=== PATIENT | male | born 1950 | race Hispanic/Latino ===

== ENCOUNTER 2018-09-19 18:36 | Emergency (ER) | payer OTHER ==
[2018-09-19 19:28] LABS: Absolute Lymphocytes (CBC) 0.4 K/uL (0.7-4.9); Absolute Monocytes 0.6 K/uL (0.1-1.3); Absolute Neutrophil 11.4 K/uL (1.8-8.0); Eosinophils % 0.9 % (0-4.4); Hematocrit 44.3 % (39.6-49.0); Lymphocytes % 3.3 % (15.3-44.8); MPV 9.2 fL (7.6-11.3); Monocytes % 4.6 % (3.3-12.3); RBC Red Blood Cell Count 5.25 M/uL (4.33-5.43)
[2018-09-19 19:33] LABS: Protime INR 1.17
[2018-09-19] MEDS ORDERED: DEXAMETHASONE 10 MG/ML VIAL ONE ×2 (19:35→21:41)
[2018-09-19] MEDS ORDERED: HYDROCOD 2.5mg-ACETAMIN 108mg/5mL Soln ONE (19:36)
[2018-09-19] MEDS ORDERED: NA CHLORIDE 0.9% 1,000 ML ONE ×3 (19:36→22:33)
--- NOTE | 2018-09-19 19:47 | RAD REPORT ---
EXAM DESCRIPTION: RAD - Chest Single View - 09/19/2018 7:40 pm CLINICAL HISTORY: difficulty swallowing Chest pain. COMPARISON: CHEST SINGLE VIEW dated 06/11/2012 FINDINGS: Portable technique limits examination quality. The lungs are grossly clear. The heart is upper limit of normal in size. No displaced fractures. IMPRESSION: No acute intrathoracic process suspected.
[2018-09-19 19:57] LABS: Albumin 3.7 g/dL (3.4-5.0); Potassium 3.8 mmol/L (3.5-5.1); Protein, Total 8.3 g/dL (6.4-8.2)
[2018-09-19 19:58] LABS: Blood Morphology Comment NOT SEEN (NOT SEEN); Platelet Estimate ADEQ
[2018-09-19] MEDS ORDERED: MORPHINE 4 MG/ML SYR ONE (20:02)
--- NOTE | 2018-09-19 21:05 | RAD REPORT ---
EXAM DESCRIPTION: CT - Soft Tissue Neck W/Contr CLINICAL HISTORY: difficulty swallowing;Sore throat COMPARISON: No comparisons TECHNIQUE All CT scans are performed using dose optimization technique as appropriate and may includ e automated exposure control or mA/KV adjustment according to patient size. FINDINGS: There is a large amount of abnormal soft tissue noted in the pharynx, particularly along t he right tonsil and tongue base. The poorly defined soft tissue contains fluid and results right to l eft mass effect on the pharyngeal structures. Rim enhancing fluid collection to indicate abscess is n ot seen. The right submandibular gland appears prominent in size. Multiple enlarged lymph nodes are seen along the jugular chain bilaterally, but greater on the right. Mild degenerative changes present in the lower cervical spine. The thyroid gland is normal in appearance. The upper lung taylor are clear. IMPRESSION: A large amount of abnormal soft tissue and fluid is present in the pharynx along the rig ht in the region of the palatine tonsil and tongue base. There is moderate [id number] mass effect on the pharyngeal structures present. Moderate narrowing of the pharynx is seen. Both infectious/infl ammatory and neoplastic etiologies are possible and direct visualization is advised.
[2018-09-19] MEDS ORDERED: CEFTRIAXONE/SWI 1gm 1 GM/10 ML SYR ONE (21:28)
[2018-09-19] MEDS ORDERED: CLINDAMYCIN 900MG/D5W 900 MG/50 ML IVPB IV ONE (21:28)
[2018-09-19] MEDS ORDERED: NA CHLORIDE 0.9% 100 ML IV ONE (22:33)
[2018-09-19] MEDS ORDERED: AMPICILLIN/SULBACTAM 3GM/VIAL ONE (22:33)
--- NOTE | 2018-09-19 22:51 | EDPHYS ---
Physician Documentation [facility] Name: Sylvain Veronica Age: 68 yrs Sex: Male : 1950 Arrival Date: 09/19/2018 Time: 18:40 Bed 19 Private MD: ED Physician Leonel Almazan HPI: 09/19 19:00 This 68 yrs old Male presents to ER via Ambulatory with complaints of Flu cp Symptoms. 19:00 The patient presents with sore throat, dysphagia, of both solids and liquids. cp 19:00 The patient describes throat pain as constant. Onset: The symptoms/episode cp began/occurred 2 day(s) ago. 19:00 Associated signs and symptoms: Pertinent positives: fever, Pertinent negatives chest cp pain, cough, headache. Historical: - Allergies: 18:52 No Known Allergies; iw - Home Meds: 18:52 Metformin Oral [Active]; insulin [Active]; iw - PMHx: 18:52 Diabetes - IDDM; iw - PSHx: 18:52 None; iw - Immunization history:: Adult Immunizations not up to date. - Social history:: Smoking status: Patient/guardian denies using tobacco. - Ebola Screening: : Patient negative for fever greater than or equal to 101.5 degrees Fahrenheit, and additional compatible Ebola Virus Disease symptoms Patient denies exposure to infectious person Patient denies travel to an Ebola-affected area in the 21 days before illness onset No symptoms or risks identified at this time. ROS: 19:05 Constitutional: Positive for fever, poor PO intake, Negative for body aches, chills. cp 19:05 Eyes: Negative for injury, pain, redness, and discharge. cp 19:05 ENT: Positive for difficulty swallowing, hoarseness, sore throat, Negative for drainage from ear(s), ear pain, difficulty handling secretions. 19:05 Neck: Negative for pain with movement, pain at rest, stiffness. 19:05 Cardiovascular: Negative for chest pain, edema, palpitations. 19:05 Respiratory: Negative for cough, shortness of breath, wheezing. 19:05 Abdomen/GI: Negative for abdominal pain, nausea, vomiting, and diarrhea, black/tarry stool, rectal bleeding. 19:05 Back: Negative for pain at rest, pain with movement, radiated pain. 19:05 Skin: Negative for cellulitis, rash. 19:05 Neuro: Negative for altered mental status, headache, weakness. 19:05 All other systems are negative. Exam: 19:10 Constitutional: The patient appears in no acute distress, alert, awake, cp non-diaphoretic, well developed, well nourished, obviously ill, uncomfortable. 19:10 Head/Face: Normocephalic, atraumatic. cp 19:10 Eyes: Periorbital structures: appear normal, Pupils: equal, round, and reactive to light and accomodation, Extraocular movements: intact throughout, Conjunctiva: normal, no exudate, no injection, Sclera: no appreciated abnormality, Lids and lashes: appear normal, bilaterally. 19:10 ENT: External ear(s): are unremarkable, Ear canal(s): are normal, clear, TM's: bulging, is not appreciated, bilaterally, dullness, bilaterally, erythema, is not appreciated, bilaterally, Nose: is normal, Mouth: Lips: moist, Oral mucosa: moist, Tongue: is normal, Posterior pharynx: Airway: patent, Uvula: no erythema, shifted to left, swelling, that is moderate, erythema, that is moderate, Voice: is hoarse. 19:10 Neck: ROM/movement: is normal, is supple, no range of motions limitations, no meningismus, no nuchal rigidity. 19:10 Chest/axilla: Inspection: normal, Palpation: is normal, no crepitus, no tenderness. 19:10 Cardiovascular: Rate: tachycardic, Rhythm: regular. 19:10 Respiratory: the patient does not display signs of respiratory distress, Respirations: normal, no use of accessory muscles, no retractions, no splinting, no tachypnea, labored breathing, is not present, Breath sounds: are clear throughout, no decreased breath sounds, no stridor, no wheezing. 19:10 Abdomen/GI: Inspection: abdomen appears normal, Bowel sounds: active, all quadrants, Palpation: abdomen is soft and non-tender, in all quadrants. 19:10 Neuro: Orientation: to person, place \T\ time. Mentation: is normal, Cerebellar function: is grossly normal, Motor: moves all fours, strength is normal, Sensation: is normal, Gait: is steady. 19:33 ECG was reviewed by the Attending Physician. cp Vital Signs: 18:52 BP 161 / 90; Pulse 125; Resp 18 S; Temp 100.3(O); Pulse Ox 95% on R/A; Weight 92.99 kg; iw Height 5 ft. 10 in. (177.80 cm); Pain 9/10; 19:55 BP 156 / 81; Pulse 119; Resp 20; Pulse Ox 97% ; ao 20:57 BP 144 / 77; Pulse 116; Resp 22; Pulse Ox 98% on R/A; ao 21:35 BP 152 / 83; Pulse 114; Resp 16; Temp 98.9(O); Pulse Ox 97% on R/A; Pain 0/10; ao 23:25 BP 157 / 80; Pulse 112; Resp 20; Pulse Ox 99% on R/A; ao 18:52 Body Mass Index 29.41 (92.99 kg, 177.80 cm) iw MDM: 18:54 Patient medically screened. cp 22:00 Data reviewed: vital signs, nurses notes, lab test result(s), EKG, radiologic studies, cp CT scan, plain films. 22:00 Test interpretation: by ED physician or midlevel provider: ECG, plain radiologic cp studies. Counseling: I had a detailed discussion with the patient and/or guardian regarding: the historical points, exam findings, and any diagnostic results supporting the discharge/admit diagnosis, lab results, radiology results, the need to transfer to another facility. 22:10 Physician consultation: DR Wilkins, ENT physician \T\[facility], will cp consult and requests patient be transferred to services of hospitalist. 09/19 19:06 Order name: CBC with Diff; Complete Time: 20:10 cp 09/19 19:51 Interpretation: Normal except: WBC 12.8; NGHIA% 89.2; LYM% 3.3; BASO% 2.0; NEUT A 11.4; cp LYMA 0.4. 09/19 19:06 Order name: CMP; Complete Time: 20:10 cp 09/19 20:10 Interpretation: Normal except: GLUC 268; BUN 28; GFR 73; AST 11; ALK 149; TP 8.3; A/G cp 0.8; GLOB 4.6. 09/19 19:06 Order name: PT-INR; Complete Time: 19:51 cp 09/19 19:06 Order name: Ptt, Activated; Complete Time: 19:51 cp 09/19 19:06 Order name: XRAY Chest (1 view) cp 09/19 19:06 Order name: CT Soft Tissue Neck W/contr; Complete Time: 21:08 cp 09/19 19:33 Order name: Manual Differential; Complete Time: 20:10 EDMS 09/19 19:51 Order name: RAD; Complete Time: 19:52 EDMS 09/19 19:52 Interpretation: Report reviewed. 09/19 19:06 Order name: EKG; Complete Time: 19:07 cp 09/19 19:06 Order name: EKG - Nurse/Tech; Complete Time: 19:38 cp 09/19 22:25 Order name: Accucheck Blood Glucose; Complete Time: 22:39 cp EC:33 Rate is 121 beats/min. Rhythm is regular. WA interval is normal. QRS interval is cp normal. QT interval is normal. Interpreted by me. Reviewed by me. Administered Medications: 19:33 Drug: Decadron - Dexamethasone 10 mg Route: IVP; Site: left forearm; ao 20:56 Follow up: Response: No adverse reaction ao 19:34 Drug: NS 0.9% 500 ml Route: IV; Rate: bolus; Site: right forearm; ao 20:56 Follow up: IV Status: Completed infusion; IV Intake: 500ml ao 19:34 Not Given (Pt unable to swalow): Lortab Liquid 15 ml PO once ao 19:54 Drug: morphine 4 mg Route: IVP; Site: right forearm; ao 20:56 Follow up: Response: No adverse reaction; Pain is decreased ao 19:55 Drug: NS 0.9% 500 ml Route: IV; Rate: bolus; Site: right forearm; ao 20:56 Follow up: IV Status: Completed infusion; IV Intake: 500ml ao 20:45 Drug: NS 0.9% 1000 ml Route: IV; Rate: 125 ml/hr; Site: left antecubital; ao 21:24 Drug: Clindamycin 900 mg Route: IVPB; Infused Over: 30 mins; Site: right forearm; ao 23:00 Follow up: Response: No adverse reaction; IV Status: Completed infusion; IV Intake: ao 100ml 21:24 Drug: Rocephin - (cefTRIAXone) 1 grams Route: IVPB; Infused Over: 30 mins; Site: left ao antecubital; 22:30 Follow up: Response: No adverse reaction; IV Status: Completed infusion; IV Intake: 10mlao 21:33 Drug: Decadron - Dexamethasone 10 mg Route: IVP; Site: left antecubital; ao 23:00 Follow up: Response: No adverse reaction ao 22:20 Drug: NS 0.9% 1000 ml Route: IV; Rate: 1 bolus; Site: right forearm; ao 23:40 Follow up: IV Status: Completed infusion; IV Intake: 1000ml ao 22:30 Drug: Unasyn 3 grams Route: IVPB; Infused Over: 30 mins; Site: left antecubital; ao 23:20 Follow up: IV Status: Completed infusion; IV Intake: 100ml ao Point of Care Testing: Blood Glucose: 22:37 Blood Glucose: 246 mg/dL; gm Ranges: Critical Glucose Levels:Adult <50 mg/dl or >400 mg/dl <40 mg/dl or >180 mg/dl Disposition: 09/19/18 22:50 Transfer ordered to [facility]. Diagnosis is Right Peritonsillitis. - Reason for transfer: Higher level of care. - Accepting physician is DR Juarez. - Condition is Stable. - Problem is new. - Symptoms have improved. Addendum: 09/23/2018 07:05 Co-signature as Attending Physician, Leonel Almazan MD I agree with the assessment and c veliz plan of care. Signatures: Dispatcher [employer] Leonel Ford MD MD cha Williams, Irene, RN Leonel New PA PA cp Ortiz, Alex, RN RN ao Corrections: (The following items were deleted from the chart) 09/19 19:51 19:51 Normal except: WBC 12.8; NGHIA% 89.2; LYM% 3.3; BASO% 2.0; NEUT A 11.4. cp cp 20:10 20:10 Normal except: GLUC 268; BUN 28; GFR 73; AST 11; ALK 149; TP 8.3. cp cp 20:10 20:10 Normal except: GLUC 268; BUN 28; GFR 73; AST 11; ALK 149; TP 8.3; A/G 0.8. cp cp 20:38 18:55 Influenza Screen (A \T\ B)+BA.LAB.BRZ ordered. EDWA EDMS 20:38 18:55 Group A Streptococcus Rapid Sc+BA.LAB.BRZ ordered. EDMS EDMS 21:24 The patient presents with sore throat, dysphagia, of both solids and liquids, cp cp : 21:24 The patient describes throat pain as constant, cp cp : 21:24 Onset: The symptoms/episode began/occurred 2 day(s) ago, cp cp : 21:24 Severity of symptoms: in the emergency department the symptoms are unchanged, cp despite home interventions, cp : 21:24 Associated signs and symptoms: Pertinent positives: fever, Pertinent negatives cp cough, cp 09/20 00:04 09/19 22:50 09/19/2018 22:50 Transfer ordered to [facility]. ao Diagnosis is Right Peritonsillitis. Reason for transfer: Higher level of care. Accepting physician is DR Juarez. Condition is Stable. Problem is new. Symptoms have improved. cp
--- NOTE | 2018-09-19 22:51 | ER ---
Nurse's Notes [facility] Name: Sylvain Veronica Age: 68 yrs Sex: Male : 1950 Arrival Date: 09/19/2018 Time: 18:40 Bed 19 Private MD: Diagnosis: Right Peritonsillitis Presentation: 09/19 18:49 Presenting complaint: Patient states: sore throat, can't swallow X 2 days, denies iw fever. Transition of care: patient was not received from another setting of care. Onset of symptoms was September 17, 2018. Risk Assessment: Do you want to hurt yourself or someone else? Patient reports no desire to harm self or others. Initial Sepsis Screen: Does the patient meet any 2 criteria? HR > 90 bpm. Does the patient have a suspected source of infection?. Care prior to arrival: None. 18:49 Method Of Arrival: Ambulatory iw 18:49 Acuity: JACKIE 3 iw Historical: - Allergies: 18:52 No Known Allergies; iw - Home Meds: 18:52 Metformin Oral [Active]; insulin [Active]; iw - PMHx: 18:52 Diabetes - IDDM; iw - PSHx: 18:52 None; iw - Immunization history:: Adult Immunizations not up to date. - Social history:: Smoking status: Patient/guardian denies using tobacco. - Ebola Screening: : Patient negative for fever greater than or equal to 101.5 degrees Fahrenheit, and additional compatible Ebola Virus Disease symptoms Patient denies exposure to infectious person Patient denies travel to an Ebola-affected area in the 21 days before illness onset No symptoms or risks identified at this time. Screenin:56 Abuse screen: Denies threats or abuse. Denies injuries from another. Nutritional aj screening: No deficits noted. Tuberculosis screening: No symptoms or risk factors identified. Fall Risk None identified. Assessment: 18:56 General: Appears in no apparent distress. uncomfortable, Behavior is calm, cooperative. aj Pain: Complains of pain in right aspect of posterior pharynx. Neuro: Level of Consciousness is awake, alert, obeys commands, Oriented to person, place, time, situation, Appropriate for age. Respiratory: Airway is patent Respiratory effort is even, unlabored, Respiratory pattern is regular, symmetrical. EENT: Throat is reddened has enlarged tonsils on right with gag reflex present, Reports difficulty swallowing pain in right aspect of posterior pharynx when swallowing. Derm: Skin is intact, is healthy with good turgor, Skin is pink, warm \T\ dry. normal. 19:11 General: Appears in no apparent distress. uncomfortable, Behavior is calm, cooperative. ao Pain: Complains of pain in right aspect of posterior pharynx. Neuro: Level of Consciousness is awake, alert, obeys commands, Oriented to person, place, time, situation, Appropriate for age Moves all extremities. Full function Speech is normal. Cardiovascular: Capillary refill < 3 seconds Patient's skin is warm and dry. Respiratory: Airway is patent Respiratory effort is even, unlabored, Respiratory pattern is regular, symmetrical. GI: No signs and/or symptoms were reported involving the gastrointestinal system. : No signs and/or symptoms were reported regarding the genitourinary system. EENT: Throat is reddened has enlarged tonsils on right with gag reflex present. Derm: Skin is intact, is healthy with good turgor, Skin is pink, warm \T\ dry. normal, Skin temperature is warm. Musculoskeletal: Circulation, motion, and sensation intact. Range of motion:. 19:34 Reassessment: Pt unable to swallow Lortab liquid form. Nichopankaj Craig was notified. ao 20:20 Reassessment: Patient appears in no apparent distress at this time. Patient and/or ao family updated on plan of care and expected duration. Pain level reassessed. 21:30 Reassessment: Patient appears in no apparent distress at this time. Patient and/or ao family updated on plan of care and expected duration. Pain level reassessed. Patient is alert, oriented x 3, equal unlabored respirations, skin warm/dry/pink. 22:45 Reassessment: Called report an was told to call back in 10 min. ao 23:25 Reassessment: Patient appears in no apparent distress at this time. Patient and/or ao family updated on plan of care and expected duration. Pain level reassessed. Patient is alert, oriented x 3, equal unlabored respirations, skin warm/dry/pink. Report called to CHUCK Allred. Patient waiting on EMS transportation. 09/20 00:04 Reassessment: Hand off care to [facility]. Patient VS statable. ao Vital Signs: 09/19 18:52 BP 161 / 90; Pulse 125; Resp 18 S; Temp 100.3(O); Pulse Ox 95% on R/A; Weight 92.99 kg; iw Height 5 ft. 10 in. (177.80 cm); Pain 9/10; 19:55 BP 156 / 81; Pulse 119; Resp 20; Pulse Ox 97% ; ao 20:57 BP 144 / 77; Pulse 116; Resp 22; Pulse Ox 98% on R/A; ao 21:35 BP 152 / 83; Pulse 114; Resp 16; Temp 98.9(O); Pulse Ox 97% on R/A; Pain 0/10; ao 23:25 BP 157 / 80; Pulse 112; Resp 20; Pulse Ox 99% on R/A; ao 18:52 Body Mass Index 29.41 (92.99 kg, 177.80 cm) iw ED Course: 18:40 Patient arrived in ED. mr 18:51 Triage completed. iw 18:52 Arm band placed on. iw 18:54 Leonel Cragi PA is PHCP. cp 18:54 Chu Quiñonez MD is Attending Physician. cp 18:56 Bed in low position. Call light in reach. aj 19:08 Faisal Pedro, RN is Primary Nurse. ao 19:08 Radiology exam delayed due to lab results not completed at this time. (BUN/Creatinine). vm2 19:41 Radiology exam delayed due to lab results not completed at this time. (BUN/Creatinine). vm2 19:45 Inserted saline lock: 22 gauge in right forearm, using aseptic technique. Blood ao collected. 19:53 Leonel Almazan MD is Attending Physician. cp 20:19 Pulse ox on. NIBP on. ao 20:19 Inserted saline lock: 20 gauge in left antecubital area, using aseptic technique. ao 20:[address] vm2 20:50 CT completed. Patient tolerated procedure well. Patient moved back from CT. vm2 21:01 CT Soft Tissue Neck W/contr In Process Unspecified. EDMS 23:48 No provider procedures requiring assistance completed. Patient transferred, IV remains ao in place. Administered Medications: 19:33 Drug: Decadron - Dexamethasone 10 mg Route: IVP; Site: left forearm; ao 20:56 Follow up: Response: No adverse reaction ao 19:34 Drug: NS 0.9% 500 ml Route: IV; Rate: bolus; Site: right forearm; ao 20:56 Follow up: IV Status: Completed infusion; IV Intake: 500ml ao 19:34 Not Given (Pt unable to swalow): Lortab Liquid 15 ml PO once ao 19:54 Drug: morphine 4 mg Route: IVP; Site: right forearm; ao 20:56 Follow up: Response: No adverse reaction; Pain is decreased ao 19:55 Drug: NS 0.9% 500 ml Route: IV; Rate: bolus; Site: right forearm; ao 20:56 Follow up: IV Status: Completed infusion; IV Intake: 500ml ao 20:45 Drug: NS 0.9% 1000 ml Route: IV; Rate: 125 ml/hr; Site: left antecubital; ao 21:24 Drug: Clindamycin 900 mg Route: IVPB; Infused Over: 30 mins; Site: right forearm; ao 23:00 Follow up: Response: No adverse reaction; IV Status: Completed infusion; IV Intake: ao 100ml 21:24 Drug: Rocephin - (cefTRIAXone) 1 grams Route: IVPB; Infused Over: 30 mins; Site: left ao antecubital; 22:30 Follow up: Response: No adverse reaction; IV Status: Completed infusion; IV Intake: 10mlao 21:33 Drug: Decadron - Dexamethasone 10 mg Route: IVP; Site: left antecubital; ao 23:00 Follow up: Response: No adverse reaction ao 22:20 Drug: NS 0.9% 1000 ml Route: IV; Rate: 1 bolus; Site: right forearm; ao 23:40 Follow up: IV Status: Completed infusion; IV Intake: 1000ml ao 22:30 Drug: Unasyn 3 grams Route: IVPB; Infused Over: 30 mins; Site: left antecubital; ao 23:20 Follow up: IV Status: Completed infusion; IV Intake: 100ml ao Point of Care Testing: Blood Glucose: 22:37 Blood Glucose: 246 mg/dL; gm Ranges: Intake: 20:56 IV: 500ml; Total: 500ml. ao 20:56 IV: 500ml; Total: 1000ml. ao 22:30 IV: 10ml; Total: 1010ml. ao 23:00 IV: 100ml; Total: 1110ml. ao 23:20 IV: 100ml; Total: 1210ml. ao 23:40 IV: 1000ml; Total: 2210ml. ao Outcome: 22:50 ER care complete, transfer ordered by MD. cp 23:48 Transferred by ground EMS to [facility], [facility] [place], Transfer form completed. ao X-rays sent w/ patient. 23:48 Condition: stable 23:48 Instructed on the need for transfer. 09/20 00:04 Patient left the ED. ao Signatures: Dispatcher [employer] EDVioletta Redman, RN Verna Huerta Irene, RN Leonel New, YASMINE PA Faisal Akbar RN RN ao McGuire, [facility] Jacquie Simon gm
[2018-09-20 01:11] VITALS: TEMP 98.9
[2018-09-20 01:12] VITALS: BP 157/80; O2SAT 99
--- NOTE | 2018-09-20 11:53 | EKG ---
Test Date: 2018-09-19 Test Time: 19:23:14 Food Consultant: MARILU MEASUREMENT RESULTS: Intervals: Rate: 121 [place]: 154 QRSD: 92 QT: 322 QTc: 457 Dickey: P: 29 AZ: 154 QRS: 44 T: 21 INTERPRETIVE STATEMENTS: Sinus tachycardia Otherwise normal ECG Compared to ECG 06/11/2012 10:52:43 Sinus rhythm no longer present Electronically Signed On 09-20-18 11:51:56 ELECTRICAL TECH/PROJECT MANAGER by Rob Mendoza
== END 2018-09-20 00:04 | disposition short-term general hospital (02) ==
LOC: ER 18:36
DX: J36 Peritonsillar abscess (principal); E11.9 Type 2 diabetes mellitus without complications; Z79.4 Long term (current) use of insulin
CPT/HCPCS: 36415; 70491; 71045; 80053; 82962; 85025; 85610; 85730; 93005; 99285; J0295; J0696; J1100 ×2; J7030 ×3; Q9967

== ENCOUNTER 2020-03-27 20:31 | Inpatient (IN) | payer OTHER ==
--- OUTSIDE RECORDS SUMMARY | 2020-03-27 20:33 | XMS REPORT | Continuity of Care Document ---
:1950 Author Organization [facility] t Address [address] [place] [address] Care Team Providers Name Role Phone Shyam Hernandez Primary Care Physician TENZIN CHAPARRO Attending Clinician Unavailable TENZIN CHAPARRO Admitting Clinician Unavailable Problems Condition Condition Condition Status Onset Resolution Last Treating Co mments Source Name Details Category Date Date Treatment Clinician Date Phlegmon Phlegmon Disease [facility] Allergies, Adverse Reactions, Alerts This patient has no known allergies or adverse reactions. Social History Social Habit Start Date Stop Date Quantity Comments Source Sex Assigned At [facility] Medications Ordered Filled Start Stop Current Ordering Indication Dosage Frequency Signature Comments Components Source Medication Medication Date Date Medication? Clinician (SIG) Name Name Magic Yes 5mL Take [address] [facility] Mouthwash 1-28 by mouth [facility] - WITH 00:00: every 6 Medical steroid 00 (six) Center oral hours. suspension metFORMIN Yes 1000mg Take 1,[address] [facility] (GLUCOPHAGE 1-25 mg by [facility] - ) 1000 MG 01:37: mouth 2 Medic al tablet 48 (two) Center times daily with breakfast and lunch. HUMULIN 2017-08 Yes 30U Inject [facility] 70/30 U-100 2-18 30-60 [facility] - INSULIN 100 00:00: Units Medic al unit/mL 00 subcutaneo Center (70-30) usly 2 injection (two) times daily with breakfast and dinner Inject 60 units after breakfast Inject 30 units after dinner. Procedures This patient has no known procedures. Results Test Description Test Time Test Comments Results Result Comments Source POCT-GLUCOSE METER 2018-09-23 14:00:00 Test Item Value Reference Range Interpretation Comme nts POC-GLUCOSE METER (BEAKER) (test 172 mg/dL 70-110 [address]) [facility] 7[address] 0 POCT-GLUCOSE [id number] 08:19:00 Test Item Value Reference Range Interpretation Comments POC-GLUCOSE METER 145 mg/dL 70-110 H TESTED AT [place] [address] [facility] (test code = JUANITASURESH Thorne [facility] 1538) [id number] POCT-GLUCOSE [id number] 21:45:00 Test Item Value Reference Range Interpretation Comments POC-GLUCOSE METER 260 mg/dL 70-110 H TESTED AT [place] [address] ([facility]) (test code = JUANITASURESH Mati [facility] 1538) [id number] POCT-GLUCOSE [id number] 16:53:00 Test Item Value Reference Range Interpretation Comments POC-GLUCOSE METER 149 mg/dL 70-110 H TESTED AT [place] [address] ([facility]) (test code = ONIEL Thorne [facility] 1538) [id number] POCT-GLUCOSE [id number] 12:19:00 Test Item Value Reference Range Interpretation Comments POC-GLUCOSE METER 141 mg/dL 70-110 H TESTED AT [place] [address] ([facility] (test code = JUANITASURESH Mati [facility] 1538) [id number] POCT-GLUCOSE [id number] 07:38:00 Test Item Value Reference Range Interpretation Comments POC-GLUCOSE METER 127 mg/dL 70-110 H TESTED AT [place] [address] ([facility]) (test code = JUANITASURESH Thorne [facility] 1538) [id number] BASIC METABOLIC [id number] 04:59:00 Test Item Value Reference Range Interpretation Comments SODIUM (BEAKER) 138 meq/L 136-145 (test code = 381) POTASSIUM (BEAKER) 3.3 meq/L 3.5-5.1 L (test code = 379) CHLORIDE (BEAKER) 106 meq/L 98-107 (test code = 382) CO2 (BEAKER) (test 22 meq/L 22-29 code = 355) BLOOD UREA NITROGEN 12 mg/dL 7-21 (BEAKER) (test code = 354) CREATININE (BEAKER) 0.74 mg/dL 0.57-1.25 (test code = 358) GLUCOSE RANDOM 112 mg/dL 70-105 H (BEAKER) (test code = 652) CALCIUM (BEAKER) 8.1 mg/dL 8.4-10.2 L (test code = 697) EGFR (BEAKER) (test 106 mL/min/1.73 ESTIM ATED GFR IS code = 1092) sq m NOT ACCURATE CREATININE CLEARANCE IN PREDICTING GLOMERULAR FILTRATION RATE . ESTIMATED GFR I S NOT APPLICABLE FOR DIALYSIS PATIEN TS. CBC W/PLT COUNT & AUTO [id number] 04:28:00 Test Item Value Reference Range Interpretation Comments WHITE BLOOD CELL COUNT (BEAKER) 7.9 K/ L 3.5-10.5 (test code = 775) RED BLOOD CELL COUNT (BEAKER) 4.24 M/ L 4.63-6.08 L (test code = 761) HEMOGLOBIN (BEAKER) (test code = 12.2 GM/DL 13.7-17.5 L 410) HEMATOCRIT (BEAKER) (test code = 36.5 % 40.1-51.0 L 411) MEAN CORPUSCULAR VOLUME (BEAKER) 86.1 fL 79.0-92.2 (test code = 753) MEAN CORPUSCULAR HEMOGLOBIN 28.8 pg 25.7-32.2 (BEAKER) (test code = 751) MEAN CORPUSCULAR HEMOGLOBIN CONC 33.4 GM/DL 32.3-36.5 (BEAKER) (test code = 752) RED CELL DISTRIBUTION WIDTH 12.4 % 11.6-14.4 (BEAKER) (test code = 412) PLATELET COUNT (BEAKER) (test 179 K/CU MM 150-450 code = 756) MEAN PLATELET VOLUME (BEAKER) 11.2 fL 9.4-12.4 (test code = 754) NUCLEATED RED BLOOD CELLS 0 /100 WBC 0-0 (BEAKER) (test code = 413) NEUTROPHILS RELATIVE PERCENT 64 % (BEAKER) (test code = 429) LYMPHOCYTES RELATIVE PERCENT 25 % (BEAKER) (test code = 430) MONOCYTES RELATIVE PERCENT 9 % (BEAKER) (test code = 431) EOSINOPHILS RELATIVE PERCENT 1 % (BEAKER) (test code = 432) BASOPHILS RELATIVE PERCENT 0 % (BEAKER) (test code = 437) NEUTROPHILS ABSOLUTE COUNT 5.06 K/ L 1.78-5.38 (BEAKER) (test code = 670) LYMPHOCYTES ABSOLUTE COUNT 2.00 K/ L 1.32-3.57 (BEAKER) (test code = 414) MONOCYTES ABSOLUTE COUNT (BEAKER) 0.67 K/ L 0.30-0.82 (test code = 415) EOSINOPHILS ABSOLUTE COUNT 0.10 K/ L 0.04-0.54 (BEAKER) (test code = 416) BASOPHILS ABSOLUTE COUNT (BEAKER) 0.03 K/ L 0.01-0.08 (test code = 417) IMMATURE GRANULOCYTES-RELATIVE 1 % 0-1 PERCENT (BEAKER) (test code = 2801) POCT-GLUCOSE [id number] 22:48:00 Test Item Value Reference Range Interpretation Comments POC-GLUCOSE METER 133 mg/dL 70-110 H TESTED AT [place] [address] ([facility]) (test code = [facility] 1538) [id number] POCT-GLUCOSE [id number] 18:05:00 Test Item Value Reference Range Interpretation Comments POC-GLUCOSE METER 167 mg/dL 70-110 H TESTED AT [place] [address] ([facility]) (test code = [facility] 1538) [id number] POCT-GLUCOSE [id number] 11:51:00 Test Item Value Reference Range Interpretation Comments POC-GLUCOSE METER 142 mg/dL 70-110 H TESTED AT [place] [address] ([facility]) (test code = [facility] 1538) [id number] POCT-GLUCOSE [id number] 07:48:00 Test Item Value Reference Range Interpretation Comments POC-GLUCOSE METER 138 mg/dL 70-110 H TESTED AT [place] [address] ([facility]) (test code = [facility] 1538) [id number] BASIC METABOLIC [id number] 06:56:00 Test Item Value Reference Range Interpretation Comments SODIUM (BEAKER) 140 meq/L 136-145 (test code = 381) POTASSIUM (BEAKER) 3.5 meq/L 3.5-5.1 (test code = 379) CHLORIDE (BEAKER) 109 meq/L 98-107 H (test code = 382) CO2 (BEAKER) (test 21 meq/L 22-29 L code = 355) BLOOD UREA NITROGEN 25 mg/dL 7-21 H (BEAKER) (test code = 354) CREATININE (BEAKER) 0.81 mg/dL 0.57-1.25 (test code = 358) GLUCOSE RANDOM 145 mg/dL 70-105 H (BEAKER) (test code = 652) CALCIUM (BEAKER) 8.3 mg/dL 8.4-10.2 L (test code = 697) EGFR (BEAKER) (test 95 mL/min/1.73 ESTIMA JESSICA GFR IS code = 1092) sq m NOT ACCURATE CREATININE CLEARANCE IN PREDICTING GLOMERULAR FILTRATION RATE . ESTIMATED GFR I S NOT APPLICABLE FOR DIALYSIS PATIEN TS. BASIC METABOLIC [id number] 06:50:00 Test Item Value Reference Range Interpretation Comments SODIUM (BEAKER) 139 meq/L 136-145 (test code = 381) POTASSIUM (BEAKER) 3.5 meq/L 3.5-5.1 (test code = 379) CHLORIDE (BEAKER) 109 meq/L 98-107 H (test code = 382) CO2 (BEAKER) (test 21 meq/L 22-29 L code = 355) BLOOD UREA NITROGEN 26 mg/dL 7-21 H (BEAKER) (test code = 354) CREATININE (BEAKER) 0.80 mg/dL 0.57-1.25 (test code = 358) GLUCOSE RANDOM 145 mg/dL 70-105 H (BEAKER) (test code = 652) CALCIUM (BEAKER) 8.3 mg/dL 8.4-10.2 L (test code = 697) EGFR (BEAKER) (test 97 mL/min/1.73 ESTIMA JESSICA GFR IS code = 1092) sq m NOT ACCURATE CREATININE CLEARANCE IN PREDICTING GLOMERULAR FILTRATION RATE . ESTIMATED GFR I S NOT APPLICABLE FOR DIALYSIS PATIEN TS. CBC W/PLT COUNT & AUTO [id number] 06:34:00 Test Item Value Reference Range Interpretation Comments WHITE BLOOD CELL COUNT (BEAKER) 11.5 K/ L 3.5-10.5 H (test code = 775) RED BLOOD CELL COUNT (BEAKER) 4.32 M/ L 4.63-6.08 L (test code = 761) HEMOGLOBIN (BEAKER) (test code = 12.3 GM/DL 13.7-17.5 L 410) HEMATOCRIT (BEAKER) (test code = 37.3 % 40.1-51.0 L 411) MEAN CORPUSCULAR VOLUME (BEAKER) 86.3 fL 79.0-92.2 (test code = 753) MEAN CORPUSCULAR HEMOGLOBIN 28.5 pg 25.7-32.2 (BEAKER) (test code = 751) MEAN CORPUSCULAR HEMOGLOBIN CONC 33.0 GM/DL 32.3-36.5 (BEAKER) (test code = 752) RED CELL DISTRIBUTION WIDTH 12.5 % 11.6-14.4 (BEAKER) (test code = 412) PLATELET COUNT (BEAKER) (test 194 K/CU MM 150-450 code = 756) MEAN PLATELET VOLUME (BEAKER) 10.8 fL 9.4-12.4 (test code = 754) NUCLEATED RED BLOOD CELLS 0 /100 WBC 0-0 (BEAKER) (test code = 413) NEUTROPHILS RELATIVE PERCENT 72 % (BEAKER) (test code = 429) LYMPHOCYTES RELATIVE PERCENT 19 % (BEAKER) (test code = 430) MONOCYTES RELATIVE PERCENT 8 % (BEAKER) (test code = 431) EOSINOPHILS RELATIVE PERCENT 0 % (BEAKER) (test code = 432) BASOPHILS RELATIVE PERCENT 0 % (BEAKER) (test code = 437) NEUTROPHILS ABSOLUTE COUNT 8.32 K/ L 1.78-5.38 H (BEAKER) (test code = 670) LYMPHOCYTES ABSOLUTE COUNT 2.17 K/ L 1.32-3.57 (BEAKER) (test code = 414) MONOCYTES ABSOLUTE COUNT (BEAKER) 0.93 K/ L 0.30-0.82 H (test code = 415) EOSINOPHILS ABSOLUTE COUNT 0.01 K/ L 0.04-0.54 L (BEAKER) (test code = 416) BASOPHILS ABSOLUTE COUNT (BEAKER) 0.03 K/ L 0.01-0.08 (test code = 417) IMMATURE GRANULOCYTES-RELATIVE 0 % 0-1 PERCENT (BEAKER) (test code = 2801) CBC W/PLT COUNT & AUTO [id number] 06:33:00 Test Item Value Reference Range Interpretation Comments WHITE BLOOD CELL COUNT (BEAKER) 11.4 K/ L 3.5-10.5 H (test code = 775) RED BLOOD CELL COUNT (BEAKER) 4.37 M/ L 4.63-6.08 L (test code = 761) HEMOGLOBIN (BEAKER) (test code = 12.3 GM/DL 13.7-17.5 L 410) HEMATOCRIT (BEAKER) (test code = 37.6 % 40.1-51.0 L 411) MEAN CORPUSCULAR VOLUME (BEAKER) 86.0 fL 79.0-92.2 (test code = 753) MEAN CORPUSCULAR HEMOGLOBIN 28.1 pg 25.7-32.2 (BEAKER) (test code = 751) MEAN CORPUSCULAR HEMOGLOBIN CONC 32.7 GM/DL 32.3-36.5 (BEAKER) (test code = 752) RED CELL DISTRIBUTION WIDTH 12.6 % 11.6-14.4 (BEAKER) (test code = 412) PLATELET COUNT (BEAKER) (test 183 K/CU MM 150-450 code = 756) MEAN PLATELET VOLUME (BEAKER) 10.8 fL 9.4-12.4 (test code = 754) NUCLEATED RED BLOOD CELLS 0 /100 WBC 0-0 (BEAKER) (test code = 413) NEUTROPHILS RELATIVE PERCENT 72 % (BEAKER) (test code = 429) LYMPHOCYTES RELATIVE PERCENT 19 % (BEAKER) (test code = 430) MONOCYTES RELATIVE PERCENT 8 % (BEAKER) (test code = 431) EOSINOPHILS RELATIVE PERCENT 0 % (BEAKER) (test code = 432) BASOPHILS RELATIVE PERCENT 0 % (BEAKER) (test code = 437) NEUTROPHILS ABSOLUTE COUNT 8.24 K/ L 1.78-5.38 H (BEAKER) (test code = 670) LYMPHOCYTES ABSOLUTE COUNT 2.20 K/ L 1.32-3.57 (BEAKER) (test code = 414) MONOCYTES ABSOLUTE COUNT (BEAKER) 0.86 K/ L 0.30-0.82 H (test code = 415) EOSINOPHILS ABSOLUTE COUNT 0.02 K/ L 0.04-0.54 L (BEAKER) (test code = 416) BASOPHILS ABSOLUTE COUNT (BEAKER) 0.02 K/ L 0.01-0.08 (test code = 417) IMMATURE GRANULOCYTES-RELATIVE 0 % 0-1 PERCENT (BEAKER) (test code = 2801) POCT-GLUCOSE [id number] 21:02:00 Test Item Value Reference Range Interpretation Comments POC-GLUCOSE METER 232 mg/dL 70-110 H TESTED AT [facility] 6720 (BEAKER) (test code = [facility] 1538) [id number] POCT-GLUCOSE [id number] 17:47:00 Test Item Value Reference Range Interpretation Comments POC-GLUCOSE METER 278 mg/dL 70-110 H TESTED AT [place] [address] ([facility]) (test code = [facility] 1538) [id number] POCT-GLUCOSE [id number] 13:08:00 Test Item Value Reference Range Interpretation Comments POC-GLUCOSE METER 307 mg/dL 70-110 H TESTED AT [place] [address] ([facility]) (test code = [facility] 1538) [id number] POCT-GLUCOSE [id number] 09:05:00 Test Item Value Reference Range Interpretation Comments POC-GLUCOSE METER 274 mg/dL 70-110 H TESTED AT [place] [address] ([facility]) (test code = [facility] 1538) [id number]
--- OUTSIDE RECORDS SUMMARY | 2020-03-27 20:33 | XMS REPORT | Clinical Summary ---
:1950 Author Organization [facility] [employer] [facility] Address [address] [place] [address] Care Team Providers Name Role Phone Shyam Hernandez Primary Care Provider Allergies No Known Allergies Medications Medication Sig Dispensed Refills Start Date End Date Status HUMULIN 70/30 Inject 30-60 Units 0 08/13/2018 Active U-100 INSULIN 100 subcutaneously 2 (two) unit/mL (70-30) times daily with injection breakfast and dinner Inject 60 units after breakfast Inject 30 units after dinner. metFORMIN Take 1,000 mg by mouth 0 Active (GLUCOPHAGE) 1000 2 (two) times daily MG tablet with breakfast and lunch. Magic Mouthwash Take 5 mLs by mouth 50 mL 0 09/23/2018 Active WITH steroid oral every 6 (six) hours. suspension Active Problems Problem Noted Date Phlegmon 09/20/2018 Social History Tobacco Use Types Packs/Day Years Used Date Never Assessed Sex Assigned at Date Recorded Not on file Job Start Date Occupation Industry Not on file Not on file Not on file Travel History Travel Start Travel End No recent travel history available. Last Filed Vital Signs Not on file Plan of Treatment Not on file Results Not on fileafter 03/27/2019 Insurance Payer Benefit Plan / Group Subscriber ID Type Phone A ddress MEDICARE MEDICARE PART A xxxxxxxxxxx Medicare Advance Directives For more information, please contact:[facility] [id number] [place], [place] [phone] Code Status Date Activated Date Inactivated Comments Full Code 09/20/2018 2:46 AM This code status was determined by: Patient
[2020-03-27] MEDS ORDERED: NA CHLORIDE 0.9% 1,000 ML ONE (21:47)
[2020-03-27 22:09] LABS: Absolute Lymphocytes (CBC) 0.7 K/uL (0.7-4.9); Basophils % 0.1 % (0-1.3); Hematocrit 38.4 % (39.6-49.0); MPV 9.1 fL (7.6-11.3); RBC Red Blood Cell Count 4.73 M/uL (4.33-5.43)
[2020-03-27 22:25] LABS: Protime INR 1.16
[2020-03-27 22:38] LABS: Albumin 3.5 g/dL (3.4-5.0); Bilirubin Direct 0.2 mg/dL (0-0.2); Bilirubin Total 0.7 mg/dL (0.2-1.0); Potassium 3.2 mmol/L (3.5-5.1); Protein, Total 7.8 g/dL (6.4-8.2); Troponin (Emerg Dept Use Only) 0.07 ng/mL (0.0-0.045)
[2020-03-27] MEDS ORDERED: METHYLPREDNISOLONE 125 MG INJ ONE (22:51)
[2020-03-27] MEDS ORDERED: AZITHROMYCIN 500 MG INJ IVPB ONE (22:52)
[2020-03-27] MEDS ORDERED: CEFTRIAXONE/SWI 1gm 1 GM/10 ML SYR ONE (22:52)
[2020-03-27] MEDS ORDERED: NA CHLORIDE 0.9% 250 ML ONE (22:52)
--- NOTE | 2020-03-27 23:02 | ER ---
Nurse's Notes [facility] Name: Sylvain Veronica Age: 69 yrs Sex: Male : 1950 Arrival Date: 03/27/2020 Time: 20:35 Bed 8 Private MD: Diagnosis: Pneumonia due to other specified infectious organisms Presentation: 03/27 20:50 Chief complaint: Patient states: Cough and SOB for 2 days. SOB worse with laying down. ll1 + nausea, + body aches. Coronavirus screen: Client denies travel out of the [place] in the last 14 days. cough unrelated to allergies, difficulty breathing, fatigue, fever, muscle pain, shortness of breath, Client presents with at least one sign or symptom that may indicate coronavirus-19. Standard/surgical mask placed on the client. Ebola Screen: Patient denies travel to an Ebola-affected area in the 21 days before illness onset. Initial Sepsis Screen: Does the patient meet any 2 criteria? HR > 90 bpm. Does the patient have a suspected source of infection? Yes: Productive cough/pneumonia. Risk Assessment: Do you want to hurt yourself or someone else? Patient reports no desire to harm self or others. Onset of symptoms was March 25, 2020. 20:50 Method Of Arrival: Ambulatory ll1 20:50 Acuity: JACKIE 3 ll1 Triage Assessment: 22:36 GI: Reports nausea. ao Historical: - Allergies: 20:49 No Known Allergies; ll1 - PMHx: 20:49 Diabetes - IDDM; ll1 - PSHx: 20:49 Cholecystectomy; ll1 - Immunization history:: Flu vaccine is not up to date. - Social history:: Smoking status: Patient denies any tobacco usage or history of. Patient/guardian denies using alcohol, street drugs, tobacco products. Screenin:07 Abuse screen: Denies threats or abuse. Denies injuries from another. Nutritional ao screening: No deficits noted. Tuberculosis screening: Fall Risk None identified. Assessment: 21:45 General: Appears in no apparent distress. comfortable, Behavior is calm, cooperative, ao appropriate for age. Pain: Denies pain. Neuro: Level of Consciousness is awake, alert, obeys commands, Oriented to person, place, time, situation, Appropriate for age Moves all extremities. Full function Speech is normal. Cardiovascular: Heart tones S1 S2. Respiratory: Airway is patent Respiratory effort is even, unlabored, Respiratory pattern is regular, symmetrical. GI: Abdomen is. : No signs and/or symptoms were reported regarding the genitourinary system. EENT: No signs and/or symptoms were reported regarding the EENT system. Derm: Skin is intact, Skin is pink, warm \T\ dry. Skin temperature is hot. 22:36 Reassessment: Patient appears in no apparent distress at this time. Patient is alert, ao oriented x 3, equal unlabored respirations, skin warm/dry/pink. Waiting on lab work. 23:07 Reassessment: Nicho Page at bed side. Patient o be admitted as PUI and COVID. ao 23:30 Reassessment: awaiting for in patient orders. rr5 03/28 00:29 Reassessment: Pt admitted to the hospital. Report given to CHUCK Goodwin. ao Vital Signs: 03/27 20:50 BP 149 / 102; Pulse 125; Resp 18; Temp 99.3; Pulse Ox 98% ; Weight 92.99 kg; Height 5 ll1 ft. 10 in. (177.80 cm); Pain 2/10; 23:06 BP 133 / 87; Pulse 106; Resp 27; Temp 99.8; Pulse Ox 97% on R/A; ao 03/28 00:10 BP 139 / 96; Pulse 110; Resp 28; Pulse Ox 96% ; rr5 00:29 BP 139 / 96; Pulse 98; Resp 25; Pulse Ox 95% on R/A; ao 03/27 20:50 Body Mass Index 29.41 (92.99 kg, 177.80 cm) ll1 ED Course: 03/27 20:35 Patient arrived in ED. ag3 20:51 Triage completed. ll1 20:51 Arm band placed on Patient placed in an exam room, on a stretcher. ll1 20:52 Leonel Craig PA is PHCP. cp 20:52 Frank Flower MD is Attending Physician. cp 20:57 Faisal Pedro, CHUCK is Primary Nurse. ao 21:47 XRAY Chest (1 view) In Process Unspecified. EDMS 22:10 Inserted saline lock: 20 gauge in right forearm, using aseptic technique. Blood oe collected. 22:36 Patient has correct armband on for positive identification. Pulse ox on. NIBP on. ao 23:01 Karina Kemp MD is Hospitalizing Provider. cp 03/28 00:09 No provider procedures requiring assistance completed. Patient admitted, IV remains in rr5 place. intact, No redness/swelling at site. Administered Medications: 03/27 21:47 Drug: NS 0.9% 1000 ml Route: IV; Rate: 1 bolus; Site: right antecubital; ao 03/28 00:00 Follow up: IV Status: Completed infusion; IV Intake: 1500ml ao 03/27 22:45 Drug: Zithromax 500 mg Route: IVPB; Infused Over: 1 hrs; Site: right forearm; ao 03/28 00:28 Follow up: IV Status: Completed infusion ao 03/27 22:50 Drug: Rocephin 1 grams Route: IV; Rate: calculated rate; Site: right forearm; ao 23:00 Follow up: IV Status: Completed infusion; IV Intake: 10ml ao 23:09 Drug: SOLU-Medrol 80 mg Route: IVP; Site: right forearm; ao 03/28 00:27 Follow up: Response: No adverse reaction ao 03/27 23:36 Drug: Lovenox 1 mg/kg {Note: 92.9mg.} Route: Sub-Q; Site: left lower abdomen; ll1 08 00:27 Follow up: Response: No adverse reaction ao 03/27 23:37 Drug: Potassium Effervescent Tablet 50 mEq Route: PO; ll1 03/28 00:27 Follow up: Response: No adverse reaction ao 03/27 23:38 Drug: Aspirin Chewable Tablet 324 mg Route: PO; ll1 08 00:27 Follow up: Response: No adverse reaction ao 00:27 Follow up: Response: No adverse reaction ao Intake: 03/27 23:00 IV: 10ml; Total: 10ml. ao 03/28 00:00 IV: 1500ml; Total: 1510ml. ao Outcome: 03/27 23:02 Decision to Hospitalize by Provider. cp 23:30 Admitted to Tele accompanied by tech, via stretcher, room 431, with chart, Report rr5 called to robbin 23:30 Condition: stable rr5 23:30 Instructed on the need for admit. 03/28 00:54 Patient left the ED. ao Signatures: Dispatcher [employer] EDMS Leonel Craig PA PA cp Ortiz, Alex, RN RN ao Obed Wagoner Alice ag3 Gabriel Sherwood RN RN rr5 Janae Oakes RN RN ll1 Corrections: (The following items were deleted from the chart) 03/27 23:37 23:36 Lovenox 1 mg/kg Sub-Q in left lower abdomen ll1 ll1
--- NOTE | 2020-03-27 23:03 | EDPHYS ---
Physician Documentation [facility] Name: Sylvain Veronica Age: 69 yrs Sex: Male : 1950 Arrival Date: 03/27/2020 Time: 20:35 Bed 8 Private MD: ED Physician Frank Flower HPI: 03/27 21:15 This 69 yrs old Male presents to ER via Ambulatory with complaints of Nausea, cp Cough. 21:15 The patient presents to the emergency department with nausea, that is moderate. Onset: cp The symptoms/episode began/occurred 2 day(s) ago. Associated signs and symptoms: Pertinent positives: cough, shortness of breath, Pertinent negatives: abdominal pain, fever. Historical: - Allergies: 20:49 No Known Allergies; ll1 - PMHx: 20:49 Diabetes - IDDM; ll1 - PSHx: 20:49 Cholecystectomy; ll1 - Immunization history:: Flu vaccine is not up to date. - Social history:: Smoking status: Patient denies any tobacco usage or history of. Patient/guardian denies using alcohol, street drugs, tobacco products. ROS: 21:20 Constitutional: Positive for body aches, Negative for fever, poor PO intake. cp 21:20 Eyes: Negative for injury, pain, redness, and discharge. cp 21:20 ENT: Negative for ear pain, sore throat, difficulty swallowing, difficulty handling secretions. 21:20 Cardiovascular: Negative for chest pain. 21:20 Respiratory: Positive for cough, shortness of breath, Negative for wheezing. 21:20 Abdomen/GI: Positive for nausea, Negative for abdominal pain, vomiting, diarrhea, constipation. 21:20 Skin: Negative for rash. 21:20 Neuro: Negative for altered mental status, headache, weakness. 21:20 All other systems are negative. Exam: 21:30 Constitutional: The patient appears in no acute distress, alert, awake, cp non-diaphoretic, non-toxic, well developed, well nourished. 21:30 Head/Face: Normocephalic, atraumatic. cp 21:30 Eyes: Periorbital structures: appear normal, Conjunctiva: normal, no exudate, no injection, Sclera: no appreciated abnormality, Lids and lashes: appear normal, bilaterally. 21:30 ENT: External ear(s): are unremarkable, Nose: is normal, Mouth: Lips: moist, Oral mucosa: moist, Posterior pharynx: is normal, airway is patent, no erythema, no exudate. 21:30 Chest/axilla: Inspection: normal, Palpation: is normal, no crepitus, no tenderness. 21:30 Cardiovascular: Rate: tachycardic, Rhythm: regular, Edema: is not appreciated, JVD: is not appreciated. 21:30 Respiratory: the patient does not display signs of respiratory distress, Respirations: labored breathing, that is mild, Breath sounds: bronchial sounds, that are mild, are heard diffusely, wheezing: is not appreciated. 21:30 Abdomen/GI: Inspection: abdomen appears normal, Palpation: abdomen is soft and non-tender, in all quadrants. 21:30 Back: pain, is absent, ROM is normal. 21:30 Skin: no rash present. 21:30 Neuro: Orientation: to person, place \T\ time. Mentation: is normal, Motor: moves all fours, strength is normal. Vital Signs: 20:50 BP 149 / 102; Pulse 125; Resp 18; Temp 99.3; Pulse Ox 98% ; Weight 92.99 kg; Height 5 ll1 ft. 10 in. (177.80 cm); Pain 2/10; 23:06 BP 133 / 87; Pulse 106; Resp 27; Temp 99.8; Pulse Ox 97% on R/A; ao 03/28 00:10 BP 139 / 96; Pulse 110; Resp 28; Pulse Ox 96% ; rr5 00:29 BP 139 / 96; Pulse 98; Resp 25; Pulse Ox 95% on R/A; ao 03/27 20:50 Body Mass Index 29.41 (92.99 kg, 177.80 cm) ll1 MDM: 03/27 20:57 Patient medically screened. cp 22:00 Differential diagnosis: pneumonia, pulmonary edema, respiratory failure, sepsis. 23:00 Physician consultation: Karina Kemp MD was called at 23:01, was contacted at 23:01, regarding admission, to the telemetry unit. patient's condition. 23:00 Data reviewed: vital signs, nurses notes, lab test result(s), radiologic studies, plain cp films. 23:00 Counseling: I had a detailed discussion with the patient and/or guardian regarding: the cp historical points, exam findings, and any diagnostic results supporting the discharge/admit diagnosis, lab results, radiology results, the need for further work-up and treatment in the hospital. Response to treatment: the patient's symptoms have mildly improved after treatment. 03/27 21:12 Order name: Basic Metabolic Panel cp 03/27 21:12 Order name: CBC with Diff; Complete Time: 22:24 cp 03/27 22:55 Interpretation: Normal except: HGB 13.2; HCT 38.4; MCV 81.3; PLT 149; NGHIA% 78.1; LYM% cp 12.0. 03/27 21:12 Order name: LFT's; Complete Time: 22:54 cp 03/27 22:55 Interpretation: Normal except: ALK 120; GLOB 4.3; A/G 0.8. cp 03/27 21:12 Order name: Magnesium; Complete Time: 22:54 cp 03/27 21:12 Order name: NT PRO-BNP; Complete Time: 22:54 cp 03/27 22:54 Interpretation: NT PRO-BNP 4170; Reviewed. cp 03/27 21:12 Order name: PT-INR; Complete Time: 22:54 cp 03/27 23:00 Interpretation: Normal except: PT 13.7. cp 03/27 21:12 Order name: Troponin (emerg Dept Use Only); Complete Time: 22:54 cp 03/27 22:54 Interpretation: Abnormal: TROPED 0.07. cp 03/27 21:12 Order name: D-Dimer; Complete Time: 22:54 cp 03/27 21:12 Order name: CRP; Complete Time: 22:54 cp 03/27 22:55 Interpretation: Abnormal: C-REACTIVE PROT 100.00. cp 03/27 21:12 Order name: Procalcitonin cp 03/27 21:12 Order name: Lactate; Complete Time: 22:54 cp 03/27 21:12 Order name: Blood Culture Adult (2) cp 03/27 21:13 Order name: Basic Metabolic Panel; Complete Time: 22:54 EDMS 03/27 22:55 Interpretation: Normal except: K 3.2; GLUC 167; BUN 22; GFR 55; CA 8.1. cp 03/27 21:13 Order name: COVID-19 cp 03/27 21:13 Order name: Flu cp 03/27 21:13 Order name: Strep cp 03/27 23:52 Order name: CBC with Automated Diff EDMS 03/27 23:52 Order name: CBC with Automated Diff EDMS 03/27 23:52 Order name: Comprehensive Metabolic Panel EDMS 03/27 23:52 Order name: Comprehensive Metabolic Panel EDMS 03/27 23:52 Order name: Lactate EDMS 03/27 23:52 Order name: Lactate EDMS 03/27 23:52 Order name: Lipid Profile EDMS 03/27 23:52 Order name: Lipid Profile EDMS 03/27 23:52 Order name: Magnesium EDMS 03/27 23:52 Order name: Magnesium EDMS 03/27 23:52 Order name: NT PRO-BNP EDMS 03/27 23:52 Order name: NT PRO-BNP EDMS 03/27 23:52 Order name: Phosphorus EDMS 03/27 23:52 Order name: Phosphorus EDMS 03/27 21:12 Order name: XRAY Chest (1 view) cp 03/27 21:12 Order name: EKG; Complete Time: 21:14 cp 03/27 21:12 Order name: Cardiac monitoring; Complete Time: 22:23 cp 03/27 21:12 Order name: EKG - Nurse/Tech; Complete Time: 22:23 cp 03/27 21:12 Order name: IV Saline Lock; Complete Time: 22:23 cp 03/27 21:12 Order name: Labs collected and sent; Complete Time: 22:23 cp 03/27 21:12 Order name: O2 Per Protocol; Complete Time: 21:29 cp 03/27 21:12 Order name: O2 Sat Monitoring; Complete Time: 21:29 cp 03/27 21:13 Order name: Droplet/Contact Precautions; Complete Time: 22:23 cp 03/27 22:57 Order name: Vital Signs: please update to include temp; Complete Time: 23:06 cp 03/27 23:52 Order name: Heart Healthy EDMS 03/27 23:52 Order name: Protime (+INR) EDMS 03/27 23:52 Order name: Protime (+INR) EDMS 03/27 23:52 Order name: PTT, Activated Partial Thromb EDMS 03/27 23:52 Order name: PTT, Activated Partial Thromb EDMS Administered Medications: 21:47 Drug: NS 0.9% 1000 ml Route: IV; Rate: 1 bolus; Site: right antecubital; ao 03/28 00:00 Follow up: IV Status: Completed infusion; IV Intake: 1500ml ao 03/27 22:45 Drug: Zithromax 500 mg Route: IVPB; Infused Over: 1 hrs; Site: right forearm; ao 03/28 00:28 Follow up: IV Status: Completed infusion ao 03/27 22:50 Drug: Rocephin 1 grams Route: IV; Rate: calculated rate; Site: right forearm; ao 23:00 Follow up: IV Status: Completed infusion; IV Intake: 10ml ao 23:09 Drug: SOLU-Medrol 80 mg Route: IVP; Site: right forearm; ao 03/28 00:27 Follow up: Response: No adverse reaction ao 03/27 23:36 Drug: Lovenox 1 mg/kg {Note: 92.9mg.} Route: Sub-Q; Site: left lower abdomen; ll1 03/28 00:27 Follow up: Response: No adverse reaction ao 03/27 23:37 Drug: Potassium Effervescent Tablet 50 mEq Route: PO; ll1 03/28 00:27 Follow up: Response: No adverse reaction ao 03/27 23:38 Drug: Aspirin Chewable Tablet 324 mg Route: PO; ll1 03/28 00:27 Follow up: Response: No adverse reaction ao 00:27 Follow up: Response: No adverse reaction ao Disposition: 03/27/20 23:02 Hospitalization ordered by Karian Kemp for Inpatient Admission. Preliminary diagnosis is Pneumonia due to other specified infectious organisms. - Bed requested for Telemetry/MedSurg (Inpatient). - Status is Inpatient Admission. ao - Condition is Fair. - Problem is new. - Symptoms have worsened. Addendum: 03/29/2020 04:31 Co-signature as Attending Physician, Frank Flower MD I agree with the assessment and t w4 plan of care. Signatures: Dispatcher [employer] EDValerie Melvin RN RN Leonel Musa PA PA cp Ortiz, Alex, RN RN ao Wadley, Terrence, MD MD tw4 Janae Oakes RN RN ll1 Corrections: (The following items were deleted from the chart) 03/27 22:55 22:54 Normal except: K 3.2; GLUC 167; BUN 22; GFR 55. cp cp 23:27 23:02 Hospitalization Ordered by Karina Kemp MD for Inpatient Admission. Preliminary mw diagnosis is Pneumonia due to other specified infectious organisms. Bed requested for Telemetry/MedSurg (Inpatient). Status is Inpatient Admission. Condition is Fair. Problem is new. Symptoms have worsened. cp 03/28 00:54 08 23:27 03/27/2020 23:02 Hospitalization Ordered by Karina Kemp MD for Inpatient ao Admission. Preliminary diagnosis is Pneumonia due to other specified infectious organisms. Bed requested for Telemetry/MedSurg (Inpatient). Status is Inpatient Admission. Condition is Fair. Problem is new. Symptoms have worsened. mw
[2020-03-27] MEDS ORDERED: ASPIRIN 81 MG CHEWABLE TABLET ONE (23:33)
[2020-03-27] MEDS ORDERED: POTASSIUM 25 MEQ EFFERV TAB ONE (23:33)
[2020-03-27] MEDS ORDERED: ENOXAPARIN 100 MG/ML SYR SQ ONE (23:34)
[2020-03-27] MEDS ORDERED: ONDANSETRON 4 MG/2 ML VIAL IV PRN (23:49)
[2020-03-27] MEDS ORDERED: ACETAMINOPHEN 500 MG TAB PO PRN (23:49)
[2020-03-28] MEDS: NA CHLORIDE 0.9% 1,000 ML IV SCH ×3 (01:45→20:07)
[2020-03-28 02:33] VITALS: BMI 29.4
[2020-03-28 07:17] LABS: Albumin 2.9 g/dL (3.4-5.0); Bilirubin Total 0.5 mg/dL (0.2-1.0); Magnesium 2.1 mg/dL (1.8-2.4); Phosphorus 3.4 mg/dL (2.5-4.9); Potassium 3.8 mmol/L (3.5-5.1); Protein, Total 6.9 g/dL (6.4-8.2)
[2020-03-28 07:18] LABS: Protime INR 1.17
[2020-03-28 07:22] LABS: Absolute Lymphocytes (CBC) 0.5 K/uL (0.7-4.9); Basophils % 0.1 % (0-1.3); Hematocrit 36.2 % (39.6-49.0); Lymphocytes % 13.7 % (15.3-44.8); MPV 9.3 fL (7.6-11.3); RBC Red Blood Cell Count 4.42 M/uL (4.33-5.43)
[2020-03-28] MEDS ORDERED: POTASSIUM CL SA 10 MEQ TAB PO ONE (08:00)
[2020-03-28] MEDS ORDERED: D50W 25 GM/50 ML SYRINGE/VIAL IV PRN (08:02)
[2020-03-28] MEDS ORDERED: GLUCAGON 1 MG/VIAL IM PRN (08:02)
--- NOTE | 2020-03-28 08:12 | RAD REPORT ---
EXAM DESCRIPTION: Kell Single View03/27/2020 9:47 pm CLINICAL HISTORY: Chest pain COMPARISON: 2017 FINDINGS: Right upper lobe opacity. Remainder of the lungs appear clear of acute infiltrate The heart is borderline enlarged IMPRESSION: Right upper lobe opacity likely pneumonia
[2020-03-28] MEDS: CEFTRIAXONE/SWI 1gm 1 GM/10 ML SYR IVP SCH ×2 (08:39→20:08)
[2020-03-28] MEDS: INSULIN -REGULAR HUMAN 50 UNIT/0.5 ML ML SQ SCH ×4 (08:40→21:53)
[2020-03-28] MEDS ORDERED: dexAMETHasone 10 MG/ML VIAL IV SCH (09:00)
[2020-03-28] MEDS ORDERED: CEFTRIAXONE 1 GM/NS 50 ML 1 GM/50 ML BAG IV SCH (09:00)
[2020-03-28] MEDS: AZITHROMYCIN IV 500 MG in NA CHLORIDE 0.9% 250 ML IVPB SCH (09:56)
[2020-03-28] MEDS: ENOXAPARIN 40 MG/0.4 ML SQ SCH (17:02)
[2020-03-28] MEDS: dexAMETHasone 4 MG/ML VIAL IV SCH (17:02)
--- NOTE | 2020-03-28 18:20 | P.HP ---
Certification for Inpatient Patient admitted to: Inpatient With expected LOS: >2 Midnights Patient will require the following post-hospital care: None Practitioner: I am a practitioner with admitting privileges, knowledge of patient current condition, hospital course, and medical plan of care. Services: Services provided to patient in accordance with Admission requirements found in Title 42 Section 412.3 of the Code of Federal Regulations Patient History Date of Service: 03/28/20 Reason for admission: COVID-19 pneumonia History of Present Illness: Patient is a 69-year-old gentleman who came into the hospital with difficulty breathing. Patient was found have bilateral infiltrates. Patient has been short of breath with pleuritic chest pain, and patient has also been having some nausea along with vomiting. Patient has gradually got worse so patient came into the hospital for further evaluation. In the emergency room chest x-ray showed bilateral pneumonia. Patient be admitted for further evaluation. Patient was hypoxic requiring 6 L of oxygen. Monitor oxygenation very closely. Continue monitoring inflammatory markers as well. Patient will be admitted for further evaluation. Allergies No Known Allergies Allergy (Verified 06/12/12 05:49) Home Medications: Insulin 70/30 NPH/Reg Human [Novolin 70/30*] 40 unit SQ DAILY AT SUPPER 03/28/20 Insulin 70/30 NPH/Reg Human [Novolin 70/30*] 60 unit SQ DAILY WITH BREAKFAST 03/28/20 Metformin HCl [Glucophage] 500 mg PO DAILY 03/28/20 - Past Medical/Surgical History Has patient received pneumonia vaccine in the past: Yes Diabetic: Yes -: IDDM -: CHOLECYSTECTOMY - Family History Father Family History: Reviewed- Non-Contributory - Social History Smoking Status: Former smoker Alcohol use: Yes CD- Drugs: No Caffeine use: Yes Place of Residence: Home Review of Systems 10-point ROS is otherwise unremarkable Physical Examination - Vital Signs Temperature: 98.6 F Blood Pressure: 133/84 Pulse: 100 Respirations: 19 Pulse Ox (%): 96 - Physical Exam General: Alert, In no apparent distress, Oriented x3 HEENT: Atraumatic, PERRLA, Mucous membr. moist/pink, EOMI, Sclerae nonicteric Neck: Supple, 2+ carotid pulse no bruit, No LAD, Without JVD or thyroid abnormality Respiratory: Diminished, Crackles/rales, Expiratory wheezes Cardiovascular: Regular rate/rhythm, Normal S1 S2, No murmurs Gastrointestinal: Normal bowel sounds, Soft and benign, Non-distended, No tend erness Musculoskeletal: No clubbing, No swelling, No tenderness Integumentary: No rashes Neurological: Normal gait, Normal speech, Normal strength at 5/5 x4 extr, Normal tone, Sensation intact, Cranial nerves 3-12 intact, Normal affect Lymphatics: No axilla or inguinal lymphadenopathy - Studies Laboratory Data (last 24 hrs) 03/27/20 21:48: PT 13.7 H, INR 1.16 03/27/20 21:48: WBC 5.4, Hgb 13.2 L, Hct 38.4 L, Plt Count 149 L 03/27/20 21:48: Sodium 137, Potassium 3.2 L, BUN 22 H, Creatinine 1.30, Glucose 167 H, Magnesium 2.0, Total Bilirubin 0.7, AST 27, ALT 33, Alkaline Phosphatase 120 H Microbiology Data (last 24 hrs): 03/27/20 22:00 Nasopharnyx Influenza Type A Antigen Screen - Final 03/27/20 22:00 Nasopharnyx Influenza Type B Antigen Screen - Final 03/27/20 22:00 Throat Group A Streptococcus Rapid Screen - Final Assessment & Plan - Problems (Diagnosis) (1) Pneumonia due to COVID-19 virus Current Visit: Yes Status: Acute (2) Hypoxemia Current Visit: Yes Status: Acute (3) Morbid obesity Current Visit: Yes Status: Acute (4) Type 2 diabetes mellitus Current Visit: Yes Status: Acute - Plan 1. Continue with IV antibiotics 2. Antipyretics 3. Repeat chest x-ray if symptoms are progressively worsening 4. O2 per protocol 5. Pulmonary consultation if symptoms worsen 6. Continue with albuterol inhaler therapy; IV dexamethasone; zinc and vitamin-C 7. O2 per protocol 8. Monitor LFTs 9. Repeat labs including D-dimer, ferritin, and CRP and LFTs 10. GI and DVT prophylaxis Discharge Plan: Home Plan to discharge in: Greater than 2 days - Advance Directives Does patient have a Living Will: No Does patient have a Durable POA for Healthcare: No - Code Status/Comfort Care Code Status Assessed: Yes Code Status: Full Code Critical Care: No Time Spent Managing PTS Care (In Minutes): 44
[2020-03-29] MEDS: dexAMETHasone 4 MG/ML VIAL IV SCH ×3 (00:21→16:56)
[2020-03-29] MEDS ORDERED: FUROSEMIDE 40 MG/4 ML VIAL IV ONE (01:18)
[2020-03-29] MEDS ORDERED: METOPROLOL TARTRATE 5 MG/5 ML INJ IV STA (01:19)
[2020-03-29] MEDS ORDERED: ALBUTEROL INHALER 60 PUFF/8 GM IH PRN (01:19)
[2020-03-29] MEDS: BENZONATATE 100 MG CAP PO PRN ×3 (01:39→20:38)
[2020-03-29] MEDS: INSULIN -REGULAR HUMAN 50 UNIT/0.5 ML ML SQ SCH ×4 (08:05→20:38)
[2020-03-29] MEDS: CEFTRIAXONE/SWI 1gm 1 GM/10 ML SYR IVP SCH ×2 (08:05→20:38)
[2020-03-29] MEDS: GUAIFENESIN/CODEINE 5ML UCUP PO PRN ×2 (08:11→20:38)
[2020-03-29] MEDS ORDERED: METOPROLOL TAR 25 MG TAB PO ONE (09:40)
[2020-03-29] MEDS ORDERED: D50W 25 GM/50 ML SYRINGE/VIAL IV PRN (09:41)
[2020-03-29] MEDS ORDERED: GLUCAGON 1 MG/VIAL IM PRN (09:41)
[2020-03-29] MEDS: AZITHROMYCIN IV 500 MG in NA CHLORIDE 0.9% 250 ML IVPB SCH (09:44)
[2020-03-29] MEDS: FUROSEMIDE 20 MG/ 2ML VIAL IV SCH ×2 (12:23→16:57)
[2020-03-29] MEDS: ENOXAPARIN 40 MG/0.4 ML SQ SCH (16:56)
[2020-03-29] MEDS: INSULIN 70/30 100 UNITS/ML SQ SCH (16:56)
[2020-03-29] MEDS: METOPROLOL TAR 25 MG TAB PO SCH (16:59)
[2020-03-30] MEDS: dexAMETHasone 4 MG/ML VIAL IV SCH ×3 (00:04→16:24)
[2020-03-30] MEDS: FUROSEMIDE 20 MG/ 2ML VIAL IV SCH ×3 (00:04→16:24)
[2020-03-30 04:19] LABS: Potassium 3.3 mmol/L (3.5-5.1)
[2020-03-30] MEDS ORDERED: POTASSIUM 25 MEQ EFFERV TAB PO ONE (05:24)
[2020-03-30] MEDS ORDERED: POTASSIUM CL SA 10 MEQ TAB PO ONE ×2 (05:42→12:33)
[2020-03-30] MEDS: METOPROLOL TAR 25 MG TAB PO SCH ×2 (05:46→16:25)
--- NOTE | 2020-03-30 07:05 | P.PN ---
Subjective Date of Service: 03/29/20 patient had an episode of tachyarrhythmia last night. He became really short of breath and could not breathe. We gave him diuretics and we also gave him on a low dose of IV Lopressor. He went to restroom x 3, but unfortunately he did not urinate into a urinal. Unable to quantify. He does state he feels much better this morning. Continue with low-dose diuretics and IV Lopressor. C reactive protein was elevated on arrival and will continue to monitor gradually. He is not severely hypoxic but he does have episodes where he is unable to breathe. I believe sending him home at this time with just lead to readmission. He pretty much stays in bed and does very little exertion and remains short of breath at times. Going home and exerting himself especially with him being poorly conditioned at this time would probably lead to recurrent respiratory distress & recurrent hospitalization Review of Systems 10-point ROS is otherwise unremarkable Physical Examination - Vital Signs Temperature: 98.8 F Blood Pressure: 134/80 Pulse: 72 Respirations: 20 Pulse Ox (%): 96 - Physical Exam General: Alert, In no apparent distress, Oriented x3 Respiratory: Clear to auscultation bilaterally, Normal air movement Cardiovascular: Regular rate/rhythm, Normal S1 S2 Gastrointestinal: Normal bowel sounds, Soft and benign, Non-distended, No tenderness, No rebound, No guarding Musculoskeletal: No tenderness Integumentary: No rashes Neurological: Normal speech, Normal tone, Normal affect Lymphatics: No axilla or inguinal lymphadenopathy - Studies Medications List Reviewed: Yes Assessment & Plan - Problems (Diagnosis) (1) Pneumonia due to COVID-19 virus Current Visit: Yes Status: Acute (2) Hypoxemia Current Visit: Yes Status: Acute (3) Morbid obesity Current Visit: Yes Status: Acute (4) Type 2 diabetes mellitus Current Visit: Yes Status: Acute - Plan 1. Continue with IV antibiotics 2. Antipyretics ; these were scheduled and I will make him p.r.n. at this time 3. Repeat chest x-ray if symptoms are worsening 4. O2 per protocol; currently not using anything regularly unless these were very tachypneic. 5. Pulmonary consultation if symptoms worsen 6. Continue with albuterol inhaler therapy; IV dexamethasone; zinc and vitamin-C 7. O2 per protocol 8. START LOW-DOSE BETA-PHUONG FOR BLOOD PRESSURE CONTROL; MAY BENEFIT FROM ECHOCARDIOGRAM 9. Repeat labs including D-dimer, ferritin, and CRP and LDH 10. GI and DVT prophylaxis Discharge Plan: Home Plan to discharge in: 24 Hours - Advance Directives Does patient have a Living Will: No Does patient have a Durable POA for Healthcare: No - Code Status/Comfort Care Code Status: Full Code Critical Care: No Time Spent Managing PTS Care (In Minutes): 40
[2020-03-30] MEDS: INSULIN -REGULAR HUMAN 50 UNIT/0.5 ML ML SQ SCH ×3 (07:30→16:24)
[2020-03-30] MEDS ORDERED: INSULIN 70/30 100 UNITS/ML SQ SCH (08:00)
[2020-03-30] MEDS: GUAIFENESIN/CODEINE 5ML UCUP PO PRN (08:53)
[2020-03-30] MEDS: BENZONATATE 100 MG CAP PO PRN (08:54)
[2020-03-30] MEDS: CEFTRIAXONE/SWI 1gm 1 GM/10 ML SYR IVP SCH (08:56)
[2020-03-30] MEDS: AZITHROMYCIN IV 500 MG in NA CHLORIDE 0.9% 250 ML IVPB SCH (09:00)
--- NOTE | 2020-03-30 09:09 | P.DS ---
Admission Date: 03/28/20 Discharge Date: 03/30/20 Disposition: ROUTINE DISCHARGE Discharge Condition: GOOD Reason for Admission: COVID-19 pneumonia Hospital Course: Patient is a 69-year-old male with uncontrolled type 2 diabetes who presented to the hospital with acute hypoxemic respiratory failure secondary to cor bed pneumonia. Patient did well throughout this hospitalization except for persistent cough. He has been entirely weaned off oxygen. He will be discharged today. Vital Signs/Physical Exam: Temp Pulse Resp BP Pulse Ox 98.8 F 92 H 20 133/81 97 03/30/20 08:00 03/30/20 08:54 03/30/20 08:00 03/30/20 08:54 03/30/20 08:00 General: In no apparent distress, Cooperative HEENT: Atraumatic, Normocephalic, EOMI Respiratory: Clear to auscultation bilaterally, Normal air movement Cardiovascular: Normal pulses, Regular rate/rhythm, Normal S1 S2 Musculoskeletal: No clubbing, No swelling, No contractures, No erythema, No tenderness, No warmth Neurological: Normal speech, Sensation intact, Normal affect Laboratory Data at Discharge: WBC 3.8 K/uL (4.3-10.9) L D 03/28/20 06:45 Hgb 12.4 g/dL (13.6-17.9) L 03/28/20 06:45 Hct 36.2 % (39.6-49.0) L 03/28/20 06:45 Plt Count 147 K/uL (152-406) L 03/28/20 06:45 PT 13.8 SECONDS (9.5-12.5) H 03/28/20 06:45 INR 1.17 03/28/20 06:45 APTT 37.3 SECONDS (24.3-36.9) H 03/28/20 06:45 Sodium 140 mmol/L (136-145) 03/30/20 03:20 Potassium 3.3 mmol/L (3.5-5.1) L 03/30/20 03:20 BUN 30 mg/dL (7-18) H 03/30/20 03:20 Creatinine 1.29 mg/dL (0.55-1.3) 03/30/20 03:20 Glucose 122 mg/dL (74-106) H 03/30/20 03:20 Phosphorus 3.4 mg/dL (2.5-4.9) 03/28/20 06:45 Magnesium 2.1 mg/dL (1.8-2.4) 03/28/20 06:45 Total Bilirubin 0.5 mg/dL (0.2-1.0) 03/28/20 06:45 AST 26 U/L (15-37) 03/28/20 06:45 ALT 29 U/L (12-78) 03/28/20 06:45 Alkaline Phosphatase 105 U/L (45-117) 03/28/20 06:45 Triglycerides 77 mg/dL (<150) 03/28/20 06:45 Cholesterol 129 mg/dL (<200) 03/28/20 06:45 HDL Cholesterol 50 mg/dL (40-60) 03/28/20 06:45 Cholesterol/HDL Ratio 2.58 03/28/20 06:45 Home Medications: Insulin 70/30 NPH/Reg Human [Novolin 70/30*] 40 unit SQ DAILY AT SUPPER 03/28/20 Insulin 70/30 NPH/Reg Human [Novolin 70/30*] 60 unit SQ DAILY WITH BREAKFAST 03/28/20 Metformin HCl [Glucophage*] 500 mg PO DAILY 03/28/20 Ascorbic Acid 500 mg PO DAILY 7 Days #7 tablet 03/30/20 Benzonatate [Tessalon Perle*] 100 mg PO TID PRN #21 cap 03/30/20 Metoprolol Tartrate [Lopressor*] 25 mg PO BID 6AM 6PM #60 tab 03/30/20 Zinc Sulfate [Zinc Sulfate*] 220 mg PO BID #14 cap 03/30/20 predniSONE [Deltasone] 20 mg PO BID #14 tab 03/30/20 New Medications: Ascorbic Acid 500 mg PO DAILY 7 Days #7 tablet Metoprolol Tartrate [Lopressor*] 25 mg PO BID 6AM 6PM #60 tab predniSONE [Deltasone] 20 mg PO BID #14 tab Benzonatate [Tessalon Perle*] 100 mg PO TID PRN #21 cap PRN Reason: Cough Zinc Sulfate [Zinc Sulfate*] 220 mg PO BID #14 cap
[2020-03-30 15:28] VITALS: O2SAT 94
[2020-03-30] MEDS: INSULIN 70/30 100 UNITS/ML SQ SCH (16:25)
[2020-03-30] MEDS: ENOXAPARIN 40 MG/0.4 ML SQ SCH (16:25)
[2020-03-30 16:26] VITALS: BP 137/81
[2020-03-30 16:37] VITALS: TEMP 99
== END 2020-03-30 17:49 | disposition home or self-care (01) | DRG 177 ==
LOC: ER 20:31 → 4TH 03-28 00:18
PROVIDERS: ADMIT Hospitalist; ATTEND Internal Medicine
DX: U07.1 COVID-19 (principal); J12.89 Other viral pneumonia; J96.01 Acute respiratory failure with hypoxia; E11.9 Type 2 diabetes mellitus without complications; R00.0 Tachycardia, unspecified; E66.01 Morbid (severe) obesity due to excess calories; Z68.29 Body mass index [BMI] 29.0-29.9, adult; Z79.4 Long term (current) use of insulin; Z90.49 Acquired absence of other specified parts of digestive tract
CPT/HCPCS: 36415; 71045; 80048; 80053; 80061; 80076; 82947; 83605; 83735; 83880; 84100; 84132; 84145; 84484; 85025; 85379; 85610; 85730; 86140; 87040; 87081; 87804; 93005; 94760; 96361; 96365; 96366; 96372; 96375; 99285; J0456; J0696; J1100; J1650; J1815; J1940; J2930; J7030; J7050

== ENCOUNTER 2020-06-25 06:39 | Inpatient (IN) | payer OTHER ==
--- OUTSIDE RECORDS SUMMARY | 2020-06-25 06:41 | XMS REPORT | Clinical Summary ---
:1950 Author Organization [employer] Address [address] [place] [address] Care Team Providers Name Role Phone Shyam [...] Active Problems Problem Noted Date Phlegmon 09/20/2018 Encounters Date Type Specialty Care Team Description 03/28/2020 Lab Requisition Lab after 06/25/2019 Social History Tobacco Use Types Packs/Day Years Used Date Never Assessed Sex Assigned at Date Recorded Not on file Last Filed Vital Signs Not on file Plan of Treatment Not on file Procedures Procedure Name Priority Date/Time Associated Diagnosis Comme nts SARS-COV2/RT-PCR Routine 03/27/2020 10:00 PM Resu lts for this ([facility]) CDT procedure are in the results section. after 06/25/2019 Results SARS-CoV2/RT-PCR ([facility]) (03/27/2020 10:00 PM CDT) SARS-COV2/RT-PCR Positive ([facility]) Not Detected, Mostro Negative, See [facility] external report [facility] for linked test SARS-COV-2 [facility] [employer] PERFORMING LAB [facility] Specimen Other - Nasopharyngeal wall structure (b richrad structure) Narrative Performed At Results are for the detection of SARS-CoV-2 [facility] RNA. The SARS-CoV-2 RNA is generally detectable in nasopharyngeal swab specimens during the acute phase of infection. Positive results are indicative of active infection with SARS-CoV-2; clinical correlation with patient history and other diagnostic information is necessary to determine patient infection status. Positive results do not rule out bacterial infection or co-infection with other viruses. The agent detected may not be the definite cause of disease. The limit of detection for this assay is 250 copies/mL. This SARS CoV-2 test is a rapid, real-time RT-PCR test intended for the qualitative detection of nucleic acid from SARS-CoV-2 in a nasopharyngeal swab specimen collected from individuals suspected of COVID-19 by their healthcare provider. This test has not been Food and Drug Administration (FDA) cleared or approved and has been authorized by FDA under an Emergency Use Authorization (EUA). This EUA will be effective until the declaration that circumstances exist justifying the authorization of the emergency use of in vitro diagnostic tests for detection and/or diagnosis of COVID-19 is terminated under Section 564(b)(2) of the Act or the EUA is revoked under Section 564(g) of the Act. Fact Sheet for Healthcare Providers: https://www.[employer]/Documents/Xpert%20Xpr ess%20SARS%20CoV-2/Fact%20Sheets/3023802%20S ARS-COV-2%20HEALTHCARE%20PROVIDERS%20FACT%20S HEET.pdf Fact Sheet for Healthcare Patients: https://www.[employer]/Documents/Xpert%20Xpr ess%20SARS%20CoV-2/Fact%20Sheets/302-3801%20S ARS-COV-2%20PATIENT%20FACT%20SHEET.pdf Performing Laboratory: [address] [place] [address] Performing Organization Address City/State/Zipcode Phone Number [address] [address] CENTER after 06/25/2019 Advance Directives For more information, please contact: [phone] Code Status Date Activated Date Inactivated Comments Full Code 09/20/2018 2:46 AM This code status was determined by: Patient
--- OUTSIDE RECORDS SUMMARY | 2020-06-25 06:42 | XMS REPORT | Continuity of Care Document ---
:1950 Author Organization [facility] t Address [address] [place] [address] Care Team Providers Name Role Phone Shyam Hernandez Primary Care Physician TENZIN CHAPARRO Attending Clinician Unavailable TENZIN CHAPARRO Admitting Clinician Unavailable Payers Payer Name Policy Type Policy Effective Date Expiration Date Sour ce Number MEDICAREMEDICARE PART [id number] 2017 I [facility] [id number] 2017-P 00:00[facility] Problems Condition Condition Condition Status Onset Resolution Last Treating Co mments Source Name Details Category Date Date Treatment Clinician Date Phlegmon Phlegmon Disease [facility] Allergies, Adverse Reactions, Alerts This patient has no known allergies or adverse reactions. Social History Social Habit Start Date Stop Date Quantity Comments Source Sex Assigned At [facility] Medications Ordered Filled Start Stop Current Ordering Indication Dosage Frequency Signature Comments Components Source Medication Medication Date Date Medication? Clinician (SIG) Name Name metFORMIN 2018- Yes 1000mg Take 1,[address] [facility] (GLUCOPHAGE 1-28 mg by [facility] - ) 1000 MG 16:45: mouth 2 Medic al tablet 34 (two) Center times daily with breakfast and lunch. Magic Yes 5mL Take [address] [facility] Mouthwash 1-28 by mouth [facility] - WITH 00:00: every 6 Medical steroid 00 (six) Center oral hours. suspension HUMULIN 2017-08 Yes 30U Inject [facility] 70/30 U-100 2-18 30-60 [facility] - INSULIN 100 00:00: Units Medic al unit/mL 00 [facility] (70-30) usly 2 injection (two) times daily with breakfast and dinner Inject 60 units after breakfast Inject 30 units after dinner. Procedures Procedure Date / Time Performed Performing Clinician Sourc e SARS-COV2/RT-PCR ([facility] 2020-03-27 22:00:00 [facility] Results Test Description Test Time Test Comments Results Result Comments Source SARS-CoV2/RT-PCR ([facility] & Ref Labs) 2020-03-28 14:16:00 Test Item Value Reference Range Interpretation Comme nts SARS-COV2/RT-PCR (test code = [place] [address]-0) Negative, See external report for linked test SARS-COV-2 PERFORMING LAB [facility] (test code = 88884-2) [facility] (test code = MAXWELL) Results are for the detection of SARS-CoV-2 RNA. The SARS-CoV-2 RNA is generally detectable [...] of the Act. Fact Sheet for Healthcare Providers:https://www.Meetingsbooker.com/Documents/Xpert%20Xpre ss%20SARS%20CoV-2/Fact%20She ets/302-3802%61TOQU-VAI-8%20 HEALTHCARE%20PROVIDERS%20FAC T%20SHEET.pdf Fact Sheet for Healthcare Patients:https://www.Ac[employer]iv/Documents/Xpert%20Xpres s%20SARS%20CoV-2/Fact%20Shee ts/302-3801%52IHFH-TDD-7%20P ATIENT%20FACT%20SHEET.pdf Performing Laboratory:[facility] [place] [address] Lab Interpretation (test code Abnormal = 72395-9) [facility])2020-03-28 14:16:00 Test Item Value Reference Range Interpretation Comments SARS-COV2/RT-PCR (test code Positive Not Detected, Negative, AA = [id number]) See external report for linked test SARS-COV-2 PERFORMING LAB [facility] (test code = 0716056) Results are for the detection of SARS-CoV-2 RNA. The SARS-CoV-2 RNA is generally detectable [...] of detection for this assay is 250 copies/mL.This SARS CoV-2 test is a rapid, ubmb-uwtkZK-GQP test intended for the qualitative detection of nucleic acid from SARS-CoV-2 in a nasopharyngeal swab specimen collected from individuals suspected of COVID-19 by their healthcare provider.This test has not been Food and Drug Administration (FDA) cleared or approved and has been authorized by FDA under an Emergency Use Authorization (EUA). This EUA will be effective until the declaration that ci rcumstances exist justifying the authorization of the emergency use of in vitro diagnostic tests fordetection and/or diagnosis of COVID-19 is terminated under Section 564(b)(2) of the Act or the EUA is revoked under Section 564(g) of the Act.Fact Sheet for Healthcare Providers:https://www.[employer]/ Documents/Xpert%20Xpress%20SARS%20CoV-2/Fact%20Sheets/302-3802%05RAUZ-PVB-3%20HE ALTHCARE%20PROVIDERS%20FACT%20SHEET.pdfFact Sheet for Healthcare Patients:https://www.[employer]/Documents/Xpert%20Xpress %20SARS%20CoV-2/Fact%20Sheets/302-3801%62NMUD-OQY-7%20PATIENT%20FACT%20SHEET.pdf Performing Laboratory:[address] [address]HYZB-QCMFKLM [id number] 14:00:00 Test Item Value Reference Range Interpretation Comments POC-GLUCOSE METER 172 mg/dL 70-110 H TESTED AT [place] [address] ([facility]) (test code = [facility] Mati [facility] 1538) [id number] POCT-GLUCOSE [id number] 08:19:00 Test Item Value Reference Range Interpretation Comments POC-GLUCOSE METER 145 mg/dL 70-110 H TESTED AT [place] [address] ([facility]) (test code = [facility] 1538) [address] POCT-GLUCOSE [id number] 21:45:00 Test Item Value Reference Range Interpretation Comments POC-GLUCOSE METER 260 mg/dL 70-110 H TESTED AT [place] [address] ([facility]) (test code = [facility] 1538) [address] POCT-GLUCOSE [id number] 16:53:00 Test Item Value Reference Range Interpretation Comments POC-GLUCOSE METER 149 mg/dL 70-110 H TESTED AT [place] [address] ([facility]) (test code = [facility] 1538) [id number] POCT-GLUCOSE [id number] 12:19:00 Test Item Value Reference Range Interpretation Comments POC-GLUCOSE METER 141 mg/dL 70-110 H TESTED AT [place] [address] ([facility]) (test code = [facility] 1538) [address] POCT-GLUCOSE [id number] 07:38:00 Test Item Value Reference Range Interpretation Comments POC-GLUCOSE METER 127 mg/dL 70-110 H TESTED AT [place] [address] ([facility]) (test code = [facility] 7218) [address] BASIC METABOLIC [id number] 04:59:00 Test Item Value Reference Range Interpretation [...] PATIEN TS. CBC W/PLT COUNT & AUTO [id number] 04:28:00 Test Item Value Reference Range Interpretation [...] PERCENT (BEAKER) (test code = 2801) POCT-GLUCOSE [id number] 22:48:00 Test Item Value Reference Range Interpretation Comments POC-GLUCOSE METER 133 mg/dL 70-110 H [facility] [place] [address] [facility] (test code = ONIEL Thorne [facility] 1538) [id number] POCT-GLUCOSE [id number] 18:05:00 Test Item Value Reference Range Interpretation Comments POC-GLUCOSE METER 167 mg/dL 70-110 H TESTED AT [place] [address] [facility] (test code = ONIEL Th[place] [facility] 1538) [id number] POCT-GLUCOSE [id number] 11:51:00 Test Item Value Reference Range Interpretation Comments POC-GLUCOSE METER 142 mg/dL 70-110 H TESTED AT [place] [address] ([facility]) (test code = ONIEL Thorne [facility] 1538) [address]53 POCT-GLUCOSE [id number] 07:48:00 Test Item Value Reference Range Interpretation Comments POC-GLUCOSE METER 138 mg/dL 70-110 H TESTED AT [facility] 6720 (BEAKER) (test code = [place] 1538) [id number] BASIC METABOLIC [id number] 06:56:00 Test Item Value Reference Range Interpretation [...] APPLICABLE FOR DIALYSIS PATIEN TS. BASIC METABOLIC [id number] 06:50:00 Test Item Value Reference Range Interpretation [...] PATIEN TS. CBC W/PLT COUNT & AUTO [id number] 06:34:00 Test Item Value Reference Range Interpretation [...] = 2801) CBC W/PLT COUNT & AUTO [id number] 06:33:00 Test Item Value Reference Range Interpretation [...] ABSOLUTE COUNT 0.02 K/ L 0.04-0.54 L ([facility]) (test code = 416) BASOPHILS ABSOLUTE COUNT ([facility]) 0.02 K/ L 0.01-0.08 (test code = 417) IMMATURE GRANULOCYTES-RELATIVE 0 % 0-1 PERCENT ([facility]) (test code = 2801) POCT-GLUCOSE [id number] 21:02:00 Test Item Value Reference Range Interpretation Comments POC-GLUCOSE METER 232 mg/dL 70-110 H TESTED AT [place] [address] ([facility]) (test code = [facility] Mati [facility] 1538) [id number] POCT-GLUCOSE [id number] 17:47:00 Test Item Value Reference Range Interpretation Comments POC-GLUCOSE METER 278 mg/dL 70-110 H TESTED AT [place] [address] ([facility]) (test code = [facility] Mati [facility] 1538) [id number] POCT-GLUCOSE [id number] 13:08:00 Test Item Value Reference Range Interpretation Comments POC-GLUCOSE METER 307 mg/dL 70-110 H TESTED AT [place] [address] ([facility]) (test code = [facility] Mati [facility] 1538) [id number] POCT-GLUCOSE [id number] 09:05:00 Test Item Value Reference Range Interpretation Comments POC-GLUCOSE METER 274 mg/dL 70-110 H TESTED AT [place] [address] ([facility]) (test code = [facility] Mati [facility] 1538) [id number]
[2020-06-25] MEDS ORDERED: LEVALBUTEROL 1.25 MG/3 ML NEB ONE (07:07)
[2020-06-25 07:14] LABS: Absolute Lymphocytes (CBC) 2.8 K/uL (0.7-4.9); Basophils % 0.5 % (0-1.3); Hematocrit 45.2 % (39.6-49.0); Lymphocytes % 23.2 % (15.3-44.8); MPV 9.5 fL (7.6-11.3); RBC Red Blood Cell Count 5.35 M/uL (4.33-5.43)
[2020-06-25] MEDS ORDERED: FUROSEMIDE 40 MG/4 ML VIAL ONE (07:27)
[2020-06-25 07:31] LABS: Magnesium 2.2 mg/dL (1.8-2.4); Potassium 3.2 mmol/L (3.5-5.1); Troponin (Emerg Dept Use Only) 0.06 ng/mL (0.0-0.045)
--- NOTE | 2020-06-25 09:05 | RAD REPORT ---
EXAM DESCRIPTION: RAD - Chest Single View - 06/25/2020 7:51 am CLINICAL HISTORY: DYSPNEA COMPARISON: March 27, 2020 single-view chest TECHNIQUE: AP portable chest image was obtained 06/25/2020 7:51 am . FINDINGS: Lung volumes are slightly reduced. Alveolar opacification present in the mid and lower lef t lung field primarily in a peripheral distribution. Patchy airspace opacification and interstitial o pacification in the lower right lung field. Heart size is normal range. No acute vascular engorgement . No measurable pleural effusion and no pneumothorax. No acute bony abnormality seen. No acute aortic findings suspected. IMPRESSION: Bilateral interstitial and airspace opacification. Findings are primarily peripheral whi ch suggests infiltrate rather than failure or volume overload. Peripheral distribution raises possibility of COVID-19 pneumonia. This can be correlated with history and clinical presentation.
--- NOTE | 2020-06-25 09:07 | ER ---
Nurse's Notes [facility] Name: Sylvain Veronica Age: 69 yrs Sex: Male : 1950 Arrival Date: 06/25/2020 Time: 06:40 Bed 7 Private MD: Diagnosis: Non-ST elevation (NSTEMI) myocardial infarction;Acute pulmonary edema Presentation: 06/25 06:48 Chief complaint: Patient states: Pt reports phlegm and SOB that started about an hour ea ago. Coronavirus screen: shortness of breath, Client presents with at least one sign or symptom that may indicate coronavirus-19. Standard/surgical mask placed on the client. Provider contacted for isolation considerations. Ebola Screen: No symptoms or risks identified at this time. Initial Sepsis Screen: Does the patient meet any 2 criteria? RR > 20 per min. HR > 90 bpm. Does the patient have a suspected source of infection? Yes: Productive cough/pneumonia. Risk Assessment: Do you want to hurt yourself or someone else? Patient reports no desire to harm self or others. Onset of symptoms was June 25, 2020. 06:48 Method Of Arrival: Wheelchair ea 06:48 Acuity: JACKIE 1 bb Triage Assessment: 06:54 General: Appears uncomfortable, Behavior is restless. Pain: Denies pain. Neuro: Level ea of Consciousness is awake, alert, obeys commands, Oriented to person, place, time, situation. Respiratory: Reports shortness of breath cough that is labored breathing Airway is patent Respiratory effort is shallow, Respiratory pattern is tachypnea Onset: The symptoms/episode began/occurred this morning, the patient has moderate shortness of breath. Derm: Skin is clammy, Skin is pale, Skin temperature is cool. Historical: - Allergies: 06:53 No Known Allergies; ea - Home Meds: 06:53 insulin [Active]; ea - PMHx: 06:53 Diabetes - IDDM; ea - PSHx: 06:53 Cholecystectomy; ea - Immunization history:: Adult Immunizations up to date. - Social history:: Smoking status: Patient/guardian denies using tobacco, but has a distant history of tobacco abuse. Screenin:52 Abuse screen: Denies threats or abuse. Nutritional screening: No deficits noted. ea Tuberculosis screening: No symptoms or risk factors identified. Fall Risk None identified. Assessment: 06:53 Reassessment: RT at bedside placing pt on BiPAP. ea 07:10 Reassessment: Dr. Quiñonez at bedside. em 07:10 General: Appears in no apparent distress. comfortable, Behavior is calm, cooperative, em appropriate for age, Denies fever. Pain: Denies pain. Neuro: Level of Consciousness is awake, alert, obeys commands, Oriented to person, place, time, situation, Appropriate for age. Cardiovascular: Capillary refill < 3 seconds Patient's skin is warm and dry. Rhythm is sinus tachycardia. Respiratory: Airway is patent Respiratory effort is even, Respiratory pattern is tachypnea Sputum is blood streaked, Patient placed on BiPAP: Respiratory Rate: 23 Breath sounds with crackles bilaterally. Breath sounds are diminished bilaterally. GI: Abdomen is round non-distended, Abd is soft and non tender X 4 quads. Reports constipation, nausea. Derm: Skin is intact, is healthy with good turgor, Skin is pink, warm \T\ dry. Musculoskeletal: Capillary refill < 3 seconds, Range of motion: intact in all extremities. 07:40 Reassessment: covid and flu swab sent to lab. em 08:45 Reassessment: Patient appears in no apparent distress at this time. Patient is alert, em oriented x 3, equal unlabored respirations, skin warm/dry/pink. Patient states symptoms have improved. 09:28 Reassessment: Patient appears in no apparent distress at this time. Patient and/or em family updated on plan of care and expected duration. Pain level reassessed. Patient is alert, oriented x 3, equal unlabored respirations, skin warm/dry/pink. 10:30 Reassessment: Patient appears in no apparent distress at this time. Patient and/or em family updated on plan of care and expected duration. Pain level reassessed. Patient is alert, oriented x 3, equal unlabored respirations, skin warm/dry/pink. 11:30 Reassessment: Patient appears in no apparent distress at this time. Patient and/or em family updated on plan of care and expected duration. Pain level reassessed. Patient is alert, oriented x 3, equal unlabored respirations, skin warm/dry/pink. 11:53 Reassessment: Patient appears in no apparent distress at this time. RT at bedside. em Vital Signs: 06:48 BP 191 / 117; Pulse 140; Resp 28; Temp 96.7; Pulse Ox 84% on R/A; Weight 93.44 kg; ea Height 5 ft. 10 in. (177.80 cm); 07:14 BP 153 / 96; Pulse 127; Resp 27; Pulse Ox 97% on BiPAP; em 08:16 BP 130 / 82; Pulse 120; Resp 26; Pulse Ox 96% on BiPAP; em 09:28 BP 106 / 69; Pulse 106; Resp 24; Pulse Ox 97% on R/A; em 10:30 BP 142 / 85; Pulse 98; Resp 24; Pulse Ox 97% on BiPAP; em 11:43 BP 128 / 81; Pulse 95; Resp 22; Pulse Ox 96% on 35% BiPAP; em 06:48 Body Mass Index 29.56 (93.44 kg, 177.80 cm) ea ED Course: 06:40 Patient arrived in ED. bp1 06:52 Triage completed. ea 06:52 Wai Harper, RN is Primary Nurse. jb4 06:52 Patient has correct armband on for positive identification. Bed in low position. Call ea light in reach. Placed in gown. Side rails up X 1. library monitor on. Pulse ox on. NIBP on. 06:53 Arm band placed on right wrist. Patient placed in an exam room, on a stretcher, on ea oxygen, on potline monitor, on pulse oximetry. 07:04 Chu Quiñonez MD is Attending Physician. kdr 07:06 Inserted saline lock: 18 gauge in right wrist, using aseptic technique. Blood collected.ds4 07:43 XRAY Chest (1 view) In Process Unspecified. EDMS 09:06 Marco Antonio Lu DO is Hospitalizing Provider. kdr 11:51 No provider procedures requiring assistance completed. Patient admitted, IV remains in em place. Administered Medications: 06:57 Drug: Xopenex 1.25 mg Route: Inhalation; jb4 07:28 Follow up: Response: No adverse reaction; Marked relief of symptoms em 07:28 Drug: Lasix 40 mg Route: IVP; Site: right forearm; em 09:29 Follow up: Response: No adverse reaction; Marked relief of symptoms em Outcome: 09:07 Decision to Hospitalize by Provider. kdr 11:51 Admitted to ICU accompanied by tech, via stretcher, room ICU 2, with oxygen, with em chart, Report called to CHUCK Liang 11:51 Condition: improved 11:51 Instructed on the need for admit, Demonstrated understanding of instructions. 12:00 Patient left the ED. em Signatures: Dispatcher [employer] Chu Paul MD MD kdr Munoz, Edgar RN RN Jessica Arana RN RN Douglas Guzman 4 Wai Harper RN CHUCK jb4 Ivanna Vásquez RN RN Deb Soares [facility] Corrections: (The following items were deleted from the chart) 06:55 06:48 Acuity: JACKIE 2 zoran tukcer
--- NOTE | 2020-06-25 09:08 | EDPHYS ---
Physician Documentation [facility] Name: Sylvain Veronica Age: 69 yrs Sex: Male : 1950 Arrival Date: 06/25/2020 Time: 06:40 Bed 7 Private MD: ED Physician Chu Quiñonez HPI: 06/25 07:19 This 69 yrs old Male presents to ER via Wheelchair with complaints of kdr Shortness Of Breath. 07:19 The patient has shortness of breath at rest, with light activity. Onset: The kdr symptoms/episode began/occurred suddenly, just prior to arrival, 1.5 hour(s) ago. Duration: The symptoms are continuous, and are steadily getting worse. The patient's shortness of breath is aggravated by exertion, light activity, is alleviated by nothing. Associated signs and symptoms: Pertinent positives: productive cough. Severity of symptoms: At their worst the symptoms were moderate severe in the emergency department the symptoms are unchanged. The patient has not experienced similar symptoms in the past. The patient has not recently seen a physician. Historical: - Allergies: 06:53 No Known Allergies; ea - Home Meds: 06:53 insulin [Active]; ea - PMHx: 06:53 Diabetes - IDDM; ea - PSHx: 06:53 Cholecystectomy; ea - Immunization history:: Adult Immunizations up to date. - Social history:: Smoking status: Patient/guardian denies using tobacco, but has a distant history of tobacco abuse. ROS: 07:19 Constitutional: Negative for fever, chills, and weight loss, Eyes: Negative for injury, kdr pain, redness, and discharge, ENT: Negative for injury, pain, and discharge, Neck: Negative for injury, pain, and swelling, Abdomen/GI: Negative for abdominal pain, nausea, vomiting, diarrhea, and constipation, Back: Negative for injury and pain, : Negative for injury, bleeding, discharge, and swelling, MS/Extremity: Negative for injury and deformity, Skin: Negative for injury, rash, and discoloration, Neuro: Negative for headache, weakness, numbness, tingling, and seizure activity. Psych: Negative for depression, anxiety, suicide ideation, homicidal ideation, and hallucinations, Allergy/Immunology: Negative for hives, rash, and allergies, Endocrine: Negative for neck swelling, polydipsia, polyuria, polyphagia, and marked weight changes, Hematologic/Lymphatic: Negative for swollen nodes, abnormal bleeding, and unusual bruising. 07:19 Cardiovascular: Positive for edema, orthopnea, Negative for chest pain. 07:19 Respiratory: Positive for cough, with rust-colored sputum, dyspnea on exertion, shortness of breath, wheezing, Negative for hemoptysis, orthopnea, pleurisy. Exam: 07:19 Constitutional: This is a well developed, well nourished patient who is awake, alert, kdr and in no acute distress. Head/Face: Normocephalic, atraumatic. Eyes: Pupils equal round and reactive to light, extra-ocular motions intact. Lids and lashes normal. Conjunctiva and sclera are non-icteric and not injected. Cornea within normal limits. Periorbital areas with no swelling, redness, or edema. Neck: Trachea midline, no thyromegaly or masses palpated, and no cervical lymphadenopathy. Supple, full range of motion without nuchal rigidity, or vertebral point tenderness. No Meningismus. Chest/axilla: Normal chest wall appearance and motion. Nontender with no deformity. No lesions are appreciated. Abdomen/GI: Soft, non-tender, with normal bowel sounds. No distension or tympany. No guarding or rebound. No evidence of tenderness throughout. Back: No spinal tenderness. No costovertebral tenderness. Full range of motion. Skin: Warm, dry with normal turgor. Normal color with no rashes, no lesions, and no evidence of cellulitis. MS/ Extremity: Pulses equal, no cyanosis. Neurovascular intact. Full, normal range of motion. 1+ edema bilateral lower extremities Neuro: Awake and alert, GCS 15, oriented to person, place, time, and situation. Cranial nerves II-XII grossly intact. Motor strength 5/5 in all extremities. Sensory grossly intact. Cerebellar exam normal. Normal gait. Psych: Awake, alert, with orientation to person, place and time. Behavior, mood, and affect are within normal limits. 07:19 Cardiovascular: Rate: tachycardic, Rhythm: regular, Pulses: no pulse deficits are appreciated, Heart sounds: normal, Edema: 1+ edema to level of left midcalf, left ankle, left foot, right midcalf, right ankle and right foot. 07:19 ECG was reviewed by the Attending Physician. Vital Signs: 06:48 BP 191 / 117; Pulse 140; Resp 28; Temp 96.7; Pulse Ox 84% on R/A; Weight 93.44 kg; ea Height 5 ft. 10 in. (177.80 cm); 07:14 BP 153 / 96; Pulse 127; Resp 27; Pulse Ox 97% on BiPAP; em 08:16 BP 130 / 82; Pulse 120; Resp 26; Pulse Ox 96% on BiPAP; em 09:28 BP 106 / 69; Pulse 106; Resp 24; Pulse Ox 97% on R/A; em 10:30 BP 142 / 85; Pulse 98; Resp 24; Pulse Ox 97% on BiPAP; em 11:43 BP 128 / 81; Pulse 95; Resp 22; Pulse Ox 96% on 35% BiPAP; em 06:48 Body Mass Index 29.56 (93.44 kg, 177.80 cm) ea MDM: 09:07 Patient medically screened. kdr 09:07 Data reviewed: vital signs. kdr 06/25 06:55 Order name: Blood Culture Adult (2) rn 06/25 06:55 Order name: BMP; Complete Time: 07:42 rn 06/25 06:55 Order name: CBC with Diff; Complete Time: 07:42 rn 06/25 06:55 Order name: CPK; Complete Time: 07:42 rn 06/25 06:55 Order name: D-Dimer rn 06/25 06:55 Order name: Magnesium; Complete Time: 07:42 rn 06/25 06:55 Order name: NT PRO-BNP; Complete Time: 07:42 rn 06/25 06:55 Order name: PT-INR rn 06/25 06:55 Order name: Ptt, Activated rn 06/25 06:55 Order name: Troponin (emerg Dept Use Only); Complete Time: 07:42 rn 06/25 06:56 Order name: Flu; Complete Time: 09:03 rn 06/25 07:11 Order name: Glucose, Ancillary Testing EDMS 06/25 09:17 Order name: SARS-COV-2 RT PCR EDMS 06/25 06:44 Order name: XRAY Chest (1 view) rn 06/25 06:55 Order name: IV Start; Complete Time: 06:56 rn 06/25 06:55 Order name: BIPAP rn 06/25 06:55 Order name: EKG; Complete Time: 06:56 rn 06/25 06:55 Order name: Cardiac monitoring; Complete Time: 06:56 rn 06/25 06:55 Order name: EKG - Nurse/Tech; Complete Time: 06:56 rn 06/25 06:55 Order name: Labs collected and sent; Complete Time: 06:56 rn 06/25 06:55 Order name: O2 Per Protocol; Complete Time: 06:56 rn 06/25 06:55 Order name: O2 Sat Monitoring; Complete Time: 06:56 rn 06/25 11:14 Order name: Respiratory Therapy Consult EDMS 06/25 11:14 Order name: Echo with Doppler EDMS 06/25 11:14 Order name: C-Reactive Protein EDMS 06/25 11:14 Order name: Ferritin EDMS EC:19 Rate is 144 beats/min. Rhythm is regular, Sinus tachycardia with No ectopy. QRS [place] is kdr Normal. SC interval is normal. QRS interval is normal. QT interval is normal. Clinical impression: Sinus tachycardia. Administered Medications: 06:57 Drug: Xopenex 1.25 mg Route: Inhalation; jb4 07:28 Follow up: Response: No adverse reaction; Marked relief of symptoms em 07:28 Drug: Lasix 40 mg Route: IVP; Site: right forearm; em 09:29 Follow up: Response: No adverse reaction; Marked relief of symptoms em Disposition: 06/25/20 09:07 Hospitalization ordered by Marco Antonio Lu for Inpatient Admission. Preliminary diagnosis are Non-ST elevation (NSTEMI) myocardial infarction, Acute pulmonary edema. - Bed requested for Intensive Care Unit. - Status is Inpatient Admission. em - Condition is Fair. - Problem is new. - Symptoms have improved. Signatures: Dispatcher [employer] EDMT Chu Quiñonez MD MD kdr Munoz, Edgar RN RN em Endy Blake MD MD rn Martinez, Eric em1 Wai Harper RN RN jb4 Antunez, Elena, RN RN ea Corrections: (The following items were deleted from the chart) 08:01 06:57 CORONAVIRUS+MR.LAB.BRZ ordered. [facility] EDMT 11:13 09:07 Hospitalization Ordered by Marco Antonio Lu DO for Inpatient Admission. Preliminary em1 diagnosis is Non-ST elevation (NSTEMI) myocardial infarction; Acute pulmonary edema. Bed requested for Telemetry/MedSurg (Inpatient). Status is Inpatient Admission. Condition is Fair. Problem is new. Symptoms have improved. kdr 11:21 11:14 Blood Culture ordered. EDMS EDMS 12:00 11:13 06/25/2020 09:07 Hospitalization Ordered by Marco Antonio Lu DO for Inpatient em Admission. Preliminary diagnosis is Non-ST elevation (NSTEMI) myocardial infarction; Acute pulmonary edema. Bed requested for Intensive Care Unit. Status is Inpatient Admission. Condition is Fair. Problem is new. Symptoms have improved. em1
[2020-06-25 09:35] LABS: Protime INR 0.98
[2020-06-25 11:47] LABS: C-Reactive Protein 2.97 mg/L (<3.00); Ferritin 229.3 ng/mL (26-388)
--- NOTE | 2020-06-25 12:13 | P.HP ---
Certification for Inpatient Patient admitted to: Inpatient With expected LOS: >2 Midnights Patient will require the following post-hospital care: None Practitioner: I am a practitioner with admitting privileges, knowledge of patient current condition, hospital course, and medical plan of care. Services: Services provided to patient in accordance with Admission requirements found in Title 42 Section 412.3 of the Code of Federal Regulations Patient History Date of Service: 06/25/20 Primary Care Provider: Dr. Mott Reason for admission: Shortness of breath History of Present Illness: 69-year-old male with history of diabetes mellitus type 2 insulin- dependent and hypertension. Patient presented with shortness of breath. Shortness of breath came on suddenly. He reported shortness of breath last night. Some edema to the lower extremities were noted. EMS was called to evaluate patient. Patient came to the ER for further evaluation. In the ER patient was found to be short of breath. Patient required BiPAP. Patient appeared to be volume overloaded. Patient given IV Lasix. Blood pressures initially elevated. Heart rate in the 120 is respiratory to 26. Patient was hypoxic in the emergency room. White count 11.9, hemoglobin 14. Platelet count 214. Troponin 0.06. BNP greater than 1000. D-dimer 906. Patient had a positive COVID test. Patient admitted for further evaluation and treatment. Upon further evaluation. Patient reports that he was hospitalized at the end of February for COVID pneumonia. Patient was here for about 3 days. Patient reports that he recover from that event. He denied any recent fever, chills, or cough. Patient has reported some shortness of breath. Allergies No Known Allergies Allergy (Verified 06/12/12 05:49) Home medications list reviewed: Yes Home Medications: Insulin 70/30 NPH/Reg Human [Novolin 70/30*] 40 unit SQ DAILY AT SUPPER 03/28/20 Insulin 70/30 NPH/Reg Human [Novolin 70/30*] 60 unit SQ DAILY WITH BREAKFAST 03/28/20 Metformin HCl [Glucophage*] 500 mg PO DAILY 03/28/20 Ascorbic Acid 500 mg PO DAILY 7 Days #7 tablet 03/30/20 Benzonatate [Tessalon Perle*] 100 mg PO TID PRN #21 cap 03/30/20 Metoprolol Tartrate [Lopressor*] 25 mg PO BID 6AM 6PM #60 tab 03/30/20 Zinc Sulfate [Zinc Sulfate*] 220 mg PO BID #14 cap 03/30/20 predniSONE [Deltasone] 20 mg PO BID #14 tab 03/30/20 - Past Medical/Surgical History Diabetic: Yes -: Diabetes mellitus type 2 insulin-dependent -: Hypertension -: Cholecystectomy Psychosocial/ Personal History: Patient is . Lives at home. - Family History Family History: Reviewed- Non-Contributory - Social History Smoking Status: Never smoker Alcohol use: Yes CD- Drugs: No Caffeine use: Yes Place of Residence: Home Review of Systems General: Weakness, Malaise, As per HPI Eyes: Unremarkable ENT: Unremarkable Respiratory: Shortness of Breath, SOB with Excertion, As per HPI Cardiovascular: Edema, As per HPI Gastrointestinal: Unremarkable Genitourinary: Unremarkable Musculoskeletal: Pedal edema, As per HPI Integumentary: Unremarkable Lymphatics: Unremarkable Physical Examination - Physical Exam General: Alert, In no apparent distress, Oriented x3, Cooperative, Other (Patient on BiPAP.) HEENT: Atraumatic Neck: Supple Respiratory: Diminished (Diminished to the bases bilateral) Cardiovascular: Abnormal pulses (Mild tachycardia) Gastrointestinal: Normal bowel sounds, No tenderness, No masses, No rebound, No guarding Integumentary: No erythema, No warmth, No cyanosis, Tenderness/swelling (Some pitting edema to the lower extremities bilateral) Neurological: Normal speech, Normal strength at 5/5 x4 extr, Normal tone, Normal affect - Studies Laboratory Data (last 24 hrs) 06/25/20 09:14: PT 11.6, INR 0.98, APTT 28.4 06/25/20 07:06: WBC 11.9 H, Hgb 14.9, Hct 45.2, Plt Count 214 06/25/20 07:06: Sodium 140, Potassium 3.2 L, BUN 19 H, Creatinine 1.45 H, Glucose 326 H, Magnesium 2.2 Microbiology Data (last 24 hrs): 06/25/20 07:34 Nasopharnyx Influenza Type A Antigen Screen - Final 06/25/20 07:34 Nasopharnyx Influenza Type B Antigen Screen - Final Assessment and Plan - Plan Impression: Dyspnea secondary to acute on chronic respiratory failure likely related to acute on chronic diastolic CHF History of COVID Pneumonia in February, still with positive COVID Diabetes mellitus type 2 insulin-dependent with hyperglycemia Hypertension Acute on chronic renal failure stage 3 Plan: Dyspnea secondary to acute on chronic respiratory failure likely related to acute on chronic diastolic CHF: Patient admitted for further evaluation and treatment. Patient is positive for COVID. I do not suspect that the patient has COVID the pneumonia. This appears to be acute on chronic respiratory failure related to acute on chronic diastolic versus systolic CHF. Patient responding well to diuresis. Continue IV Lasix 40 mg 1 pill twice daily. Will check ferritin, CRP to further evaluate. D-dimer was elevated. Will provide DVT prophylaxis. Will also start medication for blood pressure. Will order echocardiogram to further evaluate. Case discussed with cardiology. Will consult pulmonology and Nephrology to further evaluate. Will discuss further with pulmonology about his positive COVID test. May not need IV steroid especially in light of his hyperglycemia. Anticipate improvement over the next 24-72 hr. History of COVID Pneumonia in February, still with positive COVID: Patient was treated in February. He reports that he recovered from that. No recent fever, chills, cough. This appears to be very acute likely more related to CHF then COVID. Will order CRP and ferritin level to further evaluate. Will also discuss with pulmonology for recommendation. Patient on DVT prophylaxis. Consider V/Q scan to further evaluate. Diabetes mellitus type 2 insulin-dependent with hyperglycemia: Will start aggressive sliding scale. Will also start basal insulin for better control. Will check A1c. Will adjust accordingly. Hypertension: Patient previously on medication. Patient reports he is not taking any blood pressure medication. Patient needs medication at this time. Will start metoprolol. Acute on chronic renal failure stage 3: Will obtain renal ultrasound. Nephrology consulted to further evaluate and assess. Discharge Plan: Home Plan to discharge in: 72 Hours - Advance Directives Does patient have a Living Will: No Does patient have a Durable POA for Healthcare: No - Code Status/Comfort Care Code Status Assessed: Yes (Patient is full code) Time Spent Managing Pts Care (In Minutes): 55
[2020-06-25] MEDS ORDERED: ACETAMINOPHEN 500 MG TAB PO PRN (13:05)
[2020-06-25] MEDS ORDERED: ONDANSETRON 4 MG/2 ML VIAL IV PRN (13:05)
[2020-06-25] MEDS ORDERED: D50W 25 GM/50 ML SYRINGE/VIAL IV PRN (13:05)
[2020-06-25] MEDS ORDERED: GLUCAGON 1 MG/VIAL IM PRN (13:05)
[2020-06-25] MEDS: INSULIN -REGULAR HUMAN 50 UNIT/0.5 ML ML SQ SCH ×3 (13:30→20:44)
[2020-06-25 15:22] LABS: CKMB Creatine Kinase MB 4.2 ng/mL (0.3-3.6)
[2020-06-25 15:26] LABS: Troponin I 0.85 ng/mL (0.0-0.045)
[2020-06-25] MEDS ORDERED: INFLUENZA VACCINE (for 3y+) 0.5 ML DOSE IMVAC ONE (16:00)
[2020-06-25] MEDS ORDERED: PNEUMOCOCCAL VACCINE 0.5 ML IMVAC ONE (16:00)
[2020-06-25] MEDS: METOPROLOL TAR 25 MG TAB PO SCH (17:04)
[2020-06-25] MEDS: FUROSEMIDE 40 MG/4 ML VIAL IV SCH (17:05)
[2020-06-25] MEDS: ENOXAPARIN 40 MG/0.4 ML SQ SCH (17:40)
--- NOTE | 2020-06-25 17:51 | EKG ---
Test Date: 2020-06-25 Test Time: 06:48:46 Slurry Mixer: JACKIE MEASUREMENT RESULTS: Intervals: Rate: 144 [place]: 130 QRSD: 90 QT: 282 QTc: 436 [place]: P: 23 [place]: 130 QRS: 57 T: 48 INTERPRETIVE STATEMENTS: Sinus tachycardia Possible Left atrial enlargement Borderline ECG Compared to ECG 03/27/2020 21:38:38 Ventricular premature complex(es) no longer present Myocardial infarct finding no longer present Electronically Signed On 06-25-20 17:50:00 CDT by Rob Mendoza
[2020-06-25 18:41] LABS: Potassium 3.2 mmol/L (3.5-5.1)
[2020-06-25] MEDS ORDERED: POTASSIUM CL SA 10 MEQ TAB PO ONE (19:00)
[2020-06-25] MEDS: INSULIN GLARGINE 100 UNITS/ML SQ SCH (21:34)
[2020-06-25 23:16] LABS: CKMB Creatine Kinase MB 3.2 ng/mL (0.3-3.6)
[2020-06-25 23:17] LABS: Troponin I 0.88 ng/mL (0.0-0.045)
[2020-06-26 05:15] LABS: Absolute Lymphocytes (CBC) 2.1 K/uL (0.7-4.9); Basophils % 0.5 % (0-1.3); Hematocrit 38.5 % (39.6-49.0); Lymphocytes % 29.9 % (15.3-44.8); MPV 9.7 fL (7.6-11.3); RBC Red Blood Cell Count 4.65 M/uL (4.33-5.43)
[2020-06-26 05:35] LABS: Magnesium 2.1 mg/dL (1.8-2.4); Thyroid Stimulating Hormone 0.759 uIU/mL (0.360-3.740)
[2020-06-26] MEDS: METOPROLOL TAR 25 MG TAB PO SCH (05:42)
[2020-06-26] MEDS: INSULIN -REGULAR HUMAN 50 UNIT/0.5 ML ML SQ SCH ×4 (07:30→21:00)
[2020-06-26] MEDS: ENOXAPARIN 40 MG/0.4 ML SQ SCH (07:39)
[2020-06-26] MEDS: FUROSEMIDE 40 MG/4 ML VIAL IV SCH (07:40)
[2020-06-26] MEDS: INSULIN GLARGINE 100 UNITS/ML SQ SCH ×2 (07:41→21:06)
[2020-06-26] MEDS ORDERED: ENOXAPARIN 40 MG/0.4 ML SQ SCH (09:00)
[2020-06-26] MEDS ORDERED: ASPIRIN 81 MG CHEWABLE TABLET PO SCH (09:00)
[2020-06-26] MEDS ORDERED: POTASSIUM 25 MEQ EFFERV TAB PO ONE (09:00)
--- NOTE | 2020-06-26 10:19 | P.CNS ---
Date of Consult: 06/26/20 Primary Care Provider: Dr. Mott Chief Complaint: Shortness of breath History of Present Illness: Patient is 69 years of age the history of arizmendi virus infection developed sudden onset of cough shortness of breath and was admitted from the emergency room he was in significant distress is not doing much better denies any fever chills or any abdominal complaints found to have bilateral interstitial changes negative CRP mildly elevated troponin renal insufficiency hypokalemia Allergies No Known Allergies Allergy (Verified 06/12/12 05:49) Home Medications: Ascorbic Acid 500 mg PO DAILY 7 Days #7 tablet 03/30/20 Benzonatate [Tessalon Perle*] 100 mg PO TID PRN #21 cap 03/30/20 Metoprolol Tartrate [Lopressor*] 25 mg PO BID 6AM 6PM #60 tab 03/30/20 - Past Medical/Surgical History Diabetic: Yes -: Diabetes mellitus type 2 insulin-dependent -: Hypertension -: COVID -: Cholecystectomy Psychosocial/ Personal History: Patient is . Lives at home. - Social History Smoking Status: Former smoker Alcohol use: No CD- Drugs: No Caffeine use: Yes Place of Residence: Home Review of Systems 10-point ROS is otherwise unremarkable General: Weakness Respiratory: Shortness of Breath Physical Examination Temp Pulse Resp BP Pulse Ox 97.7 F 102 H 17 130/83 95 06/26/20 07:00 06/26/20 10:00 06/26/20 10:00 06/26/20 10:00 06/26/20 10:00 General: Alert, Oriented x3 Neck: Supple Respiratory: Clear to auscultation bilaterally Cardiovascular: Normal S1 S2 Gastrointestinal: Normal bowel sounds, Soft and benign - Problems (1) Pneumonia due to COVID-19 virus Current Visit: No Status: Acute Plan: Patient is 69 years of age admitted with acute onset of shortness of breath and cough bilateral interstitial changes which is been worse compared to his previous x-ray patient was diagnosed with coronal virus infection in March any recovered very quickly CRP is negative inflammatory changes are more pronounced mildly elevated troponin oxygenation satisfactory may have recurrent inflammatory changes from arizmendi virus infection I recommend adding some prednisone 20 mg twice a day low-dose diuretic with spironolactone outpatient echocardiogram full anticoagulation for now recommend rule out pulmonary embolism is CT angiogram
[2020-06-26] MEDS: APIXABAN 5 MG TABLET PO SCH ×2 (10:37→21:05)
[2020-06-26] MEDS: SPIRONOLACTONE 25 MG TABLET PO SCH (10:37)
[2020-06-26] MEDS: predniSONE 20 MG TAB PO SCH ×2 (11:11→21:05)
[2020-06-26 12:28] LABS: Urine Appearance CLEAR; Urine Bilirubin NEGATIVE (NEG); Urine Blood NEGATIVE (NEG); Urine Color YELLOW; Urine Glucose NEGATIVE (NEG); Urine Protein TRACE (NEG); Urine Urobilinogen 0.2 mg/dL (0.2-1.0)
[2020-06-26 12:29] LABS: Urine Microscopic Reflex ORDER UMIC
--- NOTE | 2020-06-26 12:34 | P.PN ---
Subjective Date of Service: 06/26/20 Primary Care Provider: Dr. Mott Chief Complaint: Shortness of breath Subjective: Improving, Other (Patient feels better. Still on) Physical Examination - Vital Signs Temperature: 97.7 F Blood Pressure: 130/83 Pulse: 102 Respirations: 17 Pulse Ox (%): 95 - Studies Microbiology Data (last 24 hrs): 06/25/20 07:34 Nasopharnyx Influenza Type A Antigen Screen - Final 06/25/20 07:34 Nasopharnyx Influenza Type B Antigen Screen - Final Assessment & Plan Physician Review Additional Text: Impression: Dyspnea secondary to acute on chronic respiratory failure likely related to acute on chronic diastolic CHF complicated with possible reinfection of COVID History of COVID Pneumonia in February, still with positive COVID Diabetes mellitus type 2 insulin-dependent with hyperglycemia Hypertension Acute on chronic renal failure stage 3 Plan: Dyspnea secondary to acute on chronic respiratory failure likely related to acute on chronic diastolic CHF complicated with possible reinfection of COVID: Patient improved. Continue IV Lasix. Pulmonary added Aldactone. Continue fluid restriction. Case discussed with pulmonology. Pulmonology recommends to treat for possible reinfection of COVID even though CRP is within normal range. Will also place on Eliquis for DVT prophylaxis. Continue monitor closely. If significantly improved will consider discharge tomorrow with the possibility of cardiac evaluation as an outpatient including echocardiogram and cardiac stress test. Will order CT scan to rule out pulmonary embolism as recommended by pulmonology. Will discuss with nephrology as well. Will continue to reassess. Wean off oxygen. Patient may require oxygen at discharge. Anticipate improvement over the next 24 hr. History of COVID Pneumonia in February, still with positive COVID, possible reinfection: Patient was treated in February. He reports that he recovered from that. No recent fever, chills, cough. CRP and ferritin level unremarkable. Pulmonology recommends to initiate steroid treatment. Will order CT scan to rule out pulmonary embolism. Patient started on Eliquis. Diabetes mellitus type 2 insulin-dependent with hyperglycemia: Continue basal insulin. Will monitor closely. Accu-Cheks and sliding scale in place. Will adjust medication accordingly. Hypertension: Continue to adjust medication for better control. Acute on chronic renal failure stage 3: Renal function improved. Will obtain renal ultrasound. Nephrology consulted to further evaluate and assess. Time Spent Managing Pts Care (In Minutes): 55
[2020-06-26 12:36] LABS: Urine Bacteria <20 /HPF (NONE SEEN); Urine Culture Reflex Order REFLEXED; Urine RBC NONE SEEN /HPF (NONE SEEN); Urine Yeast PRESENT (NONE SEEN)
--- NOTE | 2020-06-26 13:58 | RAD REPORT ---
EXAM DESCRIPTION: CT - Chest Angio - 06/26/2020 1:38 pm CLINICAL HISTORY: Chest pain COMPARISON: June 25, 2020 chest x-ray TECHNIQUE: Dynamically enhanced axial 3 mm thick images of the chest were obtained during administra tion of <100> mL Isovue 370 IV contrast. Coronal and oblique reconstruction images were generated and reviewed. Exam utilizes a protocol for optimal evaluation of pulmonary arterial tree. Maximum intensity projections 3D imaging was utilized All CT scans are performed using dose optimization technique as appropriate and may include automated exposure control or mA/KV adjustment according to patient size. FINDINGS: A pulmonary embolus is not seen. A thoracic aortic aneurysm is not noted. Small bilateral pleural effusions. A pericardial effusion is not seen. Mild bilateral interstitial lung opacities likely mild interstitial pulmonary edema. IMPRESSION: Negative for a pulmonary embolism. Mild CHF
[2020-06-26] MEDS ORDERED: POTASSIUM CL SA 10 MEQ TAB PO ONE (14:52)
--- NOTE | 2020-06-26 15:22 | CON ---
Date of Consultation: 06/26/2020 Requesting Provider: Marco Antonio Lu DO Reason For Consultation: Renal insufficiency, electrolyte imbalance. History Of Present Illness: Mr. Veronica is a pleasant 69-year-old male with a history of hypertension and type 2 diabetes, who presented to the hospital after having acute shortness of breath at work. T he patient states that he was there at the job, felt some slight shortness of breath early in the day , which progressed. His grandson brought him here to the emergency room and our consultation was req uested now for renal insufficiency. The patient, so far, treatment has consisted of management of acute congestive heart failure. He lake s have a history of COVID-19 pneumonia in February. However, it appears that inflammatory markers are do wn and appears to be more of a cardiac event at this time. In terms of renal function, the patient did present with a creatinine of 1.45. Historically, the [facility] ient does not have any obvious renal insufficiency based on lab review. He also states that he does not take any recent NSAIDs. He did have some iodinated contrast administration today for a CTA as pa rt of a PE ruled out. He currently feels well. He is not requiring supplemental oxygen. His urine has been collected adeq uately and he has 1400 mL of urine output thus far. Past Medical History: As per HPI. Family History: Noncontributory. Physical Examination: Vital Signs: Blood pressure is now 106/69, heart rate is elevated at 106, and he has remained afebri le. General: No acute distress. Remainder of exam was deferred but report was taken from nursing with the patient has diminished slava th sounds, but no obvious rhonchi or wheezing. Abdomen: Soft. Extremities: With trace edema. Laboratory Data: Sodium 144, potassium 3, chloride 109, CO2 27, BUN 22, creatinine 1.15, glucose 133 , calcium 8.1. Potassium has remained low. Magnesium level has been normal. CBC reviewed stable. The patient's D-dimer is elevated. The patient's COVID PCR remains positive. UA had shown some yeas t today but overall bland. Medications: Current medications were reviewed. The patient is on Lasix 40 mg p.o. daily, also Eliq uis 10 mg p.o. b.i.d., receiving insulin. Continues on metoprolol as well as prednisone 20 b.i.d. H ingris has received 50 mEq potassium x1 today and is also on spironolactone 25 daily. Diagnostic Imaging: Showing small bilateral pleural effusions and also showing mild edema. There wa s no embolus noted. Impression: 1.Renal insufficiency, likely in the setting of cardiorenal syndrome. 2.Hypokalemia in the setting of active diuresis. 3.Acute respiratory failure, combination of acute congestive heart failure. Unclear if diastolic or systolic type. 4.Diabetes mellitus. 5.Hypertension. 6.Possible bpf-nc-gwypkni elevation myocardial infarction. Plan: Renal function is stable. He will have to be monitored closely as he has received iodinated c ontrast which having a background diabetes does put him at risk for contrast-induced nephropathy. We will avoid hypotension and if blood pressure does remain low, would recommend holding the patient's Lasix dose based on holding parameters. The patient should not have any NSAIDs and we should avoid further iodinated contrast if possible. Follow up echocardiogram. We will monitor daily labs. Thank you for the consultation. We will continue to follow. GARRICK Voice ID: [id number] Report ID: [id number]
[2020-06-26] MEDS: METOPROLOL TAR 50 MG TAB PO SCH (17:01)
[2020-06-26] MEDS ORDERED: METOPROLOL TAR 25 MG TAB PO SCH (18:00)
--- NOTE | 2020-06-26 19:31 | CON ---
Date of Consultation: 06/25/2020 Reason For Consultation: Elevated troponin. History Of Present Illness: Mr. Veronica is a 69-year-old Latin-Faroese male who is COVID positive, veliz s diabetes and hypertension, sees Dr. Mott. No previous cardiac history. Came in with shortness of breath, atypical chest pain, elevated troponin, feeling a whole lot better today after gentle diuresi s. He came in very hypertensive at 191/117, which has probably caused his elevated troponin. He den ied fever or chills or cough. Denied PND or orthopnea or pedal edema. He just had shortness of slava th. Past Medical History: As stated above. Allergies: NONE. Review of Systems: Negative. Social History: Negative. Family History: Negative. Medications: Include insulin, metformin, metoprolol, and prednisone. Physical Examination: Vital Signs: Initial pressure was 191/117, now is 154/99. HEENT: Negative. Neck: Supple with no bruit. Chest: Clear. Cardiac: Normal. Abdomen: Benign. Extremities: Revealed no clubbing, cyanosis, or edema. Diagnostic Data: Potassium was 3.2, glucose was 325. Troponin is 0.85. BNP was 1753. White count is 12,000. D-dimer was 906. Creatinine is 1.28. EKG now is normal, initially had sinus tachycardia . Impression And Plan: 1.Elevated troponin, I think secondary to hypertensive crisis. 2.Congestive heart failure, probably diastolic, most likely secondary to hypertension. 3.Diabetes. 4.Elevated D-dimer, creatinine, and BNP that are nonspecific and probably secondary to congestive he art failure. I think patient can certainly go home on his home medications plus low-dose Lasix. We may have to increase his metoprolol dose to get his blood pressure better, maybe add Norvasc if we veliz ve to. I think he needs to have an echocardiogram and a Lexiscan which should be done in the next mo nth or so after he becomes COVID negative after retesting. I will arrange for that as an outpatient in my office. The case was discussed with Dr. Lu. MOUSTAPHA/NEYDA Voice ID: [id number] Report ID: [id number]
[2020-06-26] MEDS ORDERED: predniSONE 20 MG TAB PO SCH (21:00)
[2020-06-27] MEDS: METOPROLOL TAR 50 MG TAB PO SCH (05:32)
[2020-06-27 05:46] LABS: Absolute Lymphocytes (CBC) 2.2 K/uL (0.7-4.9); Basophils % 0.3 % (0-1.3); Hematocrit 43.1 % (39.6-49.0); Lymphocytes % 21.1 % (15.3-44.8); MPV 9.4 fL (7.6-11.3)
[2020-06-27 06:06] LABS: C-Reactive Protein 4.81 mg/L (<3.00); Magnesium 2.2 mg/dL (1.8-2.4); Potassium 3.7 mmol/L (3.5-5.1)
[2020-06-27 07:05] VITALS: BMI 26.9
[2020-06-27] MEDS: INSULIN -REGULAR HUMAN 50 UNIT/0.5 ML ML SQ SCH (08:10)
[2020-06-27] MEDS: INSULIN GLARGINE 100 UNITS/ML SQ SCH (08:10)
[2020-06-27] MEDS: APIXABAN 5 MG TABLET PO SCH (08:11)
[2020-06-27] MEDS: SPIRONOLACTONE 25 MG TABLET PO SCH (08:12)
[2020-06-27] MEDS: predniSONE 20 MG TAB PO SCH (08:13)
[2020-06-27 08:14] VITALS: BP 120/65
[2020-06-27 08:19] VITALS: O2SAT 94
--- NOTE | 2020-06-27 08:19 | P.DS ---
Admission Date: 06/25/20 Discharge Date: 06/27/20 Primary Care Provider: Dr. Mott Disposition: ROUTINE DISCHARGE Discharge Condition: GOOD Reason for Admission: Shortness of breath Consultations: Pulmonary-Dr. Mirza Cardiology-Dr. Mendoza Procedures: COVID: Positive CT scan: FINDINGS: A pulmonary embolus is not seen. A thoracic aortic aneurysm is not noted. Small bilateral pleural effusions. A pericardial effusion is not seen. Mild bilateral interstitial lung opacities likely mild interstitial pulmonary edema. IMPRESSION: Negative for a pulmonary embolism. 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 Patient presented with shortness of breath. Shortness of breath came on suddenly. He reported shortness of breath last night. Some edema to the lower extremities were noted. EMS was called to evaluate patient. Patient came to the ER for further evaluation. In the ER patient was found to be short of breath. Patient required BiPAP. Patient appeared to be volume overloaded. Patient given IV Lasix. Blood pressures initially elevated. Heart rate in the 120 is respiratory to 26. Patient was hypoxic in the emergency room. White count 11.9, hemoglobin 14. Platelet count 214. Troponin 0.06. BNP greater than 1000. D-dimer 906. Patient had a positive COVID test. Patient admitted for further evaluation and treatment. Upon further evaluation. Patient reports that he was hospitalized at the end of February for COVID pneumonia. Patient was here for about 3 days. Patient reports that he recover from that event. He denied any recent fever, chills, or cough. Patient has reported some shortness of breath. Hospital Course: Patient presented with dyspnea secondary to acute on chronic respiratory failure with hypoxia likely related to acute on chronic diastolic CHF. Patient treated for COVID in February. Patient remains positive. His respiratory failure was also suspicious for reinfection of COVID as well. Pulmonology, cardiology, and nephrology were consulted. Patient received IV diuretic therapy with improvement. Patient currently on Lasix and Aldactone. Patient no longer requires oxygen. Fluid intake very well controlled. CT scan shows no pulmonary embolism. CHF identified. At discharge patient will continue with a 1500 cc per day fluid restriction and low-salt diet. Recommend to monitor his weight daily. If his weight increases by more than 5 lb he is to contact cardiology or is PCP for further recommendation. At discharge for his CHF, patient will continue with Lasix 40 mg daily and Aldactone 25 mg daily. Further adjustment in medication can be done by pulmonology or cardiology. Recommend follow up with cardiology within 1 week to follow up this hospitalization. Cardiology plans for echocardiogram and cardiac stress test in the near future. For his COVID, patient will continue with prednisone 20 mg 1 pill twice daily. Patient may she also continue with vitamin-C supplementation and aspirin 81 mg daily. Recommend follow up with pulmonology within 1 week to follow up this hospitalization. Patient will continue with CDC guidelines for COVID. Patient to remain isolated at home. Patient to continue with social distancing, hand washing and facemask use. Further instruction on isolation will be addressed by pulmonology at follow-up. Patient with diabetes mellitus type 2 insulin-dependent with hyperglycemia. This has remained stable. At discharge patient will continue with insulin 70/30 30 units subcu twice daily. Recommend to maintain blood sugar less than 140 fasting and less than 200 after meals. Patient will be on steroid treatment for COVID. Adjustment in his medication for better diabetic control during this time may be needed. This can be done with the help of his PCP. Patient with hypertension. Patient also with noted elevation in troponin. Cardiology felt this elevation was related to uncontrolled hypertension/hypertensive crisis. His medication was adjusted. At discharge blood pressure now better controlled. At discharge he will continue with metoprolol 50 mg 1 pill twice daily. Recommend to maintain blood pressure less 150/80. Further adjustment can be done by his PCP. Patient with acute on chronic renal disease stage III. This has remained stable. Nephrology was consulted. Cardiorenal component likely. Continue with above recommendation. Recommend no further use of nonsteroidal anti- inflammatories. Future medications may need to be renally dose. Recommend to recheck lab-BMP in 1-2 weeks to follow up his care. Recommend follow up with nephrology in 1-2 weeks to follow up this hospitalization. Vital Signs/Physical Exam: Temp Pulse Resp BP Pulse Ox 98.1 F 76 15 114/73 96 06/27/20 04:00 06/27/20 06:00 06/27/20 06:00 06/27/20 06:00 06/27/20 06:00 General: Alert, In no apparent distress, Oriented x3, Cooperative HEENT: Atraumatic Neck: Supple Respiratory: Clear to auscultation bilaterally, Normal air movement Cardiovascular: Normal pulses, Regular rate/rhythm Gastrointestinal: Normal bowel sounds, Soft and benign, Non-distended, No tende rness, No masses, No rebound, No guarding Musculoskeletal: No erythema, No tenderness, No warmth Integumentary: No tenderness/swelling, No erythema, No warmth, No cyanosis Neurological: Normal speech, Normal strength at 5/5 x4 extr, Normal tone, Normal affect Laboratory Data at Discharge: WBC 10.2 K/uL (4.3-10.9) D 06/27/20 05:20 Hgb 14.5 g/dL (13.6-17.9) 06/27/20 05:20 Hct 43.1 % (39.6-49.0) 06/27/20 05:20 Plt Count 223 K/uL (152-406) 06/27/20 05:20 PT 11.6 SECONDS (9.5-12.5) 06/25/20 09:14 INR 0.98 06/25/20 09:14 APTT 28.4 SECONDS (24.3-36.9) 06/25/20 09:14 Sodium 140 mmol/L (136-145) 06/27/20 05:20 Potassium 3.7 mmol/L (3.5-5.1) 06/27/20 05:20 BUN 22 mg/dL (7-18) H 06/27/20 05:20 Creatinine 1.17 mg/dL (0.55-1.3) 06/27/20 05:20 Glucose 166 mg/dL (74-106) H 06/27/20 05:20 Magnesium 2.2 mg/dL (1.8-2.4) 06/27/20 05:20 Troponin I 0.88 ng/mL (0.0-0.045) H* 06/25/20 22:20 Triglycerides 172 mg/dL (<150) H 06/26/20 04:36 Cholesterol 161 mg/dL (<200) 06/26/20 04:36 HDL Cholesterol 46 mg/dL (40-60) 06/26/20 04:36 Cholesterol/HDL Ratio 3.50 06/26/20 04:36 Home Medications: Benzonatate [Tessalon Perle*] 100 mg PO TID PRN #21 cap 03/30/20 Ascorbic Acid 500 mg PO DAILY #30 tablet 06/27/20 Aspirin [Aspirin EC 81 MG] 81 mg PO DAILY #90 tablet. 06/27/20 Furosemide [Lasix*] 40 mg PO DAILY #30 tab 06/27/20 Insulin 70/30 NPH/Reg Human [Novolin 70/30*] 30 units SQ BIDWM 06/27/20 Metoprolol Tartrate [Lopressor*] 50 mg PO BID 6AM 6PM #60 tab 06/27/20 Spironolactone [Aldactone*] 25 mg PO DAILY #30 tab 06/27/20 predniSONE [Prednisone*] 20 mg PO BID #28 tab 06/27/20 New Medications: Spironolactone [Aldactone*] 25 mg PO DAILY #30 tab Ascorbic Acid 500 mg PO DAILY #30 tablet Aspirin [Aspirin EC 81 MG] 81 mg PO DAILY #90 tablet. Furosemide [Lasix*] 40 mg PO DAILY #30 tab Metoprolol Tartrate [Lopressor*] 50 mg PO BID 6AM 6PM #60 tab predniSONE [Prednisone*] 20 mg PO BID #28 tab Patient Discharge Instructions: 1. Recommend follow up with PCP in 1 week to follow up this hospitalization. 2. Patient presented with dyspnea secondary to acute on chronic respiratory failure with hypoxia likely related to acute on chronic diastolic CHF. Patient treated for COVID in February. Patient remains positive. His respiratory failure was also suspicious for reinfection of COVID as well. Pulmonology, cardiology, and nephrology were consulted. Patient received IV diuretic therapy with improvement. Patient currently on Lasix and Aldactone. Patient no longer requires oxygen. Fluid intake very well controlled. CT scan shows no pulmonary embolism. CHF identified. At discharge patient will continue with a 1500 cc per day fluid restriction and low-salt diet. Recommend to monitor his weight daily. If his weight increases by more than 5 lb he is to contact cardiology or is PCP for further recommendation. At discharge for his CHF, patient will continue with Lasix 40 mg daily and Aldactone 25 mg daily. Further adjustment in medication can be done by pulmonology or cardiology. Recommend follow up with cardiology within 1 week to follow up this hospitalization. Cardiology plans for echocardiogram and cardiac stress test in the near future. For his COVID, patient will continue with prednisone 20 mg 1 pill twice daily. Patient may she also continue with vitamin-C supplementation and aspirin 81 mg daily. Recommend follow up with pulmonology within 1 week to follow up this hospitalization. Patient will con tinue with CDC guidelines for COVID. Patient to remain isolated at home. Patient to continue with social distancing, hand washing and facemask use. Further instruction on isolation will be addressed by pulmonology at follow-up. 3. Patient with diabetes mellitus type 2 insulin-dependent with hyperglycemia. This has remained stable. At discharge patient will continue with insulin 70/30 30 units subcu twice daily. Recommend to maintain blood sugar less than 140 fasting and less than 200 after meals. Patient will be on steroid treatment for COVID. Adjustment in his medication for better diabetic control during this time may be needed. This can be done with the help of his PCP. 4. Patient with hypertension. Patient also with noted elevation in troponin. Cardiology felt this elevation was related to uncontrolled hypertension/hypertensive crisis. His medication was adjusted. At discharge blood pressure now better controlled. At discharge he will continue with metoprolol 50 mg 1 pill twice daily. Recommend to maintain blood pressure less 150/80. Further adjustment can be done by his PCP. 5. Patient with acute on chronic renal disease stage III. This has remained stable. Nephrology was consulted. Cardiorenal component likely. Continue with above recommendation. Recommend no further use of nonsteroidal anti-inflammatories. Future medications may need to be renally dose. Recommend to recheck lab-BMP in 1-2 weeks to follow up his care. Recommend follow up with nephrology in 1-2 weeks to follow up this hospitalization. Diet: ADA Activity: Ad nikhil Followup: NONE,NONE [Primary Care Provider] - Time spent managing pt's care (in minutes): 55
[2020-06-27] MEDS ORDERED: FUROSEMIDE 40 MG/4 ML VIAL IV SCH (09:00)
[2020-06-27] MEDS ORDERED: POTASSIUM CL SA 10 MEQ TAB PO SCH (09:00)
[2020-06-27] MEDS ORDERED: FUROSEMIDE 40 MG TABLET PO SCH (09:00)
[2020-06-27 09:44] VITALS: TEMP 98.3
== END 2020-06-27 09:40 | disposition home or self-care (01) | DRG 177 ==
LOC: ER 06:39 → ERHOLD 10:56 → 3RD-ICU 11:46
PROVIDERS: ADMIT Family Medicine; ATTEND Family Medicine
PROC: 5A09357 Assistance with Respiratory Ventilation, Less than 24 Consecutive Hours, Continuous Positive Airway Pressure (ICD-10-PCS; principal; 2020-06-25)
DX: U07.1 COVID-19 (principal); J96.21 Acute and chronic respiratory failure with hypoxia; I50.33 Acute on chronic diastolic (congestive) heart failure; J12.89 Other viral pneumonia; I13.0 Hypertensive heart and chronic kidney disease with heart failure and stage 1 through stage 4 chronic kidney disease, or unspecified chronic kidney disease; N17.9 Acute kidney failure, unspecified; I16.9 Hypertensive crisis, unspecified; N18.30 Chronic kidney disease, stage 3 unspecified; E11.22 Type 2 diabetes mellitus with diabetic chronic kidney disease; E11.65 Type 2 diabetes mellitus with hyperglycemia; E87.6 Hypokalemia; R77.8 Other specified abnormalities of plasma proteins; Z79.4 Long term (current) use of insulin; Z90.49 Acquired absence of other specified parts of digestive tract; Z79.52 Long term (current) use of systemic steroids; Z79.899 Other long term (current) drug therapy; Z87.891 Personal history of nicotine dependence; Z79.82 Long term (current) use of aspirin
CPT/HCPCS: 36415; 71045; 71275; 80048; 80061; 81003; 81015; 82550; 82553; 82728; 82947; 83605; 83735; 83880; 84132; 84439; 84443; 84484; 85025; 85379; 85610; 85730; 86140; 87040; 87086; 87088; 87804; 93005; 94660; 94760; 96374; 99291; 99292; J1650; J1815; J1940; J7512; Q9967; U0003

== ENCOUNTER 2020-08-23 07:28 | Day surgery (SDC) | payer OTHER ==
[2020-08-18 12:38] LABS: Absolute Lymphocytes (CBC) 1.8 K/uL (0.7-4.9); Basophils % 0.6 % (0-1.3); Hematocrit 41.1 % (39.6-49.0); Lymphocytes % 24.1 % (15.3-44.8); MPV 9.4 fL (7.6-11.3); RBC Red Blood Cell Count 4.97 M/uL (4.33-5.43)
--- NOTE | 2020-08-18 12:45 | RAD REPORT ---
EXAM DESCRIPTION: Kell Buckner And Verenice (2 Views)08/18/2020 12:34 pm CLINICAL HISTORY: Preop for cardiac catheterization COMPARISON: May 2020 FINDINGS: The lungs appear clear of acute infiltrate. The heart is mildly to moderately enlarged. IMPRESSION: No acute abnormalities displayed
[2020-08-18 12:49] LABS: Protime INR 0.96
--- OUTSIDE RECORDS SUMMARY | 2020-08-23 07:30 | XMS REPORT | Clinical Summary ---
:1950 Author Organization [facility] Address [address] [place] [address] Care Team Providers Name Role Phone Shyam Hernandez Dalegena Primary Care Provider Allergies No Known Allergies [...] Team Description 03/28/2020 Lab Requisition Lab after 08/23/2019 Social History Tobacco Use Types Packs/Day Years Used Date Never Assessed Sex Assigned at Date Recorded Not on file Last Filed Vital Signs Not on file Plan of Treatment Health Maintenance Due Date Last Done Comments COLON CANCER SCREENING COLONOSCOPY 1950 DIABETIC EYE EXAM 1962 URINE MICROALBUMIN 1962 PNEUMOCOCCAL 65+ YRS (1 of 1 - [id number]) 2017 HEMOGLOBIN A1C 09/20/2018 INFLUENZA VACCINE (#1) 2020 Procedures Procedure Name Priority Date/Time Associated Diagnosis Comme nts SARS-COV2/RT-PCR Routine 03/27/2020 10:00 PM Resu lts for this ([facility]) CDT procedure are in the results section. after 08/23/2019 Results SARS-CoV2/RT-PCR ([facility]) (03/27/2020 10:00 PM CDT) SARS-COV2/RT-PCR Positive (AA) Not Detected, [facility] Negative, See [facility] external [facility] for linked test SARS-COV-2 [facility] PERFORMING LAB [facility] Specimen Other - Nasopharyngeal wall structure (b richard structure) Narrative Performed At Results are for the detection of SARS-CoV-2 [facility] RNA. The SARS-CoV-2 RNA is generally [...] the Act. Fact Sheet for Healthcare Providers: https://www.[employer]/Documents/Xpert%20Xpr ess%20SARS%20CoV-2/Fact%20Sheets/320-0872%20S ARS-COV-2%20HEALTHCARE%20PROVIDERS%20FACT%20S HEET.pdf Fact Sheet for Healthcare Patients: https://www.[employer]/Documents/Xpert%20Xpr ess%20SARS%20CoV-2/Fact%20Sheets/579-3801%20S ARS-COV-2%20PATIENT%20FACT%20SHEET.pdf Performing Laboratory: [facility] [address] [place] [address]. [place] [address] Performing Organization Address City/State/Zipcode Phone Number [facility] [address] [place] [address] CENTER after 08/23/2019 Advance Directives For more information, please contact: [phone] Code Status Date Activated Date Inactivated Comments Full Code 09/20/2018 2:46 AM This code status was determined by: Patient
--- OUTSIDE RECORDS SUMMARY | 2020-08-23 07:31 | XMS REPORT | Continuity of Care Document ---
:1950 Author Organization [facility] t Address [address] [place] [address] Care Team Providers Name Role Phone Shyam Hernandez Primary Care Physician TENZIN CHAPARRO Attending Clinician Unavailable TENZIN CHAPARRO Admitting Clinician Unavailable Payers Payer Name Policy Type Policy Effective Date Expiration Date Sour ce Number MEDICAREMEDICARE PART [id number] 2017 I [facility] [id number] 2017-P 00:00:00 - Medical inscription [facility] Problems Condition Condition Condition Status [...] Quantity Comments Source Sex Assigned At [facility] Medications Ordered Filled Start Stop [...] 100 00:00: Units Medic al unit/mL 00 [facility] (70-30) usly 2 injection (two) times daily with breakfast and dinner Inject 60 units after breakfast Inject 30 units after dinner. Procedures Procedure Date / Time Performed Performing Clinician Sourc e SARS-COV2/RT-PCR ([facility] 2020-03-27 22:00:00 [facility] Plan of Care Planned Activity Planned Date Details Comments Source Future Scheduled 2020-04-27 INFLUENZA VACCINE (#1) [facility] Test 00:00:00 [code = INFLUENZA Medical Ce nter VACCINE (#1)] Future Scheduled 2018-09-[address] [facility] 00:00:00 [facility] (procedure) [code = 95083326] Future Scheduled 2017 PNEUMOCOCCAL 65+ YRS [facility] - Test 00:00:00 (1 of 1 - Medical Center [id number] PCV13) [code = PNEUMOCOCCAL 65+ YRS (1 of 1 - [id number] PCV13)] Future Scheduled 1962 DIABETIC EYE EXAM [facility] - Test 00:00:00 [code = DIABETIC EYE Medical Center EXAM] Future Scheduled 1962 Urine screening for [facility] - Test 00:00:00 protein (procedure) [facility] [code = 138243381] Future Scheduled [address] [facility] Test 00:00:00 [facility] (procedure) [code = 874580099] Results Test Description Test Time Test Comments Results Result Comments Source SARS-CoV2/RT-PCR ([facility]) 2020-03-28 14:16:00 Test Item Value Reference Range Interpretation Comme nts SARS-COV2/RT-PCR (test code = [place] [address]-5) Negative, See external report for linked test SARS-COV-2 PERFORMING LAB [facility] (test code = 03674-9) MAXWELL (test code = MAXWELL) Results are [...] of the Act. Fact Sheet for Healthcare Providers:https://www.GeneExcel/Documents/Xpert%20Xpre ss%20SARS%20CoV-2/Fact%20She ets/302-1282%00ZOGS-ENO-7%20 HEALTHCARE%20PROVIDERS%20FAC T%20SHEET.pdf Fact Sheet for Healthcare Patients:https://www.Sociagram.com/Documents/Xpert%20Xpres s%20SARS%20CoV-2/Fact%20Shee ts/3023801%47OUXI-UJF-4%20P ATIENT%20FACT%20SHEET.pdf Performing Laboratory:[place] [address] [place] [address] Lab Interpretation (test code Abnormal = 47422-5) [facility])2020-03-28 14:16:00 Test Item Value Reference Range Interpretation Comments SARS-COV2/RT-PCR (test code Positive Not Detected, Negative, AA = [id number]) See external report for linked test SARS-COV-2 PERFORMING LAB [facility] (test code = 8961706) Results are for the detection of SARS-CoV-2 [...] copies/mL.This SARS CoV-2 test is a rapid, tcre-elyxEI-GFJ test intended for the qualitative detection of [...] 564(g) of the Act.Fact Sheet for Healthcare Providers:https://www.Vubiquity/ Documents/Xpert%20Xpress%20SARS%20CoV-2/Fact%20Sheets/302-3802%65ZSNV-NFV-8%20HE ALTHCARE%20PROVIDERS%20FACT%20SHEET.pdfFact Sheet for Healthcare Patients:https://www.Vubiquity/Documents/Xpert%20Xpress %20SARS%20CoV-2/Fact%20Sheets/302-3801%84UPGA-DUH-1%20PATIENT%20FACT%20SHEET.pdf Performing Laboratory:[facility], [place] [address]DCBZ-XINQISS [id number] 14:00:00 Test Item Value Reference Range Interpretation Comments POC-GLUCOSE METER 172 mg/dL 70-110 H TESTED AT [place] [address] ([facility]) (test code = JUANITASD Mati [facility] 1538) [address] POCT-GLUCOSE [id number] 08:19:00 Test Item Value Reference Range Interpretation Comments POC-GLUCOSE METER 145 mg/dL 70-110 H TESTED AT [place] [address] ([facility]) (test code = [facility] 1538) [address] POCT-GLUCOSE [id number] 21:45:00 Test Item Value Reference Range Interpretation Comments POC-GLUCOSE METER 260 mg/dL 70-110 H TESTED AT [place] [address] ([facility]) (test code = [facility] Mati [facility] 1538) [address] POCT-GLUCOSE [id number] 16:53:00 Test Item Value Reference Range Interpretation Comments POC-GLUCOSE METER 149 mg/dL 70-110 H TESTED AT [place] [address] ([facility]) (test code = [facility] Mati [facility] 1538) [address] POCT-GLUCOSE [id number] 12:19:00 Test Item Value Reference Range Interpretation Comments POC-GLUCOSE METER 141 mg/dL 70-110 H TESTED AT [place] [address] ([facility]) (test code = [facility] 1538) [address]69 POCT-GLUCOSE [id number] 07:38:00 Test Item Value Reference Range Interpretation Comments POC-GLUCOSE METER 127 mg/dL 70-110 H TESTED AT [place] [address] ([facility]) (test code = [facility] 1538) [address] BASIC METABOLIC [id number] 04:59:00 Test Item Value Reference Range Interpretation [...] PATIEN TS. CBC W/PLT COUNT & AUTO [id number] 04:28:00 Test Item Value Reference Range Interpretation [...] PERCENT (BEAKER) (test code = 2801) POCT-GLUCOSE [id number] 22:48:00 Test Item Value Reference Range Interpretation Comments POC-GLUCOSE METER 133 mg/dL 70-110 H TESTED AT [place] [address] ([facility]) (test code = ONIEL Thorne [facility] 1538) [address] POCT-GLUCOSE [id number] 18:05:00 Test Item Value Reference Range Interpretation Comments POC-GLUCOSE METER 167 mg/dL 70-110 H TESTED AT [place] [address] ([facility]) (test code = ONIEL Thorne [facility] 1538) [address] POCT-GLUCOSE [id number] 11:51:00 Test Item Value Reference Range Interpretation Comments POC-GLUCOSE METER 142 mg/dL 70-110 H TESTED AT [place] [address] ([facility]) (test code = ONIEL Thorne [facility] 1538) [address] POCT-GLUCOSE [id number] 07:48:00 Test Item Value Reference Range Interpretation Comments POC-GLUCOSE METER 138 mg/dL 70-110 H TESTED AT [place] [address] ([facility]) (test code = ONIEL Thorne [facility] 1538) [address] BASIC METABOLIC [id number] 06:56:00 Test Item Value Reference Range Interpretation [...] APPLICABLE FOR DIALYSIS PATIEN TS. BASIC METABOLIC [id number] 06:50:00 Test Item Value Reference Range Interpretation [...] PATIEN TS. CBC W/PLT COUNT & AUTO [id number] 06:34:00 Test Item Value Reference Range Interpretation [...] = 2801) CBC W/PLT COUNT & AUTO [id number] 06:33:00 Test Item Value Reference Range Interpretation [...] PERCENT (BEAKER) (test code = 2801) POCT-GLUCOSE [id number] 21:02:00 Test Item Value Reference Range Interpretation Comments POC-GLUCOSE METER 232 mg/dL 70-110 H TESTED AT [place] [address] ([facility]) (test code = ONIEL Thorne [facility] 1538) [address] POCT-GLUCOSE [id number] 17:47:00 Test Item Value Reference Range Interpretation Comments POC-GLUCOSE METER 278 mg/dL 70-110 H TESTED AT [place] [address] ([facility]) (test code = ONIEL Thorne [facility] 1538) [address] POCT-GLUCOSE [id number] 13:08:00 Test Item Value Reference Range Interpretation Comments POC-GLUCOSE METER 307 mg/dL 70-110 H TESTED AT [place] [address] ([facility]) (test code = ONIEL [place] 1538) [address] POCT-GLUCOSE [id number] 09:05:00 Test Item Value Reference Range Interpretation Comments POC-GLUCOSE METER 274 mg/dL 70-110 H TESTED AT [place] [address] ([facility]) (test code = ONIEL [place] 1538) [address]
[2020-08-23] MEDS ORDERED: NA CHLORIDE 0.9% 500 ML ONE (08:40)
[2020-08-23] MEDS ORDERED: HEPARIN 5000 UNIT/ML 1 ML VIAL ONE (14:07)
[2020-08-23] MEDS ORDERED: FENTANYL CITR 100 MCG/2 ML ONE (14:08)
[2020-08-23] MEDS ORDERED: MIDAZOLAM HCL 2 MG/2 ML INJ ONE (14:08)
[2020-08-23] MEDS ORDERED: VERAPAMIL HCL 10 MG/4 ML VIAL IV ONE (14:08)
[2020-08-23] MEDS ORDERED: HEPA 1000U/500MLS 2,000 UNIT/1,000 ML BAG IV ONE (14:09)
[2020-08-23] MEDS ORDERED: HEPARIN 10,000 UNIT/10 ML VIAL IV ONE (14:48)
[2020-08-23] MEDS ORDERED: CLOPIDOGREL 75 MG TABLET ONE ×2 (14:52→15:44)
[2020-08-23] MEDS ORDERED: HEPA 1000U/500MLS 1,000 UNIT/500 ML BAG IV ONE (15:10)
[2020-08-23] MEDS ORDERED: ASPIRIN 325 MG TAB ONE (15:49)
[2020-08-23] MEDS ORDERED: ACETAMINOPHEN 325 MG TABLET PO PRN (16:27)
[2020-08-23] MEDS ORDERED: NITROGLYCERIN 0.4 MG/TAB SL PRN (16:28)
[2020-08-23 19:50] VITALS: O2SAT 97
[2020-08-23 20:35] VITALS: BMI 28.5
[2020-08-23] MEDS: NA CHLORIDE 0.9% 1,000 ML IV SCH (23:08)
--- NOTE | 2020-08-23 23:48 | OP ---
Date of Procedure: 08/23/2020 Surgeon: ADITHYA BISHOP Procedure Performed: 1.Selective coronary angiogram. 2.Percutaneous coronary intervention of severe heavily calcified mid left anterior descending artery disease using a 3.0 x 28 mm Synergy drug-eluting stent, overlapped proximally using 3.5 x 16 mm Syne rgy drug-eluting stent. 3.Percutaneous coronary intervention of severe mid RCA stenosis using 3.0 x 16 mm Synergy drug-eluti ng stent. Indication: Unstable angina with abnormal stress test. Access: Right radial artery 6-Croatian closed with TR band. Complications: None. Anesthesia: Total sedation time was 65 minutes. Description Of Procedure: After risks, benefits, and alternatives were explained, the patient agreed to procedure and signed informed consent. The patient was brought into the cardiac catheterization laboratory, prepped and draped in usual sterile fashion and we accessed right radial artery using ped iatric micropuncture kit and placed a 6-Croatian slender sheath and then we took a 5-Croatian [place] os[address] in the aortic root, engaged left main and right coronary artery, took standard views. Intervention Details: The patient was given systemic heparin to assure ACT level above 250 throughou t the procedure, was loaded with 600 mg of Plavix and 325 mg of aspirin, took a 6-Croatian JR4 guide in to the aortic root, engaged right coronary artery and took short run-through wire across the stenosis . The lesion was pre-dilated using a 2.5 x 50 mm Compliant balloon to high pressure and then took a 3.0 x 16 mm Synergy drug-eluting stent that opposed very well with 0% residual stenosis and YANI-3 fl ow, and we took a 6-Croatian EBU 3.5 guide into the aortic root and engaged left coronary artery and to ok a short run-through wire across the mid LAD stenosis and we took initially a 3.0 x 12 mm Compliant balloon and then a 3.5 x 50 mm NC balloon, and the lesion was heavily calcified; however, high-press ure of the 3.5 balloon opened the lesion very well and left the focal dissection of the artery and we took a 3.5 x 16 mm Synergy drug-eluting stent across the stenosis, deployed successfully, and then t hat did not cover the whole dissected area. We took another 3.0 x 28 mm Synergy drug-eluting stent d istally to it, overlapped those 2 stents and sealed the dissection completely and had an excellent re sults at the end with 0% residual restenosis and YANI-3 flow. We took the wires and the catheter out , and then the sheath was removed and placed TR band with good hemostasis. Findings: 1.Left main is large, normal. 2.LAD has severe heavily calcified lesions in the midportion, status post successful PCI as above an d in the distal portion of the LAD, there is a diffuse disease that is about 60%. 3.Left circumflex, mild luminal irregularities. 4.RCA, severe mid RCA stenosis, status post successful PCI as above. Conclusion: Severe mid LAD and mid RCA stenosis, status post successful PCI to both vessels. Plan: 1.The patient was loaded with Plavix and aspirin. Continue aspirin, Plavix, and high-dose statin. 2.Admit overnight for hydration due to elevated creatinine and the contrast load of almost 100 cc. The patient can be discharged home tomorrow and follow up as outpatient within a month. SR/MODL Voice ID: [id number] Report ID: [id number]
[2020-08-24] MEDS: NA CHLORIDE 0.9% 1,000 ML IV SCH ×2 (03:00→08:55)
[2020-08-24 06:02] LABS: Absolute Lymphocytes (CBC) 1.1 K/uL (0.7-4.9); Basophils % 0.5 % (0-1.3); Lymphocytes % 12.9 % (15.3-44.8); MPV 9.4 fL (7.6-11.3); RBC Red Blood Cell Count 4.55 M/uL (4.33-5.43)
[2020-08-24 06:06] LABS: Magnesium 2.1 mg/dL (1.8-2.4); Potassium 3.8 mmol/L (3.5-5.1)
[2020-08-24] MEDS ORDERED: ASPIRIN 81 MG CHEWABLE TABLET PO SCH (09:00)
[2020-08-24] MEDS ORDERED: CLOPIDOGREL 75 MG TABLET PO SCH (09:00)
[2020-08-24 14:40] VITALS: BP 155/78; TEMP 98.3
--- NOTE | 2020-08-25 11:41 | DS ---
Date of Discharge: 08/24/2020 Admitting Diagnosis: Coronary artery disease. Discharge Diagnosis: Coronary artery disease status post stent to the LAD and RCA by Dr. Bragg. Hospital Course: Overnight, the patient did well, had no complications, has no symptoms. He is in n ormal sinus rhythm. He does not have any chest pain. Access site at the right radial artery basical ly was intact without any hematoma with good radial pulses. The patient will be going home today wit h a diagnosis of CAD status post LAD and RCA stent. He will be going home on aspirin, Plavix, statin , and a beta-dannielle and he will see Dr. Bragg in the next 2 weeks. MOUSTAPHA/NEYDA Voice ID: [id number] Report ID: [id number]
== END 2020-08-24 12:03 | disposition home or self-care (01) ==
LOC: CCL 07:28 → 2ND 15:30 → CCL 08-24 12:03
PROVIDERS: ATTEND Internal Medicine
DX: I25.110 Atherosclerotic heart disease of native coronary artery with unstable angina pectoris (principal); I11.0 Hypertensive heart disease with heart failure; I50.22 Chronic systolic (congestive) heart failure; I70.219 Atherosclerosis of native arteries of extremities with intermittent claudication, unspecified extremity; E11.9 Type 2 diabetes mellitus without complications; Z87.891 Personal history of nicotine dependence; Z20.828 Contact with and (suspected) exposure to other viral communicable diseases
CPT/HCPCS: 93005; 85025 ×2; 80048 ×2; 36415 ×2; 83735; 85610; 82947 ×5; 85347; 85730; 71046; 93454; U0002; C1893; C1725; C9601; C9600; J1644 ×3; J2250; J3010; J7040; J7030

== ENCOUNTER 2021-06-17 02:53 | Inpatient (IN) | payer OTHER ==
[2021-06-17 04:14] LABS: Protime INR 1.02
[2021-06-17 04:22] LABS: Absolute Lymphocytes (CBC) 0.9 K/uL (0.7-4.9); Basophils % 0.9 % (0-1.3); Hematocrit 36.2 % (39.6-49.0); Lymphocytes % 12.8 % (15.3-44.8); MPV 8.9 fL (7.6-11.3); RBC Red Blood Cell Count 4.33 M/uL (4.33-5.43)
[2021-06-17 04:32] LABS: Albumin 3.4 g/dL (3.4-5.0); Bilirubin Direct 0.1 mg/dL (0-0.2); Bilirubin Total 0.5 mg/dL (0.2-1.0); Potassium 3.5 mmol/L (3.5-5.1); Protein, Total 7.2 g/dL (6.4-8.2)
[2021-06-17 04:33] LABS: Troponin (Emerg Dept Use Only) 0.04 ng/mL (0.0-0.045)
--- NOTE | 2021-06-17 04:47 | ER ---
Nurse's Notes [facility] Name: Sylvain Veronica Age: 70 yrs Sex: Male : 1950 Arrival Date: 06/17/2021 Time: 02:58 Bed 16 Private MD: Diagnosis: Chest pain, unspecified;Unspecified combined systolic (congestive) and diastolic (congestive) heart failure;Acute pulmonary edema;Dyspnea, unspecified Presentation: 06/17 03:13 Chief complaint: Patient states: Multiple complaints - left hand numbness since 1500. sj1 SOB in supine position. Prod cough with white phlegm and congestion, chest tightness, generalized abd pain. Denies N/V/D. Covid vax x 2. Coronavirus screen: Vaccine status: Patient reports receiving the 2nd dose of the covid vaccine. Ebola Screen: No symptoms or risks identified at this time. Initial Sepsis Screen: Does the patient meet any 2 criteria? No. Patient's initial sepsis screen is negative. Does the patient have a suspected source of infection? No. Patient's initial sepsis screen is negative. Risk Assessment: Do you want to hurt yourself or someone else? Patient reports no desire to harm self or others. Onset of symptoms was June 16, 2021. 03:13 Method Of Arrival: Ambulatory sj1 03:13 Acuity: JACKIE 3 sj1 Triage Assessment: 03:15 General: Appears in no apparent distress. Behavior is calm, cooperative, appropriate sj1 for age. Pain: Complains of pain in chest and abdomen. Pain: Pain does not radiate. Pain currently is 6 out of 10 on a pain scale. at worst was 10 out of 10 on a pain scale. level that patient reports is acceptable is 0 out of 10 on a pain scale. Quality of pain is described as aching, Pain began 1 day ago. Is continuous, Also complains of shortness of breath. EENT: Reports "throat dryness". Neuro: Level of Consciousness is awake, alert, obeys commands, Oriented to person, place, time, situation. Cardiovascular: Reports shortness of breath, chest tightness. Respiratory: Reports cough that is productive. GI: Reports lower abdominal pain, upper abdominal pain. : No signs and/or symptoms were reported regarding the genitourinary system. Derm: No signs and/or symptoms reported regarding the dermatologic system. Musculoskeletal: No signs and/or symptoms reported regarding the musculoskeletal system. Historical: - Allergies: 03:15 No Known Allergies; sj1 - Home Meds: 03:15 insulin [Active]; Metformin Oral [Active]; sj1 - PMHx: 03:15 Diabetes - IDDM; Hypertensive disorder; sj1 - PSHx: 03:15 Cholecystectomy; sj1 - Immunization history:: Adult Immunizations up to date, Client reports receiving the 2nd dose of the Covid vaccine. - Social history:: Smoking status: Patient denies any tobacco usage or history of. Patient/guardian denies using alcohol, street drugs. - Family history:: not pertinent. - Hospitalizations: : No recent hospitalization is reported. Screenin:20 Abuse screen: Denies threats or abuse. Denies injuries from another. Nutritional sj1 screening: No deficits noted. Tuberculosis screening: No symptoms or risk factors identified. Fall Risk None identified. Assessment: 03:20 General: Appears uncomfortable, Behavior is calm, cooperative. Pain: Complains of pain cc4 in abdomen Pain does not radiate. Pain currently is 4 out of 10 on a pain scale. Quality of pain is described as crampy. Neuro: No deficits noted. Level of Consciousness is awake, alert, obeys commands, Oriented to person, place, time, situation, Director Utilization Management are equal bilaterally. Cardiovascular: Heart tones S1 S2 Capillary refill < 3 seconds Rhythm is sinus tachycardia. Respiratory: No deficits noted. Airway is patent Breath sounds are clear bilaterally. : No signs and/or symptoms were reported regarding the genitourinary system. EENT: Nares are clear c/o nasal congestion; no nasal discharge noted.. Derm: No deficits noted. Skin is intact. Musculoskeletal: No deficits noted. Range of motion: intact in all extremities. 03:20 GI: No deficits noted. Abdomen is non-distended, Bowel sounds present X 4 quads. cc4 03:20 GI: Abd is soft and non tender. cc4 03:25 Reassessment: EKG done; Dr. Blake in to see with orders recieved. cc4 03:45 Reassessment: Patient appears in no apparent distress at this time. # 20 g saline lock cc4 inserted left medial wrist x1 attempt with no difficulty; robyn well; blood drawn + blood cultures x 1 set left wrist \\T\\ sent to lab. 04:05 Reassessment: Patient appears in no apparent distress at this time. 2nd set of blood cc4 cultures drawn \\T\\ sent to lab. 05:10 Reassessment: Patient appears in no apparent distress at this time. Medicated as cc4 ordered; BP decreasing 150/100; voices no complaints; Silverio Fan NP in to see. Vital Signs: 03:03 BP 162 / 107; Pulse 120; Resp 20; Temp 97.9; Pulse Ox 96% on R/A; cc4 03:13 BP 162 / 107 RA Sitting (auto/reg); Pulse 119; Resp 18 S; Temp 97.9(O); Pulse Ox 96% on sj1 R/A; Weight 88.45 kg (R); Height 5 ft. 10 in. (177.80 cm); Pain 6/10; 03:39 BP 150 / 81; Pulse 102; Resp 20; Pulse Ox 96% on R/A; cc4 04:00 BP 143 / 82; Pulse 93; Resp 20; Pulse Ox 95% on R/A; cc4 04:30 BP 156 / 97; Pulse 103; Resp 24; Pulse Ox 97% on R/A; cc4 05:00 BP 150 / 100; Pulse 101; Resp 22; Pulse Ox 99% on R/A; cc4 05:30 BP 161 / 102; Pulse 98; Resp 20; Pulse Ox 99% on R/A; cc4 06:30 BP 164 / 94; Pulse 91; Resp 22; Temp 97.7(O); Pulse Ox 99% on R/A; cc4 07:15 BP 132 / 96; Pulse 81; Resp 20; Pulse Ox 95% ; cc4 03:13 Body Mass Index 27.98 (88.45 kg, 177.80 cm) [facility] ED Course: 02:58 Patient arrived in ED. bp1 03:15 Triage completed. sj1 03:15 Arm band placed on Patient placed in an exam room, on a stretcher. sj1 03:20 Patient has correct armband on for positive identification. Bed in low position. Call [facility] light in reach. Side rails up X 1. 03:27 Endy Blake MD is Attending Physician. rn 03:39 Char Wharton RN is Primary Nurse. cc4 03:40 XRAY Chest (1 view) Sent. cc4 03:46 EKG done, by ED staff. cs9 03:55 COVID swab sent to lab. cs9 03:55 Flu and/or RSV swab sent to lab. cs9 04:08 LFT's Sent. cc4 04:08 Magnesium Sent. cc4 04:08 NT PRO-BNP Sent. cc4 04:08 Troponin (emerg Dept Use Only) Sent. cc4 04:09 Basic Metabolic Panel Sent. cc4 04:09 CBC with Diff Sent. cc4 04:09 PT-INR Sent. cc4 04:09 Blood Culture Adult (2) Sent. cc4 04:09 Procalcitonin Sent. cc4 04:09 Basic Metabolic Panel Sent. cc4 04:09 Magnesium Sent. cc4 04:10 Liver (Hepatic) Function Sent. cc4 04:10 CBC with Automated Diff Sent. cc4 04:10 NT PRO-BNP Sent. cc4 04:10 Troponin (Emerg Dept Use Only) Sent. cc4 04:10 SARS-COV-2 RT PCR Sent. cc4 04:10 Flu Sent. cc4 04:23 XRAY Chest (1 view) In Process Unspecified. EDMS 04:46 Walter Pires is Hospitalizing Provider. rn 07:15 No provider procedures requiring assistance completed. cc4 Administered Medications: 05:10 Drug: Aspirin Chewable Tablet 324 mg Route: PO; cc4 06:30 Follow up: Response: No adverse reaction cc4 05:10 Drug: Lasix (furosemide) 40 mg Route: IVP; Site: left wrist; cc4 06:30 Follow up: Urine output 1500 ml; Response: No adverse reaction; Blood pressure is cc4 lowered Output: 06:30 Urine: 1500ml; Total: 1500ml. cc4 Outcome: 04:47 Decision to Hospitalize by Provider. rn 07:17 Admitted to Med/surg accompanied by tech, via wheelchair, room 216, Report called to blanka Marshall RN 07:17 Condition: improved 07:17 Instructed on the need for admit, Demonstrated understanding of instructions. 07:33 Patient left the ED. mh5 Signatures: Dispatcher [employer] EDMS Endy Blake MD MD rn Martinez, Maria 5 Deb Wolff Christie, RN RN cc4 Barbra Fan RN RN 1 Izzy Dhillon cs9 Corrections: (The following items were deleted from the chart) 05:06 03:20 GI: sj1 cc4 05:07 03:20 GI: Bowel sounds present X 4 quads. cc4 cc4
--- NOTE | 2021-06-17 04:47 | EDPHYS ---
Physician Documentation [facility] Name: Sylvain Veronica Age: 70 yrs Sex: Male : 1950 Arrival Date: 06/17/2021 Time: 02:58 Bed 16 Private MD: ED Physician Endy Blake HPI: 06/17 03:39 This 70 yrs old Male presents to ER via Ambulatory with complaints of Chest rn pain, cough. 03:40 The patient or guardian reports chest pain that is located primarily in the substernal rn area. Onset: last night. The pain does not radiate. Associated signs and symptoms: Pertinent positives: cough, shortness of breath, Pertinent negatives: abdominal pain, palpitations, syncope, vomiting. The chest pain is described as aching. Duration: The patient or guardian reports a single episode, that is still ongoing. Modifying factors: The symptoms are alleviated by nothing. the symptoms are aggravated by cough. Severity of pain: At its worst the pain was mild in the emergency department the pain is unchanged. The patient has not experienced similar symptoms in the past. The patient has not recently seen a physician. Patient reports onset of cough, chest pain, not feeling right since last night around 9:30 PM. Not able to fall asleep and discomfort has been constant. Reports nonproductive cough and mild shortness of breath. No diaphoresis or nausea/vomiting. Denies abdominal pain but reports that feels like is going to have an upset stomach. Denies any vomiting or diarrhea. Denies any trauma. Also complains of numbness to the left second digit but no weakness. States chronic numbness to bilateral feet. Patient is a diabetic. Covid vaccinated.. Historical: - Allergies: 03:15 No Known Allergies; sj1 - Home Meds: 03:15 insulin [Active]; Metformin Oral [Active]; sj1 - PMHx: 03:15 Diabetes - IDDM; Hypertensive disorder; sj1 - PSHx: 03:15 Cholecystectomy; sj1 - Immunization history:: Adult Immunizations up to date, Client reports receiving the 2nd dose of the Covid vaccine. - Social history:: Smoking status: Patient denies any tobacco usage or history of. Patient/guardian denies using alcohol, street drugs. - Family history:: not pertinent. - Hospitalizations: : No recent hospitalization is reported. ROS: 03:40 Constitutional: Negative for fever, chills, and weight loss, Eyes: Negative for injury, rn pain, redness, and discharge, ENT: Negative for injury, pain, and discharge, Neck: Negative for injury, pain, and swelling, Cardiovascular: Positive for chest pain Respiratory: Positive for cough and shortness of breath Abdomen/GI: Negative for abdominal pain, nausea, vomiting, diarrhea, and constipation, Back: Negative for injury and pain, : Negative for injury, bleeding, discharge, and swelling, MS/Extremity: Negative for injury and deformity, Skin: Negative for injury, rash, and discoloration, Neuro: Negative for headache, weakness, numbness, tingling, and seizure. Exam: 03:40 Constitutional: This is a well developed, well nourished patient who is awake, alert, rn and in no acute distress. Head/Face: Normocephalic, atraumatic. Eyes: Pupils equal round and reactive to light, extra-ocular motions intact. Lids and lashes normal. Conjunctiva and sclera are non-icteric and not injected. Cornea within normal limits. Periorbital areas with no swelling, redness, or edema. Cardiovascular: Tachycardic, regular. No pulse deficits Respiratory: Speaking full sentences, unlabored. No increased work of breathing, no retractions or nasal flaring. Abdomen/GI: Soft, nontender, no peritoneal signs, no guarding Skin: Warm, dry MS/ Extremity: Pulses equal, no cyanosis. Neurovascular intact. Full, normal range of motion. Equal circumference. Normal strength of bilateral extremities. Mild paresthesias left second digit with full range of motion and strength. Neuro: Awake and alert, GCS 15, oriented to person, place, time, and situation. Cranial nerves II-XII grossly intact. Motor strength 5/5 in all extremities. Sensory grossly intact. Cerebellar exam normal. 03:47 ECG was reviewed by the Attending Physician. rn Vital Signs: 03:03 BP 162 / 107; Pulse 120; Resp 20; Temp 97.9; Pulse Ox 96% on R/A; cc4 03:13 BP 162 / 107 RA Sitting (auto/reg); Pulse 119; Resp 18 S; Temp 97.9(O); Pulse Ox 96% on sj1 R/A; Weight 88.45 kg (R); Height 5 ft. 10 in. (177.80 cm); Pain 6/10; 03:39 BP 150 / 81; Pulse 102; Resp 20; Pulse Ox 96% on R/A; cc4 04:00 BP 143 / 82; Pulse 93; Resp 20; Pulse Ox 95% on R/A; cc4 04:30 BP 156 / 97; Pulse 103; Resp 24; Pulse Ox 97% on R/A; cc4 05:00 BP 150 / 100; Pulse 101; Resp 22; Pulse Ox 99% on R/A; cc4 05:30 BP 161 / 102; Pulse 98; Resp 20; Pulse Ox 99% on R/A; cc4 06:30 BP 164 / 94; Pulse 91; Resp 22; Temp 97.7(O); Pulse Ox 99% on R/A; cc4 07:15 BP 132 / 96; Pulse 81; Resp 20; Pulse Ox 95% ; cc4 03:13 Body Mass Index 27.98 (88.45 kg, 177.80 cm) sj1 MDM: 03:28 Patient medically screened. rn 04:43 Differential diagnosis: acute myocardial infarction, acute pericarditis, coronary rn artery disease congestive heart failure costochondritis, pericarditis, pneumonia, pneumothorax, stable angina. 04:43 HEART Score: History: Moderately Suspicious (1), ECG: Normal (0), Age: > or = 65 years rn (2), Risk Factors: 1 or 2 risk factors (1), Troponin: < or = 1 x Normal Limit (0), Total Score = 4. The patient was given aspirin in the Emergency Department. Data reviewed: vital signs, nurses notes, lab test result(s), EKG, radiologic studies, plain films, and as a result, I will admit patient. Data interpreted: air sampling and monitoring: rate is 93 beats/min, rhythm is normal sinus rhythm, regular, with no ectopy, Interpretation: normal rate, normal rhythm, Pulse oximetry: on room air is 95 %. Interpretation: acceptable. Test interpretation: by ED physician or midlevel provider: ECG, plain radiologic studies, X-ray with bilateral pleural effusions and pulmonary edema, negative for pneumothorax. Counseling: I had a detailed discussion with the patient and/or guardian regarding: the historical points, exam findings, and any diagnostic results supporting the discharge/admit diagnosis, lab results, radiology results, the need for further work-up and treatment in the hospital. Response to treatment: the patient's symptoms have mildly improved after treatment, and as a result, I will admit patient. Admission orders: after a detailed discussion of the patient's condition and case, the admit orders are written by me. ED course: Negative troponin, no ischemia on ECG. X-ray and BNP more consistent with CHF and pulmonary edema. Patient also reports shortness of breath while supine and white sputum. Patient afebrile. Covid vaccinated. Covid pending but admitting to hospitalist service for diuresis and further cardiac evaluation. 06/17 03:36 Order name: Basic Metabolic Panel 06/17 03:36 Order name: CBC with Diff 06/17 03:36 Order name: LFT's 06/17 03:36 Order name: Magnesium 06/17 03:36 Order name: NT PRO-BNP 06/17 03:36 Order name: PT-INR; Complete Time: 04:41 06/17 03:36 Order name: Troponin (emerg Dept Use Only) 06/17 03:36 Order name: Flu rn 06/17 03:36 Order name: Blood Culture Adult (2) 06/17 03:36 Order name: Procalcitonin 06/17 03:37 Order name: Basic Metabolic Panel; Complete Time: 04:41 EDMS 06/17 03:37 Order name: CBC with Automated Diff; Complete Time: 04:41 EDNY 06/17 03:37 Order name: Liver (Hepatic) Function; Complete Time: 04:41 EDNY 06/17 03:36 Order name: XRAY Chest (1 view) 06/17 03:36 Order name: EKG; Complete Time: 03:37 06/17 03:36 Order name: Cardiac monitoring; Complete Time: 03:40 06/17 03:36 Order name: EKG - Nurse/Tech; Complete Time: 03:40 06/17 03:36 Order name: IV Saline Lock; Complete Time: 04:09 06/17 03:36 Order name: Labs collected and sent; Complete Time: 04:09 06/17 03:36 Order name: O2 Per Protocol 06/17 03:36 Order name: O2 Sat Monitoring; Complete Time: 03:40 06/17 03:37 Order name: Magnesium; Complete Time: 04:41 EDMS 06/17 03:37 Order name: NT PRO-BNP; Complete Time: 04:41 EDMS 06/17 03:37 Order name: Troponin (Emerg Dept Use Only); Complete Time: 04:41 EDMS 06/17 04:08 Order name: SARS-COV-2 RT PCR EDMS EC:47 Rate is 103 beats/min. Rhythm is regular. QRS [place] is Normal. DC interval is normal. rn QRS interval is normal. QT interval is normal. No Q waves. T waves are Normal. No ST changes noted. Clinical impression: Sinus tachycardia. Interpreted by me. Reviewed by me. Administered Medications: 05:10 Drug: Aspirin Chewable Tablet 324 mg Route: PO; cc4 06:30 Follow up: Response: No adverse reaction cc4 05:10 Drug: Lasix (furosemide) 40 mg Route: IVP; Site: left wrist; cc4 06:30 Follow up: Urine output 1500 ml; Response: No adverse reaction; Blood pressure is cc4 lowered Disposition Summary: 06/17/21 04:47 Hospitalization Ordered Hospitalization Status: Inpatient Admission rn Provider: Walter Pires rn Location: Telemetry/MedSurg (Inpatient) rn Condition: Stable rn Problem: new rn Symptoms: have improved rn Bed/Room Type: Standard rn Room Assignment: 216(06/17/21 06:20) mw Diagnosis - Chest pain, unspecified rn - Unspecified combined systolic (congestive) and diastolic (congestive) heart failure rn - Acute pulmonary edema rn - Dyspnea, unspecified rn Forms: - Medication Reconciliation Form rn - SBAR form rn Signatures: Dispatcher [facility] EDNY Valerie Sanchez RN RN mw Nieto, Roman, MD MD rn Cooper, Christie, RN RN cc4 Barbra Fan RN RN sj1 Corrections: (The following items were deleted from the chart) 04:08 03:37 CORONAVIRUS+ ordered. EDNY EDMS 06:20 04:47 rn levi
[2021-06-17] MEDS ORDERED: ASPIRIN 81 MG CHEWABLE TABLET ONE (05:39)
[2021-06-17] MEDS ORDERED: FUROSEMIDE 40 MG/4 ML VIAL ONE (05:39)
--- NOTE | 2021-06-17 05:47 | P.HP ---
Certification for Inpatient Patient admitted to: Observation With expected LOS: <2 Midnights Patient will require the following post-hospital care: None Practitioner: I am a practitioner with admitting privileges, knowledge of patient current condition, hospital course, and medical plan of care. Services: Services provided to patient in accordance with Admission requirements found in Title 42 Section 412.3 of the Code of Federal Regulations <Silverio Fan - Last Filed: 06/17/21 05:41> Patient History Date of Service: 06/17/21 Reason for admission: CHF exacerbation History of Present Illness: Mr. Veronica is a 70 yo M with DM, HTN, CAD and CHF who presents with chest tightness and SOB beginning last night while he was sleeping. He also reports numbness in his left hand. The pain lasted for a few hours, and he describes it as very light. Reports orthopnea, PND, neuropathy, cough, diaphoresis. Denies edema, lightheadedness and dizziness. BUN 27 Cr 1.46 GFR 48 Glu 213 BNP 2647 procal 0.08. Trop negative. - Past Medical/Surgical History Diabetic: Yes -: Diabetes -: Htn -: CHF -: CAD -: Cholecystectomy -: 2 stents Psychosocial/ Personal History: Patient is . Lives at home. - Family History Father -: Diabetes Mother -: Diabetes - Social History Smoking Status: Never smoker Alcohol use: No CD- Drugs: No Caffeine use: Yes Place of Residence: Home <Silverio Fan - Last Filed: 06/17/21 05:41> Date of Service: 06/17/21 <Karina Kemp - Last Filed: 06/20/21 02:49> Allergies No Known Allergies Allergy (Verified 08/23/20 20:31) Home Medications: Clopidogrel Bisulfate [Plavix*] 75 mg PO DAILY #30 tablet 08/24/20 Simvastatin [Zocor] 40 mg PO DAILY #30 tablet 08/24/20 Metoprolol Tartrate [Lopressor*] 25 mg PO BID 06/17/21 Furosemide [Lasix] 40 mg PO DAILY #30 tab 06/18/21 Potassium Chloride [K-Dur] 10 meq PO DAILY #30 tab.er.prt 06/18/21 Valsartan [Diovan] 80 mg PO DAILY #30 tablet 06/18/21 Review of Systems 10-point ROS is otherwise unremarkable General: Sweats, As per HPI Eyes: Unremarkable ENT: Unremarkable Respiratory: Cough, Shortness of Breath, SOB with Excertion Cardiovascular: Chest Pain, Orthopnea, Paroxysmal Noc. Dyspnea Gastrointestinal: Unremarkable Genitourinary: Unremarkable Musculoskeletal: Unremarkable Integumentary: Unremarkable Neurological: Numbness, As per HPI Lymphatics: Unremarkable <Silverio Fan - Last Filed: 06/17/21 05:41> Physical Examination - Physical Exam General: Alert, In no apparent distress HEENT: Atraumatic, PERRLA, Mucous membr. moist/pink, EOMI, Sclerae nonicteric Neck: Supple, 2+ carotid pulse no bruit, No LAD, Without JVD or thyroid abnormality Respiratory: Normal air movement, Crackles/rales Cardiovascular: Regular rate/rhythm, Normal S1 S2 Gastrointestinal: Normal bowel sounds, No tenderness Musculoskeletal: No tenderness Integumentary: No rashes Neurological: Normal speech, Normal strength at 5/5 x4 extr, Normal tone, Normal affect Lymphatics: No axilla or inguinal lymphadenopathy - Studies Laboratory Data (last 24 hrs) 06/17/21 03:50: PT 11.7, INR 1.02 06/17/21 03:50: WBC 7.30, Hgb 12.2 L, Hct 36.2 L, Plt Count 185 06/17/21 03:50: Sodium 142, Potassium 3.5, BUN 27 H, Creatinine 1.46 H, Glucose 213 H, Magnesium 2.0, Total Bilirubin 0.5, AST 12 L, ALT 21, Alkaline Ph osphatase 116 Microbiology Data (last 24 hrs): 06/17/21 03:50 Nasopharnyx Influenza Type A Antigen Screen - Final 06/17/21 03:50 Nasopharnyx Influenza Type B Antigen Screen - Final <Silverio Fan - Last Filed: 06/17/21 05:41> Assessment and Plan - Problems (Diagnosis) (1) HTN (hypertension) Status: Chronic Qualifiers: Hypertension type: primary hypertension Qualified Code(s): I10 - Essential (primary) hypertension (2) CHF exacerbation Status: Acute Qualifiers: Heart failure type: unspecified Qualified Code(s): I50.9 - Heart failure, unspecified (3) SANTOS (acute kidney injury) Status: Acute (4) CAD (coronary artery disease) Status: Chronic Qualifiers: Coronary Disease-Associated Artery/Lesion type: pala artery [place] vs. 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 insulin use: with termite control service representative use Diabetes mellitus complication status: with kidney complications Diabetes mellitus complication detail: with chronic kidney disease Chronic kidney disease stage: stage 3 (moderate) Chronic kidney disease stage 3 subtype: stage 3a (GFR 45- 59) Qualified Code(s): E11.22 - Type 2 diabetes mellitus with diabetic chronic kidney disease; N18.31 - Chronic kidney disease, stage 3a; 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 - Plan on tele, ECHO pending trend troponins, repeat EKG daily weights, fluid restriction, IV lasix, daily ASA A1c pending, sliding scale insulin and accuchcecks reconcile and continue home medications hydralazine PRN for BP spikes DVT ppx Discharge Plan: Home Plan to discharge in: 24 Hours - Advance Directives Does patient have a Living Will: No Does patient have a Durable POA for Healthcare: No - Code Status/Comfort Care Code Status Assessed: Yes (full code ) Critical Care: No Time Spent Managing Pts Care (In Minutes): 70 <Silverio Fan - Last Filed: 06/17/21 05:41> Date of Service: 06/17/21 Subjective: Agree with HPI as mentioned above Physical Examination: Vitals: Afebrile vital signs are stable Physical exam: Cardiovascular: Within normal limits. Lungs: Within normal limits Abdomen: Within normal limits Neuro: Awake, alert, oriented to person place and time Assessment: 1. Acute CHF exacerbation, diastolic heart failure/heart failure with preserved ejection fraction Plan: 1. Echocardiogram as an outpatient 2. Continue Diovan 3. Continue low-dose beta-dannielle 4. Cardiology consultation 5. Aggressive diuresis 6. Strict I's and O's 7. Repeat CXR 8. Daily weights 9. Education regarding diet and treatment of congestive heart failure <Karina Kemp - Last Filed: 06/20/21 02:49>
[2021-06-17] MEDS ORDERED: ONDANSETRON 4 MG/2 ML VIAL IV PRN (07:51)
[2021-06-17] MEDS ORDERED: ACETAMINOPHEN 500 MG TAB PO PRN (07:51)
[2021-06-17] MEDS: ASPIRIN EC 81 MG TAB PO SCH (09:45)
[2021-06-17] MEDS: ENOXAPARIN 40 MG/0.4 ML SQ SCH (09:45)
[2021-06-17] MEDS: INSULIN -REGULAR HUMAN 50 UNIT/0.5 ML ML SQ SCH ×4 (09:45→20:21)
[2021-06-17 10:22] VITALS: BMI 27.1
--- NOTE | 2021-06-17 15:06 | RAD REPORT ---
EXAM DESCRIPTION: RAD - Chest Single View - 06/17/2021 4:23 am CLINICAL HISTORY: Chest pain;Cough COMPARISON: None. FINDINGS: Single frontal view of the chest. Tubes and lines: Leads overlie the chest. Cardiomediastinal silhouette: Cardiomegaly. Lungs: Pulmonary vascular congestion. Bilateral interstitial opacities. Possible small pleural effusi ons. No pneumothorax. Bones: Degenerative change of the spine and shoulders. Upper abdomen: No acute abnormality identified. IMPRESSION: 1. Cardiomegaly with pulmonary vascular congestion and possible interstitial edema. 2. Possible small pleural effusions. Electronically signed by: Cristian Tavares 06/17/2021 4:33 AM CDT Due to temporary technical issues with the PACS/Fluency reporting system, reports are being signed by the in house radiologists without review as a courtesy to insure prompt reporting. The interpreting radiologist is fully responsible for the content of the report.
[2021-06-17] MEDS: FUROSEMIDE 40 MG/4 ML VIAL IV SCH (16:04)
[2021-06-18 05:37] LABS: Absolute Lymphocytes (CBC) 2.2 K/uL (0.7-4.9); Basophils % 0.5 % (0-1.3); Hematocrit 37.5 % (39.6-49.0); Lymphocytes % 35.1 % (15.3-44.8); MPV 8.8 fL (7.6-11.3); RBC Red Blood Cell Count 4.51 M/uL (4.33-5.43)
[2021-06-18 06:14] LABS: Albumin 3.5 g/dL (3.4-5.0); Bilirubin Total 0.6 mg/dL (0.2-1.0); Magnesium 2.3 mg/dL (1.8-2.4); Phosphorus 3.8 mg/dL (2.5-4.9); Potassium 3.6 mmol/L (3.5-5.1); Protein, Total 7.4 g/dL (6.4-8.2); Thyroid Stimulating Hormone 0.657 uIU/mL (0.360-3.740)
[2021-06-18] MEDS: INSULIN -REGULAR HUMAN 50 UNIT/0.5 ML ML SQ SCH (07:30)
[2021-06-18 08:24] LABS: Urine Appearance CLEAR (Clear); Urine Bilirubin NEGATIVE (Negative); Urine Blood TRACE (Negative); Urine Color YELLOW (Yellow); Urine Glucose TRACE (Negative); Urine Protein 3+ (Negative); Urine Specific Gravity 1.025 (1.005-1.030); Urine pH 5.5 (5.0-7.0)
[2021-06-18] MEDS ORDERED: POTASSIUM CL SA 10 MEQ TAB PO ONE (09:00)
[2021-06-18] MEDS: ASPIRIN EC 81 MG TAB PO SCH (09:02)
[2021-06-18] MEDS: ENOXAPARIN 40 MG/0.4 ML SQ SCH (09:02)
[2021-06-18] MEDS: FUROSEMIDE 40 MG/4 ML VIAL IV SCH (09:03)
[2021-06-18 09:11] LABS: Urine Microscopic Reflex ORDER UMIC
[2021-06-18 09:14] LABS: Urine Bacteria <20 /HPF (NONE SEEN); Urine RBC <5 /HPF (NONE SEEN); Urine Urothelial Cells <5 /HPF (NONE SEEN)
--- NOTE | 2021-06-18 09:23 | RAD REPORT ---
EXAM DESCRIPTION: RAD - Chest Single View - 06/18/2021 9:11 am CLINICAL HISTORY: pneumonia COMPARISON: Chest Single View dated 06/17/2021; Chest Pa And Lat (2 Views) dated 08/18/2020; Chest S yolanda View dated 06/25/2020; Chest Single View dated 03/27/2020 FINDINGS: Lines: None. Lungs: No evidence of edema or pneumonia. Pleural: No significant pleural effusions or pneumothorax. Cardiac: The heart size is within normal limits. Bones: No acute fractures. Other: IMPRESSION: No acute cardiopulmonary disease.
[2021-06-18 09:27] VITALS: O2SAT 96
[2021-06-18 09:59] VITALS: BP 124/78; TEMP 99.4
--- NOTE | 2021-06-20 02:48 | P.DS ---
Discharge Date: 06/18/21 Disposition: ROUTINE DISCHARGE Discharge Condition: GOOD Reason for Admission: CHF exacerbation Brief History of Present Illness: Mr. Veronica is a 70 yo M with DM, HTN, CAD and CHF who presents with chest tightness and SOB beginning last night while he was sleeping. He also reports numbness in his left hand. The pain lasted for a few hours, and he describes it as very light. Reports orthopnea, PND, neuropathy, cough, diaphoresis. Denies edema, lightheadedness and dizziness. BUN 27 Cr 1.46 GFR 48 Glu 213 BNP 2647 procal 0.08. Trop negative. Hospital Course: Patient was diuresed and clinically is doing much better. Patient follow with Cardiology as an outpatient. Continue with outpatient Lasix. At this time, patient is stable for discharge. Vital Signs/Physical Exam: Temp Pulse Resp BP Pulse Ox 99.4 F 87 16 124/78 96 06/18/21 08:00 06/18/21 08:00 06/18/21 08:00 06/18/21 08:00 06/18/21 08:00 General: Alert, In no apparent distress, Oriented x3 Laboratory Data at Discharge: WBC 6.20 K/uL (4.3-10.9) D 06/18/21 04:51 Hgb 12.8 g/dL (13.6-17.9) L 06/18/21 04:51 Hct 37.5 % (39.6-49.0) L 06/18/21 04:51 Plt Count 204 K/uL (152-406) 06/18/21 04:51 PT 11.7 SECONDS (9.5-12.5) 06/17/21 03:50 INR 1.02 06/17/21 03:50 Sodium 143 mmol/L (136-145) 06/18/21 04:51 Potassium 3.6 mmol/L (3.5-5.1) 06/18/21 04:51 BUN 30 mg/dL (7-18) H 06/18/21 04:51 Creatinine 1.55 mg/dL (0.55-1.3) H 06/18/21 04:51 Glucose 133 mg/dL (74-106) H 06/18/21 04:51 Phosphorus 3.8 mg/dL (2.5-4.9) 06/18/21 04:51 Magnesium 2.3 mg/dL (1.8-2.4) 06/18/21 04:51 Total Bilirubin 0.6 mg/dL (0.2-1.0) 06/18/21 04:51 AST 18 U/L (15-37) 06/18/21 04:51 ALT 28 U/L (12-78) 06/18/21 04:51 Alkaline Phosphatase 107 U/L (45-117) 06/18/21 04:51 Troponin I 0.05 ng/mL (0.0-0.045) H 06/17/21 13:02 Triglycerides 216 mg/dL (<150) H 06/18/21 04:51 Cholesterol 170 mg/dL (<200) 06/18/21 04:51 HDL Cholesterol 44 mg/dL (40-60) 06/18/21 04:51 Cholesterol/HDL Ratio 3.86 06/18/21 04:51 Home Medications: Clopidogrel Bisulfate [Plavix*] 75 mg PO DAILY #30 tablet 08/24/20 Simvastatin [Zocor] 40 mg PO DAILY #30 tablet 08/24/20 Metoprolol Tartrate [Lopressor*] 25 mg PO BID 06/17/21 Furosemide [Lasix] 40 mg PO DAILY #30 tab 06/18/21 Potassium Chloride [K-Dur] 10 meq PO DAILY #30 tab.er.prt 06/18/21 Valsartan [Diovan] 80 mg PO DAILY #30 tablet 06/18/21 New Medications: Valsartan [Diovan] 80 mg PO DAILY #30 tablet Potassium Chloride [K-Dur] 10 meq PO DAILY #30 tab.er.prt Furosemide [Lasix] 40 mg PO DAILY #30 tab Physician Discharge Instructions: OK TO DC IV AND DC HOME FOLLOW-UP WITH PRIMARY CARE PROVIDER IN 1-2 WEEKS FOLLOW-UP WITH CARDIOLOGY IN 1-2 WEEKS RETURN TO THE ER IF symptoms worsen CALL or TEXT DR. AUGUSTIN AT [phone] IF ANY QUESTIONS REGARDING HOSPITAL STAY. PLEASE CALL THE FLOOR AT [phone] IF ANY MEDICATION OR NURSING QUESTIONS. Diet: AHA Activity: Fall precautions Followup: Rob Mendoza MD [ACTIVE - CAN ADMIT] - Austen Mott MD [Primary Care Provider] - Time spent managing pt's care (in minutes): 35
--- NOTE | 2021-06-20 07:51 | ECHO ---
HEIGHT: 5 ft 10 in WEIGHT: 189 lb 4 oz DATE OF STUDY: 06/17/[address]: Silverio Fan 2-DIMENSIONAL: YES M.MODE: YES DOPPLER: YES COLOR FLOW: YES TDS: NO PORTABLE: NO DEFINITY: NO BUBBLE STUDY: NO DIAGNOSIS: PULMONARY EDEMA CARDIAC HISTORY: CATHERIZATION: YES SURGERY: NO PROSTHETIC VALVE: NO PACEMAKER: NO MEASUREMENTS (cm) DIASTOLIC (NORMALS) SYSTOLIC (NORMALS) IVSd 1.2 (0.6-1.2) LA Diam 2.7 (1.9-4.0) LVEF 40-45% LVIDd 6.3 (3.5-5.7) LVIDs 5.2 (2.0-3.5) %FS 18% LVPWd 1.3 (0.6-1.2) Ao Diam 3.2 (2.0-3.7) 2 DIMENSIONAL ASSESSMENT: RIGHT ATRIUM: NORMAL LEFT ATRIUM: NORMAL RIGHT VENTRICLE: NORMAL LEFT VENTRICLE: DEPRESSED TRICUSPID VALVE: NORMAL MITRAL VALVE: PULMONIC VALVE: NORMAL AORTIC VALVE: PERICARDIAL EFFUSION: NONE AORTIC ROOT: NORMAL LEFT VENTRICULAR WALL MOTION: ANTEROSEPTAL HYPOKINESIS. DOPPLER/COLOR FLOW: SEE BELOW. COMMENTS: MILDLY DEPRESSED LEFT VENTRICULAR EJECTION FRACTION 40-45%. ANTEROSEPTAL HYPOKINESIS. MILD MITRAL AND AORTIC REGURGITATION. TECHNOLOGIST: Patricia HERNANDEZ
== END 2021-06-18 13:31 | disposition home or self-care (01) | DRG 291 ==
LOC: ER 02:53 → ERHOLD 04:58 → 2ND 06:37
PROVIDERS: ADMIT Hospitalist; ATTEND Hospitalist
DX: I11.0 Hypertensive heart disease with heart failure (principal); I50.33 Acute on chronic diastolic (congestive) heart failure; N17.9 Acute kidney failure, unspecified; I25.10 Atherosclerotic heart disease of native coronary artery without angina pectoris; E11.9 Type 2 diabetes mellitus without complications; Z95.5 Presence of coronary angioplasty implant and graft; Z20.822 Contact with and (suspected) exposure to COVID-19
CPT/HCPCS: 36415; 71045; 80048; 80053; 80061; 80076; 81003; 81015; 82947; 83036; 83735; 83880; 84100; 84145; 84439; 84443; 84484; 85025; 85610; 87040; 87804; 93005; 93306; 94760; 96374; 99285; J1650; J1940; U0003

== ENCOUNTER 2022-05-20 03:41 | Inpatient (IN) | payer OTHER ==
--- OUTSIDE RECORDS SUMMARY | 2022-05-20 03:46 | XMS REPORT | Continuity of Care Document ---
:1950 Author Organization [facility] t Address [address] [place] [address] Care Team Providers Name Role Phone Shyam Hernandez Primary Care Physician Luba Donovan DO Attending Clinician LYSSA CHAPARRO Attending Clinician Unavailable LYSSA CHAPARRO Admitting Clinician Unavailable Payers Payer Name Policy Type Policy Number Effective Date Expiration Date S ource Problems Condition Condition Condition Status Onset Resolution Last Treating Co mments Source Name Details Category Date Date Treatment Clinician Date Phlegmon Phlegmon Disease [facility] No known No known Disease Unive rs active active ity of problems problems [facility] Allergies, Adverse Reactions, Alerts Allergy Allergy Status Severity Reaction(s) Onset Inactive Treating Comm ents Source Name Type Date Date Clinician NO KNOWN Drug Active Univers ALLERGIE Class ity of S [facility] Social History Social Habit Start Date Stop Date Quantity Comments Source Exposure to Not sure [facility] SARS-CoV-2 (event) Medica l Branch Sex Assigned At [birth year] [facility] 00:00:00 00:00:00 Center Smoking Status Start Date Stop Date Source Unknown if ever smoked [facility] Medications Ordered Filled Start Stop Current Ordering Indication Dosage Frequency Signature Comments Components Source Medication Medication Date Date Medication? Clinician (SIG) Name Name iohexol 2020- No [id number] 120mL 120 mL, U nivers (OMNIPAQUE 5-01 05-01 Intravenou it y of 350 15:30: 15:13 s, ONCE, 1 [place] BULK-100 00 :00 dose, Sat Medica l mL) 12/25/20 at [place] injection 1030, 120 mL Routine famotidine 2020- No 20mg 20 mg, Univ ers (PEPCID 12-25 Slow IV ity of (PF)) 14:30: 13:35 [place], [place] injection 00 :00 ONCE, 1 Medical 20 mg dose, Sat Branch 12/25/20 at 0930, Routine aspirin 2020- No 324mg 324 mg, Unive rs chewable 12-25 Oral, ity of tablet 324 14:30: 13:36 ONCE, 1 [place] as mg 00 :00 dose, Sat Medical 12/25/20 at Branch 0930, Routine metFORMIN Yes 1000mg Take 1,[address] [facility] [address] (GLUCOPHAGE 1-28 mg by [facility] ) 1000 MG 16:45: mouth 2 Medic al tablet 34 (two) Center times daily with breakfast and lunch. metFORMIN Yes 1000mg Take 1,[address] (GLUCOPHAGE 1-28 mg by [facility] ) 1000 MG 16:45: mouth 2 Medic al tablet 34 (two) Center times daily with breakfast and lunch. Magic 2019-0 Yes 5mL Take [address] [address] Mouthwash 1-28 by mouth [facility] WITH 00:00: every 6 Medical steroid 00 (six) Center oral hours. suspension Magic 2019-0 Yes 5mL Take [address] Mouthwash 1-28 by mouth [facility] WITH 00:00: every 6 Medical steroid 00 (six) Center oral hours. suspension HUMULIN 2017-08 Yes 30U Inject [facility] 70/30 U-100 2-18 30-60 [facility] INSULIN 100 00:00: Units Medic al unit/mL 00 [facility] Center (70-30) usly 2 injection (two) times daily with breakfast and dinner Inject 60 units after breakfast Inject 30 units after dinner. HUMULIN 2017-08 Yes 30U Inject [facility] 70/30 U-100 2-18 30-60 [facility] INSULIN 100 00:00: Units Medic al unit/mL 00 [facility] (70-30) usly 2 injection (two) times daily with breakfast and dinner Inject 60 units after breakfast Inject 30 units after dinner. No known No Univers medications [facility] Vital Signs Vital Name Observation Time Observation Value Comments Source Systolic blood 2020-12-25 19:00:00 140 mm[Hg] Univer sity of pressure [facility] Diastolic blood 2020-12-25 19:00:00 80 mm[Hg] [facility] Heart rate 2020-12-25 19:00:00 86 /min [facility] Respiratory rate 2020-12-25 19:00:00 19 /min [facility] Oxygen saturation in 2020-12-25 19:00:00 97 /min [facility] Arterial blood by [facility] Pulse oximetry Branch Body temperature 2020-12-25 13:14:00 37.06 Riana [facility] Body height 2020-12-25 13:14:00 177.8 cm [facility] Body weight 2020-12-25 13:14:00 86.183 kg [facility] BMI 2020-12-25 13:14:00 27.26 kg/m2 [facility] Procedures Procedure Date / Time Performed Performing Clinician [facility] TROPONIN I 2020-12-25 17:43:00 Luba Donovan [facility] CT ABDOMEN PELVIS W 2020-12-25 15:16:27 Luba Donovan [facility] CONTRAST [facility] XR CHEST 1 VW 2020-12-25 13:41:53 Luba Dnoovan [facility] LIPASE 2020-12-25 13:29:00 Luba Donovan [facility] TROPONIN I 2020-12-25 13:29:00 Luba Donovan [facility] HEPATIC FUNCTION 2020-12-25 13:29:00 Luba Donovan [facility] PANEL (83303) [facility] (ALB,T.PRO,BILI T,BU/BC,ALT,AST,ALK PHOS) BASIC METABOLIC PANEL 2020-12-25 13:29:00 Luba Donovan [facility] (NA, K, CL, CO2, Medical Branch GLUCOSE, BUN, CREATININE, CA) CBC WITH DIFF 2020-12-25 13:29:00 Luba Donovan [facility] Medical Branch COVID-19 (ID NOW 2020-12-25 13:29:00 Luba Donovan [facility] RAPID TESTING) Medical Branch HB ECG ROUTINE & 2020-12-25 13:27:27 Luba Donovan [facility] RHYTHM STRIP Medical Branch NOTICE OF PRIVACY 2020-12-25 13:07:34 Doctor Unassigned, No Univ [facility] PRACTICES Name Medical Branch CONSENT/REFUSAL FOR 2020-12-25 13:07:20 Doctor Unassigned, No Un [facility] DIAGNOSIS AND Name Medical Branch TREATMENT Plan of Care Planned Activity Planned Date Details Comments Source Future Scheduled 2021-04-27 INFLUENZA VACCINE (#1) [facility] 00:00:00 [code = INFLUENZA Medical Ce nter VACCINE (#1)] Future Scheduled 2020-08-[address] [facility] Test 00:00:00 (12+) [code = Medical Center DEPRESSION SCREENING (12+)] Future Scheduled 2020-08-27 FALLS RISK SCREENING [facility] Test 00:00:00 [code = FALLS RISK Medical C enter SCREENING] Future Scheduled 2018-09-[address] [facility] Test 00:00:[address] [facility] (procedure) [code = 24325109] Future Scheduled 2017 PNEUMOCOCCAL 65+ YRS [facility] Test 00:00:00 (1 of 1 - Medical Center [id number] PCV13) [code = PNEUMOCOCCAL 65+ YRS (1 of 1 - [id number] PCV13)] Future Scheduled 2002 SHINGLES VACCINES ([address] [facility] Test 00:00:00 of 2) [code = SHINGLES Medic al Center VACCINES (1 of 2)] Future Scheduled 1971 DTAP/TDAP/TD VACCINES [facility] Test 00:00:00 (1 - Tdap) [code = Medical C enter DTAP/TDAP/TD VACCINES (1 - Tdap)] Future Scheduled 1970 HEPATITIS C SCREENING [facility] Test 00:00:00 [code = HEPATITIS C Medical Center SCREENING] Future Scheduled 1964 COVID-19 VACCINE (1) [facility] Test 00:00:00 [code = COVID-[address] VACCINE (1)] Future Scheduled 1962 DIABETIC EYE EXAM [facility] Test 00:00:00 [code = DIABETIC EYE Medical Center EXAM] Future Scheduled 1962 Urine screening for [facility] Test 00:00:00 protein (procedure) [facility] [code = 583395793] Future Scheduled [address] [facility] Test 00:00:00 malignant neoplasm of [facility] colon (procedure) [code = 711005800] Encounters Start End Encounter Admission Attending Care Care Encounter Source Date/Time Date/Time Type Type Clinicians Facility Department ID 2020-12-25 2020-12-25 Emergency Trae, [facility] [id number] Univers 08:15:00 14:29:00 Luba Patel [id number] [facility] [id number] [facility] [id number] [place] [id number] Branch 2020-12-25 2020-12-25 Emergency X [facility] ERT [id number] Univers 08:15:00 08:15:00 [facility] Results Test Description Test Time Test Comments Results Result Comments Source Troponin I 2020-12-25 19:09:05 Test Item Value Reference Range Interpretation Comme nts TROPONIN I (test code = 0.030 ng/mL See_Comment [Au tomated message] The [id number]) system which ge nerated this result tra nsmitted reference range : <=0.034. The reference r marissa was not used to int erpret this result as normal/abnormal . MAXWELL (test code = MAXWELL) Equal or Less than 0.034 ng/ml---Normal ?Note: Cardiac troponin begins to rise 3-4 hours after the onset of ischemia. Repeat in 4-6 hours if the sample was drawn within 3-4 hours of the onset of the symptom and found normal. Between 0.035 and 0.120 ng/mL--- Borderline. Questionable myocardial injury or necrosis ? ?Note: Serial measurement may be necessary to confirm or exclude the diagnosis of myocardial injury or necrosis; Clinical correlation (symptoms, EKGs, imaging studies, and others) required; Repeat in 4-6 hours if clinically indicated. ? Equal or Higher than 0.121 ng/mL---Abnormal. Myocardial Injury or Necrosis Likely ? Biotin has been reported to cause a negative bias, interpret results relative to patient's use of biotin. ? Lab Interpretation (test Normal code = 08915-7) [facility] [id number] 17:09:211. ?No acute intraabdominal pathology. 2. Minimal haziness of the upper abdominal mesenteric fat is nonspecific,but may be related to mild mesenteric panniculitis. 3. Hepatomegaly. There is a subcentimeter enhancing focus at the dome ofthe liver, possibly a flash filling hemangioma. This is incompletel ycharacterized on this examination. RL: 6214AFC: [id number] End of Report EXAM: CT ABDOMEN PELVIS W CONTRAST Ordering Physician: ? ?TERELL HISTORY: Abdominal Pain. COMPARISON: none TECHNIQUE: CT of the abdomen and pelvis with IV contrast. Coronal andsagittal reformatted images were obtained. CT performed according to ALAprinciples. TECHNICAL QUALITY: Adequate CT OF THE ABDOMEN WITH IV CONTRAST:There is minimal atelectasis at the lung bases. The heart appears enlarged. The liver measures 22 cm in AP length and 19.5 cm in cranial caudallength. There is a hyperenhancing 7 mm focus in the posterior hepatic dome,incompletely characterized on this examination. ?The patient ispostcholecystectomy. The spleen is normal. The pancreas is normal. Theadrenals are normal. ?The kidneys are normal. There are a few fluid-filled nondilated loops of small bowel. Nosignificant wall thickening or surrounding inflammatory changes present.There is moderate stool in the colon. The appendix is seen in the rightlower quadrant and is normal. The intra-abdominal vasculature is normal.There is no free fluid. ?There is no free air or pathologiclymph adenopathy. There is minimal haziness of the upper abdominalmesenteric fat. CT OF THE PELVIS WITH IVCONTRAST:The rectum and sigmoid are normal. The distal ureters and bladder arenormal. ?There is no free fluid or pathologic lymphadenopathy in thepelvis. Prostate is normal in size. Small bilateral fat- containing inguinal hernias are present. There are milddegenerative changes in the lower thoracic and lumbar spine. [facility], Radiant Results Inft User - 12/25/2020 12:10 PM CDTEXAM: CT ABDOMEN PELVIS W CONTRASTOrdering Physician: LUBA DONOVAN HISTORY: Abdominal Pain.COMPARISON: noneTECHNIQUE: CT of the abdomen and pelvis with IV contrast. Coronal andsagittal reformatted images were obtained. CT performed according to ALARAprinciples.TECHNICAL QUALITY: AdequateCT OF THE ABDOMEN WITH IV CONTRAST:Thereis minimal atelectasis at the lung bases. The heart appears enlarged. The liver measures 22 cm in APlength and 19.5 cm in cranial caudallength. There is a hyperenhancing 7 mm focus in the posterior hepatic dome,incompletely characterized on this examination. The patient ispostcholecystectomy. The spleen is normal. The pancreas is normal. Theadrenals are normal. The kidneys are normal. There are a few fluid-filled nondilated loops of small bowel. Nosignificant wall thickening or surrounding inflammatory changes present.There is moderate stool in the colon. The appendix is seen in the rightlower quadrant and is normal. The intra-abdominal vasculature is normal.There is no free fluid. There is no free air or pathologiclymphadenopathy. There is minimal haziness of the upper abdominalmesenteric fat.CT OF THE PELVIS WITH IV CONTRAST:The rectum and sigmoid are normal. The distal ureters and bladder arenormal. There is no free fluid or pathologic lymphadenopathy in thepelvis. Prostate is normal in size.Small bilateral fat-containing inguinal hernias are present. There are milddegenerative changes in the lower thoracic and lumbar spine. IMPRESSION1. No acute intraabdominal pathology. 2. Minimal haziness of the upper abdominal mesenteric fat is nonspecific,but may be related to mild mesenteric pannicu litis.3. Hepatomegaly. There is a subcentimeter enhancing focus at the dome ofthe liver, possibly a flash filling hemangioma. This is incompletelycharacterized on this examination.RL: 6214AFC: [id number] Report [facility] 1 [id number] 14:50:12 No radiographic evidence of acute cardiopulmonary process. Preliminary Report Dictated by Resident:Shefali Anderson MD., have reviewed this study and agree with theabove report.EXAM: XR CHEST 1 VW COMPARISON: None HISTORY: chest pain ?started last week. It started here (RUQ), itwasburning. Then last night it started in the middle (epigastric). FINDINGS: Lungs: The lungs are clear. and well-expanded No pleural effusion orpneumothorax is identified. abnormality. Heart/Mediastinum: The cardiomediastinal silhouette is atrophy upper limitof normal in size accounting for technique. Bones: No osseous lesions are detected. The soft tissues appear normal [facility], Radiant Results Inft User - 12/25/2020 9:51 AM CDTEXAM: XR CHEST 1 VWCOMPARISON: NoneHISTORY: chest pain started last week.It started here (RUQ), it wasburning. Then last night it started in the middle (epigastric).FINDINGS:Lungs: The lungs are clear. and well-expanded No pleural effusion orpneumothorax is identified. abnor mality.Heart/Mediastinum: The cardiomediastinal silhouette is atrophy upper limitof normal in size accounting for technique.Bones: No osseous lesions are detected. The soft tissues appear normalIMPRESSIONNo radiographic evidence of acute cardiopulmonary process.Preliminary Report Dictated by Resident:Shefali Price MD., have reviewed this study and agree with theabove report.[facility]ennialTropomadalynn [id number] 14:05:24 Test Item Value Reference Range Interpretation Comments TROPONIN I (test 0.033 ng/mL See_Comment [Automated code = 8310104376) message] The system which generated this result transmitted reference range : <=0.034. The reference range was not used to interpret this result as normal/abnormal . MAXWELL (test code = Equal or Less than MAXWELL) 0.034 ng/ml---Normal ?Note: Cardiac troponin begins to rise 3-4 hours after the onset of ischemia. Repeat in 4-6 hours if the sample was drawn within 3-4 hours of the onset of the symptom and found normal. Between 0.035 and 0.120 ng/mL--- Borderline. Questionable myocardial injury or necrosis ? ?Note: Serial measurement may be necessary to confirm or exclude the diagnosis of myocardial injury or necrosis; Clinical correlation (symptoms, EKGs, imaging studies, and others) required; Repeat in 4-6 hours if clinically indicated. ? Equal or Higher than 0.121 ng/mL---Abnormal. Myocardial Injury or Necrosis Likely ? Biotin has been reported to cause a negative bias, interpret results relative to patient's use of biotin. ? Lab Interpretation Normal (test code = 58259-6) [facility] [place] Met[facility] (NA, K, CL, CO2, GLUCOSE, BUN, CREATININE, CA)2020-12-25 13:54:05 Test Item Value Reference Range Interpretation Comments NA (test code = 136 mmol/L 135-145 0275777459) K (test code = 3.8 mmol/L 3.5-5.0 7178612676) CL (test code = 104 mmol/L 98-108 2529460942) CO2 TOTAL (test code = 20 mmol/L 23-31 L 5576980965) AGAP (test code = 2-16 3791687263) BUN (test code = 28 mg/dL 7-23 H 1787553505) GLUCOSE (test code = 371 mg/dL 70-110 H 8212787662) CREATININE (test code = 1.21 mg/dL 0.60-1.25 5713210661) CALCIUM (test code = 8.5 mg/dL 8.6-10.6 L 9036290846) eGFR (test code = mL/min/1.73m2 6239481382) MAXWELL (test code = MAXWELL) Association of Glomerular Filtration Rate (GFR) and Staging of Kidney Disease* + --+ --+ ------+| GFR (mL/min/1.73 m2) ?| With Kidney Damage ?| ?Without Kidney Damage+ --------+ --------+ +| ?>90 ?| ?Stage one ?| ? Normal ?+ ---+ ---+ -------+| ?60-89 ?| ?Stage two ?| ? Decreased GFR ? + --+ --+ ------+| ?30-59 ?| ?Stage three ?| ? Stage three ? + --+ --+ ------+| ?15-29 ?| ?Stage four ? | ? Stage four ?+ ---+ ---+ -------+| ?<15 (or dialysis) ? ?| ?Stage five ? | ? Stage five ?+ ---+ ---+ -------+ *Each stage assumes the associated GFR level has been in effect for at least three months. ?Stages 1 to 5, with or without kidney disease, indicate chronic kidney disease. Notes: Determination of stages one and two (with eGFR >59mL/min/1.73 m2) requires estimation of kidney damage for at least three months as defined by structural or functional abnormalities of the kidney, manifested by either:Pathological abnormalities or Markers of kidney damage (including abnormalities in the composition of the blood or urine or abnormalities in imaging tests). Lab Interpretation Abnormal (test code = 82035-5) [facility] (ALB, T.PRO, BILI T, BU/BC, ALT, AST, ALK PHOS)2020-12-25 13:54:05 Test Item Value Reference Range Interpretation Comments TOTAL BILI (test code = 4401418548) 0.5 mg/dL 0.1-1.1 BILI UNCON (test code = 1616166857) 0.4 mg/dL 0.1-1.1 BILI CONJ (test code = 7614363274) 0.0 mg/dL 0.0-0.3 T PROTEIN (test code = 0213573058) 6.9 g/dL 6.3-8.2 ALBUMIN (test code = 8893544644) 4.2 g/dL 3.5-5.0 ALK PHOS (test code = 0163446394) 153 U/L 34-122 H ALTv (test code = 1742-6) 15 U/L 5-50 AST(SGOT) (test code = 4806282499) 19 U/L 13-40 Lab Interpretation (test code = Abnormal 98309-9) [facility] CentennialLipase [id number] 13:54:05 Test Item Value Reference Range Interpretation Comments LIPASE (test code = 5645745118) 100 U/L 0-220 Lab Interpretation (test code = Normal 70237-6) [facility]OVID-[facility] (ID NOW RAPID TESTING)2020-12-25 13:52:05 Test Item Value Reference Range Interpretation Comments SARS-CoV-2 Rapid ID NOW Not Detected Not Detected (test code = 15074-3) MAXWELL (test code = MAXWELL) ID NOW COVID-19 Assay is an isothermal nucleic acid amplification test intended for the qualitative detection of nucleic acid from SARS-CoV-2 viral RNA in nasopharyngeal (PREFINISH OPERATOR) specimens. It is used under Emergency Use Authorization (EUA) by FDA. The limit of detection (LOD) of the assay is 125 Genome Equivalents/mL. A positive result is indicative of the presence of SARS-CoV-2 RNA. ?Clinical correlation with patient history and other diagnostic information is necessary to determine patient infection status. A negative (Not Detected) result does not preclude SARS-CoV-2 infection. In patients with clinical symptoms and other tests that are consistent with SARS-CoV-2 infection, negative results should be treated as presumptive negative and a new specimen should be tested with alternative PCR molecular test. Invalid: Please collect a new specimen for repeat patient testing if clinically indicated. Lab Interpretation Normal (test code = 56113-3) [facility]CBC with [id number] 13:36:42 Test Item Value Reference Range Interpretation Comments WBC (test code = See_Comment [Automated 4291-2) message] The sy stem which generated this result transmitted reference range : 4.20 - 10.70 10*3/?L. The reference range was not used to interpret this result as normal/abnormal . RBC (test code = See_Comment [Automated 429-8) message] The sy stem which generated this result transmitted reference range : 4.26 - 5.52 10*6/?L. The reference range was not used to interpret this result as normal/abnormal . HGB (test code = 12.6 g/dL 12.2-16.4 718-7) HCT (test code = 36.7 % 38.4-49.3 L 4544-3) MCV (test code = 82.3 fL 81.7-95.6 787-2) MCH (test code = 28.3 pg 26.1-32.7 785-6) MCHC (test code = 34.3 g/dL 31.2-35.0 786-4) RDW-SD (test code = 37.2 fL 38.5-51.6 L 73471-9) RDW-CV (test code = 12.3 % 12.1-15.4 788-0) PLT (test code = See_Comment [Automated 777-3) message] The sy stem which generated this result transmitted reference range : 150 - 328 10*3/ ?L. The reference r marissa was not used to interpret this result as normal/abnormal . MPV (test code = 11.0 fL 9.8-13.0 07013-1) NRBC/100 WBC (test See_Comment [Automat ed code = 9303749806) message] The system which generated this result transmitted reference range : 0.0 - 10.0 /100 WBCs. The refer ence range was not u sed to interpret th is result as normal/abnormal . NRBC x10^3 (test code <0.01 See_Comment [Auto mated = 0006532395) message] The s ystem which generated this result transmitted reference range : 10*3/?L. The reference range was not used to interpret this result as normal/abnormal . GRAN MAT (NEUT) % 66.6 % (test code = 770-8) IMM GRAN % (test code 0.40 % = 1255124348) LYMPH % (test code = 24.9 % 736-9) MONO % (test code = 6.9 % 5905-5) EOS % (test code = 0.9 % 713-8) BASO % (test code = 0.3 % 706-2) GRAN MAT x10^3(ANC) 4.55 10*3/uL 1.99-6.95 (test code = 7217605158) IMM GRAN x10^3 (test 0.03 10*3/uL 0.00-0.06 code = 8635759028) LYMPH x10^3 (test code 1.70 10*3/uL 1.09-3.23 = 731-0) MONO x10^3 (test code 0.47 10*3/uL 0.36-1.02 = 742-7) EOS x10^3 (test code = 0.06 10*3/uL 0.06-0.53 711-2) BASO x10^3 (test code <0.03 0.01-0.09 = 704-7) Lab Interpretation Abnormal (test code = 65827-3) [facility]OV2[facility]) 2020-03-28 14:16:00 Test Item Value Reference Range Interpretation Comments SARS-COV2/RT-PCR (test code Positive Not Detected, Negative, AA = [id number]) See external report for linked test SARS-COV-[address] [facility] (test code = 4094253) Results are for the detection of SARS-CoV-2 [...] copies/mL.This SARS CoV-2 test is a rapid, hnla-amznAA-SVW test intended for the qualitative detection of [...] 564(g) of the Act.Fact Sheet for Healthcare Providers:https://www.[employer].Offermobi/ Documents/Xpert%20Xpress%20SARS%20CoV-2/Fact%20Sheets/302-3802%61MUAI-VBU-3%20HE ALTHCARE%20PROVIDERS%20FACT%20SHEET.pdfFact Sheet for Healthcare Patients:https://www.[employer]Documents/Xpert%20Xpress %20SARS%20CoV-2/Fact%20Sheets/302-3801%96AXIV-WMU-1%20PATIENT%20FACT%20SHEET.pdf Performing Laboratory:[place] [address] [address] [place], [place] [address]KHOQ-XHSSNAM [id number] 14:00:00 Test Item Value Reference Range Interpretation Comments POC-GLUCOSE METER 172 mg/dL 70-110 H TESTED AT [place] [address] ([facility]) (test code = ONIEL Thorne [facility] 1538) [address] POCT-GLUCOSE [id number] 08:19:00 Test Item Value Reference Range Interpretation Comments POC-GLUCOSE METER 145 mg/dL 70-110 H TESTED AT [place] [address] ([facility]) (test code = ONIEL Thorne [facility] 1538) [address] POCT-GLUCOSE [id number] 21:45:00 Test Item Value Reference Range Interpretation Comments POC-GLUCOSE METER 260 mg/dL 70-110 H TESTED AT [place] [address] ([facility]) (test code = ONIEL Thorne [facility] 1538) [address] POCT-GLUCOSE [id number] 16:53:00 Test Item Value Reference Range Interpretation Comments POC-GLUCOSE METER 149 mg/dL 70-110 H TESTED AT [place] [address] ([facility]) (test code = ONIEL Thorne [facility] 1538) [address] POCT-GLUCOSE [id number] 12:19:00 Test Item Value Reference Range Interpretation Comments POC-GLUCOSE METER 141 mg/dL 70-110 H TESTED AT [place] [place] [address] ([facility]) (test code = ONIEL Thorne [facility] 1538) [id number] POCT-GLUCOSE [id number] 07:38:00 Test Item Value Reference Range Interpretation Comments POC-GLUCOSE METER 127 mg/dL 70-110 H TESTED AT [place] [address] ([facility]) (test code = ONIEL Thorne [facility] 1538) [id number] BASIC METABOLIC [id number] 04:59:00 Test Item Value Reference Range Interpretation Comments SODIUM ([facility]) 138 meq/L 136-145 (test code = 381) [...] PATIEN TS. CBC W/PLT COUNT & AUTO [id number] 04:28:00 Test Item Value Reference Range Interpretation [...] PERCENT (BEAKER) (test code = 2801) POCT-GLUCOSE [id number] 22:48:00 Test Item Value Reference Range Interpretation Comments POC-GLUCOSE METER 133 mg/dL 70-110 H TESTED AT [place] [address] ([facility]) (test code = ONIEL Thorne [facility] 1538) [id number] POCT-GLUCOSE [id number] 18:05:00 Test Item Value Reference Range Interpretation Comments POC-GLUCOSE METER 167 mg/dL 70-110 H TESTED AT [place] [address] ([facility]) (test code = ONIEL Thorne [facility] 1538) [id number] POCT-GLUCOSE [id number] 11:51:00 Test Item Value Reference Range Interpretation Comments POC-GLUCOSE METER 142 mg/dL 70-110 H TESTED AT [place] [address] ([facility]) ([facility] 1538) [id number] POCT-GLUCOSE [id number] 07:48:00 Test Item Value Reference Range Interpretation Comments POC-GLUCOSE METER 138 mg/dL 70-110 H TESTED AT [place] [address] ([facility]) (test code = ONIEL Thorne [facility] 1538) [id number] BASIC METABOLIC [id number] 06:56:00 Test Item Value Reference Range Interpretation [...] APPLICABLE FOR DIALYSIS PATIEN TS. BASIC METABOLIC [id number] 06:50:00 Test Item Value Reference Range Interpretation [...] PATIEN TS. CBC W/PLT COUNT & AUTO [id number] 06:34:00 Test Item Value Reference Range Interpretation [...] = 2801) CBC W/PLT COUNT & AUTO [id number] 06:33:00 Test Item Value Reference Range Interpretation [...] ABSOLUTE COUNT 0.02 K/ L 0.04-0.54 L ([facility]) (test code = 416) BASOPHILS ABSOLUTE COUNT ([facility]) 0.02 K/ L 0.01-0.08 (test code = 417) IMMATURE GRANULOCYTES-RELATIVE 0 % 0-1 PERCENT ([facility]) (test code = 2801) POCT-GLUCOSE [id number] 21:02:00 Test Item Value Reference Range Interpretation Comments POC-GLUCOSE METER 232 mg/dL 70-110 H TESTED AT [place] [address] ([facility]) (test code = ONIEL [place] 1538) [id number] POCT-GLUCOSE [id number] 17:47:00 Test Item Value Reference Range Interpretation Comments POC-GLUCOSE METER 278 mg/dL 70-110 H TESTED AT [place] [address] ([facility]) (test code = ONIEL [place] 1538) [id number] POCT-GLUCOSE [id number] 13:08:00 Test Item Value Reference Range Interpretation Comments POC-GLUCOSE METER 307 mg/dL 70-110 H TESTED AT [place] [address] ([facility]) (test code = ONIEL Thorne [facility] 1538) [id number] POCT-GLUCOSE [id number] 09:05:00 Test Item Value Reference Range Interpretation Comments POC-GLUCOSE METER 274 mg/dL 70-110 H TESTED AT [place] [address] ([facility]) (test code = ONIEL Thorne [facility] 1538) [id number]"
[2022-05-20 04:46] LABS: Absolute Lymphocytes (CBC) 0.8 K/uL (0.7-4.9); Hematocrit 31.9 % (39.6-49.0); MCV 82.7 fL (80-100); MPV 8.3 fL (7.6-11.3); RBC Red Blood Cell Count 3.86 M/uL (4.33-5.43)
[2022-05-20 05:03] LABS: Magnesium 2.1 mg/dL (1.8-2.4); Potassium 3.7 mmol/L (3.5-5.1); Troponin High Sensitivity 54.4 pg/mL (<58.9)
--- NOTE | 2022-05-20 05:10 | ER ---
Nurse's Notes [facility] Name: Sylvain Veronica Age: 71 yrs Sex: Male : 1950 Arrival Date: 05/20/2022 Time: 03:47 Bed 18 Private MD: Diagnosis: Heart failure;Dyspnea, unspecified;Abdominal pain, unspecified;Hypertensive urgency Presentation: 05/20 04:03 Chief complaint: Patient states: SOB, cough and abdominal pain starting around 0300. lg3 Coronavirus screen: Client denies travel out of the [place] in the last 14 days. Client presents with at least one sign or symptom that may indicate coronavirus-19. Standard/surgical mask placed on the client. Ebola Screen: No symptoms or risks identified at this time. Initial Sepsis Screen: Does the patient meet any 2 criteria? RR > 20 per min. Systolic BP < 90 mmHg. Yes Does the patient have a suspected source of infection? No. Patient's initial sepsis screen is negative. Risk Assessment: Do you want to hurt yourself or someone else? Patient reports no desire to harm self or others. Onset of symptoms was May 20, 2022. 04:03 Method Of Arrival: Ambulatory lg3 04:03 Acuity: JACKIE 3 lg3 Triage Assessment: 04:04 General: Appears in no apparent distress. uncomfortable, Behavior is calm, cooperative. lg3 Pain: Complains of pain in abdomen. EENT: No deficits noted. No signs and/or symptoms were reported regarding the EENT system. Neuro: No deficits noted. Level of Consciousness is awake, alert, obeys commands, Oriented to person, place, time, situation. Cardiovascular: No deficits noted. Capillary refill < 3 seconds Clubbing of nail beds is absent JVD is absent Patient's skin is warm and dry. Rhythm is sinus tachycardia. Respiratory: Reports shortness of breath at rest cough that is hacking, persistent Airway is patent Trachea midline Respiratory effort is even, shallow, Respiratory pattern is tachypnea. GI: Abdomen is round non-distended, obese, Bowel sounds present X 4 quads. Abd is soft and non tender X 4 quads. Reports upper abdominal pain. : No deficits noted. No signs and/or symptoms were reported regarding the genitourinary system. Derm: No deficits noted. No signs and/or symptoms reported regarding the dermatologic system. Skin is intact, is healthy with good turgor, Skin is dry, Skin is normal, Skin temperature is warm. Musculoskeletal: No deficits noted. No signs and/or symptoms reported regarding the musculoskeletal system. Circulation, motion, and sensation intact. Range of motion: intact in all extremities. Historical: - Allergies: 04:04 No Known Allergies; lg3 - PMHx: 04:04 Congestive heart failure; Systolic; Diabetes - IDDM; Hypertensive disorder; kidney lg3 disease; CKD 3; - PSHx: 04:04 Cholecystectomy; lg3 - Immunization history:: Client reports receiving the 2nd dose of the Covid vaccine. - Social history:: Smoking status: Patient denies any tobacco usage or history of. Patient uses alcohol, occasionally. Screenin:09 Abuse screen: Denies threats or abuse. Denies injuries from another. Nutritional lg3 screening: No deficits noted. Tuberculosis screening: No symptoms or risk factors identified. Fall Risk None identified. Assessment: 04:09 General: see triage assessment . lg3 04:09 Respiratory: Breath sounds are coarse Breath sounds with rhonchi bilaterally. lg3 04:09 Respiratory: Airway is patent Respiratory effort is even, shallow, Respiratory pattern lg3 is symmetrical, tachypnea. 05:10 Reassessment: Patient appears in no apparent distress at this time. No changes from lg3 previously documented assessment. Patient and/or family updated on plan of care and expected duration. Pain level reassessed. Patient is alert, oriented x 3, equal unlabored respirations, skin warm/dry/pink. Vital Signs: 04:03 BP 197 / 96; Pulse 109; Resp 24 S; Temp 98.3(O); Pulse Ox 98% on R/A; Weight 108.86 kg lg3 (R); Height 5 ft. 10 in. (177.80 cm) (R); 05:07 BP 131 / 77; Pulse 84; Resp 24; Pulse Ox 97% on R/A; lg3 04:03 Body Mass Index 34.44 (108.86 kg, 177.80 cm) lg3 ED Course: 03:47 Patient arrived in ED. ja2 03:47 Tristin Ricks DO is Attending Physician. ms3 04:04 Triage completed. lg3 04:04 Arm band placed on right wrist. lg3 04:09 Patient has correct armband on for positive identification. Placed in gown. Bed in low lg3 position. Call light in reach. Side rails up X 1. Client placed on continuous cardiac and pulse oximetry monitoring. NIBP monitoring applied. teletypesetter monitor on. Door closed. Noise minimized. Warm blanket given. 04:10 Kathy Billy, CHUCK is Primary Nurse. lg3 04:33 XRAY Chest (1 view) In Process Unspecified. EDMS 04:40 COVID-19 SARS RT PCR (Document "Date of Onset" if Symptomatic) Sent. lg3 04:40 Flu Sent. lg3 04:41 Lipase Sent. lg3 04:41 Basic Metabolic Panel Sent. lg3 04:41 CBC with Diff Sent. lg3 04:41 Magnesium Sent. lg3 04:41 NT PRO-BNP Sent. lg3 04:41 Troponin HS Sent. lg3 04:41 Inserted saline lock: 20 gauge in right hand, using aseptic technique. Blood collected. lg3 05:08 Karina Kemp MD is Hospitalizing Provider. ms3 05:08 Walter Pires is Hospitalizing Provider. ms3 08:19 Primary Nurse role handed off by Kathy Billy RN eb Administered Medications: 05:37 Drug: Lasix (furosemide) 40 mg Route: IVP; Site: right hand; lg3 10:33 Follow up: Response: No adverse reaction mb8 Outcome: 05:09 Decision to Hospitalize by Provider. ms3 12:35 Patient left the ED. mb8 Signatures: Dispatcher [employer] EDAK Nona Long Lacie, RN CHUCK lg3 Trsitin Ricks DO DO ms3 Kendra Hastings Michael, RN RN mb8 Corrections: (The following items were deleted from the chart) 05:09 04:09 Respiratory: Airway is patent Trachea midline Respiratory effort is even, lg3 unlabored, Respiratory pattern is symmetrical, tachypnea lg3 05:10 04:04 Respiratory: Reports shortness of breath at rest cough that is hacking, lg3 persistent Airway is patent Trachea midline Respiratory effort is even, unlabored, Respiratory pattern is regular, tachypnea lg3
--- NOTE | 2022-05-20 05:10 | EDPHYS ---
Physician Documentation [facility] Name: Sylvain Veronica Age: 71 yrs Sex: Male : 1950 Arrival Date: 05/20/2022 Time: 03:47 Bed 18 Private MD: ED Physician Tristin Ricks HPI: 05/20 03:56 This 71 yrs old Male presents to ER via Unassigned with complaints of Cough, ms3 Sore Throat, Abdominal Pain. 03:56 71-year-old male with past medical history of diabetes presents for epigastric ms3 abdominal pain, cough and shortness of breath that began 1 and half hours prior to arrival. Patient states his pain is currently a 9/10 and described as pressure. Patient denies alleviating or inciting factors. Patient endorses chills and cough. Patient denies nausea, vomiting, fevers.. Historical: - Allergies: 04:04 No Known Allergies; lg3 - PMHx: 04:04 Congestive heart failure; Systolic; Diabetes - IDDM; Hypertensive disorder; kidney lg3 disease; CKD 3; - PSHx: 04:04 Cholecystectomy; lg3 - Immunization history:: Client reports receiving the 2nd dose of the Covid vaccine. - Social history:: Smoking status: Patient denies any tobacco usage or history of. Patient uses alcohol, occasionally. ROS: 03:56 Constitutional: Negative for fever, and chills. Neck: Negative for injury, pain, and ms3 swelling, Cardiovascular: Negative for chest pain, and palpitations. 03:56 Respiratory: Positive for cough, shortness of breath. 03:56 All other systems are negative. Exam: 03:56 Constitutional: This is a well developed, well nourished patient who is awake, alert, ms3 and in no acute distress. Head/Face: Normocephalic, atraumatic. Neck: Trachea midline, no cervical lymphadenopathy. Supple, full range of motion without nuchal rigidity, or vertebral point tenderness. No Meningismus. Chest/axilla: Normal chest wall appearance and motion. Nontender with no deformity. 03:56 Cardiovascular: Rate: tachycardic, Rhythm: regular, Pulses: no pulse deficits are appreciated, Heart sounds: normal. 05:33 ECG was reviewed by the Attending Physician. ms3 Vital Signs: 04:03 BP 197 / 96; Pulse 109; Resp 24 S; Temp 98.3(O); Pulse Ox 98% on R/A; Weight 108.86 kg lg3 (R); Height 5 ft. 10 in. (177.80 cm) (R); 05:07 BP 131 / 77; Pulse 84; Resp 24; Pulse Ox 97% on R/A; lg3 04:03 Body Mass Index 34.44 (108.86 kg, 177.80 cm) lg3 MDM: 03:55 Patient medically screened. ms3 03:56 Differential Diagnosis: Bronchitis Upper Respiratory Infection Other Congestive heart ms3 failure. 05:33 Data reviewed: vital signs, nurses notes, lab test result(s), EKG, radiologic studies, ms3 and as a result, I will admit patient. Data interpreted: computer processing scheduler: rate is 84 beats/min, rhythm is normal sinus rhythm, regular, with no ectopy, Interpretation: normal rate, normal rhythm. Counseling: I had a detailed discussion with the patient and/or guardian regarding: the historical points, exam findings, and any diagnostic results supporting the discharge/admit diagnosis, lab results, radiology results, the need for further work-up and treatment in the hospital. ED course: Discussed case with YASMINE Stockton, and she accepts patient on behalf of Dr Pires. All questions answered. Patient remains in stable condition at this time.. 05/20 03:55 Order name: Basic Metabolic Panel; Complete Time: 05:07 3 05/20 03:55 Order name: CBC with Diff; Complete Time: 05:07 3 05/20 03:55 Order name: Magnesium; Complete Time: 05:07 ms3 05/20 03:55 Order name: NT PRO-BNP; Complete Time: 05:07 ms3 05/20 03:55 Order name: Troponin HS; Complete Time: 05:07 ms3 05/20 03:55 Order name: Lipase; Complete Time: 05:07 ms3 05/20 03:55 Order name: XRAY Chest (1 view) ms3 05/20 03:55 Order name: EKG; Complete Time: 03:56 ms3 05/20 03:59 Order name: Flu; Complete Time: 05:09 ms3 05/20 04:00 Order name: COVID-19 SARS RT PCR (Document "Date of Onset" if Symptomatic); Complete mw2 Time: 05:05/20 08:46 Order name: Glucose, Ancillary Testing EDMO 05/20 10:11 Order name: Urinalysis EDMO 05/20 03:55 Order name: Cardiac monitoring; Complete Time: 04:10 ms3 05/20 03:55 Order name: EKG - Nurse/Tech; Complete Time: 04:10 ms3 05/20 03:55 Order name: IV Saline Lock; Complete Time: 04:41 ms3 05/20 03:55 Order name: Labs collected and sent; Complete Time: 04:41 ms3 05/20 03:55 Order name: O2 Per Protocol; Complete Time: 04:10 ms3 05/20 03:55 Order name: O2 Sat Monitoring; Complete Time: 04:10 ms3 EC:33 Rate is 112 beats/min. Rhythm is regular. QRS [place] is Normal. [place] interval is normal. ms3 QRS interval is normal. QT interval is normal. Clinical impression: Sinus tachycardia. Interpreted by me. Reviewed by me. Administered Medications: 05:37 Drug: Lasix (furosemide) 40 mg Route: IVP; Site: right hand; [facility] 10:33 Follow up: Response: No adverse reaction mb8 Disposition Summary: 05/20/22 05:09 Hospitalization Ordered Hospitalization Status: Inpatient Admission ms3 Provider: Walter Pires ms3 Condition: Stable ms3 Problem: new ms3 Symptoms: are unchanged ms3 Bed/Room Type: Standard ms3 Location: [facility] ER HOLD(05/20/22 05:22) mw Room Assignment: ERHOLD-(05/20/22 05:22) Diagnosis - Heart failure ms3 - Dyspnea, unspecified ms3 - Abdominal pain, unspecified ms3 - Hypertensive urgency ms3 Forms: - Medication Reconciliation Form ms3 - SBAR form ms3 Signatures: Dispatcher [employer] EDMO Valerie Sanchez RN RN Kathy Billy RN RN [facility] Tristin Ricks DO DO ms3 Fernando Zepeda RN mb8 Corrections: (The following items were deleted from the chart) 05:22 05:09 Telemetry/MedSurg (Inpatient) ms3 05:22 05:09 ms3
--- NOTE | 2022-05-20 05:19 | P.HP ---
Certification for Inpatient Patient admitted to: Inpatient With expected LOS: >2 Midnights Patient will require the following post-hospital care: None Practitioner: I am a practitioner with admitting privileges, knowledge of patient current condition, hospital course, and medical plan of care. Services: Services provided to patient in accordance with Admission requirements found in Title 42 Section 412.3 of the Code of Federal Regulations Patient History Date of Service: 05/20/22 Reason for admission: CHF Exacerbation History of Present Illness: Patient is a 71-year-old male with history of chronic systolic congestive heart failure, diabetes type IIinsulin-dependent, hypertension, CKD 3 who presented to the emergency department in with complaints of abdominal pain, cough, and sore throat that began 1.5 hours [employer]. He also reports some chest pressure and body aches. Vitals significant for BP 197/96, pulse 109, RR 24, saturating 98% on RA upon arrival to ED. Chest xray showed "Prominent interstitial markings suggestive of interstitial edema. No consolidation." Labs significant for creatinine 2.08, BUN 40, BNP 4500. COVID, flu, troponin negative. He was admitted 7 months ago for CHF exacerbation and had echo which showed "several global hypokinesis. trace mitral and tricuspid regurgitation. left ventricular EF 32%" He was given 40 mg IV lasix in ED today. Patient is admitted for further management. Allergies No Known Allergies Allergy (Verified 08/23/20 20:31) Home medications list reviewed: Yes Home Medications: Clopidogrel Bisulfate [Plavix*] 75 mg PO DAILY #30 tablet 08/24/20 Simvastatin [Zocor] 40 mg PO DAILY #30 tablet 08/24/20 Metoprolol Tartrate [Lopressor*] 25 mg PO BID 06/17/21 Valsartan [Diovan] 80 mg PO DAILY #30 tablet 06/18/21 Atorvastatin Calcium [Lipitor] 40 mg PO BEDTIME #30 tab 10/02/21 Furosemide 20 mg PO DAILY #30 tablet 10/02/21 - Past Medical/Surgical History Diabetic: Yes -: Diabetes mellitus type 2insulin-dependent -: Hypertension -: Chronic systolic CHF -: CAD -: CKD 3 -: Cholecystectomy -: 2 stents Psychosocial/ Personal History: Patient is . Lives at home. - Family History Father -: Diabetes Mother -: Diabetes - Social History Smoking Status: Never smoker Alcohol use: Yes CD- Drugs: No Caffeine use: Yes Place of Residence: Home Review of Systems ENT: Throat Pain Respiratory: Cough Cardiovascular: Chest Pain Gastrointestinal: Abdominal Pain Physical Examination - Physical Exam General: Alert, In no apparent distress HEENT: Atraumatic, PERRLA, EOMI, Sclerae nonicteric Neck: Supple, 2+ carotid pulse no bruit, No LAD, Without JVD or thyroid abnormality Respiratory: Clear to auscultation bilaterally, Normal air movement Cardiovascular: Regular rate/rhythm, Normal S1 S2 Gastrointestinal: Normal bowel sounds, No tenderness Musculoskeletal: No tenderness Integumentary: No rashes Neurological: Normal gait, Normal speech, Normal strength at 5/5 x4 extr, Normal tone, Normal affect - Studies Laboratory Data (last 24 hrs) 05/20/22 04:34: WBC 7.60, Hgb 11.2 L, Hct 31.9 L, Plt Count 184 05/20/22 04:34: Sodium 140, Potassium 3.7, BUN 40 H, Creatinine 2.08 H, Glucose 155 H, Magnesium 2.1, Lipase 132 Microbiology Data (last 24 hrs): 05/20/22 04:28 Nasopharnyx Influenza Type A Antigen Screen - Final 05/20/22 04:28 Nasopharnyx Influenza Type B Antigen Screen - Final Assessment and Plan - Problems (Diagnosis) (1) CHF exacerbation Current Visit: Yes Status: Acute Qualifiers: Heart failure type: systolic Qualified Code(s): I50.23 - Acute on chronic systolic (congestive) heart failure (2) SANTOS (acute kidney injury) Current Visit: Yes Status: Acute (3) CAD (coronary artery disease) Current Visit: Yes Status: Chronic Qualifiers: Coronary Disease-Associated Artery/Lesion type: [place] artery [place] vs. transplanted heart: [place] heart Associated angina: without angina Qualified Code(s): I25.10 - Atherosclerotic heart disease of [place] coronary artery without angina pectoris (4) HTN (hypertension) Current Visit: Yes Status: Chronic Qualifiers: Hypertension type: primary hypertension Qualified Code(s): I10 - Essential (primary) hypertension (5) Type 2 diabetes mellitus Current Visit: Yes Status: Chronic Qualifiers: Diabetes mellitus long chain quiller tender insulin use: without mcfp use Diabetes mellitus complication status: with kidney complications Diabetes mellitus complication detail: with chronic kidney disease Chronic kidney disease stage: stage 4 (severe) Qualified Code(s): E11.22 - Type 2 diabetes mellitus with diabetic chronic kidney disease; N18.4 - Chronic kidney disease, stage 4 (severe) - Plan -Continue IV Lasix BID. Received 40 mg in ED. Will see how she responds -1500 cc/day fluid restriction. Daily weight. Monitor intake and output -Cardiology consulted -Repeat echo. Last done in September 2021 with EF 32% -ACHS Accu-Chek, mild sliding scale insulin. Diabetic diet -SANTOS with slightly bumped creatinine. Continue to monitor. Renally dose medications and hold nephrotoxic drugs -Monitor and replete electrolytes per protocol -Reconcile and continue home medications -Lovenox for VTE ppx -Full code Discharge Plan: Home Plan to discharge in: Greater than 2 days - Advance Directives Does patient have a Living Will: No Does patient have a Durable POA for Healthcare: No - Code Status/Comfort Care Code Status Assessed: Yes (Full) Critical Care: No Time Spent Managing Pts Care (In Minutes): 50
[2022-05-20] MEDS ORDERED: FUROSEMIDE 40 MG/4 ML VIAL ONE (05:31)
[2022-05-20] MEDS ORDERED: INSULIN -REGULAR HUMAN 50 UNIT/0.5 ML ML SQ SCH (07:41)
[2022-05-20] MEDS ORDERED: ONDANSETRON 4 MG/2 ML VIAL IV PRN (07:41)
[2022-05-20] MEDS ORDERED: ACETAMINOPHEN 500 MG TAB PO PRN (07:41)
[2022-05-20] MEDS ORDERED: ALBUTEROL 2.5 MG/3 ML NEB SOL NEB PRN (07:41)
[2022-05-20 08:18] VITALS: BMI 34.4
[2022-05-20] MEDS ORDERED: ASPIRIN EC 81 MG TAB PO ONE (08:52)
[2022-05-20] MEDS ORDERED: ENOXAPARIN 40 MG/0.4 ML SQ ONE (08:52)
[2022-05-20] MEDS ORDERED: ENOXAPARIN 40 MG/0.4 ML SQ SCH (09:00)
[2022-05-20] MEDS ORDERED: ASPIRIN EC 81 MG TAB PO SCH (09:00)
[2022-05-20 10:11] LABS: Specific Gravity 1.006 (1.005-1.030); Urine Bilirubin NEGATIVE (Negative); Urine Blood Trace (Negative); Urine Clarity Clear (Clear); Urine Color Colorless (Yellow); Urine Glucose NEGATIVE (Negative); Urine Protein NEGATIVE (Negative); Urine RBC <5 /HPF (None Seen); Urine Urobilinogen Normal (Normal)
--- NOTE | 2022-05-20 11:44 | P.DS ---
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 He also reported some chest pressure and body aches. Vitals significant for BP 197/96, pulse 109, RR 24, saturating 98% on RA upon arrival to ED. Chest xray showed "Prominent interstitial markings suggestive of interstitial edema. No consolidation." Labs significant for creatinine 2.08, BUN 40, BNP 4500. COVID, flu, troponin negative. He was admitted 7 months ago for CHF exacerbation and had echo which showed "several global hypokinesis. trace mitral and tricuspid regurgitation. left ventricular EF 32%" He was given 40 mg IV lasix in ED today. Patient was hospitalized for further management. Hospital Course: Patient placed under observation on the medical floor and treated with IV Lasix. His shortness of breath resolved. Patient was ambulatory. He did not require oxygen. He was complaining of dry throat on presentation which patient has resolved. He is currently asymptomatic and deemed stable for discharge. Patient is discharged with oral Lasix maintenance therapy. Also prescribed low- dose Coreg for CHF. Vital Signs/Physical Exam: Temp Pulse Resp BP Pulse Ox 97.8 F 80 16 135/98 H 99 05/20/22 11:00 05/20/22 11:00 05/20/22 11:00 05/20/22 11:00 05/20/22 11:00 General: Alert, In no apparent distress, Oriented x3 Neck: Supple, JVD not distended Respiratory: Clear to auscultation bilaterally, Normal air movement Cardiovascular: No edema, Regular rate/rhythm, Normal S1 S2 Gastrointestinal: Soft and benign, Non-distended Musculoskeletal: No swelling Integumentary: No rashes Neurological: Normal strength at 5/5 x4 extr Laboratory Data at Discharge: WBC 7.60 K/uL (4.3-10.9) 05/20/22 04:34 Hgb 11.2 g/dL (13.6-17.9) L 05/20/22 04:34 Hct 31.9 % (39.6-49.0) L 05/20/22 04:34 Plt Count 184 K/uL (152-406) 05/20/22 04:34 Sodium 140 mmol/L (136-145) 05/20/22 04:34 Potassium 3.7 mmol/L (3.5-5.1) 05/20/22 04:34 BUN 40 mg/dL (7-18) H 05/20/22 04:34 Creatinine 2.08 mg/dL (0.55-1.3) H 05/20/22 04:34 Glucose 155 mg/dL (74-106) H 05/20/22 04:34 Magnesium 2.1 mg/dL (1.8-2.4) 05/20/22 04:34 Lipase 132 U/L (73-393) 05/20/22 04:34 Home Medications: Valsartan [Diovan] 80 mg PO DAILY #30 tablet 06/18/21 ARIPiprazole [Aripiprazole] 10 mg PO BEDTIME 05/20/22 Furosemide [Lasix] 40 mg PO DAILY #30 tab 05/20/22 carvediloL [Coreg] 3.125 mg PO BID #60 tab 05/20/22 New Medications: carvediloL [Coreg] 3.125 mg PO BID #60 tab Furosemide [Lasix] 40 mg PO DAILY #30 tab Diet: AHA Activity: Ad nikhil Followup: Austen Mott MD [Primary Care Provider] - 1 Week
[2022-05-20] MEDS ORDERED: FUROSEMIDE 40 MG/4 ML VIAL IV SCH (18:00)
[2022-05-21 20:47] VITALS: TEMP 98.3
[2022-05-21 20:52] VITALS: BP 131/77; O2SAT 97
--- NOTE | 2022-05-22 13:47 | RAD REPORT ---
EXAM DESCRIPTION: XR Chest, 1 View CLINICAL HISTORY: The patient is 71 years old and is Male; shortness of breath TECHNIQUE: Frontal view of the chest. COMPARISON: No relevant prior studies available. FINDINGS: Lungs: Prominent interstitial markings suggestive of interstitial edema. No consolidatio n. Pleural space: Unremarkable. No pneumothorax. Heart: Unremarkable. Mediastinum: Unremarkable. Bones/joints: Unremarkable. IMPRESSION: Prominent interstitial markings suggestive of interstitial edema. No consolidation. Electronically signed by: Fernando Pena MD 05/20/2022 4:50 AM CDT Due to temporary technical issues with the PACS/Fluency reporting system, reports are being signed by the in house radiologists without review as a courtesy to insure prompt reporting. The interpreting radiologist is fully responsible for the content of the report.
--- NOTE | 2022-05-22 14:12 | EKG ---
Test Date: 2022-05-20 Test Time: 03:55:36 Quality Review Specialist: MEASUREMENT RESULTS: Intervals: Rate: 114 SC: 162 QRSD: 90 QT: 332 QTc: 457 Gray: P: 48 SC: 162 QRS: 47 T: 66 INTERPRETIVE STATEMENTS: Sinus tachycardia with occasional premature ventricular complexes Otherwise normal ECG Compared to ECG 09/30/2021 03:45:16 Ventricular premature complex(es) now present T-wave abnormality no longer present Electronically Signed On 05-22-22 14:09:35 CDT by Arie Bragg
--- NOTE | 2022-05-23 17:31 | EKG ---
Test Date: 2022-05-20 Test Time: 03:56:09 Professor Of Communication: MEASUREMENT RESULTS: Intervals: Rate: 112 SC: 170 QRSD: 86 QT: 334 QTc: 455 [place]: P: 43 SC: 170 QRS: 48 T: 61 INTERPRETIVE STATEMENTS: Sinus tachycardia Nonspecific ST and T wave abnormality Abnormal ECG Compared to ECG 05/20/2022 03:55:36 ST (T wave) deviation now present Ventricular premature complex(es) no longer present Electronically Signed On 05-23-22 17:28:32 CDT by Arie Bragg
== END 2022-05-20 12:33 | disposition home or self-care (01) | DRG 291 ==
LOC: ER 03:41 → ERHOLD 05:13
PROVIDERS: ADMIT Internal Medicine; ATTEND Internal Medicine
DX: I13.0 Hypertensive heart and chronic kidney disease with heart failure and stage 1 through stage 4 chronic kidney disease, or unspecified chronic kidney disease (principal); I50.23 Acute on chronic systolic (congestive) heart failure; N17.9 Acute kidney failure, unspecified; E11.22 Type 2 diabetes mellitus with diabetic chronic kidney disease; N18.30 Chronic kidney disease, stage 3 unspecified; I16.0 Hypertensive urgency; I25.10 Atherosclerotic heart disease of native coronary artery without angina pectoris; J39.2 Other diseases of pharynx; R10.9 Unspecified abdominal pain; R52 Pain, unspecified; Z20.822 Contact with and (suspected) exposure to COVID-19; Z79.02 Long term (current) use of antithrombotics/antiplatelets; Z79.899 Other long term (current) drug therapy; Z90.49 Acquired absence of other specified parts of digestive tract; Z83.3 Family history of diabetes mellitus
CPT/HCPCS: 36415; 71045; 80048; 81001; 82947; 83690; 83735; 83880; 84484; 85025; 87804; 93005; 96374; 99284; J1650; J1940; U0003

== ENCOUNTER 2022-07-17 21:33 | Inpatient (IN) | payer OTHER ==
--- OUTSIDE RECORDS SUMMARY | 2022-07-17 21:37 | XMS REPORT | Continuity of Care Document ---
:1950 Author Organization [facility] t Address [address] [place] [address] Care Team Providers Name Role Phone TANESHA PEREZ Primary Care Physician Unavailable uLba Donovan DO Attending Clinician LUBA DONOVAN Attending Clinician Unavailable LYSSA CHAPARRO Attending Clinician Unavailable LUBA DONOVAN Admitting Clinician Unavailable LYSSA CHAPARRO Admitting Clinician Unavailable Payers Payer Name Policy Type Policy Number Effective Date Expiration Date S ource Problems Condition Condition Condition Status Onset Resolution Last Treating Co mments Source Name Details Category Date Date Treatment Clinician Date Phlegmon Phlegmon Disease [facility] No known No known Disease Unive rs active active ity of problems problems [facility] Allergies, Adverse Reactions, Alerts Allergy Allergy Status Severity Reaction(s) Onset Inactive Treating Comm ents Source Name Type Date Date Clinician NO KNOWN Drug Active Univers ALLERGIE Class ity of S [facility] Social History Social Habit Start Date Stop Date Quantity Comments Source Exposure to Not sure [facility] SARS-CoV-2 (event) Medica l Branch Sex Assigned At [birth year] [facility] Medical 00:00:00 00:00:00 Center Smoking Status Start Date Stop Date Source Unknown if ever smoked Universit y [facility] Medications Ordered Filled Start Stop Current Ordering Indication Dosage Frequency Signature Comments Components Source Medication Medication Date Date Medication? Clinician (SIG) Name Name iohexol 2020- No [id number] 120mL 120 mL, U nivers (OMNIPAQUE 12-25 Intravenou it y of 350 15:30: 15:13 s, ONCE, 1 [place] BULK-100 00 :00 dose, Sat Medica l mL) 12/25/20 at Branch injection 1030, 120 mL Routine famotidine No 20mg 20 mg, Univ ers (PEPCID 12-25 Slow IV ity of (PF)) 14:30: 13:35 Push, [place] injection 00 :00 ONCE, 1 Medical 20 mg dose, Sat Branch 12/25/20 at 0930, Routine aspirin No 324mg 324 mg, Unive rs chewable 12-25 Oral, ity of tablet 324 14:30: 13:36 ONCE, 1 [place] as mg 00 :00 dose, Sat Medical 12/25/20 at Branch 0930, Routine metFORMIN 2018-0 Yes 1000mg Take 1,[address] [facility] [address] (GLUCOPHAGE 1-28 mg [facility] ) 1000 MG 16:45: mouth 2 Medic al tablet 34 (two) Center times daily with breakfast and lunch. metFORMIN 2019-0 Yes 1000mg Take 1,[address] (GLUCOPHAGE 1-28 [facility] ) 1000 MG 16:45: mouth 2 Medic al tablet 34 (two) Center times daily with breakfast and lunch. metFORMIN 2019-0 Yes 1000mg Take 1,[address] (GLUCOPHAGE [...] 100 00:00: Units [facility] ([facility] usly 2 injection (two) times daily with breakfast and dinner Inject 60 units after breakfast Inject 30 units after dinner. HUMULIN 2017-08 Yes 30U Inject [facility] 70/30 U-100 2-18 30-60 [facility] INSULIN 100 00:00: Units Medic al unit/[facility] (70-30) usly 2 injection (two) times daily with breakfast and dinner Inject 60 units after breakfast Inject 30 units after dinner. HUMULIN 2017-08 Yes 30U Inject [facility] 70/30 U-100 2-18 30-60 [facility] INSULIN 100 00:00: Units Medic al unit/mL [facility] (70-30) usly 2 injection (two) times daily with breakfast and dinner Inject 60 units after breakfast Inject 30 units after dinner. No known No [facility] medications [facility] Vital Signs Vital Name Observation Time Observation Value Comments Source Systolic blood 2020-12-25 19:00:00 140 mm[Hg[facility] Diastolic blood 2020-12-25 19:00:00 80 mm[Hg] [facility] Heart rate 2020-12-25 19:00:00 86 /min [facility] Respiratory rate 2020-12-25 19:00:00 19 /min [facility] Oxygen saturation in 2020-12-25 19:00:00 97 /min [facility] Arterial blood by [facility] Pulse oximetry Branch Body temperature 2020-12-25 13:14:00 37.06 Riana [facility] Body height 2020-12-25 13:14:00 177.8 cm [facility] Body weight 2020-12-25 13:14:00 86.183 kg [facility] BMI 2020-12-25 13:14:00 27.26 kg/m2 [facility] Procedures Procedure Date / Time Performed Performing Clinician Sourc e TROPONIN I 2020-12-25 17:43:00 Luba Donovan [facility] CT ABDOMEN PELVIS W 2020-12-25 15:16:27 [facility] Branch XR CHEST 1 VW 2020-12-25 13:41:53 Luba Donovan [facility] LIPASE 2020-12-25 13:29:00 Luba Donovan [facility] TROPONIN I 2020-12-25 13:29:00 Luba Donovan [facility] HEPATIC FUNCTION 2020-12-25 13:29:00 Luba Donovan [facility] PANEL ([id number]) Medical Branch (ALB,T.PRO,BILI T,BU/BC,ALT,AST,ALK PHOS) BASIC METABOLIC PANEL 2020-12-25 13:29:00 Luba Donovan [facility] (NA, K, CL, CO2, Medical Branch GLUCOSE, BUN, CREATININE, CA) CBC WITH DIFF 2020-12-25 13:29:00 Luba Donovan [facility] COVID-19 (ID NOW 2020-12-25 13:29:00 Luba Donovan [facility] RAPID TESTING) Medical Branch HB ECG ROUTINE & 2020-12-25 13:27:27 Luba Donovan [facility] RHYTHM STRIP Medical Branch NOTICE OF PRIVACY 2020-12-25 13:07:34 Doctor Unassigned, No [facility] PRACTICES Name Medical [place] CONSENT/REFUSAL FOR 2020-12-25 13:07:20 Doctor Unassigned, No [facility] DIAGNOSIS AND Name Medical Branch TREATMENT [...] A1c [facility] Test 00:00:00 [facility] (procedure) [code = 13218665] Future Scheduled 2017 PNEUMOCOCCAL 65+ YRS [facility] Test 00:00:00 (1 of 1 - Medical Center [id number] PCV13) [code = PNEUMOCOCCAL 65+ YRS (1 of 1 - [id number] PCV13)] Future Scheduled 2002 SHINGLES VACCINES (1 [...] [facility] Test 00:00:00 protein (procedure) [facility] Center [code = 866835636] Future Scheduled [address] Test 00:00:00 malignant neoplasm of [facility] colon (procedure) [code = 180470602] Encounters Start End Encounter Admission Attending Care Care Encounter Source Date/Time Date/Time Type Type Clinicians Facility Department ID 2020-12-25 2020-12-25 Emergency [place] VTHAYDER [id number] [facility] 08:15:00 14:29:00 Luba Patel [id number] starr [facility] [id number] [facility] [id number] [place] [id number] Branch 2020-12-25 2020-12-25 [facility] [id number] Univers 08:15:00 14:29:00 LUBA clements [facility] Results Test Description Test Time Test Comments Results Result Comments Source Troponin I 2020-12-25 19:09:05 Test Item Value Reference Range Interpretation Comme nts TROPONIN I (test code = 0.030 ng/mL See_Comment [Au tomated message] The 6965026523) system which [employer] nerated this result tra nsmitted reference range [...] ? Lab Interpretation (test Normal code = 87613-3) [facility] [id number] 17:09:211. ?No acute intraabdominal pathology. 2. Minimal haziness of the upper abdominal mesenteric fat is nonspecific,but may be related to mild mesenteric panniculitis. 3. Hepatomegaly. There is a subcentimeter enhancing focus at the dome ofthe liver, possibly a flash filling hemangioma. This is incompletel ycharacterized on this examination. RL: 6214AFC: [id number] End of Report EXAM: CT ABDOMEN PELVIS W CONTRAST Ordering Physician: ? ?TERELL HISTORY: Abdominal Pain. COMPARISON: none TECHNIQUE: CT of the abdomen and pelvis with IV contrast. Coronal andsagittal reformatted images were obtained. CT performed according to ALARAprinciples. TECHNICAL QUALITY: Adequate CT OF THE ABDOMEN [...] in the lower thoracic and lumbar spine. [facility], Radiant Results Inft User - 12/25/2020 12:10 [...] hernias are present. There are milddegenerative changes inthe lower thoracic and lumbar spine. IMPRESSION1. No acute intraabdominal pathology. 2. Minimal haziness of the upper abdominal mesenteric fat is nonspecific,but may be related to mild mesenteric pannic ulitis.3. Hepatomegaly. There is a subcentimeter enhancing focus at the dome ofthe liver, possibly aflash filling hemangioma. This is incompletelycharacterized on this examination.RL: 6214AFC: 54165Trn of Report [facility] 1 [id number] 14:50:12 No radiographic evidence of acute cardiopulmonary [...] reviewed this study and agree with theabove report.[facility] Center[facility] [id number] 14:05:24 Test Item Value Reference Range Interpretation Comments TROPONIN I (test 0.033 ng/mL See_Comment [Automated code = 6850528315) message] The system which generated this result [...] ? Lab Interpretation Normal (test code = 11400-1) [facility] (NA, K, CL, CO2, GLUCOSE, BUN, CREATININE, CA)2020-12-25 13:54:05 Test Item Value Reference Range Interpretation Comments NA (test code = 136 mmol/L 135-145 5738752928) K (test code = 3.8 mmol/L 3.5-5.0 8769071855) CL (test code = 104 mmol/L 98-108 9282477798) CO2 TOTAL (test code = 20 mmol/L 23-31 L 6802862061) AGAP (test code = 2-16 5368290385) BUN (test code = 28 mg/dL 7-23 H 1528158936) GLUCOSE (test code = 371 mg/dL 70-110 H 2834948970) CREATININE (test code = 1.21 mg/dL 0.60-1.25 2956253159) CALCIUM (test code = 8.5 mg/dL 8.6-10.6 L 2042671459) eGFR (test code = mL/min/1.73m2 7636539634) MAXWELL (test code = MAXWELL) Association of [...] tests). Lab Interpretation Abnormal (test code = 67497-1) [facility] (ALB, T.PRO, BILI T, BU/BC, ALT, AST, ALK PHOS)2020-12-25 13:54:05 Test Item Value Reference Range Interpretation Comments TOTAL BILI (test code = 8950460446) 0.5 mg/dL 0.1-1.1 BILI UNCON (test code = 4065454080) 0.4 mg/dL 0.1-1.1 BILI CONJ (test code = 4752795981) 0.0 mg/dL 0.0-0.3 T PROTEIN (test code = 1966148812) 6.9 g/dL 6.3-8.2 ALBUMIN (test code = 5118390496) 4.2 g/dL 3.5-5.0 ALK PHOS (test code = 0957194637) 153 U/L 34-122 H ALTv (test code = 1742-6) 15 U/L 5-50 AST(SGOT) (test code = 2589436199) 19 U/L 13-40 Lab Interpretation (test code = Abnormal 78206-6) [facility] CenterLipase [id number] 13:54:05 Test Item Value Reference Range Interpretation Comments LIPASE (test code = 6968849450) 100 U/L 0-220 Lab Interpretation (test code = Normal 56276-6) [facility] (ID NOW RAPID TESTING)2020-12-25 13:52:05 Test Item Value Reference Range Interpretation Comments SARS-CoV-2 Rapid ID NOW Not Detected Not Detected (test code = 30132-0) MAXWELL (test code = MAXWELL) ID NOW COVID-19 Assay is an isothermal nucleic acid amplification test intended for the qualitative detection of nucleic acid from SARS-CoV-2 viral RNA in nasopharyngeal (KITCHEN CLERK) specimens. It is used under Emergency Use [...] indicated. Lab Interpretation Normal (test code = 93126-4) [facility] with [id number] 13:36:42 Test Item Value Reference Range Interpretation Comments WBC (test code = See_Comment [Automated 6690-2) message] The sy stem which generated this result transmitted reference range : 4.20 - 10.70 10*3/?L. The reference range was not used to interpret this result as normal/abnormal . RBC (test code = See_Comment [Automated 789-8) message] The sy stem which generated this [...] (test code = 37.2 fL 38.5-51.6 L 74671-1) RDW-CV (test code = 12.3 % 12.1-15.4 788-0) PLT (test code = See_Comment [Automated 777-3) message] The sy stem which generated this result transmitted reference range : 150 - 328 10*3/ ?L. The reference r marissa was not used to interpret this result as normal/abnormal . MPV (test code = 11.0 fL 9.8-13.0 74047-9) NRBC/100 WBC (test See_Comment [Automat ed code = 8693543990) message] The system which generated this result transmitted reference range : 0.0 - 10.0 /100 WBCs. The refer ence range was not u sed to interpret th is result as normal/abnormal . NRBC x10^3 (test code <0.01 See_Comment [Auto mated = 3864271261) message] The s ystem which generated this result transmitted reference range : 10*3/?L. The reference range was not used to interpret this result as normal/abnormal . GRAN MAT (NEUT) % 66.6 % (test code = 770-8) IMM GRAN % (test code 0.40 % = 0050429743) LYMPH % (test code = 24.9 % 736-9) MONO % (test code = 6.9 % 5905-5) EOS % (test code = 0.9 % 713-8) BASO % (test code = 0.3 % 706-2) GRAN MAT x10^3(ANC) 4.55 10*3/uL 1.99-6.95 (test code = 5901185495) IMM GRAN x10^3 (test 0.03 10*3/uL 0.00-0.06 code = 3738418322) LYMPH x10^3 (test code 1.70 10*3/uL 1.09-3.23 = 731-0) MONO x10^3 (test code 0.47 10*3/uL 0.36-1.02 = 742-7) EOS x10^3 (test code = 0.06 10*3/uL 0.06-0.53 711-2) BASO x10^3 (test code <0.03 0.01-0.09 = 704-7) Lab Interpretation Abnormal (test code = 23595-9) [facility]OV2/[facility]-PCR ([facility]) 2020-03-28 14:16:00 Test Item Value Reference Range Interpretation Comments SARS-COV2/RT-PCR (test code Positive Not Detected, Negative, AA = 5686046) See external report for linked test SARS-COV-2 PERFORMING LAB [facility] (test code = 5587862) Results are for the detection of SARS-CoV-2 [...] copies/mL.This SARS CoV-2 test is a rapid, mwuf-ilqhOQ-YCD test intended for the qualitative detection of [...] 564(g) of the Act.Fact Sheet for Healthcare Providers:https://www.[employer]/ Documents/Xpert%20Xpress%20SARS%20CoV-2/Fact%20Sheets/302-3802%59XRMQ-JRB-1%20HE ALTHCARE%20PROVIDERS%20FACT%20SHEET.pdfFact Sheet for Healthcare Patients:https://www.[employer]/Documents/Xpert%20Xpress %20SARS%20CoV-2/Fact%20Sheets/302-3801%48SZXM-DLL-2%20PATIENT%20FACT%20SHEET.pdf Performing Laboratory:[place] [address] [address], [place] [address]CLIH-YTEYSUR [id number] 14:00:00 Test Item Value Reference Range Interpretation Comments POC-GLUCOSE METER 172 mg/dL 70-110 H TESTED AT [place] [address] ([facility]) (test code = ONIEL Thorne [facility] 1538) [address] POCT-GLUCOSE [id number] 08:19:00 Test Item Value Reference Range Interpretation Comments POC-GLUCOSE METER 145 mg/dL 70-110 H TESTED AT [place] [address] ([facility]) (test code = ONIEL Thorne [facility] 1538) [address] POCT-GLUCOSE [id number] 21:45:00 Test Item Value Reference Range Interpretation Comments POC-GLUCOSE METER 260 mg/dL 70-110 H TESTED AT [place] [address] ([facility]) (test code = ONIEL Throne [facility] 1538) [address] POCT-GLUCOSE [id number] 16:53:00 Test Item Value Reference Range Interpretation Comments POC-GLUCOSE METER 149 mg/dL 70-110 H TESTED AT [facility] 6720 (BEAKER) (test code = ONIEL Thorne [facility] 1538) [address] POCT-GLUCOSE [id number] 12:19:00 Test Item Value Reference Range Interpretation Comments POC-GLUCOSE METER 141 mg/dL 70-110 H TESTED AT [facility] 6720 (BEAKER) (test code = ONIEL Thorne [place] 1538) [address] POCT-GLUCOSE [id number] 07:38:00 Test Item Value Reference Range Interpretation Comments POC-GLUCOSE METER 127 mg/dL 70-110 H TESTED AT [facility] 67 (BEAKER) (test code = ONIEL Thorne [facility] 1538) [address] BASIC METABOLIC [id number] 04:59:00 Test Item Value Reference Range Interpretation [...] PATIEN TS. CBC W/PLT COUNT & AUTO [id number] 04:28:00 Test Item Value Reference Range Interpretation [...] PERCENT (BEAKER) (test code = 2801) POCT-GLUCOSE [id number] 22:48:00 Test Item Value Reference Range Interpretation Comments POC-GLUCOSE METER 133 mg/dL 70-110 H TESTED AT [facility] 6720 (BEAKER) (test code = ONIEL MCC[place] 1538) [address] POCT-GLUCOSE [id number] 18:05:00 Test Item Value Reference Range Interpretation Comments POC-GLUCOSE METER 167 mg/dL 70-110 H TESTED AT [facility] 67 (BEAKER) (test code = ONIEL Thorne [facility] 1538) [address] POCT-GLUCOSE [id number] 11:51:00 Test Item Value Reference Range Interpretation Comments POC-GLUCOSE METER 142 mg/dL 70-110 H TESTED AT [place] [address] (BEAKER) (test code = [facility] Mati [facility] 1538) [address] POCT-GLUCOSE [id number] 07:48:00 Test Item Value Reference Range Interpretation Comments POC-GLUCOSE METER 138 mg/dL 70-110 H TESTED AT [place] [address] (BEAKER) (test code = [facility] Mati [facility] 1538) [address] BASIC METABOLIC [id number] 06:56:00 Test Item Value Reference Range Interpretation [...] APPLICABLE FOR DIALYSIS PATIEN TS. BASIC METABOLIC [id number] 06:50:00 Test Item Value Reference Range Interpretation [...] PATIEN TS. CBC W/PLT COUNT & AUTO [id number] 06:34:00 Test Item Value Reference Range Interpretation [...] = 2801) CBC W/PLT COUNT & AUTO [id number] 06:33:00 Test Item Value Reference Range Interpretation [...] PERCENT (BEAKER) (test code = 2801) POCT-GLUCOSE [id number] 21:02:00 Test Item Value Reference Range Interpretation Comments POC-GLUCOSE METER 232 mg/dL 70-110 H [facility] AT [place] [address] [facility] (test code = [facility] 1538) [address] POCT-GLUCOSE [id number] 17:47:00 Test Item Value Reference Range Interpretation Comments POC-GLUCOSE METER 278 mg/dL 70-110 H TESTED AT [place] [address] [facility] (test code = [facility] 1538) [address] POCT-GLUCOSE [id number] 13:08:00 Test Item Value Reference Range Interpretation Comments POC-GLUCOSE METER 307 mg/dL 70-110 H TESTED AT [place] [address] [facility] (test code = [facility] 1538) [address] POCT-GLUCOSE [id number] 09:05:00 Test Item Value Reference Range Interpretation Comments POC-GLUCOSE METER 274 mg/dL 70-110 H TESTED AT [place] [address] ([facility]) (test code = [facility] 1538) [address]"
[2022-07-17] MEDS ORDERED: ACETAMINOPHEN 500 MG TAB ONE (22:25)
[2022-07-17] MEDS ORDERED: NITROGLYCERIN 1 GM PKT TD ONE (22:25)
[2022-07-17] MEDS ORDERED: FUROSEMIDE 100 MG/10 ML VIAL IV ONE (22:25)
[2022-07-17] MEDS ORDERED: ONDANSETRON 4 MG/2 ML VIAL ONE (22:26)
[2022-07-17] MEDS ORDERED: AZITHROMYCIN 500 MG INJ IVPB ONE (22:26)
[2022-07-17] MEDS ORDERED: MORPHINE 2 MG/ML SYR ONE (22:26)
[2022-07-17] MEDS ORDERED: NA CHLORIDE 0.9% 250 ML ONE (22:26)
[2022-07-17] MEDS ORDERED: CEFTRIAXONE 2000 MG/VIAL ONE (22:26)
[2022-07-17 22:28] LABS: Absolute Lymphocytes (CBC) 1.6 K/uL (0.7-4.9); Hematocrit 33.6 % (39.6-49.0); MCV 85.2 fL (80-100); MPV 8.9 fL (7.6-11.3); RBC Red Blood Cell Count 3.95 M/uL (4.33-5.43)
[2022-07-17 22:40] LABS: Protime INR 1.16
[2022-07-17 22:43] LABS: Albumin 3.9 g/dL (3.4-5.0); Bilirubin Direct 0.2 mg/dL (0-0.2); Bilirubin Total 0.6 mg/dL (0.2-1.0); Potassium 3.7 mmol/L (3.5-5.1)
[2022-07-17 22:45] LABS: Troponin High Sensitivity 81.8 pg/mL (<58.9)
--- NOTE | 2022-07-17 22:57 | EDPHYS ---
Physician Documentation [facility] Name: Sylvain Veronica Age: 71 yrs Sex: Male : 1950 Arrival Date: 07/17/2022 Time: 21:35 Bed 15 Private MD: ED Physician Leonel Almazan HPI: 07/17 22:00 This 71 yrs old Male presents to ER via Ambulatory with complaints of Cough, felix Chest Congestion, Breathing Difficulty. 22:00 The patient or guardian reports airway noise, cough, difficulty breathing. eflix Historical: - Allergies: 21:49 No Known Allergies; vc1 - Home Meds: 21:49 insulin [Active]; Lasix Oral [Active]; vc1 - PMHx: 21:49 Congestive heart failure; Systolic; Diabetes - IDDM; Hypertensive disorder; kidney vc1 disease; CKD 3; - PSHx: 21:49 Cholecystectomy; vc1 - Immunization history:: Adult Immunizations up to date, Client reports having NOT received the Covid vaccine. - Social history:: Smoking status: Patient denies any tobacco usage or history of. ROS: 22:01 Eyes: Negative for injury, pain, redness, and discharge, ENT: Negative for injury, felix pain, and discharge, Neck: Negative for injury, pain, and swelling, Abdomen/GI: Negative for abdominal pain, nausea, vomiting, diarrhea, and constipation, Back: Negative for injury and pain, : Negative for injury, bleeding, discharge, and swelling, MS/Extremity: Negative for injury and deformity, Neuro: Negative for headache, weakness, numbness, tingling, and seizure, Psych: Negative for depression, anxiety, suicide ideation, homicidal ideation, and hallucinations, Allergy/Immunology: Negative for hives, rash, and allergies, Endocrine: Negative for neck swelling, polydipsia, polyuria, polyphagia, and marked weight changes, Hematologic/Lymphatic: Negative for swollen nodes, abnormal bleeding, and unusual bruising. 22:01 Constitutional: Positive for body aches, chills, fatigue, fever, malaise. 22:01 Cardiovascular: Positive for palpitations. 22:01 Respiratory: Positive for cough, shortness of breath, wheezing, expiratory. 22:01 MS/extremity: Positive for swelling, of the right leg and left leg. 22:01 Skin: Positive for diaphoresis, swelling, of the right leg and left leg. Exam: 22:01 Eyes: Pupils equal round and reactive to light, extra-ocular motions intact. Lids and felix lashes normal. Conjunctiva and sclera are non-icteric and not injected. Cornea within normal limits. Periorbital areas with no swelling, redness, or edema. 22:01 Cardiovascular: Rate: tachycardic, actual rate is 143 bpm, Rhythm: regular, Pulses: Pulses are 4+ in left popliteal artery, bilateral radial, brachial, femoral, popliteal, posterior tibial and and dorsalis pedis arteries.. Heart sounds: normal, Edema: 1+ edema to level of left midcalf and right midcalf, JVD: is noted bilaterally, to 1 cm. 22:57 ECG was reviewed by the Attending Physician. [facility] Vital Signs: 21:46 Weight 86.18 kg; Height 5 ft. 10 in. (177.80 cm); Pain 8/10; vc1 21:48 Pulse 143 MON; Resp 26 S; Temp 100.1(O); Pulse Ox 94% on R/A; mb4 22:10 BP 193 / 161 LA Sitting (auto/reg); Pulse 138 MON; Resp 26 S; Pulse Ox 100% on BiPAP; mb4 22:30 BP 166 / 81; Pulse 115; Resp 18 A; Pulse Ox 100% on BiPAP; aa9 23:15 BP 117 / 78; Pulse 117; Resp 18 A; Pulse Ox 100% on BiPAP; aa9 23:51 Temp 98.8(O); aa9 23:52 Temp 98.8(O); aa9 07/18 05:02 BP 111 / 55; Pulse 81; Resp 18; Temp 97.8(O); Pulse Ox 100% on BiPAP; aa9 07/17 21:46 Body Mass Index 27.26 (86.18 kg, 177.80 cm) vc1 MDM: 07/17 21:45 Patient medically screened. felix 22:04 Differential Diagnosis: Obstructed Airway Bronchitis Influenza Upper Respiratory felix Infection Sinusitis Pharyngitis Viral Syndrome Pneumonia. Data reviewed: vital signs, nurses notes, lab test result(s), EKG, radiologic studies, plain films. 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 Test interpretation: by ED physician or midlevel provider: ECG, plain radiologic studies. Counseling: I had a detailed discussion with the patient and/or guardian regarding: the historical points, exam findings, and any diagnostic results supporting the discharge/admit diagnosis, lab results, radiology results. 07/17 22:00 Order name: Basic Metabolic Panel; Complete Time: 22:54 [facility] 07/17 22:00 Order name: CBC with Diff; Complete Time: 22:42 [facility] 07/17 22:00 Order name: LFT's; Complete Time: 22:54 [facility] 07/17 22:00 Order name: Magnesium; Complete Time: 22:54 [facility] 07/17 22:00 Order name: NT PRO-BNP; Complete Time: 22:54 [facility] 07/17 22:00 Order name: PT-INR; Complete Time: 22:42 [facility] 07/17 22:00 Order name: Troponin HS; Complete Time: 22:54 [facility] 07/17 22:00 Order name: Lipase; Complete Time: 22:54 [facility] 07/17 22:00 Order name: Blood Culture Adult (2) [facility] 07/17 22:00 Order name: Lactate w/ 2H reflex if indic.; Complete Time: 22:42 [facility] 07/17 22:00 Order name: COVID-19/FLU A+B; Complete Time: 23:58 [facility] 07/18 07:29 Order name: Hemoglobin A1c [facility] 07/18 07:37 Order name: CBC with Automated Diff [facility] 07/18 07:38 Order name: Comprehensive Metabolic Panel [facility] 07/17 22:00 Order name: XRAY Chest (1 view) [facility] 07/17 22:01 Order name: BIPAP [facility] 07/18 07:38 Order name: Troponin High Sensitivity [facility] 07/18 07:38 Order name: Lipid Profile [facility] 07/18 07:49 Order name: US [facility] 07/17 22:00 Order name: EKG; Complete Time: 22:00 [facility] 07/17 22:00 Order name: Cardiac monitoring; Complete Time: 22:45 [facility] 07/17 22:00 Order name: EKG - Nurse/Tech; Complete Time: 22:45 [facility] 07/17 22:00 Order name: IV Saline Lock; Complete Time: 22:45 [facility] 07/17 22:00 Order name: Labs collected and sent; Complete Time: 23:26 [facility] 07/17 22:00 Order name: O2 Per Protocol; Complete Time: 22:45 [facility] 07/17 22:00 Order name: O2 Sat Monitoring; Complete Time: 22:46 [facility] 07/17 22:01 Order name: Ventura; Complete Time: 23:48 [facility] 07/17 22:36 Order name: Vital Signs; Complete Time: 23:33 [facility] EC:57 Rate is 119 beats/min. Rhythm is regular. QRS [place] is Normal. NV interval is normal. felix QRS interval is normal. QT interval is normal. No Q waves. T waves are Normal. ST Segment is depressed in leads II, III, aVF, V5, V6. Clinical impression: Abnormal EKG without significant change and Sinus tachycardia. Interpreted by me. Reviewed by me. Administered Medications: 22:00 CANCELLED (Duplicate Order): NS 0.9% 1000 ml IV at 125 ml/hr continuous felix 22:01 CANCELLED (Duplicate Order): NS 0.9% 1000 ml IV at 1 bolus Per protocol; 1000 mL bolus [facility] 22:45 Drug: Rocephin (cefTRIAXone) 2 grams Route: IV; Rate: per protocol; Site: left forearm; aa9 23:52 Follow up: Response: No adverse reaction; IV Status: Completed infusion; IV Intake: [id number] 22:45 Drug: Zithromax (azithromycin) 500 mg Route: IVPB; Infused Over: 1 hrs; Site: left aa9 forearm; 23:52 Follow up: Response: No adverse reaction; IV Status: Completed infusion; IV Intake: aa9 250ml 22:45 Drug: Lasix (furosemide) 60 mg Route: IVP; Site: left forearm; aa9 23:52 Follow up: Response: No adverse reaction 22:45 Drug: Nitro-Bid (nitroglycerin) Ointment 2 % 1 inches Route: Transdermal; Site: aa9 anterior chest wall; 22:45 Drug: morphine 2 mg Route: IVP; Infused Over: 4 mins; Site: left forearm; aa9 23:52 Follow up: Response: No adverse reaction 9 22:45 Drug: Zofran (Ondansetron) 4 mg Route: IVP; Site: left forearm; aa9 23:51 Follow up: Response: No adverse reaction aa9 22:59 Drug: Tylenol 1000 mg Route: PO; aa9 23:52 Follow up: Temp 98.8 Oral; Response: No adverse reaction 9 07/18 00:39 Drug: Tamiflu (oseltamivir) 75 mg Route: PO; aa9 02:43 Follow up: Response: No adverse reaction aa9 01:05 Drug: Aspirin Chewable Tablet 324 mg Route: PO; aa9 02:43 Follow up: Response: No adverse reaction aa9 Disposition Summary: 07/17/22 22:57 Hospitalization Ordered Hospitalization Status: Inpatient Admission felix Provider: Segundo Shultz cha Condition: Fair felix Problem: new felix Symptoms: have improved felix Bed/Room Type: Standard felix Location: Telemetry/MedSurg (Inpatient)(07/18/22 07:52) bd Room Assignment: 406(07/18/22 07:52) bd Diagnosis - Unspecified combined systolic (congestive) and diastolic (congestive) heart failure felix - Essential (primary) hypertension felix - Unspecified kidney failure - chronic felix - Non ST elevation [place] felix - Fever, unspecified felix - Type 2 diabetes mellitus with hyperglycemia felix - Influenza due to identified novel influenza A virus felix Forms: - Medication Reconciliation Form felix - SBAR form felix Signatures: Dispatcher [employer] EDLa Jama Corey, MD MD cha Attema, Lee, CELL TESTER-C CELL TESTER-Cla1 Ameean Rodriguez RN RN cg Michelle Desai RN RN vc1 Sirisha Viveros RN RN aa9 Corrections: (The following items were deleted from the chart) 07/17 22:00 22:00 NS 0.9% 1000 ml IV at 125 ml/hr continuous ordered. felix felix 22: 22:00 NS 0.9% 1000 ml IV at 1 bolus Per protocol; 1000 mL bolus ordered. felix felix 07/18 00:25 07/17 22:57 Telemetry/MedSurg (Inpatient) felix cg 07/18 00:25 07/17 22:57 felix cg 07/18 07:52 00:25 [facility] ER HOLD cg bd 00:25 ERHOLD- cg bd
--- NOTE | 2022-07-17 22:57 | ER ---
Nurse's Notes [facility] Name: Sylvain Veronica Age: 71 yrs Sex: Male : 1950 Arrival Date: 07/17/2022 Time: 21:35 Bed 15 Private MD: Diagnosis: Unspecified combined systolic (congestive) and diastolic (congestive) heart failure;Essential (primary) hypertension;Unspecified kidney failure-chronic;Non ST elevation [place];Fever, unspecified;Type 2 diabetes mellitus with hyperglycemia;Influenza due to identified novel influenza A virus Presentation: 07/17 21:46 Chief complaint: Patient states: "I started with a small cough the day before yesterday vc1 now tonight it my cough is really bad and every time I cough I poop myself.". Coronavirus screen: Vaccine status: Patient reports receiving the 2nd dose of the covid vaccine. Moderna Client denies travel out of the [place] in the last 14 days. cough unrelated to allergies, diarrhea, Client presents with at least one sign or symptom that may indicate coronavirus-19. Standard/surgical mask placed on the client. Provider contacted for isolation considerations. Ebola Screen: No symptoms or risks identified at this time. Risk Assessment: Do you want to hurt yourself or someone else? Patient reports no desire to harm self or others. Onset of symptoms was July 17, 2022. 21:46 Method Of Arrival: Ambulatory vc1 21:46 Acuity: JACKIE 3 vc1 21:51 Initial Sepsis Screen: Does the patient meet any 2 criteria? RR > 20 per min. HR > 90 vc1 bpm. Yes Does the patient have a suspected source of infection? Yes: Productive cough/pneumonia Acute abdominal pain. Triage Assessment: 21:55 General: Appears in no apparent distress. uncomfortable, Behavior is calm, cooperative. vc1 Respiratory: Onset: The symptoms/episode began/occurred gradually, the patient has moderate shortness of breath. Respiratory: Airway is patent Respiratory effort is even, unlabored, Respiratory pattern is regular, symmetrical, tachypnea. Historical: - Allergies: 21:49 No Known Allergies; vc1 - Home Meds: 21:49 insulin [Active]; Lasix Oral [Active]; vc1 - PMHx: 21:49 Congestive heart failure; Systolic; Diabetes - IDDM; Hypertensive disorder; kidney vc1 disease; CKD 3; - PSHx: 21:49 Cholecystectomy; vc1 - Immunization history:: Adult Immunizations up to date, Client reports having NOT received the Covid vaccine. - Social history:: Smoking status: Patient denies any tobacco usage or history of. Screenin:51 Abuse screen: Denies threats or abuse. Nutritional screening: No deficits noted. vc1 Tuberculosis screening: No symptoms or risk factors identified. Fall Risk None identified. Assessment: 21:52 General: Appears in no apparent distress. uncomfortable, ill, Behavior is calm, vc1 cooperative, appropriate for age. Pain: Complains of pain in chest and abdomen. Cardiovascular:. Respiratory: Airway is patent Respiratory effort is even, unlabored, Respiratory pattern is tachypnea Breath sounds are clear. GI: Reports lower abdominal pain, upper abdominal pain, diarrhea. : No deficits noted. EENT: No deficits noted. Derm: No deficits noted. 23:53 Reassessment: Patient appears in no apparent distress at this time. General: Appears aa9 uncomfortable, Behavior is calm, cooperative, appropriate for age. Neuro: Level of Consciousness is awake, alert, obeys commands, Oriented to person, place, time, situation. Cardiovascular: Rhythm is sinus tachycardia. Respiratory: Patient placed on BiPAP:. Derm: Skin is intact, with poor turgor. Vital Signs: 21:46 Weight 86.18 kg; Height 5 ft. 10 in. (177.80 cm); Pain 8/10; vc1 21:48 Pulse 143 MON; Resp 26 S; Temp 100.1(O); Pulse Ox 94% on R/A; mb4 22:10 BP 193 / 161 LA Sitting (auto/reg); Pulse 138 MON; Resp 26 S; Pulse Ox 100% on BiPAP; mb4 22:30 BP 166 / 81; Pulse 115; Resp 18 A; Pulse Ox 100% on BiPAP; aa9 23:15 BP 117 / 78; Pulse 117; Resp 18 A; Pulse Ox 100% on BiPAP; aa9 23:51 Temp 98.8(O); aa9 23:52 Temp 98.8(O); aa9 07/18 05:02 BP 111 / 55; Pulse 81; Resp 18; Temp 97.8(O); Pulse Ox 100% on BiPAP; aa9 07/17 21:46 Body Mass Index 27.26 (86.18 kg, 177.80 cm) vc1 ED Course: 07/17 21:35 Patient arrived in ED. [id number] 21:45 Leonel Almazan MD is Attending Physician. felix 21:49 Triage completed. vc1 21:54 Arm band placed on right wrist. vc1 21:55 Patient has correct armband on for positive identification. Bed in low position. Client vc1 placed on continuous cardiac and pulse oximetry monitoring. NIBP monitoring applied. 21:56 Missed attempt(s): 20 gauge in left forearm. Bleeding controlled, band aid applied, mb4 catheter tip intact. 22:02 Initial lab(s) drawn, by me, sent to lab. mb4 22:03 paged RT for BIPAP. mw2 22:06 Oxygen administration via non-rebreather mask 12L/min. mb4 22:11 Inserted saline lock: 22 gauge in left antecubital area, using aseptic technique. Blood mb4 collected. 22:12 Safety checks: Family/friend present: yes. Family/friends encouraged to stay with mb4 patient. Head of bed elevated. 22:19 Sirisha Viveros, RN is Primary Nurse. aa9 22:54 XRAY Chest (1 view) In Process Unspecified. EDMS 22:55 Segundo Shultz MD is Hospitalizing Provider. felix 23:00 COVID-19/FLU A+B Sent. aa9 23:33 COVID-19/FLU A+B Sent. aa9 23:50 Ventura cath inserted, using sterile technique, 16 Fr., by ma, balloon inflated, to aa9 gravity drainage, returned clear yellow urine. Patient tolerated well. 07/18 00:16 Door closed. Noise minimized. Lights dimmed. Pillow given. PO fluids given. aa9 05:52 No provider procedures requiring assistance completed. aa9 05:53 Patient admitted, IV remains in place. aa9 10:07 Report given to CHUCK Kat on 4th floor. ko1 Administered Medications: 07/17 22:00 CANCELLED (Duplicate Order): NS 0.9% 1000 ml IV at 125 ml/hr continuous felix 22:01 CANCELLED (Duplicate Order): NS 0.9% 1000 ml IV at 1 bolus Per protocol; 1000 mL bolus felix 22:45 Drug: Rocephin (cefTRIAXone) 2 grams Route: IV; Rate: per protocol; Site: left forearm; aa9 23:52 Follow up: Response: No adverse reaction; IV Status: Completed infusion; IV Intake: [id number] 22:45 Drug: Zithromax (azithromycin) 500 mg Route: IVPB; Infused Over: 1 hrs; Site: left aa9 forearm; 23:52 Follow up: Response: No adverse reaction; IV Status: Completed infusion; IV Intake: aa9 250ml 22:45 Drug: Lasix (furosemide) 60 mg Route: IVP; Site: left forearm; aa9 23:52 Follow up: Response: No adverse reaction aa9 22:45 Drug: Nitro-Bid (nitroglycerin) Ointment 2 % 1 inches Route: Transdermal; Site: aa9 anterior chest wall; 22:45 Drug: morphine 2 mg Route: IVP; Infused Over: 4 mins; Site: left forearm; aa9 23:52 Follow up: Response: No adverse reaction aa9 22:45 Drug: Zofran (Ondansetron) 4 mg Route: IVP; Site: left forearm; aa9 23:51 Follow up: Response: No adverse reaction aa9 22:59 Drug: Tylenol 1000 mg Route: PO; aa9 23:52 Follow up: Temp 98.8 Oral; Response: No adverse reaction aa9 07/18 00:39 Drug: Tamiflu (oseltamivir) 75 mg Route: PO; aa9 02:43 Follow up: Response: No adverse reaction aa9 01:05 Drug: Aspirin Chewable Tablet 324 mg Route: PO; aa9 02:43 Follow up: Response: No adverse reaction aa9 Medication: 07/17 21:53 VIS not applicable for this client. vc1 Intake: 23:52 IV: 250ml; Total: 250ml. aa9 23:52 IV: 10ml; Total: 260ml. aa9 Outcome: 22:57 Decision to Hospitalize by Provider. [facility] 07/18 05:51 Admitted to ER Hold. Please see [facility] for further documentation. aa9 Condition: stable Instructed on the need for admit. 10:57 Patient left the ED. iw Signatures: Dispatcher [employer] Leonel Ford MD MD cha Williams, Irene, RN RN iw [place], MyKena 2 Maddison Mcdowell4 Jeanne Restrepo Michelle, RN RN vc1 Sirisha Viveros, RN RN aa9 Anat Hebert, RN RN ko1
[2022-07-17 23:43] LABS: SARS-COV-2 RT PCR NEGATIVE (NEGATIVE)
[2022-07-18] MEDS ORDERED: OSELTAMIVIR 75 MG CAP ONE (00:19)
[2022-07-18] MEDS ORDERED: ASPIRIN 81 MG CHEWABLE TABLET ONE (00:40)
--- NOTE | 2022-07-18 00:49 | P.HP ---
Certification for Inpatient Patient admitted to: Inpatient With expected LOS: >2 Midnights Patient will require the following post-hospital care: None Practitioner: I am a practitioner with admitting privileges, knowledge of patient current condition, hospital course, and medical plan of care. Services: Services provided to patient in accordance with Admission requirements found in Title 42 Section 412.3 of the Code of Federal Regulations <JuanaJesus Mckeon - Last Filed: 07/18/22 00:42> Patient History Date of Service: 07/18/22 Reason for admission: CHF exacerbation, influenza History of Present Illness: 71-year-old male with history of chronic systolic congestive heart failure, diabetes mellitus type 2insulin-dependent, hypertension, CKD presents to the emergency department in respiratory distress. He reports feeling unwell the last couple days with cough, malaise. Upon arrival to the emergency department patient was hypertensive, tachycardic, tachypneic with low-grade fever. Patient was immediately placed on BiPAP given Nitropaste, Lasix. He improved rapidly during his stay in the emergency department he is feeling much better his labs were significant for white blood cell count 12.2 hemoglobin 11.1 hematocrit 33. 6 creatinine 2.47 GFR 28 BUN 43 patient's creatinine has been trending up relatively steadily from June 2021 until now, he denies being seen by nephrology previously on an outpatient basis. His high-sensitivity troponin was 81.8, BNP 6133 he tested positive for influenza A. In the emergency department he was also given Rocephin, Zithromax, Tamiflu. Chest x-ray showed bilateral pulmonary edema. ED progress is to admit for viral sepsis, CHF exacerbation, NSTEMI. - Past Medical/Surgical History Diabetic: Yes -: Diabetes mellitus type 2insulin-dependent -: Hypertension -: Chronic systolic CHF -: CAD -: CKD 3 -: Cholecystectomy -: 2 stents Psychosocial/ Personal History: Patient is . Lives at home. - Family History Father -: Diabetes Mother -: Diabetes - Social History Alcohol use: Yes CD- Drugs: No Caffeine use: Yes Place of Residence: Home <Jesus Arias - Last Filed: 07/18/22 00:42> Date of Service: 07/18/22 <Segundo Shultz - Last Filed: 07/18/22 09:54> Allergies No Known Allergies Allergy (Verified 12/28/20 20:31) Home Medications: RX: Valsartan [Diovan] 80 mg PO DAILY #30 tablet 06/18/21 Furosemide [Lasix] 40 mg PO DAILY #30 tab 05/20/22 RX: ARIPiprazole [Aripiprazole] 10 mg PO BEDTIME 05/20/22 carvediloL [Coreg] 3.125 mg PO BID #60 tab 05/20/22 Review of Systems 10-point ROS is otherwise unremarkable General: Fever, Chills, Weakness, Malaise Respiratory: Cough, Shortness of Breath, SOB with Excertion Cardiovascular: Orthopnea <Jesus Arias - Last Filed: 07/18/22 00:42> Physical Examination - Physical Exam General: Alert, In no apparent distress, Oriented x3 HEENT: Atraumatic, PERRLA, Mucous membr. moist/pink, EOMI, Sclerae nonicteric Neck: Supple, 2+ carotid pulse no bruit, No LAD, Without JVD or thyroid abnormality Respiratory: Diminished, Crackles/rales Cardiovascular: No edema, Regular rate/rhythm, Normal S1 S2 Capillary refill: <2 Seconds Gastrointestinal: Normal bowel sounds, No tenderness Musculoskeletal: No tenderness Integumentary: No rashes Neurological: Normal speech, Normal strength at 5/5 x4 extr, Normal tone, Normal affect - Studies Laboratory Data (last 24 hrs) 07/17/22 22:03: PT 12.8 H, INR 1.16 07/17/22 22:03: WBC 12.20 H, Hgb 11.1 L, Hct 33.6 L, Plt Count 217 07/17/22 22:03: Sodium 141, Potassium 3.7, BUN 43 H, Creatinine 2.47 H, Glucose 202 H, Magnesium 2.0, Total Bilirubin 0.6, AST 17, ALT 28, Alkaline Phosphatase 113, Lipase 180 <Jesus Arias - Last Filed: 07/18/22 00:42> - Studies Laboratory Data (last 24 hrs) 07/17/22 22:03: PT 12.8 H, INR 1.16 07/17/22 22:03: WBC 12.20 H, Hgb 11.1 L, Hct 33.6 L, Plt Count 217 07/17/22 22:03: Sodium 141, Potassium 3.7, BUN 43 H, Creatinine 2.47 H, Glucose 202 H, Magnesium 2.0, Total Bilirubin 0.6, AST 17, ALT 28, Alkaline Phosphatase 113, Lipase 180 <Segundo Shultz - Last Filed: 07/18/22 09:54> Assessment and Plan - Plan Assessment: Acute on chronic decompensated systolic congestive heart failure NSTEMI Severe sepsis-viral secondary to influenza A DM mellitus type II-insulin dependent with hyperglycemia and non-compliance SANTOS on CKD III Plan: Acute on chronic decompensated systolic congestive heart failure: Continue IV lasix, echo ordered, cardiology consult, much improved vitals and respiratory status. Hold valsartan given SANTOS, will restart coreg. NSTEMI: Continue as above, suspect demand ischemia, trend trops, given ASA in ED. Cardiology consult. Severe sepsis-viral secondary to influenza A: Tamiflu ordered. No hypotension or lactic acidosis. DM mellitus type II-insulin dependent with hyperglycemia and non-compliance: A1c in AM, pt without insulin the last month. SSI. SANTOS on CKD III: Suspect CRS/CKD, continue with diuresis, nephrology consulted. DVT PPX: Heparin Code status: Full Discharge Plan: Home Plan to discharge in: 72 Hours - Advance Directives Does patient have a Living Will: No Does patient have a Durable POA for Healthcare: No - Code Status/Comfort Care Code Status Assessed: Yes (Full code) Critical Care: No Time Spent Managing Pts Care (In Minutes): 70 <Jesus Arias - Last Filed: 07/18/22 00:42> Physician Review: Patient Assessed, Agree with Above Assessment and Plan <Segundo Shultz - Last Filed: 07/18/22 09:54>
[2022-07-18] MEDS ORDERED: ONDANSETRON 4 MG/2 ML VIAL IV PRN (05:09)
[2022-07-18] MEDS: carvediloL 3.125 MG TAB PO SCH ×2 (06:00→16:42)
[2022-07-18] MEDS: ACETAMINOPHEN 325 MG TABLET PO PRN ×2 (06:25→16:40)
[2022-07-18] MEDS: BENZONATATE 100 MG CAP PO PRN ×2 (06:25→23:15)
[2022-07-18] MEDS ORDERED: carvediloL 6.25 MG TAB ONE (06:28)
--- NOTE | 2022-07-18 06:37 | P.CNS ---
Date of Consult: 07/18/22 Reason for Consult: Abnormal renal function Chief Complaint: CHF exacerbation, influenza History of Present Illness: 71-year-old male with history of progressive CKD III , Cr 1.0 in 2019, 1.8 in 09/2021 and 2.0 in last April, chronic systolic congestive heart failure on laisx , diabetes mellitus type 2insulin-dependent, and hypertension on Valsartan Who presented to the emergency department in respiratory distress. pt was had flu like symptoms for the last few days, in ER was tachycardic, tachypneic with low-grade fever. Patient was immediately placed on BiPAP and received lasix, pt starts feeling better after the treatment, in ER . white blood cell count 12.2 hemoglobin 11.1 hematocrit 33. 6 creatinine 2.47 GFR 28 BUN 43 , pt tested posityive for influenza A, CXR showed Pulmoinary edema, pt denied any recent travel or sick contact, NSAID intake or recent contrast exposure ROS General : fever, HEENT: Denies dry, vision changes and headache Resp: SOB, cough Cardiovascular: : denies chest pain, palpitation GI: denies abdominal pain, diarrhea or constipation : denies dysuria, urgency, foamy urine or blood tinged urine Muscloskeltal: denies muscle aches, joint pain Endo: denies polyuria and and polydipsia Extre: denies pain numbness and swelling Physical exam General: AAOx3, HEET: no changes in vision, moist mucous membrane neck supple, no elevated JVD CHEST; basal rales HEART : RRR. Normal S1,2 no murmur or rub Abd: soft, Nt Ext: no edema Skin : No rash A/p #SANTOS on CKD III vs progressive CKD III Cr 1.0 in 2019, 1.8 in 09/2021 and 2.0 in last April pt likely have progressive CKD cont to hold Valsartan renal diet renal dose medication F/U US report will order UA , and urine lytes avoid NSAID and contrast #Influenza Cont Tamiflu and supportive care #CHF rals likely from , pneumonia will reduce lasix low salt diet id Cr cont to be stable , then consider to start on Entresto #DM SSI #HTN COnt current medications avoid GRACE and ARBS at this time #elevated troponin possibly due to CKD Full Note to follow total time spent 65 minutes ,including documentation, reviewing labs and placing orders Allergies No Known Allergies Allergy (Verified 08/23/20 20:31) Home Medications: Valsartan [Diovan] 80 mg PO DAILY #30 tablet 06/18/21 ARIPiprazole [Aripiprazole] 10 mg PO BEDTIME 05/20/22 Furosemide [Lasix] 40 mg PO DAILY #30 tab 05/20/22 carvediloL [Coreg] 3.125 mg PO BID #60 tab 05/20/22 - Past Medical/Surgical History Diabetic: Yes -: Diabetes mellitus type 2insulin-dependent -: Hypertension -: Chronic systolic CHF -: CAD -: CKD 3 -: Cholecystectomy -: 2 stents Psychosocial/ Personal History: Patient is . Lives at home. - Family History Father Medical History: Diabetes Mother Medical History: Diabetes - Social History Smoking Status: Former smoker Alcohol use: Yes CD- Drugs: No Caffeine use: Yes Place of Residence: Home Physical Examination Temp Pulse Resp BP Pulse Ox 99.9 F 106 H 140/78 07/18/22 06:25 07/18/22 06:00 07/18/22 06:00 Laboratory Data (last 24 hrs) 07/17/22 22:03: PT 12.8 H, INR 1.16 07/17/22 22:03: WBC 12.20 H, Hgb 11.1 L, Hct 33.6 L, Plt Count 217 07/17/22 22:03: Sodium 141, Potassium 3.7, BUN 43 H, Creatinine 2.47 H, Glucose 202 H, Magnesium 2.0, Total Bilirubin 0.6, AST 17, ALT 28, Alkaline Phosphatase 113, Lipase 180
[2022-07-18 07:15] LABS: Absolute Lymphocytes (CBC) 0.4 K/uL (0.7-4.9); Hematocrit 28.9 % (39.6-49.0); Lymphocytes % 5.1 % (15.3-44.8); MCV 84.4 fL (80-100); MPV 8.3 fL (7.6-11.3); RBC Red Blood Cell Count 3.42 M/uL (4.33-5.43)
[2022-07-18 07:27] LABS: Albumin 3.3 g/dL (3.4-5.0); Bilirubin Total 0.5 mg/dL (0.2-1.0); Potassium 3.7 mmol/L (3.5-5.1); Protein, Total 6.8 g/dL (6.4-8.2)
[2022-07-18] MEDS: INSULIN -REGULAR HUMAN 50 UNIT/0.5 ML ML SQ SCH ×4 (07:30→20:59)
[2022-07-18 07:38] LABS: Troponin High Sensitivity 1411.2 pg/mL (<58.9)
--- NOTE | 2022-07-18 07:49 | RAD REPORT ---
EXAM DESCRIPTION: US - Renal Ultrasound-Complete - 07/18/2022 5:59 am CLINICAL HISTORY: Acute renal insufficiency COMPARISON: September 2021 FINDINGS: The right kidney measures 10 cm with a normal echotexture. The left kidney measures 11 cm with a normal echotexture. Hydronephrosis is not seen. The bladder is decompressed and not well visualized IMPRESSION: Unremarkable renal ultrasound.
[2022-07-18] MEDS ORDERED: PNEUMOCOCCAL VACCINE 0.5 ML IMVAC ONE ×2 (08:00→18:30)
[2022-07-18] MEDS ORDERED: INFLUENZA VACCINE (for 6+ mo) 0.5 ML DOSE IMVAC ONE ×2 (08:00→18:30)
[2022-07-18] MEDS: ASPIRIN EC 81 MG TAB PO SCH (09:00)
[2022-07-18] MEDS ORDERED: HEPARIN 5000 UNIT/ML 1 ML VIAL SQ SCH (09:00)
[2022-07-18] MEDS: FUROSEMIDE 40 MG/4 ML VIAL IV SCH ×2 (09:00→18:00)
[2022-07-18] MEDS: ENOXAPARIN 80 MG/0.8 ML SQ SCH ×2 (09:00→20:58)
[2022-07-18] MEDS ORDERED: FUROSEMIDE 40 MG/4 ML VIAL ONE (09:52)
[2022-07-18] MEDS ORDERED: ASPIRIN EC 81 MG TAB PO ONE (09:52)
[2022-07-18] MEDS ORDERED: ENOXAPARIN 80 MG/0.8 ML SQ ONE (09:53)
--- NOTE | 2022-07-18 13:47 | EKG ---
Test Date: 2022-07-17 Test Time: 22:33:02 Director Of Contracts: JOCE MEASUREMENT RESULTS: Intervals: Rate: 119 WA: 162 QRSD: 86 QT: 336 QTc: 472 [place]: P: 43 WA: 162 QRS: 56 T: 60 INTERPRETIVE STATEMENTS: Sinus tachycardia Nonspecific ST abnormality Abnormal ECG Compared to ECG 05/20/2022 03:56:09 No significant changes Electronically Signed On 07-18-22 13:46:42 GUITAR MAKER HAND by Arie Bragg
--- NOTE | 2022-07-18 15:02 | CON ---
Date of Consultation: 07/18/[address] Shultz on 07/18/2022. I saw the patient on 07/18/2022. Reason For Consultation: Congestive heart failure, acute kidney injury and flu. History Of Present Illness: Mr. Veronica came in with shortness of breath. No chest pain. Denies naus ea, vomiting. Has diaphoresis. Denied any diarrhea. Denied any PND or orthopnea, but has had pedal edema. He is feeling better after diuresis. He is known to have chronic systolic congestive heart failure with an ejection fraction of 32% recently. In 2019, underwent a stent of his RCA and LAD by Dr. Bragg. He denied any chest pain. His troponin was mildly elevated, probably secondary to renal failure. BNP was 6133. He tested positive for flu A. On 100% CPAP BiPAP, he was asymptomatic with adequate O2 saturation. Creatinine is 2.47. Past Medical History: Includes CHF, diabetes, hypertension, chronic kidney disease, CAD, status post stents. Allergies: NONE. Review of Systems: Negative. Social History: Negative. Family History: Negative. Medications: Include Lasix, Diovan, Coreg. Physical Examination: Vital Signs: Stable. Afebrile. HEENT: Negative. Neck: Supple with no bruit. Chest: Clear. Cardiac: Revealed regular rhythm and rate with an S3 gallops. No murmurs or rubs. Abdomen: Benign. Extremities: Revealed no clubbing, cyanosis, or edema. Diagnostic Data: As stated earlier EKG is nonspecific. Impression And Plan: 1.Acute on chronic systolic congestive heart failure. 2.Acute on chronic kidney injury. 3.Flu A. 4.Coronary artery disease, status post stents in the RCA and LAD. 5.Diabetes. 6.Hypertension. I will continue his Lasix, Diovan and Coreg. Another echocardiogram is pending. Nephrology consulta tion is pending. I think it would be reasonable for Mr. Veronica to have a Lexiscan as an outpatient. I will make arrangements for that. No need to do a heart catheterization at this point. MOUSTAPHA/NEYDA Voice ID: [id number] Report ID: [id number]
--- NOTE | 2022-07-18 15:25 | RAD REPORT ---
EXAM DESCRIPTION: RAD - Chest Single View - 07/17/2022 10:52 pm CLINICAL HISTORY: The patient is 71 years old and is Male; Cough TECHNIQUE: Frontal view of the chest. COMPARISON: 05/20/2022 chest radiograph FINDINGS: LUNGS: Diffuse bilateral perihilar and interstitial hazy opacities, not significantly ch anged compared to prior exam, favoring pulmonary edema, though an infectious process could have a sim ilar appearance. PLEURAL SPACE: No definite pleural effusion. No pneumothorax or pneumomediastinum. HEART: Stable. MEDIASTINUM: See above. BONES/JOINTS: Unremarkable. IMPRESSION: Diffuse bilateral perihilar and interstitial hazy opacities, not significantly changed c ompared to prior exam, favoring pulmonary edema, though an infectious process could have a similar ap pearance. Electronically signed by: Cristiano Millan MD 07/17/2022 11:45 PM USPS LETTER CARRIER Due to temporary technical issues with the PACS/Fluency reporting system, reports are being signed by the in house radiologists without review as a courtesy to insure prompt reporting. The interpreting radiologist is fully responsible for the content of the report.
[2022-07-18] MEDS: OSELTAMIVIR 30 MG CAP PO SCH (20:59)
[2022-07-18] MEDS: ATORVASTATIN 40 MG TAB PO SCH (20:59)
[2022-07-19 02:58] LABS: UR PROTEIN 124.4 mg/dL (<11.9); Urine Protein/Creatinine Ratio 1.37 ratio (<0.15)
[2022-07-19 03:58] LABS: Specific Gravity 1.013 (1.005-1.030); Urine Bilirubin NEGATIVE (Negative); Urine Blood 3+ (Negative); Urine Clarity Turbid (Clear); Urine Color Light-Yellow (Yellow); Urine Glucose NEGATIVE (Negative); Urine Mucus Slight /HPF (None Seen); Urine Protein 1+ (Negative); Urine RBC 21-50 /HPF (None Seen); Urine Urobilinogen Normal (Normal)
[2022-07-19 04:32] LABS: Absolute Lymphocytes (CBC) 0.5 K/uL (0.7-4.9); Hematocrit 28.2 % (39.6-49.0); Lymphocytes % 7.3 % (15.3-44.8); MCV 84.5 fL (80-100); RBC Red Blood Cell Count 3.34 M/uL (4.33-5.43)
[2022-07-19 04:58] VITALS: BMI 27.1
[2022-07-19 05:42] LABS: Albumin 3.2 g/dL (3.4-5.0); Bilirubin Total 0.8 mg/dL (0.2-1.0); Potassium 3.2 mmol/L (3.5-5.1)
[2022-07-19] MEDS: carvediloL 3.125 MG TAB PO SCH ×2 (06:00→17:31)
[2022-07-19] MEDS: INSULIN -REGULAR HUMAN 50 UNIT/0.5 ML ML SQ SCH ×4 (07:30→21:00)
[2022-07-19] MEDS: FUROSEMIDE 40 MG/4 ML VIAL IV SCH ×2 (09:12→17:31)
[2022-07-19] MEDS: ASPIRIN EC 81 MG TAB PO SCH (09:13)
[2022-07-19] MEDS: ENOXAPARIN 80 MG/0.8 ML SQ SCH (09:13)
--- NOTE | 2022-07-19 11:39 | ECHO ---
HEIGHT: 5 ft 10 in WEIGHT: 189 lb 0 oz DATE OF STUDY: 07/19/[address]: Jesus Arias NP 2-DIMENSIONAL: YES M.MODE: YES DOPPLER: YES COLOR FLOW: YES TDS: PORTABLE: YES DEFINITY: BUBBLE STUDY: DIAGNOSIS: CONGESTIVE HEART FAILURE/ NON ST ELEVATION MYOCARDIAL INFARCTION CARDIAC HISTORY: CATHERIZATION: YES SURGERY: PROSTHETIC VALVE: PACEMAKER: MEASUREMENTS (cm) DIASTOLIC (NORMALS) SYSTOLIC (NORMALS) IVSd 1.1 (0.6-1.2) LA Diam 3.6 (1.9-4.0) LVEF 31% LVIDd 4.9 (3.5-5.7) LVIDs 4.2 (2.0-3.5) %FS 14% LVPWd 1.3 (0.6-1.2) Ao Diam 3.3 (2.0-3.7) 2 DIMENSIONAL ASSESSMENT: RIGHT ATRIUM: NORMAL LEFT ATRIUM: NORMAL RIGHT VENTRICLE: NORMAL LEFT VENTRICLE: NORMAL SIZE TRICUSPID VALVE: NORMAL MITRAL VALVE: NORMAL PULMONIC VALVE: NORMAL AORTIC VALVE: NORMAL PERICARDIAL EFFUSION: NONE AORTIC ROOT: NORMAL LEFT VENTRICULAR WALL MOTION: SEVERE GLOBAL HYPOKINESIS DOPPLER/COLOR FLOW: MILD MITRAL REGURGITATION COMMENTS: 1. SEVERE GLOBAL HYPOKINESIS 2. MILD TRICUSPID REGURGITATION 3. NO THROMBUS 4. EJECTION FRACTION 31% TECHNOLOGIST: TOM BENTON
--- NOTE | 2022-07-19 14:48 | P.PN ---
Subjective Date of Service: 07/19/22 Chief Complaint: CHF exacerbation, influenza Subjective: No new changes Physical Examination - Vital Signs Temperature: 98.2 F Blood Pressure: 124/75 Pulse: 86 Respirations: 18 Pulse Ox (%): 99 - Physical Exam General: Other (Appears as his stated age) HEENT: Atraumatic, Normocephalic Neck: Supple Respiratory: Other (Symmetric chest expansion) Cardiovascular: No rubs, No murmurs Gastrointestinal: Soft and benign, No guarding Musculoskeletal: No clubbing Integumentary: No warmth Neurological: Normal tone Urinary: Other (No bladder distention) External genitalia: Deferred Rectal: Deferred Assessment And Plan - Plan # SANTOS 2/2 prerenal state/ATN on CKD III vs progressive CKD III Cr 1.0 in 2019, 1.8 in 09/2021 and 2.0 in last April SCr 2.5 on adm, at 2.6 today pt likely have progressive CKD. F/u serum iPTH. Renal US unremarkable CPK not sig elevated, no rhabdo Urinalysis +proteinuria +hematuria no pyuria Urine chem non prerenal, +Mild proteinuria 1.4g on random UPCR F/u serum iPTH to help assess kidney dse chronicity cont to hold Valsartan Renal diet renal dose medication avoid NSAID and contrast # Influenza Cont Tamiflu and supportive care # CHF rals likely from , pneumonia BNP sig elevated Lasix, low salt diet # DM SSI # HTN Cont current medications avoid GRACE and ARBS at this time Physician Review: Patient Assessed, Agree with Above Assessment and Plan
--- NOTE | 2022-07-19 18:18 | P.PN ---
Subjective Date of Service: 07/19/22 Chief Complaint: CHF exacerbation, influenza No acute events overnight. He reports persistent shortness of breath; although, it is gradually improving. He reports orthopnea and cough. He denies chest pain or palpitations. Review of Systems 10-point ROS is otherwise unremarkable Respiratory: Cough, Dry, Shortness of Breath Cardiovascular: Orthopnea Physical Examination - Vital Signs Temperature: 98.7 F Blood Pressure: 116/57 Pulse: 79 Respirations: 18 Pulse Ox (%): 98 - Physical Exam General: Alert, In no apparent distress, Oriented x3 HEENT: Atraumatic, PERRLA, Mucous membr. moist/pink, EOMI, Sclerae nonicteric Neck: Supple, JVD distended Respiratory: Diminished, Crackles/rales (bibasilar) Cardiovascular: Regular rate/rhythm, Normal S1 S2, No gallops, No rubs, No murmurs, Edema (1-2+ BLE) Gastrointestinal: Normal bowel sounds, Soft and benign, Non-distended, No tend erness, No rebound, No guarding Musculoskeletal: No clubbing Integumentary: No rashes Neurological: Normal speech, Cranial nerves 3-12 intact, Normal affect Assessment And Plan - Plan # Acute on Chronic Decompensated Systolic Congestive Heart Failure with Reduced Ejection Fraction (LVEF 31 %) - Consult Cardiology and spoke with Dr. Mendoza - recommendations appreciated - Transthoracic echocardiogram = "1. severe global hypokinesis 2. mild tricuspid regurgitation 3. no thrombus 4. ejection fraction 31%." - Diuresis with IV furosemide - Continue home carvedilol - Consider sacubutril-valsartan once creatinine stabilized - Daily weights - Strict I/O - Cardiac diet, 2 L fluid restriction, 2 g Na restriction # Non-ST Segment Elevation Myocardial Infarction - Evaluation thus far: - EKG: without STEMI criteria, trend - Serial troponin: 81.8 -> 1411.2 -> 1643.2 -> 1494.9 -> 1656.0 -> 1517.4 - Transthoracic echocardiogram = "1. severe global hypokinesis 2. mild tricuspid regurgitation 3. no thrombus 4. ejection fraction 31%." - Chest x-ray = "diffuse bilateral perihilar and interstitial hazy opacities, not significantly changed compared to prior exam, favoring pulmonary edema, though an infectious process could have a similar appearance." - Management plan: - Consult Cardiology and spoke with Dr. Mendoza - recommendations appreciated - S/P aspirin 324 mg PO x 1 in ED - Continue aspirin, atorvastatin, carvedilol, enoxaparin - Hold GRACE-inhibitor/ARB due to elevated creatinine # Possible Acute Kidney Injury on Chronic Kidney Disease Stage III - Nephrology consulted - recommendations appreciated - Creatinine = 2.47 -> 2.43 -> 2.61 - Urinalysis = 3+ blood, 21-50 RBCs, 1+ protein - Renal ultrasound = "unremarkable renal ultrasound." - IV diuretics as mentioned above - Monitor creatinine and urine output - Renally dose medications # Viral Sepsis secondary to Influenza A Infection - Initial Lactate was 2.0 - Blood cultures drawn - Broad spectrum antibiotics not started due to viral infection - Started oseltamivir - In regards to fluids: - 30 mL/kg of IV fluids was not administered given SBP > 90, MAP > 65, lactic acid < 4 # Hyperglycemia in Type II Diabetes Mellitus - Hemoglobin A1c = 6.4 % - Correction scale insulin Segundo Shultz M.D.
[2022-07-19] MEDS: ATORVASTATIN 40 MG TAB PO SCH (21:50)
[2022-07-19] MEDS: OSELTAMIVIR 30 MG CAP PO SCH (21:51)
[2022-07-20] MEDS: carvediloL 3.125 MG TAB PO SCH ×2 (05:50→17:07)
[2022-07-20 05:56] LABS: Absolute Lymphocytes (CBC) 0.8 K/uL (0.7-4.9); Hematocrit 31.7 % (39.6-49.0); Lymphocytes % 22.9 % (15.3-44.8); MCV 83.2 fL (80-100); MPV 8.4 fL (7.6-11.3); RBC Red Blood Cell Count 3.81 M/uL (4.33-5.43)
[2022-07-20 06:13] LABS: Potassium 3.2 mmol/L (3.5-5.1)
[2022-07-20] MEDS: INSULIN -REGULAR HUMAN 50 UNIT/0.5 ML ML SQ SCH ×4 (07:30→21:31)
[2022-07-20] MEDS: FUROSEMIDE 40 MG/4 ML VIAL IV SCH (09:34)
[2022-07-20] MEDS: ENOXAPARIN 80 MG/0.8 ML SQ SCH (09:34)
[2022-07-20] MEDS: ASPIRIN EC 81 MG TAB PO SCH (09:34)
--- NOTE | 2022-07-20 11:22 | P.PN ---
Subjective Date of Service: 07/20/22 Chief Complaint: CHF exacerbation, influenza No acute events overnight. He reports that his shortness of breath and cough are gradually improving. He reports mild orthopnea. He denies chest pain or palpitations. Review of Systems 10-point ROS is otherwise unremarkable Respiratory: Cough, Shortness of Breath Cardiovascular: Orthopnea Physical Examination - Vital Signs Temperature: 98.8 F Blood Pressure: 111/67 Pulse: 83 Respirations: 16 Pulse Ox (%): 95 Assessment And Plan - Plan - Physical Exam General: Alert, In no apparent distress, Oriented x3 HEENT: Atraumatic, PERRLA, Mucous membr. moist/pink, EOMI, Sclerae nonicteric Neck: Supple, JVD distended Respiratory: Diminished, Crackles/rales (faint bibasilar) Cardiovascular: Regular rate/rhythm, Normal S1 S2, No gallops, No rubs, No murmurs, Edema (1-2+ BLE) Gastrointestinal: Normal bowel sounds, Soft and benign, Non-distended, No tenderness, No rebound, No guarding Musculoskeletal: No clubbing Integumentary: No rashes Neurological: Normal speech, Cranial nerves 3-12 intact, Normal affect # Acute on Chronic Decompensated Systolic Congestive Heart Failure with Reduced Ejection Fraction (LVEF 31 %) - Consult Cardiology - recommendations appreciated - Transthoracic echocardiogram = "1. severe global hypokinesis 2. mild tricuspid regurgitation 3. no thrombus 4. ejection fraction 31%." - Diuresis with IV furosemide - If he continues to diurese well, possible discharge tomorrow - Continue home carvedilol - Consider sacubutril-valsartan once creatinine stabilized - Daily weights - Strict I/O - Cardiac diet, 2 L fluid restriction, 2 g Na restriction # Non-ST Segment Elevation Myocardial Infarction - Evaluation thus far: - EKG: without STEMI criteria, trend - Serial troponin: 81.8 -> 1411.2 -> 1643.2 -> 1494.9 -> 1656.0 -> 1517.4 - Transthoracic echocardiogram = "1. severe global hypokinesis 2. mild tricuspid regurgitation 3. no thrombus 4. ejection fraction 31%." - Chest x-ray = "diffuse bilateral perihilar and interstitial hazy opacities, not significantly changed compared to prior exam, favoring pulmonary edema, though an infectious process could have a similar appearance." - Management plan: - Consult Cardiology - recommendations appreciated - S/P aspirin 324 mg PO x 1 in ED - Continue aspirin, atorvastatin, carvedilol, enoxaparin - Hold GRACE-inhibitor/ARB due to elevated creatinine # Possible Acute Kidney Injury on Chronic Kidney Disease Stage III - Nephrology consulted and sopke with Dr. Beatty - recommendations appreciated - Creatinine = 2.47 -> 2.43 -> 2.61 -> 2.84 - Urinalysis = 3+ blood, 21-50 RBCs, 1+ protein - Renal ultrasound = "unremarkable renal ultrasound." - IV diuretics as mentioned above - Monitor creatinine and urine output - Renally dose medications # Viral Sepsis secondary to Influenza A Infection - Initial Lactate was 2.0 - Blood cultures drawn - Broad spectrum antibiotics not started due to viral infection - Started oseltamivir - In regards to fluids: - 30 mL/kg of IV fluids was not administered given SBP > 90, MAP > 65, lactic acid < 4 # Hyperglycemia in Type II Diabetes Mellitus - Hemoglobin A1c = 6.4 % - Correction scale insulin Segundo Shultz M.D.
--- NOTE | 2022-07-20 13:14 | P.PN ---
Subjective Date of Service: 07/20/22 Chief Complaint: CHF exacerbation, influenza Subjective: No new changes Physical Examination - Vital Signs Temperature: 98.5 F Blood Pressure: 110/65 Pulse: 75 Respirations: 16 Pulse Ox (%): 99 - Physical Exam General: In no apparent distress HEENT: Atraumatic, Normocephalic Neck: Supple Respiratory: Clear to auscultation bilaterally Cardiovascular: No rubs, No murmurs Gastrointestinal: Soft and benign Musculoskeletal: No clubbing Integumentary: No warmth Neurological: Normal tone Urinary: Other (No bladder distention) External genitalia: Deferred Rectal: Deferred Assessment And Plan - Plan # SANTOS 2/2 prerenal state/ATN on CKD III vs progressive CKD III Cr 1.0 in 2019, 1.8 in 09/2021 and 2.0 in last April SCr 2.5 on adm, at 2.8 today Pt likely have progressive CKD. F/u serum iPTH. Renal US unremarkable CPK not sig elevated, no rhabdo Urinalysis +proteinuria +hematuria no pyuria Urine chem non prerenal, +Mild proteinuria 1.4g on random UPCR Serum iPTH sig elevated, indicative of progressive CKD vs subacute SANTOS cont to hold Valsartan Renal diet renal dose medication avoid NSAID and contrast # Influenza Received Tamiflu # HypoK Monitor # Secondary hyperPTH F/u 25OHD # CHF rals likely from , pneumonia BNP sig elevated Lasix, low salt diet # DM SSI # HTN Cont current medications avoid GRACE and ARBS at this time Physician Review: Patient Assessed, Agree with Above Assessment and Plan
[2022-07-20] MEDS: OSELTAMIVIR 30 MG CAP PO SCH (21:31)
[2022-07-20] MEDS: BENZONATATE 100 MG CAP PO PRN (21:31)
[2022-07-20] MEDS: ATORVASTATIN 40 MG TAB PO SCH (21:31)
[2022-07-21] MEDS: carvediloL 3.125 MG TAB PO SCH ×2 (06:21→17:44)
[2022-07-21 06:40] LABS: Magnesium 2.5 mg/dL (1.8-2.4); Troponin High Sensitivity 912.2 pg/mL (<58.9)
[2022-07-21] MEDS: INSULIN -REGULAR HUMAN 50 UNIT/0.5 ML ML SQ SCH ×4 (07:30→21:00)
[2022-07-21] MEDS ORDERED: POTASSIUM CL SA 10 MEQ TAB PO ONE (08:00)
[2022-07-21 08:56] LABS: Rheumatoid Factor POS (NEG)
[2022-07-21] MEDS: FUROSEMIDE 40 MG TABLET PO SCH (09:00)
[2022-07-21] MEDS: ENOXAPARIN 80 MG/0.8 ML SQ SCH (09:00)
[2022-07-21] MEDS: ASPIRIN EC 81 MG TAB PO SCH (09:08)
--- NOTE | 2022-07-21 14:43 | P.PN ---
Subjective Date of Service: 07/21/22 Chief Complaint: CHF exacerbation, influenza Subjective: No new changes Physical Examination - Vital Signs Temperature: 98 F Blood Pressure: 133/72 Pulse: 85 Respirations: 19 Pulse Ox (%): 99 - Physical Exam General: In no apparent distress HEENT: Atraumatic, Normocephalic Neck: Supple Respiratory: Clear to auscultation bilaterally Cardiovascular: No rubs, No murmurs Gastrointestinal: Soft and benign, No guarding Musculoskeletal: No clubbing Integumentary: No warmth Neurological: Normal speech, Normal tone Lymphatics: No axilla or inguinal lymphadenopathy Urinary: Other (No bladder distention) External genitalia: Deferred Rectal: Deferred Assessment And Plan - Plan # SANTOS 2/2 prerenal state/ATN on CKD III vs progressive CKD III Cr 1.0 in 2019, 1.8 in 09/2021 and 2.0 in last April SCr 2.5 on adm, still increasing, at 2.9 today Renal US unremarkable CPK not sig elevated, no rhabdo Urinalysis same findings of +proteinuria +hematuria no pyuria on repeat on 07/21 Urine chem non prerenal, +Mild proteinuria 1g on random UPCR Serum iPTH sig elevated, indicative of progressive CKD vs subacute SANTOS Has proteinuria & microhematuria of unclear etiology. Possible acute GN from influenza. GN workup sent. RF positive. If renal fxn continues to worsen, check cryoglobulins for possible cryoglobulinemia. Infxs/hepatitis panel pending. Hold Valsartan Renal diet # Influenza Received Tamiflu # HypoK Monitor # Secondary hyperPTH Monitor # Vit D deficiency Start D3 high dose repletion # CHF rals likely from , pneumonia BNP sig elevated Lasix, low salt diet # DM SSI # HTN Cont current medications avoid GRACE and ARBS at this time Physician Review: Patient Assessed, Agree with Above Assessment and Plan
[2022-07-21 16:02] LABS: UR PROTEIN 134.9 mg/dL (<11.9); Urine Protein/Creatinine Ratio 0.99 ratio (<0.15)
[2022-07-21 16:29] LABS: Specific Gravity 1.017 (1.005-1.030); Urine Bacteria <20 /HPF (<20); Urine Bilirubin NEGATIVE (Negative); Urine Blood 2+ (Negative); Urine Clarity Turbid (Clear); Urine Color Yellow (Yellow); Urine Glucose NEGATIVE (Negative); Urine Mucus Slight /HPF (None Seen); Urine Protein 2+ (Negative); Urine Urobilinogen Normal (Normal); Urine pH 5.5 (5.0-7.0)
--- NOTE | 2022-07-21 18:06 | P.PN ---
Subjective Date of Service: 07/21/22 Chief Complaint: CHF exacerbation, influenza No acute events overnight. He reports that his shortness of breath and cough continue to improve. However, his renal function continues to gradually worsen. He denies chest pain or palpitations. Review of Systems 10-point ROS is otherwise unremarkable Respiratory: Shortness of Breath (mild) Cardiovascular: Orthopnea (mild) Physical Examination - Vital Signs Temperature: 98.0 F Blood Pressure: 129/73 Pulse: 75 Respirations: 18 Pulse Ox (%): 100 Assessment And Plan - Plan - Physical Exam General: Alert, In no apparent distress, Oriented x3 HEENT: Atraumatic, PERRLA, Mucous membr. moist/pink, EOMI, Sclerae nonicteric Neck: Supple, JVD not distended Respiratory: Diminished, Clear to auscultation bilaterally Cardiovascular: Regular rate/rhythm, Normal S1 S2, No gallops, No rubs, No murmurs, Edema (1+ BLE) Gastrointestinal: Normal bowel sounds, Soft and benign, Non-distended, No tenderness, No rebound, No guarding Musculoskeletal: No clubbing Integumentary: No rashes Neurological: Normal speech, Cranial nerves 3-12 intact, Normal affect # Acute on Chronic Decompensated Systolic Congestive Heart Failure with Reduced Ejection Fraction (LVEF 31 %) - Consult Cardiology - recommendations appreciated - Transthoracic echocardiogram = "1. severe global hypokinesis 2. mild tricuspid regurgitation 3. no thrombus 4. ejection fraction 31%." - Transitioned from IV to PO furosemide - Continue home carvedilol - Consider sacubutril-valsartan once creatinine stabilized - Daily weights - Strict I/O - Cardiac diet, 2 L fluid restriction, 2 g Na restriction # Non-ST Segment Elevation Myocardial Infarction - Evaluation thus far: - EKG: without STEMI criteria, trend - Serial troponin: 81.8 -> 1411.2 -> 1643.2 -> 1494.9 -> 1656.0 -> 1517.4 -> 912.2 - Transthoracic echocardiogram = "1. severe global hypokinesis 2. mild tricuspid regurgitation 3. no thrombus 4. ejection fraction 31%." - Chest x-ray = "diffuse bilateral perihilar and interstitial hazy opacities, not significantly changed compared to prior exam, favoring pulmonary edema, though an infectious process could have a similar appearance." - Management plan: - Consult Cardiology - recommendations appreciated - S/P aspirin 324 mg PO x 1 in ED - Continue aspirin, atorvastatin, carvedilol, enoxaparin - Hold GRACE-inhibitor/ARB due to elevated creatinine # Possible Acute Kidney Injury on Chronic Kidney Disease Stage III - Nephrology consulted and spoke with Dr. Beatty - recommendations appreciated - He would like to see improvement in renal function prior to discharge - Creatinine = 2.47 -> 2.43 -> 2.61 -> 2.84 -> 2.92 - Urinalysis = 3+ blood, 21-50 RBCs, 1+ protein - Renal ultrasound = "unremarkable renal ultrasound." - IV diuretics as mentioned above - Monitor creatinine and urine output - Renally dose medications # Viral Sepsis secondary to Influenza A Infection - Initial Lactate was 2.0 - Blood cultures drawn - Broad spectrum antibiotics not started due to viral infection - Started oseltamivir - In regards to fluids: - 30 mL/kg of IV fluids was not administered given SBP > 90, MAP > 65, lactic acid < 4 # Hyperglycemia in Type II Diabetes Mellitus - Hemoglobin A1c = 6.4 % - Correction scale insulin Segundo Shultz M.D.
--- NOTE | 2022-07-21 19:41 | PN ---
Date of Progress Note: 07/20/2022 Subjective: Seen at bedside. Clinically doing well. No chest pain. Review of Systems: No chest pain, shortness of breath, orthopnea, or cough. No nausea, vomiting, or diarrhea. No abdom inal pain. No dysuria, polyuria, or urinary urgency. No skin rash or headache. All other systems r eviewed and they are negative. Physical Examination: Vital Signs: Reviewed. Head And Neck: Pupils are equal and reactive to light. Intact eye movements. No JVD. No cervical lymphadenopathy. Neck is supple. Thyroid is not enlarged. Lungs: Clear to auscultation bilaterally. No rhonchi, wheezing, or crackles. No accessory muscle u se. Heart: Regular rate and rhythm. No extra sounds. Abdomen: Soft, nontender. Bowel sounds positive. No organomegaly. No masses or hernia. No rigidi ty or rebound. Extremities: No edema, clubbing, or cyanosis. Intact pulses. Skin: No rashes. Neurologic: Alert, awake, and oriented x3. No acute focal deficits appreciated. Lymph Nodes: No cervical or axillary lymphadenopathy. Investigations: Troponin trended down. His troponin was coming down. The patient has no chest pain . Assessment And Recommendation: 1.Elevated troponin, likely due to demand ischemia, but patient is known to have coronary artery dis ease. He does not have any chest pain and his heart function on echo is low. The patient will need further ischemic evaluation with a stress test. He apparently is known to have low ejection fraction . 2.Pneumonia and influenza A, under control. 3.Advanced kidney failure. From Cardiology standpoint, I recommend a stress test and to do a coronary angiogram, only if stress test is abnormal. SR/MODL Voice ID: [id number] Report ID: [id number]
--- NOTE | 2022-07-21 19:53 | PN ---
Date of Progress Note: 07/21/2022 Subjective: Seen at bedside, doing well. No chest pain. Review of Systems: No chest pain. No shortness of breath, orthopnea, or cough. No nausea, vomiting, or diarrhea. No a bdominal pain. No dysuria, polyuria, or urinary urgency. All other systems reviewed and they are ne gative. Physical Examination: Vital Signs: Reviewed. Head And Neck: Pupils are equal and reactive to light. Intact eye movements. No JVD. No cervical lymphadenopathy. Neck is supple. Thyroid is not enlarged. Lungs: Clear to auscultation bilaterally. No rhonchi, wheezing, or crackles. No accessory muscle u se. Heart: Regular rate and rhythm. No extra sounds. Abdomen: Soft, nontender. Bowel sounds positive. No organomegaly. No masses or hernia. No rigidi ty or rebound. Extremities: No edema, clubbing, or cyanosis. Intact pulses. Skin: No rash. No nodules. Neuro: Alert, awake, and oriented x3. No acute focal deficits appreciated. Investigations: Labs reviewed. Assessment And Recommendations: 1.Elevated troponin. His troponin today is down to 912, suggestive of old demand ischemia and the p atient is asymptomatic. Recommendation will be a stress test and plan for further workup according t o the results. Avoid coronary angiogram due to the advanced kidney disease unless the stress test is grossly abnormal. In the interim, baby aspirin is recommended and also guideline directed medical t herapy for heart failure. See below. 2.Systolic heart failure. Ejection fraction is low. Recommend to try to titrate Coreg as we will n ot be able to use GRACE inhibitor due to advanced kidney failure. 3.Advanced kidney failure, being monitored by Nephrology. SR/MODL Voice ID: [id number] Report ID: [id number]
[2022-07-21] MEDS: BENZONATATE 100 MG CAP PO PRN (21:28)
[2022-07-21] MEDS: OSELTAMIVIR 30 MG CAP PO SCH (21:28)
[2022-07-21] MEDS: ATORVASTATIN 40 MG TAB PO SCH (21:28)
[2022-07-22] MEDS: carvediloL 3.125 MG TAB PO SCH (05:43)
[2022-07-22 06:47] LABS: Potassium 3.7 mmol/L (3.5-5.1)
[2022-07-22] MEDS: INSULIN -REGULAR HUMAN 50 UNIT/0.5 ML ML SQ SCH (07:30)
[2022-07-22 08:08] VITALS: BP 106/56; TEMP 97.9
--- NOTE | 2022-07-22 08:49 | P.DS ---
Admission Date: 07/18/22 Discharge Date: 07/22/22 Disposition: ROUTINE DISCHARGE Discharge Condition: GOOD Reason for Admission: CHF exacerbation, influenza Consultations: 1. Cardiology 2. Nephrology Hospital Course: DIAGNOSES: # Acute on Chronic Decompensated Systolic Congestive Heart Failure with Reduced Ejection Fraction (LVEF 31 %) # Non-ST Segment Elevation Myocardial Infarction # Possible Acute Kidney Injury on Chronic Kidney Disease Stage III # Viral Sepsis secondary to Influenza A Infection # Hyperglycemia in Type II Diabetes Mellitus HOSPITAL COURSE: Mr. Sylvain Veronica is a pleasant 71 year old male with a past medical history significant for chronic systolic congestive heart failure, chronic kidney disease stage III, and type 2 diabetes mellitus who was admitted to the [facility] on 07/18/2022 for shortness of breath. He was admitted to the Medicine service. Upon further evaluation, he was found to have an acute on chronic decompensated systolic congestive heart failure exacerbation and viral sepsis secondary to influenza A infection. His chest x- ray revealed, "diffuse bilateral perihilar and interstitial hazy opacities, not significantly changed compared to prior exam, favoring pulmonary edema, though an infectious process could have a similar appearance." His transthoracic echocardiogram revealed, "1. severe global hypokinesis 2. mild tricuspid regurgitation 3. no thrombus 4. ejection fraction 31%." Cardiology was consulted and he was evaluated by Drs. Mendoza and Mahsa. He was treated with IV fur osemide with significant improvement of his symptoms. He was also noted to have an NSTEMI, thought to be type II (demand ischemia) secondary to his infection and decompensated heart failure. Given that he is currently chest pain free, Dr. Bragg has cleared him for discharge with an outpatient cardiac stress test. In addition to his cardiac issues, his hospital course was complicated by an acute kidney injury. Nephrology and consulted and he was evaluated by Dr. Beatty. The exact etiology of his renal dysfunction is unclear, but per Dr. Beatty, he is comfortable with this being evaluated as an outpatient. Dr. Beatty has cleared him for discharge from a Nephrology standpoint with a close outpatient follow- up. With respect to his influenza A infection, he completed a course of oselamivir, with significant improvement in his symptoms. On 07/22/2022, he was seen on morning rounds and deemed medically stable for discharge. He was discharged with instructions to schedule follow-up appointme nts with his PCP, with Nephrology (Dr. Beatty), and with Cardiology (Dr. Bragg). He was provided a prescription for atorvastatin. He was given the opportunity to ask questions and reported no further questions. Furthermore, all questions were answered to the best of my ability. A copy of this discharge summary will be sent to the above providers to facilitate continuity of care. Today, I personally spent 35 minutes on his case, of which greater than 50% of the time was spent in patient education, counseling, and coordination of care as described above. - Physical Exam General: Alert, In no apparent distress, Oriented x3 HEENT: Atraumatic, EOMI, Sclerae nonicteric Neck: JVD not distended Respiratory: Clear to auscultation bilaterally Cardiovascular: Regular rate/rhythm, Normal S1 S2, No gallops, No rubs, No murmurs, Edema (trace-1+ BLE) Gastrointestinal: Normal bowel sounds, Soft and benign, Non-distended, No tenderness, No rebound, No guarding Musculoskeletal: No clubbing Integumentary: No rashes Neurological: Normal speech, Cranial nerves 3-12 intact, Normal affect Vital Signs/Physical Exam: Temp Pulse Resp BP Pulse Ox 97.9 F 71 19 106/56 L 99 07/22/22 08:00 07/22/22 08:00 07/22/22 08:00 07/22/22 08:00 07/22/22 08:00 Laboratory Data at Discharge: WBC 3.60 K/uL (4.3-10.9) L 07/20/22 05:39 Hgb 10.8 g/dL (13.6-17.9) L D 07/20/22 05:39 Hct 31.7 % (39.6-49.0) L 07/20/22 05:39 Plt Count 184 K/uL (152-406) 07/20/22 05:39 PT 12.8 SECONDS (9.5-12.5) H 07/17/22 22:03 INR 1.16 07/17/22 22:03 Sodium 136 mmol/L (136-145) 07/22/22 06:19 Potassium 3.7 mmol/L (3.5-5.1) D 07/22/22 06:19 BUN 60 mg/dL (7-18) H 07/22/22 06:19 Creatinine 2.71 mg/dL (0.55-1.3) H 07/22/22 06:19 Glucose 102 mg/dL (74-106) 07/22/22 06:19 Magnesium 2.5 mg/dL (1.8-2.4) H 07/21/22 05:19 Total Bilirubin 0.8 mg/dL (0.2-1.0) 07/19/22 03:37 AST 29 U/L (15-37) 07/19/22 03:37 ALT 32 U/L (12-78) 07/19/22 03:37 Alkaline Phosphatase 76 U/L (45-117) 07/19/22 03:37 Triglycerides 82 mg/dL (<150) 07/18/22 06:51 Cholesterol 142 mg/dL (<200) 07/18/22 06:51 HDL Cholesterol 50 mg/dL (40-60) 07/18/22 06:51 Cholesterol/HDL Ratio 2.84 07/18/22 06:51 Lipase 180 U/L (73-393) 07/17/22 22:03 Home Medications: ARIPiprazole [Aripiprazole] 10 mg PO BEDTIME 05/20/22 Furosemide [Lasix*] 40 mg PO DAILY #30 tab 05/20/22 carvediloL [Coreg*] 3.125 mg PO BID #60 tab 05/20/22 Atorvastatin Calcium [Lipitor] 40 mg PO BEDTIME #30 tab 07/22/22 New Medications: Atorvastatin Calcium [Lipitor] 40 mg PO BEDTIME #30 tab Physician Discharge Instructions: 1. Please call and schedule a follow-up appointment with your PCP in 3-5 days 2. Please call and schedule a follow-up appointment with Cardiology (Dr. Bragg) in 5-7 days 3. Please call and schedule a follow-up appointment with Nephrology (Dr. Beatty) in 3-5 days - Please schedule follow-up blood work to monitor your kidney function in 3-5 days - There was a small amount of blood in your urine, please have this further evaluated at your next clinic visit Diet: AHA Activity: Ad nikhil Followup: Alia Beatty [ACTIVE - CAN ADMIT] - NONE,NONE [Primary Care Provider] - Arie Bragg MD [ACTIVE - CAN ADMIT] - 1 Week (call for an apointment) Time spent managing pt's care (in minutes): 35
[2022-07-22] MEDS: ENOXAPARIN 80 MG/0.8 ML SQ SCH ×2 (09:00→09:01)
[2022-07-22] MEDS ORDERED: VITAMIN D 5,000 UNIT CAP PO SCH (09:00)
[2022-07-22] MEDS: ASPIRIN EC 81 MG TAB PO SCH (09:01)
[2022-07-22] MEDS: FUROSEMIDE 40 MG TABLET PO SCH (09:01)
[2022-07-22 10:13] VITALS: O2SAT 100
[2022-07-22 15:13] LABS: RPR (Rapid Plasma Reagin) NON-REACT (NON-REACT)
[2022-07-24 10:11] LABS: HBsAG Nonreactive (Nonreactive)
[2022-07-24 15:49] LABS: HIV AG/AB 4TH GEN Non-reactive (Non-reactive)
== END 2022-07-22 11:23 | disposition home or self-care (01) | DRG 871 ==
LOC: ER 21:33 → ERHOLD 07-18 04:14 → 4TH 07-18 10:13
PROVIDERS: ADMIT Internal Medicine; ATTEND Internal Medicine
PROC: 5A09457 Assistance with Respiratory Ventilation, 24-96 Consecutive Hours, Continuous Positive Airway Pressure (ICD-10-PCS; principal; 2022-07-18)
DX: A41.89 Other specified sepsis (principal); I21.A1 Myocardial infarction type 2; I50.23 Acute on chronic systolic (congestive) heart failure; N17.0 Acute kidney failure with tubular necrosis; J10.00 Influenza due to other identified influenza virus with unspecified type of pneumonia; I13.0 Hypertensive heart and chronic kidney disease with heart failure and stage 1 through stage 4 chronic kidney disease, or unspecified chronic kidney disease; N25.81 Secondary hyperparathyroidism of renal origin; R65.20 Severe sepsis without septic shock; N18.30 Chronic kidney disease, stage 3 unspecified; E11.22 Type 2 diabetes mellitus with diabetic chronic kidney disease; E11.65 Type 2 diabetes mellitus with hyperglycemia; E55.9 Vitamin D deficiency, unspecified; I07.1 Rheumatic tricuspid insufficiency; E87.6 Hypokalemia; I25.10 Atherosclerotic heart disease of native coronary artery without angina pectoris; Z95.5 Presence of coronary angioplasty implant and graft; Z79.4 Long term (current) use of insulin; Z91.14 Patient's other noncompliance with medication regimen; Z90.49 Acquired absence of other specified parts of digestive tract; Z79.899 Other long term (current) drug therapy; Z28.310 Unvaccinated for COVID-19; Z20.822 Contact with and (suspected) exposure to COVID-19
CPT/HCPCS: 0240U; 36415; 51702; 71045; 76770; 80048; 80053; 80061; 80076; 81001; 82306; 82550; 82570; 82947; 83036; 83605; 83690; 83735; 83880; 83935; 83970; 84132; 84156; 84300; 84484; 85025; 85610; 86021; 86038; 86160; 86430; 86592; 86593; 86704; 86706; 86803; 87040; 87340; 87389; 93005; 93306; 94660; 96365; 96368; 96375; 99285; J0456; J0696; J1815; J1940; J2270; J2405; J7050

== ENCOUNTER 2022-10-31 04:46 | Emergency (ER) | payer OTHER ==
--- OUTSIDE RECORDS SUMMARY | 2022-10-31 04:50 | XMS REPORT | Continuity of Care Document ---
:1950 Author Organization [facility] t Address [address] [facility] [address] [place] [address] Care Team Providers Name Role Phone TANESHA PEREZ Primary Care Physician Unavailable HANNAH WELLS Attending Clinician Unavailable Luba Donovan DO Attending Clinician LUBA DONOVAN Attending Clinician Unavailable LYSSA CHAPARRO Attending Clinician Unavailable LUBA DONOVAN Admitting Clinician Unavailable LYSSA CHAPARRO Admitting Clinician Unavailable Payers Payer Name Policy Type Policy Number Effective Date Expiration Date Jair encarnacion [facility] JOSE [facility] [id number] 2022 00:00:00 Problems Condition Condition Condition Status Onset Resolution Last Treating Co mments Source Name Details Category Date Date Treatment Clinician Date Phlegmon Phlegmon Disease [facility] No known No known Disease Unive rs active active ity of problems problems [facility] Allergies, Adverse Reactions, Alerts Allergy Allergy Status Severity Reaction(s) Onset Inactive Treating Comm ents Source Name Type Date Date Clinician NO KNOWN Drug Active Univers ALLERGIE Class ity of S [facility] Social History Social Habit Start Date Stop Date Quantity Comments Source Exposure to Not sure [facility] SARS-CoV-2 (event) Medica l Branch Sex Assigned At [address] [address] [facility] 00:[facility]:00 00:00:00 Center Smoking Status Start Date Stop Date Source Unknown if ever smoked [facility] Medications Ordered Filled Start Stop Current Ordering Indication Dosage Frequency Signature Comments Components Source Medication Medication Date Date Medication? Clinician (SIG) Name Name iohexol 2020- No [id number] 120mL 120 mL, U nivers (OMNIPAQUE 12-25 Intravenou it y of 350 15:30: 15:13 s, ONCE, 1 [place] BULK-100 00 :00 dose, Sat Medica l mL) 12/25/20 at [place] injection 1030, 120 mL Routine famotidine 2020- No 20mg 20 mg, Univ ers (PEPCID 12-25 Slow IV ity of (PF)) 14:30: 13:35 [place], [place] injection 00 :00 ONCE, 1 Medical 20 mg dose, Sat [place] 12/25/20 at 0930, Routine aspirin 2020- No 324mg 324 mg, Unive rs chewable 12-25 Oral, ity of tablet 324 14:30: 13:36 ONCE, 1 [place] as mg 00 :00 dose, Sat Medical 12/25/20 at Branch 0930, Routine metFORMIN 2019-0 Yes 1000mg Take 1,000 [facility] [...] 100 00:00: Units Medic al unit/mL 00 [facility] (70-30) usly 2 injection (two) times daily with breakfast and dinner Inject 60 units after breakfast Inject 30 units after dinner. HUMULIN 2017-08 Yes 30U Inject [facility] 70/30 U-100 2-18 30-60 [facility] INSULIN 100 00:00: Units Medic al unit/mL 00 [facility] (70-30) usly 2 injection (two) times daily with breakfast and dinner Inject 60 units after breakfast Inject 30 units after dinner. HUMULIN 2017-08 Yes 30U Inject [facility] 70/30 U-100 2-18 30-60 [facility] INSULIN 100 00:00: Units Medic al unit/mL 00 [facility] (70-30) usly 2 injection (two) times daily with breakfast and dinner Inject 60 units after breakfast Inject 30 units after dinner. HUMULIN 2017-08 Yes 30U Inject [facility] 70/30 U-100 2-18 30-60 [facility] INSULIN 100 00:00: Units Medic al unit/mL 00 [facility] (70-30) usly 2 injection (two) times daily with breakfast and dinner Inject 60 units after breakfast Inject 30 units after dinner. No known No Univers medications [facility] Vital Signs Vital Name Observation Time Observation Value Comments Source Systolic blood 2020-12-25 19:00:00 140 mm[Hg] Univer sity [facility] Diastolic blood 2020-12-25 19:00:00 80 mm[Hg] [facility] pressure [facility] Heart rate 2020-12-25 19:00:00 86 /min [facility] Respiratory rate 2020-12-25 19:00:00 19 /min [facility] Oxygen saturation in 2020-12-25 19:00:00 97 /min [facility] Arterial blood by [facility] Pulse oximetry [place] Body temperature 2020-12-25 13:14:[address] [facility] Body height 2020-12-25 13:14:00 177.8 cm [facility] Body weight 2020-12-25 13:14:00 86.183 kg [facility] BMI 2020-12-25 13:14:00 27.26 kg/m2 [facility] Procedures Procedure Date / Time Performed Performing Clinician Sour e TROPONIN I 2020-12-25 17:43:00 Luba Donovan [facility] CT ABDOMEN PELVIS W 2020-12-25 15:16:27 Luba Donovan [facility] CONTRAST [facility] XR CHEST 1 VW 2020-12-25 13:41:53 Luba Donovan [facility] LIPASE 2020-12-25 13:29:00 Luba Donovan [facility] TROPONIN I 2020-12-25 13:29:00 Luba Donovan [facility] HEPATIC FUNCTION 2020-12-25 13:29:00 Luba Donovan [facility] PANEL ([id number]) [facility] (ALB,T.PRO,BILI T,BU/BC,ALT,AST,ALK PHOS) BASIC METABOLIC PANEL 2020-12-25 13:29:00 Luba Donovan [facility] (NA, K, CL, CO2, Medical Branch GLUCOSE, BUN, CREATININE, CA) CBC WITH DIFF 2020-12-25 13:29:00 Luba Donovan [facility] COVID-19 (ID NOW 2020-12-25 13:29:00 Luba Donovan [facility] RAPID TESTING) [facility] HB ECG ROUTINE & 2020-12-25 13:27:27 Luba Donovan [facility] RHYTHM STRIP Medical Branch NOTICE OF PRIVACY 2020-12-25 13:07:34 [facility] CONSENT/REFUSAL FOR 2020-12-25 13:07:20 Doctor [facility]igned, [facility] AND Name Medical Branch TREATMENT [...] A1c [facility] Test 00:00:00 [facility] (procedure) [code = 82873093] Future Scheduled 2017 PNEUMOCOCCAL 65+ YRS [facility] Test 00:00:00 (1 of 1 - Medical Center [id number] PCV13) [code = PNEUMOCOCCAL 65+ YRS (1 of 1 - [id number]_Mzvmdzd PCV13)] Future Scheduled 2002 SHINGLES VACCINES (1 [...] [facility] Test 00:00:00 protein (procedure) [facility] [code = 847730716] Future Scheduled [address] [facility] Test 00:00:00 malignant neoplasm of [facility] colon (procedure) [code = 499388449] Encounters Start End Encounter Admission Attending Care Care Encounter Source Date/Time Date/Time Type Type Clinicians Facility Department ID 2022-10-04 Outpatient [facility] [id number] [place] 02:24:14 [id number] [facility] 2022-10-02 Outpatient [facility] [id number] [place] 13:00:36 [id number] [facility] 2022-10-02 2022-10-02 Outpatient [facility] [id number] [facility] 13:02:00 23:59:00 HANNAH 2020-12-25 2020-12-25 Emergency [facility] [id number] Univers 08:15:00 14:29:00 Luba Patel [id number] starr [facility] [id number] [facility] [id number] [place] [id number] Branch 2020-12-25 2020-12-25 Emergency [facility] [id number] Univers 08:15:00 14:29:00 LUBA clements [facility] Results Test Description Test Time Test Comments Results Result Comments Source Troponin I 2020-12-25 19:09:05 Test Item Value Reference Range Interpretation Comme nts TROPONIN I (test code = 0.030 ng/mL See_Comment [Au tomated message] The 5461892334) system which nerated this result tra nsmitted reference range [...] ? Lab Interpretation (test Normal code = 41877-1) [facility] P[facility] W [id number] 17:09:211. ?No acute intraabdominal pathology. 2. Minimal haziness of the upper abdominal mesenteric fat is nonspecific,but may be related to mild mesenteric panniculitis. 3. Hepatomegaly. There is a subcentimeter enhancing focus at the dome ofthe liver, possibly a flash filling hemangioma. This is incompletel ycharacterized on this examination. RL: 6214AF: [id number] End of Report EXAM: CT ABDOMEN PELVIS [...] images were obtained. CT performed according to ALApagosa springs medical centerciples.TECHNICAL QUALITY: AdequateCT OF THE ABDOMEN WITH IV [...] hemangioma. This is incompletelycharacterized on this examination.RL: 6214AF: 19217Nfdms Report [facility] 1 [id number] 14:50:12 No radiographic evidence of acute cardiopulmonary [...] report.[facility] [id number] 14:05:24 Test Item Value Reference Range Interpretation Comments TROPONIN I (test 0.033 ng/mL See_Comment [Automated code = 9964089736) message] The system which generated this result [...] ? Lab Interpretation Normal (test code = 51539-4) [facility] Metabolic Panel (NA, K, CL, CO2, GLUCOSE, BUN, CREATININE, CA)2020-12-25 13:54:05 Test Item Value Reference Range Interpretation Comments NA (test code = 136 mmol/L 135-145 9151239695) K (test code = 3.8 mmol/L 3.5-5.0 2612636528) CL (test code = 104 mmol/L 98-108 7665033863) CO2 TOTAL (test code = 20 mmol/L 23-31 L 7987798627) AGAP (test code = 2-16 4859636400) BUN (test code = 28 mg/dL 7-23 H 9205756662) GLUCOSE (test code = 371 mg/dL 70-110 H 2948819383) CREATININE (test code = 1.21 mg/dL 0.60-1.25 4520225729) CALCIUM (test code = 8.5 mg/dL 8.6-10.6 L 3900979213) eGFR (test code = mL/min/1.73m2 5779508245) MAXWELL (test code = MAXWELL) Association of [...] tests). Lab Interpretation Abnormal (test code = 44638-3) [facility] (ALB, T.PRO, BILI T, BU/BC, ALT, AST, ALK PHOS)2020-12-25 13:54:05 Test Item Value Reference Range Interpretation Comments TOTAL BILI (test code = 9209141734) 0.5 mg/dL 0.1-1.1 BILI UNCON (test code = 2897838987) 0.4 mg/dL 0.1-1.1 BILI CONJ (test code = 6161549003) 0.0 mg/dL 0.0-0.3 T PROTEIN (test code = 9658604512) 6.9 g/dL 6.3-8.2 ALBUMIN (test code = 8012916350) 4.2 g/dL 3.5-5.0 ALK PHOS (test code = 8577482199) 153 U/L 34-122 H ALTv (test code = 1742-6) 15 U/L 5-50 AST(SGOT) (test code = 8659569872) 19 U/L 13-40 Lab Interpretation (test code = Abnormal 78102-7) [facility]ney[facility] [id number] 13:54:05 Test Item Value Reference Range Interpretation Comments LIPASE (test code = 3740631569) 100 U/L 0-220 Lab Interpretation (test code = Normal 47508-6) [facility] (ID NOW RAPID TESTING)2020-12-25 13:52:05 Test Item Value Reference Range Interpretation Comments SARS-CoV-2 Rapid ID NOW Not Detected Not Detected (test code = 42043-1) MAXWELL (test code = MAXWELL) ID NOW COVID-19 Assay is an isothermal nucleic acid amplification test intended for the qualitative detection of nucleic acid from SARS-CoV-2 viral RNA in nasopharyngeal ([employer]ICATION SUPERVISOR) specimens. It is used under Emergency Use [...] indicated. Lab Interpretation Normal (test code = 18160-3) [facility] with [id number] 13:36:42 Test Item Value Reference Range Interpretation Comments WBC (test code = See_Comment [Automated 4469-2) message] The sy stem which generated this result transmitted reference range : 4.20 - 10.70 10*3/?L. The reference range was not used to interpret this result as normal/abnormal . RBC (test code = See_Comment [Automated 225-0) message] The sy stem which generated this [...] (test code = 37.2 fL 38.5-51.6 L 32563-2) RDW-CV (test code = 12.3 % 12.1-15.4 788-0) PLT (test code = See_Comment [Automated 777-3) message] The sy stem which generated this result transmitted reference range : 150 - 328 10*3/ ?L. The reference r marissa was not used to interpret this result as normal/abnormal . MPV (test code = 11.0 fL 9.8-13.0 81881-1) NRBC/100 WBC (test See_Comment [Automat ed code = 2794203930) message] The system which generated this result transmitted reference range : 0.0 - 10.0 /100 WBCs. The refer ence range was not u sed to interpret th is result as normal/abnormal . NRBC x10^3 (test code <0.01 See_Comment [Auto mated = 1509438627) message] The s ystem which generated this result transmitted reference range : 10*3/?L. The reference range was not used to interpret this result as normal/abnormal . GRAN MAT (NEUT) % 66.6 % (test code = 770-8) IMM GRAN % (test code 0.40 % = 7370586794) LYMPH % (test code = 24.9 % 736-9) MONO % (test code = 6.9 % 5905-5) EOS % (test code = 0.9 % 713-8) BASO % (test code = 0.3 % 706-2) GRAN MAT x10^3(ANC) 4.55 10*3/uL 1.99-6.95 (test code = 3949689357) IMM GRAN x10^3 (test 0.03 10*3/uL 0.00-0.06 code = 5475987135) LYMPH x10^3 (test code 1.70 10*3/uL 1.09-3.23 = 731-0) MONO x10^3 (test code 0.47 10*3/uL 0.36-1.02 = 742-7) EOS x10^3 (test code = 0.06 10*3/uL 0.06-0.53 711-2) BASO x10^3 (test code <0.03 0.01-0.09 = 704-7) Lab Interpretation Abnormal (test code = 82692-3) [facility]ARS-COV2/[facility]-PCR ([facility]) 2020-03-28 14:16:00 Test Item Value Reference Range Interpretation Comments SARS-COV2/RT-PCR (test code Positive Not Detected, Negative, AA = 2398180) See external report for linked test SARS-COV-[address] [facility] (test code = 3180476) Results are for the detection of SARS-CoV-2 [...] copies/mL.This SARS CoV-2 test is a rapid, lwfy-ebshYD-NBY test intended for the qualitative detection of [...] 564(g) of the Act.Fact Sheet for Healthcare Providers:https://www.SANDOW.CodeSealer/ Documents/Xpert%20Xpress%20SARS%20CoV-2/Fact%20Sheets/302-3802%76GZGF-ULU-2%20HE ALTHCARE%20PROVIDERS%20FACT%20SHEET.pdfFact Sheet for Healthcare Patients:https://www.SimilarWeb/Documents/Xpert%20Xpress %20SARS%20CoV-2/Fact%20Sheets/302-3801%36SFVP-DAS-9%20PATIENT%20FACT%20SHEET.pdf Performing Laboratory:[address] [address]AZSC-MTWPBDR [id number] 14:00:00 Test Item Value Reference Range Interpretation Comments POC-GLUCOSE METER 172 mg/dL 70-110 H TESTED AT [place] [address] ([facility]) (test code = [facility] 1538) [address] POCT-GLUCOSE [id number] 08:19:00 Test Item Value Reference Range Interpretation Comments POC-GLUCOSE METER 145 mg/dL 70-110 H TESTED AT [address]) (test code = [facility] 1538) [address] POCT-GLUCOSE [id number] 21:45:00 Test Item Value Reference Range Interpretation Comments POC-GLUCOSE METER 260 mg/dL 70-110 H TESTED AT [place] [address] ([facility]) (test code = [facility] 1538) [address] POCT-GLUCOSE [id number] 16:53:00 Test Item Value Reference Range Interpretation Comments POC-GLUCOSE METER 149 mg/dL 70-110 H TESTED AT [place] [address] ([facility]) (test code = [facility] 1538) [address] POCT-GLUCOSE [id number] 12:19:00 Test Item Value Reference Range Interpretation Comments POC-GLUCOSE METER 141 mg/dL 70-110 H TESTED AT [place] [address] ([facility]) (test code = [facility] 1538) [address] POCT-GLUCOSE [id number] 07:38:00 Test Item Value Reference Range Interpretation Comments POC-GLUCOSE METER 127 mg/dL 70-110 H TESTED AT [place] [address] ([facility]) (test code = [facility] 1538) [address] BASIC METABOLIC [id number] 04:59:00 Test Item Value Reference Range Interpretation [...] PATIEN TS. CBC W/PLT COUNT & AUTO [id number] 04:28:00 Test Item Value Reference Range Interpretation [...] PERCENT (BEAKER) (test code = 2801) POCT-GLUCOSE [id number] 22:48:00 Test Item Value Reference Range Interpretation Comments POC-GLUCOSE METER 133 mg/dL 70-110 H TESTED AT [place] [address] ([facility]) (test code = [facility]38) [address] POCT-GLUCOSE [id number] 18:05:00 Test Item Value Reference Range Interpretation Comments POC-GLUCOSE METER 167 mg/dL 70-110 H TESTED AT [place] [address] ([facility]) (test code = [facility] [employer] [facility] Mati [facility] 1538) [address] POCT-GLUCOSE [id number] 11:51:00 Test Item Value Reference Range Interpretation Comments POC-GLUCOSE METER 142 mg/dL 70-110 H TESTED AT [place] [address] ([facility]) (test code = [facility] [employer] [facility] Mati [facility] 1538) [address] POCT-GLUCOSE [id number] 07:48:00 Test Item Value Reference Range Interpretation Comments POC-GLUCOSE METER 138 mg/dL 70-110 H TESTED AT [place] [address] (BEAKER) (test code = [facility] [place] 1538) [address] BASIC METABOLIC [id number] 06:56:00 Test Item Value Reference Range Interpretation [...] APPLICABLE FOR DIALYSIS PATIEN TS. BASIC METABOLIC [id number] 06:50:00 Test Item Value Reference Range Interpretation [...] PATIEN TS. CBC W/PLT COUNT & AUTO [id number] 06:34:00 Test Item Value Reference Range Interpretation [...] = 2801) CBC W/PLT COUNT & AUTO [id number] 06:33:00 Test Item Value Reference Range Interpretation [...] ABSOLUTE COUNT 0.02 K/ L 0.04-0.54 L ([facility]) (test code = 416) BASOPHILS ABSOLUTE COUNT ([facility]) 0.02 K/ L 0.01-0.08 (test code = 417) IMMATURE GRANULOCYTES-RELATIVE 0 % 0-1 PERCENT ([facility]) (test code = 2801) POCT-GLUCOSE [id number] 21:02:00 Test Item Value Reference Range Interpretation Comments POC-GLUCOSE METER 232 mg/dL 70-110 H TESTED AT [place] [address] ([facility]) (test code = [facility] [place] 1538) [address] POCT-GLUCOSE [id number] 17:47:00 Test Item Value Reference Range Interpretation Comments POC-GLUCOSE METER 278 mg/dL 70-110 H TESTED AT [place] [address] ([facility]) (test code = [facility] [place] 1538) [address] POCT-GLUCOSE [id number] 13:08:00 Test Item Value Reference Range Interpretation Comments POC-GLUCOSE METER 307 mg/dL 70-110 H TESTED AT [place] [address] ([facility]) (test code = [facility] [place] 1538) [address] POCT-GLUCOSE [id number] 09:05:00 Test Item Value Reference Range Interpretation Comments POC-GLUCOSE METER 274 mg/dL 70-110 H TESTED AT [place] [address] ([facility]) (test code = [facility] [place] 1538) [address]"
[2022-10-31] MEDS ORDERED: ASPIRIN 81 MG CHEWABLE TABLET ONE (05:17)
[2022-10-31] MEDS ORDERED: ONDANSETRON 4 MG/2 ML VIAL ONE (05:18)
[2022-10-31] MEDS ORDERED: FUROSEMIDE 40 MG/4 ML VIAL ONE (05:18)
[2022-10-31] MEDS ORDERED: MORPHINE 4 MG/ML SYR ONE (05:18)
[2022-10-31 05:20] LABS: Absolute Lymphocytes (CBC) 1.1 K/uL (0.7-4.9); Hematocrit 30.4 % (39.6-49.0); MCV 82.3 fL (80-100); MPV 7.9 fL (7.6-11.3)
[2022-10-31 05:25] LABS: Protime INR 1.1
[2022-10-31 05:43] LABS: Albumin 3.6 g/dL (3.4-5.0); Bilirubin Direct 0.2 mg/dL (0-0.2); Bilirubin Total 0.7 mg/dL (0.2-1.0); Potassium 3.4 mmol/L (3.5-5.1); Protein, Total 7.2 g/dL (6.4-8.2)
[2022-10-31 05:56] LABS: Troponin High Sensitivity 86.6 pg/mL (<58.9)
[2022-10-31] MEDS ORDERED: NITROGLYCERIN 1 GM PKT TD ONE (06:11)
[2022-10-31 07:22] LABS: SARS-COV-2 RT PCR NEGATIVE (NEGATIVE)
[2022-10-31 11:10] VITALS: O2SAT 99
[2022-10-31 11:11] VITALS: BP 118/68; TEMP 97.9
--- NOTE | 2022-10-31 13:52 | RAD REPORT ---
EXAM DESCRIPTION: RAD - Chest Single View - 10/31/2022 5:25 am CLINICAL HISTORY: COUGH COMPARISON: Portable chest, 07/17/2022 FINDINGS: The cardiac silhouette appears enlarged. Perihilar vascular congestion appears slightly wo rse than on the previous exam. Bilateral pulmonary infiltrates again seen, also slightly worse at the lung bases compared to the previous study. Small subpulmonic right-sided pleural effusion has develo ped. No left-sided pleural effusion or pneumothorax on either side. IMPRESSION: Moderate pulmonary edema pattern as described above. This appears slightly worse than on the previous exam. Continued radiographic follow-up is recommended. Electronically signed by: Spenser Montgomery MD 10/31/2022 6:32 AM CLIENT SERVICE ADMINISTRATOR Due to temporary technical issues with the PACS/Fluency reporting system, reports are being signed by the in house radiologists without review as a courtesy to insure prompt reporting. The interpreting radiologist is fully responsible for the content of the report.
--- NOTE | 2022-10-31 17:32 | EKG ---
Test Date: 2022-10-31 Test Time: 04:59:32 District Manager: KENRICK MEASUREMENT RESULTS: Intervals: Rate: 121 HI: 162 QRSD: 88 QT: 326 QTc: 462 [place]: P: 48 HI: 162 QRS: 23 T: 74 INTERPRETIVE STATEMENTS: Sinus tachycardia with frequent premature ventricular complexes Possible Anterior infarct, age undetermined Abnormal ECG Compared to ECG 07/17/2022 22:33:02 Ventricular premature complex(es) now present Myocardial infarct finding now present ST (T wave) deviation no longer present Electronically Signed On 10-31-22 17:30:56 THREADER OPERATOR by Arie Bragg
--- NOTE | 2022-11-17 14:22 | ER ---
Nurse's Notes [facility] Name: Sylvain Veronica Age: 72 yrs Sex: Male : 1950 Arrival Date: 10/31/2022 Time: 04:48 Bed 7 Private MD: Diagnosis: Acute diastolic (congestive) heart failure;Acute pulmonary edema;Acute on chronic renal insufficiency, PVCs, non-ST elevated CT, flash pulmonary edema Presentation: 10/31 05:00 Chief complaint: Patient states: SOB with cough,onset 0200 this AM. Patient denies any pf1 chest pain. Patient stated used albuterol inhaler [employer]. 05:00 Coronavirus screen: Vaccine status: Patient reports receiving the 2nd dose of the covid pf1 vaccine. Moderna Client denies travel out of the [place] in the last 14 days. Client presents with at least one sign or symptom that may indicate coronavirus-19. Standard/surgical mask placed on the client. Ebola Screen: Patient negative for fever greater than or equal to 101.5 degrees Fahrenheit, and additional compatible Ebola Virus Disease symptoms. Initial Sepsis Screen: Does the patient meet any 2 criteria? No. Patient's initial sepsis screen is negative. Does the patient have a suspected source of infection? No. Patient's initial sepsis screen is negative. Risk Assessment: Do you want to hurt yourself or someone else? Patient reports no desire to harm self or others. Onset of symptoms was October 31, 2022. 05:00 Method Of Arrival: Wheelchair pf1 05:00 Acuity: JACKIE 2 pf1 Historical: - Allergies: 05:31 No Known Allergies; pf1 - Home Meds: 05:31 insulin [Active]; pf1 - PMHx: 05:31 Congestive heart failure; Systolic; Diabetes - IDDM; Hypertensive disorder; kidney pf1 disease; CKD 3; - PSHx: 05:31 Cholecystectomy; cardiac stents; pf1 - Immunization history:: Adult Immunizations not up to date, Last tetanus immunization: > 10 years ago Flu vaccine is not up to date. - Social history:: Smoking status: Patient/guardian denies using tobacco, the patient reports quitting approximately 30 years ago, Patient uses alcohol, occasionally. Patient/guardian denies using street drugs. - Family history:: not pertinent. Screenin:10 [facility] ED Fall Risk Assessment (Adult) History of falling in the last 3 months, pf1 including since admission No falls in past 3 months (0 pts) Confusion or Disorientation No (0 pts) Intoxicated or Sedated No (0 pts) Impaired Gait No (0 pts) Mobility Assist Device Used No (0 pt) Altered Elimination No (0 pt) Score/Fall Risk Level 0 - 2 = Low Risk Oriented to surroundings, Maintained a safe environment, Educated pt \T\ family on fall prevention, incl call for assistance when getting out of bed, Assessed \T\ reinforced patient's understanding of fall precautions, Provided non-skid footwear, Hourly rounding (assess needs \T\ fall precautionary measures) done, Used ambulatory aids as needed (educated on \T\ assisted with), Used gait belt as appropriate. Abuse screen: Denies threats or abuse. Nutritional screening: No deficits noted. Tuberculosis screening: No symptoms or risk factors identified. Assessment: 05:35 General: Appears in no apparent distress. uncomfortable, well groomed, well developed, pf1 Behavior is cooperative, appropriate for age, anxious. 05:35 Pain: Denies pain. Neuro: No deficits noted. Level of Consciousness is awake, alert, pf1 obeys commands, Oriented to person, place, time, situation. Cardiovascular: No deficits noted. Capillary refill < 3 seconds Patient's skin is warm and dry. Respiratory: Reports shortness of breath at rest on exertion cough that is Airway is patent Trachea midline Respiratory effort is labored, Respiratory pattern is regular, symmetrical, Breath sounds are coarse bilaterally. Breath sounds with crackles. GI: No deficits noted. No signs and/or symptoms were reported involving the gastrointestinal system. : No deficits noted. No signs and/or symptoms were reported regarding the genitourinary system. EENT: No deficits noted. No signs and/or symptoms were reported regarding the EENT system. Derm: No deficits noted. No signs and/or symptoms reported regarding the dermatologic system. Musculoskeletal: No deficits noted. No signs and/or symptoms reported regarding the musculoskeletal system. Circulation, motion, and sensation intact. Capillary refill < 3 seconds, Range of motion: intact in all extremities, Swelling present in right leg and left leg. 06:23 Reassessment: Patient appears in no apparent distress at this time. No changes from pf1 previously documented assessment. Patient and/or family updated on plan of care and expected duration. Pain level reassessed. Patient states feeling better. Patient states symptoms have improved. 07:00 Reassessment: Patient appears in no apparent distress at this time. No changes from pf1 previously documented assessment. Patient is alert, oriented x 3, equal unlabored respirations, skin warm/dry/pink. Patient states feeling better. Patient states symptoms have improved. 09:39 Reassessment: Patient appears in no apparent distress at this time. Patient and/or ph family updated on plan of care and expected duration. Pain level reassessed. Patient is alert, oriented x 3, equal unlabored respirations, skin warm/dry/pink. Attempted to call report to [facility], receiving nurse asked me to call back in 5 minutes. 09:41 Cardiovascular: Rhythm is sinus rhythm. ph 10:06 Reassessment: Patient appears in no apparent distress at this time. Patient and/or ph family updated on plan of care and expected duration. Pain level reassessed. Patient is alert, oriented x 3, equal unlabored respirations, skin warm/dry/pink. report called to CHUCK Mckeon at [facility], transfer form signed by pt, awaiting EMS for transport. 10:42 Reassessment: Patient appears in no apparent distress at this time. Patient and/or ph family updated on plan of care and expected duration. Pain level reassessed. Patient is alert, oriented x 3, equal unlabored respirations, skin warm/dry/pink. [facility] at bedside, report given to Yoav GONZALEZ, pt transferred to [facility]. Vital Signs: 05:00 BP 170 / 108; Pulse 108; Resp 21; Temp 98(O); Pulse Ox 93% on R/A; Weight 83.91 kg; pf1 Height 5 ft. 10 in. ; Pain 0/10; 05:45 BP 148 / 77; Pulse 96; Resp 16; Pulse Ox 99% on 2 lpm NC; Pain 0/10; pf1 06:15 BP 150 / 87; Pulse 90; Resp 22; Pulse Ox 100% on 2 lpm NC; Pain 0/10; pf1 07:00 BP 123 / 69; Pulse 79; Resp 21; Pulse Ox 96% on 2 lpm NC; Pain 0/10; pf1 09:23 BP 119 / 69; Pulse 72; Resp 18; Temp 97.8; Pulse Ox 99% on 2 lpm NC; ph 10:43 BP 118 / 68; Pulse 74; Resp 18; Temp 97.9; Pulse Ox 99% on 2 lpm NC; ph 05:00 Body Mass Index 26.54 (83.91 kg, 177.8 cm) pf1 05:00 Pain Scale: Adult pf1 05:45 Pain Scale: Adult pf1 06:15 Pain Scale: Adult pf1 07:00 Pain Scale: Adult pf1 Vitals: 09:23 Cardiac Rhythm Assessment Sinus rhythm. ph ED Course: 04:48 Patient arrived in ED. ja2 04:52 Beatrice alvarez, CHUCK is Primary Nurse. pf1 05:02 Dashawn Rojas MD is Attending Physician. sp4 05:09 Triage completed. pf1 05:09 No provider procedures requiring assistance completed. Inserted saline lock: 20 gauge pf1 in right wrist, using aseptic technique. Blood collected. 05:10 Patient has correct armband on for positive identification. Bed in low position. Call pf1 light in reach. 05:56 Notified ED physician of a critical lab result(s). troponin of 86.6 Dr Abraham. notified. bb 09:40 Arm band placed on Patient placed in an exam room. ph Administered Medications: 05:19 Drug: Furosemide IVP 40 mg Route: IVP; Site: right wrist; pf1 06:15 Follow up: Response: No adverse reaction; Marked relief of symptoms pf1 05:20 Drug: morphine IVP or IV 4 mg Route: IVP; Infused Over: 4 mins; Site: right wrist; pf1 06:20 Follow up: Response: No adverse reaction; Marked relief of symptoms; Pain is decreased; pf1 RASS: Alert and Calm (0) 05:20 Drug: Aspirin PO Chewable Tablet 324 mg Route: PO; pf1 06:20 Follow up: Response: No adverse reaction; Marked relief of symptoms pf1 05:20 Drug: Ondansetron IVP 4 mg Route: IVP; Site: right wrist; pf1 06:15 Follow up: Response: No adverse reaction; Marked relief of symptoms pf1 06:21 Drug: Nitroglycerin Transdermal Ointment 2 % 1 inches Route: Transdermal; Site: pf1 anterior chest wall; 07:08 Follow up: Response: No adverse reaction; Marked relief of symptoms pf1 Medication: 09:40 VIS not applicable for this client. ph Output: 06:23 Urine: 600ml (Voided); Total: 600ml. pf1 Outcome: 06:38 ER care complete, transfer ordered by . sp4 10:43 Patient left the ED. ph Signatures: Jessica Talbert, Miriam Clay RN, RN RN ph Alexander, Jessica ja2 finley, Pamala, RN RN pf1 Dashawn Rojas MD MD sp4
--- NOTE | 2022-11-17 14:22 | EDPHYS ---
Physician Documentation [facility] Name: Sylvain Veronica Age: 72 yrs Sex: Male : 1950 Arrival Date: 10/31/2022 Time: 04:48 Bed 7 Private MD: ED Physician Dashawn Rojas HPI: 10/31 05:02 This 72 yrs old Male presents to ER via Unassigned with complaints of sp4 Shortness Of Breath. 05:54 72-year-old male with past medical history of congestive heart failure, sp4 insulin-dependent diabetes, hypertension presents with acute dyspnea worsening in the last 24 hours associated with bilateral lower extremity edema. 05:55 Patient reported associated nonproductive cough. sp4 06:27 Patient's most recent admission on 07/18/2022 for acute on chronic decompensated sp4 congestive heart failure with ejection fraction of 31%, non-ST elevated CA, acute kidney injury secondary to chronic kidney injury stage III, viral sepsis secondary to influenza A, hyperglycemia and type 2 diabetes. Historical: - Allergies: 05:31 No Known Allergies; pf1 - Home Meds: 05:31 insulin [Active]; pf1 - PMHx: 05:31 Congestive heart failure; Systolic; Diabetes - IDDM; Hypertensive disorder; kidney pf1 disease; CKD 3; - PSHx: 05:31 Cholecystectomy; cardiac stents; pf1 - Immunization history:: Adult Immunizations not up to date, Last tetanus immunization: > 10 years ago Flu vaccine is not up to date. - Social history:: Smoking status: Patient/guardian denies using tobacco, the patient reports quitting approximately 30 years ago, Patient uses alcohol, occasionally. Patient/guardian denies using street drugs. - Family history:: not pertinent. ROS: 06:27 Constitutional: Negative for fever, chills, and weight loss, generalized weakness Eyes: sp4 Negative for injury, pain, redness, and discharge, ENT: Negative for injury, pain, and discharge, Neck: Negative for injury, pain, and swelling, Cardiovascular: Negative for chest pain, palpitations, positive for bilateral lower extremity edema and also positive for rapid heart rate Respiratory: Positive for for shortness of breath, cough, wheezing, negative for pleuritic chest pain Abdomen/GI: Negative for abdominal pain, nausea, vomiting, diarrhea, and constipation, Back: Negative for injury and pain, : Negative for injury, bleeding, discharge, and swelling, MS/Extremity: Negative for injury and deformity, positive for bilateral lower leg edema Skin: Negative for injury, rash, and discoloration, Neuro: Negative for headache, weakness, numbness, tingling, and seizure, Psych: Negative for depression, anxiety, suicide ideation, homicidal ideation, and hallucinations, Allergy/Immunology: Negative for hives, rash, and allergies, Endocrine: Negative for neck swelling, polydipsia, polyuria, polyphagia, and marked weight changes, Hematologic/Lymphatic: Negative for swollen nodes, abnormal bleeding, and unusual bruising. Exam: 06:27 Constitutional: This is a well developed, well nourished patient who is awake, alert, sp4 patient is in mild to moderate distress, has signs of congestive heart failure, bilateral leg edema, mild to moderate respiratory distress, and tachycardia Head/Face: Normocephalic, atraumatic. Eyes: Pupils equal round and reactive to light, extra-ocular motions intact. Lids and lashes normal. Conjunctiva and sclera are non-icteric and not injected. Cornea within normal limits. Periorbital areas with no swelling, redness, or edema. ENT: Nares patent. No nasal discharge, no septal abnormalities noted. Tympanic membranes are normal and external auditory canals are clear. Oropharynx with no redness, swelling, or masses, exudates, or evidence of obstruction, uvula midline. Mucous membranes moist. Neck: Trachea midline, no thyromegaly or masses palpated, and no cervical lymphadenopathy. Supple, full range of motion without nuchal rigidity, or vertebral point tenderness. No Meningismus. There is jugular venous distention Chest/axilla: Normal chest wall appearance and motion. Nontender with no deformity. No lesions are appreciated. Cardiovascular: Irregular rate, normal S1 and S2. No gallops, murmurs, or rubs. Normal PMI, there is jugular venous distention, tachycardia, irregular tachycardia, no pulse deficits. Respiratory: Lungs have equal breath sounds bilaterally, there is increased work of breathing, bilateral decreased lung sounds at the bases, bilateral wheezing diffusely, no retractions or nasal flaring. Abdomen/GI: Soft, non-tender, with normal bowel sounds. No distension or tympany. No guarding or rebound. No evidence of tenderness throughout. Back: No spinal tenderness. No costovertebral tenderness. Full range of motion. Skin: Warm, dry with normal turgor. Normal color with no rashes, no lesions, and no evidence of cellulitis. MS/ Extremity: Pulses equal, no cyanosis. Neurovascular intact. Full, normal range of motion. Bilateral lower extremity pitting edema Neuro: Awake and alert, GCS 15, oriented to person, place, time, and situation. Cranial nerves II-XII grossly intact. Motor strength 5/5 in all extremities. Sensory grossly intact. Cerebellar exam normal. Normal gait. Psych: Awake, alert, with orientation to person, place and time. Behavior, mood, and affect are within normal limits. 06:27 ECG was reviewed by the Attending Physician. There is EKG done at 0 4:59 AM, there is sp4 sinus tachycardia at the rate of 121, frequent PVCs that are unifocal, no ST elevation or depression, normal intervals Vital Signs: 05:00 BP 170 / 108; Pulse 108; Resp 21; Temp 98(O); Pulse Ox 93% on R/A; Weight 83.91 kg; pf1 Height 5 ft. 10 in. ; Pain 0/10; 05:45 BP 148 / 77; Pulse 96; Resp 16; Pulse Ox 99% on 2 lpm NC; Pain 0/10; pf1 06:15 BP 150 / 87; Pulse 90; Resp 22; Pulse Ox 100% on 2 lpm NC; Pain 0/10; pf1 07:00 BP 123 / 69; Pulse 79; Resp 21; Pulse Ox 96% on 2 lpm NC; Pain 0/10; pf1 09:23 BP 119 / 69; Pulse 72; Resp 18; Temp 97.8; Pulse Ox 99% on 2 lpm NC; ph 10:43 BP 118 / 68; Pulse 74; Resp 18; Temp 97.9; Pulse Ox 99% on 2 lpm NC; ph 05:00 Body Mass Index 26.54 (83.91 kg, 177.8 cm) pf1 05:00 Pain Scale: Adult pf1 05:45 Pain Scale: Adult pf1 06:15 Pain Scale: Adult pf1 07:00 Pain Scale: Adult pf1 MDM: 05:17 Patient medically screened. sp4 06:35 Differential diagnosis: Anxiety Reaction asthma, Bronchitis CHF exacerbation, Chronic sp4 Obstructive Pulmonary Disease pneumonia, Psychogenic pulmonary edema, reactive airway disease, Unstable Angina. Antibiotic administration: Not indicated. Data reviewed: vital signs, nurses notes, old medical records, lab test result(s), EKG, radiologic studies, plain films. Transition of care:. ED course: 72-year-old male with past medical history of chronic congestive heart failure, chronic kidney disease stage III, type 2 diabetes, coronary artery disease presents with acute shortness of breath and signs of diastolic heart failure, patient has pulmonary edema on his chest x-ray, also elevated troponin highly elevated BNP, patient is improved after medications in the ER, he warrants transfer for higher level of care. 07:07 ED course: Patient care was transferred to daytime provider Dr. Ricks for further care sp4 and transfer, patient warrants transfer for higher level of care and also there is lack of capacity here at this time . 10/31 05:03 Order name: Basic Metabolic Panel sp4 10/31 05:03 Order name: CBC with Diff sp4 10/31 05:03 Order name: LFT's sp4 10/31 05:03 Order name: NT PRO-BNP sp4 10/31 05:03 Order name: PT-INR sp4 10/31 05:03 Order name: Troponin HS sp4 10/31 05:03 Order name: Lipase sp4 10/31 05:21 Order name: CBC with Automated Diff; Complete Time: 05:54 EDMS 10/31 05:25 Order name: Protime (+INR); Complete Time: 05:54 EDMS 10/31 05:56 Order name: Basic Metabolic Panel; Complete Time: 06:27 EDMS 10/31 05:56 Order name: Liver (Hepatic) Function; Complete Time: 06:27 EDMS 10/31 05:56 Order name: Troponin High Sensitivity; Complete Time: 06:27 EDMS 10/31 05:56 Order name: NT PRO-BNP; Complete Time: 06:27 EDMS 10/31 05:56 Order name: Lipase; Complete Time: 06:27 EDMS 10/31 06:02 Order name: COVID-19/FLU A+B sp4 10/31 07:22 Order name: COVID-19/FLU A+B EDMS 10/31 05:03 Order name: XRAY Chest (1 view) sp4 10/31 05:03 Order name: EKG; Complete Time: 05:04 sp4 10/31 05:03 Order name: Cardiac monitoring; Complete Time: 05:10 sp4 10/31 05:03 Order name: EKG - Nurse/Tech; Complete Time: 05:10 sp4 10/31 05:03 Order name: IV Saline Lock; Complete Time: 05:10 sp4 10/31 05:03 Order name: Labs collected and sent; Complete Time: 05:15 sp4 10/31 05:03 Order name: O2 Per Protocol; Complete Time: 05:10 sp4 10/31 05:03 Order name: O2 Sat Monitoring; Complete Time: 05:10 sp4 EC:27 Rate is 121 beats/min. Rhythm is irregular, Sinus tachycardia with Multifocal PVCs. IL sp4 interval is normal. QRS interval is normal. QT interval is normal. No ST changes noted. Clinical impression: Sinus tachycardia. Interpreted by me. Administered Medications: 05:19 Drug: Furosemide IVP 40 mg Route: IVP; Site: right wrist; pf1 06:15 Follow up: Response: No adverse reaction; Marked relief of symptoms pf1 05:20 Drug: morphine IVP or IV 4 mg Route: IVP; Infused Over: 4 mins; Site: right wrist; pf1 06:20 Follow up: Response: No adverse reaction; Marked relief of symptoms; Pain is decreased; pf1 RASS: Alert and Calm (0) 05:20 Drug: Aspirin PO Chewable Tablet 324 mg Route: PO; pf1 06:20 Follow up: Response: No adverse reaction; Marked relief of symptoms pf1 05:20 Drug: Ondansetron IVP 4 mg Route: IVP; Site: right wrist; pf1 06:15 Follow up: Response: No adverse reaction; Marked relief of symptoms pf1 06:21 Drug: Nitroglycerin Transdermal Ointment 2 % 1 inches Route: Transdermal; Site: pf1 anterior chest wall; 07:08 Follow up: Response: No adverse reaction; Marked relief of symptoms pf1 Disposition Summary: 10/31/22 06:38 Transfer Ordered Reason: Higher level of care sp4 Condition: Serious sp4 Problem: an acute exacerbation sp4 Symptoms: have improved sp4 Transfer Location: Other Acute Care Facility(10/31/22 07:18) sp4 Accepting Physician: At this time patient is awaiting on acceptance, (10/31/22 10:43) ph Diagnosis - Acute diastolic (congestive) heart failure sp4 - Acute pulmonary edema sp4 - Acute on chronic renal insufficiency, PVCs, non-ST elevated CA, flash pulmonary sp4 edema Discharge Instructions: - Discharge Summary Sheet pf1 Forms: - SBAR form pf1 - Medication Reconciliation Form sp4 Signatures: Dispatcher [employer] Miriam Donato RN RN ph Beatrice alvarez RN RN pf1 Dashawn Rojas MD MD sp4 Corrections: (The following items were deleted from the chart) 07:18 06:38 At this time patient is awaiting on acceptance sp4 sp4 07:18 06:38 [facility] sp4 sp4 10:43 07:18 At this time patient is awaiting on acceptance, sp4 ph
== END 2022-10-31 10:43 ==
LOC: ER 04:46
DX: I50.31 Acute diastolic (congestive) heart failure (principal); J81.0 Acute pulmonary edema; I12.9 Hypertensive chronic kidney disease with stage 1 through stage 4 chronic kidney disease, or unspecified chronic kidney disease; N18.30 Chronic kidney disease, stage 3 unspecified; N17.9 Acute kidney failure, unspecified; I49.3 Ventricular premature depolarization; I21.4 Non-ST elevation (NSTEMI) myocardial infarction; E11.9 Type 2 diabetes mellitus without complications; Z79.4 Long term (current) use of insulin; Z95.818 Presence of other cardiac implants and grafts; Z20.822 Contact with and (suspected) exposure to COVID-19
CPT/HCPCS: 93005; 85025; 80048; 36415; 85610; 80076; 84484; 83690; 83880; 0240U; 71045; 96375; 96374; 99284; J1940; J2405

== ENCOUNTER 2023-06-21 18:55 | Observation (INO) | payer OTHER ==
--- OUTSIDE RECORDS SUMMARY | 2023-06-21 18:59 | XMS REPORT | Continuity of Care Document ---
:[address] [facility] t Address [address] [place] [address] [place] [id number] Care Team Providers Name Role Phone CLEOPATRA SIMMONS Primary Care Physician Unavailable JIMBO MURCIA Attending Clinician Unavailable Jimbo Murcia Attending Clinician Ebenezer Patino MD Attending Clinician Amish Becker MD Attending Clinician AMISH BECKER Attending Clinician Unavailable Luba Donovan DO Attending Clinician LUBA DONOVAN Attending Clinician Unavailable LYSSA CHAPARRO Attending Clinician Unavailable EBENEZER PATINO Admitting Clinician Unavailable LUBA DONOVAN Admitting Clinician Unavailable LYSSA CHAPARRO Admitting Clinician Unavailable Payers Payer Name Policy Type Policy Number Effective Date Expiration Date Jair encarnacion [facility] JOLIE [id number] 2022 00:00:00 Problems Condition Condition Condition Status Onset Resolution Last Treating Co mments Source Name Details Category Date Date Treatment Clinician Date Acute on Acute on Disease Recurre [facility]07 [facility] systolic systolic 00:00: Medica l heart heart 00 Center failure failure 1WK F/U; 1WK F/U; Diagnosis Active 2022-11-[address] [facility] CHF; CHF; 2-10 14:49:00 l STARTED STARTED 00:00: Ferm[place] NEW MEDS NEW MEDS 00 Active 10/06/2022 [facility] Phlegmon Phlegmon Disease Active [facility] 00:[facility]: Medical 00 Center No known No known Disease Unive rs active active ity of problems problems [facility] I50.9 - I50.9 - Diagnosis [facility] 09:28:00 l FAILURE, FAILURE, Sagar n UNSPECIFIE UNSPECIFIE D E11.9 D E11.9 Active [facility] Allergies, Adverse Reactions, Alerts Allergy Allergy Status Severity Reaction(s) Onset Inactive Treating Comm ents Source Name Type Date Date Clinician NO KNOWN Drug Active Univers ALLERGIE Class ity of S [facility] No Known No Known Active Memori a Medicati Medicati l on on [place] Allergie Allergie s s NO KNOWN Allergy Active [facility] ALLERGIE S Family History Family Member Diagnosis Comments Start Date Stop Date Source Natural father Diabetes [facility] Social History Social Habit Start Date Stop Date Quantity Comments Source Exposure to Not sure [facility]-CoV-2 [place] [facility] (event[facility] History of Current smoker [facility] tobacco use [facility] History [facility] Tobacco use and 2022-10-31 2022-10-31 Smokeless [address] [facility] exposure 00:[facility]00 00:00:00 non-user Medical Center History [facility] 2022-10-31 2022-10-[address] [facility] Housing Unable to 00:00:00 00:00:00 Medical Center Pay History [facility] 2022-10-31 2022-10-[address] [facility] Housing Places 00:00:00 00:00:00 Medical Ce nter Lived History [facility] 2022-10-31 2022-10-[address] [facility] Housing Homeless 00:00:00 00:00:00 Medical Center Last Year Tobacco Comment 2022-10-31 2022-10-31 [facility] Alcohol Comment 2022-10-31 2022-10-31 stopped [facility]00 [facility] Alcohol intake 2022-10-31 2022-10-31 Ex-drinker [facility] 00:00:00 00:00:00 (finding) Medical Center History SDOH 2022-10-31 2022-10-[address] [facility] Transport Med 00:00:00 00:00:[address] Sex Assigned At [address] [facility] 00:00:00 00:00:00 Medical Center Smoking Status Start Date Stop Date Source Ex-smoker 2022-10-31 00:00:00 2022-10-31 00:00:00 [facility] Tobacco smoking status [facility] Unknown if ever smoked [facility] Medications Ordered Filled Start Stop Current Ordering Indication Dosage Frequency Signature Comments Components Source Medication Medication Date Date Medication? Clinician (SIG) Name Name aspirin 81 2022- No 81mg QD Take [address] [facility] EC 3-10 -08 tablet (81 [facility] tablet 00:00: 23:59 mg total) Medic al 00 :00 by mouth Center daily for 90 days. aspirin 81 2022- No 81mg QD Take [address] MG EC 3-10 -08 tablet (81 [facility] tablet 00:00: 23:59 mg total) Medic al 00 :00 by mouth Center daily for 90 days. aspirin 81 2022- No 81mg QD Take [address] MG EC 3-10 -09 tablet (81 [facility] tablet 00:00: 00:00 mg total) Medic al 00 :00 by mouth Center daily for 30 days. aspirin 81 2022-2022- No 81mg QD Take [address] MG EC 3-10 -09 tablet (81 [facility] tablet 00:00: 00:00 mg total) Medic al 00 :00 by mouth Center daily for 30 days. metFORMIN 2022- No 1000mg Take 1,[address] [facility] (GLUCOPHAGE -04 29- mg by [facility]ukes ) 1000 MG 14:08: 00:00 mouth 2 Medi manisha tablet 17 :00 (two) Center times daily with breakfast and lunch. pantoprazol 2022- No 40mg QD Take [address] e 11-02 by mouth [facility]ukes (PROTONIX) 14:08: 00:00 daily. Medi manisha 40 MG 17 :00 Center tablet valsartan 2022- No 80mg QD Take [address] (DIOVAN) 80 11-0209 by mouth Mariano es MG tablet 14:08: 00:00 daily. Medic al 17 :00 Center metFORMIN 2022-2022- No 1000mg Take 1,[address] (GLUCOPHAGE 11-02 mg by [facility]ukes ) 1000 MG 14:08: 00:00 mouth 2 Medi manisha tablet 17 :00 (two) Center times daily with breakfast and lunch. pantoprazol 2022- No 40mg QD Take [address] e 11-02 by mouth [facility]ukes (PROTONIX) 14:08: 00:00 daily. Medi manisha 40 MG 17 :00 Center tablet valsartan 2022- No 80mg QD Take [address] (DIOVAN) 80 11-02 by mouth Mariano es MG tablet 14:08: 00:00 daily. Medic al 17 :00 Center atorvastati 2022- No 40mg QD Take [address] n (LIPITOR) 11-02 tablet (40 L ukes 40 MG 00:00: 23:59 mg total) Medica l tablet 00 :00 by mouth Center nightly for 90 days. metoprolol 2022- No 25mg Q.5D Take [address] tartrate 11-02 tablet (25 Luke s (LOPRESSOR) 00:00: 23:59 mg total) Medical 25 MG 00 :00 by mouth 2 Center tablet (two) times daily for 90 days. sacubitriL- 2022- No 1{tbl} Q.5D Take [address] valsartan 11-0207 tablet by Luke s (ENTRESTO) 00:00: 23:59 mouth 2 Med ical 24-26 mg 00 :00 (two) Center tablet times daily for 90 days. furosemide 2022- No 40mg QD Take [address] (LASIX) 40 11-02- tablet (40 Rakel kes MG tablet 00:00: 23:59 mg total) Me dical 00 :00 by mouth Center daily for 90 days. atorvastati 0 2022- No 40mg QD Take [address] n (LIPITOR) 11-02 tablet (40 L ukes 40 MG 00:00: 23:59 mg total) Medica l tablet 00 :00 by mouth Center nightly for 90 days. metoprolol 2022- No 25mg Q.5D Take [address] tartrate 11-02 tablet (25 Luke s (LOPRESSOR) 00:00: 23:59 mg total) Medical 25 MG 00 :00 by mouth 2 Center tablet (two) times daily for 90 days. sacubitriL- 2022- No 1{tbl} Q.5D Take [address] valsartan 11-02 tablet by Luke s (ENTRESTO) 00:00: 23:59 mouth 2 Med ical 24-26 mg 00 :00 (two) Center tablet times daily for 90 days. furosemide 2022- No 40mg QD Take [address] (LASIX) 40 11-02 tablet (40 Raekl kes MG tablet 00:00: 23:59 mg total) Me dical 00 :00 by mouth Center daily for 90 days. pantoprazol 2022- No 40mg QD Take [address] [facility] [facility] e 11-02- tablet (40 [facility] (PROTONIX) 00:00: 23:59 mg total) M edical 40 MG 00 :00 by mouth Center tablet daily for 30 days. pantoprazol 2022-0 2022- No 40mg QD Take [address] [facility] [facility] e 11-02-08 tablet (40 [facility] (PROTONIX) 00:00: 23:59 mg total) M edical 40 MG 00 :00 by mouth Center tablet daily for 30 days. atorvastati 2022- No 40mg QD Take [address] n (LIPITOR) 11-02 tablet (40 L ukes 40 MG 00:00: 00:00 mg total) Medica l tablet 00 :00 by mouth Center nightly for 30 days. furosemide 2022-0 2022- No 40mg QD Take [address] (LASIX) 40 11-02- tablet (40 Rakel kes MG tablet 00:00: 00:00 mg total) Me dical 00 :00 by mouth Center daily for 30 days. metoprolol 2022-0 2022- No 25mg Q.5D Take [address] tartrate 11-02- tablet (25 Luke s (LOPRESSOR) 00:00: 00:00 mg total) Medical 25 MG 00 :00 by mouth 2 Center tablet (two) times daily for 30 days. sacubitriL- 2022-0 2022- No 1{tbl} Q.5D Take [address] valsartan 11-02- tablet by Luke s (ENTRESTO) 00:00: 00:00 mouth 2 Med ical 24-26 mg 00 :00 (two) Center tablet times daily for 30 days. atorvastati 2022-2022- No 40mg QD Take [address] n (LIPITOR) 11-02 tablet (40 L ukes 40 MG 00:00: 00:00 mg total) Medica l tablet 00 :00 by mouth Center nightly for 30 days. furosemide 2022-0 2022- No 40mg QD Take [address] (LASIX) 40 11-02 tablet (40 Rakel kes MG tablet 00:00: 00:00 mg total) Me dical 00 :00 by mouth Center daily for 30 days. metoprolol 2022-0 2022- No 25mg Q.5D Take [address] tartrate 11-02- tablet (25 Luke s (LOPRESSOR) 00:00: 00:00 mg total) Medical 25 MG 00 :00 by mouth 2 Center tablet (two) times daily for 30 days. sacubitriL- 2022-0 2022- No 1{tbl} Q.5D Take [address] valsartan 11-02 tablet by Luke s (ENTRESTO) 00:00: 00:00 mouth 2 Med ical 24-26 mg 00 :00 (two) Center tablet times daily for 30 days. potassium 2022- Yes 20 mEq = 1 Me moria chloride 20 2-07 tab, PO, l mEq oral 16:19: BID, # 60 Herm roseanna tablet, 00 tab, 6 extended Refill(s), release Pharmacy: ([facility] #[id number], 175.26, cm, 10/02/22 13:30:00 MEASUREMENT ADVISOR, Height, 84.545, kg, 10/02/22 13:30:00 MEASUREMENT ADVISOR, Weight potassium 3-0 Yes 20 mEq = 1 Me moria chloride 20 2-07 tab, PO, l mEq oral 16:19: BID, # 60 Herm roseanna tablet, 00 tab, 6 extended Refill(s), release Pharmacy: ([facility] STORE #[id number], 175.26, cm, 10/02/22 13:30:00 MEASUREMENT ADVISOR, Height, 84.545, kg, 10/02/22 13:30:00 MEASUREMENT ADVISOR, Weight metoprolol 2022-0 Yes 12.5 mg = Me moria 25 mg oral 2-06 0.5 tab, l tablet, 20:22: PO, Daily, Herm roseanna extended 00 # 45 tab, release 3 Refill(s), Pharmacy: [facility] STORE #[id number], 175.26, cm, 10/02/22 13:30:00 MEASUREMENT ADVISOR, Height, 84.545, kg, 10/02/22 13:30:00 MEASUREMENT ADVISOR, Weight Lipitor 80 2022-0 Yes 80 mg = 1 Me moria mg oral 2-06 tab, PO, l tablet 20:22: Daily, # Fermin 00 90 tab, 3 Refill(s), Pharmacy: [facility] #[id number], Please fax refill request to [phone]., 175.26, cm, 10/02/22 13:30:00 MEASUREMENT ADVISOR, Height, 84.545, kg, 10/02/22 13:30:00 MEASUREMENT ADVISOR, Weight bumetanide 2022-0 Yes 1 mg = 1 Mem oria 1 mg oral 2-06 tab, PO, l tablet 20:22: BID, Take Sagar n 00 first dose first thing in the morning when you get up. Take the second dose at 3pm., # 180 tab, 3 Refill(s), Pharmacy: [facility] #[id number], Please fax refill request to ., 175.26, cm, 10/02/22 13:30:00 C... metoprolol 2022-0 Yes 12.5 mg = Me moria 25 mg oral 2-06 0.5 tab, l tablet, 20:22: PO, Daily, Herm roseanna extended 00 # 45 tab, release 3 Refill(s), Pharmacy: [facility] STORE #[id number], 175.26, cm, 10/02/22 13:30:00 MEASUREMENT ADVISOR, Height, 84.545, kg, 10/02/22 13:30:00 MEASUREMENT ADVISOR, Weight Lipitor 80 0 Yes 80 mg = 1 Me moria mg oral 2-06 tab, PO, l tablet 20:22: Daily, # Cornell 00 90 tab, 3 Refill(s), Pharmacy: [facility] #[id number], Please fax refill request to ., 175.26, cm, 10/02/22 13:30:00 MEASUREMENT ADVISOR, Height, 84.545, kg, 10/02/22 13:30:00 MEASUREMENT ADVISOR, Weight bumetanide Yes 1 mg = 1 Mem oria 1 mg oral 2-06 tab, PO, l tablet 20:22: BID, Take Sagar n 00 first dose first thing in the morning when you get up. Take the second dose at 3pm., # 180 tab, 3 Refill(s), Pharmacy: [facility] #[id number], Please fax refill request to ., 175.26, cm, 10/02/22 13:30:00 C... aspirin 81 2022-0 Yes 81 mg = 1 Me moria mg oral 2-06 cap, PO, l capsule 20:21: Daily, # Sagar n 00 90 cap, 3 Refill(s), [id number], Please fax refill request to ., 175.26, cm, 10/02/22 13:30:00 MEASUREMENT ADVISOR, Height, 84.545, kg, 10/02/22 13:30:00 MEASUREMENT ADVISOR, Weight Entresto 24 0 Yes 1 tab, PO, Memoria mg-26 mg 2-06 BID, # 180 l oral tablet 20:21: tab, 3 Herm roseanna 00 Refill(s), [id number], Please fax refill request to [phone]., 175.26, cm, 10/02/22 13:30:00 MEASUREMENT ADVISOR, Height, 84.545, kg, 10/02/22 13:30:00 MEASUREMENT ADVISOR, Weight aspirin 81 3-0 Yes 81 mg = 1 Me moria mg oral 2-06 cap, PO, l capsule 20:21: Daily, # Sagar n 00 90 cap, 3 Refill(s), [id number], Please fax refill request to ., 175.26, cm, 10/02/22 13:30:00 MEASUREMENT ADVISOR, Height, 84.545, kg, 10/02/22 13:30:00 MEASUREMENT ADVISOR, Weight Entresto 24 2022-0 Yes 1 tab, PO, Memoria mg-26 mg 2-06 BID, # 180 l oral tablet 20:21: tab, 3 Herm roseanna 00 Refill(s), [facility] #[id number], Please fax refill request to ., 175.26, cm, 10/02/22 13:30:00 MEASUREMENT ADVISOR, Height, 84.545, kg, 10/02/22 13:30:00 MEASUREMENT ADVISOR, Weight pantoprazol 2022-0 Yes 40 mg = 1 M emoria e 40 mg 2-06 tab, PO, l oral 19:27: Daily, 0 Cornell enteric 00 Refill(s) coated tablet pantoprazol 2022-0 Yes 40 mg = 1 M emoria e 40 mg 2-06 tab, PO, l oral 19:27: Daily, 0 [place] enteric 00 Refill(s) coated tablet valsartan 2022-0 Yes 80 mg = 1 Mem oria 80 mg oral 2-06 tab, PO, l tablet 19:26: Daily, 0 Fermin 00 Refill(s) Farxiga 5 3-0 Yes 5 mg = 1 Rubens maximo mg oral 2-06 tab, PO, l tablet 19:26: Daily, 0 Cornell 00 Refill(s) valsartan Yes 80 mg = 1 Mem oria 80 mg oral 2-06 tab, PO, l tablet 19:26: Daily, 0 [place] 00 Refill(s) Farxiga 5 Yes 5 mg = 1 Rubens maximo mg oral 2-06 tab, PO, l tablet 19:26: Daily, 0 [place] 00 Refill(s) iohexol 2020- No [id number] 120mL 120 mL, U nivers (OMNIPAQUE 12-25 Intravenou it y of 350 15:30: 15:13 s, ONCE, 1 [place] BULK-100 00 :00 dose, Sat Medica l mL) 12/25/20 at Branch injection 1030, 120 mL Routine famotidine 2020- [...] times daily with breakfast and lunch. metFORMIN 2018-0 Yes 1000mg Take 1,000 [facility] [...] (six) Center oral hours. suspension Magic 2019-0 3- No 5mL Take 5 mLs [facility] Mouthwash 1-28 03-09 by mouth [facility] WITH 00:00: 00:00 every 6 Medical steroid 00 :00 (six) Center oral hours. suspension Magic 2019-0 3- No 5mL Take 5 mLs [facility] Mouthwash - 03-09 by mouth [facility] WITH 00:00: 00:00 every 6 Medical steroid 00 :00 (six) Center oral hours. suspension HUMULIN 2017-08 Yes 30U Inject [facility] 70/30 U-100 2-18 30-60 [facility] INSULIN 100 00:00: Units Medic al unit/mL 00 [facility] (70-30) usly 2 injection (two) times daily with breakfast and dinner Inject 60 units after breakfast Inject 30 units after dinner. HUMULIN 2017-08 Yes 30U Inject [facility] 70/30 U-100 2-18 30-60 [facility]ukes INSULIN 100 00:00: Units Medic al unit/mL 00 [facility] (70-30) usly 2 injection (two) times daily with breakfast and dinner Inject 60 units after breakfast Inject 30 units after dinner. HUMULIN 2017-08 Yes 30U Inject [facility] 70/30 U-100 2-18 30-60 [facility] INSULIN 100 00:00: Units Medic al unit/mL 00 [facility] (70-30) usly 2 injection (two) times daily with breakfast and dinner Inject 60 units after breakfast Inject 30 units after dinner. HUMULIN 2017-08 Yes 30U Inject [facility] 70/30 U-100 2-18 30-60 [facility] INSULIN 100 00:00: Units Medic al unit/mL 00 [facility] (70-30) usly 2 injection (two) times daily with breakfast and dinner Inject 60 units after breakfast Inject 30 units after dinner. HUMULIN 2017-08- No 30U Inject [facility] 70/30 U-100 2-18 - 30-60 [facility] INSULIN 100 00:00: 00:00 Units Medi manisha unit/mL 00 :00 [facility] (70-30) usly 2 injection (two) times daily with breakfast and dinner Inject 60 units after breakfast Inject 30 units after dinner. HUMULIN 2017-08- No 30U Inject [facility] 70/30 U-100 10-14 30-60 [facility] INSULIN 100 00:00: 00:00 Units Medi manisha unit/mL 00 :00 [facility] (70-30) usly 2 injection (two) times daily with breakfast and dinner Inject 60 units after breakfast Inject 30 units after dinner. No known No [facility] Vital Signs Vital Name Observation Time Observation Value Comments Source HEIGHT 2022-10-31 12:00:00 177.8 cm WEIGHT 2022-10-31 12:00:00 83.462 kg HEIGHT 2022-10-31 12:00:00 177.8 cm WEIGHT 2022-10-31 12:00:00 83.462 kg HEIGHT 2022-10-31 12:00:00 177.8 cm WEIGHT 2022-10-31 12:00:00 83.462 kg Systolic blood 2020-12-25 19:00:00 140 mm[Hg] [facility] Diastolic blood 2020-12-25 19:00:00 80 mm[Hg] [facility] 2020-12-25 19:00:00 86 /min [facility] Respiratory rate 2020-12-25 19:00:00 19 /min [facility] Oxygen saturation in 2020-12-25 19:00:00 97 /min [facility] Arterial blood by [place] Medi manisha Pulse oximetry Branch Body temperature 2020-12-25 13:14:00 37.06 Riana [facility] Body height 2020-12-25 13:14:00 177.8 cm [facility] Body weight 2020-12-25 13:14:00 86.183 kg [facility] BMI 2020-12-25 13:14:00 27.26 kg/m2 [facility] Systolic blood 2022-11-02 12:00:00 103 mm[Hg] [facility] Diastolic blood 2022-11-02 12:00:00 59 mm[Hg] [facility] Heart rate 2022-11-02 12:00:00 67 /min [facility] Body temperature 2022-11-02 12:00:00 36.33 Riana [facility] Respiratory rate 2022-11-02 12:00:00 18 /min [facility] Oxygen saturation in 2022-11-02 12:00:00 99 /min [facility] Arterial blood by Medical Ce nter Pulse oximetry Body height 2022-10-31 12:00:00 177.8 cm [facility] Body weight 2022-10-31 12:00:00 83.462 kg [facility] BMI 2022-10-31 12:00:00 26.40 kg/m2 [facility] Procedures Procedure Date / Time Performing Clinician Source Performed POCT-GLUCOSE METER 2022-11-02 11:51:00 Amish Becker [facility] POCT-GLUCOSE METER 2022-11-02 06:08:00 Amish Becker [facility] CBC W/PLT COUNT & AUTO 2022-11-02 04:24:00 [facility] CBC W/PLT COUNT & AUTO 2022-11-02 04:24:00 [facility] BASIC METABOLIC PANEL 2022-11-02 04:24:00 Thuy [facility] MAGNESIUM 2022-11-02 04:24:00 Thuy [facility] PHOSPHORUS 2022-11-02 04:24:00 [facility] POCT-GLUCOSE METER 2022-11-01 20:51:00 Amish Becker [facility] POCT-GLUCOSE METER 2022-11-01 15:14:00 [facility] Amish C [facility] POCT-GLUCOSE METER 2022-11-01 11:41:00 [facility] Amish C [facility] POCT-GLUCOSE METER 2022-11-01 06:34:00 [facility] CBC W/PLT COUNT & AUTO 2022-11-01 04:23:00 [facility] CBC W/PLT COUNT & AUTO 2022-11-01 04:23:00 [facility] BASIC METABOLIC PANEL 2022-11-01 04:23:00 [facility] MAGNESIUM 2022-11-01 04:23:00 [facility] PHOSPHORUS 2022-11-01 04:23:00 [facility] HEMOGLOBIN A1C 2022-11-01 04:23:00 [facility] TSH/FREE T4 IF 2022-11-01 04:23:00 [facility] LIPID PANEL 2022-11-01 04:23:00 [facility] B-TYPE NATRIURETIC 2022-11-01 04:23:00 [facility] ([facility] Center POCT-GLUCOSE METER 2022-10-31 20:32:00 [facility] TROPONIN I 2022-10-31 20:30:00 [facility] POCT-GLUCOSE METER 2022-10-31 16:27[facility] 2022-10-31 14:10:00 [facility] BEDSIDE Center TROPONIN I 2022-10-31 14:09:00 Demi Garrisonjuliannaingris [facility] 2D ECHO W/ DOPPLER 2022-10-31 13:05:54 [facility] (CW/PW/COLOR) [place] POCT-GLUCOSE METER 2022-10-31 12:40:00 Ebenezer Patino [facility] EKG-SCANNED 2022-10-31 00:00:00 ProviderAlena [facility] TROPONIN I 2020-12-25 17:43:00 Luba Donovan [facility] CT ABDOMEN PELVIS W 2020-12-25 15:16:27 Luba Donovan [facility] CONTRAST [facility] Branch XR CHEST 1 VW 2020-12-25 13:41:53 Luba Donovan [facility] LIPASE 2020-12-25 13:29:00 Luba Donovan [facility] TROPONIN I 2020-12-25 13:29:00 Luba Donovan [facility] HEPATIC FUNCTION PANEL 2020-12-25 13:29:00 [id number] (ALB,T.PRO,BILI Medical Branch T,BU/BC,ALT,AST,ALK PHOS) BASIC METABOLIC PANEL 2020-12-25 13:29:00 Luba Donovan [facility] (NA, K, CL, CO2, Medical Branch GLUCOSE, BUN, CREATININE, CA) CBC WITH DIFF 2020-12-25 13:29:00 Luba Donovan [facility] COVID-19 (ID NOW RAPID 2020-12-25 13:29:00 Luba Donovan Un [facility] TESTING) Medical Branch HB ECG ROUTINE & RHYTHM 2020-12-25 13:27:27 [facility] NOTICE OF PRIVACY 2020-12-25 13:07:34 Doctor Unassigned, No [facility] PRACTICES Name Medical Branch CONSENT/REFUSAL FOR 2020-12-25 13:07:20 [facility], [facility] Name [facility] [place] Plan of Care Planned Activity Planned Date Details Comments Source Future Scheduled 2023-11-[address] [facility] Test 00:00:00 Counseling and Medical Cente r Screening (12+) [code = Tobacco Cessation Counseling and Screening (12+)] Future Scheduled 2023-11-[address] [facility] Test 00:00:00 Counseling and Medical Cente r Screening (12+) [code = Tobacco Cessation Counseling and Screening (12+)] Future Scheduled 2023-04-27 Influenza Vaccine (#1) [facility] 00:00:00 [code = Influenza Medical Ce nter Vaccine (#1)] Future Scheduled 2023-04-27 Influenza Vaccine (#1) [facility] 00:00:00 [code = Influenza Medical Ce nter Vaccine (#1)] Future Scheduled 2022-08-[address] [facility] Test 00:00:00 (12+) [code = Medical Center DEPRESSION SCREENING (12+)] Future Scheduled 2022-08-27 FALLS RISK SCREENING [facility] Test 00:00:00 [code = FALLS RISK Medical C enter SCREENING] Future Scheduled 2022-08-[address] [facility] Test 00:00:00 (12+) [code = Medical Center DEPRESSION SCREENING (12+)] Future Scheduled 2022-08-27 FALLS RISK SCREENING [facility] Test 00:00:00 [code = FALLS RISK Medical C enter SCREENING] Future Scheduled 2021-04-27 INFLUENZA VACCINE (#1) C [...] A1c [facility] Test 00:00:00 measurement (procedure) [facility] [code = 28102557] Future Scheduled 2018-08-[address] [facility] Test 00:00:00 WELLNESS (YEAR 2 or Medical Center FIRST YEAR if no IPPE) [code = MEDICARE ANNUAL WELLNESS (YEAR 2 or FIRST YEAR if no IPPE)] Future Scheduled 2018-08-[address] [facility] Test 00:00:00 WELLNESS (YEAR 2 or Medical Center FIRST YEAR if no IPPE) [code = MEDICARE ANNUAL WELLNESS (YEAR 2 or FIRST YEAR if no IPPE)] Future Scheduled 2017 PNEUMOCOCCAL 65+ YRS ([address] [facility] Test 00:00:00 of 1 - [id number] Medica l Center PCV13) [code = PNEUMOCOCCAL 65+ YRS (1 of 1 - [id number] PCV13)] Future Scheduled [address] [facility] Test 00:00:00 aneurysm screening Medical C enter (procedure) [code = 549468072] Future Scheduled [address] [facility] Test 00:00:00 aneurysm screening Medical C enter (procedure) [code = 723046227] Future Scheduled 2002 SHINGLES VACCINES ([address] [facility] Test 00:00[facility]00 2) [facility] Future Scheduled 2002 SHINGLES VACCINES ([address] [facility] Test 00:00:00 2) [facility] ([facility] of 2)] Future Scheduled 2002 SHINGLES VACCINES ([address] [facility] Test 00:00:00 2) [facility] Future Scheduled 1971 DTAP/TDAP/TD [facility]INES [facility] Test 00:00:00 (1 - Tdap) [code = Medical C enter DTAP/TDAP/TD VACCINES (1 - Tdap)] Future Scheduled 1971 DTAP/TDAP/TD VACCINES [facility] Test 00:00:00 (1 - Tdap) [code = Medical C enter DTAP/TDAP/TD VACCINES (1 - Tdap)] Future Scheduled 1971 DTAP/TDAP/TD VACCINES [facility] Test 00:00:00 (1 - Tdap) [code = Medical C enter DTAP/TDAP/TD VACCINES (1 - Tdap)] Future Scheduled 1970 HEPATITIS C [facility]CRE[facility]ING [facility] Test 00:00:00 [code = [facility] SCREENING] Future Scheduled 1970 HEPATITIS C [facility] Test 00:00:00 [code = HEPATITIS C [facility] Center SCREENING] Future Scheduled 1970 HEPATITIS C [facility] Test 00:00:00 [code = HEPATITIS C Medical Center SCREENING] Future Scheduled 1964 COVID-19 VACCINE (1) [facility] Test 00:00:00 [code = COVID-[address] VACCINE (1)] Future Scheduled 1962 DIABETIC EYE EXAM [code [facility] Test 00:00:00 = DIABETIC EYE EXAM] Medical Center Future Scheduled 1962 Urine screening for [facility] Test 00:00:00 protein (procedure) [facility] [code = 626990166] Future Scheduled 1958 PNEUMOCOCCAL 65+ YRS ([address] [facility] Test 00:00:00 - PCV) [code = Medical Cente r PNEUMOCOCCAL 65+ YRS (1 - PCV)] Future Scheduled 1958 PNEUMOCOCCAL 65+ YRS ([address] [facility] Test 00:00:00 - PCV) [code = Medical Cente r PNEUMOCOCCAL 65+ YRS (1 - PCV)] Future Scheduled 1953-03-13 COVID-19 VACCINE (#1) [facility] Test 00:00:00 [code = COVID-[address] VACCINE (#1)] Future Scheduled 1953-03-13 COVID-19 VACCINE (#1) [facility] Test 00:00:00 [code = COVID-[address] VACCINE (#1)] Future Scheduled 1952 CT Colonography (combo) [facility] Test 00:00:00 [code = CT Colonography [facility] (combo)] Future Scheduled 1952 Screening for malignant [facility] Test 00:00:00 neoplasm of colon Medical Ce nter (procedure) [code = 133399516] Future Scheduled 1952 Screening for malignant [facility] Test 00:00:00 neoplasm of colon Medical Ce nter (procedure) [code = 391015580] Future Scheduled 1952 Screening for malignant [facility] Test 00:00:00 neoplasm of colon Medical Ce nter (procedure) [code = 277373677] Future Scheduled 1952 Screening for malignant [facility] Test 00:00:00 neoplasm of colon Medical Ce nter (procedure) [code = 989660279] Future Scheduled 1952 Sigmoidoscopy [code = [facility] Test 00:[facility]:00 Sigmoidoscopy] Medical Cente r Future Scheduled 1952 Screening for malignant [facility] Test 00:00:00 neoplasm of colon Medical Ce nter (procedure) [code = 801458545] Future Scheduled 1952 CT Colonography (combo) [facility] Test 00:00:00 [code = CT Colonography [facility] (combo)] Future Scheduled 1952 Screening for malignant [facility] Test 00:00:00 neoplasm of colon Medical Ce nter (procedure) [code = 913913304] Future Scheduled 1952 Screening for malignant [facility] Test 00:00:00 neoplasm of colon Medical Ce nter (procedure) [code = 047856313] Future Scheduled 1952 Screening for malignant [facility] Test 00:00:00 neoplasm of colon Medical Ce nter (procedure) [code = 766801726] Future Scheduled 1952 Screening for malignant [facility] Test 00:00:00 neoplasm of colon Medical Ce nter (procedure) [code = 685439939] Future Scheduled 1952 Sigmoidoscopy [code = [facility] Test 00:00:00 Sigmoidoscopy] Medical Cente r Encounters Start End Encounter Admission Attending Care Care Encounter Source Date/Time Date/Time Type Type Clinicians Facility Department ID 2022-11-20 Outpatient [facility] [id number] [place] 13:42:49 [id number] [facility] 2022-11-10 Outpatient RUSSELL, [facility] [id number] [facility] 14:48:42 [facility] 2022-11-03 Outpatient [facility] [id number] [place] 09:03:58 [id number] [facility] 2022-10-04 Outpatient [facility] [id number] [place] 02:24:14 [id number] [facility] 2022-10-02 Outpatient [facility] [id number] [place] 13:00:36 [id number] [facility] 2022-11-03 2022-11-04 Outpt Diag CELIA [facility] [id number] [facility] 15:17:00 05:59:00 Services Outpatient 03 l [facility] 2022-11-03 2022-11-04 Outpt Diag CELIA [facility] [id number] [facility] 15:17:00 05:59:00 Services Outpatient 03 l [facility] 2022-11-03 2022-11-03 Outpatient KhushisinmadalynISHA [facility] [id number] 09:17:00 23:59:[address] [place] [address] 2022-10-31 2022-11-02 Hospital [facility] [id number] [facility] 12[facility] 15:55:00 Encounter Amish Becker [facility] 2022-10-31 2022-11-02 [facility] [id number] [facility] 12:02:00 15:55:00 Encounter Amish Becker [facility] 2022-10-31 2022-11-02 Inpatient ER [facility] Cardiology [id number] [facility] 12:02:00 15:55:00 [facility] 2022-10-31 2022-10-31 Travel [facility] [id number] [facility] 00:[facility] 00:[facility]:00 [facility] 2022-10-31 2022-10-31 Travel [facility] [id number] [facility] 00:[facility] 00:00:00 [facility] 2022-10-02 2022-10-02 Outpatient RUSSELL [facility] [id number] [facility] 13:02:00 23:59:00 JIMBO 2020-12-25 2020-12-25 Emergency [place] [facility] [id number] [facility] 08:15:00 14:29:00 Luba Patel [id number] starr [facility] [id number] [facility] [id number] [place] [address] Branch 2020-12-25 2020-12-25 Emergency X ZION [facility] ERT [id number] [facility] 08:15:00 14:29:00 [facility] Results Test Description Test Time Test Comments Results Result Comments Source RADRPT 2022-11-03 19:31:24 Test Item Value Reference Range Interpretation Comme nts RADRPT (test code = RADRPT) EXAM: CT CHEST WITHOUT CONTRASTDATE: 05/2023 11:27 INDICATION: - R06.02 Shortness of breathTECHNIQUE: Volumetric CT acquisition of the chest without contrast. Axial, sagittal and coronal reconstructions. MIP images were performedDLP: Please refer to lead neurodiagnostic technologist report.COMPARISON: None available.FINDINGS: Lower Neck: The visible portions or the lower neck and thyroid are unremarkable.Heart, mediastinum and great Vessels: Heart size is normal and there is a small anterior pericardial effusion. Decreased intracardiac blood pool attenuation is suggestive of anemia. Measurements of the pulmonary trunk and thoracic aorta within normal limits. There are three-vessel coronary artery calcifications with stents. Lymphatics: Multicompartment mediastinal lymph nodes measuring up to 7 mm, likely reactive in nature. Lack of intravenous contrast limits evaluation of the hilar spaces.Airways, Lungs and Pleura: Central bronchial wall thickening. Centrilobular groundglass and nodular opacities are seen bilaterally, more confluent in the right middle and right lower lobes. In addition there are scattered more focal solid pulmonary nodules measuring up to 6 mm. Calcified granuloma right lower lobe. Bilateral punctate intrafissural lymph nodes. Small right and trace left pleural effusions. No pneumothorax.Bones and Soft Tissues: Degenerative changes of the thoracic spine. There is osteopenia. No acute or suspicious abnormality.Upper abdomen: Cholecystectomy clips are present. Bilateral perinephric fat stranding. Atherosclerotic calcifications of the abdominal aorta and branch vessels. IMPRESSION: 1. Lung parenchymal abnormalities more predominant in the right middle and right lower lobes which could represent an infectious or inflammatory bronchiolitis.2. Several more focal bilateral pulmonary nodules measuring up to 6 mm. Recommend repeat follow-up CT chest in 6 months.3. Small right and trace left pleural effusions.4. Few reactive mediastinal lymph nodes.5. Diffuse three-vessel coronary artery calcifications with stents.6. Other incidental findings as described above. [id number] 19:31:24 Test Item Value Reference Range Interpretation Comments RADRPT (test code EXAM: CT CHEST WITHOUT = RADRPT) CONTRASTDATE: 11/03/2022 11:27 INDICATION: - R06.02 Shortness of breathTECHNIQUE: Volumetric CT acquisition of the chest without contrast. Axial, sagittal and coronal reconstructions. MIP images were performedDLP: Please refer to lead neurodiagnostic technologist report.COMPARISON: None available.FINDINGS: Lower Neck: The visible portions or the lower neck and thyroid are unremarkable.Heart, mediastinum and great Vessels: Heart size is normal and there is a small anterior pericardial effusion. Decreased intracardiac blood pool attenuation is suggestive of anemia. Measurements of the pulmonary trunk and thoracic aorta within normal limits. There are three-vessel coronary artery calcifications with stents. Lymphatics: Multicompartment mediastinal lymph nodes measuring up to 7 mm, likely reactive in nature. Lack of intravenous contrast limits evaluation of the hilar spaces.Airways, Lungs and Pleura: Central bronchial wall thickening. Centrilobular groundglass and nodular opacities are seen bilaterally, more confluent in the right middle and right lower lobes. In addition there are scattered more focal solid pulmonary nodules measuring up to 6 mm. Calcified granuloma right lower lobe. Bilateral punctate intrafissural lymph nodes. Small right and trace left pleural effusions. No pneumothorax.Bones and Soft Tissues: Degenerative changes of the thoracic spine. There is osteopenia. No acute or suspicious abnormality.Upper abdomen: Cholecystectomy clips are present. Bilateral perinephric fat stranding. Atherosclerotic calcifications of the abdominal aorta and branch vessels. IMPRESSION: 1. Lung parenchymal abnormalities more predominant in the right middle and right lower lobes which could represent an infectious or inflammatory bronchiolitis.2. Several more focal bilateral pulmonary nodules measuring up to 6 mm. Recommend repeat follow-up CT chest in 6 months.3. Small right and trace left pleural effusions.4. Few reactive mediastinal lymph nodes.5. Diffuse three-vessel coronary artery calcifications with stents.6. Other incidental findings as described above. [id number] 18:38:14 Test Item Value Reference Range Interpretation Comments RADRPT (test code EXAM: US ANKLE BRACHIAL = RADRPT) INDEX WITH DOPPLERDATE: 11/03/2022 INDICATION: - I25.10 Atherosclerotic heart disease of [place] coronary artery without angina pectoris ADDITIONAL INFORMATION: None.COMPARISON: None. TECHNIQUE: Segmental pressures and continuous wave Doppler of the bilateral lower extremity arteries.FINDINGS:Right Extremity Doppler:Posterior Tibial Artery: Triphasic.Dorsalis Pedis Artery: Monophasic.Right Indices:PT: 0.99 Left Extremity Doppler:Posterior Tibial Artery: Monophasic.Dorsalis Pedis Artery: Monophasic.Left Indices:PT: 0.88IMPRESSION:1. Decreased BECKY in the left lower extremity consistent with mild peripheral arterial disease.2. Normal right lower extremity resting BECKY. *BECKY criteria for resting pressures:Non Compressible: Normal: 0.95-1.4Mild: 080-0.94Moderate: 0.50-0.79Severe: 0.30-0.49Critical: 0.20 or less*TBI criteria:Normal: 0.60 or more Mild: 0.40-0.59Moderate-Severe: 0.21-0.39Severe: 0.20 or less [facility] [id number] 18:38:14 Test Item Value Reference Range Interpretation Comments RADRPT (test code EXAM: US ANKLE BRACHIAL = RADRPT) INDEX WITH DOPPLERDATE: 11/03/2022 INDICATION: - I25.10 Atherosclerotic heart disease of [place] coronary artery without angina pectoris ADDITIONAL INFORMATION: None.COMPARISON: None. TECHNIQUE: Segmental pressures and continuous wave Doppler of the bilateral lower extremity arteries.FINDINGS:Right Extremity Doppler:Posterior Tibial Artery: Triphasic.Dorsalis Pedis Artery: Monophasic.Right Indices:PT: 0.99 Left Extremity Doppler:Posterior Tibial Artery: Monophasic.Dorsalis Pedis Artery: Monophasic.Left Indices:PT: 0.88IMPRESSION:1. Decreased BECKY in the left lower extremity consistent with mild peripheral arterial disease.2. Normal right lower extremity resting BECKY. *BECKY criteria for resting pressures:Non Compressible: Normal: 0.95-1.4Mild: 080-0.94Moderate: 0.50-0.79Severe: 0.30-0.49Critical: 0.20 or less*TBI criteria:Normal: 0.60 or more Mild: 0.40-0.59Moderate-Severe: 0.21-0.39Severe: 0.20 or less [facility] [id number] 17:40:37 Test Item Value Reference Range Interpretation Comments RADRPT (test code = EXAM: US RENALDATE: RADRPT) 11/03/2022 10:00 INDICATION: - E11.9 Type 2 diabetes mellitus without complications ADDITIONAL INFORMATION: None.COMPARISON: None. TECHNIQUE: Multiplanar grayscale and color Doppler ultrasound of the kidneys and bladder.FINDINGS:Right kidney:Size: 12.3 x 5.4 x 5.2 cmCortical thickness: Normal.Hydronephrosis: None.Echogenicity: Normal.Calculi: None.Cysts/Masses: None.Left kidney:Size: 11 x 5 x 5.2 cmCortical thickness: Normal.Hydronephrosis: None.Echogenicity: Normal.Calculi: None.Cysts/Masses: None.Bladder: Normal with bilateral ureteral jets.Free fluid: None.Other: None.IMPRESSION:1. Normal renal ultrasound. [facility] [id number] 17:40:37 Test Item Value Reference Range Interpretation Comments RADRPT (test code = EXAM: US RENALDATE: RADRPT) 11/03/2022 10:00 INDICATION: - E11.9 Type 2 diabetes mellitus without complications ADDITIONAL INFORMATION: None.COMPARISON: None. TECHNIQUE: Multiplanar grayscale and color Doppler ultrasound of the kidneys and bladder.FINDINGS:Right kidney:Size: 12.3 x 5.4 x 5.2 cmCortical thickness: Normal.Hydronephrosis: None.Echogenicity: Normal.Calculi: None.Cysts/Masses: None.Left kidney:Size: 11 x 5 x 5.2 cmCortical thickness: Normal.Hydronephrosis: None.Echogenicity: Normal.Calculi: None.Cysts/Masses: None.Bladder: Normal with bilateral ureteral jets.Free fluid: None.Other: None.IMPRESSION:1. Normal renal ultrasound. [facility] [id number] 17:38:49 Test Item Value Reference Range Interpretation Comments RADRPT (test code EXAM: US BILATERAL LOWER = RADRPT) EXTREMITY ARTERIAL DOPPLERDATE: 11/03/2022 10:30 INDICATION: - I25.10 Atherosclerotic heart disease of [place] coronary artery without angina pectoris ADDITIONAL INFORMATION: None.COMPARISON: None. TECHNIQUE: Multiplanar grayscale, color Doppler, and spectral Doppler ultrasound of the bilateral lower extremity arteries.FINDINGS:Mild atherosclerotic vascular calcification seen throughout the left distal extremity arteries and right dorsalis pedis artery. No focal areas of narrowing or significantly increased velocities seen. Right Extremity Spectral Doppler:Common Femoral Artery: Triphasic. Normal velocity (131 cm/s).Profunda Femoral Artery: Triphasic. Normal velocity (105 cm/s).Superficial Femoral Artery: Triphasic. Normal velocity (121 cm/s).Popliteal Artery: Triphasic. Normal velocity (95 cm/s).Posterior Tibialis Artery: Triphasic. Normal velocity (78 cm/s).Anterior Tibialis Artery: Triphasic. Normal velocity (74 cm/s).Dorsalis Pedis Artery: Monophasic. Normal velocity (58 cm/s).Left Extremity Spectral Doppler:Common Femoral Artery: Triphasic. Normal velocity (83 cm/s).Profunda Femoral Artery: Triphasic. Normal velocity (89 cm/s).Superficial Femoral Artery: Triphasic. Normal velocity (109 cm/s).Popliteal Artery: Triphasic. Normal velocity (98 cm/s).Posterior Tibialis Artery: Monophasic. Normal velocity (61 cm/s).Anterior Tibialis Artery: Monophasic. Normal velocity (93 cm/s).Dorsalis Pedis Artery: Monophasic. Normal velocity (74 cm/s).Other: None.IMPRESSION:1. Mild atherosclerotic vascular calcification seen throughout the left distal extremity arteries and right dorsalis pedis artery with monophasic flow.2. No focal areas of narrowing or significantly increased velocities to indicate hemodynamically significant stenosis. [facility] [id number] 17:38:49 Test Item Value Reference Range Interpretation Comments RADRPT (test code EXAM: US BILATERAL LOWER = RADRPT) EXTREMITY ARTERIAL DOPPLERDATE: 11/03/2022 10:30 INDICATION: - I25.10 Atherosclerotic heart disease of [place] coronary artery without angina pectoris ADDITIONAL INFORMATION: None.COMPARISON: None. TECHNIQUE: Multiplanar grayscale, color Doppler, and spectral Doppler ultrasound of the bilateral lower extremity arteries.FINDINGS:Mild atherosclerotic vascular calcification seen throughout the left distal extremity arteries and right dorsalis pedis artery. No focal areas of narrowing or significantly increased velocities seen. Right Extremity Spectral Doppler:Common Femoral Artery: Triphasic. Normal velocity (131 cm/s).Profunda Femoral Artery: Triphasic. Normal velocity (105 cm/s).Superficial Femoral Artery: Triphasic. Normal velocity (121 cm/s).Popliteal Artery: Triphasic. Normal velocity (95 cm/s).Posterior Tibialis Artery: Triphasic. Normal velocity (78 cm/s).Anterior Tibialis Artery: Triphasic. Normal velocity (74 cm/s).Dorsalis Pedis Artery: Monophasic. Normal velocity (58 cm/s).Left Extremity Spectral Doppler:Common Femoral Artery: Triphasic. Normal velocity (83 cm/s).Profunda Femoral Artery: Triphasic. Normal velocity (89 cm/s).Superficial Femoral Artery: Triphasic. Normal velocity (109 cm/s).Popliteal Artery: Triphasic. Normal velocity (98 cm/s).Posterior Tibialis Artery: Monophasic. Normal velocity (61 cm/s).Anterior Tibialis Artery: Monophasic. Normal velocity (93 cm/s).Dorsalis Pedis Artery: Monophasic. Normal velocity (74 cm/s).Other: None.IMPRESSION:1. Mild atherosclerotic vascular calcification seen throughout the left distal extremity arteries and right dorsalis pedis artery with monophasic flow.2. No focal areas of narrowing or significantly increased velocities to indicate hemodynamically significant stenosis. [facility]-Glucose [id number] 13:06:33 Test Item Value Reference Range Interpretation Comments POC-Glucose Meter (test 169 mg/dL 70-110 H : TE STED AT [facility] code = 1538) [address] [place] [address]: Marine Propulsion Technician/Techni jorge ID = [id number] for Mary Donovan Lab Interpretation (test Abnormal code = 42977-1) [facility] [id number] 13:06:33 Test Item Value Reference Range Interpretation Comments POC-Glucose Meter (test 169 mg/dL 70-110 H : TE STED AT [facility] code = 1538) [address] [place] [address]: Marine Propulsion Technician/Techni jorge ID = [id number] for Mary Donovan Lab Interpretation (test Abnormal code = 01650-4) [facility]-GLUCOSE [id number] 13:06:33 Test Item Value Reference Range Interpretation Comments POC-GLUCOSE METER 169 mg/dL 70-110 H : TESTED A T [facility] 1317 (BEAKER) (test code [facility], = 1538) [place] [address]: Marine Propulsion Technician/Techni jorge ID = [id number] for Kitty Funes POCT-GLUCOSE [id number] 06:29:40 Test Item Value Reference Range Interpretation Comments POC-GLUCOSE METER 133 mg/dL 70-110 H : TESTED A T [facility] [address] (BEAKER) (test code [address], = 1538) [facility] [place] [address]: Marine Propulsion Technician/Techni jorge ID = [id number] for Verna Chicas [id number] 05:26:09 Test Item Value Reference Range Interpretation Comments MAGNESIUM (BEAKER) (test code = 2.2 mg/dL 1.5-3.0 627) Marine Propulsion Technician ID - [id number] ID - [id number] ID - [id number] ID - [id number] BASIC METABOLIC [id number] 05:25:10 Test Item Value Reference Range Interpretation Comments SODIUM (BEAKER) 141 meq/L 135-148 (test code = 381) POTASSIUM 3.6 meq/L 3.6-5.5 (BEAKER) (test code = 379) CHLORIDE (BEAKER) 104 meq/L 98-106 (test code = 382) CO2 (BEAKER) 23 meq/L 20-29 (test code = 355) BLOOD UREA 49 mg/dL 10-26 H NITROGEN (BEAKER) (test code = 354) CREATININE 2.80 mg/dL 0.50-1.20 H (BEAKER) (test code = 358) GLUCOSE RANDOM 127 mg/dL 70-110 H (BEAKER) (test code = 652) CALCIUM (BEAKER) 8.3 mg/dL 8.5-10.5 L (test code = 697) EGFR (BEAKER) 24 Interpretatio n of eGFR (test code = mL/min/1.73 values Stage De scription 1092) sq m Result G1 Eva l or high >=90 G2 Mildly decreased 60-89 G3a Mildl y to moderately 45-5 9 G3b Moderately to s everely 30-44 G4 Severl y decreased 15-29 G5 Kidne y failure <15Reported eGF R is based on the CKD-EPI 2021 equation that d oes not use a race coefficientEsti mated GFR is not as accur ate as Creatinine Mary bianca in predicting glom erular filtration rate . Estimated GFR is not appl icable for dialysis patien ts Marine Propulsion Technician ID - [id number] ID - [id number] ID - [id number] ID - [id number] ID - [id number] ID - [id number] ID - [id number] ID - [id number] ID - [id number] ID - [id number] 05:23:09 Test Item Value Reference Range Interpretation Comments PHOSPHORUS (BEAKER) (test code = 4.1 mg/dL 2.5-4.5 604) Marine Propulsion Technician ID - [id number] W/PLT COUNT & AUTO [id number] 05:14:47 Test Item Value Reference Range Interpretation Comments WHITE BLOOD CELL COUNT (BEAKER) 5.6 K/ L 4.0-10.0 (test code = 775) RED BLOOD CELL COUNT (BEAKER) 3.79 M/ L 4.20-5.80 L (test code = 761) HEMOGLOBIN (BEAKER) (test code = 10.1 GM/DL 13.0-16.8 L 410) HEMATOCRIT (BEAKER) (test code = 31.6 % 36.0-50.0 L 411) MEAN CORPUSCULAR VOLUME (BEAKER) 83 fL 82-99 (test code = 753) MEAN CORPUSCULAR HEMOGLOBIN 26.6 pg 27.0-33.0 L (BEAKER) (test code = 751) MEAN CORPUSCULAR HEMOGLOBIN CONC 32.0 GM/DL 32.0-36.0 (BEAKER) (test code = 752) RED CELL DISTRIBUTION WIDTH 13.8 % 12.0-15.0 (BEAKER) (test code = 412) PLATELET COUNT (BEAKER) (test 264 K/CU MM 150-430 code = 756) MEAN PLATELET VOLUME (BEAKER) 10.5 fL 6.0-11.5 (test code = 754) NUCLEATED RED BLOOD CELLS 0 /100 WBC 0-0 (BEAKER) (test code = 413) NEUTROPHILS RELATIVE PERCENT 64 % (BEAKER) (test code = 429) LYMPHOCYTES RELATIVE PERCENT 23 % (BEAKER) (test code = 430) MONOCYTES RELATIVE PERCENT 9 % (BEAKER) (test code = 431) EOSINOPHILS RELATIVE PERCENT 3 % (BEAKER) (test code = 432) BASOPHILS RELATIVE PERCENT 1 % (BEAKER) (test code = 437) NEUTROPHILS ABSOLUTE COUNT 3.61 K/ L 1.80-8.00 (BEAKER) (test code = 670) LYMPHOCYTES ABSOLUTE COUNT 1.31 K/ L 1.48-4.50 L (BEAKER) (test code = 414) MONOCYTES ABSOLUTE COUNT (BEAKER) 0.48 K/ L 0.00-1.30 (test code = 415) EOSINOPHILS ABSOLUTE COUNT 0.19 K/ L 0.00-0.50 (BEAKER) (test code = 416) BASOPHILS ABSOLUTE COUNT (BEAKER) 0.04 K/ L 0.00-0.20 (test code = 417) IMMATURE GRANULOCYTES-RELATIVE 0.20 % 0.00-0.00 H PERCENT (BEAKER) (test code = 2801) POCT-GLUCOSE [id number] 21:06:50 Test Item Value Reference Range Interpretation Comments POC-GLUCOSE METER 167 mg/dL 70-110 H : TESTED A T [facility] (BEAKER) ([facility] [address] [facility] [place] [address]: Marine Propulsion Technician/Techni jorge ID = [id number] for Verna Chicas POCT-GLUCOSE [id number] 15:35:11 Test Item Value Reference Range Interpretation Comments POC-GLUCOSE METER 152 mg/dL 70-110 H : TESTED A T [facility] [address] (BEAKER) (test code [facility], = 1538) [place] [address]: Marine Propulsion Technician/Techni jorge ID = [id number] for Audrey Ballesteros POCT-GLUCOSE [id number] 15:35:10 Test Item Value Reference Range Interpretation Comments POC-GLUCOSE METER 129 mg/dL 70-110 H : TESTED A T [facility] [address] (BEAKER) (test code [facility] [place] [address]: Marine Propulsion Technician/Techni jorge ID = [id number] for Kitty Funes POCT-GLUCOSE [id number] 06:51:37 Test Item Value Reference Range Interpretation Comments POC-GLUCOSE METER 113 mg/dL 70-110 H : TESTED A T [facility] [address] (BEAKER) ([facility] [address] [facility] = [facility] [place] [address]: Marine Propulsion Technician/Techni jorge ID = [id number] for Verna Chicas TSH/FREE T4 IF [id number] 05:08:24 Test Item Value Reference Range Interpretation Comments THYROID STIMULATING HORMONE 0.670 uIU/mL 0.350-5.500 (BEAKER) (test code = 772) Marine Propulsion Technician ID - LITOHEMOGLOBIN [id number] 05:05:38 Test Item Value Reference Range Interpretation Comments HEMOGLOBIN A1C (BEAKER) (test code = 5.9 % 4.3-6.1 368) Marine Propulsion Technician ID - LITOB-TYPE NATRIURETIC FACTOR (BNP)2022-11-01 04:57:04 Test Item Value Reference Range Interpretation Comments B-TYPE NATRIURETIC PEPTIDE 1155 pg/mL 0-100 H (BEAKER) (test code = 700) Marine Propulsion Technician ID - LITOBASIC METABOLIC [id number] 04:55:28 Test Item Value Reference Range Interpretation Comments SODIUM (BEAKER) 142 meq/L 135-148 (test code = 381) POTASSIUM 3.5 meq/L 3.6-5.5 L (BEAKER) (test code = 379) CHLORIDE (BEAKER) 109 meq/L 98-106 H (test code = 382) CO2 (BEAKER) 22 meq/L 20-29 (test code = 355) BLOOD UREA 42 mg/dL 10-26 H NITROGEN (BEAKER) (test code = 354) CREATININE 2.38 mg/dL 0.50-1.20 H (BEAKER) (test code = 358) GLUCOSE RANDOM 104 mg/dL 70-110 (BEAKER) (test code = 652) CALCIUM (BEAKER) 8.2 mg/dL 8.5-10.5 L (test code = 697) EGFR (BEAKER) 29 Interpretatio n of eGFR (test code = mL/min/1.73 values Stage D escription 1092) sq m Result G1 Eva l or high >=90 G2 Mildly decreased 60-89 G3a Mildl y to moderately 45-5 9 G3b Moderately to s everely 30-44 G4 Severl y decreased 15-29 G5 Kidney failure <15Reported eGF R is based on the CKD-EPI 1 equation that d oes not use a race coefficientEsti mated GFR is not as accur ate as Creatinine Mary bianca in predicting glom erular filtration rate . Estimated GFR is not appl icable for dialysis patien ts Marine Propulsion Technician ID - LITOOperator ID - LITOOperator ID - LITOOperator ID - LITOOperator ID - LITOOperator ID - LITOOperator ID - LITOOperator ID - LITOOperator ID - LITOOperator ID - LITOLIPID [id number] 04:54:13 Test Item Value Reference Range Interpretation Comments TRIGLYCERIDES (BEAKER) (test code = 82 mg/dL 540) CHOLESTEROL (BEAKER) (test code = 135 mg/dL 631) HDL CHOLESTEROL (BEAKER) (test code 57 mg/dL = 976) LDL CHOLESTEROL CALCULATED (BEAKER) 62 mg/dL (test code = 633) Triglyceride Reference Range: Low Risk <150 Borderline 150-199 High Risk 200- 499 Very High Risk >=500Cholesterol Reference Range: Low Risk <200 Borderline 200-239 High Risk >240HDL Cholesterol Reference Range: Low Risk >=60 High Risk <40LDL Cholesterol Reference Range: Optimal <100 Near Optimal 100-129 Borderline 130-159 High 160-189 Very High >=190 Marine Propulsion Technician ID - LITOOperatorID - LITOOperator ID - [id number] 04:54:13 Test Item Value Reference Range Interpretation Comments MAGNESIUM (BEAKER) (test code = 1.9 mg/dL 1.5-3.0 627) Marine Propulsion Technician ID - LITOOperator ID - LITOOperator ID - LITOOperator ID - MONIQUE [id number] 04:51:31 Test Item Value Reference Range Interpretation Comments PHOSPHORUS (BEAKER) (test code = 4.0 mg/dL 2.5-4.5 604) Marine Propulsion Technician ID - LITOCBC W/PLT COUNT & AUTO [id number] 04:45:40 Test Item Value Reference Range Interpretation Comments WHITE BLOOD CELL COUNT (BEAKER) 5.7 K/ L 4.0-10.0 (test code = 775) RED BLOOD CELL COUNT (BEAKER) 3.41 M/ L 4.20-5.80 L (test code = 761) HEMOGLOBIN (BEAKER) (test code = 9.1 GM/DL 13.0-16.8 L 410) HEMATOCRIT (BEAKER) (test code = 28.9 % 36.0-50.0 L 411) MEAN CORPUSCULAR VOLUME (BEAKER) 85 fL 82-99 (test code = 753) MEAN CORPUSCULAR HEMOGLOBIN 26.7 pg 27.0-33.0 L (BEAKER) (test code = 751) MEAN CORPUSCULAR HEMOGLOBIN CONC 31.5 GM/DL 32.0-36.0 L (BEAKER) (test code = 752) RED CELL DISTRIBUTION WIDTH 14.2 % 12.0-15.0 (BEAKER) (test code = 412) PLATELET COUNT (BEAKER) (test 237 K/CU MM 150-430 code = 756) MEAN PLATELET VOLUME (BEAKER) 10.2 fL 6.0-11.5 (test code = 754) NUCLEATED RED BLOOD CELLS 0 /100 WBC 0-0 (BEAKER) (test code = 413) NEUTROPHILS RELATIVE PERCENT 65 % (BEAKER) (test code = 429) LYMPHOCYTES RELATIVE PERCENT 24 % (BEAKER) (test code = 430) MONOCYTES RELATIVE PERCENT 8 % (BEAKER) (test code = 431) EOSINOPHILS RELATIVE PERCENT 3 % (BEAKER) (test code = 432) BASOPHILS RELATIVE PERCENT 1 % (BEAKER) (test code = 437) NEUTROPHILS ABSOLUTE COUNT 3.69 K/ L 1.80-8.00 (BEAKER) (test code = 670) LYMPHOCYTES ABSOLUTE COUNT 1.34 K/ L 1.48-4.50 L (BEAKER) (test code = 414) MONOCYTES ABSOLUTE COUNT (BEAKER) 0.46 K/ L 0.00-1.30 (test code = 415) EOSINOPHILS ABSOLUTE COUNT 0.16 K/ L 0.00-0.50 (BEAKER) (test code = 416) BASOPHILS ABSOLUTE COUNT (BEAKER) 0.03 K/ L 0.00-0.20 (test code = 417) IMMATURE GRANULOCYTES-RELATIVE 0.20 % 0.00-0.00 H PERCENT (BEAKER) (test code = 2801) POCT-GLUCOSE [id number] 00:47:01 Test Item Value Reference Range Interpretation Comments POC-GLUCOSE METER 136 mg/dL 70-110 H : TESTED A T [facility] [address] (BEAKER) (test code [address], = 1538) [facility] 77 478: Marine Propulsion Technician/Techni jorge ID = [id number] for Verna Chicas [facility] [id number] 21:06:16 Test Item Value Reference Range Interpretation Comments TROPONIN I (BEAKER) (test code = 0.04 ng/mL 0.00-0.15 397) Troponin I (TnI) levels must be interpreted in the context of the presenting symptoms and the clinical findings. Elevated TnI levels indicate myocardial damage, but are not specific for ischemic heart disease. Elevated TnI levels are seen in patients with other cardiac conditions (including myocarditis and congestive heart failure), and slight TnI elevations occur in patients with other conditions, including sepsis, renal failure, acidosis, acute neurological disease, and persistent tachyarrhythmia.Marine Propulsion Technician ID - [id number] 18:05:49 Test Item Value Reference Range Interpretation Comments POC-GLUCOSE METER 166 mg/dL 70-110 H : TESTED A T [facility] [address] (BEAKER) (test code [address], = 1538) [place] [address] 478: Marine Propulsion Technician/Techni jorge ID = [id number] for Jaqueline Conklin POCT-GLUCOSE [id number] 18:05:48 Test Item Value Reference Range Interpretation Comments POC-GLUCOSE METER 101 mg/dL 70-110 : TESTED A T [facility] [address] (BEAKER) (test code [address], = 1538) [place] [address] 478: Marine Propulsion Technician/Techni jorge ID = [id number] for Jaqueline Conklin 2D Echo W/Doppler(CW/PW/Color)2022-10-31 15:20:57Ejection FractionSLEH ECHO [facility]Do[facility](CW/PW/Color)2022-10-31 15:20:57Ejection FractionSLE ECHO [facility] 1 [facility], NON [id number] 15:08:00Reason for exam:->sobShould this be performed at the bedside?->Yes [facility] : 1950 Sex: MFINAL REPORT RAD, CHEST, 1 VIEW, NON DEPT TECHNIQUE: Frontal view(s) of the chest. INDICATION: sob COMPARISON: None FINDINGS/IMPRESSION: Lines/Tubes: None Lungs/pleura: Patchy airspace opacities bilaterally. Small right pleural effusion. No pneumothorax. Heart and Mediastinum: Unchanged. Soft Tissues and Bones: Unchanged. Signed: Mikki Nguyen Verified Date/Time: 10/31/2022 15:08:58 Reading Location: [facility] Radiology Reading Room [facility] [id number] 14:34:54 Test Item Value Reference Range Interpretation Comments TROPONIN I (BEAKER) (test code = 0.05 ng/mL 0.00-0.15 397) Troponin I (TnI) levels must be interpreted in the context of the presenting symptoms and the clinical findings. Elevated TnI levels indicate myocardial damage, but are not specific for ischemic heart disease. Elevated TnI levels are seen in patients with other cardiac conditions (including myocarditis and congestive heart failure), and slight TnI elevations occur in patients with other conditions, including sepsis, renal failure, acidosis, acute neurological disease, and persistent tachyarrhythmia.Marine Propulsion Technician ID - [id number] I 2020-12-25 19:09:05 Test Item Value Reference Range Interpretation Comments TROPONIN I (test 0.030 ng/mL See_Comment [Automated code = 8427388470) message] The system which generated this result [...] ? Lab Interpretation Normal (test code = 43156-4) [facility] [id number] 17:09:211. ?No acute intraabdominal pathology. 2. Minimal haziness of the upper abdominal mesenteric fat is nonspecific,but may be related to mild mesenteric panniculitis. 3. Hepatomegaly. There is a subcentimeter enhancing focus at the dome ofthe liver, possibly a flash filling hemangioma. This is incompletel ycharacterized on this examination. RL: [id number]: [id number] End of Report EXAM: CT ABDOMEN PELVIS [...] images were obtained. CT performed according to ALAanimas surgical hospitalciples.TECHNICAL QUALITY: AdequateCT OF THE ABDOMEN WITH IV [...] This is incompletelycharacterized on this examination.RL: 6214AFC: [id number] Report [facility] 1 [id number] 14:50:12 No radiographic evidence of acute cardiopulmonary [...] reviewed this study and agree with theabove report.[facility] Centerbrielle [id number] 14:05:24 Test Item Value Reference Range Interpretation Comments TROPONIN I (test 0.033 ng/mL See_Comment [Automated code = 4762933219) message] The system which generated this result [...] ? Lab Interpretation Normal (test code = 86342-7) [facility] HospitalBasi Metabolic Panel (NA, K, CL, CO2, GLUCOSE, BUN, CREATININE, CA)2020-12-25 13:54:05 Test Item Value Reference Range Interpretation Comments NA (test code = 136 mmol/L 135-145 3328087618) K (test code = 3.8 mmol/L 3.5-5.0 0205837503) CL (test code = 104 mmol/L 98-108 8965968996) CO2 TOTAL (test code = 20 mmol/L 23-31 L 0860747282) AGAP (test code = 2-16 5763477723) BUN (test code = 28 mg/dL 7-23 H 9209271771) GLUCOSE (test code = 371 mg/dL 70-110 H 8706245863) CREATININE (test code = 1.21 mg/dL 0.60-1.25 6587228271) CALCIUM (test code = 8.5 mg/dL 8.6-10.6 L 4281943525) eGFR (test code = mL/min/1.73m2 1628132966) MAXWELL (test code = MAXWELL) Association of [...] tests). Lab Interpretation Abnormal (test code = 01150-9) [facility] Hospital[facility] (ALB, T.PRO, BILI T, BU/BC, ALT, AST, ALK PHOS)2020-12-25 13:54:05 Test Item Value Reference Range Interpretation Comments TOTAL BILI (test code = 7307050359) 0.5 mg/dL 0.1-1.1 BILI UNCON (test code = 1743524400) 0.4 mg/dL 0.1-1.1 BILI CONJ (test code = 4916085242) 0.0 mg/dL 0.0-0.3 T PROTEIN (test code = 2061220356) 6.9 g/dL 6.3-8.2 ALBUMIN (test code = 5063199209) 4.2 g/dL 3.5-5.0 ALK PHOS (test code = 3631396343) 153 U/L 34-122 H ALTv (test code = 1742-6) 15 U/L 5-50 AST(SGOT) (test code = 1197588479) 19 U/L 13-40 Lab Interpretation (test code = Abnormal 86721-8) [facility] HospitalLipase [id number] 13:54:05 Test Item Value Reference Range Interpretation Comments LIPASE (test code = 3659712318) 100 U/L 0-220 Lab Interpretation (test code = Normal 27296-0) [facility] HospitalCOVID-19 (ID NOW RAPID TESTING)2020-12-25 13:52:05 Test Item Value Reference Range Interpretation Comments SARS-CoV-2 Rapid ID NOW Not Detected Not Detected (test code = 38433-5) MAXWELL (test code = MAXWELL) ID NOW COVID-19 Assay is an isothermal nucleic acid amplification test intended for the qualitative detection of nucleic acid from SARS-CoV-2 viral RNA in nasopharyngeal (WELL SHO[employer]ER) specimens. It is used under Emergency Use [...] indicated. Lab Interpretation Normal (test code = 00233-3) [facility] HospitalCB with [id number] 13:36:42 Test Item Value Reference Range Interpretation Comments WBC (test code = See_Comment [Automated 4993-2) message] The sy stem which generated this [...] (test code = 37.2 fL 38.5-51.6 L 51543-4) RDW-CV (test code = 12.3 % 12.1-15.4 788-0) PLT (test code = See_Comment [Automated 777-3) message] The sy stem which generated this result transmitted reference range : 150 - 328 10*3/ ?L. The reference r marissa was not used to interpret this result as normal/abnormal . MPV (test code = 11.0 fL 9.8-13.0 11882-6) NRBC/100 WBC (test See_Comment [Automat ed code = 6395486722) message] The system which generated this result transmitted reference range : 0.0 - 10.0 /100 WBCs. The refer ence range was not u sed to interpret th is result as normal/abnormal . NRBC x10^3 (test code <0.01 See_Comment [Auto mated = 2384278874) message] The s ystem which generated this result transmitted reference range : 10*3/?L. The reference range was not used to interpret this result as normal/abnormal . GRAN MAT (NEUT) % 66.6 % (test code = 770-8) IMM GRAN % (test code 0.40 % = 8619741552) LYMPH % (test code = 24.9 % 736-9) MONO % (test code = 6.9 % 5905-5) EOS % (test code = 0.9 % 713-8) BASO % (test code = 0.3 % 706-2) GRAN MAT x10^3(ANC) 4.55 10*3/uL 1.99-6.95 (test code = 6897271999) IMM GRAN x10^3 (test 0.03 10*3/uL 0.00-0.06 code = 7663774967) LYMPH x10^3 (test code 1.70 10*3/uL 1.09-3.23 = 731-0) MONO x10^3 (test code 0.47 10*3/uL 0.36-1.02 = 742-7) EOS x10^3 (test code = 0.06 10*3/uL 0.06-0.53 711-2) BASO x10^3 (test code <0.03 0.01-0.09 = 704-7) Lab Interpretation Abnormal (test code = 56230-2) [facility]) 2020-03-28 14:16:00 Test Item Value Reference Range Interpretation Comments SARS-COV2/RT-PCR (test code Positive Not Detected, Negative, AA = 6880105) See external report for linked test SARS-COV-2 PERFORMING LAB [facility] (test code = 7990477) Results are for the detection of SARS-CoV-2 [...] copies/mL.This SARS CoV-2 test is a rapid, snjg-rifaZZ-FOT test intended for the qualitative detection of [...] 564(g) of the Act.Fact Sheet for Healthcare Providers:https://www.Propertygate/ Documents/Xpert%20Xpress%20SARS%20CoV-2/Fact%20Sheets/302-3802%17WVBD-CIX-1%20HE ALTHCARE%20PROVIDERS%20FACT%20SHEET.pdfFact Sheet for Healthcare Patients:https://www.Propertygate/Documents/Xpert%20Xpress %20SARS%20CoV-2/Fact%20Sheets/302-3801%76XORM-MGV-3%20PATIENT%20FACT%20SHEET.pdf Performing Laboratory:[address] [address]SUHB-KBHSKLP [id number] 14:00:00 Test Item Value Reference Range Interpretation Comments POC-GLUCOSE METER 172 mg/dL 70-110 H TESTED AT [address] (test code = [facility] Mati [facility] 1538) [address] POCT-GLUCOSE [id number] 08:19:00 Test Item Value Reference Range Interpretation Comments POC-GLUCOSE METER 145 mg/dL 70-110 H TESTED AT [address] (test code = [facility] Mati [facility] 1538) [address] POCT-GLUCOSE [id number] 21:45:00 Test Item Value Reference Range Interpretation Comments POC-GLUCOSE METER 260 mg/dL 70-110 H TESTED AT [address]) (test code = [facility] Mati [facility] 1538) [address] POCT-GLUCOSE [id number] 16:53:00 Test Item Value Reference Range Interpretation Comments POC-GLUCOSE METER 149 mg/dL 70-110 H TESTED AT [place] [address] ([facility]) (test code = [facility] 1538) [address] POCT-GLUCOSE [id number] 12:19:00 Test Item Value Reference Range Interpretation Comments POC-GLUCOSE METER 141 mg/dL 70-110 H TESTED AT [place] [address] ([facility]) (test code = [facility] 1538) [address] POCT-GLUCOSE [id number] 07:38:00 Test Item Value Reference Range Interpretation Comments POC-GLUCOSE METER 127 mg/dL 70-110 H TESTED AT [facility] 6720 (BEAKER) (test code = [place] 1538) [address] BASIC METABOLIC [id number] 04:59:00 Test Item Value Reference Range Interpretation [...] PATIEN TS. CBC W/PLT COUNT & AUTO [id number] 04:28:00 Test Item Value Reference Range Interpretation [...] PERCENT (BEAKER) (test code = 2801) POCT-GLUCOSE [id number] 22:48:00 Test Item Value Reference Range Interpretation Comments POC-GLUCOSE METER 133 mg/dL 70-110 H [facility] [place] [address] [facility] (test code = [place] 1538) [address] POCT-GLUCOSE [id number] 18:05:00 Test Item Value Reference Range Interpretation Comments POC-GLUCOSE METER 167 mg/dL 70-110 H TESTED [facility] [place] [address] [facility] (test code = [place] 1538) [address] POCT-GLUCOSE [id number] 11:51:00 Test Item Value Reference Range Interpretation Comments POC-GLUCOSE METER 142 mg/dL 70-110 H TESTED AT [facility] 6720 (BEAKER) (test code = ONI[place] [facility] 1538) [address] POCT-GLUCOSE [id number] 07:48:00 Test Item Value Reference Range Interpretation Comments POC-GLUCOSE METER 138 mg/dL 70-110 H TESTED AT [facility] 6720 (BEAKER) (test code = [facility] Mati [facility] 1538) [address] BASIC METABOLIC [id number] 06:56:00 Test Item Value Reference Range Interpretation [...] APPLICABLE FOR DIALYSIS PATIEN TS. BASIC METABOLIC [id number] 06:50:00 Test Item Value Reference Range Interpretation [...] PATIEN TS. CBC W/PLT COUNT & AUTO [id number] 06:34:00 Test Item Value Reference Range Interpretation [...] = 2801) CBC W/PLT COUNT & AUTO [id number] 06:33:00 Test Item Value Reference Range Interpretation [...] ABSOLUTE COUNT 8.24 K/ L 1.78-5.38 H ([facility]) (test code = 670) LYMPHOCYTES ABSOLUTE COUNT 2.20 K/ L 1.32-3.57 (AKER) (test code = 414) MONOCYTES ABSOLUTE COUNT (BEAKER) 0.86 K/ L 0.30-0.82 H (test code = 415) EOSINOPHILS ABSOLUTE COUNT 0.02 K/ L 0.04-0.54 L (AKER) (test code = 416) BASOPHILS ABSOLUTE COUNT (AKER) 0.02 K/ L 0.01-0.08 (test code = 417) IMMATURE GRANULOCYTES-RELATIVE 0 % 0-1 PERCENT ([facility]) (test code = 2801) POCT-GLUCOSE [id number] 21:02:00 Test Item Value Reference Range Interpretation Comments POC-GLUCOSE METER 232 mg/dL 70-110 H TESTED AT [place] [address] ([facility]) ([facility] 1538) [address] POCT-GLUCOSE [id number] 17:47:00 Test Item Value Reference Range Interpretation Comments POC-GLUCOSE METER 278 mg/dL 70-110 H TESTED AT [place] [address] ([facility]) (test [facility] = [facility] 1538) [address] POCT-GLUCOSE [id number] 13:08:00 Test Item Value Reference Range Interpretation Comments POC-GLUCOSE METER 307 mg/dL 70-110 H TESTED AT [place] [address] ([facility]) (test code = [facility] 1538) [address] POCT-GLUCOSE [id number] 09:05:00 Test Item Value Reference Range Interpretation Comments POC-GLUCOSE METER 274 mg/dL 70-110 H TESTED AT [place] [address] ([facility]) (test code = [facility] Mati [facility] 1538) [address]"
[2023-06-21 20:50] LABS: Urine Bacteria None Seen /HPF (<20); Urine Bilirubin NEGATIVE (Negative); Urine Blood 1+ (Negative); Urine Clarity Clear (Clear); Urine Color Colorless (Yellow); Urine Glucose 1+ (Negative); Urine Mucus Slight /HPF (None Seen); Urine Protein 2+ (Negative); Urine RBC <5 /HPF (None Seen); Urine Urobilinogen Normal (Normal); Urine pH 5.5 (5.0-7.0)
[2023-06-21 20:52] LABS: Absolute Lymphocytes (CBC) 1.3 K/uL (0.7-4.9); Hematocrit 29.9 % (39.6-49.0); Lymphocytes % 20.3 % (15.3-44.8); MCV 85.9 fL (80-100); MPV 8.3 fL (7.6-11.3); Platelets 179 thou/uL (152-406); RBC Red Blood Cell Count 3.48 M/uL (4.33-5.43)
[2023-06-21 21:04] LABS: Albumin 3.1 g/dL (3.4-5.0); Bilirubin Total 0.4 mg/dL (0.2-1.0); Potassium 3.5 mEq/L (3.5-5.1)
--- NOTE | 2023-06-21 22:32 | RAD REPORT ---
EXAM DESCRIPTION: CT - Stone Protocol - 06/21/2023 10:16 pm CLINICAL HISTORY: Abdominal pain. COMPARISON: October 2022 TECHNIQUE: Computed axial tomography of the abdomen pelvis was obtained without oral or IV contrast. Lack of IV and oral contrast limits evaluation of solid organs, appendix, bowel, and vessels. Pedraza l reformatted images were obtained and reviewed. All CT scans are performed using dose optimization technique as appropriate and may include automated exposure control or mA/KV adjustment according to patient size. FINDINGS: A renal calculus is not seen. An ureteral calculus is not noted. A bladder calculus is not present. No hydronephrosis. Cholecystectomy Mild tree-in-bud opacities right middle and right lower lobes The liver, spleen, pancreas and adrenals appear grossly normal There is no evidence of diverticulitis. Moderate bilateral inguinal hernias contain fat. The appendix is borderline enlarged Spondylosis involves lumbar spine resulting in spinal stenosis IMPRESSION: Negative for a genitourinary calculus Mild tree-in-bud opacities right middle and right lower lobes may indicate an atypical infection Borderline enlargement of the appendix may be a normal finding for the patient. An early appendicitis can also have this appearance and should correlated clinically
--- NOTE | 2023-06-21 23:21 | EDPHYS ---
Physician Documentation [facility] Name: Sylvain Veronica Age: 72 yrs Sex: Male : 1950 Arrival Date: 06/21/2023 Time: 18:55 Bed 16 Private MD: Austen Mott T ED Physician Leonel Almazan HPI: 06/21 19:40 This 72 yrs old Male presents to ER via Ambulatory with complaints of cp Abdominal Pain, Diarrhea. 19:40 The patient presents with abdominal pain mid abdomen. Onset: The symptoms/episode cp began/occurred 2 day(s) ago. 19:40 The symptoms do not radiate. Associated signs and symptoms: Pertinent positives: cp decreased urine output and urinary frequency, Pertinent negatives: blood in stools, chest pain, constipation, diarrhea, dysuria, fever, testicular pain, vomiting. 19:40 The symptoms are described as waxing/waning. Severity of pain: in the emergency cp department the pain has improved moderately. Historical: - Allergies: 19:33 No Known Allergies; pf1 - PMHx: 19:33 Congestive heart failure; Systolic; Diabetes - IDDM; Hypertensive disorder; kidney pf1 disease; CKD 3; - PSHx: 19:33 cardiac stents; Cholecystectomy; pf1 - Immunization history:: Adult Immunizations up to date, Client reports receiving the 2nd dose of the Covid vaccine, Last tetanus immunization: > 10 years ago Flu vaccine is not up to date. - Social history:: Smoking status: Patient denies any tobacco usage or history of. Patient uses alcohol, but reports only rare drinking. Patient/guardian denies using street drugs. ROS: 19:45 Constitutional: Negative for body aches, chills, fever, poor PO intake, cp 19:45 Abdomen/GI: Positive for abdominal pain, cp 19:45 : Positive for urinary frequency, small amounts, 19:45 Cardiovascular: Negative for chest pain, edema, palpitations, cp 19:45 Eyes: Negative for injury, pain, redness, and discharge, cp 19:45 ENT: Negative for drainage from ear(s), ear pain, sore throat, difficulty swallowing, difficulty handling secretions, 19:45 Respiratory: Negative for cough, shortness of breath, wheezing, 19:45 Back: Negative for pain at rest, pain with movement, 19:45 Neuro: Negative for altered mental status, headache, syncope, weakness, 19:45 All other systems are negative, Exam: 19:50 Constitutional: The patient appears in no acute distress, alert, awake, cp non-diaphoretic, non-toxic, well developed, well nourished, 19:50 Head/Face: Normocephalic, atraumatic. cp 19:50 Eyes: Periorbital structures: appear normal, Conjunctiva: normal, no exudate, no injection, Sclera: no appreciated abnormality, Lids and lashes: appear normal, bilaterally, 19:50 ENT: External ear(s): are unremarkable, Nose: is normal, Mouth: Lips: moist, Oral mucosa: pink and intact, moist, Posterior pharynx: Airway: no evidence of obstruction, patent, 19:50 Chest/axilla: Inspection: normal, Palpation: is normal, no crepitus, no tenderness, 19:50 Cardiovascular: Rate: normal, Rhythm: regular, Edema: is not appreciated, JVD: is not appreciated, 19:50 Respiratory: the patient does not display signs of respiratory distress, Respirations: normal, no use of accessory muscles, no retractions, labored breathing, is not present, Breath sounds: are clear throughout, no decreased breath sounds, no stridor, no wheezing, 19:50 Abdomen/GI: Inspection: distension, that is mild, Bowel sounds: active, all quadrants, Palpation: soft, in all quadrants, mild abdominal tenderness, in the umbilical area, right lower quadrant and left lower quadrant, rebound tenderness, is not appreciated, involuntary guarding, is not appreciated, 19:50 Back: pain, is absent, ROM is normal, 19:50 Skin: cellulitis, is not appreciated, no rash present. 19:50 Neuro: Orientation: to person, place \T\ time. Mentation: is normal, Motor: moves all fours, strength is normal, Sensation: is normal, 06/22 01:12 ECG was reviewed by the Attending Physician. cp Vital Signs: 06/21 19:28 BP 162 / 80; Pulse 84; Resp 16; Temp 98.8; Pulse Ox 99% on R/A; Weight 88.45 kg; Height pf1 5 ft. 10 in. ; Pain 1/10; 20:30 BP 130 / 66; Pulse 75; Resp 18 S; Pulse Ox 100% on R/A; ha1 21:15 BP 134 / 71; Pulse 75; Resp 17 S; Pulse Ox 99% on R/A; ha1 22:00 BP 147 / 93; Pulse 79; Resp 17; Pulse Ox 99% on R/A; ha1 19:28 Body Mass Index 27.98 (88.45 kg, 177.8 cm) pf1 19:28 Pain Scale: Adult pf1 MDM: 19:37 Patient medically screened. cp 22:00 Differential diagnosis: appendicitis, cholecystitis, Cholelithiasis, diverticulitis, cp gastritis, non-specific abd pain, Pyelonephritis, Testicular Torsion, Ureterolithiasis, urinary tract infection. 23:20 Data reviewed: vital signs, nurses notes, lab test result(s), radiologic studies, CT cp scan. 23:20 Management of patient was discussed with the following: Winch Derrick Operator: DR Guajardo who cp recommends admission to hospitalist services, administer Zosyn antibiotic. 06/21 19:54 Order name: CBC with Diff; Complete Time: 21:18 cp 06/21 21:18 Interpretation: Normal except: RBC 3.48; HGB 10.6; HCT 29.9. cp 06/21 19:54 Order name: CMP; Complete Time: 21:18 cp 06/21 21:18 Interpretation: Normal except: CL 111; GLUC 185; BUN 31; CRE 2.56; GFR 26; CA 7.2; ALB cp 3.1; GLOB 3.9; A/G 0.8. 06/21 19:54 Order name: Lipase; Complete Time: 21:18 cp 06/21 19:54 Order name: Urinalysis w/ reflexes; Complete Time: 21:18 cp 06/21 22:39 Interpretation: Normal except: UGLUC 1+; UBLD 1+; UPROT 2+. cp 06/21 19:54 Order name: Magnesium; Complete Time: 21:18 cp 06/21 23:20 Order name: Lactate w/ 2H reflex if indic.; Complete Time: 05:45 cp 06/21 23:20 Order name: Blood Culture Adult (2) cp 06/22 00:05 Order name: CBC with Automated Diff EDMS 06/22 00:05 Order name: CBC with Automated Diff; Complete Time: 05:45 EDMS 06/22 00:05 Order name: Comprehensive Metabolic Panel EDMS 06/22 00:05 Order name: Comprehensive Metabolic Panel; Complete Time: 05:45 EDMS 06/22 07:35 Order name: Glucose, Ancillary Testing EDNY 06/21 21:57 Order name: CT Stone Protocol; Complete Time: 22:38 06/21 23:20 Order name: XRAY Chest (1 view) 06/21 23:20 Order name: EKG; Complete Time: 23:21 cp 06/21 19:54 Order name: IV Saline Lock; Complete Time: 20:44 cp 06/21 19:54 Order name: Labs collected and sent; Complete Time: 20:44 06/21 23:20 Order name: EKG - Nurse/Tech; Complete Time: 01:23 cp EC/27 01:12 Rate is 82 beats/min. Rhythm is regular. WI interval is normal. QRS interval is normal. cp QT interval is normal. T waves are Inverted in lead aVR. Interpreted by me. Reviewed by me. Administered Medications: No medications were administered Disposition Summary: 06/21/23 23:21 Hospitalization Ordered Notes: Hospitalization Status: Inpatient Admission cp Provider: George Gonzalez cp Condition: Stable cp Problem: new cp Symptoms: have improved cp Bed/Room Type: Standard cp Location: [facility] ER HOLD(06/22/23 00:23) Room Assignment: ERHOLD-(06/22/23 00:23) cg Diagnosis - Abdominal pain, unspecified cp Forms: - Medication Reconciliation Form cp - SBAR form cp - Leadership Thank You Letter cp Signatures: Dispatcher [employer] [facility] Jesus Arias, FIELD PROFESSIONAL-C FIELD PROFESSIONAL-Cla1 Leonel Craig PA PA cp Ameena Rodriguez, RN RN cg Beatrice Holloway, RN RN pf1 Corrections: (The following items were deleted from the chart) 06/21 22:01 20:43 Abdomen Pelvis W Con+CT.RAD.BRZ ordered. [facility] EDNY 06/22 00:23 06/21 23:21 Telemetry/MedSurg (Inpatient) cp 06/22 00:23 06/21 23:21 cp cg 06/22 01:26 06/21 19:54 Bladder Scanner ordered. cp ha1
--- NOTE | 2023-06-21 23:21 | ER ---
Nurse's Notes [facility] Name: Sylvain Veronica Age: 72 yrs Sex: Male : 1950 Arrival Date: 06/21/2023 Time: 18:55 Bed 16 Private MD: Austen Mott T Diagnosis: Abdominal pain, unspecified Presentation: 06/21 19:28 Chief complaint: Patient states: lower abdominal pain of 1 with diarrhea x 6 episodes pf1 today, nonproductive cough and dry mouth sensation,onset Sunday. Coronavirus screen: Vaccine status: Patient reports receiving the 2nd dose of the covid vaccine. Client denies travel out of the [place] in the last 14 days. Client presents with at least one sign or symptom that may indicate coronavirus-19. Ebola Screen: Patient negative for fever greater than or equal to 101.5 degrees Fahrenheit, and additional compatible Ebola Virus Disease symptoms. Initial Sepsis Screen: Does the patient meet any 2 criteria? No. Patient's initial sepsis screen is negative. Does the patient have a suspected source of infection? No. Patient's initial sepsis screen is negative. Risk Assessment: Do you want to hurt yourself or someone else? Patient reports no desire to harm self or others. 19:28 Method Of Arrival: Ambulatory pf1 19:28 Acuity: JACKIE 3 pf1 Historical: - Allergies: 19:33 No Known Allergies; pf1 - PMHx: 19:33 Congestive heart failure; Systolic; Diabetes - IDDM; Hypertensive disorder; kidney pf1 disease; CKD 3; - PSHx: 19:33 cardiac stents; Cholecystectomy; pf1 - Immunization history:: Adult Immunizations up to date, Client reports receiving the 2nd dose of the Covid vaccine, Last tetanus immunization: > 10 years ago Flu vaccine is not up to date. - Social history:: Smoking status: Patient denies any tobacco usage or history of. Patient uses alcohol, but reports only rare drinking. Patient/guardian denies using street drugs. Screenin:17 [facility] ED Fall Risk Assessment (Adult) History of falling in the last 3 months, ha1 including since admission No falls in past 3 months (0 pts) Confusion or Disorientation No (0 pts) Intoxicated or Sedated No (0 pts) Impaired Gait No (0 pts) Mobility Assist Device Used No (0 pt) Altered Elimination No (0 pt) Score/Fall Risk Level 0 - 2 = Low Risk Oriented to surroundings, Maintained a safe environment, Hourly rounding (assess needs \\T\\ fall precautionary measures) done. Abuse screen: Denies threats or abuse. Denies injuries from another. Nutritional screening: No deficits noted. Tuberculosis screening: No symptoms or risk factors identified. Assessment: 20:00 General: Appears comfortable, Behavior is calm, cooperative. Pain: Complains of pain in ha1 abdomen Pain does not radiate. Pain currently is 5 out of 10 on a pain scale. Neuro: Level of Consciousness is awake, alert, obeys commands, Oriented to person, place, time, situation. Cardiovascular: Patient's skin is warm and dry. Respiratory: Airway is patent Respiratory effort is even, unlabored, Respiratory pattern is regular, symmetrical. GI: Abdomen is round non-distended, Bowel sounds present X 4 quads. Abd is soft and non tender Reports upper abdominal pain, diarrhea. Derm: Skin is pink, warm \\T\\ dry. Musculoskeletal: Circulation, motion, and sensation intact. Range of motion: intact in all extremities. 20:00 : Reports pt. states" my urine comes out slow, but I do not have any problem ha1 urinating" denies pain. 21:00 Reassessment: Patient and/or family updated on plan of care and expected duration. Pain ha1 level reassessed. Patient is alert, oriented x 3, equal unlabored respirations, skin warm/dry/pink. 21:00 Reassessment: unable to find the bladder scanner in ER. Called second floor to ask for ha1 bladder scanner. CHUCK Angel states " I will look for it". 21:45 Reassessment: called greenhouse grower Ameena to ask for bladder scanner she states" I ha1 will look for it ". 22:00 Reassessment: Patient and/or family updated on plan of care and expected duration. Pain ha1 level reassessed. Patient is alert, oriented x 3, equal unlabored respirations, skin warm/dry/pink. 23:00 Reassessment: Patient and/or family updated on plan of care and expected duration. Pain ha1 level reassessed. Patient is alert, oriented x 3, equal unlabored respirations, skin warm/dry/pink. Vital Signs: 19:28 BP 162 / 80; Pulse 84; Resp 16; Temp 98.8; Pulse Ox 99% on R/A; Weight 88.45 kg; Height pf1 5 ft. 10 in. ; Pain 09/05; 20:30 BP 130 / 66; Pulse 75; Resp 18 S; Pulse Ox 100% on R/A; ha1 21:15 BP 134 / 71; Pulse 75; Resp 17 S; Pulse Ox 99% on R/A; ha1 22:00 BP 147 / 93; Pulse 79; Resp 17; Pulse Ox 99% on R/A; ha1 19:28 Body Mass Index 27.98 (88.45 kg, 177.8 cm) pf1 19:28 Pain Scale: Adult pf1 ED Course: 18:57 Patient arrived in ED. mr 18:58 Austen Mott MD is Private Physician. mr 19:09 [facility]. cp 19:09 Leonel Almazan MD is Attending Physician. cp 19:33 Triage completed. pf1 20:00 Arm band placed on right wrist. ha1 20:00 Patient has correct armband on for positive identification. Bed in low position. Call ha1 light in reach. Side rails up X 1. Adult w/ patient. 20:05 Inserted saline lock: 22 gauge in right antecubital area, using aseptic technique. ha1 Blood collected. 20:17 Maddie Ortega, CHUCK is Primary Nurse. ha1 20:44 CBC with Diff Sent. ha1 20:44 CMP Sent. ha1 20:44 Lipase Sent. ha1 20:44 Urinalysis w/ reflexes Sent. ha1 22:17 CT Stone Protocol In Process Unspecified. EDMS 23:20 George Gonzalez MD is Hospitalizing Provider. cp 23:39 XRAY Chest (1 view) In Process Unspecified. EDMS 06/22 06:53 No provider procedures requiring assistance completed. Patient admitted, IV remains in ha1 place. 06:54 Blood Culture Adult (2) Sent. ha1 Administered Medications: No medications were administered Medication: 06/21 21:20 VIS not applicable for this client. ha1 Outcome: 23:21 Decision to Hospitalize by Provider. cp 06/22 01:00 Admitted to ER Hold. Please see [facility] for further documentation. ha1 08:27 Admitted to OR accompanied by nurse, via wheelchair, with chart, Report called to zuleika Cortés RN 08:27 Condition: stable 08:27 Patient left the ED. zuleika Signatures: Dispatcher [employer] EDMS Verna Lizama, Reg Reg mr Leonel Craig PA PA cp Ayala, Heidy, RN RN ha1 Xuan Calhoun RN RN [id number] Beatrice Holloway RN RN pf1 Corrections: (The following items were deleted from the chart) 06/21 22:32 20:00 GI: Abdomen is round non-distended, Bowel sounds present X 4 quads. Abd is soft ha1 and non tender Reports upper abdominal pain, diarrhea, ha1
[2023-06-21] MEDS ORDERED: ONDANSETRON 4 MG (ODT) TAB PO PRN (23:57)
[2023-06-21] MEDS ORDERED: ACETAMINOPHEN 325 MG TABLET PO PRN (23:57)
[2023-06-22] MEDS ORDERED: MORPHINE 2 MG/ML SYR IV PRN (00:03)
[2023-06-22] MEDS: NA CHLORIDE 0.9% 1,000 ML IV SCH ×2 (00:10→09:45)
--- NOTE | 2023-06-22 00:14 | P.HP ---
Certification for Inpatient Patient admitted to: Observation With expected LOS: <2 Midnights Practitioner: I am a practitioner with admitting privileges, knowledge of patient current condition, hospital course, and medical plan of care. Services: Services provided to patient in accordance with Admission requirements found in Title 42 Section 412.3 of the Code of Federal Regulations Patient History Date of Service: 06/22/23 Reason for admission: Abdominal pain rule out appendicitis History of Present Illness: 72-year-old male patient with medical history significant for hypertension, diabetes type 2, hyperlipidemia, chronic kidney disease stage III who was evaluated for episode of abdominal pain. Patient reported abdominal pain in the umbilical region that did not radiate. No radiation down to the right groin or lower quadrant. He denies any episode of fever, chills, rigor, nausea, vomiting. Because of his complaint there was concern for possible intra- abdominal pathology so a CT of the abdomen/pelvis was done. This revealed an enlarged appendix with some mild changes compatible with possible early onset appendicitis. Patient was discussed with surgeon and recommendation was that the patient should be admitted for inpatient care with possibility of surgical intervention. Allergies No Known Allergies Allergy (Verified 08/23/20 20:31) Home Medications: ARIPiprazole [Aripiprazole] 10 mg PO BEDTIME 05/20/22 Furosemide [Lasix*] 40 mg PO DAILY #30 tab 05/20/22 carvediloL [Coreg*] 3.125 mg PO BID #60 tab 05/20/22 Atorvastatin Calcium [Lipitor] 40 mg PO BEDTIME #30 tab 07/22/22 - Past Medical/Surgical History Diabetic: Yes -: Diabetes mellitus type 2insulin-dependent -: Hypertension -: Chronic systolic CHF -: CAD -: CKD 3 -: Cholecystectomy -: 2 stents Psychosocial/ Personal History: Patient is . Lives at home. - Family History Father -: Diabetes Mother -: Diabetes - Social History Alcohol use: Yes CD- Drugs: No Caffeine use: Yes Review of Systems General: Unremarkable Eyes: Unremarkable ENT: Unremarkable Respiratory: Unremarkable Cardiovascular: Unremarkable Gastrointestinal: Abdominal Pain Genitourinary: Unremarkable Musculoskeletal: Unremarkable Integumentary: Unremarkable Neurological: Unremarkable Physical Examination - Physical Exam General: Alert, Oriented x3 HEENT: Atraumatic, Normocephalic Respiratory: Normal air movement Cardiovascular: Regular rate/rhythm, Normal S1 S2 Gastrointestinal: Soft and benign, Tenderness Musculoskeletal: No swelling Integumentary: No breakdown Neurological: Normal speech, Normal strength at 5/5 x4 extr - Studies Laboratory Data (last 24 hrs) 06/21/23 06/21/23 20:35 20:35 WBC 6.20 Hgb 10.6 L Hct 29.9 L Plt Count 179 Sodium 139 Potassium 3.5 BUN 31 H Creatinine 2.56 H Glucose 185 H Magnesium 2.0 Total Bilirubin 0.4 AST 15 ALT 24 Alkaline Phosphatase 108 Lipase 48 Assessment and Plan - Plan Abdominal pain: Patient is deemed to have early onset acute appendicitis based on imaging findings and clinical symptoms. We will keep n.p.o. Start IV fluid for hydration. We will start as needed morphine for pain control. Surgeon to evaluate for possible surgical intervention. Diabetes type 2: We will monitor blood sugar every 6 hours and start patient on sliding insulin once oral feeds resumed. Carb restricted diet to be commenced once oral feeds are resumed. Hypertension: We will monitor vital signs per unit protocol and continue with hypertensive medication CKD stage III/IV: Patient does have elevated creatinine of 2.34 and EGFR 26 on initial labs. We will obtain renal ultrasound and have nephrology evaluate for establishment of outpatient care for CKD. Prophylaxis: Heparin for DVT prophylaxis CODE STATUS: Full code Disposition: We will treat/work-up abdominal pain and discharge him when he is deemed clinically stable. Discharge Plan: Home - Advance Directives Does patient have a Living Will: Yes Does patient have a Durable POA for Healthcare: No
[2023-06-22] MEDS ORDERED: PIPER TAZO 2.25 GM in NA CHLORIDE 0.9% 50 ML IV ONE (01:00)
[2023-06-22] MEDS ORDERED: PIPER TAZO 2.25 GM in NA CHLORIDE 0.9% 50 ML IV SCH (01:00)
[2023-06-22] MEDS ORDERED: NA CHLORIDE 0.9% 1,000 ML ONE ×2 (01:12→08:46)
[2023-06-22] MEDS: HEPARIN 5000 UNIT/ML 1 ML VIAL SQ SCH ×3 (02:00→16:47)
[2023-06-22] MEDS ORDERED: NA CHLORIDE 0.9% 50 ML ONE (02:35)
[2023-06-22] MEDS ORDERED: PIPERACIL/TAZO 2.25 GM VIAL IV ONE (02:35)
[2023-06-22] MEDS ORDERED: HEPARIN 5000 UNIT/ML 1 ML VIAL ONE (02:35)
[2023-06-22 03:50] LABS: Absolute Lymphocytes (CBC) 1.4 K/uL (0.7-4.9); Hematocrit 28.7 % (39.6-49.0); Lymphocytes % 17.6 % (15.3-44.8); MCV 86.6 fL (80-100); MPV 8.2 fL (7.6-11.3); Platelets 163 thou/uL (152-406); RBC Red Blood Cell Count 3.31 M/uL (4.33-5.43)
[2023-06-22 03:57] VITALS: BMI 29.6
[2023-06-22 04:13] LABS: Albumin 2.9 g/dL (3.4-5.0); Bilirubin Total 0.5 mg/dL (0.2-1.0); Potassium 3.1 mEq/L (3.5-5.1); Protein, Total 6.4 g/dL (6.4-8.2)
[2023-06-22] MEDS: INSULIN REGULAR (HUMAN) 100 UNIT/ML SQ SCH ×3 (07:23→16:46)
[2023-06-22] MEDS ORDERED: PNEUMOCOCCAL VACCINE 0.5 ML IMVAC ONE (08:00)
[2023-06-22] MEDS ORDERED: INFLUENZA VACCINE (for 6+ mo) 0.5 ML DOSE IMVAC ONE (08:00)
[2023-06-22] MEDS: PIPER TAZO 3.375 GM in NA CHLORIDE 0.9% 100 ML IV SCH ×2 (09:00→17:00)
[2023-06-22] MEDS ORDERED: BUPIVACAINE 0.25% PF 30 ML VIAL ONE (09:06)
[2023-06-22] MEDS ORDERED: FENTANYL CITR 100 MCG/2 ML ONE ×2 (09:16→10:13)
[2023-06-22] MEDS ORDERED: ROCURONIUM 50 MG/5 ML VIAL IV ONE (09:16)
[2023-06-22] MEDS ORDERED: propofoL 200 MG/20 ML VIAL IV ONE (09:16)
[2023-06-22] MEDS ORDERED: LIDOCAINE 2% MPF 5 ML VIAL ONE (09:16)
[2023-06-22] MEDS ORDERED: dexAMETHasone 4 MG/ML VIAL ONE (09:51)
[2023-06-22] MEDS ORDERED: ONDANSETRON 4 MG/2 ML VIAL ONE (09:51)
[2023-06-22] MEDS ORDERED: EPHEDRINE SULF 50 MG/ML VIAL ONE (10:00)
--- NOTE | 2023-06-22 10:21 | P.OP ---
Preoperative diagnosis: Acute Appendicitis Postoperative diagnosis: Acute Appendicitis Primary procedure: Laparoscopic Appendectomy Anesthesia: GETA + Local Estimated blood loss: <5cc Specimen: Vermiform Appendix Findings: mild early appendicitis changes Complications: None Transferred to: Recovery Room Condition: Good
--- NOTE | 2023-06-22 10:25 | P.PN ---
Date of Service: 06/22/23 Subjective: ROS: 10 point ROS as noted above, otherwise negative Physical Exam: GEN: Alert, oriented, NAD HEENT: Normal conjunctiva, sclera anicteric CV: Regular rate and rhythm, no edema Pulm: Nonlabored respirations on room air ABD: Soft, mild-mod abdominal tenderness, Surgical dressing in place Neuro: Normal speech, normal affect vitals reviewed Problem List: Acute appendicitis, now s/p laparoscopic appendectomy (06/22) CKD 3/4 IDDM2 Chronic systolic CHF h/o CAD s/p 2 stents Hypertension Acute appendicitis, now s/p laparoscopic appendectomy (06/22) CT abdomen (06/21): early appendicitis, Mild tree-in-bud opacities right middle and right lower lobes may indicate an atypical infection. General surgery consulted s/p laparoscopic appendectomy with Dr. Guajardo (06/22) continue zosyn (06/22-) serial abdominal exams PRN pain medication CKD 3/4 Nephrology consulted continue IV fluids Monitor renal function IDDM2 Accu-Cheks, SSI. continue semglee; adjust as needed Chronic systolic CHF h/o CAD s/p 2 stents Hypertension Confirm home meds, restart as appropriate VTE: heparin sq Code: Full Dispo: Home Pending further improvement
[2023-06-22] MEDS ORDERED: SUGAMMADEX SODIUM 200 MG/2 ML VIAL IV ONE (10:30)
[2023-06-22 12:42] VITALS: O2SAT 96
--- NOTE | 2023-06-22 14:21 | P.DS ---
Admission Date: 06/22/23 Discharge Date: 06/22/23 Disposition: ROUTINE DISCHARGE Discharge Condition: GOOD Reason for Admission: Abdominal pain rule out appendicitis Consultations: General Surgery - Dr. Guajardo Brief History of Present Illness: 72yo M, PMH: hypertension, diabetes type 2, hyperlipidemia, chronic kidney disease stage III Patient presented to the ED with abdominal pain. Patient reported abdominal pain in the umbilical region that did not radiate. No radiation down to the right groin or lower quadrant. He denies any episode of fever, chills, rigor, nausea, vomiting. Because of his complaint there was concern for possible intra-abdominal pathology so a CT of the abdomen/pelvis was done. This revealed an enlarged appendix with some mild changes compatible with possible early onset appendicitis. Patient was discussed with surgeon and recommendation was that the patient should be admitted for inpatient care with possibility of surgical intervention. Hospital Course: Problem List: Acute appendicitis, now s/p laparoscopic appendectomy (06/22) CKD3 IDDM2 Chronic systolic CHF h/o CAD s/p 2 stents Hypertension Patient presented with abdominal pain. CT abdomen revealed an enlarged appendix with some mild changes compatible with possible early onset appendicitis. General surgery was consulted. Patient was taken to the OR for laparoscopic appendectomy with Dr. Guajardo on 06/22. Patient was monitored post operatively, tolerating diet without issues, ambulating and deemed stable for discharge home. Patient received zosyn while hospitalized and is to complete 3 days of augmentin on discharge. Medications Augmentin x3 days pain medication Follow up: PCP 3-[address] Guajardo in ~1 week Physical Exam: GEN: Alert, oriented, NAD HEENT: Normal conjunctiva, sclera anicteric CV: Regular rate and rhythm, no edema Pulm: Nonlabored respirations on room air ABD: Soft, mild abdominal tenderness, Surgical dressing in place Neuro: Normal speech, normal affect Vital Signs/Physical Exam: Temp Pulse Resp BP Pulse Ox 97.0 F 78 18 167/82 H 96 06/22/23 12:00 06/22/23 12:00 06/22/23 12:00 06/22/23 12:00 06/22/23 12:00 Laboratory Data at Discharge: WBC 8.00 thou/uL (4.3-10.9) 06/22/23 03:32 Hgb 10.0 g/dL (13.6-17.9) L 06/22/23 03:32 Hct 28.7 % (39.6-49.0) L 06/22/23 03:32 Plt Count 163 thou/uL (152-406) 06/22/23 03:32 Sodium 141 mEq/L (136-145) 06/22/23 03:32 Potassium 3.1 mEq/L (3.5-5.1) L 06/22/23 03:32 BUN 30 mg/dL (7-18) H 06/22/23 03:32 Creatinine 2.36 mg/dL (0.70-1.30) H 06/22/23 03:32 Glucose 96 mg/dL (74-106) 06/22/23 03:32 Magnesium 2.0 mg/dL (1.6-2.4) 06/21/23 20:35 Total Bilirubin 0.5 mg/dL (0.2-1.0) 06/22/23 03:32 AST 14 U/L (15-37) L 06/22/23 03:32 ALT 22 U/L (16-61) 06/22/23 03:32 Alkaline Phosphatase 92 U/L (45-117) 06/22/23 03:32 Lipase 48 U/L (13-75) 06/21/23 20:35 Home Medications: Amox/Clavulanate [Augmentin 875-125 Tab] 1 tab PO BID 3 Days #6 tab 06/22/23 Aspirin [Aspirin EC 81 MG] 1 tab PO DAILY 06/22/23 Metoprolol Tartrate 1 tab PO BID 06/22/23 Sacubitril/Valsartan [Entresto 24 mg-26 mg Tablet] 1 tab PO DAILY 06/22/23 New Medications: Amox/Clavulanate [Augmentin 875-125 Tab] 1 tab PO BID 3 Days #6 tab Physician Discharge Instructions: Patient presented with abdominal pain. CT abdomen revealed an enlarged appendix with some mild changes compatible with possible early onset appendicitis. General surgery was consulted. Patient was taken to the OR for laparoscopic appendectomy with Dr. Guajardo on 06/22. Patient was monitored post operatively, tolerating diet without issues, ambulating and deemed stable for discharge home. Patient received zosyn while hospitalized and is to complete 3 days of augmentin on discharge. Medications Augmentin pain medication sent by Dr. Guajardo Follow up: PCP 3-[address] Guajardo in ~1 week Diet: Regular Activity: No lifting more than 10 lbs Followup: Austen Mott MD [Primary Care Provider] - (call to schedule an appointment in 3-5 days) Kehinde Guajardo MD [ACTIVE - CAN ADMIT] - 1-2 Weeks (call to schedule an appointment) Time spent managing pt's care (in minutes): 45
--- NOTE | 2023-06-22 14:22 | P.CNS ---
Date of Consult: 06/22/23 Reason for Consult: SANTOS, CKD3 Requesting Physician: Gabriel Blake Chief Complaint: Abdominal pain rule out appendicitis History of Present Illness: 72M w/ PMHx of CKD3 presumed to be secondary to diabetes and hypertension, baseline SCr 1.5-1.7 (GFR 38-48 mL/min) as of September 2021, Htn, HLD, & DM2, who p/w abdominal pain & found to have acute appendicitis. He underwent appendectomy on 06/22/2023. SCr 2.6 on adm, at 2.4 today. He received IV fluids. Tolerating po intake. Allergies No Known Allergies Allergy (Verified 08/23/20 20:31) Home Medications: Amox/Clavulanate [Augmentin 875-125 Tab] 1 tab PO BID 3 Days #6 tab 06/22/23 Aspirin [Aspirin EC 81 MG] 1 tab PO DAILY 06/22/23 Metoprolol Tartrate 1 tab PO BID 06/22/23 Sacubitril/Valsartan [Entresto 24 mg-26 mg Tablet] 1 tab PO DAILY 06/22/23 - Past Medical/Surgical History Diabetic: Yes -: Diabetes mellitus type 2insulin-dependent -: Hypertension -: Chronic systolic CHF -: CAD -: CKD 3 -: Cholecystectomy -: 2 stents Psychosocial/ Personal History: Patient is . Lives at home. - Family History Father Medical History: Diabetes Mother Medical History: Diabetes - Social History Smoking Status: Former smoker Alcohol use: Yes CD- Drugs: No Caffeine use: Yes Review of Systems General: Unremarkable Eyes: Unremarkable ENT: Unremarkable Respiratory: Unremarkable Cardiovascular: Unremarkable Gastrointestinal: Abdominal Pain Genitourinary: Unremarkable Musculoskeletal: Unremarkable Integumentary: Unremarkable Neurological: Unremarkable Lymphatics: Unremarkable Physical Examination Temp Pulse Resp BP Pulse Ox 97.0 F 78 18 167/82 H 96 06/22/23 12:00 06/22/23 12:00 06/22/23 12:00 06/22/23 12:00 06/22/23 12:00 General: Other (no acute distress) HEENT: Atraumatic, Normocephalic Neck: Supple Respiratory: Other (symmetric chest expansion) Cardiovascular: No rubs, No murmurs Gastrointestinal: Soft and benign, No guarding Musculoskeletal: No clubbing Integumentary: No warmth Neurological: Normal speech, Normal tone Lymphatics: No axilla or inguinal lymphadenopathy Urinary: Other (no bladder distention) External genitalia: Deferred Rectal: Deferred Laboratory Data (last 24 hrs) 06/21/23 06/21/23 20:35 20:35 WBC 6.20 Hgb 10.6 L Hct 29.9 L Plt Count 179 Sodium 139 Potassium 3.5 BUN 31 H Creatinine 2.56 H Glucose 185 H Magnesium 2.0 Total Bilirubin 0.4 AST 15 ALT 24 Alkaline Phosphatase 108 Lipase 48 Conclusions/Impression: # SANTOS likely 2/2 prerenal state +/- ATn from prolonged prerenal SCr 2.6 on adm, at 2.4 today Received IVF [place] po fluid intake at least 2L/d # CKD3 presumed to be secondary to diabetes and hypertension Baseline SCr 1.5-1.7 (GFR 38-48 mL/min) as of September 2021 Monitor renal panel # Acute appendicitis S/p appendectomy on 06/22 F/u w/ Gen surg # Htn, chronic systolic HF, CAD s/p PCI Cont cardioprudent meds # DM2 Mngt per primary team
[2023-06-22] MEDS ORDERED: CHLORASEPTIC LOZENGES PO SCH (15:00)
--- NOTE | 2023-06-22 15:44 | EKG ---
Test Date: 2023-06-22 Test Time: 01:05:29 Associate Veterinarian: KAI MEASUREMENT RESULTS: Intervals: Rate: 82 CT: 176 QRSD: 88 QT: 384 QTc: 448 [place]: P: 57 CT: 176 QRS: 64 T: 62 INTERPRETIVE STATEMENTS: Normal sinus rhythm Cannot rule out Anterior infarct, age undetermined Abnormal ECG Compared to ECG 10/31/2022 04:59:32 Sinus tachycardia no longer present Ventricular premature complex(es) no longer present Myocardial infarct finding still present Electronically Signed On 06-22-23 15:41:26 CDT by Arie Bragg
[2023-06-22 16:42] VITALS: BP 146/78; TEMP 98.8
--- NOTE | 2023-06-22 19:20 | RAD REPORT ---
EXAM DESCRIPTION: Chest Single View CLINICAL HISTORY: 72 years Male abdominal pain COMPARISON: October 31, 2022 TECHNIQUE: AP view of the chest was obtained. FINDINGS: Cardiac silhouette is enlarged. Central vessels are increased and indistinct. No effusions bilaterally. Streaky perihilar airspace opacities bilaterally. Ill-defined interstitial and airspace opacities lower lungs bilaterally. IMPRESSION: Enlarged heart with marked pulmonary congestion. Infiltrate and atelectatic change versu s pulmonary congestion lungs bilaterally. Electronically signed by: Mayda Suggs MD 06/21/2023 11:49 PM CDT Due to temporary technical issues with the PACS/Fluency reporting system, reports are being signed by the in house radiologists without review as a courtesy to insure prompt reporting. The interpreting radiologist is fully responsible for the content of the report.
--- NOTE | 2023-06-22 20:40 | OP ---
Date of Procedure: 06/22/2023 Surgeon: Vik Guajardo MD, Preoperative Diagnosis: Acute appendicitis. Postoperative Diagnosis: Acute appendicitis. Procedure Performed: Laparoscopic appendectomy. Anesthesia: General endotracheal plus local with 0.25% Marcaine. Estimated Blood Loss: Less than 5 cc. Specimen: Vermiform appendix. Findings: Mild early appendicitis changes noted. Complications: None. Disposition: Patient was transferred to recovery room in good condition. Procedure In Detail: After informed consent was obtained, patient was brought to the operating room, prepped and draped in the usual sterile fashion. After adequate anesthesia was achieved. I made an infraumbilical incision down to subcutaneous tissues. A 5 mm 0-degree optical trocar attempted to be placed in the abdomen. However, there was significant preperitoneal fat. As such, I opted to place a different trocar location in the midline in the supraumbilical position at approximately 5 cm from the umbilicus. At this point, the skin was anesthetized sharply and 5 mm trocar was placed under di rect visualization with no evidence of complication. Insufflation was obtained at 15 mmHg at this ti me. There was no injury to vital structures upon entry into the abdomen. At this point, I inspected the infraumbilical incision site and there was no penetration to the peritoneal cavity at this point . There was a significant amount of preperitoneal fat at this point noted. I placed the 12 mm troca r under direct visualization with no evidence of complication. Additional trocar was placed in the s uprapubic position. This was similarly anesthetized sharply and incised. A 5 mm trocar was placed u nder direct visualization with no evidence of complication. At this point, patient was positioned he ad down, right side up position. Ratcheted graspers were used to grasp the patient's appendix. Ther e was found to have some mild inflammatory changes and some scar tissue over the top of this includin g some omental attachments. This was swept clean and the LigaSure device was used to separate the om ental attachments from the appendix at this point without evidence of complication. A mesenteric win telly was created at this point. Endo-LENNY 45 purple load fired across the base of the appendix and goo d approximation of tissues. LigaSure was then used to take the mesoappendix down with no evidence of complication. Appendix was placed in an EndoCatch bag, removed through the umbilical trocar, and se nt to pathologic examination. The area was copiously irrigated and pelvis was copiously irrigated at this point. All effluent was suctioned out at this point. Patient was positioned back in good posi tion. The remaining effluent was suctioned out. Iveth were found to be in good position without a ny evidence of leakage. There was no hemostatic measures was required at this point. The umbilical trocar site was closed using a Amos-Mikhail suture passer with 0 Vicryl in an interrupted fashion with good approximation of tissues. The abdomen was desufflated under direct visualization with no e vidence of complication. Remaining trocars were removed. All skin edges were then copiously irrigat ed and closed with a 4-0 Monocryl in running fashion. Dermabond was placed over top. Patient tolera vik the procedure well without evidence of complication and transferred to PACU in good condition. A ll counts were correct at the end of the case. ASHANTI/NEYDA Voice ID: [id number] Report ID: [id number]
== END 2023-06-22 17:00 | disposition home or self-care (01) ==
LOC: ER 18:55 → ERHOLD 06-22 → 4TH 06-22 11:29
PROVIDERS: ADMIT Internal Medicine Nephrology; ATTEND Hospitalist
PROC: 0DTJ4ZZ Resection of Appendix, Percutaneous Endoscopic Approach (ICD-10-PCS; principal; 2023-06-22 15:45)
DX: K35.80 Unspecified acute appendicitis (principal); I50.22 Chronic systolic (congestive) heart failure; I10 Essential (primary) hypertension; E11.9 Type 2 diabetes mellitus without complications; E78.5 Hyperlipidemia, unspecified; N18.30 Chronic kidney disease, stage 3 unspecified; Z95.5 Presence of coronary angioplasty implant and graft; Z23 Encounter for immunization
CPT/HCPCS: 93005; 87040 ×2; 85025 ×2; 81001; 36415; 83735; 82947 ×3; 83605; 88304; 83690; 80053 ×2; 76377; 74176; 71045; 99285; 44970; J1815; J1644; J2704; J1100; J2543 ×2; J2001; J3010 ×2; J2405; J7030 ×2; G0378 ×3

== ENCOUNTER 2023-07-05 13:38 | Emergency (ER) | payer OTHER ==
--- OUTSIDE RECORDS SUMMARY | 2023-07-05 13:44 | XMS REPORT | Continuity of Care Document ---
:1950 Author Organization [facility] t Address [address] [facility] [address] [place] [address] Care Team Providers Name Role Phone CLEOPATRA [...] Number Effective Date Expiration Date Jair encarnacion [facility] JOLIE [id number] 2022 00:00:00 Problems Condition Condition Condition Status Onset Resolution Last Treating Co mments Source Name Details Category Date Date Treatment Clinician Date Acute on Acute on Disease Recurre [facility]07 [facility] systolic systolic 00:00: Medica l heart heart 00 Center failure failure 1WK F/U; 1WK F/U; Diagnosis [facility] 2-10 14:49:00 l STARTED STARTED 00:00: Fermin NEW MEDS NEW MEDS 00 Active 10/06/2022 [facility] Phlegmon Phlegmon Disease Active [facility] 00:[facility]: Medical 00 Center No known No known Disease Unive rs active active ity of problems problems [facility] I50.9 - I50.9 - Diagnosis Active 2022-11-03 [facility] HEART HEART 09:28:00 l FAILURE, FAILURE, Sagar n UNSPECIFIE UNSPECIFIE D E11.9 D E11.9 Active [facility] Allergies, Adverse Reactions, Alerts Allergy Allergy Status Severity Reaction(s) Onset Inactive Treating Comm ents Source Name Type Date Date Clinician No Known No Known Active Memori a Medicati Medicati l on on Fermin Allergie Allergie s s NO KNOWN Allergy Active [facility] ALLERGIE S NO KNOWN Drug Active Univers ALLERGIE Class ity of S [facility] Family History Family Member Diagnosis Comments Start Date Stop Date Source Natural father Diabetes [facility] Social History Social Habit Start Date Stop Date Quantity Comments Source Exposure to Not sure [facility]-CoV-2 [facility] (event) Branch History of Current smoker [facility] tobacco use [facility]-Med [facility] Tobacco use and 2022-10-31 2022-10-31 Smokeless tobacco [facility] exposure 00:00[facility]00 00:00:00 non-user Medical Center History [facility] 2022-10-31 2022-10-[address] [facility] Housing Unable to 00:00:00 00:00:00 Medical Center Pay History [facility] 2022-10-31 2022-10-[address] [facility] Housing Places 00:00:00 00:00:00 Medical Ce nter Lived History [facility] 2022-10-31 2022-10-[address] [facility] Housing Homeless 00:00:00 00:00:00 Medical Center Last Year Tobacco Comment 2022-10-31 2022-10-31 [facility] Alcohol Comment 2022-10-31 2022-10-31 stopped [facility]00 ago [facility] Alcohol intake 2022-10-31 2022-10-31 Ex-drinker [facility] 00:00:00 00:00:00 (finding) Medical Center History SDOH 2022-10-31 2022-10-[address] [facility] Transport Med 00:00:00 00:00:[address] Sex Assigned At [address] [facility] 00:00:00 00:00:00 Medical Center Smoking Status Start Date Stop Date Source Ex-smoker 2022-10-31 00:00:00 2022-10-31 00:00:00 [facility] Tobacco smoking status [facility] Unknown if ever smoked [facility] Medications Ordered Filled Start Stop Current Ordering [...] Center daily for 90 days. aspirin 81 2022-2022- No 81mg QD Take [address] [facility] [facility] EC 3-10 -09 tablet (81 [facility] tablet 00:00: 00:00 mg total) Medic al 00 :00 by mouth Center daily for 30 days. aspirin 81 2022-2022- No 81mg QD Take [address] [facility] [address] [facility] EC 3-10 - tablet (81 [facility] tablet 00:00: 00:00 mg total) Medic al 00 :00 by mouth Center daily for 30 days. aspirin 81 3-0 3- No 81mg QD Take [address] [facility] EC 3-09 tablet (81 [facility] tablet 00:00: 00:00 mg total) Medic al 00 :00 by mouth Center daily for 30 days. metFORMIN 2023-0 2023- No 1000mg Take 1,[address] [facility] (GLUCOPHAGE 3-09 03-09 mg by [facility] ) 1000 MG 14:08: 00:00 mouth 2 Medi manisha tablet 17 :00 (two) Center times daily with breakfast and lunch. pantoprazol 3-0 2023- No 40mg QD Take [address] e 11-02-09 by mouth [facility] (PROTONIX) 14:08: 00:00 daily. Medi manisha 40 MG 17 :00 Center tablet valsartan 3-0 2023- No 80mg QD Take [address] (DIOVAN) 80 11-02-09 by mouth Mariano es MG tablet 14:08: 00:00 daily. Medic al 17 :00 Center metFORMIN 3-0 3- No 1000mg Take 1,[address] (GLUCOPHAGE 3-09 03-09 mg by [facility] ) 1000 MG 14:08: 00:00 mouth 2 Medi manisha tablet 17 :00 (two) Center times daily with breakfast and lunch. pantoprazol 3-0 2023- No 40mg QD Take [address] [facility] e 11-02-09 by mouth [facility] (PROTONIX) 14:08: 00:00 daily. Medi manisha 40 MG 17 :00 Center tablet valsartan 2023-0 2023- No 80mg QD Take [address] (DIOVAN) 80 11-02-09 by mouth Mariano es MG tablet 14:08: 00:00 daily. Medic al 17 :00 Center metFORMIN 3-0 2023- No 1000mg Take 1,[address] (GLUCOPHAGE 3-09 03-09 mg by [facility] ) 1000 MG 14:08: 00:00 mouth 2 Medi manisha tablet 17 :00 (two) Center times daily with breakfast and lunch. pantoprazol 2023-0 2023- No 40mg QD Take [address] [facility] e 3-09 by mouth [facility] (PROTONIX) 14:08: 00:00 daily. Medi manisha 40 MG 17 :00 Center tablet valsartan 2022- No 80mg QD Take [address] (DIOVAN) 80 11-02 by mouth Mariano es MG tablet 14:08: 00:00 daily. Medic al 17 :00 Center atorvastati 2022- No 40mg QD Take [address] n (LIPITOR) 11-02-07 tablet (40 L ukes 40 MG 00:00: 23:59 mg total) Medica l tablet 00 :00 by mouth Center nightly for 90 days. metoprolol 2022- No 25mg Q.5D Take [address] tartrate 11-02-07 tablet (25 Luke s (LOPRESSOR) 00:00: 23:59 mg total) Medical 25 MG 00 :00 by mouth 2 Center tablet (two) times daily for 90 days. sacubitriL- 2022-2022- No 1{tbl} Q.5D Take 1 C HI [...] mouth Center daily for 90 days. atorvastati 2022- No 40mg QD Take [address] n (LIPITOR) 11-02- tablet (40 L ukes 40 MG 00:00: 23:59 mg total) Medica l tablet 00 :00 by mouth Center nightly for 90 days. metoprolol 2022- No 25mg Q.5D Take [address] tartrate 11-02-07 tablet (25 Luke s (LOPRESSOR) 00:00: 23:59 mg total) Medical 25 MG 00 :00 by mouth 2 Center tablet (two) times daily for 90 days. sacubitriL- 2022- No 1{tbl} Q.5D Take [address] valsartan 11-02-07 tablet by Luke s (ENTRESTO) 00:00: 23:59 mouth 2 Med ical 24-26 mg 00 :00 (two) Center tablet times daily for 90 days. furosemide 2022-2022- No 40mg QD Take [address] (LASIX) 40 11-02 tablet (40 Rakel kes MG tablet 00:00: 23:59 mg total) Me dical 00 :00 by mouth Center daily for 90 days. atorvastati 2022-2022- No 40mg QD Take [...] 40mg QD Take [address] [facility] e 11-02 tablet (40 [facility] (PROTONIX) 00:00: 23:59 mg total) M edical 40 MG 00 :00 by mouth Center tablet daily for 30 days. pantoprazol 2022-2022- No 40mg QD Take [address] [facility] e 11-02 tablet (40 [facility] (PROTONIX) 00:00: 23:59 mg total) M edical 40 MG 00 :00 by mouth Center tablet daily for 30 days. pantoprazol 2022-2022- No 40mg QD Take [address] [facility] [facility] e 11-02 tablet (40 [facility] (PROTONIX) 00:00: 23:59 mg total) M edical 40 MG 00 :00 by mouth Center tablet daily for 30 days. atorvastati 2022-2022- No 40mg QD Take [address] n (LIPITOR) 11-02 tablet (40 L ukes 40 MG 00:00: 00:00 mg total) Medica l tablet 00 :00 by mouth Center nightly for 30 days. furosemide 2022-2022- No 40mg QD Take [address] (LASIX) 40 11-02 tablet (40 Rakel kes MG tablet 00:00: 00:00 mg total) Me dical 00 :00 by mouth Center daily for 30 days. metoprolol 2022-2022- No 25mg Q.5D Take [address] tartrate 11-02 tablet (25 Luke s (LOPRESSOR) 00:00: 00:00 mg total) Medical 25 MG 00 :00 by mouth 2 Center tablet (two) times daily for 30 days. sacubitriL- 2022-2022- No 1{tbl} Q.5D Take 1 C HI [...] mouth Center nightly for 30 days. furosemide 2022-2022- No 40mg QD Take [address] (LASIX) 40 11-02 tablet (40 Rakel kes MG tablet 00:00: 00:00 mg total) Me dical 00 :00 by mouth Center daily for 30 days. metoprolol 2022-0 2022- No 25mg Q.5D Take [address] tartrate 11-02 tablet (25 Luke s (LOPRESSOR) 00:00: 00:00 mg total) Medical 25 MG 00 :00 by mouth 2 Center tablet (two) times daily for 30 days. sacubitriL- 2023-2022- No 1{tbl} Q.5D Take 1 C HI [...] mouth Center nightly for 30 days. furosemide 2022-2022- No 40mg QD Take [address] (LASIX) 40 11-02 tablet (40 Rakel kes MG tablet 00:00: 00:00 mg total) Me dical 00 :00 by mouth Center daily for 30 days. metoprolol 2022-2022- No 25mg Q.5D Take [address] tartrate 11-02 tablet (25 Luke s (LOPRESSOR) 00:00: 00:00 mg total) Medical 25 MG 00 :00 by mouth 2 Center tablet (two) times daily for 30 days. sacubitriL- 2022-2022- No 1{tbl} Q.5D Take [address] valsartan 11-02 tablet by Luke s (ENTRESTO) 00:00: 00:00 mouth 2 Med ical 24-26 mg 00 :00 (two) Center tablet times daily for 30 days. 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, Weight potassium 3-0 Yes 20 mEq = 1 Me moria chloride 20 2-07 tab, PO, l mEq oral 16:19: BID, # 60 Herm roseanna tablet, 00 tab, 6 extended Refill(s), release Pharmacy: ([facility]) [facility] #[id number], 175.26, cm, 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/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 Take the second dose at 3pm., # 180 tab, 3 Refill(s), Pharmacy: [id number], Please fax refill request to ., 175.26, cm, 10/02/22 13:30:00 C... 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 Take the second dose at 3pm., # 180 tab, 3 Refill(s), Pharmacy: [facility] [place][id number], Please fax refill request to ., 175.26, cm, 10/02/22 13:30:00 C... 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 Take the second dose at 3pm., # 180 tab, 3 Refill(s), [id number], Please fax refill request to [phone]., 175.26, cm, 10/02/22 13:30:00 C... 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, Height, 84.545, kg, 10/02/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, Weight aspirin 81 2022-0 Yes 81 mg = 1 Me moria mg oral 2-06 cap, PO, l capsule 20:21: Daily, # Sagar n 00 90 cap, 3 Refill(s), [facility][id number], Please fax refill request to ., 175.26, cm, 10/02/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, Height, 84.545, kg, 10/02/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, Weight Entresto 24 2022-0 Yes 1 tab, PO, Memoria mg-26 mg 2-06 BID, # 180 l oral tablet 20:21: tab, 3 Herm roseanna 00 Refill(s), [id number], Please fax refill request to ., 175.26, cm, 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/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, Height, 84.545, kg, 10/02/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, Weight aspirin 81 2022-0 Yes 81 mg = 1 Me moria mg oral 2-06 cap, PO, l capsule 20:21: Daily, # Sagar n 00 90 cap, 3 Refill(s), [id number], Please fax refill request to ., 175.26, cm, 10/02/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, Height, 84.545, kg, 10/02/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, 175.26, cm, 10/02/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, Height, 84.545, kg, 10/02/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, Weight Entresto 24 2022-0 Yes 1 tab, PO, Memoria mg-26 mg 2-06 BID, # 180 l oral tablet 20:21: tab, 3 Herm roseanna 00 Refill(s), [facility][id number], Please fax refill request to [phone]., 175.26, cm, 10/02/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, Height, 84.545, kg, 10/02/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, Weight pantoprazol 3-0 Yes 40 mg = 1 M emoria e 40 mg 2-06 tab, PO, l oral 19:27: Daily, 0 Fermin enteric 00 Refill(s) coated tablet pantoprazol 2023-0 Yes 40 mg = 1 M emoria e 40 mg 2-06 tab, PO, l oral 19:27: Daily, 0 [place] enteric 00 Refill(s) coated tablet pantoprazol 2023-0 Yes 40 mg = 1 M emoria e 40 mg 2-06 tab, PO, l oral 19:27: Daily, 0 [place] enteric 00 Refill(s) coated tablet valsartan Yes 80 mg = 1 Mem oria 80 mg oral 2-06 tab, PO, l tablet 19:26: Daily, 0 [place] Refill(s) Farxiga 5 0 Yes 5 mg = 1 Rubens maximo mg oral 2-06 tab, PO, l tablet 19:26: Daily, 0 [place] 00 Refill(s) valsartan Yes 80 mg = 1 Mem oria 80 mg oral 2-06 tab, PO, l tablet 19:26: Daily, 0 [place] 00 Refill(s) Farxiga 5 Yes 5 mg = 1 Rubens maximo mg oral 2-06 tab, PO, l tablet 19:26: Daily, 0 [place] Refill(s) valsartan Yes 80 mg = 1 Mem oria 80 mg oral 2-06 tab, PO, l tablet 19:26: Daily, 0 [place] Refill(s) Farxiga 5 Yes 5 mg = 1 Rubens maximo mg oral 2-06 tab, PO, l tablet 19:26: Daily, 0 [place] 00 Refill(s) iohexol 2020- No [id number] 120mL 120 mL, U nivers (OMNIPAQUE 12-25 [...] Take 5 mLs [facility] -21 11-09 by mouth [facility] WITH 00:00: 00:00 every 6 Medical steroid 00 :00 (six) Center oral hours. suspension Magic 2019-0 2023- No 5mL Take 5 mLs [facility] 1-28 -09 by mouth [facility] WITH 00:00: 00:00 every 6 Medical steroid 00 :00 (six) Center oral hours. suspension Magic 2019-0 3- No 5mL Take 5 mLs [facility] Mouthwash 1-28 -09 by mouth [facility] WITH 00:00: 00:00 every 6 Medical steroid 00 :00 (six) Center oral hours. suspension HUMULIN 2018-1 Yes 30U Inject [facility] 70/30 U-100 2-18 30-60 [facility] INSULIN 100 00:00: Units Medic al unit/mL 00 [facility] Center (70-30) usly 2 injection (two) times daily with breakfast and dinner Inject 60 units after breakfast Inject 30 units after dinner. HUMULIN 2017-08 Yes 30U Inject [facility] 70/30 U-100 2-18 30-60 [facility] INSULIN 100 00:00: Units Medic al unit/mL 00 [facility] Center (70-30) usly 2 injection (two) times daily with breakfast and dinner Inject 60 units after breakfast Inject 30 units after dinner. HUMULIN 2017-08 Yes 30U Inject [facility] 70/30 U-100 2-18 30-60 [facility] INSULIN 100 00:00: Units Medic al unit/mL 00 [facility] Center (70-30) usly 2 injection (two) times daily with breakfast and dinner Inject 60 units after breakfast Inject 30 units after dinner. HUMULIN 2017-08 Yes 30U Inject [facility] 70/30 U-100 2-18 30-60 [facility] INSULIN 100 00:00: Units Medic al unit/mL 00 [facility] (70-30) usly 2 injection (two) times daily with breakfast and dinner Inject 60 units after breakfast Inject 30 units after dinner. HUMULIN 2017-08- No 30U Inject [facility] 70/30 U-100 -18 11-02 30-60 [facility] INSULIN 100 00:00: 00:00 Units Medi manisha unit/mL 00 :00 [facility] (70-30) usly 2 injection (two) times daily with breakfast and dinner Inject 60 units after breakfast Inject 30 units after dinner. HUMULIN 2017-08- No 30U Inject [facility] 70/30 U-100 2-18 - 30-60 [facility] INSULIN 100 00:00: 00:00 Units Med[facility] man[facility] usly 2 injection (two) times daily with breakfast and dinner Inject 60 units after breakfast Inject 30 units after dinner. HUMULIN 2017-08- No 30U Inject [facility] 70/30 U-100 2-18 11-02 30-60 [facility] INSULIN 100 00:00: 00:00 Units Medi manisha unit/mL 00 :00 [facility] (70-30) usly 2 injection (two) times daily with breakfast and dinner Inject 60 units after breakfast Inject 30 units after dinner. No known No [facility] medications [facility] Vital Signs Vital Name Observation Time Observation Value Comments Source HEIGHT 2022-10-31 12:00:00 177.8 cm WEIGHT 2022-10-31 12:00:00 83.462 kg HEIGHT 2022-10-31 12:00:00 177.8 cm WEIGHT 2022-10-31 12:00:00 83.462 kg HEIGHT 2022-10-31 12:00:00 177.8 cm WEIGHT 2022-10-31 12:00:00 83.462 kg Systolic blood 2020-12-25 19:00:00 140 mm[Hg[facility] 2020-12-25 19:00:00 80 mm[facility]Hg[facility] 2020-12-25 19:00:00 86 /min [facility] Respiratory rate 2020-12-25 19:00:00 19 /min [facility] Oxygen saturation in 2020-12-25 19:00:00 97 /min [facility] Pulse oximetry Branch Body temperature 2020-12-25 13:14:00 37.06 Riana [facility] Body height 2020-12-25 13:14:00 177.8 cm [facility] Body weight 2020-12-25 13:14:00 86.183 kg [facility] BMI 2020-12-25 13:14:00 27.26 kg/m2 [facility] Systolic blood 2022-11-02 12:00:00 103 mm[Hg] [facility] Diastolic blood 2022-11-02 12:00:00 59 mm[Hg] MY[facility]LE S [facility] Heart rate 2022-11-02 12:00:00 67 /min [facility] Body temperature 2022-11-02 12:00:00 36.33 Riana [facility] Respiratory rate 2022-11-02 12:00:00 18 /min [facility] Oxygen saturation in 2022-11-02 12:00:00 99 /min [facility] Arterial blood by Medical Ce nter Pulse oximetry Body height 2022-10-31 12:00:00 177.8 cm [facility] Body weight 2022-10-31 12:00:00 83.462 kg [facility] BMI 2022-10-31 12:00:00 26.40 kg/m2 [facility] Procedures Procedure Date / Time Performing Clinician Source Performed POCT-GLUCOSE METER 2022-11-02 11:51:00 Amish Becker [facility] POCT-GLUCOSE METER 2022-11-02 06:08:00 Amish Becker [facility] CBC W/PLT COUNT & AUTO 2022-11-02 04:24:00 [facility] CBC W/PLT COUNT & AUTO 2022-11-02 04:24:00 [facility] BASIC METABOLIC PANEL 2022-11-02 04:24:00 [facility] MAGNESIUM 2022-11-02 04:24:00 [facility] PHOSPHORUS 2022-11-02 04:24:00 [facility] POCT-GLUCOSE METER 2022-11-01 20:51:00 Amish Becker [facility] POCT-GLUCOSE METER 2022-11-01 15:14:00 Amish Becker [facility] POCT-GLUCOSE METER 2022-11-01 11:41[facility] POCT-GLUCOSE METER 2022-11-01 06:34:00 Ebenezer Patino [facility] CBC W/PLT COUNT & AUTO 2022-11-01 04:23:00 [facility] CBC W/PLT COUNT & AUTO 2022-11-01 04:23:00 [facility] BASIC METABOLIC PANEL 2022-11-01 04:23:00 [facility] MAGNESIUM 2022-11-01 04:23:00 [facility] PHOSPHORUS 2022-11-01 04:23:00 [facility] HEMOGLOBIN A1C 2022-11-01 04:23:00 [facility] TSH/FREE T4 IF 2022-11-01 04:23:00 [facility] Center LIPID PANEL 2022-11-01 04:23:00 [facility] B-TYPE NATRIURETIC 2022-11-01 04:23:00 [facility] Center POCT-GLUCOSE METER 2022-10-31 20:32:00 [facility] 2022-10-31 20:30:00 [facility] POCT-GLUCOSE METER 2022-10-31 16:27:00 [facility] XR CHEST 1 VIEW 2022-10-31 14:10:00 [facility] PORTABLE / BEDSIDE Center TROPONIN I 2022-10-31 14:09:00 [facility] 2D ECHO W/ DOPPLER 2022-10-31 13:05:54 [facility] (CW/PW/COLOR) [place] POCT-GLUCOSE METER 2022-10-31 12:40:00 [facility] 2022-10-31 00:00:00 [facility] Scanning Center TROPONIN I 2020-12-25 17:43:00 Luba Donovan [facility] [place] ABDOMEN PELVIS W 2020-12-25 15:16:27 Luba Donovan [facility] XR CHEST 1 VW 2020-12-25 13:41:53 Luba Donovan [facility] LIPASE 2020-12-25 13:29:00 Luba Donovan [facility] TROPONIN I 2020-12-25 13:29:00 Luba Donovan [facility] HEPATIC FUNCTION PANEL 2020-12-25 13:29:00 Luba Donovan [facility] ([id number]) (ALB,T.PRO,BILI Medical Branch T,BU/BC,ALT,AST,ALK PHOS) BASIC METABOLIC PANEL 2020-12-25 13:29:00 Luba Donovan [facility] (NA, K, CL, CO2, Medical Branch GLUCOSE, BUN, CREATININE, CA) CBC WITH DIFF 2020-12-25 13:29:00 Luba Donovan [facility] COVID-19 (ID NOW RAPID 2020-12-25 13:29:00 Luba Donovan [facility] TESTING) [facility] HB ECG ROUTINE & RHYTHM 2020-12-25 13:27:27 Luba Donovan [facility] NOTICE OF PRIVACY 2020-12-25 13:07:34 Doctor Unassigned, No [facility] PRACTICES Name [facility] CONSENT/REFUSAL FOR 2020-12-25 13:07:20 Doctor Unassigned, No [facility] Center DIAGNOSIS AND TREATMENT Name [facility] Plan of Care Planned Activity Planned Date [...] [facility] Test 00:00:00 measurement (procedure) [facility] [code = 86574534] Future Scheduled 2018-08-[address] [address] [facility] 00:[facility]00 of 1 - [facility]IG[facility] PCV13) [code = PNEUMOCOCCAL 65+ YRS (1 of 1 - [id number] PCV13)] Future Scheduled [address] [facility] Test 00:00:00 aneurysm screening Medical C enter (procedure) [code = 670944655] Future Scheduled [address] [facility] Test 00:00:00 aneurysm screening Medical C enter (procedure) [code = 387412330] Future Scheduled [address] [facility] Test 00:00:00 aneurysm screening Medical C enter (procedure) [code = 007487082] Future Scheduled 2002 SHINGLES VACCINES ([address] [facility] Test 00:00:00 2) [code = SHINGLES Medical Center VACCINES (1 of 2)] Future Scheduled 2002 SHINGLES VACCINES ([address] [facility] Test 00:00:00 2) [code = SHINGLES Medical Center VACCINES (1 of 2)] Future Scheduled 2002 SHINGLES VACCINES ([address] [facility] Test 00:00:00 2) [code = SHINGLES Medical Center VACCINES (1 of 2)] Future Scheduled 2002 SHINGLES VACCINES ([address] [facility] Test 00:00:00 2) [code = SHINGLES Medical Center VACCINES (1 of 2)] Future [...] [facility] Test 00:00:00 protein (procedure) [facility] Center [code = 631949176] Future Scheduled 1958 PNEUMOCOCCAL 65+ YRS (1 [...] [facility] Test 00:00:00 [code = CT [facility] Future Scheduled 1950 Screening for malignant [facility] Test 00:00:00 neoplasm of colon Medical Ce nter (procedure) [code = 032413144] Future Scheduled 1952 Screening for malignant [facility] Test 00:00:00 neoplasm of colon Medical Ce nter (procedure) [code = 411983263] Future Scheduled 1952 Screening for malignant [facility] Test 00:00:00 neoplasm of colon Medical Ce nter (procedure) [code = 610880748] Future Scheduled 1952 Screening for malignant [facility] Test 00:00:00 neoplasm of colon Medical Ce nter (procedure) [code = 362292610] Future Scheduled 1950 Sigmoidoscopy [code = [facility]oscopy] Medical Cente r Future Scheduled 1952 CT Colonography (combo) [facility] Test 00:00:00 [code = CT Colonography [facility] (combo)] Future Scheduled 1952 Screening for malignant [facility] Test 00:00:00 neoplasm of colon Medical Ce nter (procedure) [code = 156882758] Future Scheduled 1952 Screening for malignant [facility] Test 00:00:00 neoplasm of colon Medical Ce nter (procedure) [code = 329374555] Future Scheduled 1952 Screening for malignant [facility] Test 00:00:00 neoplasm of colon Medical Ce nter (procedure) [code = 461466723] Future Scheduled 1952 Screening for malignant [facility] Test 00:00:00 neoplasm of colon Medical Ce nter (procedure) [code = 328058342] Future Scheduled 1950 Sigmoidoscopy [code = [facility] 00:[facility]oscopy] Medical Cente r Future Scheduled 1952 Screening for malignant [facility] Test 00:00:00 neoplasm of colon Medical Ce nter (procedure) [code = 125333300] Future Scheduled 1952 CT Colonography (combo) [facility] Test 00:00:00 [code = CT Colonography [facility] (combo)] Future Scheduled 1952 Screening for malignant [facility] Test 00:00:00 neoplasm of colon Medical Ce nter (procedure) [code = 561964887] Future Scheduled 1952 Screening for malignant [facility] Test 00:00:00 neoplasm of colon Medical Ce nter (procedure) [code = 183427527] Future Scheduled 1952 Screening for malignant [facility] Test 00:00:00 neoplasm of colon Medical Ce nter (procedure) [code = 405309140] Future Scheduled 1952 Screening for malignant [facility] Test 00:00:00 neoplasm of colon Medical Ce nter (procedure) [code = 784895610] Future Scheduled 1950 Sigmoidoscopy [code = [facility] 00:[facility] S[facility]oidoscopy] Medical Cente r Encounters Start End Encounter Admission Attending Care Care Encounter Source Date/Time Date/Time Type Type Clinicians Facility Department ID 2022-11-20 Outpatient [facility] [id number] [place] 13:42:49 [id number] [facility] 2022-11-10 Outpatient [facility] [address] [facility] 14:48:42 [facility] 2022-11-03 Outpatient [facility] [id number] [place] 09:03:58 [id number] [facility] 2022-10-04 Outpatient [facility] [id number] [place] 02:24:14 [id number] [facility] 2022-10-02 Outpatient [facility] [id number] [place] 13:00:36 [id number] [facility] 2022-11-03 2022-11-04 Outpt Diag [facility] [id number] 15:17:00 05:59:00 Services Outpatient 03 l Imaging - Sagar n Orestes 2022-11-03 2022-11-04 Outpt Diag [facility] [id number] 15:17:00 05:59:00 Services Outpatient 03 l Imaging [place] cristobal Orestes 2022-11-03 2022-11-03 Out[facility] [id number] 09:17:00 23:59:[address] [place] [address] 2022-10-31 2022-11-02 [facility] [id number] [facility] 12:[facility]55[facility] 2022-10-31 2022-11-02 [facility] [id number] [facility] 12:02:00 15:55:00 Encounter Amish Becker [facility] 2022-10-31 2022-11-02 Inpatient ER SARAH [facility] Cardiology [id number] [facility] 12:02:00 15:55:00 [facility] 2022-10-31 2022-10-31 Travel [facility] [id number] [facility] 00:[facility]:00 [facility] 2022-10-31 2022-10-31 Travel [facility] [id number] [facility] 00:[facility] 00:00:00 [facility] 2022-10-02 2022-10-02 Outpatient [facility] [address] [facility] 13:02:00 23:59:00 [facility] 2020-12-25 2020-12-25 Emergency [facility] [id number] [facility] 08:15:00 14:29:00 Luba Patel [id number] starr [facility] [id number] [facility] [id number] [place] [id number] [address] 2020-12-25 2020-12-25 Emergency [facility] ERT [id number] [employer] 08:15:00 14:29:00 LUBA clements [facility] Results Test Description Test Time Test Comments Results Result Comments Source RADRPT 2022-11-03 19:31:24 Test Item Value Reference Range Interpretation Comme nts RADRPT (test code = RADRPT) EXAM: CT CHEST WITHOUT CONTRASTDATE: 05/2023 11:27 INDICATION: - R06.02 Shortness of breathTECHNIQUE: Volumetric CT acquisition of the chest without contrast. Axial, sagittal and coronal reconstructions. MIP images were performedDLP: Please refer to ct scan technologist report.COMPARISON: None available.FINDINGS: Lower Neck: The [...] stents.6. Other incidental findings as described above. [facility]ct[facility]YLBDCV[facility]20-28-80 19:31:24 Test Item Value Reference Range Interpretation Comments RADRPT (test code EXAM: CT CHEST WITHOUT = RADRPT) CONTRASTDATE: 11/03/2022 11:27 INDICATION: - R06.02 Shortness of breathTECHNIQUE: Volumetric CT acquisition of the chest without contrast. Axial, sagittal and coronal reconstructions. MIP images were performedDLP: Please refer to ct scan technologist report.COMPARISON: None available.FINDINGS: [place]ck: The [...] stents.6. Other incidental findings as described above. [facility] HospitalHmzwssxXLCQCZ2463-71-09 19:31:24 Test Item Value Reference Range Interpretation Comments RADRPT (test code EXAM: CT CHEST WITHOUT = RADRPT) CONTRASTDATE: 11/03/2022 11:27 INDICATION: - R06.02 Shortness of breathTECHNIQUE: Volumetric CT acquisition of the chest without contrast. Axial, sagittal and coronal reconstructions. MIP images were performedDLP: Please refer to ct scan technologist report.COMPARISON: None available.FINDINGS: [place] Neck: The [...] stents.6. Other incidental findings as described above. [facility]951-74-89 18:38:14 Test Item Value Reference Range Interpretation Comments RADRPT (test code EXAM: US ANKLE BRACHIAL = RADRPT) INDEX WITH DOPPLERDATE: 11/03/2022 INDICATION: - I25.10 Atherosclerotic heart disease of [place] coronary artery without angina pectoris ADDITIONAL INFORMATION: [...] more Mild: 0.40-0.59Moderate-Severe: 0.21-0.39Severe: 0.20 or less [facility] CenterXfieufkTJDFTL3975-21-16 18:38:14 Test Item Value Reference Range Interpretation Comments RADRPT (test code EXAM: US ANKLE BRACHIAL = RADRPT) INDEX WITH DOPPLERDATE: 11/03/2022 INDICATION: - I25.10 Atherosclerotic heart disease of [place] coronary artery without angina pectoris ADDITIONAL INFORMATION: [...] more Mild: 0.40-0.59Moderate-Severe: 0.21-0.39Severe: 0.20 or less [facility] CenterMwbfxkgTZPFQB5340-38-62 18:38:14 Test Item Value Reference Range Interpretation Comments RADRPT (test code EXAM: US ANKLE BRACHIAL = RADRPT) INDEX WITH DOPPLERDATE: 11/03/2022 INDICATION: - I25.10 Atherosclerotic heart disease of [place] coronary artery without angina pectoris ADDITIONAL INFORMATION: [...] more Mild: 0.40-0.59Moderate-Severe: 0.21-0.39Severe: 0.20 or less [facility] CenterYjeregtXLIBKH6869-75-08 17:40:37 Test Item Value Reference Range Interpretation [...] jets.Free fluid: None.Other: None.IMPRESSION:1. Normal renal ultrasound. [facility] CenterWqxfbluCTWIFY8908-15-29 17:40:37 Test Item Value Reference Range Interpretation [...] jets.Free fluid: None.Other: None.IMPRESSION:1. Normal renal ultrasound. [facility] CenterAofsemgQCJUZM1218-10-41 17:40:37 Test Item Value Reference Range Interpretation [...] jets.Free fluid: None.Other: None.IMPRESSION:1. Normal renal ultrasound. [facility] CenterMuytkjbCKUJGQ2962-58-61 17:38:49 Test Item Value Reference Range Interpretation Comments RADRPT (test code EXAM: US BILATERAL LOWER = RADRPT) EXTREMITY ARTERIAL DOPPLERDATE: 11/03/2022 10:30 INDICATION: - I25.10 Atherosclerotic heart disease of [place] coronary artery without angina pectoris ADDITIONAL INFORMATION: [...] increased velocities to indicate hemodynamically significant stenosis. [facility] HospitalDrwmltjBRFUUH2003-32-67 17:38:49 Test Item Value Reference Range Interpretation Comments RADRPT (test code EXAM: US BILATERAL LOWER = RADRPT) EXTREMITY ARTERIAL DOPPLERDATE: 11/03/2022 10:30 INDICATION: - I25.10 Atherosclerotic heart disease of [place] coronary artery without angina pectoris ADDITIONAL INFORMATION: [...] increased velocities to indicate hemodynamically significant stenosis. [facility] HospitalFtgvtirKCVAIH7132-95-01 17:38:49 Test Item Value Reference Range Interpretation Comments RADRPT (test code EXAM: US BILATERAL LOWER = RADRPT) EXTREMITY ARTERIAL DOPPLERDATE: 11/03/2022 10:30 INDICATION: - I25.10 Atherosclerotic heart disease of [place] coronary artery without angina pectoris ADDITIONAL INFORMATION: [...] increased velocities to indicate hemodynamically significant stenosis. [facility]-Glucose ldbvr9563-23-24 13:06:33 Test Item Value Reference Range Interpretation Comments POC-Glucose Meter (test 169 mg/dL 70-110 H : TE STED AT SLSL code = 1538) [address] [place] [address]4768: [employer]inder/Techni jorge ID = [id number] for Mary Donovna ee Lab Interpretation (test Abnormal code = 37751-7) [facility] aanki6505-76-21 13:06:33 Test Item Value Reference Range Interpretation Comments POC-Glucose Meter (test 169 mg/dL 70-110 H : TE STED AT SLSL code = 1538) [address] [place] [address]68: [employer]inder/Techni jorge ID = [id number] for Mary Donovan ee Lab Interpretation (test Abnormal code = 84919-2) [facility]-Glucose uyapw2270-65-35 13:06:33 Test Item Value Reference Range Interpretation Comments POC-Glucose Meter (test 169 mg/dL 70-110 H : TE STED AT SLSL code = 1538) [address] [place] [address]: [employer]inder/Techni jorge ID = [id number] for Mary Donovan ee Lab Interpretation (test Abnormal code = 39840-1) [facility]-GLUCOSE SICNJ7076-55-72 13:06:33 Test Item Value Reference Range Interpretation Comments POC-GLUCOSE METER 169 mg/dL 70-110 H : TESTED A T [address]SL [address] (BEAKER) (test code [address], = 1538) [place] [address]: [employer]inder/Techni jorge ID = [id number] for Kitty Funes POCT-GLUCOSE [id number] 06:29:40 Test Item Value Reference Range Interpretation Comments POC-GLUCOSE METER 133 mg/dL 70-110 H : TESTED A T [address] (BEAKER) (test code [address], = 1538) [place] [address]: [employer]inder/Techni jorge ID = [id number] for Verna Chicas EAWZBLBKE5795-11-98 05:26:09 Test Item Value Reference Range Interpretation Comments MAGNESIUM (BEAKER) (test code = 2.2 mg/dL 1.5-3.0 627) [employer] ID - [id number] ID - [id number] ID - [id number] ID - [id number] BASIC METABOLIC PHQNM9399-41-61 05:25:10 Test Item Value Reference Range Interpretation [...] G3b Moderately to s everely 30-44 G4 Sever ly decreased 15-29 G5 Kidney failure <15Repo rted eGFR is based on the CKD-EPI 2021 equation t hat does not use a race coefficientEsti mated GFR is not as accur ate as Creatinine Mary bianca in predicting glom erular filtration rate . Estimated GFR is not appl icable for dialysis patien ts [employer] ID - [id number] ID - [id number] ID - [id number] ID - [id number] ID - [id number] ID - [id number] ID - [id number] ID - [id number] ID - [id number] ID - PMKG52QGNYPHQQVL9358-80-68 05:23:09 Test Item Value Reference Range Interpretation Comments PHOSPHORUS (BEAKER) (test code = 4.1 mg/dL 2.5-4.5 604) [employer] ID - [id number] W/PLT COUNT & AUTO ICRRFRAAMIXE1283-03-24 05:14:47 Test Item Value Reference Range Interpretation [...] PERCENT (BEAKER) (test code = 2801) POCT-GLUCOSE [id number] 21:06:50 Test Item Value Reference Range Interpretation Comments POC-GLUCOSE METER 167 mg/dL 70-110 H : TESTED A T [address] (BEAKER) (test code [address], = 1538) [place] [address]: [employer] Grinder/Techni jorge ID = [id number] for Verna Chicas POCT-GLUCOSE [id number] 15:35:11 Test Item Value Reference Range Interpretation Comments POC-GLUCOSE METER 152 mg/dL 70-110 H : TESTED A T [address] (BEAKER) (test code [address], = 1538) [place] [address]: [employer] Grinder/Techni jorge ID = [id number] for Audrey Ballesteros POCT-GLUCOSE IHIZS5356-21-14 15:35:10 Test Item Value Reference Range Interpretation Comments POC-GLUCOSE METER 129 mg/dL 70-110 H : TESTED A T [address] (BEAKER) (test code [address], = 1538) [place] [address]: [employer] Grinder/Techni jorge ID = [id number] for Kitty Funes POCT-GLUCOSE TGBGZ3210-74-57 06:51:37 Test Item Value Reference Range Interpretation Comments POC-GLUCOSE METER 113 mg/dL 70-110 H : TESTED A T [address] (BEAKER) (test code [address], = 1538) [place] [address]: [employer] Grinder/Techni jorge ID = [id number] for Verna Chicas TSH/FREE T4 IF [id number] 05:08:24 Test Item Value Reference Range Interpretation Comments THYROID STIMULATING HORMONE 0.670 uIU/mL 0.350-5.500 (BEAKER) (test code = 772) [employer] ID - LITOHEMOGLOBIN [id number] 05:05:38 Test Item Value Reference Range Interpretation Comments HEMOGLOBIN A1C (BEAKER) (test code = 5.9 % 4.3-6.1 368) [employer] ID - LITOB-TYPE NATRIURETIC FACTOR (BNP)2022-11-01 04:57:04 Test Item Value Reference Range Interpretation Comments B-TYPE NATRIURETIC PEPTIDE 1155 pg/mL 0-100 H (BEAKER) (test code = 700) [employer] ID - LITOBASIC METABOLIC [id number] 04:55:28 Test Item Value Reference Range Interpretation [...] not as accur ate as Creatinine Mary valenzuela in predicting glom erular filtration rate . Estimated GFR is not appl icable for dialysis patien ts [employer] Grinder ID - LITOOperator ID - LITOOperator ID - LITOOperator ID - LITOOperator ID - LITOOperator ID - LITOOperator ID - LITOOperator ID - LITOOperator ID - LITOOperator ID - LITOLIPID [id number] 04:54:13 Test Item Value Reference Range Interpretation [...] Borderline 130-159 High 160-189 Very High >=190 [employer] ID - LITOOperator ID - LITOOperator ID - [id number] 04:54:13 Test Item Value Reference Range Interpretation Comments MAGNESIUM (BEAKER) (test code = 1.9 mg/dL 1.5-3.0 627) [employer] ID - LITOOperator ID - LITOOperator ID - LITOOperator ID - MONIQUE [id number] 04:51:31 Test Item Value Reference Range Interpretation Comments PHOSPHORUS (BEAKER) (test code = 4.0 mg/dL 2.5-4.5 604) [employer] ID - LITOCBC W/PLT COUNT & AUTO [id number] 04:45:40 Test Item Value Reference Range Interpretation [...] PERCENT (BEAKER) (test code = 2801) POCT-GLUCOSE [id number] 00:47:01 Test Item Value Reference Range Interpretation Comments POC-GLUCOSE METER 136 mg/dL 70-110 H : TESTED A T [address] (BEAKER) (test code [address], = 1538) [facility] [address]: [employer] Grinder/Techni jorge ID = [id number] for Verna Chicas TROPONIN [id number] 21:06:16 Test Item Value Reference Range Interpretation [...] failure, acidosis, acute neurological disease, and persistent tachyarrhythmia.[employer] ID - [id number]-BDWLEBN [id number] 18:05:49 Test Item Value Reference Range Interpretation Comments POC-GLUCOSE METER 166 mg/dL 70-110 H : TESTED A T [address] (BEAKER) (test code [address], = 1538) [facility] [address]: [employer] Grinder/Techni jorge ID = [id number] for Jaqueline Conklin POCT-GLUCOSE [id number] 18:05:48 Test Item Value Reference Range Interpretation Comments POC-GLUCOSE METER 101 mg/dL 70-110 : TESTED A T [address] (BEAKER) (test code [address], = 1538) [place] [address]: [employer] Grinder/Techni jorge ID = [id number] for Jaqueline Conklin 2D Echo W/Doppler(CW/PW/Color)2022-10-31 15:20:57Ejection FractionSLEH ECHO HEARTLAB [facility] W/Doppler(CW/PW/Color)2022-10-31 15:20:57Ejection FractionSLEH ECHO HEARTLAB [facility] W/Doppler(CW/PW/Color) 2022-10-31 15:20:57Ejection FractionSLE ECHO HEARTLAB [facility] 1 [facility], NON [id number] 15:08:00Reason for exam:->sobShould this be performed at the bedside?->Yes [facility] 1950 Sex: MFINAL REPORT RAD, CHEST, 1 VIEW, NON DEPT TECHNIQUE: Frontal view(s) of the chest. INDICATION: sob COMPARISON: None FINDINGS/IMPRESSION: Lines/Tubes: None Lungs/pleura: Patchy airspace opacities bilaterally. Small right pleural effusion. No pneumothorax. Heart and Mediastinum: Unchanged. Soft Tissues and Bones: Unchanged. Signed: Mikki Nguyen MDReport Verified Date/Time: 10/31/2022 15:08:58 Reading Location: [facility] Radiology Reading Room TROPONIN [id number] 14:34:54 Test Item Value Reference Range Interpretation [...] failure, acidosis, acute neurological disease, and persistent tachyarrhythmia.[employer] ID - [id number] I 2020-12-25 19:09:05 Test Item Value Reference Range Interpretation Comments TROPONIN I (test 0.030 ng/mL See_Comment [Automated code = 4198274886) message] The system which generated this result [...] ? Lab Interpretation Normal (test code = 80539-8) [facility] PEL[facility] W [id number] 17:09:211. ?No acute intraabdominal pathology. 2. Minimal haziness of the upper abdominal mesenteric fat is nonspecific,but may be related to mild mesenteric panniculitis. 3. Hepatomegaly. There is a subcentimeter enhancing focus at the dome ofthe liver, possibly a flash filling hemangioma. This is incompletel ycharacterized on this examination. RL: 6214AF: [id number] End of Report EXAM: CT ABDOMEN PELVIS [...] in the lower thoracic and lumbar spine. [facility], Radiant Results Inft User - 12/25/2020 12:10 PM CDTEXAM: CT ABDOMEN PELVIS W CONTRASTOrdering Physician: LUBA DONOVAN HISTORY: Abdominal Pain.COMPARISON: noneTECHNIQUE: CT of the abdomen and pelvis with IV contrast. Coronal andsagittal reformatted images were obtained. CT [facility].TECHNICAL QUALITY: AdequateCT OF THE ABDOMEN WITH IV [...] This is incompletelycharacterized on this examination.RL: 6214AFC: [id number] Report [facility] 1 [id number] 14:50:12 No radiographic evidence of acute cardiopulmonary [...] reviewed this study and agree with theabove report.[facility] DistrictTrashley [id number] 14:05:24 Test Item Value Reference Range Interpretation Comments TROPONIN I (test 0.033 ng/mL See_Comment [Automated code = 7002639378) message] The system which generated this result [...] ? Lab Interpretation Normal (test code = 81721-8) [facility] Met[facility] (NA, K, CL, CO2, GLUCOSE, BUN, CREATININE, CA)2020-12-25 13:54:05 Test Item Value Reference Range Interpretation Comments NA (test code = 136 mmol/L 135-145 2967571528) K (test code = 3.8 mmol/L 3.5-5.0 1926354902) CL (test code = 104 mmol/L 98-108 3168987031) CO2 TOTAL (test code = 20 mmol/L 23-31 L 3719685447) AGAP (test code = 2-16 3715645381) BUN (test code = 28 mg/dL 7-23 H 2117762247) GLUCOSE (test code = 371 mg/dL 70-110 H 6215986093) CREATININE (test code = 1.21 mg/dL 0.60-1.25 1818713108) CALCIUM (test code = 8.5 mg/dL 8.6-10.6 L 3543314429) eGFR (test code = mL/min/1.73m2 0405617188) MAXWELL (test code = MAXWELL) Association of [...] tests). Lab Interpretation Abnormal (test code = 28327-7) [facility] District[facility] Function [facility] (ALB, T.PRO, BILI T, BU/BC, ALT, AST, ALK PHOS)2020-12-25 13:54:05 Test Item Value Reference Range Interpretation Comments TOTAL BILI (test code = 9099046188) 0.5 mg/dL 0.1-1.1 BILI UNCON (test code = 5573391462) 0.4 mg/dL 0.1-1.1 BILI CONJ (test code = 2553334457) 0.0 mg/dL 0.0-0.3 T PROTEIN (test code = 5240129103) 6.9 g/dL 6.3-8.2 ALBUMIN (test code = 6973724153) 4.2 g/dL 3.5-5.0 ALK PHOS (test code = 8882288958) 153 U/L 34-122 H ALTv (test code = 1742-6) 15 U/L 5-50 AST(SGOT) (test code = 7111966863) 19 U/L 13-40 Lab Interpretation (test code = Abnormal 04692-1) [facility] DistrictLipase Oxsgm7369-76-01 13:54:05 Test Item Value Reference Range Interpretation Comments LIPASE (test code = 6826709477) 100 U/L 0-220 Lab Interpretation (test code = Normal 84830-5) [facility] DistrictCOVID-19 (ID NOW RAPID TESTING)2020-12-25 13:52:05 Test Item Value Reference Range Interpretation Comments SARS-CoV-2 Rapid ID NOW Not Detected Not Detected (test code = 35631-5) MAXWELL (test code = MAXWELL) ID NOW COVID-19 Assay is an isothermal nucleic acid amplification test intended for the qualitative detection of nucleic acid from SARS-CoV-2 viral RNA in nasopharyngeal (SCOUT LEASER) specimens. It is used under Emergency Use [...] indicated. Lab Interpretation Normal (test code = 42168-7) [facility] DistrictCBC with Hyjgldduetui5067-76-60 13:36:42 Test Item Value Reference Range Interpretation Comments WBC (test code = See_Comment [Automated 3690-2) message] The sy stem which generated this result transmitted reference range : 4.20 - 10.70 10*3/?L. The reference range was not used to interpret this result as normal/abnormal . RBC (test code = See_Comment [Automated 419-8) message] The sy stem which generated this [...] (test code = 37.2 fL 38.5-51.6 L 34288-6) RDW-CV (test code = 12.3 % 12.1-15.4 788-0) PLT (test code = See_Comment [Automated 777-3) message] The sy stem which generated this result transmitted reference range : 150 - 328 10*3/ ?L. The reference r marissa was not used to interpret this result as normal/abnormal . MPV (test code = 11.0 fL 9.8-13.0 65057-7) NRBC/100 WBC (test See_Comment [Automat ed code = [id number]) message] The system which generated this result transmitted reference range : 0.0 - 10.0 /100 WBCs. The refer ence range was not u sed to interpret th is result as normal/abnormal . NRBC x10^3 (test code <0.01 See_Comment [Auto mated = [id number]) message] The s ystem which generated this result transmitted reference range : 10*3/?L. The reference range was not used to interpret this result as normal/abnormal . GRAN MAT (NEUT) % 66.6 % (test code = 770-8) IMM GRAN % (test code 0.40 % = 0361856059) LYMPH % (test code = 24.9 % 736-9) MONO % (test code = 6.9 % 5905-5) EOS % (test code = 0.9 % 713-8) BASO % (test code = 0.3 % 706-2) GRAN MAT x10^3(ANC) 4.55 10*3/uL 1.99-6.95 (test code = 5996423534) IMM GRAN x10^3 (test 0.03 10*3/uL 0.00-0.06 code = 1014563527) LYMPH x10^3 (test code 1.70 10*3/uL 1.09-3.23 = 731-0) MONO x10^3 (test code 0.47 10*3/uL 0.36-1.02 = 742-7) EOS x10^3 (test code = 0.06 10*3/uL 0.06-0.53 711-2) BASO x10^3 (test code <0.03 0.01-0.09 = 704-7) Lab Interpretation Abnormal (test code = 42115-8) [facility] 2020-03-28 14:16:00 Test Item Value Reference Range Interpretation Comments SARS-COV2/RT-PCR (test code Positive Not Detected, Negative, AA = [id number]) See external report for linked test SARS-COV-2 PERFORMING LAB [facility] (test code = 0712553) Results are for the detection of SARS-CoV-2 [...] copies/mL.This SARS CoV-2 test is a rapid, swgc-ivgoXS-RIE test intended for the qualitative detection of [...] 564(g) of the Act.Fact Sheet for Healthcare Providers:https://www.[employer]ur[employer]/ Documents/Xpert%20Xpress%20SARS%20CoV-2/Fact%20Sheets/302-3802%71NXBC-IMB-0%20HE ALTHCARE%20PROVIDERS%20FACT%20SHEET.pdfFact Sheet for Healthcare Patients:https://www.Zurff/Documents/Xpert%20Xpress %20SARS%20CoV-2/Fact%20Sheets/302-3801%66BYPH-RJG-8%20PATIENT%20FACT%20SHEET.pdf Performing Laboratory:[place] [address] [address], [place] [address]KENF-XCOQKJJ [id number] 14:00:00 Test Item Value Reference Range Interpretation Comments POC-GLUCOSE METER 172 mg/dL 70-110 H TESTED AT [place] [address] ([facility]) (test code = ONIEL Thorne [facility] 1538) [address] POCT-GLUCOSE [id number] 08:19:00 Test Item Value Reference Range Interpretation Comments POC-GLUCOSE METER 145 mg/dL 70-110 H TESTED AT [place] [address] ([facility]) (test code = ONIEL Thorne [facility] 1538) [address] POCT-GLUCOSE [id number] 21:45:00 Test Item Value Reference Range Interpretation Comments POC-GLUCOSE METER 260 mg/dL 70-110 H TESTED AT [place] [address] ([facility]) (test code = ONIEL Thorne [facility] 1538) [address] POCT-GLUCOSE [id number] 16:53:00 Test Item Value Reference Range Interpretation Comments POC-GLUCOSE METER 149 mg/dL 70-110 H TESTED AT [place] [address] ([facility]) (test code = ONIEL Thorne [facility] 1538) [address] POCT-GLUCOSE [id number] 12:19:00 Test Item Value Reference Range Interpretation Comments POC-GLUCOSE METER 141 mg/dL 70-110 H TESTED AT [place] [address] ([facility]) (test code = ONIEL Thorne [facility] 1538) [address] POCT-GLUCOSE [id number] 07:38:00 Test Item Value Reference Range Interpretation Comments POC-GLUCOSE METER 127 mg/dL 70-110 H TESTED AT [facility] 6720 (BEAKER) (test code = ONIEL [place] 1538) [address] BASIC METABOLIC [id number] 04:59:00 Test Item Value Reference Range Interpretation [...] PATIEN TS. CBC W/PLT COUNT & AUTO [id number] 04:28:00 Test Item Value Reference Range Interpretation [...] PERCENT (BEAKER) (test code = 2801) POCT-GLUCOSE [id number] 22:48:00 Test Item Value Reference Range Interpretation Comments POC-GLUCOSE METER 133 mg/dL 70-110 H [facility] [place] [address] [facility] (test code = ONIEL [place] 1538) [address] POCT-GLUCOSE [id number] 18:05:00 Test Item Value Reference Range Interpretation Comments POC-GLUCOSE METER 167 mg/dL 70-110 H TESTED AT [place] [address] ([facility]) (test code = ONIEL [place] 1538) [address] POCT-GLUCOSE [id number] 11:51:00 Test Item Value Reference Range Interpretation Comments POC-GLUCOSE METER 142 mg/dL 70-110 H [facility] AT [place] [address] [facility] (test code = ONIEL [place] 1538) [address] POCT-GLUCOSE [id number] 07:48:00 Test Item Value Reference Range Interpretation Comments POC-GLUCOSE METER 138 mg/dL 70-110 H TESTED AT [facility] 67[address] (BEAKER) (test code = ONIEL [place] 1538) [address] BASIC METABOLIC [id number] 06:56:00 Test Item Value Reference Range Interpretation [...] APPLICABLE FOR DIALYSIS PATIEN TS. BASIC METABOLIC [id number] 06:50:00 Test Item Value Reference Range Interpretation [...] PATIEN TS. CBC W/PLT COUNT & AUTO [id number] 06:34:00 Test Item Value Reference Range Interpretation [...] = 2801) CBC W/PLT COUNT & AUTO [id number] 06:33:00 Test Item Value Reference Range Interpretation [...] LYMPHOCYTES ABSOLUTE COUNT 2.20 K/ L 1.32-3.57 ([facility]) (test code = 414) MONOCYTES ABSOLUTE COUNT (AKER) 0.86 K/ L 0.30-0.82 H (test code = 415) EOSINOPHILS ABSOLUTE COUNT 0.02 K/ L 0.04-0.54 L (AKER) (test code = 416) BASOPHILS ABSOLUTE COUNT ([facility]) 0.02 K/ L 0.01-0.08 (test code = 417) IMMATURE GRANULOCYTES-RELATIVE 0 % 0-1 PERCENT ([facility]) (test code = 2801) POCT-GLUCOSE [id number] 21:02:00 Test Item Value Reference Range Interpretation Comments POC-GLUCOSE METER 232 mg/dL 70-110 H TESTED AT [place] [address] ([facility]) (test code = BANNERSURESH Thorne [facility] 1538) [address] POCT-GLUCOSE [id number] 17:47:00 Test Item Value Reference Range Interpretation Comments POC-GLUCOSE METER 278 mg/dL 70-110 H TESTED AT [place] [address] ([facility]) (test code = BANNERSURESH Thorne [facility] 1538) [address] POCT-GLUCOSE [id number] 13:08:00 Test Item Value Reference Range Interpretation Comments POC-GLUCOSE METER 307 mg/dL 70-110 H TESTED AT [place] [address] ([facility]) (test code = BANNERSURESH Thorne [facility] 1538) [address] POCT-GLUCOSE [id number] 09:05:00 Test Item Value Reference Range Interpretation Comments POC-GLUCOSE METER 274 mg/dL 70-110 H TESTED AT [place] [address] ([facility]) (test code = BANNERSURESH Thorne [facility] 1538) [address]"
[2023-07-05 15:25] LABS: Hematocrit 33.5 % (39.6-49.0); Lymphocytes % 13.2 % (15.3-44.8); MCV 87.5 fL (80-100); MPV 8.3 fL (7.6-11.3); Platelets 229 thou/uL (152-406); RBC Red Blood Cell Count 3.82 M/uL (4.33-5.43)
[2023-07-05 15:56] LABS: Potassium 4.4 mEq/L (3.5-5.1)
[2023-07-05 16:16] LABS: Troponin High Sensitivity 103.1 pg/mL (<58.9)
--- NOTE | 2023-07-05 16:16 | RAD REPORT ---
EXAM DESCRIPTION: RADChest Single View07/05/2023 3:39 pm CLINICAL HISTORY: DYSPNEA COMPARISON: Chest Single View dated 06/21/2023; Chest Single View dated 10/31/2022; Chest Single View dated 07/17/2022; Chest Single View dated 05/20/2022 TECHNIQUE: Portable AP view of the chest. FINDINGS: The lungs show no focal consolidation. Central interstitial prominence, stable in degree. No pneumothorax or effusion. Stable cardiomegaly. Mediastinal contours are unremarkable. IMPRESSION: Stable findings as above. No other acute pulmonary process.
--- NOTE | 2023-07-05 16:37 | ER ---
Nurse's Notes [facility] Name: Sylvain Veronica Age: 72 yrs Sex: Male : 1950 Arrival Date: 07/05/2023 Time: 13:38 Bed 8 Private MD: Austen Mott T Diagnosis: Subsequent non-ST elevation (NSTEMI) myocardial infarction;Acute on chronic combined systolic (congestive) and diastolic (congestive) heart failure;Chronic kidney disease, unspecified Presentation: 07/05 14:22 Coronavirus screen: Vaccine status: Patient reports receiving the 2nd dose of the covid kd3 vaccine. Ebola Screen: No symptoms or risks identified at this time. Initial Sepsis Screen: Does the patient meet any 2 criteria? No. Patient's initial sepsis screen is negative. Does the patient have a suspected source of infection? No. Patient's initial sepsis screen is negative. Risk Assessment: Do you want to hurt yourself or someone else? Patient reports no desire to harm self or others. Onset of symptoms was July 05, 2023. 14:22 Method Of Arrival: Ambulatory kd3 14:22 Acuity: JACKIE 3 kd3 14:23 Chief complaint: Patient states: I started having shortness of breath today. I got my kd3 appendix removed recently. I am not on any pain medications. My shortness of breath has improved but i still feel a little bit of shortness of breath with dizziness. Triage Assessment: 14:22 General: Appears in no apparent distress. Behavior is calm, cooperative. Pain: Denies kd3 pain. Respiratory: Reports shortness of breath at rest Onset: The symptoms/episode began/occurred gradually, the patient has moderate shortness of breath. Historical: - Allergies: 14:22 No Known Allergies; kd3 - Immunization history:: Adult Immunizations up to date. - Social history:: Smoking status: Patient denies any tobacco usage or history of. Screenin:30 [facility] ED Fall Risk Assessment (Adult) History of falling in the last 3 months, kc6 including since admission No falls in past 3 months (0 pts) Confusion or Disorientation No (0 pts) Intoxicated or Sedated No (0 pts) Impaired Gait No (0 pts) Mobility Assist Device Used No (0 pt) Altered Elimination No (0 pt) Score/Fall Risk Level 0 - 2 = Low Risk. Abuse screen: Denies threats or abuse. Denies injuries from another. Nutritional screening: No deficits noted. Tuberculosis screening: No symptoms or risk factors identified. Assessment: 16:30 General: Appears in no apparent distress. comfortable, Behavior is calm, cooperative, kc6 appropriate for age. Pain: Complains of pain in abdomen. Neuro: Level of Consciousness is awake, alert, obeys commands, Oriented to person, place, time, situation, Appropriate for age. Cardiovascular: Denies chest pain, Heart tones S1 S2 present Capillary refill < 3 seconds Rhythm is sinus rhythm. Respiratory: Reports shortness of breath Airway is patent Trachea midline Respiratory effort is even, unlabored, Respiratory pattern is regular, symmetrical, Breath sounds are clear bilaterally. GI: Patient currently denies diarrhea, nausea, vomiting. : No signs and/or symptoms were reported regarding the genitourinary system. EENT: No signs and/or symptoms were reported regarding the EENT system. Derm: No signs and/or symptoms reported regarding the dermatologic system. Skin is intact, is healthy with good turgor, Skin is pink, warm \T\ dry. Musculoskeletal: No signs and/or symptoms reported regarding the musculoskeletal system. Circulation, motion, and sensation intact. Capillary refill < 3 seconds, Range of motion: intact in all extremities. 17:30 Reassessment: Patient appears in no apparent distress at this time. No changes from kc6 previously documented assessment. Patient and/or family updated on plan of care and expected duration. Pain level reassessed. Patient is alert, oriented x 3, equal unlabored respirations, skin warm/dry/pink. 18:30 Reassessment: Patient appears in no apparent distress at this time. No changes from kc6 previously documented assessment. Patient and/or family updated on plan of care and expected duration. Pain level reassessed. Patient is alert, oriented x 3, equal unlabored respirations, skin warm/dry/pink. 19:25 General: Appears comfortable, Behavior is calm, cooperative. Pain: Complains of pain in ha1 abdomen Pain does not radiate. Pain currently is 3 out of 10 on a pain scale. Quality of pain is described as crampy. Neuro: Level of Consciousness is awake, alert, obeys commands, Oriented to person, place, time, situation. Cardiovascular: Patient's skin is warm and dry. Respiratory: Airway is patent Respiratory effort is even, unlabored, Respiratory pattern is regular, symmetrical. GI: Abdomen is round non-distended, Reports lower abdominal pain. Derm: Skin is moist, Skin is normal. Musculoskeletal: Circulation, motion, and sensation intact. 20:22 Reassessment: Patient and/or family updated on plan of care and expected duration. Pain ha1 level reassessed. Patient is alert, oriented x 3, equal unlabored respirations, skin warm/dry/pink. Vital Signs: 14:21 BP 137 / 85; Pulse 74; Resp 19; Temp 98.6(O); Pulse Ox 98% on R/A; Weight 88.45 kg; kd3 Height 5 ft. 10 in. ; 19:00 BP 145 / 78; Pulse 81; Resp 19; Pulse Ox 99% on R/A; ha1 20:00 BP 122 / 53; Pulse 83; Resp 19 S; Pulse Ox 99% on R/A; ha1 14:21 Body Mass Index 27.98 (88.45 kg, 177.8 cm) kd3 ED Course: 13:39 Patient arrived in ED. rg4 13:39 Austen Mott MD is Private Physician. rg4 14:22 Triage completed. kd3 14:23 Arm band placed on right wrist. kd3 14:28 Zacarias Alfaro PA is PHCP. jr8 14:28 Rogelio Warren MD is Attending Physician. jr8 15:41 XRAY Chest (1 view) In Process Unspecified. EDMS 16:30 Patient has correct armband on for positive identification. Placed in gown. Bed in low kc6 position. Call light in reach. Side rails up X2. Client placed on continuous cardiac and pulse oximetry monitoring. NIBP monitoring applied. lunchroom monitor on. 17:08 IV discontinued, intact, bleeding controlled, No redness/swelling at site. Pressure kc6 dressing applied, 20G RAC appears to be infiltrated. Missed attempt(s): 20 gauge in right wrist. Missed attempt(s): 20 gauge in left forearm. 18:32 spoke with annette at [facility]. bc6 19:00 Report given to Maddie Ortega RN \T\ Katrin Black RN. kc6 19:10 Pt accepted for transfer to [facility] RM: [id number] by Sukumar Arroyo per Annette Camacho. 19:30 EMS denied transport, no truck available. wm 19:40 [facility] accepted for transport with ETA \T\ 1999. 20:36 No provider procedures requiring assistance completed. Patient transferred, IV remains ha1 in place. 20:37 Provided Education on: need for transfer . ha1 Administered Medications: 17:59 Drug: Heparin (DVT/PE- Bolus per protocol) - HEParin IVP 80 units/kg IVP once; Max kc6 8,000 units {Co-Signature: patrick (Miriam Lorenzana RN).} Route: IVP; Site: left hand; 19:00 Follow up: Response: No adverse reaction kc6 18:00 Drug: Heparin (DVT/PE Drip) 18 units/kg/[place] - ([place] [address] units, D5W IV 500 ml) IV kc6 at per protocol Per protocol; Max initial rate 1800 units/hr {Co-Signature: ph (Miriam Lorenzana RN).} Route: IV; Rate: per protocol; Site: left hand; 20:13 Follow up: Response: No adverse reaction; IV Status: Infusion continued upon transfer jw7 20:11 Drug: Furosemide IVP 40 mg IVP once; give over 2 minutes Route: IVP; Site: left hand; jw7 20:13 Follow up: Response: No adverse reaction jw7 Medication: 20:37 VIS not applicable for this client. ha1 Outcome: 16:37 ER care complete, transfer ordered by MD. morillo 20:36 Transferred by ground EMS to [facility], Note: [place] [id number] [address] 20:36 Condition: stable 20:36 Instructed on the need for transfer, Demonstrated understanding of instructions, 20:38 Patient left the ED. ha1 Signatures: Dispatcher [employer] EDMS Zacarias Alfaro PA PA jr8 Kandis Rodriguez4 Arlet Blackwood Malissa Young RN RN kd3 Katrin Black RN CHUCK jw7 Maddie Ortega RN RN ha1 Xuan Calhoun, CHUCK RN kc6 Mariam Viveros 6 Miriam Lorenzana RN ph Corrections: (The following items were deleted from the chart) 19:49 19:47 Pt accepted for transfer to [facility] RM: [id number] by Sukumar Arroyo [facility]
--- NOTE | 2023-07-05 16:37 | EDPHYS ---
Physician Documentation [facility] Name: Sylvain Veronica Age: 72 yrs Sex: Male : 1950 Arrival Date: 07/05/2023 Time: 13:38 Bed 8 Private MD: Austen Mott T ED Physician Rogelio Warren HPI: 07/05 15:30 This 72 yrs old Male presents to ER via Ambulatory with complaints of jr8 Shortness Of Breath. 15:30 The patient has shortness of breath at rest. Onset: The symptoms/episode began/occurred jr8 acutely, today. The patient's shortness of breath has no apparent modifying factors. Associated signs and symptoms: The patient has no apparent associated signs or symptoms. Severity of symptoms: At their worst the symptoms were mild in the emergency department the symptoms are unchanged. The patient has not experienced similar symptoms in the past. The patient has been recently seen by a physician:. Patient had appendectomy last week and has been doing well since then other than mild constipation. While at rest today had acute onset shortness of breath. History of congestive heart failure secondary to COVID. Has been on Entresto since then and doing well. Denies any other symptoms today.. Historical: - Allergies: 14:22 No Known Allergies; kd3 - Immunization history:: Adult Immunizations up to date. - Social history:: Smoking status: Patient denies any tobacco usage or history of. ROS: 15:36 Eyes: Negative for injury, pain, redness, and discharge, ENT: Negative for injury, jr8 pain, and discharge, Neck: Negative for injury, pain, and swelling, Cardiovascular: Negative for chest pain, palpitations, and edema, Abdomen/GI: Negative for abdominal pain, nausea, vomiting, diarrhea, and constipation, Back: Negative for injury and pain, MS/Extremity: Negative for injury and deformity, Skin: Negative for injury, rash, and discoloration, Neuro: Negative for headache, weakness, numbness, tingling, and seizure, 15:36 Respiratory: Positive for shortness of breath, Negative for cough, dyspnea on exertion, hemoptysis, sputum production, wheezing, Exam: 15:36 Constitutional: This is a well developed, well nourished patient who is awake, alert, jr8 and in no acute distress. Cardiovascular: Regular rate and rhythm with a normal S1 and S2. No gallops, murmurs, or rubs. Normal PMI, no JVD. No pulse deficits. Respiratory: Lungs have equal breath sounds bilaterally, clear to auscultation and percussion. No rales, rhonchi or wheezes noted. No increased work of breathing, no retractions or nasal flaring. Abdomen/GI: Soft, non-tender, with normal bowel sounds. No distension or tympany. No guarding or rebound. No evidence of tenderness throughout. Skin: Warm, dry with normal turgor. Normal color with no rashes, no lesions, and no evidence of cellulitis. MS/ Extremity: Pulses equal, no cyanosis. Neurovascular intact. Full, normal range of motion. Neuro: Awake and alert, GCS 15, oriented to person, place, time, and situation. Motor strength 5/5 in all extremities. Sensory grossly intact. Vital Signs: 14:21 BP 137 / 85; Pulse 74; Resp 19; Temp 98.6(O); Pulse Ox 98% on R/A; Weight 88.45 kg; kd3 Height 5 ft. 10 in. ; 19:00 BP 145 / 78; Pulse 81; Resp 19; Pulse Ox 99% on R/A; ha1 20:00 BP 122 / 53; Pulse 83; Resp 19 S; Pulse Ox 99% on R/A; ha1 14:21 Body Mass Index 27.98 (88.45 kg, 177.8 cm) kd3 MDM: 14:28 Patient medically screened. jr8 16:34 Differential diagnosis: CHF exacerbation, Myocardial Infarction pneumonia, pulmonary jr8 edema, Pulmonary Embolism Unstable Angina. Data interpreted: property assessment monitor: rate is 76 beats/min, rhythm is normal sinus rhythm, Pulse oximetry: on room air is 98 %. Interpretation: normal. Data reviewed: vital signs, nurses notes, lab test result(s), EKG, radiologic studies, plain films. Counseling: I had a detailed discussion with the patient and/or guardian regarding the historical points, exam findings, and any diagnostic results supporting the discharge/admit diagnosis, lab results, radiology results, the need to transfer to another facility, for higher level of care, [facility] does not immediately have the required specialist. ED course: Patient has elevated troponin and D-dimer with recent surgery. Concern for pulmonary embolism versus NSTEMI. Placing patient on heparin drip and transferring for V/Q nuclear scan and possible cath depending on what cardiology and critical care pulmonology decide at transferring facility. Patient has elevated renal function is not a candidate for CT angiography PE study at this time.. 07/05 14:28 Order name: Basic Metabolic Panel; Complete Time: 16:26 07/05 14:28 Order name: CBC with Diff; Complete Time: 15:46 07/05 14:28 Order name: D-Dimer; Complete Time: 15:46 07/05 14:28 Order name: NT PRO-BNP; Complete Time: 16:26 07/05 14:28 Order name: Troponin HS; Complete Time: 16:26 07/05 16:45 Order name: Ptt, Activated; Complete Time: 18:13 07/05 14:28 Order name: XRAY Chest (1 view); Complete Time: 16:16 07/05 14:28 Order name: EKG; Complete Time: 14:29 07/05 14:28 Order name: Cardiac monitoring; Complete Time: 16:44 07/05 14:28 Order name: EKG - Nurse/Tech; Complete Time: 15:55 07/05 14:28 Order name: IV Saline Lock; Complete Time: 15:55 07/05 14:28 Order name: Labs collected and sent; Complete Time: 15:55 07/05 14:28 Order name: O2 Per Protocol; Complete Time: 16:44 07/05 14:28 Order name: O2 Sat Monitoring; Complete Time: 16:44 Administered Medications: 17:59 Drug: Heparin (DVT/PE- Bolus per protocol) - HEParin IVP 80 units/kg IVP once; Max kc6 8,000 units {Co-Signature: patrick (Miriam Lorenzana RN).} Route: IVP; Site: left hand; 19:00 Follow up: Response: No adverse reaction kc6 18:00 Drug: Heparin (DVT/PE Drip) 18 units/kg/[place] - ([place] [address] units, D5W IV 500 ml) IV kc6 at per protocol Per protocol; Max initial rate 1800 units/hr {Co-Signature: patrick (Miriam Lorenzana RN).} Route: IV; Rate: per protocol; Site: left hand; 20:13 Follow up: Response: No adverse reaction; IV Status: Infusion continued upon transfer jw7 20:11 Drug: Furosemide IVP 40 mg IVP once; give over 2 minutes Route: IVP; Site: left hand; jw7 20:13 Follow up: Response: No adverse reaction jw7 Disposition Summary: 07/05/23 16:37 Transfer Ordered Notes: Reason: Higher level of care jr8 Condition: Stable jr8 Problem: new jr8 Symptoms: are unchanged jr8 Transfer Location: Other Acute Care Facility(07/05/23 18:49) jr8 Accepting Physician: Dr. Amos (07/05/23 20:38) ha1 Diagnosis - Subsequent non-ST elevation (NSTEMI) myocardial infarction jr8 - Acute on chronic combined systolic (congestive) and diastolic (congestive) heart jr8 failure - Chronic kidney disease, unspecified jr8 Forms: - Medication Reconciliation Form jr8 - SBAR form jr8 Signatures: Dispatcher [employer] EDND Zacarias Alfaro PA PA jr8 Malissa Young RN RN kd3 Katrin Black RN RN jw7 Maddie Ortega RN RN ha1 Xuan Calhoun RN RN kc6 Miriam Lorenzana RN ph Corrections: (The following items were deleted from the chart) 15:37 15:30 Patient had appendectomy last week and has been doing well since then other than jr8 mild constipation. While at rest today had acute onset shortness of breath. History of congestive heart failure secondary to COVID.. jr8 17:03 15:47 Chest For PE Angio+CT.RAD.BRZ ordered. EDND EDMS 18:49 16:37 Fermin jr8 jr8 18:49 16:37 [facility] jr8 jr8 20:38 18:49 Dr. Amos jr8 ha1
[2023-07-05] MEDS ORDERED: HEPARIN 5000 UNIT/ML 1 ML VIAL ONE ×2 (17:55→18:04)
[2023-07-05] MEDS ORDERED: HEPARIN/D5W 25,000 UNIT/500 ML BAG IV ONE (17:55)
[2023-07-05] MEDS ORDERED: FUROSEMIDE 40 MG/4 ML VIAL ONE (20:19)
[2023-07-05 20:43] VITALS: TEMP 98.6
[2023-07-05 20:44] VITALS: O2SAT 99
[2023-07-05 20:45] VITALS: BP 122/53
--- NOTE | 2023-07-07 14:13 | EKG ---
Test Date: 2023-07-05 Test Time: 16:03:44 Mountain Bike Guide: LEO MEASUREMENT RESULTS: Intervals: Rate: 78 NE: 158 QRSD: 92 QT: 366 QTc: 417 [place]: P: 50 NE: 158 QRS: 53 T: 201 INTERPRETIVE STATEMENTS: Normal sinus rhythm ST & T wave abnormality, consider inferolateral ischemia Abnormal ECG Compared to ECG 06/22/2023 01:05:29 ST (T wave) deviation now present Possible ischemia now present Myocardial infarct finding no longer present Electronically Signed On 07-07-23 14:08:07 CRIPPLE CUTTER by Arie Bragg
== END 2023-07-05 20:38 ==
LOC: ER 13:38
DX: I22.2 Subsequent non-ST elevation (NSTEMI) myocardial infarction (principal); I21.9 Acute myocardial infarction, unspecified; I50.43 Acute on chronic combined systolic (congestive) and diastolic (congestive) heart failure; N18.9 Chronic kidney disease, unspecified
CPT/HCPCS: 96365; 93005; 85025; 80048; 36415; 85379; 85730; 84484; 83880; 71045; 96375; 99285; 96366; J1644 ×2; J1940

== ENCOUNTER 2023-08-05 22:34 | Emergency (ER) | payer OTHER ==
[2023-08-05] MEDS ORDERED: cloNIDine HCL 0.1 MG TAB ONE (23:23)
[2023-08-06 00:04] LABS: Albumin 3.3 g/dL (3.4-5.0); Bilirubin Total 0.3 mg/dL (0.2-1.0); Potassium 3.6 mEq/L (3.5-5.1); Protein, Total 7.2 g/dL (6.4-8.2)
[2023-08-06 00:06] LABS: Absolute Lymphocytes (CBC) 1.6 K/uL (0.7-4.9); Hematocrit 28.1 % (39.6-49.0); MPV 8.5 fL (7.6-11.3); Platelets 185 thou/uL (152-406); RBC Red Blood Cell Count 3.23 M/uL (4.33-5.43)
[2023-08-06 00:07] LABS: Troponin High Sensitivity 95.7 pg/mL (<58.9)
--- NOTE | 2023-08-06 02:49 | EDPHYS ---
Physician Documentation [facility] Name: Sylvain Veronica Age: 72 yrs Sex: Male : 1950 Arrival Date: 08/05/2023 Time: 22:34 Bed 7 Private MD: Austen Mott T ED Physician Ravinder Cutler HPI: 08/05 23:17 This 72 yrs old Male presents to ER via Ambulatory with complaints of High rt Blood Pressure, Abdominal Pain, Nausea. 23:17 Patient presents to the ED with concerns for hypertension. States that the blood rt pressure was in the 170s earlier, took metoprolol at home, so went down to the 150s, again return to the 170s. Denies chest pain, shortness of breath. He did report a mild lower abdominal pain with some nausea. This did resolve with Pepto, denies any abdominal symptoms currently. Symptoms are mild in severity, no other aggravating alleviating factors.. Historical: - Allergies: 23:01 No Known Allergies; pf1 - PMHx: 23:01 Congestive heart failure; Systolic; Diabetes - IDDM; Hypertensive disorder; kidney pf1 disease; CKD 3; - PSHx: 23:01 cardiac stents; Cholecystectomy; Appendectomy; pf1 - Immunization history:: Adult Immunizations up to date, Client reports receiving the 2nd dose of the Covid vaccine, Moderna Last tetanus immunization: > 10 years ago Flu vaccine is not up to date. - Social history:: Smoking status: Patient denies any tobacco usage or history of. Patient/guardian denies using alcohol, the patient reports quitting approximately 2 years ago, Patient denies any drug use. - Family history:: not pertinent. ROS: 23:17 Constitutional: Negative for fever, chills, and weight loss, Cardiovascular: Negative rt for chest pain, palpitations, and edema, Respiratory: Negative for shortness of breath, cough, wheezing, and pleuritic chest pain, MS/Extremity: Negative for injury and deformity, Skin: Negative for injury, rash, and discoloration, Neuro: Negative for headache, weakness, numbness, tingling, and seizure, Psych: Negative for depression, anxiety, suicide ideation, homicidal ideation, and hallucinations, 23:17 Abdomen/GI: Positive for abdominal pain, Negative for nausea and vomiting, 23:17 Abdomen/GI: Positive for abdominal pain, nausea, Negative for Exam: 23:17 Constitutional: This is a well developed, well nourished patient who is awake, alert, rt and in no acute distress. Head/Face: Normocephalic, atraumatic. Chest/axilla: Normal chest wall appearance and motion. Nontender with no deformity. No lesions are appreciated. Cardiovascular: Regular rate and rhythm with a normal S1 and S2. No gallops, murmurs, or rubs. Normal PMI, no JVD. No pulse deficits. Respiratory: Lungs have equal breath sounds bilaterally, clear to auscultation and percussion. No rales, rhonchi or wheezes noted. No increased work of breathing, no retractions or nasal flaring. Abdomen/GI: Soft, non-tender, with normal bowel sounds. No distension or tympany. No guarding or rebound. No evidence of tenderness throughout. Skin: Warm, dry with normal turgor. Normal color with no rashes, no lesions, and no evidence of cellulitis. MS/ Extremity: Pulses equal, no cyanosis. Neurovascular intact. Full, normal range of motion. Neuro: Awake and alert, GCS 15, oriented to person, place, time, and situation. Cranial nerves II-XII grossly intact. Motor strength 5/5 in all extremities. Sensory grossly intact. Cerebellar exam normal. Normal gait. Psych: Awake, alert, with orientation to person, place and time. Behavior, mood, and affect are within normal limits. 23:17 ECG was reviewed by the Attending Physician. Vital Signs: 22:41 BP 175 / 97; Pulse 90; Resp 16; Temp 97.1; Pulse Ox 100% ; Weight 85.73 kg; Height 5 pf1 ft. 10 in. ; Pain 09/05; 08/06 00:00 BP 142 / 77; Pulse 74; Resp 16; Pulse Ox 98% on R/A; jb4 01:37 BP 147 / 82; Pulse 79; Resp 16; Pulse Ox 100% on R/A; jb4 02:00 BP 143 / 95; Pulse 64; Resp 16; Pulse Ox 97% on R/A; jb4 03:00 BP 143 / 95; Pulse 68; Resp 16; Pulse Ox 98% ; vc1 08/05 22:41 Body Mass Index 27.12 (85.73 kg, 177.8 cm) pf1 08/05 22:41 Pain Scale: Adult pf1 MDM: 08/05 22:56 Patient medically screened. rt 08/06 03:21 Differential diagnosis: Hypertension, ACS, renal failure. Data reviewed: vital signs, rt nurses notes, lab test result(s), EKG, radiologic studies. Consideration of Admission/Observation Escalation of care including admission/observation considered. It is noted that the patient has an elevated troponin, creatinine. Reviewed prior labs, creatinine is at baseline. Patient does seem to have a baseline troponin leak to the 90s. Suspect this is multifactorial to include his congestive heart failure, renal disease. He has no chest pain. Troponin was repeated, no significant dynamic changes. As the troponin is at baseline, is not increasing, do not believe that he requires further workup in the hospital for this. I discussed this at length with the patient.. Test considered but Not performed: CT: No focal abdominal tenderness, denies any abdominal symptoms currently, CT scan is not indicated. Counseling: I had a detailed discussion with the patient and/or guardian regarding the historical points, exam findings, and any diagnostic results supporting the discharge/admit diagnosis, lab results, the need for outpatient follow up, to return to the emergency department if symptoms worsen or persist or if there are any questions or concerns that arise at home. Response to treatment: the patient's symptoms have markedly improved after treatment. 08/05 23:00 Order name: CBC with Diff; Complete Time: 00:10 rt 08/05 23:00 Order name: CMP; Complete Time: 00:10 rt 08/05 23:00 Order name: Lipase; Complete Time: 00:10 rt 08/05 23:00 Order name: Troponin High Sensitivity; Complete Time: 00:10 rt 08/06 00:32 Order name: Troponin High Sensitivity; Complete Time: 02:47 rt 08/05 23:00 Order name: EKG; Complete Time: 23:02 rt 08/05 23:00 Order name: EKG - Nurse/Tech; Complete Time: 23:01 rt EC/10 23:17 Rate is 82 beats/min. Rhythm is regular, Normal Sinus Rhythm with No ectopy. QRS [place] rt is Normal. [place] interval is normal. QRS interval is normal. QT interval is normal. No Q waves. Clinical impression: NSR w/ Non-specific ST/T Changes. Administered Medications: 23:00 CANCELLED (in error): clonazepam1 mg PO once rt 23:12 Drug: cloNIDine PO 0.1 mg PO once Route: PO; jb4 Disposition Summary: 08/06/23 02:49 Discharge Ordered Notes: Location: Home rt Problem: new rt Symptoms: have improved rt Condition: Stable rt Diagnosis - Essential (primary) hypertension rt Followup: rt - With: Austen Mott MD - When: 2 - 3 days - Reason: Discharge Instructions: - Discharge Summary Sheet rt - Hypertension, Adult rt Forms: - Medication Reconciliation Form rt - Thank You Letter rt - Antibiotic Education rt - Prescription Opioid Use rt - Patient Portal Instructions rt - Leadership Thank You Letter rt Signatures: Dispatcher [employer] EDIA Wai Harper RN RN jb4 Ravinder Cutler MD MD rt Beatrice Holloway RN RN pf1 Corrections: (The following items were deleted from the chart) 23:00 23:00 clonazePAM PO 1 mg PO once ordered. rt rt
--- NOTE | 2023-08-06 02:49 | ER ---
Nurse's Notes [facility] Name: Sylvain Veronica Age: 72 yrs Sex: Male : 1950 Arrival Date: 08/05/2023 Time: 22:34 Bed 7 Private MD: Austen Mott T Diagnosis: Essential (primary) hypertension Presentation: 08/05 22:41 Chief complaint: Patient states: elevated BP 175 systolic with dizziness,onset this pf1 afternoon with lower abdominal pain of 1 at this time, onset yesterday, Patient stated took Pepto Bismol at 2030 that decreased the pain. Patient stated took Metoprolol 25 mg at 2030. 22:41 Coronavirus screen: Vaccine status: Patient reports receiving the 2nd dose of the covid pf1 vaccine. Client denies travel out of the [place] in the last 14 days. At this time, the client does not indicate any symptoms associated with coronavirus-19. Ebola Screen: Patient negative for fever greater than or equal to 101.5 degrees Fahrenheit, and additional compatible Ebola Virus Disease symptoms. Initial Sepsis Screen: Does the patient meet any 2 criteria? No. Patient's initial sepsis screen is negative. Does the patient have a suspected source of infection? No. Patient's initial sepsis screen is negative. Risk Assessment: Do you want to hurt yourself or someone else? Patient reports no desire to harm self or others. 22:41 Acuity: JACKIE 3 pf1 22:57 Method Of Arrival: Ambulatory pf1 Historical: - Allergies: 23:01 No Known Allergies; pf1 - PMHx: 23:01 Congestive heart failure; Systolic; Diabetes - IDDM; Hypertensive disorder; kidney pf1 disease; CKD 3; - PSHx: 23:01 cardiac stents; Cholecystectomy; Appendectomy; pf1 - Immunization history:: Adult Immunizations up to date, Client reports receiving the 2nd dose of the Covid vaccine, Moderna Last tetanus immunization: > 10 years ago Flu vaccine is not up to date. - Social history:: Smoking status: Patient denies any tobacco usage or history of. Patient/guardian denies using alcohol, the patient reports quitting approximately 2 years ago, Patient denies any drug use. - Family history:: not pertinent. Screenin:34 [facility] ED Fall Risk Assessment (Adult) History of falling in the last 3 months, jb4 including since admission No falls in past 3 months (0 pts) Confusion or Disorientation No (0 pts) Score/Fall Risk Level 0 - 2 = Low Risk Oriented to surroundings, Maintained a safe environment. Abuse screen: Denies threats or abuse. Nutritional screening: No deficits noted. Tuberculosis screening: No symptoms or risk factors identified. Assessment: 23:00 General: Appears in no apparent distress. comfortable, Behavior is calm, cooperative. jb4 Pain: Complains of pain in abdomen Pain does not radiate. Pain currently is 1 out of 10 on a pain scale. Neuro: Level of Consciousness is awake, alert, obeys commands, Oriented to person, place, time, situation. Cardiovascular: Patient's skin is warm and dry. Respiratory: Airway is patent Respiratory effort is even, unlabored, Respiratory pattern is regular, symmetrical. GI: Abdomen is flat, non-distended. : No signs and/or symptoms were reported regarding the genitourinary system. EENT: No signs and/or symptoms were reported regarding the EENT system. Derm: Skin is intact, Skin is pink, warm \T\ dry. Musculoskeletal: Circulation, motion, and sensation intact. Range of motion: intact in all extremities. 08/06 00:00 Reassessment: Patient appears in no apparent distress at this time. Patient and/or jb4 family updated on plan of care and expected duration. Pain level reassessed. Patient is alert, oriented x 3, equal unlabored respirations, skin warm/dry/pink. 01:00 Reassessment: Patient appears in no apparent distress at this time. Patient and/or jb4 family updated on plan of care and expected duration. Pain level reassessed. Patient is alert, oriented x 3, equal unlabored respirations, skin warm/dry/pink. 02:00 Reassessment: Patient appears in no apparent distress at this time. Patient and/or jb4 family updated on plan of care and expected duration. Pain level reassessed. Patient is alert, oriented x 3, equal unlabored respirations, skin warm/dry/pink. 02:40 Reassessment: Patient appears in no apparent distress at this time. Patient and/or jb4 family updated on plan of care and expected duration. Pain level reassessed. Patient is alert, oriented x 3, equal unlabored respirations, skin warm/dry/pink. 03:05 Reassessment: Patient and/or family updated on plan of care and expected duration. Pain vc1 level reassessed. Patient is alert, oriented x 3, equal unlabored respirations, skin warm/dry/pink. Patient states feeling better. Patient states symptoms have improved. Vital Signs: 08/05 22:41 BP 175 / 97; Pulse 90; Resp 16; Temp 97.1; Pulse Ox 100% ; Weight 85.73 kg; Height 5 pf1 ft. 10 in. ; Pain 09/05; 08/06 00:00 BP 142 / 77; Pulse 74; Resp 16; Pulse Ox 98% on R/A; jb4 01:37 BP 147 / 82; Pulse 79; Resp 16; Pulse Ox 100% on R/A; jb4 02:00 BP 143 / 95; Pulse 64; Resp 16; Pulse Ox 97% on R/A; jb4 03:00 BP 143 / 95; Pulse 68; Resp 16; Pulse Ox 98% ; vc1 08/05 22:41 Body Mass Index 27.12 (85.73 kg, 177.8 cm) pf1 08/05 22:41 Pain Scale: Adult pf1 ED Course: 08/05 22:40 Patient arrived in ED. gm2 22:41 Austen Mott MD is Private Physician. gm2 22:42 Ravinder Cutler MD is Attending Physician. rt 23:01 Triage completed. pf1 23:10 Initial lab(s) drawn, by ED staff, sent to lab. Inserted saline lock: 20 gauge in right jb4 antecubital area, using aseptic technique. Blood collected. 23:33 Wai Harper, CHUCK is Primary Nurse. jb4 23:34 Patient has correct armband on for positive identification. Bed in low position. Call jb4 light in reach. Side rails up X 1. 23:34 Arm band placed on right wrist. vc1 08/06 02:49 Austen Mott MD is Referral Physician. rt 03:06 No provider procedures requiring assistance completed. IV discontinued, intact, vc1 bleeding controlled, No redness/swelling at site. Pressure dressing applied. 03:07 Provided Education on: Follow up with Dr. Mott. vc1 Administered Medications: 08/05 23:00 CANCELLED (in error): clonazepam1 mg PO once rt 23:12 Drug: cloNIDine PO 0.1 mg PO once Route: PO; jb4 Medication: 08/06 03:06 VIS not applicable for this client. vc1 Outcome: 02:49 Discharge ordered by . rt 03:06 Discharged to home ambulatory, vc1 03:06 Condition: good 03:06 Discharge instructions given to patient, Instructed on discharge instructions, follow up and referral plans. Demonstrated understanding of instructions, follow-up care, 03:07 Patient left the ED. vc1 Signatures: Wai Harper RN RN jb4 Michelle Desai RN RN vc1 Ravinder Cutler MD MD rt Beatrice Holloway RN RN pf1 Franci Maier 2
[2023-08-06 03:20] VITALS: TEMP 97.1
[2023-08-06 03:24] VITALS: BP 143/95; O2SAT 98
--- NOTE | 2023-08-07 13:47 | EKG ---
Test Date: 2023-08-05 Test Time: 22:53:42 Instructor Pilot: TIARA MEASUREMENT RESULTS: Intervals: Rate: 82 PA: 180 QRSD: 90 QT: 394 QTc: 460 Brewer: P: 42 PA: 180 QRS: 23 T: 89 INTERPRETIVE STATEMENTS: Normal sinus rhythm Possible Left atrial enlargement Anterior infarct, age undetermined Abnormal ECG Compared to ECG 07/05/2023 16:03:44 Myocardial infarct finding now present ST (T wave) deviation no longer present Possible ischemia no longer present Electronically Signed On 08-07-23 13:41:08 [employer] by Arie Bragg
== END 2023-08-06 03:07 | disposition home or self-care (01) ==
LOC: ER 22:34
DX: I10 Essential (primary) hypertension (principal); E11.22 Type 2 diabetes mellitus with diabetic chronic kidney disease; I13.0 Hypertensive heart and chronic kidney disease with heart failure and stage 1 through stage 4 chronic kidney disease, or unspecified chronic kidney disease; N18.9 Chronic kidney disease, unspecified; I50.9 Heart failure, unspecified; Z95.818 Presence of other cardiac implants and grafts
CPT/HCPCS: 36415; 80053; 83690; 84484; 85025; 93005; 99284

== ENCOUNTER 2023-08-09 04:44 | Emergency (ER) | payer OTHER ==
[2023-08-09 05:21] LABS: Absolute Lymphocytes (CBC) 1.3 K/uL (0.7-4.9); Hematocrit 32.9 % (39.6-49.0); Lymphocytes % 14.5 % (15.3-44.8); MCV 87.9 fL (80-100); MPV 8.6 fL (7.6-11.3); Platelets 212 thou/uL (152-406); RBC Red Blood Cell Count 3.74 M/uL (4.33-5.43)
[2023-08-09 05:22] LABS: Protime INR 1.07
[2023-08-09] MEDS ORDERED: FUROSEMIDE 40 MG/4 ML VIAL ONE (05:33)
[2023-08-09] MEDS ORDERED: NITROGLYCERIN 1 GM PKT TD ONE (05:33)
[2023-08-09 05:39] LABS: Albumin 3.3 g/dL (3.4-5.0); Bilirubin Direct 0.1 mg/dL (0-0.2); Bilirubin Indirect, Calculated 0.3 mg/dL (0.2-0.8); Bilirubin Total 0.4 mg/dL (0.2-1.0); Potassium 3.6 mEq/L (3.5-5.1); Protein, Total 7.6 g/dL (6.4-8.2)
[2023-08-09 05:50] LABS: Troponin High Sensitivity 124.9 pg/mL (<58.9)
[2023-08-09 05:53] LABS: SARS-COV-2 RT PCR NEGATIVE (NEGATIVE)
--- NOTE | 2023-08-09 06:00 | EDPHYS ---
Physician Documentation [facility] Name: Sylvain Veronica Age: 72 yrs Sex: Male : 1950 Arrival Date: 08/09/2023 Time: 04:44 Bed 6 Private MD: ED Physician Dashawn Rojas HPI: 08/09 04:56 This 72 yrs old Male presents to ER via Unassigned with complaints of sp4 Shortness Of Breath, Abdominal Pain, Cough, Runny Nose. 04:56 last visit here - : 08/05/2023 Time: 22:34 . sp4 05:59 9-year-old male with history of congestive heart failure, diabetes, hypertension, sp4 kidney disorder presents with acute onset of dyspnea starting at 3 AM today. Patient reported orthopnea denied any chest pain denied any leg swelling of his legs . Historical: - Allergies: 04:57 No Known Allergies; lg3 - Home Meds: 04:57 Entresto oral [Active]; Metoprolol Tartrate Oral [Active]; atorvastatin oral [Active]; lg3 - PMHx: 04:57 Congestive heart failure; Systolic; Diabetes - IDDM; Hypertensive disorder; kidney lg3 disease; CKD 3; - PSHx: 04:57 Appendectomy; cardiac stents; Cholecystectomy; lg3 - Immunization history:: Adult Immunizations up to date, Client reports receiving the 2nd dose of the Covid vaccine, Flu vaccine is not up to date. - Social history:: Smoking status: Patient denies any tobacco usage or history of. Patient/guardian denies using alcohol, street drugs. - Family history:: not pertinent. ROS: 05:59 Constitutional: Negative for fever, chills, and weight loss, sp4 05:59 All other systems are negative, Exam: 05:59 Constitutional: This is a well developed, well nourished patient who is awake, alert, sp4 ill appearing and pale appearing, non toxic Head/Face: Normocephalic, atraumatic. Eyes: Pupils equal round and reactive to light, extra-ocular motions intact. Lids and lashes normal. Conjunctiva and sclera are not injected. Cornea within normal limits. Periorbital areas with no swelling, redness, or edema. ENT: Nares patent. No nasal discharge, no septal abnormalities noted. Tympanic membranes are normal and external auditory canals are clear. Oropharynx with no redness, swelling, or masses, exudates, or evidence of obstruction, uvula midline. Mucous membranes moist. Neck: Trachea midline, no thyromegaly or masses palpated, and no cervical lymphadenopathy. Supple, full range of motion without nuchal rigidity, or vertebral point tenderness. Positive JVD Chest/axilla: Normal chest wall appearance and motion. Nontender with no deformity. No lesions are appreciated. Cardiovascular: Regular rate and rhythm with a normal S1 and S2. No gallops, murmurs, or rubs. Normal PMI, Positive JVD , No pulse deficits. Respiratory: Lungs have equal breath sounds bilaterally, clear to auscultation and percussion. No rales, rhonchi or wheezes noted. No increased work of breathing, no retractions or nasal flaring. Abdomen/GI: Soft, non-tender, with normal bowel sounds. No distension or tympany. No guarding or rebound. No evidence of tenderness throughout. Back: No spinal tenderness. No costovertebral tenderness. Skin: Warm, dry with normal turgor. Normal color with no rashes, no lesions, and no evidence of cellulitis. MS/ Extremity: Pulses equal, no cyanosis. Neurovascular intact. Full, normal range of motion. Neuro: Awake and alert, GCS 15, oriented to person, place, time, and situation. Cranial nerves II-XII grossly intact. Motor strength 5/5 in all extremities. Sensory grossly intact. Psych: Awake, alert, with orientation to person, place and time. Behavior, mood, and affect are within normal limits 05:59 ECG was reviewed by the Attending Physician. EKG at 0511 there is normal sinus rhythm sp4 at rate of 91, no ST elevation or depression, no ectopy, normal EKG overall Vital Signs: 04:56 BP 167 / 93; Pulse 93; Resp 18 S; Temp 98.7(O); Pulse Ox 97% on R/A; Weight 85.73 kg lg3 (R); Height 5 ft. 10 in. (R); 05:00 BP 155 / 87; Pulse 86; Resp 18; Pulse Ox 97% on R/A; km8 05:30 BP 149 / 90; Pulse 89; Resp 22; Pulse Ox 97% on R/A; km8 06:00 BP 149 / 76; Pulse 85; Resp 16; Pulse Ox 97% on R/A; km8 06:30 BP 126 / 69; Pulse 72; Resp 16; Pulse Ox 95% on R/A; km8 07:51 BP 123 / 65; Pulse 87; Resp 22; Temp 98.4; Pulse Ox 96% on R/A; ph 04:56 Body Mass Index 27.12 (85.73 kg, 177.8 cm) lg3 [place] Score: 05:00 Eye Response: spontaneous(4). Motor Response: obeys commands(6). Verbal Response: km8 oriented(5). Total: 15. MDM: 04:58 Patient medically screened. sp4 05:56 ED course: Chest - TECHNIQUE: Single view of the chest. COMPARISON: June 21, 2023. sp4 FINDINGS: Lungs: No fluid overload or focal consolidation. Pleural space: Unremarkable. No pneumothorax. Heart: Cardiomegaly. Mediastinum: Unremarkable. Normal mediastinal contour. Bones/joints: No acute fracture visualized. Upper abdomen: No free air in the visualized upper abdomen. IMPRESSION: No fluid overload or focal consolidation. . 06:05 Differential diagnosis: Anxiety Reaction asthma, Bronchitis CHF exacerbation, Chronic sp4 Obstructive Pulmonary Disease Myocardial Infarction pneumonia, Pneumothorax. Data reviewed: vital signs, nurses notes, old medical records, lab test result(s), EKG, radiologic studies, plain films. ED course: . 06:54 ED course: Patient was accepted to [facility]. Will transfer by 4 ground EMS. 08/09 04:57 Order name: Basic Metabolic Panel; Complete Time: 05:54 4 08/09 04:57 Order name: CBC with Diff; Complete Time: 05:54 sp4 08/09 04:57 Order name: LFT's; Complete Time: 05:54 4 08/09 04:57 Order name: Magnesium; Complete Time: 05:54 4 08/09 04:57 Order name: NT PRO-BNP; Complete Time: 05:54 4 08/09 04:57 Order name: PT-INR; Complete Time: 05:54 4 08/09 04:57 Order name: Troponin HS; Complete Time: 05:54 4 08/09 04:57 Order name: Lipase; Complete Time: 05:54 sp4 08/09 04:58 Order name: COVID-19/FLU A+B; Complete Time: 05:54 sp4 08/09 04:57 Order name: XRAY Chest (1 view) sp4 08/09 04:57 Order name: EKG; Complete Time: 04:57 sp4 08/09 04:57 Order name: Cardiac monitoring; Complete Time: 05:14 sp4 08/09 04:57 Order name: EKG - Nurse/Tech; Complete Time: 05:14 sp4 08/09 04:57 Order name: IV Saline Lock; Complete Time: 05:14 sp4 08/09 04:57 Order name: Labs collected and sent; Complete Time: 05:14 sp4 08/09 04:57 Order name: O2 Per Protocol; Complete Time: 05:15 sp4 08/09 04:57 Order name: O2 Sat Monitoring; Complete Time: 05:15 sp4 EC:59 Rate is 91 beats/min. Rhythm is regular, Normal Sinus Rhythm. QRS [place] is Normal. [place] sp4 interval is normal. QRS interval is normal. QT interval is normal. No Q waves. T waves are Normal. No ST changes noted. Clinical impression: Normal ECG. Interpreted by me. Reviewed by me. Administered Medications: 05:24 Drug: Furosemide IVP 40 mg IVP once; give over 2 minutes Route: IVP; Site: right rv forearm; 06:13 Follow up: Response: No adverse reaction km8 05:24 Drug: Nitroglycerin Transdermal Ointment 2 % 1 inches Transdermal once Route: rv Transdermal; Site: anterior chest wall; 06:13 Follow up: Response: No adverse reaction km8 06:04 Drug: Aspirin PO Chewable Tablet 324 mg PO once; 81 mg tablets x 4 Route: PO; rv 06:43 Follow up: Response: No adverse reaction km8 06:04 Drug: Enoxaparin Sub-Q 90 mg Sub-Q once Route: Sub-Q; Site: abdomen; rv 06:43 Follow up: Response: No adverse reaction km8 Disposition Summary: 08/09/23 05:59 Transfer Ordered Notes: Transfer Location: [facility] sp4 Reason: Higher level of care sp4 Condition: Stable sp4 Problem: new sp4 Symptoms: have improved sp4 Accepting Physician: [facility] ospitalist(08/09/23 08:35) ko1 Diagnosis - Acute on chronic diastolic (congestive) heart failure sp4 - Evaded troponin, NSTEMI, Dyspnea sp4 Forms: - Medication Reconciliation Form sp4 - SBAR form sp4 Signatures: Dispatcher [employer] EDNehemiah Bowman, RN RN rv AbleKathy RN RN lg3 Anat Hebert RN RN ko1 Dashawn Rojas MD MD sp4 Louise Petersen RN km8 Corrections: (The following items were deleted from the chart) 08:35 05:59 [place] ospitalist sp4 ko1
--- NOTE | 2023-08-09 06:00 | ER ---
Nurse's Notes [facility] Name: Sylvain Veronica Age: 72 yrs Sex: Male : 1950 Arrival Date: 08/09/2023 Time: 04:44 Bed 6 Private MD: Diagnosis: Acute on chronic diastolic (congestive) heart failure;Evaded troponin, NSTEMI, Dyspnea Presentation: 08/09 04:56 Chief complaint: Patient states: SOB, dry throat, cough, runny nose beginning 0300 this lg3 morning. Coronavirus screen: Client denies travel out of the [place] in the last 14 days. Client presents with at least one sign or symptom that may indicate coronavirus-19. Standard/surgical mask placed on the client. Ebola Screen: No symptoms or risks identified at this time. Initial Sepsis Screen: Does the patient meet any 2 criteria? No. Patient's initial sepsis screen is negative. Does the patient have a suspected source of infection? No. Patient's initial sepsis screen is negative. Risk Assessment: Do you want to hurt yourself or someone else? Patient reports no desire to harm self or others. Onset of symptoms was August 09, 2023. 04:56 Method Of Arrival: Ambulatory lg3 04:56 Acuity: JACKIE 3 lg3 Triage Assessment: 04:57 General: Appears in no apparent distress. comfortable, Behavior is calm, cooperative. lg3 Pain: Complains of pain in abdomen. EENT: No deficits noted. Reports nasal congestion nasal discharge. Neuro: No deficits noted. Cottrell Agitation-Sedation Scale (RASS): 0 - Alert and Calm Level of Consciousness is awake, alert, obeys commands, Oriented to person, place, time, situation. Cardiovascular: No deficits noted. Denies chest pain, Capillary refill < 3 seconds Clubbing of nail beds is absent JVD is absent Patient's skin is warm and dry. Respiratory: Reports shortness of breath cough that is pain with cough Onset: The symptoms/episode began/occurred suddenly, the patient has mild shortness of breath. GI: No deficits noted. Abdomen is round non-distended. : No deficits noted. No signs and/or symptoms were reported regarding the genitourinary system. Derm: No deficits noted. No signs and/or symptoms reported regarding the dermatologic system. Skin is intact, is healthy with good turgor, Skin is dry, Skin is normal, Skin temperature is warm. Musculoskeletal: No deficits noted. No signs and/or symptoms reported regarding the musculoskeletal system. Circulation, motion, and sensation intact. Range of motion: intact in all extremities. Historical: - Allergies: 04:57 No Known Allergies; lg3 - Home Meds: 04:57 Entresto oral [Active]; Metoprolol Tartrate Oral [Active]; atorvastatin oral [Active]; lg3 - PMHx: 04:57 Congestive heart failure; Systolic; Diabetes - IDDM; Hypertensive disorder; kidney lg3 disease; CKD 3; - PSHx: 04:57 Appendectomy; cardiac stents; Cholecystectomy; lg3 - Immunization history:: Adult Immunizations up to date, Client reports receiving the 2nd dose of the Covid vaccine, Flu vaccine is not up to date. - Social history:: Smoking status: Patient denies any tobacco usage or history of. Patient/guardian denies using alcohol, street drugs. - Family history:: not pertinent. Screenin:00 [facility] ED Fall Risk Assessment (Adult) History of falling in the last 3 months, km8 including since admission No falls in past 3 months (0 pts) Confusion or Disorientation No (0 pts) Intoxicated or Sedated No (0 pts) Impaired Gait No (0 pts) Mobility Assist Device Used No (0 pt) Altered Elimination No (0 pt) Score/Fall Risk Level 0 - 2 = Low Risk Oriented to surroundings, Maintained a safe environment, Educated pt \T\ family on fall prevention, incl call for assistance when getting out of bed, Assessed \T\ reinforced patient's understanding of fall precautions. Abuse screen: Denies threats or abuse. Denies injuries from another. Nutritional screening: No deficits noted. Tuberculosis screening: No symptoms or risk factors identified. Assessment: 05:00 General: Appears in no apparent distress. comfortable, Behavior is calm, cooperative, km8 appropriate for age. Pain: Denies pain. Neuro: Level of Consciousness is awake, alert, obeys commands, Oriented to person, place, time, situation. Cardiovascular: Reports shortness of breath, Denies chest pain, Capillary refill < 3 seconds Patient's skin is warm and dry. edema to BLE. Rhythm is regular. Respiratory: Reports shortness of breath Airway is patent Respiratory effort is even, labored, Respiratory pattern is regular, symmetrical, Breath sounds with crackles bilaterally. GI: No signs and/or symptoms were reported involving the gastrointestinal system. : No signs and/or symptoms were reported regarding the genitourinary system. EENT: No signs and/or symptoms were reported regarding the EENT system. Derm: Skin is intact, Skin is dry, Skin is normal, Skin temperature is warm. Musculoskeletal: No signs and/or symptoms reported regarding the musculoskeletal system. Range of motion: intact in all extremities. 06:00 Reassessment: Patient appears in no apparent distress at this time. No changes from km8 previously documented assessment. Patient and/or family updated on plan of care and expected duration. Pain level reassessed. Patient is alert, oriented x 3, equal unlabored respirations, skin warm/dry/pink. 06:06 General: daughter Rosana [phone]. lg3 07:33 Reassessment: Patient appears in no apparent distress at this time. Patient and/or ph family updated on plan of care and expected duration. Pain level reassessed. Attempted to call report, no answer at transfer center, will attempt again. 07:50 Reassessment: Patient is alert, oriented x 3, equal unlabored respirations, skin ph warm/dry/pink. Report called to Bette WOODS at [facility], transfer form signed by pt, awaiting EMS for transport. Vital Signs: 04:56 BP 167 / 93; Pulse 93; Resp 18 S; Temp 98.7(O); Pulse Ox 97% on R/A; Weight 85.73 kg lg3 (R); Height 5 ft. 10 in. (R); 05:00 BP 155 / 87; Pulse 86; Resp 18; Pulse Ox 97% on R/A; km8 05:30 BP 149 / 90; Pulse 89; Resp 22; Pulse Ox 97% on R/A; km8 06:00 BP 149 / 76; Pulse 85; Resp 16; Pulse Ox 97% on R/A; km8 06:30 BP 126 / 69; Pulse 72; Resp 16; Pulse Ox 95% on R/A; km8 07:51 BP 123 / 65; Pulse 87; Resp 22; Temp 98.4; Pulse Ox 96% on R/A; ph 04:56 Body Mass Index 27.12 (85.73 kg, 177.8 cm) lg3 Vitals: 07:51 Cardiac Rhythm Assessment Sinus rhythm. ph Elyssa Coma Score: 05:00 Eye Response: spontaneous(4). Motor Response: obeys commands(6). Verbal Response: km8 oriented(5). Total: 15. ED Course: 04:47 Patient arrived in ED. gm2 04:56 Dashawn Rojas MD is Attending Physician. sp4 04:57 Triage completed. lg3 04:57 Arm band placed on right wrist. lg3 05:00 Patient has correct armband on for positive identification. Bed in low position. Call km8 light in reach. Side rails up X2. Client placed on continuous cardiac and pulse oximetry monitoring. NIBP monitoring applied. Door closed. Noise minimized. Lights dimmed. 05:00 No provider procedures requiring assistance completed. Patient maintains SpO2 km8 saturation greater than 95% on room air. 05:14 XRAY Chest (1 view) In Process Unspecified. EDMS 05:15 Inserted saline lock: 20 gauge in right forearm, using aseptic technique. Blood km8 collected. 06:[address] [facility] transfer center with Deja. jr12 07:16 spoke with Lindsay at transfer center for acceptance to [facility]. bc6 07:28 spoke with Devin at [facility] for transfer . 6 07:30 Miriam Lorenzana, RN is Primary Nurse. ph 07:34 Patient transferred, IV remains in place. ph 08:34 Provided Education on: na. ko1 Administered Medications: 05:24 Drug: Furosemide IVP 40 mg IVP once; give over 2 minutes Route: IVP; Site: right rv forearm; 06:13 Follow up: Response: No adverse reaction km8 05:24 Drug: Nitroglycerin Transdermal Ointment 2 % 1 inches Transdermal once Route: rv Transdermal; Site: anterior chest wall; 06:13 Follow up: Response: No adverse reaction km8 06:04 Drug: Aspirin PO Chewable Tablet 324 mg PO once; 81 mg tablets x 4 Route: PO; rv 06:43 Follow up: Response: No adverse reaction km8 06:04 Drug: Enoxaparin Sub-Q 90 mg Sub-Q once Route: Sub-Q; Site: abdomen; rv 06:43 Follow up: Response: No adverse reaction km8 Medication: 05:00 VIS not applicable for this client. km8 Output: 06:53 Urine: 350ml (Voided); Total: 350ml. km8 Outcome: 05:59 ER care complete, transfer ordered by MD. mariscal 08:34 Transferred by ground [facility] [place] to [facility], [facility], Transfer form ko1 completed. X-rays sent w/ patient. 08:34 Condition: stable 08:34 Instructed on the need for transfer, 08:35 Patient left the ED. ko1 Signatures: Dispatcher [employer] EDMiriam Corona, RN RN Nehemiah Hearn, RN RN Kathy Preez, RN RN 3 Anat Hebert, RN RN ko1 Mariam Viveros Sergey, MD MD sp4 Ashleigh Betts [facility] Franci Maier [facility] Louise Petersen, RN RN km8
[2023-08-09] MEDS ORDERED: ASPIRIN 81 MG CHEWABLE TABLET ONE (06:14)
[2023-08-09] MEDS ORDERED: ENOXAPARIN 100 MG/ML SYR SQ ONE (06:15)
--- NOTE | 2023-08-09 09:41 | RAD REPORT ---
EXAM DESCRIPTION: RAD - Chest Single View - 08/09/2023 5:12 am CLINICAL HISTORY: The patient is 72 years old and is Male; CHEST PAIN TECHNIQUE: Single view of the chest. COMPARISON: June 21, 2023. FINDINGS: Lungs: No fluid overload or focal consolidation. Pleural space: Unremarkable. No pneumothorax. Heart: Cardiomegaly. Mediastinum: Unremarkable. Normal mediastinal contour. Bones/joints: No acute fracture visualized. Upper abdomen: No free air in the visualized upper abdomen. IMPRESSION: No fluid overload or focal consolidation. Electronically signed by: Donita Bradford MD 08/09/2023 05:18 AM GENERAL MANAGER [employer] DE[employer] Due to temporary technical issues with the PACS/Fluency reporting system, reports are being signed by the in house radiologists without review as a courtesy to insure prompt reporting. The interpreting radiologist is fully responsible for the content of the report.
[2023-08-09 09:47] VITALS: BP 123/65; TEMP 98.4; O2SAT 96
--- NOTE | 2023-08-10 15:23 | EKG ---
Test Date: 2023-08-09 Test Time: 05:11:23 Clinical Practice Consultant: SARA MEASUREMENT RESULTS: Intervals: Rate: 91 OR: 176 QRSD: 96 QT: 384 QTc: 472 [place]: P: 51 OR: 176 QRS: 55 T: 84 INTERPRETIVE STATEMENTS: Normal sinus rhythm Normal ECG Compared to ECG 08/05/2023 22:53:42 Myocardial infarct finding no longer present Electronically Signed On 08-10-23 15:20:08 STOP ATTACHER by Arie Bragg
== END 2023-08-09 08:35 | disposition short-term general hospital (02) ==
LOC: ER 04:44
DX: I21.4 Non-ST elevation (NSTEMI) myocardial infarction (principal); I50.33 Acute on chronic diastolic (congestive) heart failure; E11.22 Type 2 diabetes mellitus with diabetic chronic kidney disease; I12.9 Hypertensive chronic kidney disease with stage 1 through stage 4 chronic kidney disease, or unspecified chronic kidney disease; N18.30 Chronic kidney disease, stage 3 unspecified; Z95.818 Presence of other cardiac implants and grafts; Z11.52 Encounter for screening for COVID-19
CPT/HCPCS: 93005; 85025; 80048; 36415; 83735; 85610; 80076; 84484; 83690; 83880; 0240U; 71045; 96372; 96374; 99285; J1650; J1940

== ENCOUNTER 2023-08-28 21:26 | Inpatient (IN) | payer OTHER ==
[2023-08-28] MEDS ORDERED: NITROGLYCERIN 1 GM PKT TD ONE (21:58)
[2023-08-28] MEDS ORDERED: ONDANSETRON 4 MG/2 ML VIAL ONE (21:58)
[2023-08-28] MEDS ORDERED: FUROSEMIDE 40 MG/4 ML VIAL ONE (21:59)
[2023-08-28] MEDS ORDERED: MORPHINE 2 MG/ML SYR ONE (21:59)
--- NOTE | 2023-08-28 22:23 | RAD REPORT ---
[facility]AM [facility] 10:15 pm CLINICAL HISTORY: CHEST PAIN COMPARISON: Chest Single View dated 08/09/2023; Chest Single View dated 07/05/2023; Chest Single View dated 06/21/2023; Chest Single View dated 10/31/2022 TECHNIQUE: Portable AP view of the chest. FINDINGS: Progressive central interstitial prominence. Suspected small right effusion. No pneumotho rax or left effusion. The cardiomediastinal contours are unremarkable. IMPRESSION: Findings suggestive of pulmonary edema or central congestion.
[2023-08-28 22:25] LABS: Absolute Lymphocytes (CBC) 1.1 K/uL (0.7-4.9); Hematocrit 27.9 % (39.6-49.0); MCV 85.6 fL (80-100); MPV 8.6 fL (7.6-11.3); Platelets 243 thou/uL (152-406); Protime INR 1.24; RBC Red Blood Cell Count 3.27 M/uL (4.33-5.43)
[2023-08-28 23:12] LABS: Albumin 2.9 g/dL (3.4-5.0); Bilirubin Direct 0.2 mg/dL (0-0.2); Bilirubin Indirect, Calculated 0.4 mg/dL (0.2-0.8); Bilirubin Total 0.6 mg/dL (0.2-1.0); Potassium 3.7 mEq/L (3.5-5.1); Protein, Total 6.8 g/dL (6.4-8.2)
[2023-08-28 23:49] LABS: Troponin High Sensitivity 83.2 pg/mL (<58.9)
--- NOTE | 2023-08-29 00:48 | ER ---
Nurse's Notes [facility] Name: Sylvain Veronica Age: 72 yrs Sex: Male : 1950 Arrival Date: 08/28/2023 Time: 21:26 Bed 5 Private MD: Diagnosis: Acute diastolic (congestive) heart failure;Congestive heart failure exacerbation with acute pulmonary edema Presentation: 08/28 21:44 Chief complaint: Patient states: Chest pain and shortness of breath onset today. Pt cm10 states that the shortness of breath is worse when laying down. Pt states that the pain is to the center of his chest and radiates down his abdomen. Coronavirus screen: Vaccine status: Patient reports receiving the 2nd dose of the covid vaccine. Client denies travel out of the [place] in the last 14 days. Ebola Screen: Patient denies travel to an Ebola-affected area in the 21 days before illness onset. No symptoms or risks identified at this time. Initial Sepsis Screen: Does the patient meet any 2 criteria? No. Patient's initial sepsis screen is negative. Does the patient have a suspected source of infection? No. Patient's initial sepsis screen is negative. Risk Assessment: Do you want to hurt yourself or someone else? Patient reports no desire to harm self or others. Onset of symptoms was August 28, 2023. 21:44 Method Of Arrival: Ambulatory cm10 21:44 Acuity: JACKIE 2 cm10 Historical: - Allergies: 21:43 No Known Allergies; cm10 - PMHx: 21:43 Congestive heart failure; Systolic; Diabetes - IDDM; Hypertensive disorder; kidney cm10 disease; CKD 3; - PSHx: 21:43 Appendectomy; cardiac stents; Cholecystectomy; cm10 - Immunization history:: Adult Immunizations unknown. - Social history:: Smoking status: Patient denies any tobacco usage or history of. - Family history:: not pertinent. Screenin:18 [facility] ED Fall Risk Assessment (Adult) Score/Fall Risk Level 0 - 2 = Low Risk. Abuse as6 screen: Denies threats or abuse. Denies injuries from another. Nutritional screening: No deficits noted. Tuberculosis screening: No symptoms or risk factors identified. Assessment: 22:17 General: Appears in no apparent distress. Behavior is calm, cooperative. Pain: as6 Complains of pain in chest. Neuro: Level of Consciousness is awake, alert, obeys commands, Oriented to person, place, time, situation. Cardiovascular: Reports chest pain, shortness of breath, Capillary refill < 3 seconds Patient's skin is warm and dry. Edema is 2+ to left midcalf, left ankle, left foot, left toes, right midcalf, right ankle, right foot and right toes. Respiratory: Airway is patent Trachea midline Respiratory effort is labored, Respiratory pattern is regular, symmetrical, Breath sounds with crackles. 23:31 Reassessment: Patient appears in no apparent distress at this time. Patient and/or as6 family updated on plan of care and expected duration. Pain level reassessed. Patient is alert, oriented x 3, equal unlabored respirations, skin warm/dry/pink. Vital Signs: 21:44 BP 147 / 91; Pulse 91; Resp 18; Temp 98.6(TE); Pulse Ox 96% on R/A; Weight 86.64 kg cm10 (R); Height 5 ft. 10 in. ; Pain 8/10; 22:18 BP 147 / 85; Pulse 87; Resp 17 S; Pulse Ox 97% on R/A; as6 23:30 BP 139 / 80; Pulse 101; Resp 20 S; Pulse Ox 99% on R/A; as6 21:44 Body Mass Index 27.41 (86.64 kg, 177.8 cm) cm10 21:44 Pain Scale: Adult cm10 ED Course: 21:33 Patient arrived in ED. ag3 21:34 Dashawn Rojas MD is Attending Physician. sp4 21:45 Triage completed. cm10 21:45 Arm band placed on Patient placed in an exam room, on a stretcher. cm10 21:51 Yoel Martinez, CHUCK is Primary Nurse. as6 22:17 XRAY Chest (1 view) In Process Unspecified. EDMS 22:18 Placed in gown. Bed in low position. Call light in reach. Side rails up X2. Client as6 placed on continuous cardiac and pulse oximetry monitoring. NIBP monitoring applied. Warm blanket given. 22:23 Inserted saline lock: 20 gauge in left forearm, using aseptic technique. Blood vk collected. 08/29 00:47 Walter Pires is Hospitalizing Provider. sp4 03:24 No provider procedures requiring assistance completed. Patient admitted, IV remains in lg3 place. 15:21 Provided Education on: need for admission . ap3 Administered Medications: 08/28 22:13 Drug: morphine IVP or IV 2 mg IVP once over 4 mins Route: IVP; Infused Over: 4 mins; as6 Site: left forearm; 08/29 03:25 Follow up: Response: No adverse reaction lg3 08/28 22:13 Drug: Nitroglycerin Transdermal Ointment 2 % 0.5 inches Transdermal once Route: as6 Transdermal; Site: anterior chest wall; 22:13 Drug: Furosemide IVP 40 mg IVP once; give over 2 minutes Route: IVP; Site: left forearm;as6 08/29 03:25 Follow up: Response: No adverse reaction lg3 08/28 22:13 Drug: Ondansetron IVP 4 mg IVP once; over 2 minutes Route: IVP; Site: left forearm; as6 08/29 03:25 Follow up: Response: No adverse reaction lg3 Medication: 08/28 22:19 VIS not applicable for this client. as6 Outcome: 08/29 00:47 Decision to Hospitalize by Provider. sp4 03:24 Admitted to ER Hold. Please see [facility] for further documentation. lg3 03:24 Condition: stable lg3 03:24 Instructed on the need for admit, 15:47 Patient left the ED. hb Signatures: Dispatcher [employer] EDMS Le Mcdowell RN RN Violetta Parham RN CHUCK ap3 Margo Alvarez 3 Kathy Perez RN RN lg3 Yoel Martinez RN RN as6 Dashawn Rojas MD MD sp4 Radha Rucker RN RN cm10 Brunilda Oseguera Corrections: (The following items were deleted from the chart) 08/28 22:24 22:23 Inserted saline lock: 20 gauge in right forearm, using aseptic technique. vk vk 22:25 22:23 Inserted saline lock: 20 gauge in left forearm, using aseptic technique. vk vk 22:25 22:24 Inserted vk vk
--- NOTE | 2023-08-29 00:49 | EDPHYS ---
Physician Documentation [facility] Name: Sylvain Veronica Age: 72 yrs Sex: Male : 1950 Arrival Date: 08/28/2023 Time: 21:26 Bed 5 Private MD: ED Physician Dashawn Rojas HPI: 08/28 21:34 This 72 yrs old Male presents to ER via Unassigned with complaints of sp4 Shortness Of Breath, Abdominal Pain. 21:34 PMH - Historical: Allergies: No Known Allergies; Home Meds: Entresto oral; Metoprolol sp4 Tartrate Oral; atorvastatin oral PMHx: Congestive heart failure; Systolic; Diabetes - IDDM; Hypertensive disorder; kidney disease; CKD 3; PSHx: Appendectomy; cardiac stents; Cholecystectomy;. 08/29 00:39 Mr. Veronica is a 72-year-old male presents for acute shortness of breath worsening lower sp4 extremity edema starting 2 days ago. Patient has history of laparoscopic appendectomy on 06/22/2023 for acute appendicitis. Patient additionally has history of chronic kidney disease stage III, insulin-dependent diabetes mellitus, chronic systolic heart failure, coronary artery disease history of 2 prior stents, and hypertension. Patient was managed for last time on 06/22/2023. Patient was admitted to the hospital last and also managed for hypertension, diabetes type 2, hyperlipidemia, chronic kidney disease,. Patient's home medications include aspirin, metoprolol p.o. twice daily, also Entresto 24-26 mg. . Historical: - Allergies: 08/28 21:43 No Known Allergies; cm10 - PMHx: 21:43 Congestive heart failure; Systolic; Diabetes - IDDM; Hypertensive disorder; kidney cm10 disease; CKD 3; - PSHx: 21:43 Appendectomy; cardiac stents; Cholecystectomy; cm10 - Immunization history:: Adult Immunizations unknown. - Social history:: Smoking status: Patient denies any tobacco usage or history of. - Family history:: not pertinent. ROS: 08/29 00:39 Constitutional: Negative for fever, chills, and weight loss, positive dyspnea on sp4 exertion, positive orthopnea, positive shortness of breath, positive bilateral lower extremity swelling. Eyes: Negative for injury, pain, redness, and discharge, All other systems are negative, Exam: 00:39 Constitutional: This is a well developed, well nourished patient who is awake, alert, sp4 and in no acute distress. Ill-appearing but nontoxic. Head/Face: Normocephalic, atraumatic. Eyes: Pupils equal round and reactive to light, extra-ocular motions intact. Lids and lashes normal. Conjunctiva and sclera are not injected. Cornea within normal limits. Periorbital areas with no swelling, redness, or edema. ENT: Nares patent. No nasal discharge, no septal abnormalities noted. Tympanic membranes are normal and external auditory canals are clear. Oropharynx with no redness, swelling, or masses, exudates, or evidence of obstruction, uvula midline. Mucous membranes moist. Neck: Trachea midline, no thyromegaly or masses palpated, and no cervical lymphadenopathy. Supple, full range of motion without nuchal rigidity, or vertebral point tenderness. Positive jugular venous distention Chest/axilla: Normal chest wall appearance and motion. Nontender with no deformity. No lesions are appreciated. Cardiovascular: Regular rate and rhythm with a normal S1 and S2. No gallops, murmurs, or rubs. Normal PMI No pulse deficits. Positive JVD and signs of volume overload . Bilateral lower extremity edema with pitting Respiratory: Lungs have equal breath sounds bilaterally, clear to auscultation and percussion. No rales, rhonchi or wheezes noted. No increased work of breathing, no retractions or nasal flaring. Abdomen/GI: Soft, non-tender, with normal bowel sounds. No distension or tympany. No guarding or rebound. No evidence of tenderness throughout. Back: No spinal tenderness. No costovertebral tenderness. Male : Normal genitalia with no discharge or lesions. Skin: Warm, dry with normal turgor. Normal color with no rashes, no lesions, and no evidence of cellulitis. MS/ Extremity: Pulses equal, no cyanosis. Neurovascular intact. Full, normal range of motion. Neuro: Awake and alert, GCS 15, oriented to person, place, time, and situation. Cranial nerves II-XII grossly intact. Motor strength 5/5 in all extremities. Sensory grossly intact. Psych: Awake, alert, with orientation to person, place and time. Behavior, mood, and affect are within normal limits 00:39 ECG was reviewed by the Attending Physician. EKG at 2157 reveals normal sinus rhythm at rate 96, no ST elevation or depression, no ectopy, prolonged QT. Vital Signs: 08/28 21:44 BP 147 / 91; Pulse 91; Resp 18; Temp 98.6(TE); Pulse Ox 96% on R/A; Weight 86.64 kg cm10 (R); Height 5 ft. 10 in. ; Pain 8/10; 22:18 BP 147 / 85; Pulse 87; Resp 17 S; Pulse Ox 97% on R/A; as6 23:30 BP 139 / 80; Pulse 101; Resp 20 S; Pulse Ox 99% on R/A; as6 21:44 Body Mass Index 27.41 (86.64 kg, 177.8 cm) cm10 21:44 Pain Scale: Adult cm10 MDM: 21:36 Patient medically screened. sp4 08/29 00:39 ED course: [facility] 10:15 pm CLINICAL HISTORY: sp4 CHEST PAIN COMPARISON: Chest Single View dated 08/09/2023; Chest Single View dated 07/05/2023; Chest Single View dated 06/21/2023; Chest Single View dated 10/31/2022 TECHNIQUE: Portable AP view of the chest. FINDINGS: Progressive central interstitial prominence. Suspected small right effusion. No pneumothorax or left effusion. The cardiomediastinal contours are unremarkable. IMPRESSION: Findings suggestive of pulmonary edema or central congestion.. 21:10 Differential diagnosis: Anxiety Reaction asthma, Bronchitis CHF exacerbation, Chronic sp4 Obstructive Pulmonary Disease Myocardial Infarction. Consideration of Admission/Observation Patient was admitted/placed on observation. Escalation of care including admission/observation considered. Management of patient was discussed with the following: Hospitalist: Lexis GREY = accepted for admission . ED course: Patient admitted for acute CHF exacerbation. 21:12 Data reviewed: vital signs, nurses notes, old medical records, lab test result(s), EKG, sp4 radiologic studies, plain films. 08/28 21:35 Order name: Basic Metabolic Panel; Complete Time: 00:35 sp4 08/28 21:35 Order name: CBC with Diff; Complete Time: 00:35 sp4 08/28 21:35 Order name: LFT's; Complete Time: 00:35 sp4 08/28 21:35 Order name: Magnesium; Complete Time: 00:35 sp4 08/28 21:35 Order name: NT PRO-BNP; Complete Time: 00:35 sp4 08/28 21:35 Order name: PT-INR; Complete Time: 00:35 sp4 08/28 21:35 Order name: Troponin HS; Complete Time: 00:35 sp4 08/29 03:03 Order name: Troponin High Sensitivity; Complete Time: 21:12 EDMS 08/29 06:56 Order name: Troponin High Sensitivity; Complete Time: 21:12 EDMS 08/29 07:42 Order name: Glucose, Ancillary Testing; Complete Time: 21:12 EDMS 08/29 11:34 Order name: Glucose, Ancillary Testing; Complete Time: 21:12 EDMS 08/28 21:35 Order name: XRAY Chest (1 view); Complete Time: 00:35 sp4 08/28 21:35 Order name: EKG; Complete Time: 21:36 sp4 08/28 21:35 Order name: Cardiac monitoring; Complete Time: 22:17 sp4 08/28 21:35 Order name: EKG - Nurse/Tech; Complete Time: 22:13 sp4 08/28 21:35 Order name: IV Saline Lock; Complete Time: 22:13 sp4 08/28 21:35 Order name: Labs collected and sent; Complete Time: 22:13 sp4 08/28 21:35 Order name: O2 Per Protocol; Complete Time: 22:17 sp4 08/28 21:35 Order name: O2 Sat Monitoring; Complete Time: 22:17 sp4 EC:39 Rate is 96 beats/min. Rhythm is regular, Sinus Rhythm. QRS [place] is Normal. ID interval sp4 is normal. QRS interval is normal. QT interval is prolonged. No Q waves. T waves are Normal. No ST changes noted. Clinical impression: No evidence of ischemia. Interpreted by me. Reviewed by me. Administered Medications: 08/28 22:13 Drug: morphine IVP or IV 2 mg IVP once over 4 mins Route: IVP; Infused Over: 4 mins; as6 Site: left forearm; 08/29 03:25 Follow up: Response: No adverse reaction lg3 08/28 22:13 Drug: Nitroglycerin Transdermal Ointment 2 % 0.5 inches Transdermal once Route: as6 Transdermal; Site: anterior chest wall; 22:13 Drug: Furosemide IVP 40 mg IVP once; give over 2 minutes Route: IVP; Site: left forearm;as6 08/29 03:25 Follow up: Response: No adverse reaction lg3 08/28 22:13 Drug: Ondansetron IVP 4 mg IVP once; over 2 minutes Route: IVP; Site: left forearm; as6 08/29 03:25 Follow up: Response: No adverse reaction lg3 Disposition Summary: 08/29/23 00:47 Hospitalization Ordered Notes: Hospitalization Status: Inpatient Admission sp4 Provider: Walter Pires sp4 Condition: Stable sp4 Problem: new sp4 Symptoms: have improved sp4 Bed/Room Type: Standard sp4 Location: Telemetry/MedSurg (observation)(08/29/23 14:47) 6 Room Assignment: [facility](08/29/23 14:47) 6 Diagnosis - Acute diastolic (congestive) heart failure sp4 - Congestive heart failure exacerbation with acute pulmonary edema sp4 Forms: - Medication Reconciliation Form sp4 - SBAR form sp4 - Leadership Thank You Letter sp4 Signatures: Dispatcher [employer] Ameena Grier RN RN cg Yoel Martinez RN RN as6 Mariam Viveros 6 Dashawn oRjas MD MD sp4 Radha Rucker RN RN cm10 Kathy Perez RN lg3 Corrections: (The following items were deleted from the chart) 01:46 00:47 Telemetry/MedSurg (Inpatient) sp4 cg 01:46 00:47 sp4 cg 14:47 01:46 [facility] ER HOLD cg bc6 14:47 01:46 ERHOLD- cg bc6
[2023-08-29] MEDS ORDERED: ACETAMINOPHEN 650MG/RECT SUPP PR PRN (01:19)
[2023-08-29] MEDS ORDERED: ONDANSETRON 4 MG/2 ML VIAL IV PRN (01:19)
--- NOTE | 2023-08-29 01:41 | P.HP ---
Certification for Inpatient Patient admitted to: Inpatient With expected LOS: >2 Midnights Practitioner: I am a practitioner with admitting privileges, knowledge of patient current condition, hospital course, and medical plan of care. Services: Services provided to patient in accordance with Admission requirements found in Title 42 Section 412.3 of the Code of Federal Regulations Patient History Date of Service: 08/29/23 Reason for admission: Shortness of breath History of Present Illness: 72-year-old gentleman with a history of chronic systolic heart failure, diabetes mellitus type 2 presented to the emergency department with a complaint of progressive shortness of breath of 2 days duration. Patient also reported some chest tightness and palpitation. Chest x-ray done in the emergency department demonstrated pulmonary edema. Patient is on Entresto and metoprolol and stated he has not been on any maintenance Lasix therapy. EKG demonstrated sinus rhythm with nonspecific ST-T changes. Last echocardiogram was in 2021 and reported a EF of 31%. Patient given a dose of IV Lasix with partial improvement in his shortness of breath. Initial troponin mildly elevated to 83. Patient is hospitalized for further management. Allergies No Known Allergies Allergy (Verified 08/23/20 20:31) Home Medications: Metoprolol Succinate 1 tab PO DAILY 08/29/23 Sacubitril/Valsartan [Entresto 24 mg-26 mg Tablet] 1 tab PO DAILY 08/29/23 - Past Medical/Surgical History Diabetic: Yes -: Diabetes mellitus type 2insulin-dependent -: Hypertension -: Chronic systolic CHF -: CAD -: CKD 3 -: Cholecystectomy -: 2 stents Psychosocial/ Personal History: Patient is . Lives at home. - Family History Father -: Diabetes Mother -: Diabetes - Social History Alcohol use: Yes CD- Drugs: No Caffeine use: Yes Review of Systems Other: Patient denied any cough or wheezing. He denied any headache. He denied any abdominal pain or nausea or vomiting or diarrhea. Except as documented, all other systems reviewed and negative. Physical Examination - Physical Exam General: Alert, In no apparent distress, Oriented x3 HEENT: Mucous membr. moist/pink, Sclerae nonicteric Neck: Supple, JVD not distended Respiratory: Normal air movement, Crackles/rales (Bibasilar Rales) Cardiovascular: Regular rate/rhythm, Normal S1 S2, Edema (Trace bilateral lower extremity edema) Capillary refill: <2 Seconds Gastrointestinal: Normal bowel sounds, Soft and benign, Non-distended, No tenderness Musculoskeletal: No swelling, No tenderness Integumentary: No rashes, No cyanosis Neurological: Normal speech, Normal strength at 5/5 x4 extr, Cranial nerves 3-12 intact - Studies Laboratory Data (last 24 hrs) 08/28/23 08/28/23 08/28/23 22:35 22:07 22:07 WBC 8.80 Hgb 9.6 L Hct 27.9 L Plt Count 243 PT 13.6 H INR 1.24 Sodium 139 Potassium 3.7 BUN 39 H Creatinine 2.80 H Glucose 135 H Magnesium 2.0 Total Bilirubin 0.6 AST 15 ALT 24 Alkaline Phosphatase 104 Assessment and Plan - Problems (Diagnosis) (1) Acute on chronic systolic heart failure Current Visit: No Status: Acute (2) Chronic kidney disease, stage III (moderate) Current Visit: No Status: Acute (3) CAD (coronary artery disease) Current Visit: No Status: Chronic Qualifiers: Coronary Disease-Associated Artery/Lesion type: [place] artery [place] vs. 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 Treat CHF exacerbation with IV Lasix Monitor intake and output Monitor renal function while being diuresed. Obtain echocardiogram to reassess ejection fraction. Elevated troponin Patient with chronic troponin elevation Troponin elevation likely secondary to demand ischemia Trend troponin Obtain echocardiogram. Diabetes mellitus type 2 Patient is not on any medication for diabetes Diet controlled Blood sugar management with insulin sliding scale. He may benefit from Empagliflozin. Essential hypertension Reconcile and continue home medications DVT prophylaxis: Heparin SQ - Advance Directives Does patient have a Living Will: No Does patient have a Durable POA for Healthcare: No
[2023-08-29 01:42] VITALS: BMI 27.3
[2023-08-29] MEDS ORDERED: ONDANSETRON 4 MG/2 ML VIAL ONE (05:07)
[2023-08-29] MEDS: INSULIN REGULAR (HUMAN) 100 UNIT/ML SQ SCH ×4 (07:30→21:00)
[2023-08-29] MEDS ORDERED: PNEUMOCOCCAL VACCINE 0.5 ML IMVAC ONE (08:00)
[2023-08-29] MEDS ORDERED: INFLUENZA VACCINE (for 6+ mo) 0.5 ML DOSE IMVAC ONE (08:00)
[2023-08-29] MEDS ORDERED: HEPARIN 5000 UNIT/ML 1 ML VIAL ONE (08:43)
[2023-08-29] MEDS ORDERED: FUROSEMIDE 40 MG/4 ML VIAL ONE (08:43)
[2023-08-29] MEDS: FUROSEMIDE 40 MG/4 ML VIAL IV SCH ×2 (08:52→17:09)
[2023-08-29] MEDS: HEPARIN 5000 UNIT/ML 1 ML VIAL SQ SCH ×2 (08:53→17:09)
[2023-08-29] MEDS ORDERED: INSULIN REGULAR (HUMAN) 100 UNIT/ML ONE (11:27)
--- NOTE | 2023-08-29 11:39 | CON ---
Date of Consultation: 08/29/2023 Reason For Consultation: Elevated BUN and creatinine. Fluid management. History Of Present Illness: This is a 72-year-old gentleman with significant past medical history of diabetes since 1999, complicated with neuropathy and nephropathy, hypertension, hyperlipidemia, amna estive heart failure with ejection fraction low, chronic kidney disease, seen in the hospital by us alen neil with baseline creatinine of 2.7 as of June 2023 and GFR of 25. [facility] shortness of breath and orthopnea. Found to have elevation in BUN and creatinine. For that r eric, we have been consulted. According to him, he used to take Lasix as needed. His symptoms got worse since he had COVID 2 years back. Patient over the night started on diuresis, feeling better, s till have shortness of breath. Past Medical History: Includes: 1.Chronic kidney disease, stage 4, baseline creatinine 2.7, GFR of 25, as of June 2023, normal s ize kidney 06/06, proteinuric, nonnephrotic. A full workup was done on previous admission without an y autoimmune disease and serum protein electrophoresis was not done. 2.Hypertension. 3.Congestive heart failure, ejection fraction as of June 2023 of 31, nonischemic. 4.Hyperlipidemia. Home Medications: Includes: 1.Entresto. 2.Metoprolol. Family History: Positive for hypertension. Social History: Active alcohol. Denied drugs abuse. Review of Systems: Head and Neck: No red eye. No ear pain. GI: No nausea. No vomiting. : No polyuria. No dysuria. No hematuria. 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 Respiratory: Has shortness of breath. Cardiovascular: Has leg swelling. Has orthopnea. Endocrine: No polydipsia. Skin: No rash. Neuro: Has neuropathy. Musculoskeletal: Generalized fatigue. Physical Examination: Vital Signs: When I saw the patient, patient lying in bed. Blood pressure of 140/89, pulse of 84, a febrile. Chest: Faint rales, bilateral base. Heart: S1, S2. Systolic murmur. Abdomen: Soft, nontender. Extremities: Trace edema. Neurologic: Alert. No focality. Laboratory Data: Sodium 139, potassium 3.7, bicarb 21, BUN 39, creatinine 2.8, GFR of 24, calcium 7. 2. Phosphorus still pending. Hemoglobin 9.6. Current Medications: The patient on, it includes Tylenol, Lasix 40 b.i.d. Assessment And Plan: 1.Chronic kidney disease, stage 4, stable on his baseline with overvolume status. I agree with resu shashank the Lasix as current dose and we will follow up. I am going to go ahead and resume Entresto as GRACE inhibitor and we will monitor. Chronic kidney disease, stage 4, normal size kidney, secondary to diabetes nephropathy, proteinuric, nonnephrotic secondary to diabetes nephropathy, cardiorenal syndr ome. As above, continue Lasix. Resume Entresto. I am going to send for serum protein electrophores is and PTH and we will follow up the patient. 2.Hypertension. We will utilize the blood pressure for more diuresis. Agree with the current dose of Lasix. Resume Entresto. 3.Diabetes, as by primary. 4.Congestive heart failure with exacerbation, as above. Thank you, Dr. Blake for allowing us to participate in the care of your patient. EFRAIN Voice ID: [id number] Report ID: [id number]
--- NOTE | 2023-08-29 12:16 | P.PN ---
Date of Service: 08/29/23 Subjective: Reports difficulty breathing when laying in flat / in bed. Has to get up to catch breath. +laying elevated in recliner helps Has recently felt its been more difficult to catch a breath with exertion / ambulating Reports having sleep study scheduled next month - Feb Breathing more comfortably today - off oxygen this morning for a short period ROS: 10 point ROS as noted above, otherwise negative Physical Exam: GEN: Alert, oriented HEENT: Normal conjunctiva, sclera anicteric CV: Regular rate and rhythm, no edema Pulm: mild labored respirations on room air at rest, Tachypneic, dyspneic ABD: Soft, nontender, nondistended Neuro: Normal speech, normal affect vitals reviewed Problem List: Acute on chronic systolic CHF NSTEMI h/o CAD s/p 2 stents CKD4 Suspected sleep apnea IDDM2 Hypertension Acute on chronic systolic CHF NSTEMI h/o CAD s/p 2 stents Denies chest pain CXR (08/28): moderate pulmonary edema sees Broadcast News Producer Dr. Hernandez Cardiology consulted Troponins mildly elevated but trended flat, monitor on tele echo ordered to eval EF / stenosis Breathing improved with diuresis Continue IV lasix CKD4 Nephrology consulted Appears near baseline - as of Jun 2023: creatinine 2.7, GFR of 25 deemed secondary to diabetes nephropathy / proteinuric / cardiorenal syndrome Continue IV lasix monitor overnight / repeat Cr tomorrow pt with moderate pulm edema and syptomatic on admission, does not take diuretics at home anticipate lasix PO prescription on discharge Suspected sleep apnea Reports having sleep study scheduled next month in september IDDM2 Insulin sliding scale Hypertension confirm home meds, restart as appropriate VTE: heparin sq Code: Full Dispo: Home, ~1 day Pending further work up, nephro/cardio recommendations
[2023-08-29] MEDS: SACUBITRIL/VALSARTAN 24/26 MG TAB PO SCH (21:07)
[2023-08-30] MEDS: HEPARIN 5000 UNIT/ML 1 ML VIAL SQ SCH ×3 (00:39→16:39)
[2023-08-30 02:43] LABS: Absolute Lymphocytes (CBC) 1.4 K/uL (0.7-4.9); Hematocrit 25.5 % (39.6-49.0); Lymphocytes % 23.3 % (15.3-44.8); MCV 84.4 fL (80-100); Platelets 219 thou/uL (152-406); RBC Red Blood Cell Count 3.02 M/uL (4.33-5.43)
[2023-08-30 02:56] LABS: Albumin 2.9 g/dL (3.4-5.0); Potassium 3.2 mEq/L (3.5-5.1); Uric Acid 7.2 mg/dL (3.5-7.2)
[2023-08-30 04:44] LABS: UR PROTEIN 83.2 mg/dL (<11.9); Urine Protein/Creatinine Ratio 1.57 ratio (<0.15)
--- NOTE | 2023-08-30 07:23 | ECHO ---
HEIGHT: 5 ft 10 in WEIGHT: 191 lb 0.136 oz DATE OF STUDY: 08/29/[address]: Walter Pires MD 2-DIMENSIONAL: YES M.MODE: YES DOPPLER: YES COLOR FLOW: YES TDS: NO PORTABLE: YES DEFINITY: NO BUBBLE STUDY: NO DIAGNOSIS: CONGESTIVE HEART FAILURE/EXACERBATION CARDIAC HISTORY: CATHERIZATION: YES SURGERY: NO PROSTHETIC VALVE: NO PACEMAKER: NO MEASUREMENTS (cm) DIASTOLIC (NORMALS) SYSTOLIC (NORMALS) IVSd 1.2 (0.6-1.2) LA Diam 3.2 (1.9-4.0) LVEF 40-45% LVIDd 6.5 (3.5-5.7) LVIDs 5.5 (2.0-3.5) %FS 15% LVPWd 1.3 (0.6-1.2) Ao Diam 3.1 (2.0-3.7) 2 DIMENSIONAL ASSESSMENT: RIGHT ATRIUM: NORMAL LEFT ATRIUM: NORMAL RIGHT VENTRICLE: NORMAL LEFT VENTRICLE: DILATED TRICUSPID VALVE: MILD TRICUSPID REGURGITATION MITRAL VALVE: MILD MITRAL REGURGITATION PULMONIC VALVE: NORMAL AORTIC VALVE: MILD AORTIC INSUFFICIENCY PERICARDIAL EFFUSION: NONE AORTIC ROOT: NORMAL LEFT VENTRICULAR WALL MOTION: MILD ANTEROSEPTAL AND APICAL HYPOKINESIS. DOPPLER/COLOR FLOW: SEE BELOW. COMMENTS: 1. MILDLY DEPRESSED LEFT VENTRICULAR EJECTION FRACTION 40-45%. 2. MILD ANTEROSEPTAL AND APICAL HYPOKINESIS. 3. MILD MITRAL REGURGITATION. 4. MILD AORTIC INSUFFICIENCY 5. MILD TRICUSPID REGURGITATION 6. RIGHT VENTRICULAR SYSOTLIC PRESSURE IS 40-45mmHg (MILDLY ELEVATED) TECHNOLOGIST: OMAR DONOVAN
[2023-08-30] MEDS: INSULIN REGULAR (HUMAN) 100 UNIT/ML SQ SCH ×4 (07:30→21:00)
[2023-08-30] MEDS ORDERED: POTASSIUM CL SA 10 MEQ TAB PO ONE (09:00)
[2023-08-30] MEDS: FUROSEMIDE 40 MG/4 ML VIAL IV SCH (09:06)
[2023-08-30] MEDS: SACUBITRIL/VALSARTAN 24/26 MG TAB PO SCH (09:08)
--- NOTE | 2023-08-30 09:32 | P.PN ---
Date of Service: 08/30/23 Subjective: Feeling better today Breathing more comfortably on room air today ~70-75% back to normal per patient no acute events overnight afebrile ROS: 10 point ROS as noted above, otherwise negative Physical Exam: GEN: Alert, oriented HEENT: Normal conjunctiva, sclera anicteric CV: Regular rate and rhythm, trace edema Pulm: nonlabored respirations on room air at rest, Clear bilaterally ABD: Soft, nontender, nondistended Neuro: Normal speech, normal affect vitals reviewed Problem List: Acute on chronic systolic CHF NSTEMI h/o CAD s/p 2 stents CKD4 Suspected sleep apnea IDDM2 Hypertension Acute on chronic systolic CHF NSTEMI h/o CAD s/p 2 stents Denies chest pain. sees Machine Sole Leveler Dr. Hernandez CXR (08/28): moderate pulmonary edema repeat CXR ordered f/u opacities Troponins mildly elevated but trended flat, monitor on tele; suspect demand ischemia Echo (08/29): 40-45% EF, mild anteroseptal and apical hypokinesis, mild MR / TR / AI, mildly elevated right ventricular systolic pressure (40-45mmHG). Cardiology consulted - Dr. Bragg recommending for outpatient stress test Breathing improved with diuresis Continue IV lasix daily CKD4 Nephrology consulted as of Jun 2023: creatinine 2.7, GFR of 25 deemed secondary to diabetes nephropathy / proteinuric / cardiorenal syndrome Creatinine 2.8 -> 3.35 (08/30) Continue IV lasix 40 mg daily - decreased from 40 mg BID per nephro (08/30) pt with moderate pulm edema and syptomatic on admission, does not take diuretics at home anticipate lasix PO prescription on discharge renal u/s (08/30): pending, r/o obstruction Suspected sleep apnea Reports having sleep study scheduled next month in September IDDM2 Insulin sliding scale Hypertension confirm home meds, restart as appropriate Entresto dc'd per nephro 08/30 coreg / nitroglycerin added 08/30 VTE: heparin sq Code: Full Dispo: Home, ~1 day Pending nephro recommendations / improvement of renal function
--- NOTE | 2023-08-30 11:01 | RAD REPORT ---
EXAM DESCRIPTION: RAD - Chest Single View - 08/30/2023 10:44 am CLINICAL HISTORY: 1000 COMPARISON: Chest Single View dated 08/28/2023; Chest Single View dated 08/09/2023; Chest Single View dated 07/05/2023; Chest Single View dated 06/21/2023; Stone Protocol dated 06/21/2023 FINDINGS: Lines: None. Lungs: Improved aeration compared with the prior chest radiograph. There is still some vascular promi nence. Pleural: No significant pleural effusions or pneumothorax. Cardiac: Cardiomegaly. Mediastinum: Within normal limits. Bones: No acute fractures. Other: None IMPRESSION: Aeration lungs improved since 08/28/2023. This presumably represents improving interstit ial edema.
--- NOTE | 2023-08-30 11:58 | PN ---
Date of Progress Note: 08/30/2023 Subjective: Patient was admitted with acute kidney injury secondary to cardiorenal progression of th e disease. Patient was over volume. Patient was started on diuresis. Kidney function slightly decl ined compared to yesterday. Physical Examination: Vital Signs: Blood pressure of 160/83, pulse of 83, afebrile. Chest: Faint rales on the left base. Heart: S1, S2 regular. Abdomen: Soft, nontender. Extremities: No edema. Neurologic: Alert. No focality. Laboratory Data: Hemoglobin of 9. Sodium 140, potassium 3.2, bicarb 26, BUN 46, creatinine 3.3. GF R of 19. Uric acid 7.2. Calcium 7.4. Phosphorus 4, magnesium of 2. PTH 267. Current Medications: The patient is on include: 1.Heparin. 2.Entresto. 3.Lasix. 4.Zofran. Assessment And Plan: 1.Acute kidney injury on advanced chronic kidney disease secondary to cardiorenal with slow progress ion of the disease, nonoliguric. No hyperkalemia. Marginally overvolume. With decline in the kidne y function, I am going to go ahead and discontinue Entresto, decrease Lasix to once a day and I will follow up the patient closely. 2.I am going to go ahead and send for further followup to rule out any obstruction for the patient. 3.Diabetes, controlled. Follow up with primary. 4.Congestive heart failure with exacerbation. Currently, patient is on room air. Continue diuresis . Follow up with Cardiology. Decrease Lasix and discontinue Entresto as above. 5.Hypertension, controlled, not optimal with the presence of acute kidney injury. We will discontin ue Entresto, decrease Lasix. I am going to start the patient on beta dannielle and nitroglycerin and we will follow up. KEYANA/NEYDA Voice ID: [id number] Report ID: [id number]
[2023-08-30] MEDS: NITROGLYCERIN 0.2 MG/HR (5 MG) PATCH TD SCH (12:18)
[2023-08-30 13:34] LABS: Urine Bacteria <20 /HPF (<20); Urine Bilirubin NEGATIVE (Negative); Urine Blood 1+ (Negative); Urine Clarity Turbid (Clear); Urine Color Light-Yellow (Yellow); Urine Glucose NEGATIVE (Negative); Urine Mucus Slight /HPF (None Seen); Urine Protein 1+ (Negative); Urine RBC <5 /HPF (None Seen); Urine Urobilinogen Normal (Normal)
--- NOTE | 2023-08-30 14:27 | RAD REPORT ---
EXAM DESCRIPTION: US - Renal Ultrasound-Complete - 08/30/2023 1:12 pm CLINICAL HISTORY: SANTOS COMPARISON: Stone Protocol dated 06/21/2023 TECHNIQUE: Sonographic grayscale and color flow images of the kidneys and bladder were obtained. FINDINGS: Both kidneys are normal in size, shape, and echotexture. The right kidney measures 10.6 cm in length. No hydronephrosis, focal mass, or echogenic calculi. The left kidney measures 10 cm in length. No hydronephrosis, focal mass, or echogenic calculi. The urinary bladder is suboptimally distended contributing to some apparent wall thickening, without other suspicious abnormality. IMPRESSION: Unremarkable renal sonogram.
[2023-08-30] MEDS: carvediloL 6.25 MG TAB PO SCH (21:29)
[2023-08-30 21:40] VITALS: O2SAT 97
[2023-08-31] MEDS: HEPARIN 5000 UNIT/ML 1 ML VIAL SQ SCH ×2 (00:56→08:53)
[2023-08-31 03:41] LABS: RBC Red Blood Cell Count 3.12 M/uL (4.33-5.43)
[2023-08-31 04:23] LABS: Albumin 2.9 g/dL (3.4-5.0); Ferritin 244.6 ng/mL (26-388); Phosphorus 3.8 mg/dL (2.5-4.9); Potassium 3.4 mEq/L (3.5-5.1); Thyroid Stimulating Hormone 0.381 uIU/mL (0.358-3.740); Uric Acid 8.2 mg/dL (3.5-7.2)
[2023-08-31] MEDS: INSULIN REGULAR (HUMAN) 100 UNIT/ML SQ SCH ×3 (07:30→16:30)
[2023-08-31] MEDS: carvediloL 6.25 MG TAB PO SCH (08:54)
[2023-08-31] MEDS: NITROGLYCERIN 0.2 MG/HR (5 MG) PATCH TD SCH (08:55)
[2023-08-31] MEDS ORDERED: POTASSIUM 25 MEQ EFFERV TAB PO ONE (09:00)
[2023-08-31] MEDS ORDERED: FUROSEMIDE 40 MG/4 ML VIAL IV SCH (09:00)
--- NOTE | 2023-08-31 09:27 | P.PN ---
Date of Service: 08/31/23 Subjective: Feeling better today Breathing is okay. Seen ambulating around the nursing station on room air urine is clear per patient no acute events overnight afebrile ROS: 10 point ROS as noted above, otherwise negative Physical Exam: GEN: Alert, oriented HEENT: Normal conjunctiva, sclera anicteric CV: Regular rate and rhythm, trace edema Pulm: nonlabored respirations on room air at rest, Clear bilaterally ABD: Soft, nontender, nondistended Neuro: Normal speech, normal affect vitals reviewed Problem List: Acute on chronic systolic CHF NSTEMI h/o CAD s/p 2 stents CKD4 Suspected sleep apnea IDDM2 Hypertension Acute on chronic systolic CHF NSTEMI h/o CAD s/p 2 stents Denies chest pain. sees Detail Drafter Dr. Hernandez Troponins mildly elevated but trended flat, monitor on tele; suspect demand ischemia CXR (08/28): moderate pulmonary edema CXR (08/30): improving aeration Echo (08/29): 40-45% EF, mild anteroseptal and apical hypokinesis, mild MR / TR / AI, mildly elevated right ventricular systolic pressure (40-45mmHG). Cardiology consulted - Dr. Bragg recommending for outpatient stress test Breathing improved with diuresis Continue IV lasix daily CKD4 Nephrology consulted as of Jun 2023: creatinine 2.7, GFR of 25 deemed secondary to diabetes nephropathy / proteinuric / cardiorenal syndrome Creatinine 3.35 -> 3.48 (08/31) Continue IV lasix 40 mg daily - decreased from 40 mg BID per nephro (08/30) pt with moderate pulm edema and syptomatic on admission, does not take diuretics at home anticipate lasix PO prescription on discharge renal u/s (08/30): unremarkable Suspected sleep apnea Reports having sleep study scheduled next month in September IDDM2 Insulin sliding scale Hypertension confirm home meds, restart as appropriate Entresto dc'd per nephro 08/30 coreg / nitroglycerin added 08/30 VTE: heparin sq Code: Full Dispo: Home, ~1 day Pending nephro recommendations / improvement of renal function
[2023-08-31 13:29] LABS: Rheumatoid Factor NEG (NEG)
--- NOTE | 2023-08-31 13:44 | EKG ---
Test Date: 2023-08-28 Test Time: 21:57:26 Jail Keeper: NORMA MEASUREMENT RESULTS: Intervals: Rate: 96 IA: 178 QRSD: 90 QT: 366 QTc: 462 Docena: P: 39 IA: 178 QRS: 31 T: 98 INTERPRETIVE STATEMENTS: Normal sinus rhythm Nonspecific ST and T wave abnormality Prolonged QT Abnormal ECG Compared to ECG 08/09/2023 05:11:23 ST (T wave) deviation now present Prolonged QT interval now present Electronically Signed On 08-31-23 13:40:24 FAMILY NURSE by Arie Bragg
--- NOTE | 2023-08-31 15:12 | P.PN ---
Subjective Date of Service: 08/31/23 Chief Complaint: Shortness of breath Subjective: Other (He reports shortness of breath is much less.) Physical Examination - Vital Signs Temperature: 97.9 F Blood Pressure: 108/68 Pulse: 75 Respirations: 16 Pulse Ox (%): 98 - Physical Exam General: Other (appears as his stated age) HEENT: Atraumatic, Normocephalic Neck: Supple Respiratory: Other (symmetric chest expansion) Cardiovascular: No rubs, No murmurs Gastrointestinal: Soft and benign, No guarding Musculoskeletal: No clubbing Integumentary: No warmth Neurological: Normal tone Urinary: Other (No bladder distention) External genitalia: Deferred Rectal: Deferred Assessment And Plan - Plan 1. Acute kidney injury on advanced chronic kidney disease secondary to cardiorenal with slow progression of the disease, nonoliguric. No hyperkalemia. Marginally overvolume. With decline in the kidney function. Entresto on hold. continue Lasix at 40 mg by mouth twice a day. [place] by mouth fluid intake at least 2 L per day. 2. CHF exacerbation. Lasix & liberal po fluid intake as above. Cont cardioprudent meds. Check a random urine sodium and urine potassium to assess need for aldosterone dannielle therapy. 3. DM2. Mngt per primary team. 4. Hypertension. BP meds adjusted. 5. HypoK. KCl repletion prn. F/u urine chem.
[2023-08-31] MEDS ORDERED: FUROSEMIDE 40 MG TABLET PO SCH (17:00)
--- NOTE | 2023-08-31 17:25 | P.DS ---
Admission Date: 08/29/23 Discharge Date: 09/01/23 Disposition: ROUTINE DISCHARGE Discharge Condition: GOOD Reason for Admission: Shortness of breath Consultations: Cardiology - Dr. Bragg Nephrology - Dr. Jaci Morales Brief History of Present Illness: 72 yo M, PMH: chronic systolic heart failure, diabetes mellitus type 2 Patient presented to the emergency department with a complaint of progressive shortness of breath of 2 days duration. Patient also reported some chest tightness and palpitation. Chest x-ray done in the emergency department demonstrated pulmonary edema. Patient is on Entresto and metoprolol and stated he has not been on any maintenance Lasix therapy. EKG demonstrated sinus rhythm with nonspecific ST-T changes. Last echocardiogram was in 2021 and reported a EF of 31%. Patient given a dose of IV Lasix with partial improvement in his shortness of breath. Initial troponin mildly elevated to 83. Patient is hospitalized for further management. Hospital Course: Problem List: Acute on chronic systolic CHF NSTEMI h/o CAD s/p 2 stents CKD4 Suspected sleep apnea IDDM2 Hypertension Patient presented with worsening shortness of breath, chest tightness. Troponins were mildly elevated but trended flat. BNP on admission was ~17k. CXR demonstrated moderate pulm edema. Echo this hospitalization noted 40-45% EF, mild anteroseptal and apical hypokinesis, mild MR / TR / AI, mildly elevated right ventricular systolic pressure (40-45mmHG). EF improved from prior echo on record which noted EF: 35% Cardiology and nephrology were consulted. Patient was given IV lasix and had improvement of his symptoms. Patient was feeling better, breathing improved, and ambulating without issue. No further chest tightness. Discussed with Dr. Bragg who recommends patient get a stress test in the near future as outpatient for further evaluation. No further cardiac work up this hospitalization. Patient noted to have a history of CKD4 secondary to diabetes nephropathy / proteinuric / cardiorenal syndrome. Patient's renal function improved with diuresis. Initially received 40mg IV lasix twice daily. Nephrology was consulted. Lasix was decreased to IV 40 mg daily from twice daily, entresto was held, and creatinine remained ~stable. Creatinine on discharge: 3.4. Discussed with Nephrology, recommended to discharge home on oral lasix 40mg twice daily with close follow up and stopping Entresto for now. Advised to repeat blood work in ~1 week to monitor renal function. Medications: New: Lasix 40mg twice daily Stop: Entresto for now Follow up with Nephrology in a few weeks for further adjustment of above medications. Monitor weight daily. IF notice ~4-5 lb weight gain and signs/symptoms of volume overload, recommended to take an extra dose of lasix. If requiring to take extra lasix for two days in a row, recommend calling PCP's office. Follow up: PCP 3-5 days Cardiology in ~2 weeks Nephrology in ~2 weeks Physical Exam: GEN: Alert, oriented HEENT: Normal conjunctiva, sclera anicteric CV: Regular rate and rhythm, trace edema Pulm: nonlabored respirations on room air at rest, Clear bilaterally ABD: Soft, nontender, nondistended Neuro: Normal speech, normal affect Vital Signs/Physical Exam: Temp Pulse Resp BP Pulse Ox 97.3 F 89 16 116/63 95 08/31/23 16:00 08/31/23 17:08 08/31/23 16:00 08/31/23 17:08 08/31/23 16:00 Laboratory Data at Discharge: WBC 5.80 thou/uL (4.3-10.9) 08/30/23 01:25 Hgb 9.0 g/dL (13.6-17.9) L 08/30/23 01:25 Hct 25.5 % (39.6-49.0) L 08/30/23 01:25 Plt Count 219 thou/uL (152-406) 08/30/23 01:25 PT 13.6 SECONDS (9.5-12.5) H 08/28/23 22:07 INR 1.24 08/28/23 22:07 Sodium 138 mEq/L (136-145) 08/31/23 02:42 Potassium 4.0 mEq/L (3.5-5.1) D 08/31/23 14:44 BUN 55 mg/dL (7-18) H 08/31/23 02:42 Creatinine 3.48 mg/dL (0.70-1.30) H 08/31/23 02:42 Glucose 119 mg/dL (74-106) H 08/31/23 02:42 Uric Acid 8.2 mg/dL (3.5-7.2) H 08/31/23 02:42 Phosphorus 3.8 mg/dL (2.5-4.9) 08/31/23 02:42 Magnesium 2.0 mg/dL (1.6-2.4) 08/30/23 01:25 Total Bilirubin 0.6 mg/dL (0.2-1.0) 08/28/23 22:35 AST 15 U/L (15-37) 08/28/23 22:35 ALT 24 U/L (16-61) 08/28/23 22:35 Alkaline Phosphatase 104 U/L (45-117) 08/28/23 22:35 Triglycerides 136 mg/dL (<150) 08/30/23 01:25 Cholesterol 159 mg/dL (<200) 08/30/23 01:25 HDL Cholesterol 50 mg/dL (40-60) 08/30/23 01:25 Cholesterol/HDL Ratio 3.18 08/30/23 01:25 Home Medications: Metoprolol Succinate 1 tab PO DAILY 08/29/23 Furosemide 40 mg PO BID 30 Days #60 tab 08/31/23 New Medications: Furosemide 40 mg PO BID 30 Days #60 tab Physician Discharge Instructions: Patient presented with worsening shortness of breath, chest tightness. Troponins were mildly elevated but trended flat. BNP on admission was ~17k. CXR demonstrated moderate pulm edema. Echo this hospitalization noted 40-45% EF, mild anteroseptal and apical hypokinesis, mild MR / TR / AI, mildly elevated right ventricular systolic pressure (40-45mmHG). EF improved from prior echo on record which noted EF: 35% Cardiology and nephrology were consulted. Patient was given IV lasix and had improvement of his symptoms. Patient was feeling better, breathing improved, and ambulating without issue. No further chest tightness. Discussed with Dr. Bragg who recommends patient get a stress test in the near future as outpatient for further evaluation. No further cardiac work up this hospitalization. Patient noted to have a history of CKD4 secondary to diabetes nephropathy / proteinuric / cardiorenal syndrome. Patient's renal function improved with diuresis. Initially received 40mg IV lasix twice daily. Nephrology was consulted. Lasix was decreased to IV 40 mg daily from twice daily, entresto was held, and creatinine remained ~stable. Creatinine on discharge: 3.4. Discussed with Nephrology, recommended to discharge home on oral lasix 40mg twice daily with close follow up and stopping Entresto for now. Advised to repeat blood work in ~1 week to monitor renal function. Medications: New: Lasix 40mg twice daily Stop: Entresto for now Follow up with Nephrology in a few weeks for further adjustment of above medications. Monitor weight daily. IF notice ~4-5 lb weight gain and signs/symptoms of volume overload, recommended to take an extra dose of lasix. If requiring to take extra lasix for two days in a row, recommend calling PCP's office. Follow up: PCP 3-5 days Cardiology in ~2 weeks Nephrology in ~2 weeks Followup: Deisy Martinez MD [ACTIVE - CAN ADMIT] - 1-2 Weeks Arie Bragg MD [ACTIVE - CAN ADMIT] - 1-2 Weeks Nel Henley [Primary Care Provider] - Time spent managing pt's care (in minutes): 45
[2023-09-01 08:18] VITALS: BP 108/68; TEMP 97.9
[2023-09-04 10:47] LABS: Albumin, (SPE) 3.1 g/dL (3.8-4.8); Alpha-1-Globulins 0.4 g/dL (0.2-0.3); Alpha-2-Globulins 1.1 g/dL (0.5-0.9); Gamma Globulins 0.7 g/dL (0.8-1.7); INTERPRETATION REPORT
== END 2023-08-31 17:20 | disposition home or self-care (01) | DRG 280 ==
LOC: ER 21:26 → ERHOLD 08-29 01:17 → 2ND 08-29 15:38
PROVIDERS: ADMIT Internal Medicine; ATTEND Hospitalist
DX: I13.0 Hypertensive heart and chronic kidney disease with heart failure and stage 1 through stage 4 chronic kidney disease, or unspecified chronic kidney disease (principal); I21.4 Non-ST elevation (NSTEMI) myocardial infarction; I50.23 Acute on chronic systolic (congestive) heart failure; N17.9 Acute kidney failure, unspecified; N18.4 Chronic kidney disease, stage 4 (severe); E11.22 Type 2 diabetes mellitus with diabetic chronic kidney disease; E11.40 Type 2 diabetes mellitus with diabetic neuropathy, unspecified; Z79.4 Long term (current) use of insulin; I25.10 Atherosclerotic heart disease of native coronary artery without angina pectoris; E78.5 Hyperlipidemia, unspecified; G47.30 Sleep apnea, unspecified; E87.6 Hypokalemia; Z95.5 Presence of coronary angioplasty implant and graft; Z86.16 Personal history of COVID-19
CPT/HCPCS: 36415; 71045; 76770; 80048; 80061; 80069; 80076; 81001; 82570; 82607; 82728; 82947; 83520; 83540; 83735; 83880; 83935; 83970; 84132; 84156; 84165; 84300; 84443; 84466; 84484; 84550; 85025; 85044; 85610; 86021; 86038; 86160; 86225; 86430; 86803; 93005; 93306; 94760; 96374; 96375; 99285; J1644; J1815; J1940; J2270; J2405

== ENCOUNTER → 2023-11-05 | Emergency (ER) | payer OTHER ==
[2023-11-05 17:55] LABS: SARS-CoV-2 Antigen Rapid Res Negative (Negative)
--- NOTE | 2023-11-05 18:15 | RAD REPORT ---
EXAM DESCRIPTION: Kell Buckner And Lat (2 Views)11/05/2023 5:43 pm CLINICAL HISTORY: Cough COMPARISON: August 2023 FINDINGS: Mild bilateral pulmonary opacities Small right pleural effusion Heart is mildly enlarged IMPRESSION: Mild CHF
--- NOTE | 2023-11-05 18:18 | ER ---
Nurse's Notes [facility] Name: Sylvain Veronica Age: 73 yrs Sex: Male : 1950 Arrival Date: 11/05/2023 Time: 16:33 Bed IW6 Private MD: Diagnosis: Acute upper respiratory infection, unspecified Presentation: 11/04 17:27 Chief complaint: Patient states: I have had a cough and runny nose with congestion and kd3 i feel a little sore. I feel like im going to vomit sometimes but nothing comes up. My stomach is also sore. Coronavirus screen: Vaccine status: Patient reports receiving the 2nd dose of the covid vaccine. Ebola Screen: No symptoms or risks identified at this time. Initial Sepsis Screen: Does the patient meet any 2 criteria? No. Patient's initial sepsis screen is negative. Does the patient have a suspected source of infection? No. Patient's initial sepsis screen is negative. Risk Assessment: Do you want to hurt yourself or someone else? Patient reports no desire to harm self or others. Onset of symptoms was November 05, 2023. 17:27 Method Of Arrival: Ambulatory kd3 17:27 Acuity: JACKIE 4 kd3 Triage Assessment: 17:29 General: Appears in no apparent distress. Behavior is calm, cooperative. Pain: kd3 Complains of pain in abdomen. Historical: - Allergies: 17:29 No Known Allergies; kd3 - PMHx: 17:29 Congestive heart failure; Systolic; Hypertensive disorder; kidney disease; CKD 3; kd3 Diabetes - IDDM; - PSHx: 17:29 cardiac stents; Appendectomy; Cholecystectomy; kd3 - Immunization history:: Adult Immunizations up to date. - Social history:: Smoking status: Patient denies any tobacco usage or history of. Screenin:29 [facility] ED Fall Risk Assessment (Adult) History of falling in the last 3 months, as6 including since admission No falls in past 3 months (0 pts) Confusion or Disorientation No (0 pts) Intoxicated or Sedated No (0 pts) Impaired Gait No (0 pts) Mobility Assist Device Used No (0 pt) Altered Elimination No (0 pt) Score/Fall Risk Level 0 - 2 = Low Risk Oriented to surroundings, Maintained a safe environment, Educated pt \T\ family on fall prevention, incl call for assistance when getting out of bed, Assessed \T\ reinforced patient's understanding of fall precautions. Abuse screen: Denies threats or abuse. Denies injuries from another. Nutritional screening: No deficits noted. Tuberculosis screening: No symptoms or risk factors identified. Assessment: 18:29 Reassessment: Patient appears in no apparent distress at this time. Patient and/or as6 family updated on plan of care and expected duration. Pain level reassessed. Patient is alert, oriented x 3, equal unlabored respirations, skin warm/dry/pink. Vital Signs: 17:27 BP 158 / 86; Pulse 104; Resp 16; Temp 98.6(O); Pulse Ox 99% ; Weight 83.91 kg; Height 5 kd3 ft. 10 in. ; 18:30 Pulse 88; Pulse Ox 100% on R/A; as6 17:27 Body Mass Index 26.54 (83.91 kg, 177.8 cm) kd3 ED Course: 16:37 Patient arrived in ED. rg4 17:04 Estefany Amaya PA-C is PHCP. sb4 17:04 Endy Blake MD is Attending Physician. sb4 17:05 Estefany Amaya PA-C is PHCP. sb4 17:05 Endy Blake MD is Attending Physician. sb4 17:29 Triage completed. kd3 17:29 Arm band placed on right wrist. kd3 17:45 Chest Pa And Lat (2 Views) XRAY In Process Unspecified. EDMS 18:30 Patient has correct armband on for positive identification. Provided Education on: rx as6 teaching. 18:30 No provider procedures requiring assistance completed. Patient did not have IV access as6 during this emergency room visit. Administered Medications: No medications were administered Medication: 18:30 VIS not applicable for this client. as6 Outcome: 18:17 Discharge ordered by MD. sb4 18:30 Discharged to home ambulatory, as6 18:30 Condition: stable 18:30 Discharge instructions given to patient, Instructed on discharge instructions, follow up and referral plans. medication usage, Demonstrated understanding of instructions, follow-up care, medications, Prescriptions given X 2, 18:31 Patient left the ED. as6 Signatures: Dispatcher [employer] EDMN Kandis Rodriguez rg4 Yoel Martinez RN RN as6 Malissa Young RN RN kd3 Brown, Estefany, PA-C PA-C sb4
--- NOTE | 2023-11-05 18:18 | EDPHYS ---
Physician Documentation [facility] Name: Sylvain Veronica Age: 73 yrs Sex: Male : 1950 Arrival Date: 11/05/2023 Time: 16:33 Bed IW6 Private MD: ED Physician Endy Blake HPI: 11/04 17:29 This 73 yrs old Male presents to ER via Ambulatory with complaints of Flu sb4 Symptoms. 17:29 Patient reports runny nose, chest congestion, cough, nausea, and subjective fever that sb4 began this morning. He has not taken any [id number] medications. He has not vomited. He denies any chest pain. He denies any sick contacts. No other associated signs symptoms, no alleviating or aggravating factors. Historical: - Allergies: 17:29 No Known Allergies; kd3 - PMHx: 17:29 Congestive heart failure; Systolic; Hypertensive disorder; kidney disease; CKD 3; kd3 Diabetes - IDDM; - PSHx: 17:29 cardiac stents; Appendectomy; Cholecystectomy; kd3 - Immunization history:: Adult Immunizations up to date. - Social history:: Smoking status: Patient denies any tobacco usage or history of. ROS: 17:29 Cardiovascular: Negative for chest pain, palpitations, and edema, sb4 17:29 Constitutional: Positive for fever, 17:29 ENT: Positive for rhinorrhea, 17:29 Respiratory: Positive for cough, 17:29 Abdomen/GI: Positive for nausea, 17:29 All other systems are negative, Exam: 17:29 Constitutional: This is a well developed, well nourished patient who is awake, alert, sb4 and in no acute distress. Head/Face: Normocephalic, atraumatic. Eyes: Extra-ocular motions intact. Periorbital areas with no swelling, redness, or edema. ENT: Mucous membranes moist. Cardiovascular: Regular rate and rhythm with a normal S1 and S2. Respiratory: Lungs have equal breath sounds bilaterally, clear to auscultation and percussion. No rales, rhonchi or wheezes noted. No increased work of breathing, no retractions or nasal flaring. Abdomen/GI: Soft, non-tender, no distension. Skin: Warm, dry with normal turgor. Normal color with no rashes, no lesions, and no evidence of cellulitis. MS/ Extremity: Pulses equal, no cyanosis. Neurovascular intact. Full, normal range of motion. Neuro: Awake and alert, GCS 15, oriented to person, place, time, and situation. Motor strength 5/5 in all extremities. Sensory grossly intact. Vital Signs: 17:27 BP 158 / 86; Pulse 104; Resp 16; Temp 98.6(O); Pulse Ox 99% ; Weight 83.91 kg; Height 5 kd3 ft. 10 in. ; 18:30 Pulse 88; Pulse Ox 100% on R/A; as6 17:27 Body Mass Index 26.54 (83.91 kg, 177.8 cm) kd3 MDM: 17:22 Patient medically screened. sb4 17:29 Differential diagnosis: viral Infection, bacterial infection, URI, bronchitis, sb4 pneumonia. 18:16 Data reviewed: vital signs, nurses notes, lab test result(s), radiologic studies, and sb4 as a result, I will discharge patient. Historians other than the Patient: Daughter/Son: daughter. Counseling: I had a detailed discussion with the patient and/or guardian regarding the historical points, exam findings, and any diagnostic results supporting the discharge/admit diagnosis, lab results, radiology results, to return to the emergency department if symptoms worsen or persist or if there are any questions or concerns that arise at home. 03 17:29 Order name: SARS RAPID; Complete Time: 17:56 sb4 11/04 17:29 Order name: Flu; Complete Time: 18:13 sb4 11/04 17:29 Order name: Chest Pa And Lat (2 Views) XRAY; Complete Time: 18:16 sb4 Administered Medications: No medications were administered Disposition: 11/05 07:14 Co-signature as Attending Physician, Endy Blake MD I reviewed the patient's care rn provided by the Advanced Practice Provider and agree with the diagnosis and treatment plan. Disposition Summary: 11/05/23 18:17 Discharge Ordered Notes: Location: Home sb4 Problem: new sb4 Symptoms: are unchanged sb4 Condition: Stable sb4 Diagnosis - Acute upper respiratory infection, unspecified sb4 Followup: sb4 - With: Emergency Department - When: As needed - Reason: Trouble breathing, Worsening of condition Discharge Instructions: - Discharge Summary Sheet sb4 - Viral Respiratory Infection, [id number] sb4 Forms: - Thank You Letter sb4 - Patient Portal Instructions sb4 - Leadership Thank You Letter sb4 Prescriptions: - albuterol sulfate 90 mcg/actuation Inhalation HFA Aerosol Inhaler - inhale 1 puff INHALATION route every 3 to 6 hours as needed for bronchospasm; sb4 administer via ventilator; 1 Applicator; Refills: 0, Product Selection Permitted - Guaifenesin AC 10-100 mg/5 mL Oral Liquid - take 10 milliliters ORAL route every 4 hours As needed; 240 milliliter; sb4 Refills: 0, Product Selection Permitted Signatures: Dispatcher [employer] Endy Saldivar MD MD rn Doucette, Kyli, RN RN ben3 Estefany Amaya PA-C PA-C sb4
[2023-11-05 18:50] VITALS: BP 158/86; TEMP 98.6; O2SAT 100
== END ==
LOC: ER 16:33
DX: J06.9 Acute upper respiratory infection, unspecified (principal); Z11.52 Encounter for screening for COVID-19; E11.22 Type 2 diabetes mellitus with diabetic chronic kidney disease; I13.0 Hypertensive heart and chronic kidney disease with heart failure and stage 1 through stage 4 chronic kidney disease, or unspecified chronic kidney disease; N18.30 Chronic kidney disease, stage 3 unspecified; I50.9 Heart failure, unspecified; Z95.818 Presence of other cardiac implants and grafts
CPT/HCPCS: 36415; 71046; 87804; 87811; 99283

== ENCOUNTER 2023-11-11 17:12 | Observation (INO) | payer OTHER ==
[2023-11-11] MEDS ORDERED: ONDANSETRON 4 MG/2 ML VIAL ONE (18:07)
[2023-11-11] MEDS ORDERED: hydrOXYzine HCL 25 MG TAB ONE (18:07)
[2023-11-11 18:17] LABS: Absolute Eosinophils 0.1 K/uL (0-0.5); Absolute Lymphocytes (CBC) 0.5 K/uL (0.7-4.9); Absolute Monocytes 0.4 K/uL (0.1-1.3); Absolute Neutrophil 7.5 K/uL (1.8-8.0); Basophils % 0.5 % (0-1.3); Eosinophils % 0.7 % (0-4.4); Hemoglobin 8.4 g/dL (13.6-17.9); Lymphocytes % 5.9 % (15.3-44.8); MCH 27.2 pg (27.0-35.0); MCHC 33.5 g/dL (32.0-36.0); MCV 81.2 fL (80-100); MPV 7.9 fL (7.6-11.3); Monocytes % 4.4 % (3.3-12.3); Neutrophils % 88.5 % (41.7-73.7); Platelets 260 thou/uL (152-406); RBC Red Blood Cell Count 3.09 M/uL (4.33-5.43); Red Cell Distribution Width 14.4 % (12.1-15.2)
[2023-11-11 18:22] LABS: PT Prothrombin Time 13.6 SECONDS (9.5-12.5); PTT, Activated Partial Thromb 33.6 SECONDS (24.3-36.9); Protime INR 1.24
[2023-11-11 18:33] LABS: Troponin High Sensitivity 74.5 pg/mL (<58.9)
[2023-11-11 18:39] LABS: Albumin 3.3 g/dL (3.4-5.0); Albumin/Globulin Ratio 0.8 (1.1-1.8); Anion Gap 14.6 mEq/L (5.0-15.0); Bilirubin Total 0.6 mg/dL (0.2-1.0); Globulin 4.4 g/dL (2.3-3.5); Potassium 4.6 mEq/L (3.5-5.1); Protein, Total 7.7 g/dL (6.4-8.2)
--- NOTE | 2023-11-11 19:06 | RAD REPORT ---
EXAM DESCRIPTION: CT - Chest Abd Pelvis Wo Con - 11/11/2023 6:25 pm CLINICAL HISTORY: Cough;Dyspnea;Pain COMPARISON: Chest Angio dated 06/26/2020; Chest Pa And Lat (2 Views) dated 11/05/2023 TECHNIQUE: Thin axial CT images of the chest, abdomen, and pelvis, performed without IV contrast. M ultiplanar reformats were generated and reviewed. All CT scans are performed using dose optimization technique as appropriate and may include automated exposure control or mA/KV adjustment according to patient size. FINDINGS: The lungs show no focal consolidation. Bilateral hegl-[id number] layering pleural effusio ns. Patchy ground-glass opacities and central interstitial prominence. No pneumothorax. Mild cardiome kit.No intrathoracic adenopathy. The liver, spleen, pancreas, adrenal glands and kidneys are within normal limits apart from mild nons pecific perinephric fat stranding. Status post cholecystectomy. Mild fluid distention of the duodenum and proximal jejunum, with no focal transition point to suggest obstruction. No free air, free fluid or abscess. Normal appendix. No pathologic lymphadenopathy in the abdomen or pelvis. Bilateral inguinal hernias containing fat. No worrisome osseous finding. IMPRESSION: Nonspecific mild tension although proximal jejunum may suggest mild ileus. No evidence of obstruction. Bilateral layering pleural effusions and mild patchy ground-glass opacification with central intersti tial prominence, findings which suggest central congestion or pulmonary edema.
--- NOTE | 2023-11-11 20:13 | ER ---
Nurse's Notes [facility] Name: Sylvain Veronica Age: 73 yrs Sex: Male : 1950 Arrival Date: 11/11/2023 Time: 17:12 Bed 20 Private MD: Diagnosis: Ileus, unspecified;Unspecified combined systolic (congestive) and diastolic (congestive) heart failure Presentation: 11/10 17:18 Chief complaint: Abdominal pain, nausea, headache, and chills x 4 hours, SOB and cough hb x 2 months. Coronavirus screen: At this time, the client does not indicate any symptoms associated with coronavirus-19. Ebola Screen: No symptoms or risks identified at this time. Initial Sepsis Screen: Does the patient meet any 2 criteria? No. Patient's initial sepsis screen is negative. Does the patient have a suspected source of infection? No. Patient's initial sepsis screen is negative. Risk Assessment: Do you want to hurt yourself or someone else? Patient reports no desire to harm self or others. 17:18 Method Of Arrival: Ambulatory hb 17:19 Onset of symptoms was November 11, 2023. hb 17:21 Acuity: JACKIE 2 hb Triage Assessment: 17:23 General: Appears in no apparent distress. Behavior is calm, cooperative. Pain: Pain hb currently is 5 out of 10 on a pain scale. Neuro: Level of Consciousness is awake, alert, obeys commands, Oriented to person, place, time, situation. Cardiovascular: Patient's skin is warm and dry. Respiratory: Reports shortness of breath cough that is Respiratory effort is even, mildly labored Respiratory pattern is tachypnea. GI: Reports upper abdominal pain, nausea. Historical: - Allergies: 17:20 No Known Allergies; hb - Home Meds: 17:20 Metoprolol Tartrate Oral [Active]; atorvastatin oral [Active]; Furosemide Oral [Active];hb - PMHx: 17:20 Congestive heart failure; Systolic; Diabetes - IDDM; Hypertensive disorder; kidney hb disease; CKD 3; - PSHx: 17:20 Appendectomy; cardiac stents; Cholecystectomy; hb - Immunization history:: Adult Immunizations up to date. - Social history:: Smoking status: Patient denies any tobacco usage or history of. Screenin:21 [facility] ED Fall Risk Assessment (Adult) History of falling in the last 3 months, kc6 including since admission No falls in past 3 months (0 pts) Confusion or Disorientation No (0 pts) Intoxicated or Sedated No (0 pts) Impaired Gait No (0 pts) Mobility Assist Device Used No (0 pt) Altered Elimination No (0 pt) Score/Fall Risk Level 0 - 2 = Low Risk. Abuse screen: Denies threats or abuse. Denies injuries from another. Nutritional screening: No deficits noted. Tuberculosis screening: No symptoms or risk factors identified. Assessment: 18:21 General: Appears in no apparent distress. uncomfortable, well groomed, well developed, kc6 Behavior is calm, cooperative, appropriate for age, Reports feeling ill for 0-12 hours, fatigue for 0-12 hours. Pain: Complains of pain in right upper quadrant and left upper quadrant. Neuro: Level of Consciousness is awake, alert, obeys commands, Oriented to person, place, time, situation, Appropriate for age. Cardiovascular: Denies chest pain, Heart tones S1 S2 present Capillary refill < 3 seconds. Respiratory: Reports shortness of breath cough that is Airway is patent Trachea midline Respiratory effort is even, unlabored, Respiratory pattern is regular, symmetrical. GI: Abdomen is round non-distended, Bowel sounds present X 4 quads. Abd is soft X 4 quads Abdomen is tender to palpation in right upper quadrant and left upper quadrant Reports upper abdominal pain, nausea, vomiting, Patient currently denies diarrhea. : No signs and/or symptoms were reported regarding the genitourinary system. EENT: No signs and/or symptoms were reported regarding the EENT system. Derm: No signs and/or symptoms reported regarding the dermatologic system. Skin is intact, is healthy with good turgor, Skin is dry, Skin is pale, Skin temperature is warm. Musculoskeletal: No signs and/or symptoms reported regarding the musculoskeletal system. Circulation, motion, and sensation intact. Capillary refill < 3 seconds, Range of motion: intact in all extremities. 19:10 General: Appears in no apparent distress. uncomfortable, Behavior is calm, cooperative, jw7 Reports feeling ill for 0-12 hours, fatigue for 0-12 hours. Pain: Complains of pain in abdomen Pain does not radiate. Pain currently is 4 out of 10 on a pain scale. Quality of pain is described as aching, Pain began suddenly, Is continuous. Neuro: Level of Consciousness is awake, alert, obeys commands, Oriented to person, place, time, situation. Cardiovascular: Denies chest pain, Heart tones S1 S2 present Capillary refill < 3 seconds Clubbing of nail beds is absent JVD is absent Patient's skin is warm and dry. Respiratory: Reports shortness of breath cough that is Airway is patent Trachea midline Respiratory effort is even, unlabored, Respiratory pattern is regular, symmetrical. GI: Abdomen is round non-distended, Bowel sounds present X 4 quads. Abd is soft X 4 quads Abdomen is tender to palpation in right upper quadrant and left upper quadrant Reports upper abdominal pain, nausea, vomiting. : No deficits noted. No signs and/or symptoms were reported regarding the genitourinary system. EENT: No deficits noted. No signs and/or symptoms were reported regarding the EENT system. Derm: Skin is intact, is healthy with good turgor, Skin is dry, Skin is pale, Skin temperature is warm. Musculoskeletal: Circulation, motion, and sensation intact. Range of motion: intact in all extremities. 20:31 Reassessment: Patient appears in no apparent distress at this time. No changes from jw7 previously documented assessment. Patient and/or family updated on plan of care and expected duration. Pain level reassessed. Patient is alert, oriented x 3, equal unlabored respirations, skin warm/dry/pink. Vital Signs: 17:21 BP 158 / 84; Pulse 106; Resp 28; Temp 98.6(O); Pulse Ox 97% on R/A; Weight 83.91 kg; hb Height 5 ft. 10 in. ; Pain 5/10; 18:23 BP 145 / 81; Pulse 94; Resp 23 S; Pulse Ox 93% on R/A; kc6 18:56 BP 124 / 65; Pulse 97; Resp 19 S; Pulse Ox 98% on R/A; kc6 19:15 BP 127 / 68; Pulse 99; Resp 19 S; Pulse Ox 94% on R/A; jw7 20:15 BP 132 / 68; Pulse 111; Resp 19 S; Pulse Ox 98% on R/A; jw7 17:21 Body Mass Index 26.54 (83.91 kg, 177.8 cm) hb 17:21 Pain Scale: Adult hb ED Course: 17:15 Patient arrived in ED. im 17:16 Yoana Chaparro FNP-C is [facility]. kb 17:16 Ashley Finnegan MD is Attending Physician. kb 17:21 Arm band placed on. hb 17:23 Triage completed. hb 17:40 Xuan Calhoun, CHUCK is Primary Nurse. kc6 18:06 Inserted saline lock: 20 gauge in right wrist, using aseptic technique. Blood kc6 collected. Patient maintains SpO2 saturation greater than 95% on room air. 18:23 Patient has correct armband on for positive identification. Placed in gown. Bed in low kc6 position. Call light in reach. Side rails up X2. Adult w/ patient. Client placed on continuous cardiac and pulse oximetry monitoring. NIBP monitoring applied. electric utility lineworker on. 18:27 CT Chest Abdomen Pelvis W/O Contrast In Process Unspecified. EDMS 19:00 Provided Education on: Use of Call Light. jw7 20:12 Karina Kemp MD is Hospitalizing Provider. kb 21:04 Assisted to bathroom. ty 11/11 00:00 No provider procedures requiring assistance completed. jw7 00:00 Patient admitted, IV remains in place. jw7 03:28 Warm blanket given. ty Administered Medications: 11/10 18:21 Drug: Ondansetron IVP 4 mg IVP once; over 2 minutes Route: IVP; Site: right wrist; kc6 11/11 01:09 Follow up: Response: No adverse reaction; Marked relief of symptoms; Nausea is decreasedjw7 11/10 18:21 Drug: hydrOXYzine PO 25 mg PO once Route: PO; kc6 11/11 01:09 Follow up: Response: No adverse reaction; Marked relief of symptoms jw7 11/10 20:31 Drug: Furosemide IVP 20 mg IVP once; give over 2 minutes Route: IVP; Site: right wrist; jw7 11/11 01:08 Follow up: Response: No adverse reaction jw7 Medication: 00:00 VIS not applicable for this client. jw7 Outcome: 11/10 20:13 Decision to Hospitalize by Provider. kb 11/11 00:00 Admitted to ER Hold. [facility]. jw7 Condition: stable Instructed on the need for admit, Demonstrated understanding of instructions, 04:55 Patient left the ED. jb4 Signatures: Dispatcher [employer] EDIA Yoana Chaparro FNP-C FNP-CkLe Nayak RN RN Wai Harper RN RN jb4 Katrin Black, RN RN jw7 Xuan Calhoun RN RN kc6 Jacqueline Colby Tylor ty Corrections: (The following items were deleted from the chart) 11/10 17:20 17:18 Chief complaint: N/V, SOB, chills hb hb 17:23 17:18 Chief complaint: Abdominal pain, nausea, and chills x 4 hours, SOB and cough x 2 hb months. hb
--- NOTE | 2023-11-11 20:13 | EDPHYS ---
Physician Documentation [facility] Name: Sylvain Veronica Age: 73 yrs Sex: Male : 1950 Arrival Date: 11/11/2023 Time: 17:12 Bed 20 Private MD: ED Physician Ashley Finnegan HPI: 11/10 20:11 This 73 yrs old Male presents to ER via Ambulatory with complaints of Nausea, kb Cough, Shortness Of Breath. 20:11 Patient is a 73-year-old male who presents for cough and shortness of breath for 2 kb weeks. States shortness of breath is worse on exertion and lying flat and has been getting worse since onset. Also reports abdominal pain, nausea and chills that started 4 hours prior to arrival. Daughter states patient told her he felt like he was going to pass out so that prompted her to bring him to the emergency department. Patient denies chest pain. Historical: - Allergies: 17:20 No Known Allergies; hb - Home Meds: 17:20 Metoprolol Tartrate Oral [Active]; atorvastatin oral [Active]; Furosemide Oral [Active];hb - PMHx: 17:20 Congestive heart failure; Systolic; Diabetes - IDDM; Hypertensive disorder; kidney hb disease; CKD 3; - PSHx: 17:20 Appendectomy; cardiac stents; Cholecystectomy; hb - Immunization history:: Adult Immunizations up to date. - Social history:: Smoking status: Patient denies any tobacco usage or history of. ROS: 20:09 Constitutional: As per HPI kb Exam: 20:09 Constitutional: This is a well developed, well nourished patient who is awake, alert, kb and in no acute distress. Head/Face: Normocephalic, atraumatic. ENT: Moist Mucous membranes Cardiovascular: Regular rate Skin: Warm, dry with normal turgor. Normal color. MS/ Extremity: Pulses equal, no cyanosis. Neurovascular intact. Full, normal range of motion. Neuro: Awake and alert, GCS 15, oriented to person, place, time, and situation. Moves all extremities. Normal gait. 20:09 Respiratory: mild respiratory distress is noted, Respirations: labored breathing, that is mild, Breath sounds: are clear throughout, 20:09 Abdomen/GI: Inspection: abdomen appears normal, Bowel sounds: normal, Palpation: soft, in all quadrants, mild abdominal tenderness, in all quadrants, 20:13 Cardiovascular: Edema: 1+ edema to lower extremities, kb Vital Signs: 17:21 BP 158 / 84; Pulse 106; Resp 28; Temp 98.6(O); Pulse Ox 97% on R/A; Weight 83.91 kg; hb Height 5 ft. 10 in. ; Pain 5/10; 18:23 BP 145 / 81; Pulse 94; Resp 23 S; Pulse Ox 93% on R/A; kc6 18:56 BP 124 / 65; Pulse 97; Resp 19 S; Pulse Ox 98% on R/A; kc6 19:15 BP 127 / 68; Pulse 99; Resp 19 S; Pulse Ox 94% on R/A; jw7 20:15 BP 132 / 68; Pulse 111; Resp 19 S; Pulse Ox 98% on R/A; jw7 17:21 Body Mass Index 26.54 (83.91 kg, 177.8 cm) hb 17:21 Pain Scale: Adult hb MDM: 17:16 Patient medically screened. kb 20:09 Differential diagnosis: Nonspecific abd pain, CHF exacerbation, uri, abnormal ekg, kb ileus, bowel obstruction. Data reviewed: vital signs, nurses notes. Consideration of Admission/Observation Patient was admitted/placed on observation. Escalation of care including admission/observation considered. Management of patient was discussed with the following: Hospitalist: Dr Kemp accepts pt for admission. Historians other than the Patient: Daughter/Son: daughter. Counseling: I had a detailed discussion with the patient and/or guardian regarding the historical points, exam findings, and any diagnostic results supporting the discharge/admit diagnosis, lab results, radiology results, the need for further work-up and treatment in the hospital. 11/10 17:22 Order name: Blood Culture Adult (2) kb 11/10 17:22 Order name: CBC with Diff; Complete Time: 20:41 kb 11/10 17:22 Order name: CMP; Complete Time: 18:57 kb 11/10 17:22 Order name: Lactate w/ 2H reflex if indic.; Complete Time: 18:57 kb 11/10 17:22 Order name: Protime (+inr); Complete Time: 18:26 kb 11/10 17:22 Order name: Ptt, Activated; Complete Time: 18:26 kb 11/10 17:27 Order name: Troponin HS; Complete Time: 18:57 kb 11/10 17:27 Order name: BNP; Complete Time: 18:57 kb 11/10 20:29 Order name: CBC Smear Scan; Complete Time: 20:41 EDMS 11/10 22:19 Order name: CBC with Automated Diff EDMS 11/10 22:19 Order name: CBC with Automated Diff EDMS 11/10 22:19 Order name: Comprehensive Metabolic Panel EDMS 11/10 22:19 Order name: Comprehensive Metabolic Panel EDMS 11/10 22:19 Order name: Troponin High Sensitivity EDMS 11/10 22:19 Order name: Troponin High Sensitivity EDMS 11/10 22:19 Order name: Troponin High Sensitivity EDMS 11/10 22:19 Order name: Troponin High Sensitivity EDMS 11/10 22:23 Order name: C-Reactive Protein EDMS 11/10 22:23 Order name: Ferritin EDMS 11/10 22:23 Order name: Iron EDMS 11/10 22:23 Order name: Lipid Profile EDMS 11/10 22:23 Order name: Magnesium EDMS 11/10 22:23 Order name: NT PRO-BNP EDMS 11/10 22:23 Order name: Phosphorus EDMS 11/10 22:23 Order name: Retic Count EDMS 11/10 22:23 Order name: Vitamin B12 Level EDMS 11/10 22:24 Order name: Uric Acid EDMS 11/10 22:24 Order name: Uric Acid EDIA 11/11 04:32 Order name: Retic Count EDMS 11/10 17:22 Order name: CT Chest Abdomen Pelvis W/O Contrast; Complete Time: 19:10 kb 11/10 22:19 Order name: Chest Single View EDMS 11/10 22:19 Order name: Chest Single View EDMS 11/10 17:22 Order name: EKG; Complete Time: 17:22 kb 11/10 22:19 Order name: CONS Physician Consult EDMS 11/10 22:19 Order name: CONS Physician Consult EDIA 11/10 17:22 Order name: Accucheck; Complete Time: 18:05 kb 11/10 17:22 Order name: Cardiac monitoring; Complete Time: 18:05 kb 11/10 17:22 Order name: EKG - Nurse/Tech; Complete Time: 18:05 kb 11/10 17:22 Order name: IV Saline Lock - Large Bore; Complete Time: 18:05 kb 11/10 17:22 Order name: Labs collected and sent; Complete Time: 18:05 kb 11/10 17:22 Order name: O2 Per Protocol; Complete Time: 17:41 kb 11/10 17:22 Order name: O2 Sat Monitoring; Complete Time: 17:41 kb 11/10 17:22 Order name: Vital Signs; Complete Time: 17:41 kb 11/10 17:27 Order name: IV Saline Lock; Complete Time: 18:05 kb Administered Medications: 18:21 Drug: Ondansetron IVP 4 mg IVP once; over 2 minutes Route: IVP; Site: right wrist; kc6 11/11 01:09 Follow up: Response: No adverse reaction; Marked relief of symptoms; Nausea is decreasedjw7 11/10 18:21 Drug: hydrOXYzine PO 25 mg PO once Route: PO; kc6 11/11 01:09 Follow up: Response: No adverse reaction; Marked relief of symptoms jw7 11/10 20:31 Drug: Furosemide IVP 20 mg IVP once; give over 2 minutes Route: IVP; Site: right wrist; jw7 11/11 01:08 Follow up: Response: No adverse reaction jw7 Disposition Summary: 11/11/23 20:13 Hospitalization Ordered Notes: Hospitalization Status: Inpatient Admission kb Provider: Karina Kemp Condition: Stable kb Problem: new kb Symptoms: are unchanged kb Bed/Room Type: Standard kb Location: Telemetry/MedSurg (Inpatient)(11/12/23 03:38) Room Assignment: [facility](11/12/23 03:38) Diagnosis - Ileus, unspecified kb - Unspecified combined systolic (congestive) and diastolic (congestive) heart failure kb Forms: - Medication Reconciliation Form kb - SBAR form kb - Leadership Thank You Letter kb Signatures: Dispatcher [employer] Yoana Singh FNP-C FNP-Ameena Cho RN RN Le Mcdowell RN RN hb Waits, Jodi, RN RN jw7 Xuan Calhoun RN RN kc6 Corrections: (The following items were deleted from the chart) 11/10 22:19 22:19 Acute Hepatitis Panel ordered. EDIA EDMS 22:19 22:19 Acute Hepatitis Panel ordered. EDIA EDMS 22:20 20:13 Telemetry/MedSurg (Inpatient) kb cg : 20:13 kb cg 11/11 03:38 11/10 22:20 [facility] ER HOLD cg cg 11/11 03:38 11/10 22:20 ERHOLD- cg cg
[2023-11-11] MEDS ORDERED: FUROSEMIDE 20 MG/ 2ML VIAL ONE (20:26)
[2023-11-11 20:28] LABS: Blood Morphology Comment NOT SEEN (NOT SEEN); Platelet Estimate ADEQ; White Blood Cell Scan OK (OK)
--- NOTE | 2023-11-11 21:31 | P.HP ---
Certification for Inpatient Patient admitted to: Observation With expected LOS: <2 Midnights Patient will require the following post-hospital care: None Practitioner: I am a practitioner with admitting privileges, knowledge of patient current condition, hospital course, and medical plan of care. Services: Services provided to patient in accordance with Admission requirements found in Title 42 Section 412.3 of the Code of Federal Regulations Patient History Date of Service: 11/11/23 Reason for admission: Shortness of breath; nausea along with persistent cough History of Present Illness: Patient is a very pleasant 73-year-old gentleman who has a history of chronic kidney disease secondary to hypertension and diabetes who presents to the emergency room with complaints of shortness of breath. Patient states has been having a hard time laying down flat and has been getting really short of breath. He came into the emergency room a few days ago and he was evaluated for the shortness of breath. Patient's workup was unremarkable and he was discharged home. He states that when he got home he was still very short of breath. He was not really feeling better over the last couple of days and he started feeling nauseated and getting shakes and chills. He had a cough and he was little congested so he got concerned about his clinical condition, so he decided to come into the emergency room once again. In the ER, patient had CT of the chest, abdomen, and pelvis. Patient was found to have a questionable ileus along with some central prominence suggestive of mild pulmonary edema. Patient also with small bilateral effusions. At this time, patient will be admitted for observation for his acute CHF exacerbation. Patient's BNP is about similar to his last BMP a few days ago. His troponins are about the same as they were a few days ago. Patient's creatinine is actually improved from a few days prior. Will go ahead and admit the patient for observation, and will consult cardiology and nephrology for their assistance in patient's management. Patient has extensive history of medical problems. He developed hypertension and diabetes many years ago. 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 Around that time he noticed that he was becoming more short of breath. He ended up needing to go to the emergency room about every 3 to 4 months. He would be found to have fluid overload and they would give him diuretics. He would feel better, but his respiratory status would eventually worsen. Prior to 2018, patient's GFR was greater than 90. Around 2018 his GFR has come down into the 70s. In July 2020 patient had coronary angiogram performed with 2 stents in his LAD and a stent in his right circumflex. The following year his GFR had come down into the 40s. Over the last couple years his GFR has come down by about 10-15 points. His current GFR is approximately in the low 20s. Patient's BNP is also substantially increased. In 2021 he was in the thousands. By 2022 he had a BNP around 10,000. Currently his BNP is in the 20,000 range. Patient's cardiac status and renal status have progressively worsened over the last couple years. Patient most likely has cardiorenal syndrome and will have her specialist consulted to further evaluate. Allergies No Known Allergies Allergy (Verified 08/23/20 20:31) Home Medications: Metoprolol Succinate 1 tab PO DAILY 08/29/23 Furosemide 40 mg PO BID 30 Days #60 tab 08/31/23 - Past Medical/Surgical History Diabetic: Yes -: Diabetes mellitus type 2insulin-dependent -: Hypertension -: Chronic systolic CHF with EF=40% -: CAD -: CKD III -: Cholecystectomy -: Cardiac catheterization: 2 stents Psychosocial/ Personal History: Patient is . Lives at home. - Family History Father Medical History: Diabetes Mother Medical History: Diabetes - Social History Alcohol use: Yes CD- Drugs: No Caffeine use: Yes Review of Systems 10-point ROS is otherwise unremarkable Physical Examination - Vital Signs Temperature: 98 F Blood Pressure: 150/90 Pulse: 100 Respirations: 22 Pulse Ox (%): 95 - Physical Exam General: Alert, In no apparent distress, Oriented x3 HEENT: Atraumatic, PERRLA, Mucous membr. moist/pink, EOMI, Sclerae nonicteric Neck: Supple, 2+ carotid pulse no bruit, No LAD, JVD distended Respiratory: Diminished, Crackles/rales Cardiovascular: Regular rate/rhythm, Normal S1 S2, Systolic murmur Gastrointestinal: Normal bowel sounds, Soft and benign, Non-distended, No tenderness Musculoskeletal: No clubbing, No tenderness, Swelling Integumentary: No rashes Neurological: Normal gait, Normal speech, Normal strength at 5/5 x4 extr, Normal tone, Sensation intact, Cranial nerves 3-12 intact, Normal affect Lymphatics: No axilla or inguinal lymphadenopathy - Studies Laboratory Data (last 24 hrs) 11/11/23 11/11/23 11/11/23 18:00 18:00 18:00 WBC 8.50 Hgb 8.4 L Hct 25.0 L Plt Count 260 PT 13.6 H INR 1.24 APTT 33.6 Sodium 137 Potassium 4.6 BUN 46 H Creatinine 3.11 H Glucose 139 H Total Bilirubin 0.6 AST 12 L ALT 17 Alkaline Phosphatase 109 Assessment & Plan - Problems (Diagnosis) (1) Cardiorenal syndrome with renal failure Current Visit: Yes Status: Acute (2) Elevated troponin Current Visit: No Status: Acute (3) Essential hypertension Current Visit: No Status: Acute (4) Morbid obesity Current Visit: No Status: Acute (5) CAD (coronary artery disease) Current Visit: No Status: Chronic Qualifiers: Coronary Disease-Associated Artery/Lesion type: [place] artery [place] vs. transplanted heart: [place] heart Associated angina: without angina Qualified Code(s): I25.10 - Atherosclerotic heart disease of [place] coronary artery without angina pectoris (6) HTN (hypertension) Current Visit: No Status: Chronic Qualifiers: Hypertension type: primary hypertension Qualified Code(s): I10 - Essential (primary) hypertension (7) Type 2 diabetes mellitus Current Visit: No Status: Chronic Qualifiers: Diabetes mellitus intermediate accountant insulin use: without nursing home use Diabetes mellitus complication status: with kidney complications Diabetes mellitus complication detail: with chronic kidney disease Chronic kidney disease stage: stage 4 (severe) Qualified Code(s): E11.22 - Type 2 diabetes mellitus with diabetic chronic kidney disease; N18.4 - Chronic kidney disease, stage 4 (severe) (8) B12 deficiency Current Visit: Yes Status: Acute (9) Anemia of chronic kidney failure Current Visit: Yes Status: Acute (10) Type 2 myocardial infarction due to heart failure Current Visit: Yes Status: Acute - Plan Plan: 1. Continue monitoring renal function; continue monitoring GI symptoms 2. Cardiology and nephrology consultation 3. Antiemetics for nausea 4. Gentle diuresing while monitoring renal function 5. Supplement B12 and check B12 levels; check iron studies 6. Resume cardiac medications; continue antiplatelet therapy and statin therapy along with beta-dannielle 7. Strict blood pressure and blood sugar control 8. GI DVT prophylaxis Discharge Plan: Home Plan to discharge in: Greater than 2 days - Advance Directives Does patient have a Living Will: No Does patient have a Durable POA for Healthcare: No - Code Status/Comfort Care Code Status Assessed: Yes Code Status: Full Code Critical Care: No Time Spent Managing PTS Care (In Minutes): 45 Date of Service: 11/11/2307/2020 Cardiac catheterization ([facility]) Procedure Performed: 1. Selective coronary angiogram. 2. Percutaneous coronary intervention of severe heavily calcified mid left anterior descending artery disease using a 3.0 x 28 mm Synergy drug-eluting stent, overlapped proximally using 3.5 x 16 mm Synergy drug-eluting stent. 3. Percutaneous coronary intervention of severe mid RCA stenosis using 3.0 x 16 mm Synergy drug-eluting stent. 08/2023 ECHO ([facility]) 1. MILDLY DEPRESSED LEFT VENTRICULAR EJECTION FRACTION 40-45%. 2. MILD ANTEROSEPTAL AND APICAL HYPOKINESIS. 3. MILD MITRAL REGURGITATION. 4. MILD AORTIC INSUFFICIENCY 5. MILD TRICUSPID REGURGITATION 6. RIGHT VENTRICULAR SYSOTLIC PRESSURE IS 40-45mmHg (MILDLY ELEVATED 08/2023 Renal US FINDINGS: Both kidneys are normal in size, shape, and echotexture. The right kidney measures 10.6 cm in length. No hydronephrosis, focal mass, or echogenic calculi. The left kidney measures 10 cm in length. No hydronephrosis, focal mass, or echogenic calculi. The urinary bladder is suboptimally distended contributing to some apparent wall thickening, without other suspicious abnormality. IMPRESSION: Unremarkable renal sonogram. 11/11/23 CT Chest/Abd/Pelvis IMPRESSION: Nonspecific mild tension although proximal jejunum may suggest mild ileus. No evidence of obstruction. Bilateral layering pleural effusions and mild patchy ground-glass opacification with central interstitial prominence, findings which suggest central congestion or pulmonary edema.
[2023-11-11] MEDS ORDERED: MORPHINE 2 MG/ML SYR IV PRN (22:12)
[2023-11-11] MEDS ORDERED: ACETAMINOPHEN 500 MG TAB PO PRN (22:12)
[2023-11-11] MEDS ORDERED: ONDANSETRON 4 MG/2 ML VIAL IV PRN (22:12)
[2023-11-11 23:39] VITALS: BMI 26.4
[2023-11-12] MEDS: ALBUMIN HUMAN 25% 50 ML IV ONE
[2023-11-12] MEDS: METOPROLOL TAR 25 MG TAB PO ONE
[2023-11-12] MEDS ORDERED: ALBUMIN HUMAN 25% 50 ML IV ONE (00:53)
[2023-11-12] MEDS ORDERED: METOPROLOL TAR 25 MG TAB ONE (00:53)
[2023-11-12] MEDS ORDERED: FUROSEMIDE 40 MG/4 ML VIAL ONE (01:23)
[2023-11-12] MEDS: FUROSEMIDE 40 MG/4 ML VIAL IV SCH (01:31)
[2023-11-12 04:31] LABS: Absolute Eosinophils 0.1 K/uL (0-0.5); Absolute Lymphocytes (CBC) 0.7 K/uL (0.7-4.9); Absolute Monocytes 0.4 K/uL (0.1-1.3); Basophils % 0.6 % (0-1.3); Eosinophils % 1.1 % (0-4.4); Hematocrit 23.9 % (39.6-49.0); Hemoglobin 8.1 g/dL (13.6-17.9); Lymphocytes % 8.1 % (15.3-44.8); MCH 27.5 pg (27.0-35.0); MCHC 33.8 g/dL (32.0-36.0); MCV 81.4 fL (80-100); MPV 7.9 fL (7.6-11.3); Monocytes % 5.5 % (3.3-12.3); Neutrophils % 84.7 % (41.7-73.7); Percent Reticulocyte Count 0.91 % (0.4-2.05); Platelets 240 thou/uL (152-406); RBC Red Blood Cell Count 2.93 M/uL (4.33-5.43); Red Cell Distribution Width 14.6 % (12.1-15.2)
[2023-11-12 04:49] LABS: Albumin 3.3 g/dL (3.4-5.0); Albumin/Globulin Ratio 0.8 (1.1-1.8); Anion Gap 12.4 mEq/L (5.0-15.0); Bilirubin Total 0.8 mg/dL (0.2-1.0); Potassium 4.4 mEq/L (3.5-5.1); Protein, Total 7.3 g/dL (6.4-8.2); Uric Acid 5.9 mg/dL (3.5-7.2)
[2023-11-12 05:00] LABS: Troponin High Sensitivity 78.1 pg/mL (<58.9)
[2023-11-12 05:08] LABS: C-Reactive Protein 62.1 mg/L (<3.00); Ferritin 205.7 ng/mL (26-388); Phosphorus 3.9 mg/dL (2.5-4.9)
--- NOTE | 2023-11-12 06:59 | P.PN ---
Date of Service: 11/12/23 Subjective: Feeling better today. Breathing feels easier today, +increased urination minimal / no PO intake yesterday reports compliance with home meds had some kind of outside cardiac testing at [facility] and was told he had some "blockage" but not enough to warrant procedure. unable to elaborate further ROS: 10 point ROS as noted above, otherwise negative Physical Exam: GEN: Alert, oriented, NAD HEENT: Normal conjunctiva, sclera anicteric CV: Regular rate and rhythm, Systolic murmur, trace b/l pedal edema Pulm: Nonlabored respirations on room air, Diminished at bases b/l, +Crackles/rales ABD: Soft, nontender, nondistended Neuro: Normal speech, normal affect vitals reviewed Problem List: Acute on chronic systolic CHF exacerbation (HFrEF) NSTEMI Bilateral pleural effusions hx CAD s/p PCI x2 (LAD and right circumflex in 2019) CKD4 Questionable Ileus Anemia of chronic kidney failure / iron deficiency anemia IDDM2 Hypertension B12 deficiency Morbid Obesity Acute on chronic systolic CHF exacerbation NSTEMI Bilateral pleural effusions hx CAD s/p PCI x2 (LAD and right circumflex in 2019) Patient reports worsening dyspnea, worsened with activity. Also reports dyspnea worsened when laying flat. +cough Discharged with new lasix prescription (40mg BID) last hospitalization in August 2023. 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 unable to elaborate further CT abdomen (11/10): B/l pleural effusions and mild patchy ground-glass opacification. congestion vs pulmonary edema most recent Echo (08/29/23): 40-45% EF, mild anteroseptal and apical hypokinesis, mild MR / TR / AI, mildly elevated right ventricular systolic pressure (40- 45mmHG). troponins elevated x2. monitor on tele; likely type 2 MD BNP > 25k Cardiology consulted continue IV lasix 40 mg q8h CRP elevated, nonspecific continue home metoprolol, statin, aspirin CKD4 Nephrology consulted deemed secondary to cardiorenal syndrome / diabetes nephropathy / proteinuric per last hospitalization Creatinine 3.11 -> 3.28 (11/11) Continue to monitor renal function continue IV lasix 40 mg q8h continue sodium bicarb Questionable Ileus CT abdomen (11/10): nonspecific mild tension although proximal jejunum may suggest mild ileus. No obstruction. bilateral pleural effusions as noted above PPI Anemia of chronic kidney failure / iron deficiency anemia Monitor H&H. Iron levels low this hospitalization. Tsat%: 12.4% in August 2023. s/p IV iron x1 bag IDDM2 Insulin sliding scale Hypertension confirm home meds B12 deficiency continue B12 supplementation Code: Full Dispo: Home ~2 days Further diuresis / renal function improves
--- NOTE | 2023-11-12 07:15 | RAD REPORT ---
EXAM DESCRIPTION: RAD - Chest Single View - 11/12/2023 5:34 am CLINICAL HISTORY: Acute CHF COMPARISON: Chest Pa And Lat (2 Views) dated 11/05/2023; Chest Single View dated 08/30/2023; Chest Sing le View dated 08/28/2023; Chest Single View dated 08/09/2023; Chest Abd Pelvis Wo Con dated 11/11/2023 FINDINGS: Lines: None. Lungs: Pulmonary edema again identified and appears modestly worsened. Pleural: No significant pleural effusions or pneumothorax. Cardiac: Similar cardiomegaly. Mediastinum: Within normal limits. Bones: No acute fractures. Other: None IMPRESSION: Pulmonary edema which appears modestly worsened compared with 11/05/2023.
[2023-11-12] MEDS: SODIUM BICARB 325 MG TAB PO SCH (09:05)
[2023-11-12] MEDS: METOPROLOL TAR 25 MG TAB PO SCH (09:06)
[2023-11-12] MEDS: CALCIUM CARB 500MG/VIT D 200 IU TAB PO SCH (09:06)
[2023-11-12] MEDS: CYANOCOBALAMIN 1000MCG/ML INJ IM SCH (09:06)
[2023-11-12] MEDS: ASPIRIN EC 81 MG TAB PO SCH (09:06)
[2023-11-12] MEDS: SOD FERRIC GLUC COMPLX/SUCROSE 125 MG in NA CHLORIDE 0.9% 100 ML IV SCH (09:50)
--- NOTE | 2023-11-12 11:55 | P.CNS ---
Date of Consult: 11/12/23 Chief Complaint: Shortness of breath; nausea along with persistent cough History of Present Illness: Patient with PMH of systolic heart failure, CAD s/p PCI LAD and LCX 2020, HTN, HLD presented with worsening SOB over the last few days, associated with orthopnea, denies any chest pain, no palpitations, no syncope. Allergies No Known Allergies Allergy (Verified 08/23/20 20:31) Home Medications: Metoprolol Succinate 1 tab PO DAILY 08/29/23 Furosemide 40 mg PO BID 30 Days #60 tab 08/31/23 - Past Medical/Surgical History Diabetic: Yes -: Diabetes mellitus type 2insulin-dependent -: Hypertension -: Chronic systolic CHF with EF=40% -: CAD -: CKD III -: Cholecystectomy -: Cardiac catheterization: 2 stents Psychosocial/ Personal History: Patient is . Lives at home. - Family History Father Medical History: Diabetes Mother Medical History: Diabetes - Social History Smoking Status: Former smoker Alcohol use: Yes CD- Drugs: No Caffeine use: Yes Place of Residence: Home Review of Systems 10-point ROS is otherwise unremarkable Physical Examination Temp Pulse Resp BP Pulse Ox 98 F 100 H 22 H 150/90 H 95 11/12/23 09:31 11/12/23 09:31 11/12/23 09:31 11/12/23 09:31 11/12/23 09:31 General: Alert, Oriented x3 HEENT: Atraumatic Neck: Supple, JVD not distended Respiratory: Clear to auscultation bilaterally Cardiovascular: No edema, Normal S1 S2 Gastrointestinal: Normal bowel sounds Laboratory Data (last 24 hrs) 11/11/23 11/11/23 11/11/23 18:00 18:00 18:00 WBC 8.50 Hgb 8.4 L Hct 25.0 L Plt Count 260 PT 13.6 H INR 1.24 APTT 33.6 Sodium 137 Potassium 4.6 BUN 46 H Creatinine 3.11 H Glucose 139 H Total Bilirubin 0.6 AST 12 L ALT 17 Alkaline Phosphatase 109 - Problems (1) Type 2 myocardial infarction due to heart failure Current Visit: Yes Status: Acute Plan: troponin mildly elevated and no delta, most likely type 2 CA from heart failure continue ASA 81 mg daily patient might benefit from outpatient stress test (2) Acute on chronic systolic heart failure Current Visit: No Status: Acute Plan: Agree with Lasix 40 mg IV TID with close monitoring of input and output and kidney function. if patient creatinine worsen then will consider right heart catheterization for volume assessment. (3) Essential hypertension Current Visit: No Status: Acute Plan: continue Lopressor 25 mg po BID.
[2023-11-12] MEDS: ATORVASTATIN 40 MG TAB PO SCH (20:28)
[2023-11-13 02:48] VITALS: O2SAT 98
[2023-11-13 04:20] LABS: Absolute Eosinophils 0.3 K/uL (0-0.5); Absolute Lymphocytes (CBC) 0.9 K/uL (0.7-4.9); Absolute Monocytes 0.4 K/uL (0.1-1.3); Absolute Neutrophil 3.3 K/uL (1.8-8.0); Basophils % 0.8 % (0-1.3); Eosinophils % 6.6 % (0-4.4); Hematocrit 23.4 % (39.6-49.0); Hemoglobin 7.9 g/dL (13.6-17.9); Lymphocytes % 18.7 % (15.3-44.8); MCH 27.3 pg (27.0-35.0); MCHC 33.8 g/dL (32.0-36.0); MCV 80.7 fL (80-100); Monocytes % 8.2 % (3.3-12.3); Neutrophils % 65.7 % (41.7-73.7); Nucleated Red Blood Cells % 0.1 % (0-0); Platelets 254 thou/uL (152-406); RBC Red Blood Cell Count 2.89 M/uL (4.33-5.43); Red Cell Distribution Width 14.2 % (12.1-15.2)
[2023-11-13 04:36] LABS: Albumin 3.1 g/dL (3.4-5.0); Albumin/Globulin Ratio 0.8 (1.1-1.8); Bilirubin Total 0.5 mg/dL (0.2-1.0); Globulin 4.1 g/dL (2.3-3.5); Protein, Total 7.2 g/dL (6.4-8.2)
[2023-11-13 04:39] LABS: Troponin High Sensitivity 65.8 pg/mL (<58.9)
--- NOTE | 2023-11-13 08:28 | CON ---
Date of Consultation: 11/12/2023 Chief Complaint: Shortness of breath. History Of Present Illness: The patient presented to the hospital because of generalized weakness, d yspnea at rest and on exertion, nausea with persistent cough. The patient is very pleasant 73-year-o ld man who has history of chronic kidney disease secondary to hypertension and diabetes. He came to emergency room with complaints of shortness of breath. The patient states he was not feeling well ov er at least 1 to 2 weeks, had shortness of breath and had some orthopnea. The patient had workup don e in the emergency room. Nephrology consultation is requested for abnormal renal function test. He has chronic kidney disease stage 3. In the emergency room, the patient had a CT scan of the chest, a bdomen, and pelvis. The patient was found to have questionable ileus along with some central promine nce suggestive of mild pulmonary edema. The patient also had a small bilateral pleural effusion and was admitted for congestive heart failure and possible pneumonia. BNP is elevated corresponding with congestive heart failure. Troponin level was also checked to rule out acute coronary syndrome. Ser um creatinine level has not improved significantly. Patient is nonoliguric. The patient has multipl e medical problems. He has history of hypertension and diabetes. He was found to have fluid overloa d in the recent past and was started on diuretic. Prior to 2018, the GFR was greater than 90. Aroun d 2018, GFR declined to 70, and in July 2020, with 2 stents in his LAD and stent at hi s right circumflex. Subsequently GFR declined to 40. Over last 2 years, there was accelerated chron ic kidney disease and currently GFR is approximately in 20s. BNP substantially increased. The patie nt has clinical symptoms of congestive heart failure. BNP is up to 10,000. During this admission, a lthough is up to 20,000 range. The patient has cardiorenal syndrome. Nephrology consultation is req uested for cardiorenal syndrome and abnormal renal function test with history of chronic kidney disea se stage 3. The patient has chronic systolic congestive heart failure with ejection fraction of 40%. Review of Systems: Constitutional: The patient complains of generalized weakness. Denies syncope. Eyes: Denies new vision changes. Ears, Nose, mouth, and Throat: Denies sore throat. Respiratory: Has shortness of breath. Had episodes of orthopnea. Denies wheezing. Has progressive ly worse cough. Denies hemoptysis. GI: Denies melena, hematemesis. Was complaining of some abdominal discomfort, nausea. Denies melen a. : Denies dysuria, hematuria, incomplete voiding. All other systems reviewed and all are negative. Past Medical History: Diabetes mellitus, on insulin; hypertension; chronic systolic congestive heart failure, ejection fraction 40%; coronary artery disease; chronic kidney disease stage 3; cholecystec esperanza; with 2 stents. Family History: Father had diabetes. Mother diabetes. Social History: Denies tobacco, alcohol, illicit drugs. Physical Examination: General: Awake, alert, follows commands. Eyes: Anicteric sclerae. EOMI. Ears, Nose, Mouth, and Throat: Oral mucosa moist. Neck: Supple. No bruits. Lungs: Rhonchi and crackles bilaterally present. Heart: S1, S2. No pericardial friction rub. Abdomen: Soft, benign, nontender. No rebound, no guarding. Extremities: Slight edema in both legs. Neurologic: Moving extremities. Cranial nerves intact. Laboratory Data: Hemoglobin 8.4, WBC 8.5, platelet count 260,000. INR 1.24, PT 13.6, PTT 33.6. Sod ium 137, potassium 4.6, BUN 46, creatinine 3.11, glucose 139, total bilirubin 0.6. Impression And Plan: 1.Cardiorenal syndrome, acute on chronic kidney injury. The patient will continue diuretics, volume control, and congestive heart failure treatment. Elevated troponin. The patient will have workup f or acute coronary syndrome, acute myocardial Cardiology consultation. 2.Hypertension, hypertensive heart and kidney disease. Continue blood pressure medication. 3.Morbid obesity, per primary team. 4.Coronary artery disease and history of PTCA and stent. The patient presented with angina and acut e coronary syndrome. Patient has atherosclerotic heart disease . Recommend Cardiology con sultation. 5.Hypertension. Continue blood pressure medication. 6.Diabetes mellitus. Continue insulin. 7.Acute kidney injury. Plan is to check renal ultrasound, urinalysis and screen for proteinuria and evaluate for possible nephritis. The patient may need renal biopsy if there is high proteinuria or abnormal urinary sediment. 8.Anemia of chronic disease. Monitor hemoglobin level. Consider DYLAN. 9.Nausea, vomiting. Continue antiemetics. EB/MODL Voice ID: [id number] Report ID: [id number]
[2023-11-13 10:28] VITALS: BP 121/69
--- NOTE | 2023-11-13 10:57 | P.DS ---
Admission Date: 11/11/23 Discharge Date: 11/13/23 Disposition: ROUTINE DISCHARGE Discharge Condition: FAIR Reason for Admission: Shortness of breath; nausea along with persistent cough Brief History of Present Illness: Patient is a very pleasant 73-year-old gentleman who has a history of chronic kidney disease secondary to hypertension and diabetes who presented to the emergency room with complaints of shortness of breath. Patient states has been having a hard time laying down flat and has been getting really short of breath. He came into the emergency room a few days prior and he was evaluated for the shortness of breath. Patient's workup was unremarkable and he was discharged home. He states that when he got home he was still very short of breath. He was not really feeling better over the last couple of days and he started feeling nauseated and getting shakes and chills. He had a cough and he was little congested so he got concerned about his clinical condition, so he decided to come into the emergency room once again. In the ER, patient had CT of the chest, abdomen, and pelvis. Patient was found to have a questionable ileus along with pulmonary central prominence suggestive of mild pulmonary edema. Patient also with small bilateral effusions. Patient was admitted for observation for his acute CHF exacerbation. Hospital Course: Diagnosis Acute on chronic systolic CHF exacerbation (HFrEF) NSTEMI Bilateral pleural effusions hx CAD s/p PCI x2 (LAD and right circumflex in 2019) CKD4 Questionable Ileus Anemia of chronic kidney failure / iron deficiency anemia IDDM2 Hypertension B12 deficiency Morbid Obesity Patient admitted to the medical floor and the following medical problems addressed: Acute on chronic systolic CHF exacerbation NSTEMI Bilateral pleural effusions hx CAD s/p PCI x2 (LAD and right circumflex in 2019) Patient was discharged with new lasix prescription (40mg BID) last hospitalization in August 2023. 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 congestion vs pulmonary edema most recent Echo (08/29/23): 40-45% EF, mild anteroseptal and apical hypokinesis, mild MR / TR / AI, mildly elevated right ventricular systolic pressure (40-45 mmHG). troponins elevated x2. Likely type 2 OK BNP > 25k Seen by cardiology, elevated troponin deemed secondary to demand ischemia-type II OK Patient treated with IV lasix 40 mg q8h. respiratory condition improved, shortness of breath resolved, patient transition to p.o. Lasix. continued home metoprolol, statin, aspirin. Patient deemed stable for discharge per cardiology. CKD4 Nephrology evaluated patient and assisted with management Elevated creatinine deemed secondary to cardiorenal syndrome / diabetes nephropathy / proteinuric per last hospitalization Creatinine 3.11 -> 3.28 (11/11) Patient started on sodium bicarb. Follow-up with nephrology as outpatient. Questionable Ileus CT abdomen (11/10): nonspecific mild tension although proximal jejunum may suggest mild ileus. No obstruction. bilateral pleural effusions as noted above PPI. Patient has been asymptomatic. Anemia of chronic kidney failure / iron deficiency anemia Monitor H&H. Iron levels low this hospitalization. Tsat%: 12.4% in August 2023. s/p IV iron x1 bag Patient discharged with oral iron supplementation. Follow-up with nephrology as outpatient. IDDM2 Managed with insulin sliding scale Hypertension Was on metoprolol during the hospital stay. B12 deficiency continued B12 supplementation Vital Signs/Physical Exam: Temp Pulse Resp BP Pulse Ox 97.9 F 69 18 121/69 99 11/13/23 08:00 11/13/23 10:00 11/13/23 08:00 11/13/23 10:00 11/13/23 08:00 General: Alert, In no apparent distress, Oriented x3 HEENT: Mucous membr. moist/pink Neck: Supple, JVD not distended Respiratory: Clear to auscultation bilaterally, Normal air movement Cardiovascular: Regular rate/rhythm, Normal S1 S2 Gastrointestinal: Normal bowel sounds, Soft and benign, Non-distended, No tenderness Musculoskeletal: No swelling Integumentary: No rashes, No cyanosis Neurological: Normal strength at 5/5 x4 extr Laboratory Data at Discharge: WBC 5.00 thou/uL (4.3-10.9) 11/13/23 03:49 Hgb 7.9 g/dL (13.6-17.9) L 11/13/23 03:49 Hct 23.4 % (39.6-49.0) L 11/13/23 03:49 Plt Count 254 thou/uL (152-406) 11/13/23 03:49 PT 13.6 SECONDS (9.5-12.5) H 11/11/23 18:00 INR 1.24 11/11/23 18:00 APTT 33.6 SECONDS (24.3-36.9) 11/11/23 18:00 Sodium 136 mEq/L (136-145) 11/13/23 03:49 Potassium 4.0 mEq/L (3.5-5.1) 11/13/23 03:49 BUN 60 mg/dL (7-18) H 11/13/23 03:49 Creatinine 3.86 mg/dL (0.70-1.30) H 11/13/23 03:49 Glucose 104 mg/dL (74-106) 11/13/23 03:49 Uric Acid 5.9 mg/dL (3.5-7.2) 11/12/23 04:05 Phosphorus 3.9 mg/dL (2.5-4.9) 11/12/23 04:05 Magnesium 2.0 mg/dL (1.6-2.4) 11/13/23 03:49 Total Bilirubin 0.5 mg/dL (0.2-1.0) 11/13/23 03:49 AST 7 U/L (15-37) L 11/13/23 03:49 ALT 16 U/L (16-61) 11/13/23 03:49 Alkaline Phosphatase 96 U/L (45-117) 11/13/23 03:49 Triglycerides 79 mg/dL (<150) 11/12/23 04:05 Cholesterol 131 mg/dL (<200) 11/12/23 04:05 HDL Cholesterol 56 mg/dL (40-60) 11/12/23 04:05 Cholesterol/HDL Ratio 2.34 11/12/23 04:05 Home Medications: Aspirin [Aspirin EC] 81 mg PO DAILY #30 tab 11/13/23 Atorvastatin Calcium [Lipitor] 40 mg PO BEDTIME #30 tab 11/13/23 Calcium Carbonate/Vitamin D3 [Oscal 500 + Vit D 200 Iu Tab*] 1 tab PO BID #60 tab 11/13/23 Furosemide 40 mg PO BID 30 Days #60 tab 11/13/23 Iron Polysaccharide Complex [Polysaccharide Iron] 150 mg PO DAILY #30 tab 11/13/23 Metoprolol Tartrate [Lopressor*] 25 mg PO BID 6AM 6PM #60 tab 11/13/23 Sodium Bicarbonate 650 mg PO BID #60 tab 11/13/23 New Medications: Aspirin [Aspirin EC] 81 mg PO DAILY #30 tab Furosemide 40 mg PO BID 30 Days #60 tab Atorvastatin Calcium [Lipitor] 40 mg PO BEDTIME #30 tab Metoprolol Tartrate [Lopressor*] 25 mg PO BID 6AM 6PM #60 tab Calcium Carbonate/Vitamin D3 [Oscal 500 + Vit D 200 Iu Tab*] 1 tab PO BID #60 tab Iron Polysaccharide Complex [Polysaccharide Iron] 150 mg PO DAILY #30 tab Sodium Bicarbonate 650 mg PO BID #60 tab Diet: Renal Activity: Ad nikhil Followup: Nel Henley [Primary Care Provider] - 1-2 Weeks Rosario Wu MD [COURTESY - CAN ADMIT] - 1-2 Weeks Time spent managing pt's care (in minutes): 29
[2023-11-13 11:00] VITALS: TEMP 97.9
--- NOTE | 2023-11-13 11:50 | P.PN ---
Subjective Date of Service: 11/13/23 Chief Complaint: Shortness of breath; nausea along with persistent cough Subjective: No new changes (feels much better) Review of Systems 10-point ROS is otherwise unremarkable Physical Examination - Vital Signs Temperature: 97.9 F Blood Pressure: 121/69 Pulse: 69 Respirations: 18 Pulse Ox (%): 99 - Physical Exam General: Alert, Oriented x3 HEENT: Atraumatic Neck: Supple Respiratory: Clear to auscultation bilaterally Cardiovascular: No edema, Normal S1 S2 Gastrointestinal: Normal bowel sounds Assessment And Plan - Current Problems (Diagnosis) (1) Type 2 myocardial infarction due to heart failure Current Visit: Yes Status: Acute Plan: troponin mildly elevated and no delta, most likely type 2 DE from heart failure continue ASA 81 mg daily patient might benefit from outpatient stress test (2) Acute on chronic systolic heart failure Current Visit: No Status: Acute Plan: Patient feels much better switch lasix to 40 mg po BID and follow up with PCP and cardiology. (3) Essential hypertension Current Visit: No Status: Acute Plan: continue Lopressor 25 mg po BID.
--- NOTE | 2023-11-13 14:12 | EKG ---
Test Date: 2023-11-11 Test Time: 17:39:25 Sas Statistical Programmer: DAMIAN MEASUREMENT RESULTS: Intervals: Rate: 100 MI: 178 QRSD: 86 QT: 362 QTc: 466 [place]: P: 45 MI: 178 QRS: 59 T: -1 INTERPRETIVE STATEMENTS: Normal sinus rhythm Nonspecific ST and T wave abnormality Prolonged QT Abnormal ECG Compared to ECG 08/28/2023 21:57:26 No significant changes Electronically Signed On 11-13-23 14:06:52 CDT by Arie Bragg
--- NOTE | 2023-11-13 23:44 | P.CNS ---
Date of Consult: 11/13/23 Reason for Consult: CKD Chief Complaint: Shortness of breath; nausea along with persistent cough History of Present Illness: A 73-year-old gentleman who has a history of Diabetic chronic kidney disease secondary , HTN , CHF on diuretics Pt presented to emergency room with complaints of shortness of breath. Patient states has been having a hard time laying down flat and has been getting really short of breath. pt with progressively worsening reanl function, nephrology consulted for further eveluation Physical exam General: AAOx3, NAD CHEST; CTAB, no wheezes or rales HEART : RRR. Normal S1,2 no murmur or rub Abd: soft, Nt Ext: no edema, Skin : No rash #. Acute kidney injury on advanced chronic kidney disease secondary to cardiorenal with slow progression of the disease, nonoliguric. Cont lasix renal dose meds follow with nephrology clinic in 2wks . #. CHF exacerbation. Lasix & liberal po fluid intake as above. Cont cardioprudent meds. #. DM2. Mngt per primary team. #. Hypertension. BP meds adjusted. Allergies No Known Allergies Allergy (Verified 08/23/20 20:31) Home Medications: Aspirin [Aspirin EC] 81 mg PO DAILY #30 tab 11/13/23 Atorvastatin Calcium [Lipitor] 40 mg PO BEDTIME #30 tab 11/13/23 Calcium Carbonate/Vitamin D3 [Oscal 500 + Vit D 200 Iu Tab*] 1 tab PO BID #60 tab 11/13/23 Furosemide 40 mg PO BID 30 Days #60 tab 11/13/23 Iron Polysaccharide Complex [Polysaccharide Iron] 150 mg PO DAILY #30 tab 11/13/23 Metoprolol Tartrate [Lopressor*] 25 mg PO BID 6AM 6PM #60 tab 11/13/23 Sodium Bicarbonate 650 mg PO BID #60 tab 11/13/23 - Past Medical/Surgical History Diabetic: Yes -: Diabetes mellitus type 2insulin-dependent -: Hypertension -: Chronic systolic CHF with EF=40% -: CAD -: CKD III -: Cholecystectomy -: Cardiac catheterization: 2 stents Psychosocial/ Personal History: Patient is . Lives at home. - Family History Father Medical History: Diabetes Mother Medical History: Diabetes - Social History Smoking Status: Former smoker Alcohol use: Yes CD- Drugs: No Caffeine use: Yes Place of Residence: Home Physical Examination Temp Pulse Resp BP Pulse Ox 97.9 F 69 18 121/69 99 11/13/23 11:50 11/13/23 11:50 11/13/23 11:50 11/13/23 11:50 11/13/23 11:50
== END 2023-11-13 14:25 | disposition home or self-care (01) ==
LOC: ER 17:12 → ERHOLD 22:12 → 4TH 11-12 04:10
PROVIDERS: ADMIT Hospitalist; ATTEND Internal Medicine
DX: I21.A1 Myocardial infarction type 2 (principal); I50.23 Acute on chronic systolic (congestive) heart failure; I25.10 Atherosclerotic heart disease of native coronary artery without angina pectoris; N17.9 Acute kidney failure, unspecified; I13.10 Hypertensive heart and chronic kidney disease without heart failure, with stage 1 through stage 4 chronic kidney disease, or unspecified chronic kidney disease; I12.9 Hypertensive chronic kidney disease with stage 1 through stage 4 chronic kidney disease, or unspecified chronic kidney disease; N18.4 Chronic kidney disease, stage 4 (severe); R79.89 Other specified abnormal findings of blood chemistry; E11.22 Type 2 diabetes mellitus with diabetic chronic kidney disease; R05.9 Cough, unspecified; E66.9 Obesity, unspecified; R11.2 Nausea with vomiting, unspecified; D63.1 Anemia in chronic kidney disease; J90 Pleural effusion, not elsewhere classified; E53.8 Deficiency of other specified B group vitamins; Z95.5 Presence of coronary angioplasty implant and graft; Z68.26 Body mass index [BMI] 26.0-26.9, adult
CPT/HCPCS: 93005; 87040 ×2; 85025 ×3; 36415 ×2; 83735 ×2; 84100; 85610; 85044; 80061; 82947 ×6; 84550; 83605; 85730; 84484 ×3; 82728; 82607; 83540; 80053 ×3; 83880 ×2; 86140; 71250; 74176; 71045; J3420; J2916; J1940 ×6; J2405; P9047; 96374; 96375; 99285; G0378

== ENCOUNTER 2023-12-12 08:29 | Inpatient (IN) | payer OTHER ==
[2023-12-12] MEDS ORDERED: NA CHLORIDE 0.9% 1,000 ML ONE (09:22)
--- NOTE | 2023-12-12 09:43 | RAD REPORT ---
EXAM DESCRIPTION: RADChest Single View12/12/2023 9:36 am CLINICAL HISTORY: COUGH COMPARISON: Chest Single View dated 11/12/2023; Chest Pa And Lat (2 Views) dated 11/05/2023; Chest Sin gle View dated 08/30/2023; Chest Single View dated 08/28/2023; Chest Abd Pelvis Wo Con dated 11/11/2023 TECHNIQUE: Portable AP view of the chest. FINDINGS: Lungs show no focal consolidation. Fairly diffuse interstitial thickening, stable. No pne umothorax or effusion. The cardiomediastinal contours are unremarkable. IMPRESSION: Stable interstitial changes, which may relate to central congestion, probably with under lying chronic interstitial/fibrotic changes.
[2023-12-12 09:44] LABS: Absolute Eosinophils 0.1 K/uL (0-0.5); Absolute Lymphocytes (CBC) 0.6 K/uL (0.7-4.9); Absolute Monocytes 0.4 K/uL (0.1-1.3); Absolute Neutrophil 5.9 K/uL (1.8-8.0); Basophils % 0.6 % (0-1.3); Eosinophils % 1.1 % (0-4.4); Hematocrit 23.8 % (39.6-49.0); Lymphocytes % 8.3 % (15.3-44.8); MCH 26.9 pg (27.0-35.0); MCHC 33.5 g/dL (32.0-36.0); MCV 80.3 fL (80-100); MPV 7.4 fL (7.6-11.3); Monocytes % 5.9 % (3.3-12.3); Neutrophils % 84.1 % (41.7-73.7); Nucleated Red Blood Cells % 0.2 % (0-0); Platelets 262 thou/uL (152-406); RBC Red Blood Cell Count 2.96 M/uL (4.33-5.43); Red Cell Distribution Width 15.8 % (12.1-15.2)
[2023-12-12 09:46] LABS: PT Prothrombin Time 13.6 SECONDS (9.5-12.5); Protime INR 1.24
[2023-12-12 10:04] LABS: Albumin 3.2 g/dL (3.4-5.0); Albumin/Globulin Ratio 0.8 (1.1-1.8); Anion Gap 9.1 mEq/L (5.0-15.0); Bilirubin Direct 0.2 mg/dL (0-0.2); Bilirubin Indirect, Calculated 0.5 mg/dL (0.2-0.8); Bilirubin Total 0.7 mg/dL (0.2-1.0); Potassium 4.1 mEq/L (3.5-5.1); Protein, Total 7.2 g/dL (6.4-8.2)
--- NOTE | 2023-12-12 10:39 | RAD REPORT ---
EXAM DESCRIPTION: CT - Abdomen Pelvis W Contrast - 12/12/2023 9:45 am CLINICAL HISTORY: ABD PAIN COMPARISON: CT ABD PELVIS W CONTRAST dated 06/10/2012 TECHNIQUE: Thin cut axial CT imaging of the abdomen and pelvis was performed following intravenous a dministration of 75 mL Isovue 300. Multiplanar reformats were generated and reviewed. All CT scans are performed using dose optimization technique as appropriate and may include automated exposure control or mA/KV adjustment according to patient size. FINDINGS: Small right layering pleural effusion. No other suspicious findings in the lung bases. The liver, spleen, adrenal glands, and pancreas show no suspicious findings. Gallbladder was surgical ly removed. Symmetric renal function is seen with no hydronephrosis or suspicious renal mass. No dilated bowel loops or bowel wall thickening. Nonspecific fluid opacification of nondistended smal l bowel throughout the abdomen, as well as the cecal bulb. Small bilateral inguinal hernias containin g fat. No free air, free fluid or inflammatory stranding. No suspicious mass or bulky lymphadenopathy . The urinary bladder is without significant finding. Mild prostatomegaly. No suspicious bony findings. IMPRESSION: Small layering right pleural effusion. Nonspecific fluid opacification of nondistended small bowel loops throughout the abdomen as well as t he cecal bulb, findings may relate to mild enteritis or diarrheal state. No other acute intraabdominal process.
[2023-12-12] MEDS ORDERED: FUROSEMIDE 40 MG/4 ML VIAL ONE (10:55)
[2023-12-12] MEDS ORDERED: CIPROFLOXACIN 400mg IV 400 MG/200 ML BAG IV ONE (10:55)
[2023-12-12] MEDS ORDERED: METRONIDAZOLE 500mg IVPB 500 MG/100 ML BAG IV ONE (10:55)
--- NOTE | 2023-12-12 11:10 | EDPHYS ---
Physician Documentation [facility] Name: Sylvain Veronica Age: 73 yrs Sex: Male : 1950 Arrival Date: 12/12/2023 Time: 08:29 Bed 18 Private MD: ED Physician Rogelio Warren HPI: 12/11 09:17 This 73 yrs old Male presents to ER via Ambulatory with complaints of sp3 Congestion, Headache, Bump on head, Abdominal Pain. 09:17 73-year-old male with history of CHF, diabetes, hypertension, chronic kidney disease, sp3 with recent ileus last month now presents to the ED again for URI symptoms, cough, congestion, abdominal pain with mild diarrhea. Patient also states that he has a "bump" on the side of his face which has, for the last 2 days. His main reason for coming in is the shortness of breath when sleeping and he states he has had to sleep sitting up. He denies fever, headache, back pain, chest pain, rash, bleeding, or any other signs or symptoms on ROS at this time. Abdominal pain is diffuse and intermittent and diarrhea is several times a day without blood or mucus. He denies any potential bad food, sick contacts or travel history.. Historical: - Allergies: 08:58 No Known Allergies; kc6 - PMHx: 08:58 Congestive heart failure; Systolic; Diabetes - IDDM; Hypertensive disorder; kidney kc6 disease; CKD 3; - PSHx: 08:58 Appendectomy; cardiac stents; Cholecystectomy; kc6 - Immunization history:: Client reports receiving the 1st dose of the Covid vaccine, Flu vaccine is not up to date. - Infectious Disease History:: Denies. - Social history:: Smoking status: Patient denies any tobacco usage or history of. ROS: 09:19 Constitutional: Negative for fever, chills, and weight loss, Eyes: Negative for injury, sp3 pain, redness, and discharge, Neck: Negative for injury, pain, and swelling, Cardiovascular: Negative for chest pain, palpitations, and edema, Back: Negative for injury and pain, : Negative for injury, bleeding, discharge, and swelling, MS/Extremity: Negative for injury and deformity, Skin: Negative for injury, rash, and discoloration, Neuro: Negative for headache, weakness, numbness, tingling, and seizure, Psych: Negative for depression, anxiety, suicide ideation, homicidal ideation, and hallucinations, Allergy/Immunology: Negative for hives, rash, and allergies, Endocrine: Negative for neck swelling, polydipsia, polyuria, polyphagia, and marked weight changes, 09:19 All other systems are negative, Exam: 09:19 Constitutional: This is a well developed, well nourished patient who is awake, alert, sp3 and in no acute distress. Eyes: Pupils equal round and reactive to light, extra-ocular motions intact. Lids and lashes normal. Conjunctiva and sclera are non-icteric and not injected. Cornea within normal limits. Periorbital areas with no swelling, redness, or edema. ENT: Nares patent. No nasal discharge, no septal abnormalities noted. External auditory canals are clear. Oropharynx with no redness, swelling, or masses, exudates, or evidence of obstruction, uvula midline. Mucous membranes moist. Neck: Trachea midline, no thyromegaly or masses palpated, and no cervical lymphadenopathy. Supple, full range of motion without nuchal rigidity, or vertebral point tenderness. No Meningismus. Chest/axilla: Normal chest wall appearance and motion. Nontender with no deformity. No lesions are appreciated. Cardiovascular: Regular rate and rhythm with a normal S1 and S2. No gallops, murmurs, or rubs. Normal PMI, no JVD. No pulse deficits. Back: No spinal tenderness. No costovertebral tenderness. Full range of motion. Skin: Warm, dry with normal turgor. Normal color with no rashes, no lesions, and no evidence of cellulitis. MS/ Extremity: Pulses equal, no cyanosis. Neurovascular intact. Full, normal range of motion. Neuro: Awake and alert, GCS 15, oriented to person, place, time, and situation. Cranial nerves II-XII grossly intact. Motor strength 5/5 in all extremities. Sensory grossly intact. Cerebellar exam normal. Normal gait. Psych: Awake, alert, with orientation to person, place and time. Behavior, mood, and affect are within normal limits. 09:19 Head/face: 1 cm x 1 cm area of early fluctuance on the right side of the face consistent with early facial abscess.. 09:19 Respiratory: Mild cough with mild bibasilar Rales., 09:20 Abdomen/GI: Mild diffuse tenderness without peritoneal signs, rebound or guarding., sp3 09:33 ECG was reviewed by the Attending Physician. EKG demonstrates normal sinus rhythm at 98 sp3 bpm with normal intervals, normal axis, mild high voltage and diffuse ST's ST changes without evidence of acute ischemia with a QTc of 467 unchanged from prior EKG dated November 11, 2023. Vital Signs: 08:57 BP 154 / 85; Pulse 115; Resp 19 S; Temp 98(O); Pulse Ox 99% on R/A; Weight 81.65 kg kc6 (R); Height 5 ft. 10 in. (R); 10:01 BP 141 / 72; Pulse 97; Resp 18 S; Pulse Ox 100% on R/A; kc6 11:07 BP 164 / 97; Pulse 110; Resp 16 S; Pulse Ox 100% on R/A; kc6 12:15 BP 147 / 84; Pulse 100; Resp 18 S; Pulse Ox 98% on R/A; kc6 08:57 Body Mass Index 25.83 (81.65 kg, 177.8 cm) kc6 MDM: 09:04 Patient medically screened. sp3 09:20 Data reviewed: vital signs, nurses notes, old medical records, lab test result(s), EKG, sp3 radiologic studies. ED course: 73-year-old male with PMH above and recent ileus. Patient returns for URI symptoms, cough and abdominal pain with diarrhea. Workup will be broad and includes full cardiac workup including EKG, labs, chest x-ray and will also obtain abdominal CT with IV contrast to assess his abdomen relative to his last visit. Differential diagnosis includes URI, viral syndrome, pneumonia, CHF, recurrent ileus, GI viral syndrome/gastroenteritis, among others. Workup as above and disposition pending workup and patient course.. 10:53 ED course: Will administer Lasix for greater than baseline BNP of 27,000. Lactate is at sp3 2.0 but we will hold on any fluid resuscitation. Cipro and Flagyl given IV for enteritis and general supportive care. Patient will be admitted to hospitalist service.. 12/11 09:11 Order name: Basic Metabolic Panel; Complete Time: 10:06 sp3 12/11 09:11 Order name: CBC with Diff; Complete Time: 10:06 sp3 12/11 09:11 Order name: LFT's; Complete Time: 10:06 sp3 12/11 09:11 Order name: Magnesium; Complete Time: 10:06 sp3 12/11 09:11 Order name: NT PRO-BNP; Complete Time: 10:06 sp3 12/11 09:11 Order name: PT-INR; Complete Time: 10:06 sp3 12/11 09:11 Order name: Troponin HS; Complete Time: 10:06 sp3 12/11 09:11 Order name: Lactate w/ 2H reflex if indic.; Complete Time: 10:06 sp3 12/11 11:47 Order name: Basic Metabolic Panel EDMS 12/11 11:47 Order name: Basic Metabolic Panel EDMS 12/11 11:47 Order name: Basic Metabolic Panel EDMS 12/11 11:47 Order name: Basic Metabolic Panel EDMS 12/11 11:47 Order name: Basic Metabolic Panel EDMS 12/11 11:47 Order name: CBC with Automated Diff EDMS 12/11 11:47 Order name: CBC with Automated Diff EDMS 12/11 11:47 Order name: CBC with Automated Diff EDMS 12/11 11:47 Order name: CBC with Automated Diff EDMS 12/11 11:47 Order name: CBC with Automated Diff EDMS 12/11 11:47 Order name: Magnesium EDMS 12/11 11:47 Order name: Magnesium EDMS 12/11 11:47 Order name: Magnesium EDMS 12/11 11:47 Order name: Magnesium EDMS 12/11 11:47 Order name: Magnesium EDMS 12/11 11:48 Order name: Urinalysis w/ reflexes EDMS 12/11 11:50 Order name: Troponin High Sensitivity EDMS 12/11 11:50 Order name: Troponin High Sensitivity EDMS 12/11 11:50 Order name: Troponin High Sensitivity EDMS 12/11 11:50 Order name: Troponin High Sensitivity EDMS 12/11 11:52 Order name: Stool Culture EDMS 12/11 09:11 Order name: XRAY Chest (1 view); Complete Time: 10:06 sp3 12/11 09:11 Order name: CT Abd/Pelvis - IV Contrast Only; Complete Time: 10:49 sp3 12/11 09:11 Order name: EKG; Complete Time: 09:12 sp3 12/11 11:47 Order name: CONS Physician Consult EDMS 12/11 09:11 Order name: Cardiac monitoring; Complete Time: 09:38 sp3 12/11 09:11 Order name: EKG - Nurse/Tech; Complete Time: 09:38 sp3 12/11 09:11 Order name: IV Saline Lock; Complete Time: 09:38 sp3 12/11 09:11 Order name: Labs collected and sent; Complete Time: 09:38 sp3 12/11 09:11 Order name: O2 Per Protocol; Complete Time: 09:19 sp3 12/11 09:11 Order name: O2 Sat Monitoring; Complete Time: 09:19 sp3 Administered Medications: 09:38 Drug: NS 0.9% IV 1000 ml IV at 1 bolus Per protocol; 1000 mL bolus Route: IV; Rate: 1 kc6 bolus; Site: right forearm; 11:32 Follow up: Response: No adverse reaction; IV Status: Completed infusion; IV Intake: kc6 1000ml 11:12 Drug: Furosemide IVP 40 mg IVP once; give over 2 minutes Route: IVP; Site: right kc6 forearm; 12:14 Follow up: Response: No adverse reaction kc6 11:12 Drug: Ciprofloxacin IVPB 400 mg 200 ml IVPB once over 60 mins Volume: 200 ml; Route: kc6 IVPB; Infused Over: 60 mins; Site: right forearm; 12:14 Follow up: Response: No adverse reaction; IV Status: Completed infusion; IV Intake: kc6 200ml 11:12 Drug: metroNIDAZOLE IVPB 500 mg 100 ml IVPB at 200 ml/hr once over 30 mins Volume: 100 kc6 ml; Route: IVPB; Rate: 200 ml/hr; Infused Over: 30 mins; Site: right forearm; 12:14 Follow up: Response: No adverse reaction; IV Status: Completed infusion; IV Intake: kc6 100ml Disposition Summary: 12/12/23 11:10 Hospitalization Ordered Notes: Hospitalization Status: Inpatient Admission sp3 Provider: Karina Kemp Location: Telemetry/[facility] (Inpatient) sp3 Condition: Stable sp3 Problem: an acute exacerbation sp3 Symptoms: have worsened sp3 Bed/Room Type: Standard sp3 Room Assignment: 402(12/12/23 12:21) bd Diagnosis - Volume overload, gastroenteritis sp3 Forms: - Medication Reconciliation Form sp3 - SBAR form sp3 - Leadership Thank You Letter sp3 Signatures: Dispatcher [employer] EDMS Tylorlila LaRogelio Kirkland MD MD sp3 Xuan Calhoun RN RN kc6 Corrections: (The following items were deleted from the chart) 09:41 09:33 ECG was reviewed by the Attending Physician. EKG demonstrates normal sinus rhythm sp3 at 98 bpm with normal intervals, normal axis, mild high voltage and diffuse ST's ST changes without evidence of acute ischemia with a QTc of 467 sp3 12:21 11:10 sp3 bd
--- NOTE | 2023-12-12 11:10 | ER ---
Nurse's Notes [facility] Name: Sylvain Veronica Age: 73 yrs Sex: Male : 1950 Arrival Date: 12/12/2023 Time: 08:29 Bed 18 Private MD: Diagnosis: Volume overload, gastroenteritis Presentation: 12/11 08:57 Chief complaint: Patient states: cough, congestion and abdominal pain x2-3 days. denies kc6 fever. Coronavirus screen: At this time, the client does not indicate any symptoms associated with coronavirus-19. Ebola Screen: No symptoms or risks identified at this time. Initial Sepsis Screen: Does the patient meet any 2 criteria? No. Patient's initial sepsis screen is negative. Does the patient have a suspected source of infection? No. Patient's initial sepsis screen is negative. Risk Assessment: Do you want to hurt yourself or someone else? Patient reports no desire to harm self or others. Onset of symptoms was December 12, 2023. 08:57 Method Of Arrival: Ambulatory [facility] 08:57 Acuity: JACKIE 3 kc6 Triage Assessment: 08:58 General: Appears in no apparent distress. comfortable, well groomed, well developed, kc6 Behavior is calm, cooperative, appropriate for age. Pain: Complains of pain in back and abdomen. EENT: Reports nasal congestion. Neuro: Level of Consciousness is awake, alert, obeys commands, Oriented to person, place, time, situation, Appropriate for age Reports weakness. Cardiovascular: Capillary refill < 3 seconds. Respiratory: Reports cough that is non-productive, Airway is patent Trachea midline Respiratory effort is even, unlabored, Respiratory pattern is regular, symmetrical, GI: No signs and/or symptoms were reported involving the gastrointestinal system. : No signs and/or symptoms were reported regarding the genitourinary system. Derm: No signs and/or symptoms reported regarding the dermatologic system. Skin is intact, is healthy with good turgor, Skin is pink, warm \T\ dry. Musculoskeletal: No signs and/or symptoms reported regarding the musculoskeletal system. Circulation, motion, and sensation intact. Capillary refill < 3 seconds, Range of motion: intact in all extremities. Historical: - Allergies: 08:58 No Known Allergies; kc6 - PMHx: 08:58 Congestive heart failure; Systolic; Diabetes - IDDM; Hypertensive disorder; kidney kc6 disease; CKD 3; - PSHx: 08:58 Appendectomy; cardiac stents; Cholecystectomy; kc6 - Immunization history:: Client reports receiving the 1st dose of the Covid vaccine, Flu vaccine is not up to date. - Infectious Disease History:: Denies. - Social history:: Smoking status: Patient denies any tobacco usage or history of. Screenin:00 [facility] ED Fall Risk Assessment (Adult) History of falling in the last 3 months, kc6 including since admission No falls in past 3 months (0 pts) Confusion or Disorientation No (0 pts) Intoxicated or Sedated No (0 pts) Impaired Gait No (0 pts) Mobility Assist Device Used No (0 pt) Altered Elimination No (0 pt) Score/Fall Risk Level 0 - 2 = Low Risk. Abuse screen: Denies threats or abuse. Denies injuries from another. Nutritional screening: No deficits noted. Tuberculosis screening: No symptoms or risk factors identified. Assessment: 08:59 Reassessment: please see triage. kc6 10:01 Reassessment: Patient appears in no apparent distress at this time. No changes from 6 previously documented assessment. Patient and/or family updated on plan of care and expected duration. Pain level reassessed. Patient is alert, oriented x 3, equal unlabored respirations, skin warm/dry/pink. 11:07 Reassessment: Patient appears in no apparent distress at this time. No changes from kc6 previously documented assessment. Patient and/or family updated on plan of care and expected duration. Pain level reassessed. Patient is alert, oriented x 3, equal unlabored respirations, skin warm/dry/pink. 12:15 Reassessment: Patient appears in no apparent distress at this time. No changes from kc6 previously documented assessment. Patient and/or family updated on plan of care and expected duration. Pain level reassessed. Patient is alert, oriented x 3, equal unlabored respirations, skin warm/dry/pink. 13:15 Reassessment: Patient appears in no apparent distress at this time. No changes from kc6 previously documented assessment. Patient and/or family updated on plan of care and expected duration. Pain level reassessed. Patient is alert, oriented x 3, equal unlabored respirations, skin warm/dry/pink. Vital Signs: 08:57 BP 154 / 85; Pulse 115; Resp 19 S; Temp 98(O); Pulse Ox 99% on R/A; Weight 81.65 kg kc6 (R); Height 5 ft. 10 in. (R); 10:01 BP 141 / 72; Pulse 97; Resp 18 S; Pulse Ox 100% on R/A; kc6 11:07 BP 164 / 97; Pulse 110; Resp 16 S; Pulse Ox 100% on R/A; kc6 12:15 BP 147 / 84; Pulse 100; Resp 18 S; Pulse Ox 98% on R/A; kc6 08:57 Body Mass Index 25.83 (81.65 kg, 177.8 cm) 6 ED Course: 08:33 Patient arrived in ED. im 08:52 Xuan Calhoun, CHUCK is Primary Nurse. kc6 08:58 Triage completed. kc6 08:58 Arm band placed on. kc6 09:00 Rogelio Warren MD is Attending Physician. sp3 09:00 Patient has correct armband on for positive identification. Bed in low position. Call [facility] light in reach. Side rails up X 1. Client placed on continuous cardiac and pulse oximetry monitoring. NIBP monitoring applied. 09:38 XRAY Chest (1 view) In Process Unspecified. EDMS 09:38 Inserted saline lock: 20 gauge in right forearm, using aseptic technique. Blood [facility] collected. 09:46 CT Abd/Pelvis - IV Contrast Only In Process Unspecified. EDMS 11:09 Karina Kemp MD is Hospitalizing Provider. sp3 13:24 No provider procedures requiring assistance completed. Patient admitted, IV remains in [address] Administered Medications: 09:38 Drug: NS 0.9% IV 1000 ml IV at 1 bolus Per protocol; 1000 mL bolus Route: IV; Rate: 1 kc6 bolus; Site: right forearm; 11:32 Follow up: Response: No adverse reaction; IV Status: Completed infusion; IV Intake: kc6 1000ml 11:12 Drug: Furosemide IVP 40 mg IVP once; give over 2 minutes Route: IVP; Site: right kc6 forearm; 12:14 Follow up: Response: No adverse reaction 6 11:12 Drug: Ciprofloxacin IVPB 400 mg 200 ml IVPB once over 60 mins Volume: 200 ml; Route: kc6 IVPB; Infused Over: 60 mins; Site: right forearm; 12:14 Follow up: Response: No adverse reaction; IV Status: Completed infusion; IV Intake: kc6 200ml 11:12 Drug: metroNIDAZOLE IVPB 500 mg 100 ml IVPB at 200 ml/hr once over 30 mins Volume: 100 kc6 ml; Route: IVPB; Rate: 200 ml/hr; Infused Over: 30 mins; Site: right forearm; 12:14 Follow up: Response: No adverse reaction; IV Status: Completed infusion; IV Intake: kc6 100ml Medication: 13:25 VIS not applicable for this client. kc6 Intake: 11:32 IV: 1000ml; Total: 1000ml. kc6 12:14 IV: 100ml; Total: 1100ml. kc6 12:14 IV: 200ml; Total: 1300ml. kc6 Outcome: 11:10 Decision to Hospitalize by Provider. sp3 13:24 Admitted to Med/surg accompanied by tech, via wheelchair, room 402, with chart, kc6 13:24 Condition: good 13:24 Instructed on the need for admit, 13:25 Patient left the ED. kc6 Signatures: Dispatcher [employer] EDRogelio Berkowitz MD MD sp3 Xuan Calhoun RN RN kc6 Jacqueline Colby Corrections: (The following items were deleted from the chart) 08:58 08:57 BP 154 / 85; Pulse 11bpm; Resp 19bpm; Spontaneous; Pulse Ox 99% RA; Temp 98F kc6 Oral; 81.65 kg Reported; Height 5 ft. 10 in. Reported; BMI: 25.8; kc6
--- NOTE | 2023-12-12 11:39 | P.HP ---
Certification for Inpatient Patient admitted to: Observation With expected LOS: <2 Midnights Practitioner: I am a practitioner with admitting privileges, knowledge of patient current condition, hospital course, and medical plan of care. Services: Services provided to patient in accordance with Admission requirements found in Title 42 Section 412.3 of the Code of Federal Regulations Patient History Date of Service: 12/12/23 Reason for admission: shortness of breath History of Present Illness: 73-year-old gentleman who has a history of chronic kidney disease secondary to hypertension, diabetes who presents to the emergency room with complaints of shortness of breath. He reports nonproductive cough, shortness of breath worse w exertion, worse when laying flat. he reports nausea, diarrhea, no vomiting,, He denies chest pain, no reported chest pressure, no fever. No reported recent antibiotic use. He reports lives with his daughter, no reported use of home 02. Plan to admit for elev troponin, enteritis, renal failure, Lab evaluation Troponin 121, BNP 27,307, BUN 43, Cr 2.81, microcytic anemia HH 8.0, HCT 23.8, Nephrology, cardiology to consulted CT abdomen pelvis IMPRESSION: Small layering right pleural effusion. Nonspecific fluid opacification of nondistended small bowel loops throughout the abdomen as well as the cecal bulb, findings may relate to mild enteritis or diarrheal state. No other acute intraabdominal process. IMPRESSION: Stable interstitial changes, which may relate to central congestion, probably with underlying chronic interstitial/fibrotic changes. Allergies No Known Allergies Allergy (Verified 12/12/23 13:49) Home Medications: Aspirin [Aspirin EC] 81 mg PO DAILY #30 tab 11/13/23 Atorvastatin Calcium [Lipitor] 40 mg PO BEDTIME #30 tab 11/13/23 Furosemide 40 mg PO BID 30 Days #60 tab 11/13/23 Metoprolol Tartrate [Lopressor*] 25 mg PO BID 6AM 6PM #60 tab 11/13/23 Sacubitril/Valsartan [Entresto 24 mg-26 mg Tablet] 1 tab PO BID 12/12/23 - Past Medical/Surgical History Diabetic: Yes -: Diabetes mellitus type 2insulin-dependent -: Hypertension -: Chronic systolic CHF with EF=40% -: CAD -: CKD III -: Cholecystectomy -: Cardiac catheterization: 2 stents Psychosocial/ Personal History: Patient is . Lives at home. - Family History Father -: Diabetes Mother -: Diabetes - Social History Alcohol use: Yes CD- Drugs: No Caffeine use: Yes Review of Systems per HPI Physical Examination - Physical Exam General: Alert, Oriented x3, Other (Dyspnea with conversation) HEENT: Atraumatic, Normocephalic Neck: Supple, 2+ carotid pulse no bruit Respiratory: Diminished, Crackles/rales Cardiovascular: Normal pulses, Regular rate/rhythm Gastrointestinal: Tenderness (diarrhea) Musculoskeletal: No clubbing, No swelling Integumentary: No rashes, No breakdown Neurological: Normal speech, Normal strength at 5/5 x4 extr - Studies Laboratory Data (last 24 hrs) 12/12/23 12/12/23 12/12/23 09:32 09:32 09:32 WBC 7.00 Hgb 8.0 L Hct 23.8 L Plt Count 262 PT 13.6 H INR 1.24 Sodium 136 Potassium 4.1 BUN 43 H Creatinine 2.81 H Glucose 170 H Magnesium 2.0 Total Bilirubin 0.7 AST 12 L ALT 20 Alkaline Phosphatase 104 Assessment and Plan - Plan Assessment plan Acute hypoxic respiratory failure secondary to fluid volume overload Acute on chronic heart failure unknown baseline Elevated troponin Elevated BNP Cardiology consult, telemetry trend troponin 121 Trend [id number] O2 2 L keep sats greater than 90% CT abdomen pelvisMPRESSION: Small layering right pleural effusion. Nonspecific fluid opacification of nondistended small bowel loops throughout the abdomen as well as the cecal bulb, findings may relate to mild enteritis or diarrheal state. No other acute intraabdominal process. IMPRESSION: Stable interstitial changes, which may relate to central congestion, probably with underlying chronic interstitial/fibrotic changes. Renal failure CKD unknown baseline Nephrology consult, diuretics, Daily weight, Enteritis Gastroenteritis Clear liquid diet IV Flagyl, IV Cipro, as needed antiemetics, as needed analgesics Stool culture Microcytic anemia 8.9, 23.8 Transfuse less than 7 Diabetes type 2 unknown control Accu-Cheks, sliding scale insulin Code full code DVT heparin Diet clear liquid Disposition Home with daughter independent prior to admission Discharge Plan: Home - Advance Directives Does patient have a Living Will: No Does patient have a Durable POA for Healthcare: No - Code Status/Comfort Care Code Status: Full Code Critical Care: No Time Spent Managing Pts Care (In Minutes): 55
[2023-12-12] MEDS ORDERED: ONDANSETRON 4 MG/2 ML VIAL IV PRN (11:43)
[2023-12-12] MEDS ORDERED: D50W 25 GM/50 ML SYRINGE IV PRN (11:51)
[2023-12-12] MEDS ORDERED: GLUCAGON 1 MG/VIAL IM PRN (11:51)
[2023-12-12] MEDS ORDERED: NITROGLYCERIN 0.4 MG/TAB SL PRN (11:52)
[2023-12-12] MEDS ORDERED: MORPHINE 2 MG/ML SYR IV PRN (11:52)
[2023-12-12] MEDS: ACETAMINOPHEN 500 MG TAB PO PRN (13:53)
[2023-12-12 14:23] VITALS: BMI 25.8
[2023-12-12] MEDS: DIPHENHYDRAMINE 50 MG/ML VIAL IV PRN (14:41)
[2023-12-12] MEDS ORDERED: PNEUMOCOCCAL VACCINE 0.5 ML IMVAC ONE (15:00)
[2023-12-12] MEDS: INSULIN REGULAR (HUMAN) 100 UNIT/ML SQ SCH (16:30)
[2023-12-12 16:54] LABS: INFLUENZA A NAA NEGATIVE (NEGATIVE); SARS-COV-2 RT PCR NEGATIVE (NEGATIVE)
[2023-12-12] MEDS: HEPARIN 5000 UNIT/ML 1 ML VIAL SQ SCH (17:32)
[2023-12-12] MEDS: FUROSEMIDE 40 MG/4 ML VIAL IV SCH (17:32)
[2023-12-12] MEDS ORDERED: DIPHENHYDRAMINE 50 MG/ML VIAL IV PRN (19:47)
[2023-12-12 19:55] LABS: UR PROTEIN 42.5 mg/dL (<11.9)
[2023-12-12 19:58] LABS: Sqamous Epithelial <5 /HPF (None Seen); Urine Bacteria None Seen /HPF (<20); Urine Bilirubin NEGATIVE (Negative); Urine Blood Trace (Negative); Urine Clarity Clear (Clear); Urine Color Colorless (Yellow); Urine Culture Reflex Order NOT NEEDED; Urine Glucose NEGATIVE (Negative); Urine Ketones NEGATIVE (Negative); Urine Micro Reflex YN NO BILL MICROSCOPIC; Urine Mucus Slight /HPF (None Seen); Urine Nitrite NEGATIVE (Negative); Urine Protein 1+ (Negative); Urine RBC <5 /HPF (None Seen); Urine Urobilinogen Normal (Normal); Urine WBC <5 /HPF (<5)
[2023-12-12 20:11] LABS: UR CREAT < 18.0 mg/dL (20-370)
[2023-12-12] MEDS: METRONIDAZOLE 500mg IVPB 500 MG/100 ML BAG IV SCH (20:24)
[2023-12-12] MEDS: Ciprofloxacin 200mg IV 200 MG/100 ML IV.SOLN. IV SCH (20:24)
[2023-12-12] MEDS: BENZONATATE 100 MG CAP PO PRN (21:07)
[2023-12-13 04:00] LABS: Absolute Eosinophils 0.2 K/uL (0-0.5); Absolute Lymphocytes (CBC) 0.9 K/uL (0.7-4.9); Absolute Monocytes 0.5 K/uL (0.1-1.3); Absolute Neutrophil 4.8 K/uL (1.8-8.0); Basophils % 0.6 % (0-1.3); Eosinophils % 2.9 % (0-4.4); Hematocrit 23.9 % (39.6-49.0); Hemoglobin 8.1 g/dL (13.6-17.9); Lymphocytes % 13.4 % (15.3-44.8); MCH 27.4 pg (27.0-35.0); MCV 80.6 fL (80-100); MPV 7.6 fL (7.6-11.3); Monocytes % 8.1 % (3.3-12.3); Platelets 251 thou/uL (152-406); RBC Red Blood Cell Count 2.96 M/uL (4.33-5.43); Red Cell Distribution Width 15.7 % (12.1-15.2)
[2023-12-13 04:13] LABS: Albumin 3.3 g/dL (3.4-5.0); Anion Gap 11.6 mEq/L (5.0-15.0); Magnesium 1.9 mg/dL (1.6-2.4); Phosphorus 3.8 mg/dL (2.5-4.9); Potassium 3.6 mEq/L (3.5-5.1); Thyroid Stimulating Hormone 0.468 uIU/mL (0.358-3.740)
[2023-12-13 05:52] LABS: C.diff Antigen/Toxin Ag neg : Tox neg (NEG : NEG); CDIFF INTERNAL NEG CONTROL White Background (WHITE BKGD); STOOL CONSISTENCY Liquid/Semi-Solid
--- NOTE | 2023-12-13 07:49 | P.PN ---
Subjective Date of Service: 12/13/23 Chief Complaint: shortness of breath Admitted for fluid volume overload, secondary to CKD, nephrology consulted, elevated BNP 97384 Elevated cardiac enzymes, cardiology consulted, no reported chest pain, troponin 121 Reports nasal drainage, COVID flu ordered negative Enteritis, stool culture ordered C. difficile negative - Physical Exam General: Alert, Oriented x3, Other (Dyspnea with conversation) HEENT: Atraumatic, Normocephalic, rhinorrhea Neck: Supple, 2+ carotid pulse no bruit Respiratory: Diminished, Crackles/rales Cardiovascular: Normal pulses, Regular rate/rhythm Gastrointestinal: Tenderness (diarrhea) Musculoskeletal: No clubbing, No swelling Integumentary: No rashes, No breakdown Neurological: Normal speech, Normal strength at 5/5 x4 extr Review of Systems Per HPI Physical Examination - Vital Signs Temperature: 98.5 F Blood Pressure: 153/82 Pulse: 90 Respirations: 16 Pulse Ox (%): 99 - Studies Laboratory Data (last 24 hrs) 12/12/23 12/12/23 12/12/23 09:32 09:32 09:32 WBC 7.00 Hgb 8.0 L Hct 23.8 L Plt Count 262 PT 13.6 H INR 1.24 Sodium 136 Potassium 4.1 BUN 43 H Creatinine 2.81 H Glucose 170 H Magnesium 2.0 Total Bilirubin 0.7 AST 12 L ALT 20 Alkaline Phosphatase 104 Assessment And Plan - Plan Assessment plan Acute hypoxic respiratory failure secondary to fluid volume overload Acute on chronic heart failure unknown baseline Elevated troponin Elevated BNP Cardiology consult, telemetry trend troponin 121, 122 Trend [id number] O2 2 L keep sats greater than 90% Daily weight, I&O Renal failure CKD unknown baseline Nephrology consult, diuretics, Daily weight, Enteritis Gastroenteritis Clear liquid diet IV Flagyl, IV Cipro, as needed antiemetics, as needed analgesics Stool culture negative for C. difficile Rhinorrhea COVID flu negative, as needed Benadryl Microcytic anemia 8.9, 23.8-> 8.1/23 Transfuse less than 7 Diabetes type 2 unknown control Accu-Cheks, sliding scale insulin Code full code DVT heparin Diet clear liquid Disposition Home with daughter independent prior to admission Discharge Plan: Home - Code Status/Comfort Care Code Status: Full Code Critical Care: No Time Spent Managing PTS Care (In Minutes): 35
[2023-12-13] MEDS: POTASSIUM CL SA 10 MEQ TAB PO ONE (08:06)
--- NOTE | 2023-12-13 13:20 | CON ---
Date of Consultation: 12/12/2023 Reason For Consultation: Elevated BUN and creatinine, fluid management, acidosis. History Of Present Illness: This is a pleasant 73-year-old gentleman with significant past medical h istory of diabetes since 1999, complicated with neuropathy and nephropathy, hypertension, hyperlipide marianela, congestive heart failure, chronic kidney disease stage 3B secondary to cardiorenal and diabetes nephropathy, baseline creatinine around 2.7, GFR of 25. The patient came to the hospital complaining of cough and shortness of breath with orthopnea. The patient was ruled out of COVID. Primary lab s howed elevation in BUN and creatinine. For that reason, we have been consulted. The patient denied taking any nonsteroidal. The patient recently discharged from the hospital. Upon discharge from the hospital back in October, creatinine 3.8 and GFR of 16. Past Medical History: Includes: 1.Chronic kidney disease stage 4 secondary to cardiorenal, baseline creatinine 2.7 to 3, GFR of 20, normal size kidney 06/06, proteinuric, nonnephrotic. 2.Hypertension. 3.Congestive heart failure with ejection fraction of 45%. 4.Hyperlipidemia. Home Medications: Include: 1.Entresto. 2.Metoprolol. 3.Lasix. 4.Atorvastatin. 5.Aspirin. Family History: Positive for hypertension. Social History: Active alcohol. Denied drug abuse. Denies smoking. Review of Systems: Head and Neck: No red eye, no ear pain. GI: No nausea, no vomiting. : No polyuria, no dysuria, no hematuria. Investor Relations Specialist: Not applicable. Respiratory: Has shortness of breath, has cough. Cardiovascular: Has orthopnea. Endocrine: No polydipsia. Skin: No rash. Neuro: Has neuropathy. Physical Examination: Vital Signs: When I saw the patient, blood pressure 156/80, pulse of 99, afebrile. Chest: Crackles bilateral. Heart: S1, S2, systolic murmur. Abdomen: Soft, nontender. Extremities: No edema. Neuro: Alert. No focality. Lab Data: Sodium 136, potassium 2.4, bicarb 21, BUN 43, creatinine 2.8, GFR 23. Calcium 9.1, albumi n 3.2. Troponin 121. WBC 6.4, hemoglobin of 8. Assessment And Plan: 1.Acute kidney injury on chronic kidney disease secondary to cardiorenal, over-volume. I am going t o go ahead and resume the patient on diuresis Lasix b.i.d. and we will follow up the patient. 2.Cardiorenal syndrome with exacerbation. Start the patient on diuresis. 3.Hypertension, controlled, optimal. With the presence of acute kidney injury, I am going to back u p on Entresto, resume Lasix. 4.Respiratory failure, combined, secondary to pneumonia/CHF exacerbation, as above. 5.Hyponatremia secondary to cardiorenal, will be corrected with diuresis. 6.Chronic kidney disease stage 4, advanced, with acute kidney injury, as above. KEYANA/NEYDA Voice ID: [id number] Report ID: [id number]
--- NOTE | 2023-12-13 13:50 | PN ---
Date of Progress Note: 12/13/2023 Subjective: The patient was admitted to the hospital with acute kidney injury secondary to cardioren al and pneumonia. The patient was started on aggressive diuresis. The patient is feeling better. S hortness of breath has been subsided. The patient is on room air. Physical Examination: Vital Signs: Blood pressure 156/80, pulse of 99, afebrile. Chest: Clear to auscultation. Heart: S1, S2. Regular. Systolic murmur. Abdomen: Soft, nontender. Extremities: Trace edema. Neuro: Alert. No focality. Laboratory Data: Sodium 136, potassium 3.6, bicarb 22, BUN 39, creatinine 2.9, calcium 7.6. Albumin 3.3. Corrected calcium 8.4. Hemoglobin 8.1. Current Medications: The patient is on includes: 1.Ciprofloxacin. 2.Metronidazole. 3.Nitroglycerin. 4.Tylenol. 5.Lasix 40 b.i.d. 6.Zofran. 7.KCl. Assessment And Plan: 1.Acute kidney injury on chronic kidney disease, close to his baseline normal volume currently. I a m going to continue current diuresis dose. We will continue to monitor the patient. 2.Hyponatremia, dilutional. Continue diuresis. 3.Chronic kidney disease with acute kidney injury as above. 4.Hypokalemia. Continue supplement. We will consider spironolactone down in the row. 5.Hypertension, controlled, optimal. We will resume Entresto as outpatient. 6.Respiratory failure secondary to overvolume/pneumonia. Continue to optimize the fluid status. The patient is cleared from the Renal standpoint for discharge planning. KEYANA/NEYDA Voice ID: [id number] Report ID: [id number]
[2023-12-13] MEDS: FUROSEMIDE 40 MG TABLET PO SCH (18:06)
[2023-12-14 06:41] LABS: Absolute Basophils 0.1 K/uL (0-0.5); Absolute Eosinophils 0.2 K/uL (0-0.5); Absolute Lymphocytes (CBC) 0.9 K/uL (0.7-4.9); Absolute Monocytes 0.5 K/uL (0.1-1.3); Absolute Neutrophil 3.2 K/uL (1.8-8.0); Eosinophils % 4.4 % (0-4.4); Hematocrit 26.3 % (39.6-49.0); Hemoglobin 8.7 g/dL (13.6-17.9); Lymphocytes % 18.3 % (15.3-44.8); MCH 26.6 pg (27.0-35.0); MCHC 33.2 g/dL (32.0-36.0); MCV 80.2 fL (80-100); MPV 7.9 fL (7.6-11.3); Neutrophils % 65.3 % (41.7-73.7); Platelets 288 thou/uL (152-406); RBC Red Blood Cell Count 3.28 M/uL (4.33-5.43); Red Cell Distribution Width 15.6 % (12.1-15.2)
[2023-12-14 07:05] LABS: Albumin 3.4 g/dL (3.4-5.0); Anion Gap 9.6 mEq/L (5.0-15.0); Phosphorus 4.6 mg/dL (2.5-4.9); Potassium 3.6 mEq/L (3.5-5.1)
--- NOTE | 2023-12-14 07:44 | P.PN ---
Subjective Date of Service: 12/14/23 Chief Complaint: shortness of breath Currently 98% on room air, ambulating in hallway without distress Admitted for fluid volume overload, secondary to CKD, nephrology consulted, elevated BNP 25972 Elevated cardiac enzymes, cardiology consulted, no reported chest pain, troponin 121 Reports nasal drainage, COVID flu ordered negative Enteritis, stool culture ordered C. difficile negative - Physical Exam General: Alert, Oriented x3, HEENT: Atraumatic, Normocephalic, rhinorrhea Neck: Supple, 2+ carotid pulse no bruit Respiratory: Diminished, Cardiovascular: Normal pulses, Regular rate/rhythm Gastrointestinal: Tenderness (diarrhea) Musculoskeletal: No clubbing, No swelling Integumentary: No rashes, No breakdown Neurological: Normal speech, Normal strength at 5/5 x4 extr Review of Systems Per HPI Physical Examination - Vital Signs Temperature: 97.9 F Blood Pressure: 126/68 Pulse: 90 Respirations: 20 Pulse Ox (%): 99 Assessment And Plan - Plan Assessment plan Acute hypoxic respiratory failure secondary to fluid volume overload improved Acute on chronic heart failure unknown baseline Elevated troponin Elevated BNP Cardiology consult, telemetry trend troponin 121, 122 Trend [id number] O2 2 L keep sats greater than 90% Daily weight, I&O Acute kidney injury unknown baseline CKD unknown baseline Nephrology consult, diuretics, Daily weight, Enteritis Gastroenteritis Clear liquid diet IV Flagyl, IV Cipro, as needed antiemetics, as needed analgesics Stool culture negative for C. difficile Rhinorrhea COVID flu negative, as needed Benadryl Microcytic anemia 8.9, 23.8-> 8.1/23 Transfuse less than 7 Diabetes type 2 unknown control Accu-Cheks, sliding scale insulin Code full code DVT heparin Diet clear liquid Disposition Home with daughter independent prior to admission Discharge Plan: Home - Code Status/Comfort Care Code Status: Full Code Critical Care: No Time Spent Managing PTS Care (In Minutes): 35
[2023-12-14 09:20] VITALS: O2SAT 99
[2023-12-14] MEDS: POTASSIUM CL SA 10 MEQ TAB PO ONE (09:38)
[2023-12-14 11:19] LABS: Anion Gap 8.1 mEq/L (5.0-15.0); Potassium 4.1 mEq/L (3.5-5.1)
[2023-12-14 12:15] VITALS: BP 154/77; TEMP 98.1
--- NOTE | 2023-12-14 15:42 | P.DS ---
Admission Date: 12/13/23 Discharge Date: 12/14/23 Disposition: ROUTINE DISCHARGE Discharge Condition: GOOD Reason for Admission: shortness of breath Brief History of Present Illness: 73-year-old gentleman who has a history of chronic kidney disease secondary to hypertension, diabetes who presents to the emergency room with complaints of shortness of breath. He reports nonproductive cough, shortness of breath worse w exertion, worse when laying flat. he reports nausea, diarrhea, no vomiting,, He denies chest pain, no reported chest pressure, no fever. No reported recent antibiotic use. He reports lives with his daughter, no reported use of home 02. Plan to admit for elev troponin, enteritis, renal failure, Lab evaluation Troponin 121, BNP 27,307, BUN 43, Cr 2.81, microcytic anemia HH 8.0, HCT 23.8, Nephrology, cardiology to consulted CT abdomen pelvis IMPRESSION: Small layering right pleural effusion. Nonspecific fluid opacification of nondistended small bowel loops throughout the abdomen as well as the cecal bulb, findings may relate to mild enteritis or diarrheal state. No other acute intraabdominal process. IMPRESSION: Stable interstitial changes, which may relate to central congestion, probably with underlying chronic interstitial/fibrotic changes. - Physical Exam General: Alert, Oriented x3, HEENT: Atraumatic, Normocephalic, rhinorrhea Neck: Supple, 2+ carotid pulse no bruit Respiratory: Diminished, Cardiovascular: Normal pulses, Regular rate/rhythm nontender Musculoskeletal: No clubbing, No swelling Gastrointestinal nontender Integumentary: No rashes, No breakdown Neurological: Normal speech, Normal strength at 5/5 x4 extr Hospital Course: 73 year old male presented with who has a history of chronic kidney disease secondary to hypertension, diabetes who presents to the emergency room with complaints of shortness of breath. Acute on chronic heart failure. Was noted to have elevated troponin, elevated BNP, CKD, nephrology cardiology was consulted. Additionally had some enteritis on CT of the abdomen. Was treated with IV antibiotics. Treated with Lasix. Patient ambulating independently, on room air was evaluated by nephrology, needs to follow-up with nephrology after discharge. Follow-up with primary care after discharge. Follow up with Cardiolgy outpatient. CT abdomen pelvisMPRESSION: Small layering right pleural effusion. Nonspecific fluid opacification of nondistended small bowel loops throughout the abdomen as well as the cecal bulb, findings may relate to mild enteritis or diarrheal state. No other acute intraabdominal process. IMPRESSION: Stable interstitial changes, which may relate to central congestion, probably with underlying chronic interstitial/fibrotic changes. PROBLEM: Dyspnea acute on chronic heart failure from fluid volume overload, EF 40% CKD stage III Fluid volume overload treated with diuretics, Elevated troponin no reported chest pain, Enteritis-treated with IV antibiotics, discharged home on p.o. antibiotic Nasal drainage, covid and flu swabs negative Follow-up with nephrology after discharge Dr Carmona Follow-up with cardiology after discharge Dr Bragg Continue home medicines as previously prescribed GOAL: Clear understanding of disease process INSTRUCTIONS: Physician Discharge Instructions: -Follow-up with PCP in 1 to 2 weeks -Please call Dr. Kemp at [phone] if any questions regarding hospital stay -Please call nursing station at [phone] if any nursing or medication questions -Return to the emergency room if symptoms worsen Diet: ADA, low sodium Activity: Fall precautions Vital Signs/Physical Exam: Temp Pulse Resp BP Pulse Ox 98.1 F 91 H 16 154/77 H 99 12/14/23 11:43 12/14/23 11:43 12/14/23 11:43 12/14/23 11:43 12/14/23 11:43 Laboratory Data at Discharge: WBC 5.00 thou/uL (4.3-10.9) 12/14/23 06:00 Hgb 8.7 g/dL (13.6-17.9) L 12/14/23 06:00 Hct 26.3 % (39.6-49.0) L 12/14/23 06:00 Plt Count 288 thou/uL (152-406) 12/14/23 06:00 PT 13.6 SECONDS (9.5-12.5) H 12/12/23 09:32 INR 1.24 12/12/23 09:32 Sodium 134 mEq/L (136-145) L 12/14/23 10:46 Potassium 4.1 mEq/L (3.5-5.1) D 12/14/23 10:46 BUN 37 mg/dL (7-18) H 12/14/23 10:46 Creatinine 3.38 mg/dL (0.70-1.30) H 12/14/23 10:46 Glucose 101 mg/dL (74-106) 12/14/23 10:46 Phosphorus 4.6 mg/dL (2.5-4.9) 12/14/23 06:00 Magnesium 2.0 mg/dL (1.6-2.4) 12/14/23 06:00 Total Bilirubin 0.7 mg/dL (0.2-1.0) 12/12/23 09:32 AST 12 U/L (15-37) L 12/12/23 09:32 ALT 20 U/L (16-61) 12/12/23 09:32 Alkaline Phosphatase 104 U/L (45-117) 12/12/23 09:32 Home Medications: Aspirin [Aspirin EC] 81 mg PO DAILY #30 tab 11/13/23 Atorvastatin Calcium [Lipitor] 40 mg PO BEDTIME #30 tab 11/13/23 Furosemide 40 mg PO BID 30 Days #60 tab 11/13/23 Metoprolol Tartrate [Lopressor*] 25 mg PO BID 6AM 6PM #60 tab 11/13/23 Sacubitril/Valsartan [Entresto 24 mg-26 mg Tablet] 1 tab PO BID 12/12/23 Benzonatate [Tessalon Perle*] 100 mg PO TID PRN #30 cap 12/14/23 Ciprofloxacin HCl [Cipro 250 MG Tablet*] 250 mg PO BID #14 tab 12/14/23 metroNIDAZOLE [Flagyl] 250 mg PO Q8H #20 tab 12/14/23 New Medications: Ciprofloxacin HCl [Cipro 250 MG Tablet*] 250 mg PO BID #14 tab metroNIDAZOLE [Flagyl] 250 mg PO Q8H #20 tab Benzonatate [Tessalon Perle*] 100 mg PO TID PRN #30 cap PRN Reason: Cough Physician Discharge Instructions: -DC IV and DC home -Follow-up with PCP in 1 to 2 weeks -Follow-up with Nephrology in 1 to 2 weeks -Follow-up with Cardiology in 1 to 2 weeks -Follow-up with gastroenterology in 2 to 4 weeks for further evaluation with colonoscopy -Please call Dr. Kemp at [phone] if any questions regarding hospital stay -Please call nursing station at [phone] if any nursing or medication questions -Return to the emergency room if symptoms worsen Diet: Low sodium Activity: Fall precautions Followup: Heriberto Salazar MD [ACTIVE - CAN ADMIT] - 1-2 Weeks Arie Bragg MD [ACTIVE - CAN ADMIT] - Nel Henley [Primary Care Provider] - 1-2 Weeks Time spent managing pt's care (in minutes): 55
--- NOTE | 2023-12-14 20:16 | CON ---
Date of Consultation: 12/13/2023 Reason For Consultation: Elevated troponin. History Of Present Illness: 73-year-old male with history of chronic kidney disease, hypertension, efrain yossi, presented with shortness of breath and cough. Shortness of breath is worse when he lies fla t. Denies having any chest pain. No nausea, vomiting, or diarrhea. No abdominal pain. He was seen in my office in the past and recommended cardiac evaluation, but he never followed through. He preeti es having any active chest pain. Past Medical History: As outlined above in the HPI; diabetes, hypertension, CHF, chronic kidney dise ase, and coronary artery disease, status post cardiac stents in the past. Past Surgical History: Cardiac stents placement. Medications: Refer to reconciliation sheet for detailed list. Allergies: NO KNOWN DRUG ALLERGIES. Family History: No premature coronary artery disease or cancer. Social History: He does not smoke or drink. Does not use any drugs. Review of Systems: All systems reviewed and they were negative except as mentioned in the HPI. Physical Examination: Vital Signs: Reviewed. Head and Neck: Pupils are equal, reactive to light. Intact eye movement. No JVD. No cervical lymp hadenopathy. Neck is supple. Thyroid is not enlarged. Lungs: Decreased breathing sounds bilaterally with rhonchi. No accessory muscle use or muscle retra ction. Heart: Irregular. No extra sounds. Abdomen: Soft, nontender. Bowel sounds positive. No organomegaly. No masses or hernia. No rigidi ty or rebound. Extremities: No clubbing or cyanosis. Intact pulses. Skin: No rash. No nodule. Neurologic: Alert, awake, oriented x3. No acute focal deficits appreciated. Lymph Nodes: No cervical or axillary lymphadenopathy. Investigations: Chest x-ray showed interstitial changes with central congestion, and his troponin veliz s peaked at 127, it is trending down. BUN 39, creatinine 2.98, and NT-proBNP is 27,307. Assessment And Recommendations: 1.Elevated troponin. No chest pain. This is probably demand. The patient will need ischemia shavon p. I recommend an outpatient exercise nuclear stress test and an echocardiogram. 2.Shortness of breath, probably in part due to congestive heart failure exacerbation. I recommend t o obtain an echocardiogram and continue home medications. We will adjust therapy according to the [facility] findings. 3.Chronic kidney disease. Recommend nephrology evaluation during this hospital stay and follow up a s an outpatient as well. /NEYDA Voice ID: [id number] Report ID: [id number]
--- NOTE | 2023-12-14 20:41 | PN ---
Date of Progress Note: 12/14/2023 Subjective: Seen by bedside, doing very well. No chest pain. No shortness of breath anymore. No n ausea, vomiting, diarrhea. All other systems reviewed are negative. Objective: Vital signs: Reviewed. Head and Neck: Pupils are equal, reactive to light. Intact eye movements. No JVD. No cervical lym phadenopathy. Neck is supple. Thyroid is not enlarged. Lungs: Clear to auscultation bilaterally. No rhonchi, wheezing, or crackles. No accessory muscle u se. Heart: Regular rate and rhythm. No extra sounds. Abdomen: Soft, nontender. Bowel sounds positive. No organomegaly. No masses or hernia. No rigidi ty or rebound. Extremities: No clubbing, cyanosis. Intact pulses. Skin: No rash or nodule. Neurologic: Alert, awake, oriented x3. No acute focal deficits appreciated. Investigations: BUN 35, creatinine 3.3. Troponin was 122. Assessment/recommendation: 1.Elevated troponin, likely due to demand ischemia. The patient will need ischemia workup. At this point avoid coronary angiogram due to worsening kidney function and plan for exercise nuclear stress test. Stress test is not available in the hospital. We will do it on an outpatient basis. I asked him to follow up with me early next week to arrange for it. 2.Congestive heart failure. EF is not known. Echo was not done yet. We will do it as an outpatien t and plan accordingly. 3.Acute on chronic renal failure. Recommend Nephrology evaluation, and at this point, he appears to be euvolemic. I will hold diuretics and monitor kidney function ld gauthier SR/MODL Voice ID: [id number] Report ID: [id number]
--- NOTE | 2023-12-15 02:07 | PN ---
Date of Progress Note: 12/14/2023 Subjective: Patient is admitted to the hospital with acute kidney injury secondary to cardiorenal sy ndrome and pneumonia. The patient was started on diuretic. The patient is feeling better. He denie s shortness of breath, chest pain, syncope. Physical Examination: Lungs: Clear to auscultation bilaterally. Heart: S1, S2. Abdomen: Soft. Extremities: Slight edema in both ankles. Impression And Plan: 1.Acute kidney injury on chronic kidney disease. The patient was treated with diuretic for cardiore nal syndrome. Continue low-sodium diet, p.o. fluid restriction. 2.Hyponatremia, dilutional. Continue diuretics. 3.Chronic kidney disease with acute kidney injury secondary to cardiorenal syndrome. Patient is on diuretic regimen. Avoid nonsteroidal anti-inflammatory medication. 4.Hypokalemia. Continue supplement. Patient may benefit from spironolactone. Continue to monitor electrolytes. Continue to check magnesium level. 5.Respiratory failure secondary to pneumonia and fluid overload. Continue to monitor fluid balance. Diuretics were adjusted to maintenance dose. CARLOS/NEYDA Voice ID: [id number] Report ID: [id number]
== END 2023-12-14 15:04 | disposition home or self-care (01) | DRG 291 ==
LOC: ER 08:29 → ERHOLD 11:42 → 4TH 12:41 → OBSVTOIN 12-13 12:36
PROVIDERS: ADMIT Hospitalist; ATTEND Hospitalist
DX: I13.0 Hypertensive heart and chronic kidney disease with heart failure and stage 1 through stage 4 chronic kidney disease, or unspecified chronic kidney disease (principal); I50.23 Acute on chronic systolic (congestive) heart failure; J96.01 Acute respiratory failure with hypoxia; J18.9 Pneumonia, unspecified organism; N17.9 Acute kidney failure, unspecified; E87.1 Hypo-osmolality and hyponatremia; N18.4 Chronic kidney disease, stage 4 (severe); I24.89 Other forms of acute ischemic heart disease; E11.22 Type 2 diabetes mellitus with diabetic chronic kidney disease; E11.40 Type 2 diabetes mellitus with diabetic neuropathy, unspecified; D63.1 Anemia in chronic kidney disease; D50.9 Iron deficiency anemia, unspecified; E87.6 Hypokalemia; K52.9 Noninfective gastroenteritis and colitis, unspecified; J34.89 Other specified disorders of nose and nasal sinuses; I25.10 Atherosclerotic heart disease of native coronary artery without angina pectoris; R79.89 Other specified abnormal findings of blood chemistry; Z95.5 Presence of coronary angioplasty implant and graft; Z11.52 Encounter for screening for COVID-19; Z90.49 Acquired absence of other specified parts of digestive tract; Z28.311 Partially vaccinated for COVID-19; Z79.82 Long term (current) use of aspirin; Z79.899 Other long term (current) drug therapy
CPT/HCPCS: 0240U; 36415; 71045; 74177; 80048; 80069; 80076; 81001; 82570; 82947; 83605; 83735; 83880; 83970; 84156; 84443; 84484; 85025; 85610; 87045; 87046; 87324; 93005; 94760; 94762; 96361; 96365; 96368; 96375; 99285; J0744; J1200; J1644; J1940; J7030; Q9967

== ENCOUNTER 2024-01-14 22:50 | Inpatient (IN) | payer OTHER ==
[2024-01-14] MEDS ORDERED: FAMOTIDINE 20 MG/2 ML VIAL IV ONE (23:45)
[2024-01-14] MEDS ORDERED: ONDANSETRON 4 MG/2 ML VIAL ONE (23:45)
[2024-01-15 00:33] LABS: Absolute Basophils 0.1 K/uL (0-0.5); Absolute Eosinophils 0.2 K/uL (0-0.5); Absolute Lymphocytes (CBC) 0.9 K/uL (0.7-4.9); Absolute Monocytes 0.5 K/uL (0.1-1.3); Absolute Neutrophil 5.7 K/uL (1.8-8.0); Basophils % 0.7 % (0-1.3); Eosinophils % 3.2 % (0-4.4); Hematocrit 25.7 % (39.6-49.0); Hemoglobin 8.5 g/dL (13.6-17.9); MCHC 33.1 g/dL (32.0-36.0); MCV 81.6 fL (80-100); MPV 8.3 fL (7.6-11.3); Monocytes % 6.5 % (3.3-12.3); Neutrophils % 77.6 % (41.7-73.7); Platelets 194 thou/uL (152-406); RBC Red Blood Cell Count 3.15 M/uL (4.33-5.43); Red Cell Distribution Width 17.2 % (12.1-15.2)
[2024-01-15 00:36] LABS: ALT/SGPT 16 U/L (16-61); Albumin 3.2 g/dL (3.4-5.0); Albumin/Globulin Ratio 0.8 (1.1-1.8); Alkaline Phosphatase 114 U/L (45-117); Anion Gap 12.6 mEq/L (5.0-15.0); BUN Blood Urea Nitrogen 61 mg/dL (7-18); Bicarbonate 17 mEq/L (21-32); Bilirubin Total 0.4 mg/dL (0.2-1.0); Globulin 3.8 g/dL (2.3-3.5); Glomerular Filtration Rate 18 ml/min (=/>90); Glucose Level 119 mg/dL (74-106); Lipase 52 U/L (13-75); Magnesium 2.1 mg/dL (1.6-2.4); Potassium 3.6 mEq/L (3.5-5.1); Sodium Level 138 mEq/L (136-145)
[2024-01-15 00:37] LABS: AST/SGOT < 10 U/L (15-37); Bilirubin Direct < 0.2 mg/dL (0-0.2); Bilirubin Indirect, Calculated 0.2 mg/dL (0.2-0.8)
[2024-01-15 00:38] LABS: Troponin High Sensitivity 134.2 pg/mL (<58.9)
[2024-01-15] MEDS ORDERED: ASPIRIN 81 MG CHEWABLE TABLET ONE ×2 (01:05→01:07)
[2024-01-15] MEDS ORDERED: FOLIC ACID 5 MG/ML VIAL ONE (01:06)
[2024-01-15] MEDS ORDERED: HEPARIN/D5W 25,000 UNIT/500 ML BAG IV ONE (01:40)
[2024-01-15] MEDS ORDERED: HEPARIN 5000 UNIT/ML 1 ML VIAL ONE (01:58)
--- NOTE | 2024-01-15 04:35 | EDPHYS ---
Physician Documentation [facility] Name: Sylvain Veronica Age: 73 yrs Sex: Male : 1950 Arrival Date: 01/14/2024 Time: 22:50 Bed 8 Private MD: Austen Mott T ED Physician Dashawn Rojas HPI: 01/13 23:20 This 73 yrs old Male presents to ER via Ambulatory with complaints of LEFT ARM cp TINGLING, Abdominal Pain. 23:20 The patient presents with abdominal pain in the epigastric area. Onset: The cp symptoms/episode began/occurred yesterday. The symptoms do not radiate. Associated signs and symptoms: Pertinent positives: constipation, tingling of left hand, Pertinent negatives: blood in stools, chest pain, dysuria, fever, headache, palpitations, shortness of breath, testicular pain, vomiting. The symptoms are described as constant. Severity of pain: in the emergency department the pain is unchanged despite home interventions. Historical: - Allergies: 23:04 No Known Allergies; km8 - Home Meds: 23:04 atorvastatin oral [Active]; Furosemide Oral [Active]; km8 - PMHx: 23:04 Congestive heart failure; Systolic; Diabetes - IDDM; Hypertensive disorder; kidney km8 disease; CKD 3; - PSHx: 23:04 Appendectomy; cardiac stents; Cholecystectomy; km8 - Immunization history:: Adult Immunizations up to date. - Infectious Disease History:: Denies. - Social history:: Smoking status: Patient denies any tobacco usage or history of. Patient/guardian denies using alcohol, street drugs. ROS: 23:30 Constitutional: Negative for body aches, chills, fever, poor PO intake, cp 23:30 Eyes: Negative for injury, pain, redness, and discharge, cp 23:30 ENT: Negative for drainage from ear(s), ear pain, sore throat, difficulty swallowing, difficulty handling secretions, 23:30 Cardiovascular: Negative for chest pain, edema, palpitations, 23:30 Respiratory: Negative for cough, shortness of breath, wheezing, 23:30 Abdomen/GI: Positive for abdominal pain, nausea, constipation, of the epigastric area, Negative for vomiting, diarrhea, dysphagia, 23:30 Back: Negative for pain at rest, pain with movement, radiated pain, 23:30 : Negative for urinary symptoms, testicular pain 23:30 Neuro: Positive for tingling, of the left hand, Negative for altered mental status, dizziness, headache, syncope, near syncope, 23:30 All other systems are negative, Exam: 23:33 Constitutional: The patient appears in no acute distress, alert, awake, cp non-diaphoretic, non-toxic, well developed, well nourished, 23:33 Head/Face: Normocephalic, atraumatic. cp 23:33 Eyes: Periorbital structures: appear normal, Conjunctiva: normal, no exudate, no injection, Sclera: no appreciated abnormality, Lids and lashes: appear normal, bilaterally, 23:33 ENT: External ear(s): are unremarkable, Nose: is normal, Mouth: Lips: moist, Oral mucosa: pink and intact, moist, Posterior pharynx: Airway: no evidence of obstruction, patent, 23:33 Neck: ROM/movement: is normal, is supple, without pain, no range of motions limitations, 23:33 Chest/axilla: Inspection: normal, Palpation: is normal, no crepitus, no tenderness, 23:33 Cardiovascular: Rate: tachycardic, Rhythm: regular, Edema: ankle edema, that is mild, JVD: is not appreciated, 23:33 Respiratory: the patient does not display signs of respiratory distress, Respirations: normal, no use of accessory muscles, no retractions, labored breathing, is not present, Breath sounds: are clear throughout, no decreased breath sounds, no stridor, no wheezing, 23:33 Abdomen/GI: Inspection: abdomen appears normal, Bowel sounds: active, all quadrants, Palpation: soft, in all quadrants, moderate abdominal tenderness, in the epigastric area, rebound tenderness, is not appreciated, involuntary guarding, is not appreciated, 23:33 Back: pain, is absent, ROM is normal, 23:33 Neuro: Motor: is normal, Sensation: is normal, 23:55 ECG was reviewed by the Attending Physician. cp 01/14 01:29 ECG was reviewed by the Attending Physician. cp Vital Signs: 01/13 23:01 BP 156 / 86; Pulse 100; Resp 20; Temp 99.1(O); Pulse Ox 99% on R/A; Weight 77.11 kg km8 (R); Height 5 ft. 10 in. (R); Pain 5/10; 01/14 01:00 BP 150 / 84; Pulse 97; Resp 25; Pulse Ox 100% ; jj7 02:08 BP 148 / 86; Pulse 95; Resp 23; Pulse Ox 96% ; jj7 02:30 BP 144 / 84; Pulse 89; Resp 16; Pulse Ox 97% on R/A; km8 03:00 BP 152 / 93; Pulse 91; Resp 16; Pulse Ox 97% on R/A; km8 03:30 BP 158 / 92; Pulse 95; Resp 16; Pulse Ox 99% on R/A; km8 04:00 BP 135 / 75; Pulse 90; Resp 16; Pulse Ox 99% on R/A; km8 04:30 BP 142 / 80; Pulse 96; Resp 16; Pulse Ox 98% on R/A; km8 05:00 BP 153 / 95; Pulse 100; Resp 16; Pulse Ox 98% on R/A; [facility] 01/13 23:01 Body Mass Index 24.39 (77.11 kg, 177.8 cm) [facility] 01/13 23:01 Pain Scale: Adult [facility] MDM: 01/13 23:15 Patient medically screened. cp 01/14 00:00 Differential diagnosis: AAA, bowel obstruction, cholecystitis, Cholelithiasis, cp diverticulitis, gastritis, gastroesophageal reflux disease, GI Bleed, sympomatic leaking abdominal aortic aneurysm, myocardia ischemia or infarction, non-specific abd pain, pancreatitis, Peptic Ulcer Disease, Perf. Duodenal Ulcer, Perf. Gastric Ulcer, Pyelonephritis, Ureterolithiasis, urinary tract infection. 01:35 Data reviewed: vital signs, nurses notes, lab test result(s), EKG, radiologic studies, cp CT scan, plain films, and as a result, I will admit patient. 01:35 Management of patient was discussed with the following: Hospitalist: Olegario Bermeo NP will cp admit after discussion. I considered the following discharge prescriptions or medication management in the emergency department Medications were administered in the Emergency Department. See MAR. Independent interpretation of the following test(s) in the Emergency Department EKG: See my EKG interpretation above X-Ray: My interpretation is chest xray negative for infiltrates. Care significantly affected by the following chronic conditions: Diabetes, Hypertension, Congestive Heart Failure, Chronic Kidney Disease. Counseling: I had a detailed discussion with the patient and/or guardian regarding the historical points, exam findings, and any diagnostic results supporting the discharge/admit diagnosis, the presence of at least one elevated blood pressure reading (>120/80) during this emergency department visit, lab results, radiology results, the need for further work-up and treatment in the hospital. Response to treatment: pain resolved. 01/13 23:38 Order name: Basic Metabolic Panel; Complete Time: 00:51 cp 01/14 00:51 Interpretation: Normal except: CL 112; CO2 17; GLUC 119; BUN 61; CRE 3.41; GFR 18; CA cp 7.6. 01/13 23:38 Order name: CBC with Diff; Complete Time: 00:51 cp 01/14 00:52 Interpretation: Normal except: RBC 3.15; HGB 8.5; HCT 25.7; RDW 17.2; NGHIA% 77.6; LYM% cp 12.0. 01/13 23:38 Order name: LFT's; Complete Time: 00:51 cp 01/14 00:52 Interpretation: Normal except: AST < 10; ALB 3.2; GLOB 3.8; A/G 0.8. cp 01/13 23:38 Order name: Magnesium; Complete Time: 00:51 cp 01/13 23:38 Order name: Troponin HS; Complete Time: 00:51 cp 01/14 00:52 Interpretation: Troponin HS 134.2; Reviewed. cp 01/13 23:38 Order name: Lipase; Complete Time: 00:51 cp 01/14 05:33 Order name: Ptt, Activated: at 0600 km8 01/14 06:38 Order name: Protime (+INR) EDMS 01/14 06:38 Order name: PTT, Activated Partial Thromb EDMS 01/14 06:39 Order name: Troponin High Sensitivity EDMS 01/14 06:39 Order name: NT PRO-BNP EDMS 01/14 06:39 Order name: Thyroid Stimulating Hormone EDMS 01/14 07:14 Order name: Type and Screen EDMS 01/14 07:30 Order name: ABO/RH no charge EDMS 01/14 13:32 Order name: Troponin High Sensitivity EDMS 01/14 13:32 Order name: NT PRO-BNP EDMS 01/14 13:54 Order name: Protime (+INR) [facility] 01/14 13:54 Order name: PTT, Activated Partial Thromb EDKY 01/13 23:18 Order name: CT Head Brain wo Cont 01/13 23:38 Order name: XRAY Chest (1 view) 01/13 23:56 Order name: Abdomen EDKY 01/13 23:38 Order name: Cardiac monitoring; Complete Time: 23:39 cp 01/13 23:38 Order name: EKG - Nurse/Tech; Complete Time: 23:51 cp 01/13 23:38 Order name: IV Saline Lock; Complete Time: 23:39 cp 01/13 23:38 Order name: Labs collected and sent; Complete Time: 23:39 cp 01/13 23:38 Order name: O2 Per Protocol; Complete Time: 23:39 cp 01/13 23:38 Order name: O2 Sat Monitoring; Complete Time: 23:39 cp 01/14 01:19 Order name: EKG - Nurse/Tech; Complete Time: 01:29 ty EC/20 23:55 Rate is 101 beats/min. Rhythm is regular. W[place] interval is normal. QRS interval is cp normal. QT interval is normal. T waves are Inverted in leads I, aVL. Interpreted by me. Reviewed by me. 01/14 01:29 Rate is 98 beats/min. Rhythm is regular. W[place] interval is normal. QRS interval is normal. cp QT interval is normal. T waves are Inverted in lead I. Interpreted by me. Reviewed by me. Administered Medications: 01/13 23:52 Drug: Ondansetron IVP 4 mg IVP once; over 2 minutes Route: IVP; Site: right antecubital;jj7 01/14 01:35 Follow up: Response: Marked relief of symptoms jj7 01/13 23:52 Drug: Famotidine IVP 20 mg IVP once; dilute with 10 mL 0.9% NaCl; give over 2 minutes jj7 Route: IVP; Site: right antecubital; 01/14 01:35 Follow up: Response: Marked relief of symptoms j7 01:10 Drug: Aspirin PO Chewable Tablet 324 mg PO once; 81 mg tablets x 4 Route: PO; j7 01:34 Follow up: Response: No adverse reaction j7 01:10 Drug: foLIC Acid IVPB 1 mg IVPB once Route: IVPB; Site: right antecubital; 8 01:20 Follow up: IV Status: Completed infusion 8 02:03 Drug: Heparin (AL Drip) 12 units/kg/[place] - ([place] [address] units, D5W IV 500 ml) IV at jj7 calculated rate Per protocol; Max initial rate 1000 units/hr {Co-Signature: km8 (Louise Petersen RN).} Route: IV; Rate: 900 units/hr; Site: right antecubital; 05:14 Follow up: IV Status: Infusion continued upon admission Disposition: 03:31 Co-signature as Attending Physician, Dashawn Rojas MD I agree with the assessment sp4 and plan of care. I reviewed the patient's care provided by Advanced Practice Provider \T\ agree w/ the diagnosis \T\ care plan. I personally saw the pt \T\ performed a substantive portion of the visit, incldng all aspects of the (History/Exam/Medical Decision Making). Disposition Summary: 01/15/24 01:33 Hospitalization Ordered Notes: Hospitalization Status: Inpatient Admission cp Provider: Delfina Nuñez cp Condition: Stable cp Problem: new cp Symptoms: have improved cp Bed/Room Type: Standard cp Location: Telemetry/MedSurg (Inpatient)(01/15/24 13:39) bd Room Assignment: [facility](01/15/24 13:39) bd Diagnosis - Epigastric pain cp - Paresthesia of skin cp - Abnormal electrocardiogram [ECG] [EKG] cp Forms: - Medication Reconciliation Form cp - SBAR form cp - Leadership Thank You Letter cp Signatures: Dispatcher [employer] EDKY La Taylor bd Leonel Craig PA PA cp Harvey Fan RN RN jj7 Dashawn Rojas MD MD sp4 Louise Petersen, CHUCK RN km8 Patricio Mike ty Louise Petersen RN km8 Corrections: (The following items were deleted from the chart) 01/13 23:39 23:39 Chest Single View+RAD.RAD[facility]BRZ [facility] 23[facility] 23:39 Abdomen Pelvis W Con+CT.RAD.BRZ ordered. [facility] 01/14 01:56 01:33 Telemetry/MedSurg (Inpatient) cp ty 01:56 01:33 cp ty 13:39 01:56 [facility] ER HOLD ty bd :39 01:56 ERHOLD- ty bd 15:01/13 23:30 Abdomen/GI: Positive for abdominal pain, of the epigastric area, Negative cp for vomiting, diarrhea, constipation, anorexia, cp 01/14 15:20 01/13 23:30 : Negative for urinary symptoms, testicular pain cp cp
--- NOTE | 2024-01-15 04:35 | ER ---
Nurse's Notes [facility] Name: Sylvain Veronica Age: 73 yrs Sex: Male : 1950 Arrival Date: 01/14/2024 Time: 22:50 Bed 8 Private MD: Austen Mott T Diagnosis: Epigastric pain;Paresthesia of skin;Abnormal electrocardiogram [ECG] [EKG] Presentation: 01/13 23:01 Chief complaint: Patient states: epigastric pain starting yesterday, "I feel km8 constipated"; pt also reports left hand tingling for a "couple of days". Coronavirus screen: Client denies travel out of the [place] in the last 14 days. Ebola Screen: No symptoms or risks identified at this time. Initial Sepsis Screen: Does the patient meet any 2 criteria? HR > 90 bpm. No. Patient's initial sepsis screen is negative. Does the patient have a suspected source of infection? No. Patient's initial sepsis screen is negative. Risk Assessment: Do you want to hurt yourself or someone else? Patient reports no desire to harm self or others. Onset of symptoms was January 13, 2024. 23:01 Method Of Arrival: Ambulatory km8 23:01 Acuity: JACKIE 3 km8 Triage Assessment: 23:04 General: Appears in no apparent distress. comfortable, Behavior is calm, cooperative, km8 appropriate for age. Pain: Complains of pain in epigastric area Pain does not radiate. Pain currently is 5 out of 10 on a pain scale. Quality of pain is described as aching, Pain began 1 day ago. Is intermittent. EENT: No signs and/or symptoms were reported regarding the EENT system. Neuro: Level of Consciousness is awake, alert, obeys commands, Oriented to person, place, time, situation, Reports paresthesias in left hand since "couple of days". Cardiovascular: Denies chest pain, shortness of breath, Patient's skin is warm and dry. Respiratory: Airway is patent Respiratory effort is even, unlabored, Respiratory pattern is regular, symmetrical. GI: Abdomen is non-distended, Reports upper abdominal pain, constipation, nausea. : No signs and/or symptoms were reported regarding the genitourinary system. Derm: No signs and/or symptoms reported regarding the dermatologic system. Skin is intact, is healthy with good turgor, Skin is dry, Skin is pink, warm \\T\\ dry. normal, Skin temperature is warm. Musculoskeletal: Range of motion: intact in all extremities. Historical: - Allergies: 23:04 No Known Allergies; km8 - Home Meds: 23:04 atorvastatin oral [Active]; Furosemide Oral [Active]; km8 - PMHx: 23:04 Congestive heart failure; Systolic; Diabetes - IDDM; Hypertensive disorder; kidney km8 disease; CKD 3; - PSHx: 23:04 Appendectomy; cardiac stents; Cholecystectomy; km8 - Immunization history:: Adult Immunizations up to date. - Infectious Disease History:: Denies. - Social history:: Smoking status: Patient denies any tobacco usage or history of. Patient/guardian denies using alcohol, street drugs. Screenin:31 [facility] ED Fall Risk Assessment (Adult) History of falling in the last 3 months, jj7 including since admission No falls in past 3 months (0 pts) Confusion or Disorientation No (0 pts) Intoxicated or Sedated No (0 pts) Impaired Gait No (0 pts) Mobility Assist Device Used No (0 pt) Altered Elimination No (0 pt) Score/Fall Risk Level 0 - 2 = Low Risk Oriented to surroundings, Maintained a safe environment, Educated pt \\T\\ family on fall prevention, incl call for assistance when getting out of bed. Abuse screen: Denies threats or abuse. Nutritional screening: No deficits noted. Tuberculosis screening: No symptoms or risk factors identified. Assessment: 23:31 General: Appears in no apparent distress. comfortable, Behavior is calm, cooperative, jj7 appropriate for age. Pain: Complains of pain in epigastric area. GI: Abdomen is flat, non-distended, Abd is soft and non tender X 4 quads. 01/14 00:48 Reassessment: Patient appears in no apparent distress at this time. No changes from [facility] previously documented assessment. Patient and/or family updated on plan of care and expected duration. Pain level reassessed. Patient is alert, oriented x 3, equal unlabored respirations, skin warm/dry/pink. 01:30 Reassessment: Patient appears in no apparent distress at this time. Patient and/or [facility] family updated on plan of care and expected duration. Pain level reassessed. Patient is alert, oriented x 3, equal unlabored respirations, skin warm/dry/pink. Patient denies pain at this time. Patient states feeling better. 02:40 Reassessment: Patient appears in no apparent distress at this time. No changes from [facility] previously documented assessment. Patient and/or family updated on plan of care and expected duration. Pain level reassessed. Patient is alert, oriented x 3, equal unlabored respirations, skin warm/dry/pink. 04:00 Reassessment: Patient appears in no apparent distress at this time. No changes from km8 previously documented assessment. Patient and/or family updated on plan of care and expected duration. Pain level reassessed. Patient is alert, oriented x 3, equal unlabored respirations, skin warm/dry/pink. 05:00 Reassessment: Patient appears in no apparent distress at this time. No changes from 8 previously documented assessment. Patient and/or family updated on plan of care and expected duration. Pain level reassessed. Patient is alert, oriented x 3, equal unlabored respirations, skin warm/dry/pink. 13:48 Reassessment: REPORT FAXED TO 205. bp Vital Signs: 01/13 23:01 BP 156 / 86; Pulse 100; Resp 20; Temp 99.1(O); Pulse Ox 99% on R/A; Weight 77.11 kg km8 (R); Height 5 ft. 10 in. (R); Pain 01/03; 01/14 01:00 BP 150 / 84; Pulse 97; Resp 25; Pulse Ox 100% ; j7 02:08 BP 148 / 86; Pulse 95; Resp 23; Pulse Ox 96% ; j7 02:30 BP 144 / 84; Pulse 89; Resp 16; Pulse Ox 97% on R/A; km8 03:00 BP 152 / 93; Pulse 91; Resp 16; Pulse Ox 97% on R/A; km8 03:30 BP 158 / 92; Pulse 95; Resp 16; Pulse Ox 99% on R/A; km8 04:00 BP 135 / 75; Pulse 90; Resp 16; Pulse Ox 99% on R/A; km8 04:30 BP 142 / 80; Pulse 96; Resp 16; Pulse Ox 98% on R/A; km8 05:00 BP 153 / 95; Pulse 100; Resp 16; Pulse Ox 98% on R/A; km8 01/13 23:01 Body Mass Index 24.39 (77.11 kg, 177.8 cm) [facility] 01/13 23:01 Pain Scale: Adult [facility] ED Course: 01/13 22:54 Patient arrived in ED. gm2 22:54 [facility] cp 22:54 Dashawn Rojas MD is Attending Physician. cp 22:55 Austen Mott MD is Private Physician. gm2 23:04 Triage completed. km8 23:06 Arm band placed on right wrist. km8 23:31 Patient has correct armband on for positive identification. Placed in gown. Bed in low jj7 position. Call light in reach. Provided Education on: USE OF CALL SANTORO. Client placed on continuous cardiac and pulse oximetry monitoring. NIBP monitoring applied. cafeteria monitor on. Pulse ox on. 23:31 Inserted saline lock: 20 gauge in right antecubital area, using aseptic technique. jj7 Blood collected. 23:51 Basic Metabolic Panel Sent. ty 23:51 CBC with Diff Sent. ty 23:51 LFT's Sent. ty 23:51 Magnesium Sent. ty 23:51 Troponin HS Sent. ty 23:51 Lipase Sent. ty 23:52 Initial lab(s) drawn, by me, sent to lab. EKG done, by ED staff, reviewed by Leonel UNDERWOOD. 23:56 Abdomen In Process Unspecified. EDMS 23:57 XRAY Chest (1 view) In Process Unspecified. EDMS 23:58 CT Head Brain wo Cont In Process Unspecified. EDMS 01/14 01:32 Delfina Nuñez MD is Hospitalizing Provider. cp 05:10 No provider procedures requiring assistance completed. Patient admitted, IV remains in [facility] place. 12:44 Chandan Medley, RN is Primary Nurse. bp Administered Medications: 01/13 23:52 Drug: Ondansetron IVP 4 mg IVP once; over 2 minutes Route: IVP; Site: right antecubital;j7 01/14 01:35 Follow up: Response: Marked relief of symptoms j7 01/13 23:52 Drug: Famotidine IVP 20 mg IVP once; dilute with 10 mL 0.9% NaCl; give over 2 minutes j7 Route: IVP; Site: right antecubital; 01/14 01:35 Follow up: Response: Marked relief of symptoms 01:10 Drug: Aspirin PO Chewable Tablet 324 mg PO once; 81 mg tablets x 4 Route: PO; 01:34 Follow up: Response: No adverse reaction 01:10 Drug: foLIC Acid IVPB 1 mg IVPB once Route: IVPB; Site: right antecubital; 01:20 Follow up: IV Status: Completed infusion 02:03 Drug: Heparin (VA Drip) 12 units/kg/[place] - ([place] [address] units, D5W IV 500 ml) IV at [facility] calculated rate Per protocol; Max initial rate 1000 units/hr {Co-Signature: jory (Louise Petersen RN).} Route: IV; Rate: 900 units/hr; Site: right antecubital; 05:14 Follow up: IV Status: Infusion continued upon admission Medication: 01/13 23:31 VIS not applicable for this client. Outcome: 01/14 01:33 Decision to Hospitalize by Provider. cp 05:10 Admitted to ER Hold. Please see [facility] for further documentation. 05:10 Condition: stable 05:10 Instructed on the need for admit, Demonstrated understanding of instructions, 14:38 Patient left the ED. bp Signatures: Dispatcher [employer] EDMS Leonel Craig PA PA cp Peltier, Brian RN RN Harvey Newman RN RN jjFranci Cameron [facility] Louise Petersen RN RN km8 Patricio Mike Katie RN km8
--- NOTE | 2024-01-15 05:03 | P.HP ---
Certification for Inpatient Patient admitted to: Observation <Katie Bermeo - Last Filed: 01/15/24 06:19> Patient History Date of Service: 01/15/24 Reason for admission: Chest pain History of Present Illness: 73-year-old male with a past medical history of pleural effusion, secondary to heart failure, chronic kidney disease stage III secondary to hypertension, diabetes, hyperlipidemia presents to the emergency room with chest pain, shortness of breath, he reports symptoms worse over the last day, no reported nausea vomiting diarrhea, fever, cough edema. Recent admission December 11 for similar symptoms, renal failure, elevated troponin, elevated BNP (27,000), with pleural effusion., plan to admit for chest pain rule out AR, elevated troponin. With cardiology to consult, on telemetry, creatinine 3.41 BUN 61, GFR 18, nephrology to consult, troponin elevated at 134 placed on heparin drip., microcytic anemia 8.5 2 5.7, - Past Medical/Surgical History Has patient received pneumonia vaccine in the past: Yes Diabetic: Yes -: Diabetes mellitus type 2insulin-dependent -: Hypertension -: Chronic systolic CHF with EF=40% -: CAD -: CKD III -: Cholecystectomy -: Cardiac catheterization: 2 stents -: appy Psychosocial/ Personal History: Patient is . Lives at home. - Family History Father -: Diabetes Mother -: Diabetes - Social History Smoking Status: Never smoker Alcohol use: Yes CD- Drugs: No Caffeine use: Yes Place of Residence: Home <ElvieKatie - Last Filed: 01/15/24 06:19> Date of Service: 01/15/24 <Delfina Nuñez - Last Filed: 01/15/24 16:05> Allergies No Known Allergies Allergy (Verified 12/12/23 13:49) Home Medications: Aspirin [Aspirin EC] 81 mg PO DAILY #30 tab 11/13/23 Atorvastatin Calcium [Lipitor] 40 mg PO BEDTIME #30 tab 11/13/23 Furosemide 40 mg PO BID 30 Days #60 tab 11/13/23 Metoprolol Tartrate [Lopressor*] 25 mg PO BID 6AM 6PM #60 tab 11/13/23 Sacubitril/Valsartan [Entresto 24 mg-26 mg Tablet] 1 tab PO BID 12/12/23 Benzonatate [Tessalon Perle*] 100 mg PO TID PRN #30 cap 12/14/23 Ciprofloxacin HCl [Cipro 250 MG Tablet*] 250 mg PO BID #14 tab 12/14/23 metroNIDAZOLE [Flagyl] 250 mg PO Q8H #20 tab 12/14/23 Review of Systems Per HPI <Katie Bermeo - Last Filed: 01/15/24 06:19> Physical Examination - Physical Exam General: Alert, In no apparent distress, Oriented x3 HEENT: Atraumatic, Normocephalic Neck: Supple, 2+ carotid pulse no bruit Respiratory: Normal air movement, Diminished Cardiovascular: Normal pulses, Regular rate/rhythm Capillary refill: <2 Seconds Gastrointestinal: Normal bowel sounds, Soft and benign Musculoskeletal: No clubbing, No swelling Neurological: Normal speech, Normal strength at 5/5 x4 extr - Studies Laboratory Data (last 24 hrs) 01/14/24 01/14/24 23:44 23:44 WBC 7.40 Hgb 8.5 L Hct 25.7 L Plt Count 194 Sodium 138 Potassium 3.6 BUN 61 H Creatinine 3.41 H Glucose 119 H Magnesium 2.1 Total Bilirubin 0.4 AST < 10 L ALT 16 Alkaline Phosphatase 114 Lipase 52 <Katie Bermeo - Last Filed: 01/15/24 06:19> - Studies Laboratory Data (last 24 hrs) 01/14/24 01/14/24 23:44 23:44 WBC 7.40 Hgb 8.5 L Hct 25.7 L Plt Count 194 Sodium 138 Potassium 3.6 BUN 61 H Creatinine 3.41 H Glucose 119 H Magnesium 2.1 Total Bilirubin 0.4 AST < 10 L ALT 16 Alkaline Phosphatase 114 Lipase 52 <Delfina Nuñez - Last Filed: 01/15/24 16:05> Assessment and Plan - Plan Assessment and Plan Chest pain rule out AR likely type II NSTEMI likely secondary to renal failure/CHF Acute on chronic systolic heart failure Admit to obs. Heparin drip, INR, APTT, PTT per heparin protocol troponin 134.2 Consult cardiology, telemetry, heparin drip per protocol for AR Troponins every 8 x 3, BNP in the a.m., lipid panel in the a.m., Electrolyte protocol trend electrolytes replace as needed Medications nitroglycerin acute 5 minutes x 3 for as needed chest pain, Lipitor 40 mg p.o. at bedtime, aspirin 325 p.o. daily, morphine sulfate sulfate 4 mg IV every 4 hours as needed chest pain, Zofran 4 mg IV every 4 hours as needed nausea, Lopressor 6 mg IV every 6 hours as needed systolic greater than 160, Lasix 40 mg IV x 1, Echo with 2D Doppler if not recently done, Daily weight, Acute renal failure-CKD D stage III acute kidney injury unknown baseline, Consult nephrology in the a.m. for acute renal failure Avoid nephrotoxic medication Reconcile home meds, please add pharmacy History of hypertension unknown control Resume appropriate home meds, As needed antihypertensives Full code Diet n.p.o. DVT heparin drip drip Disposition Home independent prior Discharge Plan: Home - Advance Directives Does patient have a Living Will: No Does patient have a Durable POA for Healthcare: No - Code Status/Comfort Care Code Status: Full Code Critical Care: No Time Spent Managing Pts Care (In Minutes): 55 <Katie Bermeo - Last Filed: 01/15/24 06:19> - Plan Pt seen and examined. I agree with the note by the TDP DISPLAYS ANALYST. Pt is a 73yo male with past medical history of pleural effusion, CKD stage 3, CHF, hypertension, diabetes, and hyperlipidemia who presents with chest pain and shortness of breath that started yesterday. The chest discomfort is substenal, non-radiating and constant in nature with severit of 8/10. On admission,lab studies show creatinine 3.41 BUN 61, GFR 18, troponin elevated at 134. At bedside, pt is in NAD. A/P: NSTEMI: Will continue heparin drip. Consulted cardiology. Pt is NPO for cardiac cath. SANTOS: Cr is 3.41. Will avoid nephrotoxins and monitor renal function. Htn: continue home med DVT ppxheparin Dispo: Pending hospital course. <Delfina Nuñez - Last Filed: 01/15/24 16:05>
[2024-01-15 05:15] VITALS: BMI 24.3
[2024-01-15] MEDS: FUROSEMIDE 40 MG/4 ML VIAL IV ONE (06:00)
[2024-01-15] MEDS ORDERED: FUROSEMIDE 40 MG/4 ML VIAL ONE (06:04)
[2024-01-15 06:16] LABS: PT Prothrombin Time 12.8 SECONDS (9.5-12.5); PTT, Activated Partial Thromb 53.1 SECONDS (24.3-36.9); Protime INR 1.17
[2024-01-15 06:34] LABS: Thyroid Stimulating Hormone 0.379 uIU/mL (0.358-3.740)
[2024-01-15 06:39] LABS: Troponin High Sensitivity 139.2 pg/mL (<58.9)
[2024-01-15] MEDS ORDERED: ONDANSETRON 4 MG/2 ML VIAL IV PRN (08:58)
[2024-01-15] MEDS ORDERED: MORPHINE 2 MG/ML SYR IV PRN (08:58)
--- NOTE | 2024-01-15 10:36 | P.PN ---
Subjective Date of Service: 01/15/24 Chief Complaint: Chest pain Subjective: No new changes <hPoebe Dolan - Last Filed: 01/15/24 10:36> Date of Service: 01/15/24 <Delfina Nuñez - Last Filed: 01/15/24 16:05> Review of Systems 10-point ROS is otherwise unremarkable General: As per HPI Respiratory: As per HPI Cardiovascular: As per HPI Gastrointestinal: As per HPI <Phoebe Dolan - Last Filed: 01/15/24 10:36> Physical Examination - Vital Signs Blood Pressure: 172/95 Pulse: 97 Respirations: 18 Pulse Ox (%): 97 - Physical Exam General: Alert, In no apparent distress, Oriented x3 HEENT: Atraumatic, Normocephalic Neck: Supple Respiratory: Normal air movement Cardiovascular: Normal pulses Capillary refill: <2 Seconds Gastrointestinal: Soft and benign Musculoskeletal: No clubbing Integumentary: Other (pallor) Neurological: Normal speech, Normal tone, Normal affect Lymphatics: No axilla or inguinal lymphadenopathy External genitalia: Deferred Rectal: Deferred - Studies Laboratory Data (last 24 hrs) 01/14/24 01/14/24 23:44 23:44 WBC 7.40 Hgb 8.5 L Hct 25.7 L Plt Count 194 Sodium 138 Potassium 3.6 BUN 61 H Creatinine 3.41 H Glucose 119 H Magnesium 2.1 Total Bilirubin 0.4 AST < 10 L ALT 16 Alkaline Phosphatase 114 Lipase 52 <Phoebe Dolan - Last Filed: 01/15/24 10:36> - Studies Laboratory Data (last 24 hrs) 01/14/24 01/14/24 23:44 23:44 WBC 7.40 Hgb 8.5 L Hct 25.7 L Plt Count 194 Sodium 138 Potassium 3.6 BUN 61 H Creatinine 3.41 H Glucose 119 H Magnesium 2.1 Total Bilirubin 0.4 AST < 10 L ALT 16 Alkaline Phosphatase 114 Lipase 52 <Delfina Nuñez - Last Filed: 01/15/24 16:05> Assessment And Plan - Plan 73-year-old male with a past medical history of pleural effusion, secondary to heart failure, chronic kidney disease stage III secondary to hypertension, diabetes, hyperlipidemia presents to the emergency room with chest pain, shortness of breath, he reports symptoms worse over the last day, no reported nausea vomiting diarrhea, fever, cough edema. Recent admission December 12, 2023 for similar symptoms, renal failure, elevated troponin, elevated BNP (27,000), with pleural effusion., plan to admit for chest pain rule out [place], elevated troponin. With cardiology to consult, on telemetry, creatinine 3.41 BUN 61, GFR 18, nephrology to consult, troponin elevated at 134 placed on heparin drip., microcytic anemia 8.5 2 5.7, Assessment and Plan Chest pain rule out AK likely type II NSTEMI likely secondary to renal failure/CHF Acute on chronic systolic heart failure Admit to obs. Heparin drip, INR, APTT, PTT per heparin protocol troponin 134.2 Consult cardiology, telemetry, heparin drip per protocol for AK Troponins every 8 x 3, BNP in the a.m. (troponins elevated every time for the past 10 + draws), lipid panel in the a.m., Electrolyte protocol trend electrolytes replace as needed Medications nitroglycerin q 5 minutes x 3 for as needed chest pain, Lipitor 40 mg p.o. at bedtime, aspirin 325 p.o. daily, morphine sulfate sulfate 4 mg IV every 4 hours as needed chest pain, Zofran 4 mg IV every 4 hours as needed nausea, Lopressor 5 mg IV every 6 hours as needed systolic greater than 160, Lasix 40 mg IV x 1, Echo with 2D Doppler if not recently done, Daily weight, Acute renal failure-CKD D stage III acute kidney injury unknown baseline, Consult nephrology in the a.m. for acute renal failure Avoid nephrotoxic medication Reconcile home meds, please add pharmacy History of hypertension unknown control Resume appropriate home meds, As needed antihypertensives <Phoebe Dolan - Last Filed: 01/15/24 10:36> - Plan Pt seen and examined. I agree with the note by the [employer] RADIO PRESENTER. Pt is a 73yo male with past medical history of pleural effusion, CKD stage 3, CHF, hypertension, diabetes, and hyperlipidemia who presents with chest pain and shortness of breath that started yesterday. The chest discomfort is substenal, non-radiating and constant in nature with severit of 8/10. On admission,lab studies show creatinine 3.41 BUN 61, GFR 18, troponin elevated at 134. At bedside, pt is in NAD. A/P: NSTEMI: Will continue heparin drip. Consulted cardiology. Pt is NPO for cardiac cath. SANTOS: Cr is 3.41. Will avoid nephrotoxins and monitor renal function. Htn: continue home med DVT ppxheparin Dispo: Pending hospital course. <Delfina Nuñez - Last Filed: 01/15/24 16:05>
--- NOTE | 2024-01-15 11:40 | RAD REPORT ---
EXAM DESCRIPTION: CT - Head Brain Wo Cont - 01/15/2024 6:40 am CLINICAL HISTORY: 73 years Male left forearm tingling times 2 days TECHNIQUE: Contiguous axial CT images obtained through the brain without IV contrast. This CT exam was performed according to our departmental dose-optimization program, which includes on e or more of the following dose reduction techniques: automated exposure control, adjustment of the m A and/or kV according to patient size, and/or use of iterative reconstruction technique. COMPARISON: No prior exams provided for comparison. FINDINGS: There is no intracranial hemorrhage, extraaxial collection, or evidence of acute transcort ical infarction. Scattered foci of low attenuation within the periventricular and subcortical white matter are most co mpatible with chronic microvascular disease. The ventricles and sulci are symmetric without midline s hift or mass effect. Vascular calcifications are noted. No lesion of the skull base or calvarium is identified. Pronounced mucosal thickening in the right maxillary sinus. The remainder of the paranasal sinuses and mastoid air cells are clear. IMPRESSION: Mild chronic microvascular changes without acute intracranial finding. Right maxillary sinusitis. Electronically signed by: Piedad Uribe MD 01/15/2024 12:26 AM CDT Due to temporary technical issues with the PACS/Fluency reporting system, reports are being signed by the in house radiologists without review as a courtesy to insure prompt reporting. The interpreting radiologist is fully responsible for the content of the report.
--- NOTE | 2024-01-15 11:45 | RAD REPORT ---
EXAM DESCRIPTION: RAD - Chest Single View - 01/14/2024 11:55 pm CLINICAL HISTORY: 73 years Male epigastric pain TECHNIQUE: One view of the chest is compared to the prior dated 06/21/2023. FINDINGS: There is moderate diffuse pulmonary edema with mild prominence of the cardiomediastinal si lhouette and a small right pleural effusion. No pneumothorax. No acute osseous lesion. IMPRESSION: Moderate CHF. Electronically signed by: Piedad Uribe MD 01/15/2024 12:13 AM CDT Due to temporary technical issues with the PACS/Fluency reporting system, reports are being signed by the in house radiologists without review as a courtesy to insure prompt reporting. The interpreting radiologist is fully responsible for the content of the report.
[2024-01-15] MEDS: NIFEDIPINE XL 30 MG TABLET PO SCH (11:55)
--- NOTE | 2024-01-15 12:18 | RAD REPORT ---
EXAM DESCRIPTION: CT - Abdomen Pelvis Wo Contrast - 01/15/2024 6:40 am CLINICAL HISTORY: 73 years Male EPIGASTRIC PAIN TECHNIQUE: Contiguous axial images obtained through the abdomen and pelvis without intravenous contr ast administration. Coronal and sagittal reformatted images provided. This CT exam was performed according to our departmental dose-optimization program, which includes on e or more of the following dose reduction techniques: automated exposure control, adjustment of the m A and/or kV according to patient size, and/or use of iterative reconstruction technique. COMPARISON: 12/12/2023 FINDINGS: Bibasilar pulmonary edema with a small right pleural effusion. Mild cardiomegaly. Prior cholecystectomy without biliary dilatation. The unenhanced liver, pancreas, spleen, adrenal glands, kidneys, urinary bladder, and osseous structu res are normal. There is no bowel inflammation, obstruction, free intraperitoneal air, or ascites. Prior appendectomy . Mild atherosclerosis without abdominal aortic aneurysm or retroperitoneal hemorrhage. Mild chronic degenerative changes in the spine. Small bilateral fat-containing inguinal hernias. IMPRESSION: Bibasilar pulmonary edema with a small right pleural effusion. Mild cardiomegaly. No acute findings in the abdomen or pelvis. Electronically signed by: Piedad Uribe MD 01/15/2024 12:22 AM CDT Due to temporary technical issues with the PACS/Fluency reporting system, reports are being signed by the in house radiologists without review as a courtesy to insure prompt reporting. The interpreting radiologist is fully responsible for the content of the report.
[2024-01-15 13:30] LABS: PT Prothrombin Time 12.7 SECONDS (9.5-12.5); PTT, Activated Partial Thromb 43.6 SECONDS (24.3-36.9); Protime INR 1.16
[2024-01-15 13:31] LABS: Troponin High Sensitivity 126.2 pg/mL (<58.9)
[2024-01-15] MEDS ORDERED: MORPHINE 4 MG/ML SYR IV PRN (13:46)
--- NOTE | 2024-01-15 16:39 | CON ---
Date of Consultation: 01/15/2024 Reason For Consultation: Chronic kidney disease and fluid management. 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 Baseline creatinine was 3.3. CHF with pleural effusion on diuretic at home, hypertension. The patient presented with epigastric and chest pain. It started 1 day duratio n and noted to have an elevated LFTs. The patient stated that pain started 1 day duration, nonradiat ing. He recently saw his cobol programmer, Dr. Smith. He denies palpitation. Labs were significant for creatinine 3.4, BUN 61, troponin 134, hemoglobin 8.5. Past Medical History: Diabetic chronic kidney disease, hypertension, congestive heart failure. Past Surgical History: Cholecystectomy, cardiac catheterization, status post PCI. Family History: Father and mother have diabetes mellitus. Social History: Denies tobacco or recreational drug abuse. Review of Systems: General: Denies fever or chills. HEENT: Denies headache or blurred vision. Respiratory: Denies shortness of breath or cough. Cardiovascular: Has chest pain. Denied palpitation. GI: Denies nausea, vomiting, diarrhea, or constipation. : Denies dysuria, hematuria, increase in frequency or urgency. Vital Signs: Pulse rate 97, respiratory rate 18, blood pressure 172/95. Physical Examination: General: Awake and alert, not in distress. Neck: Supple. No elevated JVD. Heart: Regular rate and rhythm. Normal S1, S2. Chest: Clear to auscultation bilaterally. No rales or wheezes. Abdomen: Soft, nontender. Extremities: Trace edema. Laboratory Data: White count 7.5, hemoglobin 8.5, platelet 194. Sodium 138, bicarb of 17, BUN 61, c reatinine 3.4. Troponin 134. BNP 87841. TSH is 0.3. Imaging Studies: Chest x-ray showing diffuse pulmonary edema with mild bilateral pleural effusion. Assessment And Plan: 1.Diabetic chronic kidney disease, stage 4. Creatinine currently stable. Continue diuretic. Can r esume Entresto. Renal diet. Renal dose medication. 2.Anemia of chronic disease. The recent workup showed low iron stores with iron saturation of 7 jered k on December 31. We will start the patient on IV iron. We will consider to give Epogen once the blood pressure is better controlled. The patient will need a GI workup as an outpatient. 3.NSTEMI, started on heparin. Monitor cardiac enzymes. Cardiology consulted. Can resume Entresto. 4.Heart failure with reduced ejection fraction. Continue diuretic. Candidate for SGLT2. 5.Hypertension. Blood pressure is elevated. We will start the patient on nifedipine. Thank you for allowing me to participate in patient care. Total time spent 75 minutes including docu mentation, reviewing labs, and discussing with the patient and the medical staff. MICHELLE Voice ID: [id number] Report ID: [id number]
[2024-01-15 20:01] LABS: Phosphorus 4.4 mg/dL (2.5-4.9)
[2024-01-15] MEDS: ATORVASTATIN 40 MG TAB PO SCH (20:56)
--- NOTE | 2024-01-15 21:09 | CON ---
Date of Consultation: 01/15/2024 Reason For Consultation: Chest pain. History Of Present Illness: A 73-year-old male, history of chronic kidney disease, coronary artery d isease, congestive heart failure, hypertension, diabetes, dyslipidemia, presented with chest pain, le ft-sided numbness early related to activities with shortness of breath, worse over the past 2 days. No nausea, vomiting, diarrhea, or diaphoresis. Evaluated in the emergency room and he had above bord sree elevated troponin, but he has chronic kidney disease with creatinine around 3. The patient wa s seen recently with the same problem and plan for doing stress test as an outpatient, but he never m sharon it to that. Past Medical History: As outlined above in the HPI. Medications: Refer reconciliation sheet for detailed list. Allergies: NO KNOWN DRUG ALLERGIES. Family History: No premature coronary artery disease or cancer. Social History: Does not smoke or drink. Does not use any drugs. Review of Systems: All systems reviewed, they are negative except mentioned in HPI. Physical Examination: Vital Signs: Reviewed. Head and Neck: Pupils are equal, reactive to light. Intact eye movements. No JVD. No cervical lym phadenopathy. Neck is supple. Thyroid is not enlarged. Lungs: Clear to auscultation bilaterally. No rhonchi, wheezing, or crackles. No accessory muscle u se. Heart: Irregular. No extra sounds. Abdomen: Soft, nontender. Bowel sounds positive. No organomegaly. No masses or hernia. No rigidi ty or rebound. Extremities: No edema, clubbing, cyanosis. Intact pulses. Skin: No rash or nodule. Neurologic: Alert, awake, oriented x3. No acute focal deficits appreciated. Investigations: BUN 61, creatinine 3.4, troponin 134 and down to 126, and NT-proBNP is 15,633. Assessment/recommendation: 1.Chest pain with an elevated troponin. Definitely, ischemic workup is recommended. Recommend to d o a Lexiscan nuclear stress test and an echocardiogram and in the interim, continue heparin. Baby as pirin. 2.Dyslipidemia. Continue statin. 3.Systolic heart failure. Ejection fraction is on the low side. He needs ischemia evaluation. Luc n as above. 4.Chronic kidney disease. Recommend Nephrology evaluation. SR/MODL Voice ID: [id number] Report ID: [id number]
[2024-01-16 03:53] LABS: Absolute Eosinophils 0.3 K/uL (0-0.5); Absolute Monocytes 0.5 K/uL (0.1-1.3); Absolute Neutrophil 3.8 K/uL (1.8-8.0); Basophils % 0.8 % (0-1.3); Hematocrit 24.9 % (39.6-49.0); Hemoglobin 8.3 g/dL (13.6-17.9); Lymphocytes % 17.4 % (15.3-44.8); MCH 27.3 pg (27.0-35.0); MCHC 33.4 g/dL (32.0-36.0); MCV 81.7 fL (80-100); MPV 8.3 fL (7.6-11.3); Monocytes % 8.5 % (3.3-12.3); Neutrophils % 68.3 % (41.7-73.7); Platelets 207 thou/uL (152-406); RBC Red Blood Cell Count 3.05 M/uL (4.33-5.43); Red Cell Distribution Width 17.3 % (12.1-15.2)
[2024-01-16 04:02] LABS: Anion Gap 10.7 mEq/L (5.0-15.0); Potassium 3.7 mEq/L (3.5-5.1)
[2024-01-16] MEDS: POTASSIUM CL SA 10 MEQ TAB PO ONE (08:52)
[2024-01-16] MEDS: ASPIRIN 325 MG TAB PO SCH (08:53)
--- NOTE | 2024-01-16 08:57 | P.PN ---
Subjective Date of Service: 01/16/24 Chief Complaint: Chest pain Subjective: No C/O voiced (in mid stress test. Denies SOB, chest pain) <Phoebe Dolan - Last Filed: 01/16/24 08:52> Date of Service: 01/16/24 <Delfina Nuñez Wilton - Last Filed: 01/16/24 11:08> Review of Systems 10-point ROS is otherwise unremarkable General: As per HPI Respiratory: As per HPI Cardiovascular: As per HPI Integumentary: As per HPI <Phoebe Dolanlen - Last Filed: 01/16/24 08:52> Physical Examination - Vital Signs Temperature: 97.2 F Blood Pressure: 144/85 Pulse: 84 Respirations: 16 Pulse Ox (%): 99 - Physical Exam General: Alert, In no apparent distress, Oriented x3 HEENT: Atraumatic, Normocephalic Neck: Supple Respiratory: Normal air movement Cardiovascular: Normal pulses Capillary refill: <2 Seconds Gastrointestinal: Soft and benign Musculoskeletal: No clubbing, No swelling Integumentary: No rashes Neurological: Normal speech, Normal tone, Normal affect Lymphatics: No axilla or inguinal lymphadenopathy External genitalia: Deferred Rectal: Deferred <Phoebe Dolan - Last Filed: 01/16/24 08:52> Assessment And Plan - Plan 73-year-old male with a past medical history of pleural effusion, secondary to heart failure, chronic kidney disease stage III secondary to hypertension, d iabetes, hyperlipidemia presents to the emergency room with chest pain, shortness of breath, he reports symptoms worse over the last day, no reported nausea vomiting diarrhea, fever, cough edema. Recent admission December 12, 2023 for similar symptoms, renal failure, elevated troponin, elevated BNP (27,000), with pleural effusion., plan to admit for chest pain rule out AL, elevated trop onin. With cardiology to consult, on telemetry, creatinine 3.41 BUN 61, GFR 18, nephrology to consult, troponin elevated at 134 placed on heparin drip., microcytic anemia 8.5 2 5.7, Assessment and Plan Chest pain rule out AL likely type II NSTEMI likely secondary to renal failure/CHF Acute on chronic systolic heart failure Admit to obs. Heparin drip, INR, APTT, PTT per heparin protocol troponin 134.2 Consult cardiology, telemetry, heparin drip per protocol for AL Troponins every 8 x 3, BNP in the a.m. (troponins elevated every time for the past 10 + draws), lipid panel in the a.m., Electrolyte protocol trend electrolytes replace as needed Medications nitroglycerin q 5 minutes x 3 for as needed chest pain, Lipitor 40 mg p.o. at bedtime, aspirin 325 p.o. daily, morphine sulfate sulfate 4 mg IV every 4 hours as needed chest pain, Zofran 4 mg IV every 4 hours as needed nausea, Lopressor 5 mg IV every 6 hours as needed systolic greater than 160, Lasix 40 mg IV x 1, Echo with 2D Doppler if not recently done, NM stress test (01/16/24) Daily weight, Acute renal failure-CKD D stage III acute kidney injury unknown baseline, Consult nephrology in the a.m. for acute renal failure Avoid nephrotoxic medication Reconcile home meds, please add pharmacy 01/16/24 resume entresto, added Nifedipine History of hypertension unknown control Resume appropriate home meds, As needed antihypertensives PADMAJA IV iron <Phoebe Dolan - Last Filed: 01/16/24 08:52> - Plan Pt seen and examined. I agree with the note by the REFERENCE ASSISTANT. Pt will do NM stress test today. F/u Echo. Continue home meds for Htn <Delfina Nuñez - Last Filed: 01/16/24 11:08>
[2024-01-16] MEDS ORDERED: SOD FERRIC GLUC COMPLX/SUCROSE 125 MG in NA CHLORIDE 0.9% 100 ML IV SCH (09:00)
[2024-01-16] MEDS ORDERED: REGADENOSON 0.4 MG/5 ML SYR IV ONE (09:22)
[2024-01-16] MEDS: SOD FERRIC GLUC COMPLX/SUCROSE 125 MG in NA CHLORIDE 0.9% 100 ML IV SCH (10:32)
--- NOTE | 2024-01-16 10:57 | RAD REPORT ---
EXAM DESCRIPTION: NM - Rest Stress Cardiac Imaging - 01/16/2024 10:28 am CLINICAL HISTORY: Chest pain. COMPARISON: None. TECHNIQUE: The patient was administered 10.5 millicuries of Tc 99m Sestamibi prior to resting SPECT imaging of the heart. The patient was then administered 29.9 mCi of Tc 99m Sestamibi following exerci se or pharmacologic stress. Multiplanar SPECT images were reviewed. FINDINGS: Large area of diminished radiotracer activity involves the inferior left ventricular myoca rdium on rest and stress sequences Small to moderate area of diminished radiotracer activity involves the septal left ventricular myocar dium on rest and stress sequences The left ventricular ejection fraction equals 33% IMPRESSION: Large infarct inferior left ventricular myocardium Small to moderate infarct septal left ventricular myocardium No evidence of stress-induced ischemia
--- NOTE | 2024-01-16 12:45 | PN ---
Date of Progress Note: 01/16/2024 Subjective: The patient was admitted to the hospital with the shortness of breath. The patient foun d to have acute kidney injury with CHF with exacerbation. Creatinine upon presentation 3.4. Objective: Vital Signs: When I saw the patient, blood pressure 147/70, pulse of 97, afebrile. Chest: Faint rales, bilateral. Heart: S1, S2. Systolic murmur. Abdomen: Soft, nontender. Extremities: No edema. Neuro: Alert. No focality. The patient had the stress test today. Laboratory Data: Hemoglobin 8.3, sodium 138, potassium 3.7, bicarb 19, BUN 59, creatinine 3.2, trend ing down from 3.4, GFR of 20, calcium of 8. BNP 13,000. Troponin positive. CT abdomen and pelvis w as done without contrast. No hydronephrosis. Bilateral edema. Current Medications: The patient on include IV iron, atorvastatin, nifedipine, Lasix. Assessment And Plan: 1.Acute kidney injury secondary to cardiorenal syndrome close to his baseline, still on the overvolu me side. I am going to resume Lasix and we will follow up with Cardiology. Patient is going to be h igh risk for cardiac cath as complication of worsening kidney function with the exposure to the contr ast. 2.Hypertension, controlled, optimal. We will utilize blood pressure for more diuresis. 3.Anemia of chronic kidney disease with iron-deficiency anemia, started on IV iron. 4.Nlu-VM-fenwiqgvf myocardial infarction, status post stress test. Follow up with Cardiology. 5.Congestive heart failure with exacerbation. We will optimize fluid status. Follow up with Cardio logy. 6.Hyponatremia, dilutional. We will continue diuresis. 7.Hypokalemia. I will supplement cautiously and we will follow up. KEYANA/NEYDA Voice ID: [id number] Report ID: [id number]
[2024-01-16] MEDS: KCL 20 MEQ/100 mL IVPB 20 MEQ/100 ML BAG IV SCH (13:00)
[2024-01-16] MEDS ORDERED: NA CHLORIDE 0.9% 500 ML IV SCH (13:00)
[2024-01-16 17:29] LABS: Calcium Oxalate Crystals- Ur Few /HPF (None Seen); Specific Gravity 1.015 (1.005-1.030); Sqamous Epithelial None Seen /HPF (None Seen); Urine Bacteria None Seen /HPF (<20); Urine Bilirubin NEGATIVE (Negative); Urine Blood 1+ (Negative); Urine Clarity Turbid (Clear); Urine Color Light-Yellow (Yellow); Urine Culture Reflex Order NOT NEEDED; Urine Glucose NEGATIVE (Negative); Urine Ketones NEGATIVE (Negative); Urine Microscopic Reflex YN ORDER UMIC; Urine Mucus Slight /HPF (None Seen); Urine Nitrite NEGATIVE (Negative); Urine Protein 2+ (Negative); Urine RBC <5 /HPF (None Seen); Urine Urobilinogen Normal (Normal); Urine WBC <5 /HPF (<5); Urine pH 5.5 (5.0-7.0)
--- NOTE | 2024-01-16 18:26 | P.PN ---
Subjective Date of Service: 01/16/24 Chief Complaint: Chest pain Subjective: No new changes Review of Systems 10-point ROS is otherwise unremarkable Physical Examination - Vital Signs Temperature: 97.9 F Blood Pressure: 134/69 Pulse: 96 Respirations: 16 Pulse Ox (%): 99 - Physical Exam General: Alert, In no apparent distress HEENT: Atraumatic, PERRLA, EOMI Neck: Supple, JVD not distended Respiratory: Clear to auscultation bilaterally, Normal air movement Cardiovascular: Regular rate/rhythm, Normal S1 S2 Gastrointestinal: Normal bowel sounds, No tenderness Musculoskeletal: No tenderness Integumentary: No rashes Neurological: Normal speech, Normal tone, Normal affect Lymphatics: No axilla or inguinal lymphadenopathy - Studies Laboratory Data (last 24 hrs) 01/16/24 01/16/24 01/15/24 03:08 03:08 18:52 WBC 5.60 Hgb 8.3 L Hct 24.9 L Plt Count 207 Sodium 138 Potassium 3.7 BUN 59 H Creatinine 3.22 H Glucose 90 Phosphorus 4.4 Magnesium 2.0 Triglycerides 82 Cholesterol 146 HDL Cholesterol 64 H Cholesterol/HDL Ratio 2.28 Medications List Reviewed: Yes Assessment And Plan - Current Problems (Diagnosis) (1) Acute on chronic systolic heart failure Current Visit: No Status: Acute Plan: MOST RECENT ECHO SHOWS ef 40-45%, Patient is volume overloaded but got CKD stage 4. agree with IV Lasix 40 mg daily will get right heart cath in am to evaluate filling pressures. (2) Elevated troponin Current Visit: No Status: Acute Plan: patient with typical angina and abnormal stress test, explained to patient that he will need coronary angiogram and we will try to use the lowest amount of contrast. patient understand risk and benefits and wish to proceed. (3) HTN (hypertension) Current Visit: No Status: Chronic Plan: Continue Nifedpine. Qualifiers: Hypertension type: primary hypertension Qualified Code(s): I10 - Essential (primary) hypertension
[2024-01-17] MEDS ORDERED: NA CHLORIDE 0.9% 500 ML ONE (07:35)
[2024-01-17] MEDS ORDERED: HEPA 1000U/500MLS 2,000 UNIT/1,000 ML BAG IV ONE (07:41)
[2024-01-17] MEDS ORDERED: NITROGLYCERIN/D5W 50 MG/250 ML BTL IV ONE (07:41)
[2024-01-17] MEDS ORDERED: HEPARIN 5000 UNIT/ML 1 ML VIAL ONE (07:42)
[2024-01-17] MEDS ORDERED: LIDOCAINE 1% 20 ML MDV ONE (07:42)
[2024-01-17] MEDS ORDERED: HEPARIN 10,000 UNIT/10 ML VIAL IV ONE (07:42)
[2024-01-17] MEDS ORDERED: ATROPINE SULF 1 MG/10 ML SYR IV ONE (07:43)
[2024-01-17] MEDS ORDERED: TICAGRELOR 90 MG TABLET PO ONE (07:43)
[2024-01-17] MEDS ORDERED: CLOPIDOGREL 75 MG TABLET ONE (07:43)
[2024-01-17] MEDS ORDERED: ASPIRIN 325 MG TAB ONE (07:43)
[2024-01-17] MEDS ORDERED: FENTANYL CITR 100 MCG/2 ML ONE (07:57)
[2024-01-17] MEDS ORDERED: MIDAZOLAM HCL 2 MG/2 ML INJ ONE (07:57)
--- NOTE | 2024-01-17 08:30 | ECHO ---
HEIGHT: 5 ft 10 in WEIGHT: 170 lb 3.2 oz DATE OF STUDY: 01/16/[address]: Katie Bermeo BODY AND FENDER MECHANICSilvio 2-DIMENSIONAL: YES M.MODE: YES DOPPLER: YES COLOR FLOW: YES TDS: PORTABLE: YES DEFINITY: BUBBLE STUDY: DIAGNOSIS: EVALUATE CARDIAC FUNCTION CARDIAC HISTORY: CATHERIZATION: YES SURGERY: NO PROSTHETIC VALVE: NO PACEMAKER: NO MEASUREMENTS (cm) DIASTOLIC (NORMALS) SYSTOLIC (NORMALS) IVSd 1.0 (0.6-1.2) LA Diam 3.2 (1.9-4.0) LVEF 30-35% LVIDd 5.9 (3.5-5.7) LVIDs 4.6 (2.0-3.5) %FS 21% LVPWd 1.1 (0.6-1.2) Ao Diam 2.9 (2.0-3.7) 2 DIMENSIONAL ASSESSMENT: RIGHT ATRIUM: NORMAL LEFT ATRIUM: NORMAL RIGHT VENTRICLE: NORMAL LEFT VENTRICLE: MILD DILATED TRICUSPID VALVE: TRACE TRICUSPID REGURGITATION MITRAL VALVE: TRACE MITRAL REGURGITATION PULMONIC VALVE: NORMAL AORTIC VALVE: TRACE AORTIC REGURGITATION PERICARDIAL EFFUSION: NONE AORTIC ROOT: NORMAL LEFT VENTRICULAR WALL MOTION: MODERATE GLOBAL HYPOKINESIS DOPPLER/COLOR FLOW: GRADE II DIASTOLIC DYSFUNCTION COMMENTS: 1. MODERATE GLOBAL HYPOKINESIS, EJECTION FRACTION 30-35%, MODERATE REDUCED LEFT VENTRICULAR FUNCTION 2. GRADE II DIASTOLIC DYSFUNCTION 3. ELEVATED FILLING PRESSURE (RIGHT ATRIUM GREATER THAN 20 mmHg) TECHNOLOGIST: OMAR DONOVAN
--- NOTE | 2024-01-17 08:44 | TREADPHA ---
DX: CHEST PAIN Date of Study: 01/16/2024 Ht: 5' 10 " Wt: 170 lb 3.2 oz Consulting Physician: DARIO MEDICATIONS: JOSIAH ASPIRIN, LIPITOR, MORPHINE, PROCARDIA, ZOFRAN, KLOR-CON HISTORY: 73 YEAR OLD MALE WITH HISTORY OF CHEST PAIN. HISTORY OF DIABETES MELLITUS, HYPERLIPIDEMIA, STENTS IN HEART PHYSICIAL EXAMINATION: RESTING B.P.: 141/74 RESTING H.R.: 99 RESTING EKG: SINUS RHYTHM PROTOCOL: PHARMACOLOGIC EXERCISE TIME: 3:30 B.P. AT [place]AK STRESS: 128/65 IMPRESSION: LEXISCAN INJECTED. CARDIOLITE INJECTED - SEE NUCLEAR MEDICINE REPORT. NO CHEST PAIN, NO VENTRICULAR TACHYCARDIA, NO SUPRAVENTRICULAR TACHYCARDIA, PREMATURE VENTRICULAR COMPLEXES NOTED DURING LEXISCAN.
[2024-01-17] MEDS: ASPIRIN 81 MG CHEWABLE TABLET PO SCH (09:00)
[2024-01-17] MEDS: FUROSEMIDE 40 MG/4 ML VIAL IV SCH (09:00)
--- NOTE | 2024-01-17 09:24 | P.PN ---
Subjective Date of Service: 01/17/24 Chief Complaint: Chest pain Subjective: No new changes, No C/O voiced, Tolerating diet, Ambulating, Improving Review of Systems 10-point ROS is otherwise unremarkable Physical Examination - Vital Signs Temperature: 97.8 F Blood Pressure: 164/80 Pulse: 96 Respirations: 18 Pulse Ox (%): 99 - Physical Exam General: Alert, In no apparent distress HEENT: Atraumatic, PERRLA, EOMI Neck: Supple, JVD not distended Respiratory: Clear to auscultation bilaterally, Normal air movement Cardiovascular: Regular rate/rhythm, Normal S1 S2 Gastrointestinal: Normal bowel sounds, No tenderness Musculoskeletal: No tenderness Integumentary: No rashes Neurological: Normal speech, Normal tone, Normal affect Lymphatics: No axilla or inguinal lymphadenopathy - Studies Medications List Reviewed: Yes Assessment And Plan - Current Problems (Diagnosis) (1) Acute on chronic systolic heart failure Current Visit: No Status: Acute Plan: MOST RECENT ECHO SHOWS ef 40-45%, Right heart cath done today and shows normal filling pressures change lasix to 20 mg po daily. switch procardia to coreg 3.125 mg po BID (2) Elevated troponin Current Visit: No Status: Acute Plan: patient with typical angina and abnormal stress test, Coronary angiogram done today with one stent placement to proximal RCA ASA 81 mg daily for life. Brilinta 90 mg po BID for 12 months Lipitor 40 mg daily. (3) HTN (hypertension) Current Visit: No Status: Chronic Plan: switch nifedpine to coreg 3.125 mg po BID . Qualifiers: Hypertension type: primary hypertension Qualified Code(s): I10 - Essential (primary) hypertension
[2024-01-17 09:46] VITALS: O2SAT 100
[2024-01-17] MEDS: NA CHLORIDE 0.9% 1,000 ML IV SCH (10:20)
[2024-01-17] MEDS: NA CHLORIDE 0.9% 1,000 ML ONE (10:20)
[2024-01-17 10:41] LABS: Absolute Eosinophils 0.2 K/uL (0-0.5); Absolute Lymphocytes (CBC) 0.9 K/uL (0.7-4.9); Absolute Monocytes 0.4 K/uL (0.1-1.3); Absolute Neutrophil 3.5 K/uL (1.8-8.0); Basophils % 0.8 % (0-1.3); Eosinophils % 4.7 % (0-4.4); Hematocrit 27.4 % (39.6-49.0); MCH 26.7 pg (27.0-35.0); MCHC 32.8 g/dL (32.0-36.0); MCV 81.6 fL (80-100); MPV 7.6 fL (7.6-11.3); Monocytes % 7.4 % (3.3-12.3); Neutrophils % 69.1 % (41.7-73.7); Nucleated Red Blood Cells % 0.1 % (0-0); Platelets 216 thou/uL (152-406); RBC Red Blood Cell Count 3.36 M/uL (4.33-5.43); Red Cell Distribution Width 17.2 % (12.1-15.2)
[2024-01-17 11:03] LABS: ALT/SGPT 17 U/L (16-61); Albumin 3.3 g/dL (3.4-5.0); Albumin/Globulin Ratio 0.9 (1.1-1.8); Alkaline Phosphatase 119 U/L (45-117); BUN Blood Urea Nitrogen 54 mg/dL (7-18); Bicarbonate 20 mEq/L (21-32); Bilirubin Total 0.4 mg/dL (0.2-1.0); Globulin 3.8 g/dL (2.3-3.5); Glomerular Filtration Rate 20 ml/min (=/>90); Glucose Level 137 mg/dL (74-106); Protein, Total 7.1 g/dL (6.4-8.2); Sodium Level 138 mEq/L (136-145)
[2024-01-17 11:04] LABS: AST/SGOT < 10 U/L (15-37); Troponin High Sensitivity 90.8 pg/mL (<58.9)
--- NOTE | 2024-01-17 11:33 | PN ---
Date of Progress Note: 01/17/2024 Subjective: The patient was admitted with chest pain. Stress test was positive yesterday. The refugio ent had acute kidney injury secondary to cardiorenal. The patient got cardiac cath today. Physical Examination: Vital Signs: Blood pressure 160/79, pulse of 94, afebrile. Chest: Clear to auscultation. Heart: S1, S2 regular. Abdomen: Soft, nontender. Extremities: No edema. Neuro: Alert. No focality. Laboratory Data: Heme 8.3. Sodium 138, potassium 3.7, bicarb 19, BUN 59, creatinine 3.2. GFR 20. Calcium 8. BNP 13,000. Assessment And Plan: 1.Acute kidney injury secondary to cardiorenal secondary to poor perfusion, acute tubular necrosis. With the kidney function mildly improving, patient had cardiac cath. Today, I am going to start the patient on gentle hydration and we will follow up recovery of the patient. We will monitor the refugio ent closely. It is possible the contrast is going to worsen his kidney function. We will give only normal saline 50 per hour for 10 hour and we will follow up. 2.Hypertension, controlled, optimal. I discontinued GRACE inhibitor yesterday given the marginal bloo d pressure and we going to start the patient on IV fluid and we will hold the Lasix. I am going to g o ahead and start the patient on carvedilol and we will follow up with Cardiology. 3.Non-ST elevation myocardial infarction, hypokinesia, acute congestive heart failure. We will opti jones fluid status. We will accept the patient to be on the wet side in the next 24 hours given the c ardiac cath and contrast and we will follow up with Cardiology after catheterization. 4.Hypokalemia, status post supplement. 5.Acidosis. We will start the patient on oral bicarb. 6.Hyponatremia, dilutional. We will monitor the patient. No need for supplement. KEYANA/NEYDA Voice ID: [id number] Report ID: [id number]
--- NOTE | 2024-01-17 12:24 | OP ---
Date of Procedure: 01/17/2024 Surgeon: Matty Peralta Procedures Performed: 1.Right heart catheterization. 2.Left heart catheterization. 3.Coronary angiogram. 4.PCI of the RCA. Indications For Procedure: Congestive heart failure, chest pain, and abnormal stress test. Complications: None. Estimated Blood Loss: Less than 50 cc. Contrast Used: 35 cc. Sedation Time: 40 minutes with 1 of Versed and 25 of fentanyl. Access: Right radial, closed by TR band, and right IJ sheath secured in place for minimal compressio n later. Description Of Procedure: After risks, benefits, and alternatives were explained to the patient, the patient agreed to proceed with the procedure and signed informed consent. The patient was [facility] to the floating labor gang supervisor, prepped and draped in sterile fashion. Right IJ access was obtained using the u ltrasound-guided micropuncture technique. A 7-Lao sheath was inserted. Gile catheter was inserte d up to the right side of the heart. Right heart numbers were obtained and Gile was removed without any complications. Next, the right radial access was obtained using an ultrasound-guided micropunctu re technique, a 6-Lao sheath was inserted. A [place] 4 catheter was advanced over a J-wire to the L V cavity. LVEDP was obtained. Pullback did not show any gradient. Same catheter was used for selec tive coronary angiogram of the left and right coronary systems. Left catheter was later exchanged fo r a JR4 guide to engage the RCA. Runthrough wire passed across the lesions. Heparin was administere d and ACT was therapeutic. We pre-dilated the lesion with an NC 2.5 mm balloon. Next, Synergy 3.0 x 20 mm drug-eluting stent was placed across the lesion that was postdilated with a stent balloon up t o 18 atmospheres. Final angiogram shows YANI-3 flow. Wire was removed. JR4 catheter was removed ov er a J-wire and right radial access was closed with a TR band. Findings: 1.Left main is normal. 2.LAD, proximal to mid stent that is patent with diffuse 30% mid stent ISR, distal mild LI. 3.Left circ, mild LI, gives large OM that got mid 40% to 50% disease, then mild LI. 4.RCA, dominant, proximal 70% disease just at the proximal portions of the mid RCA stent. So, PCI w as done with Synergy 3.0 x 20 mm drug-eluting stent, which overlapped with the mid RCA stent that was patent. Distal mild LI. 5.RPDA, RPLV, mild LI. Right Heart Catheterization Findings: 1.Right atrial pressure is 5 mmHg. 2.RV is 35/3. 3.PA pressure is 36/15 with mean of 22. 4.Pulmonary capillary wedge pressure is 10. 5.Cardiac output is 6.18, average by thermal. 6.LVEDP is 20 mmHg. Assessment And Plan: 1.Significant proximal RCA disease, PCI done with Synergy 3.0 x 20 mm drug-eluting stent that was ov erlapped with mid RCA stent. 2.Gdne-fu-njqvxinv OM disease. 3.Mild mid LAD ISR. 4.Normal filling pressures and normal cardiac output. Plan: 1.Aspirin 81 mg daily for life, aspirin 325 x1 was given in the floating labor gang supervisor. 2.Brilinta 180 x1 was given in the floating labor gang supervisor, continue Brilinta 90 mg p.o. b.i.d. for 12 months. ASA/NEYDA Voice ID: [id number] Report ID: [id number]
[2024-01-17] MEDS: SODIUM BICARB 325 MG TAB PO SCH (12:51)
--- NOTE | 2024-01-17 15:12 | EKG ---
Test Date: 2024-01-14 Test Time: 23:46:39 Nitroglycerin Distributor: LISANDRO MEASUREMENT RESULTS: Intervals: Rate: 101 PA: 178 QRSD: 96 QT: 376 QTc: 487 Lena: P: 50 PA: 178 QRS: 46 T: 102 INTERPRETIVE STATEMENTS: Sinus tachycardia Left ventricular hypertrophy with repolarization abnormality Abnormal ECG Compared to ECG 12/12/2023 09:51:13 Left ventricular hypertrophy now present Early repolarization now present Sinus rhythm no longer present Atrial premature complex(es) no longer present Aberrant conduction of supraventricular beat(s) no longer present Electronically Signed On 01-17-24 15:02:02 CDT by Arie Bragg
--- NOTE | 2024-01-17 15:12 | EKG ---
Test Date: 2024-01-15 Test Time: 01:24:10 Folder Hand: SARA MEASUREMENT RESULTS: Intervals: Rate: 98 NE: 184 QRSD: 92 QT: 368 QTc: 469 Louin: P: 49 NE: 184 QRS: 47 T: 146 INTERPRETIVE STATEMENTS: Normal sinus rhythm Left ventricular hypertrophy with repolarization abnormality Abnormal ECG Compared to ECG 01/14/2024 23:46:39 Sinus tachycardia no longer present Electronically Signed On 01-17-24 15:01:55 CDT by Arie Bragg
[2024-01-17 16:39] VITALS: TEMP 97.5
--- NOTE | 2024-01-17 17:07 | P.DS ---
Admission Date: 01/16/24 Discharge Date: 01/17/24 Reason for Admission: Chest pain Consultations: Dr. Peralta (Cardiology) and Dr. Martinez (Nephrology) Procedures: Right heart catheterization Brief History of Present Illness: 73-year-old male with a past medical history of pleural effusion, secondary to heart failure, chronic kidney disease stage III secondary to hypertension, diabetes, hyperlipidemia presents to the emergency room with chest pain, shortness of breath, he reports symptoms worse over the last day, no reported nausea vomiting, diarrhea, fever, cough, or edema. Recent admission December 11 for similar symptoms, renal failure, elevated troponin, elevated BNP (27,000), with pleural effusion, plan to admit for chest pain rule out ID, elevated troponin. With cardiology to consult, on telemetry, creatinine 3.41 BUN 61, GFR 18, nephrology to consult, troponin elevated at 134 placed on heparin drip., microcytic anemia 8.5 Hospital Course: Mr. Veronica did well over the course of his hospitalization. He was seen by both Dr. Martinez and Dr. Peralta. Mr. Veronica had an abnormal stress test and was taken for right coronary angiogram today, 1 stent was placed in the proximal RCA. Dr. Peralta would like patient to take Lipitor 40 mg p.o. nightly, Brilinta 90 mg p.o. twice daily x 12 months, aspirin 81 mg p.o. daily for life, Coreg 3.125 mg p.o. twice daily, Lasix 20 mg p.o. daily. He should follow-up with his PCP in [address] Martinez in 1 to 2 weeks and also with Dr. Peralta in 1 to 2 weeks. <Phoebe Dolan - Last Filed: 01/17/24 17:07> Admission Date: 01/16/24 Discharge Date: 01/17/24 Hospital Course: Pt seen and examined. I agree with the note by the CONSUMER AFFAIRS MANAGER. Pt had abnorma;l stress test and Cardiology did cardiac cath. cardiology placed 1 stent. Will continue brilinta and aspirin for at least 1 year. Continue atorvastatin, coreg and lasix as prescribed. Ok to discharge pt. <Delfina Nuñez - Last Filed: 01/17/24 22:22> Disposition: ROUTINE DISCHARGE Discharge Condition: GOOD Vital Signs/Physical Exam: Temp Pulse Resp BP Pulse Ox 97.5 F 93 H 16 137/66 99 01/17/24 16:00 01/17/24 16:00 01/17/24 16:00 01/17/24 16:00 01/17/24 16:00 General: Alert, In no apparent distress, Oriented x3 HEENT: Atraumatic, Normocephalic Neck: Supple Respiratory: Clear to auscultation bilaterally, Normal air movement Cardiovascular: Normal pulses, Regular rate/rhythm, Normal S1 S2 Capillary refill: <2 Seconds Gastrointestinal: Soft and benign Musculoskeletal: No clubbing Integumentary: No rashes Neurological: Normal speech, Normal tone, Normal affect Lymphatics: No axilla or inguinal lymphadenopathy External genitalia: Deferred Rectal: Deferred Laboratory Data at Discharge: WBC 5.00 thou/uL (4.3-10.9) 01/17/24 10:35 Hgb 9.0 g/dL (13.6-17.9) L 01/17/24 10:35 Hct 27.4 % (39.6-49.0) L 01/17/24 10:35 Plt Count 216 thou/uL (152-406) 01/17/24 10:35 PT Cancelled 01/15/24 20:52 INR Cancelled 01/15/24 20:52 APTT Cancelled 01/15/24 20:52 Sodium 138 mEq/L (136-145) 01/17/24 10:35 Potassium 4.0 mEq/L (3.5-5.1) 01/17/24 10:35 BUN 54 mg/dL (7-18) H 01/17/24 10:35 Creatinine 3.14 mg/dL (0.70-1.30) H 01/17/24 10:35 Glucose 137 mg/dL (74-106) H 01/17/24 10:35 Phosphorus 4.4 mg/dL (2.5-4.9) 01/15/24 18:52 Magnesium 2.0 mg/dL (1.6-2.4) 01/16/24 03:08 Total Bilirubin 0.4 mg/dL (0.2-1.0) 01/17/24 10:35 AST < 10 U/L (15-37) L 01/17/24 10:35 ALT 17 U/L (16-61) 01/17/24 10:35 Alkaline Phosphatase 119 U/L (45-117) H 01/17/24 10:35 Triglycerides 82 mg/dL (<150) 01/15/24 18:52 Cholesterol 146 mg/dL (<200) 01/15/24 18:52 HDL Cholesterol 64 mg/dL (40-60) H 01/15/24 18:52 Cholesterol/HDL Ratio 2.28 01/15/24 18:52 Lipase 52 U/L (13-75) 01/14/24 23:44 <Dolan,Phoebe Jameel - Last Filed: 01/17/24 17:07> Vital Signs/Physical Exam: Temp Pulse Resp BP Pulse Ox 97.5 F 95 H 16 142/67 H 99 01/17/24 16:00 01/17/24 18:08 01/17/24 16:00 01/17/24 18:08 01/17/24 16:00 Laboratory Data at Discharge: WBC 5.00 thou/uL (4.3-10.9) 01/17/24 10:35 Hgb 9.0 g/dL (13.6-17.9) L 01/17/24 10:35 Hct 27.4 % (39.6-49.0) L 01/17/24 10:35 Plt Count 216 thou/uL (152-406) 01/17/24 10:35 PT Cancelled 01/15/24 20:52 INR Cancelled 01/15/24 20:52 APTT Cancelled 01/15/24 20:52 Sodium 138 mEq/L (136-145) 01/17/24 10:35 Potassium 4.0 mEq/L (3.5-5.1) 01/17/24 10:35 BUN 54 mg/dL (7-18) H 01/17/24 10:35 Creatinine 3.14 mg/dL (0.70-1.30) H 01/17/24 10:35 Glucose 137 mg/dL (74-106) H 01/17/24 10:35 Phosphorus 4.4 mg/dL (2.5-4.9) 01/15/24 18:52 Magnesium 2.0 mg/dL (1.6-2.4) 01/16/24 03:08 Total Bilirubin 0.4 mg/dL (0.2-1.0) 01/17/24 10:35 AST < 10 U/L (15-37) L 01/17/24 10:35 ALT 17 U/L (16-61) 01/17/24 10:35 Alkaline Phosphatase 119 U/L (45-117) H 01/17/24 10:35 Triglycerides 82 mg/dL (<150) 01/15/24 18:52 Cholesterol 146 mg/dL (<200) 01/15/24 18:52 HDL Cholesterol 64 mg/dL (40-60) H 01/15/24 18:52 Cholesterol/HDL Ratio 2.28 01/15/24 18:52 Lipase 52 U/L (13-75) 01/14/24 23:44 <Delfina Nuñez - Last Filed: 01/17/24 22:22> Diet: AHA Activity: Ad nikhil <Phoebe Dolan - Last Filed: 01/17/24 17:07> <Delfina Nuñez - Last Filed: 01/17/24 22:22> Home Medications: Aspirin [Aspirin EC] 81 mg PO DAILY #30 tab 11/13/23 Atorvastatin Calcium [Lipitor] 40 mg PO BEDTIME #30 tab 11/13/23 Furosemide [Lasix] 20 mg PO DAILY #90 tab 01/17/24 Ticagrelor [Brilinta*] 90 mg PO BID #180 tab 01/17/24 carvediloL [Coreg] 3.125 mg PO BID #180 tab 01/17/24 New Medications: Ticagrelor [Brilinta*] 90 mg PO BID #180 tab carvediloL [Coreg] 3.125 mg PO BID #180 tab Furosemide [Lasix] 20 mg PO DAILY #90 tab Physician Discharge Instructions: Okay to DC IV and DC home Follow-up with primary care provider in 1 to 2 weeks Follow-up with cardiology in 1 to 2-week Please call the inpatient unit for any questions or concerns regarding hospital stay Return to the ER for worsening symptoms Mr. Veronica did well over the course of his hospitalization. He was seen by both Dr. Martinez and Dr. Peralta. Mr. Veronica had an abnormal stress test and was taken for right coronary angiogram today, 1 stent was placed in the proximal RCA. Dr. Peralta would like patient to take Lipitor 40 mg p.o. nightly, Brilinta 90 mg p.o. twice daily x 12 months, aspirin 81 mg p.o. daily for life, Coreg 3.125 mg p.o. twice daily, Lasix 20 mg p.o. daily. He should follow-up with his PCP in [address] Martinez in 1 to 2 weeks and also with Dr. Peralta in 1 to 2 weeks. Followup: Nel Henley [Primary Care Provider] - Deisy Martinez MD [ACTIVE - CAN ADMIT] - Matty Peralta MD [ACTIVE - CAN ADMIT] -
[2024-01-17] MEDS: carvediloL 6.25 MG TAB PO SCH (18:08)
[2024-01-17] MEDS: TICAGRELOR 90 MG TABLET PO SCH (18:10)
[2024-01-17 18:13] VITALS: BP 142/67
== END 2024-01-17 18:45 | disposition home or self-care (01) | DRG 321 ==
LOC: ER 22:50 → ERHOLD 01-15 01:39 → 2ND 01-15 13:56 → OBSVTOIN 01-16 16:26
PROVIDERS: ADMIT Hospitalist; ATTEND Hospitalist
PROC: 027034Z Dilation of Coronary Artery, One Artery with Drug-eluting Intraluminal Device, Percutaneous Approach (ICD-10-PCS; principal; 2024-01-17)
PROC: 4A023N8 Measurement of Cardiac Sampling and Pressure, Bilateral, Percutaneous Approach (ICD-10-PCS; 2024-01-17)
PROC: B2111ZZ Fluoroscopy of Multiple Coronary Arteries using Low Osmolar Contrast (ICD-10-PCS; 2024-01-17)
DX: I13.0 Hypertensive heart and chronic kidney disease with heart failure and stage 1 through stage 4 chronic kidney disease, or unspecified chronic kidney disease (principal); I21.A1 Myocardial infarction type 2; I50.23 Acute on chronic systolic (congestive) heart failure; N17.0 Acute kidney failure with tubular necrosis; N18.4 Chronic kidney disease, stage 4 (severe); E87.1 Hypo-osmolality and hyponatremia; E87.20 Acidosis, unspecified; E11.22 Type 2 diabetes mellitus with diabetic chronic kidney disease; D63.1 Anemia in chronic kidney disease; D50.9 Iron deficiency anemia, unspecified; E87.6 Hypokalemia; E78.5 Hyperlipidemia, unspecified; I25.119 Atherosclerotic heart disease of native coronary artery with unspecified angina pectoris; R79.89 Other specified abnormal findings of blood chemistry; Z95.5 Presence of coronary angioplasty implant and graft; Z79.82 Long term (current) use of aspirin; Z79.02 Long term (current) use of antithrombotics/antiplatelets; Z90.49 Acquired absence of other specified parts of digestive tract; Z79.899 Other long term (current) drug therapy
CPT/HCPCS: 36415; 70450; 71045; 74176; 76937; 78452; 80048; 80053; 80061; 80076; 81001; 82947; 83690; 83735; 83880; 84100; 84443; 84484; 85025; 85347; 85610; 85730; 86850; 86900; 86901; 92928; 93005; 93017; 93306; 93460; 94760; 96365; 96366; 96375; 99152; 99153; 99285; A9500; C1725; C1893; G0378; J0461; J1644; J1940; J2001; J2250; J2405; J2785; J2916; J3010; J3480; J7030; J7040; Q9966

== ENCOUNTER 2024-01-19 13:24 | Emergency (ER) | payer OTHER ==
[2024-01-19 14:52] LABS: Absolute Eosinophils 0.2 K/uL (0-0.5); Absolute Lymphocytes (CBC) 0.6 K/uL (0.7-4.9); Absolute Monocytes 0.5 K/uL (0.1-1.3); Absolute Neutrophil 4.5 K/uL (1.8-8.0); Basophils % 0.7 % (0-1.3); Eosinophils % 2.9 % (0-4.4); Hematocrit 27.8 % (39.6-49.0); Hemoglobin 9.1 g/dL (13.6-17.9); Lymphocytes % 10.9 % (15.3-44.8); MCH 26.7 pg (27.0-35.0); MCHC 32.6 g/dL (32.0-36.0); MPV 7.8 fL (7.6-11.3); Monocytes % 8.8 % (3.3-12.3); Neutrophils % 76.7 % (41.7-73.7); Platelets 231 thou/uL (152-406); RBC Red Blood Cell Count 3.39 M/uL (4.33-5.43); Red Cell Distribution Width 17.4 % (12.1-15.2)
[2024-01-19 15:14] LABS: Albumin 3.5 g/dL (3.4-5.0); Albumin/Globulin Ratio 0.8 (1.1-1.8); Anion Gap 12.9 mEq/L (5.0-15.0); Bilirubin Total 0.4 mg/dL (0.2-1.0); Globulin 4.2 g/dL (2.3-3.5); Potassium 3.9 mEq/L (3.5-5.1); Protein, Total 7.7 g/dL (6.4-8.2)
--- NOTE | 2024-01-19 16:19 | RAD REPORT ---
EXAM DESCRIPTION: CTAbdomen Pelvis Wo Contrast - 01/19/2024 4:05 pm CLINICAL HISTORY: ABD PAIN COMPARISON: Abdomen Pelvis Wo Contrast dated 01/15/2024; Abdomen Pelvis W Contrast dated 4; Stone Protocol dated 06/21/2023; Abdomen Pelvis Wo Contrast dated 10/26/2022; CT ABD PELVIS W CONT RAST dated 06/10/2012 TECHNIQUE: CT of the abdomen and pelvis was performed. All CT scans are performed using dose optimization technique as appropriate and may include automated exposure control or mA/KV adjustment according to patient size. FINDINGS: Lower chest: 4 mm left lower lobe pulmonary nodule is unchanged and benign. Coronary arter y calcification. Cardiomegaly. Liver: 10 mm hypoattenuating lesion in the hepatic dome is unchanged since 2011 and benign. Biliary: Cholecystectomy. Similar mild extrahepatic biliary ductal dilatation. Stomach: No significant focal abnormality. Duodenum: No significant focal abnormality. Pancreas: No significant abnormality. Spleen: No significant abnormality. Adrenal: No suspicious lesions. Kidney/ureter: No hydronephrosis. No renal calculi. Nonspecific perinephric stranding. Retroperitoneum: No retroperitoneal adenopathy. Vascular: No aneurysm. Atherosclerosis which is mild. Bowel: No bowel obstruction. Peritoneum: No ascites or free air. Small fat containing inguinal hernias. Bladder: Distended bladder. Reproductive: No adnexal masses. Bones: No acute fracture. Mild disc height loss L5-S1 . Other: n/a IMPRESSION: No acute intra-abdominal or pelvic finding. Incidental findings as noted above.
--- NOTE | 2024-01-19 16:28 | EDPHYS ---
Physician Documentation [facility] Name: Sylvain Veronica Age: 73 yrs Sex: Male : 1950 Arrival Date: 01/19/2024 Time: 13:24 Bed 15 Private MD: ED Physician Leonel Almazan HPI: 01/18 16:06 This 73 yrs old Male presents to ER via Ambulatory with complaints of Doesn't jr8 Feel Right - POST SURGERY. 16:06 Onset: The symptoms/episode began/occurred gradually, 1 day(s) ago. Associated signs jr8 and symptoms: Pertinent positives: nausea. Severity of pain: At its worst the pain was mild in the emergency department the pain is unchanged. The patient has not experienced similar symptoms in the past. The patient has not recently seen a physician. Patient recently admitted and discharged 2 days ago after having coronary angioplasty completed. Was started on Brilinta and carvedilol. Since he has been taking the medication started to have nausea, abdominal discomfort and lightheadedness. Denies any other symptoms at this time. Stated that he had been fine after being discharged until 1 day ago. No other complications that he is aware of.. Historical: - Allergies: 13:51 No Known Allergies; aa5 - PMHx: 13:51 Congestive heart failure; Systolic; Diabetes - IDDM; Hypertensive disorder; kidney aa5 disease; CKD 3; - PSHx: 13:51 Appendectomy; cardiac stents; Cholecystectomy; aa5 - Immunization history:: Adult Immunizations unknown. - Infectious Disease History:: Denies. - Social history:: Smoking status: Patient denies any tobacco usage or history of. ROS: 16:06 Eyes: Negative for injury, pain, redness, and discharge, ENT: Negative for injury, jr8 pain, and discharge, Neck: Negative for injury, pain, and swelling, Cardiovascular: Negative for chest pain, palpitations, and edema, Respiratory: Negative for shortness of breath, cough, wheezing, and pleuritic chest pain, Back: Negative for injury and pain, MS/Extremity: Negative for injury and deformity, Skin: Negative for injury, rash, and discoloration, 16:06 Abdomen/GI: Positive for abdominal pain, nausea, 16:06 Neuro: Positive for dizziness, Exam: 16:06 Constitutional: This is a well developed, well nourished patient who is awake, alert, jr8 and in no acute distress. Eyes: Pupils equal round and reactive to light, extra-ocular motions intact. Lids and lashes normal. Conjunctiva and sclera are non-icteric and not injected. Cornea within normal limits. Periorbital areas with no swelling, redness, or edema. Cardiovascular: Regular rate and rhythm with a normal S1 and S2. No gallops, murmurs, or rubs. Normal PMI, no JVD. No pulse deficits. Respiratory: Lungs have equal breath sounds bilaterally, clear to auscultation and percussion. No rales, rhonchi or wheezes noted. No increased work of breathing, no retractions or nasal flaring. Abdomen/GI: Soft, non-tender, with normal bowel sounds. No distension or tympany. No guarding or rebound. No evidence of tenderness throughout. Skin: Warm, dry with normal turgor. Normal color with no rashes, no lesions, and no evidence of cellulitis. MS/ Extremity: Pulses equal, no cyanosis. Neurovascular intact. Full, normal range of motion. Neuro: Awake and alert, GCS 15, oriented to person, place, time, and situation. Cranial nerves II-XII grossly intact. Motor strength 5/5 in all extremities. Sensory grossly intact. Cerebellar exam normal. Normal gait. 16:21 ECG was reviewed by the Attending Physician. [facility] Vital Signs: 13:50 BP 135 / 80; Pulse 81; Resp 18 S; Temp 98.4(O); Pulse Ox 100% on R/A; Weight 80.29 kg aa5 (R); Height 5 ft. 10 in. (R); 15:42 BP 148 / 80; Pulse 80; Resp 18; Pulse Ox 99% on R/A; rs5 17:00 BP 144 / 77; Pulse 77; Resp 18; Pulse Ox 99% ; rs5 13:50 Body Mass Index 25.40 (80.29 kg, 177.8 cm) aa5 MDM: 13:49 Patient medically screened. [facility] 16:21 Differential diagnosis: bowel obstruction, gastritis, non-specific abd pain, jr8 pancreatitis, Acute kidney injury, dehydration, gastroenteritis. Data reviewed: vital signs, nurses notes, lab test result(s), EKG, radiologic studies, plain films. Consideration of Admission/Observation Escalation of care including admission/observation considered. Independent interpretation of the following test(s) in the Emergency Department EKG: See my EKG interpretation above monitor and storage bin tender: rate is 78 beats/min, Rhythm is normal sinus rhythm. 16:21 ED course: Discussed with patient no acute findings on EKG or imaging at this time. jr8 Labs stable if not improved from his previous ER visit and admission. Told him to follow-up with cardiology and if worse or with change come back to emergency room immediately for reevaluation. Patient understood and good plan this time.. 01/18 14:04 Order name: CBC with Diff; Complete Time: 15:50 aa5 01/18 14:04 Order name: CMP; Complete Time: 15:50 aa5 01/18 14:04 Order name: Lipase; Complete Time: 15:50 aa5 01/18 15:51 Order name: CT Abd/Pelvis - Without Contrast; Complete Time: 16:21 jr8 01/18 14:04 Order name: IV Saline Lock; Complete Time: 15:30 aa5 01/18 14:04 Order name: Labs collected and sent; Complete Time: 15:30 aa5 01/18 14:04 Order name: EKG - Nurse/Tech; Complete Time: 15:30 aa5 EC:21 Rate is 78 beats/min. Rhythm is regular, Normal Sinus Rhythm. QRS [place] is Normal. [place] jr8 interval is normal. QRS interval is normal. QT interval is normal. No Q waves. T waves are Normal. No ST changes noted. Clinical impression: NSR w/ Non-specific ST/T Changes and LVH. Interpreted by me. Reviewed by me. Administered Medications: No medications were administered Disposition Summary: 01/19/24 16:27 Discharge Ordered Notes: Location: Home jr8 Problem: new jr8 Symptoms: have improved jr8 Condition: Stable jr8 Diagnosis - Chronic kidney disease, unspecified jr8 - Anemia in chronic kidney disease jr8 - Abdominal pain, Generalized jr8 Followup: jr8 - With: Arie Bragg MD - When: 1 - 2 days - Reason: Recheck today's complaints, Continuance of care, Re-evaluation by your physician Forms: - Medication Reconciliation Form jr8 - Antibiotic Education jr8 - Prescription Opioid Use jr8 - Patient Portal Instructions jr8 - Leadership Thank You Letter jr8 Signatures: Dispatcher [employer] EDTimmy Chinri, RN RN aa5 Zacarias Alfaro PA PA jr8
--- NOTE | 2024-01-19 16:28 | ER ---
Nurse's Notes [facility] Name: Sylvain Veronica Age: 73 yrs Sex: Male : 1950 Arrival Date: 01/19/2024 Time: 13:24 Bed 15 Private MD: Diagnosis: Chronic kidney disease, unspecified;Anemia in chronic kidney disease;Abdominal pain, Generalized Presentation: 01/18 13:50 Chief complaint: Patient states: had heart stent recently, states "I haven't been aa5 feeling good, my stomach is sore, I have nausea, and I feel dizzy". Pt denies chest pain. 13:50 Coronavirus screen: At this time, the client does not indicate any symptoms associated aa5 with coronavirus-19. Ebola Screen: Patient denies travel to an Ebola-affected area in the 21 days before illness onset. Initial Sepsis Screen: Does the patient meet any 2 criteria? No. Patient's initial sepsis screen is negative. Does the patient have a suspected source of infection? No. Patient's initial sepsis screen is negative. Risk Assessment: Do you want to hurt yourself or someone else? Patient reports no desire to harm self or others. Onset of symptoms was January 18, 2024. 13:50 Acuity: JACKIE 3 aa5 13:50 Method Of Arrival: Ambulatory aa5 Historical: - Allergies: 13:51 No Known Allergies; aa5 - PMHx: 13:51 Congestive heart failure; Systolic; Diabetes - IDDM; Hypertensive disorder; kidney aa5 disease; CKD 3; - PSHx: 13:51 Appendectomy; cardiac stents; Cholecystectomy; aa5 - Immunization history:: Adult Immunizations unknown. - Infectious Disease History:: Denies. - Social history:: Smoking status: Patient denies any tobacco usage or history of. Screenin:50 [facility] ED Fall Risk Assessment (Adult) History of falling in the last 3 months, rs5 including since admission No falls in past 3 months (0 pts) Confusion or Disorientation No (0 pts) Intoxicated or Sedated No (0 pts) Impaired Gait No (0 pts) Mobility Assist Device Used No (0 pt) Altered Elimination No (0 pt) Score/Fall Risk Level 0 - 2 = Low Risk Oriented to surroundings, Maintained a safe environment. Abuse screen: Denies threats or abuse. Nutritional screening: No deficits noted. Tuberculosis screening: No symptoms or risk factors identified. Assessment: 13:50 General: Appears in no apparent distress. comfortable, Behavior is calm, cooperative. rs5 Pain: Denies pain. Neuro: Level of Consciousness is awake, alert, obeys commands, Reports intermittent dizziness . Cardiovascular: Patient's skin is warm and dry. Rhythm is regular. Respiratory: Airway is patent Respiratory effort is even, unlabored, Respiratory pattern is regular, symmetrical. GI: Abdomen is round non-distended, Abd is soft and non tender X 4 quads. Reports intermittent nausea. : No signs and/or symptoms were reported regarding the genitourinary system. EENT: No signs and/or symptoms were reported regarding the EENT system. Derm: Skin is intact, Skin is dry, Skin is normal, Skin temperature is warm. Musculoskeletal: Range of motion: intact in all extremities. 13:50 Reassessment: "I just don't feel right". rs5 15:01 Reassessment: Patient and/or family updated on plan of care and expected duration. Pain rs5 level reassessed. Patient is alert, oriented x 3, equal unlabored respirations, skin warm/dry/pink. 15:41 Reassessment: Patient and/or family updated on plan of care and expected duration. Pain rs5 level reassessed. Patient is alert, oriented x 3, equal unlabored respirations, skin warm/dry/pink. 16:50 Reassessment: awaiting discharge papers and prescriptions from provider . rs5 Vital Signs: 13:50 BP 135 / 80; Pulse 81; Resp 18 S; Temp 98.4(O); Pulse Ox 100% on R/A; Weight 80.29 kg aa5 (R); Height 5 ft. 10 in. (R); 15:42 BP 148 / 80; Pulse 80; Resp 18; Pulse Ox 99% on R/A; rs5 17:00 BP 144 / 77; Pulse 77; Resp 18; Pulse Ox 99% ; rs5 13:50 Body Mass Index 25.40 (80.29 kg, 177.8 cm) aa5 ED Course: 13:27 Patient arrived in ED. mg5 13:49 Zacarias Alfaro PA is PHCP. jr8 13:49 Leonel Almazan MD is Attending Physician. jr8 13:50 Arm band placed on. aa5 13:50 Patient has correct armband on for positive identification. Placed in gown. Bed in low rs5 position. Call light in reach. Side rails up X2. 13:50 No provider procedures requiring assistance completed. rs5 13:53 Triage completed. aa5 14:20 Juliocesar Forman, RN is Primary Nurse. rs5 14:45 Inserted saline lock: 22 gauge in right wrist, using aseptic technique. Blood collected. 16:07 CT Abd/Pelvis - Without Contrast In Process Unspecified. EDMS 16:25 Arie Bragg MD is Referral Physician. jr8 17:00 IV discontinued, intact, bleeding controlled, No redness/swelling at site. Pressure rs5 dressing applied. Administered Medications: No medications were administered Medication: 17:00 VIS not applicable for this client. rs5 Outcome: 16:27 Discharge ordered by . jr8 17:00 Discharged to home ambulatory, rs5 17:00 Condition: stable 17:00 Discharge instructions given to patient, family, Instructed on discharge instructions, follow up and referral plans. Demonstrated understanding of instructions, follow-up care, medications, Prescriptions given X 1, 17:07 Patient left the ED. rs5 Signatures: Dispatcher [employer] EDTN Meggan Yang, RN RN aa5 Zacarias Alfaro PA PA jr8 Yvrose Hayes RN RN Juliocesar Forman, RN RN rs5 Shania Ralph mg5
[2024-01-19 17:33] VITALS: BP 148/80; TEMP 98.4; O2SAT 99
--- NOTE | 2024-01-22 14:23 | EKG ---
Test Date: 2024-01-19 Test Time: 15:24:24 Security Director: SHANNON MEASUREMENT RESULTS: Intervals: Rate: 78 IN: 184 QRSD: 96 QT: 412 QTc: 469 [place]: P: 56 IN: 184 QRS: 36 T: 146 INTERPRETIVE STATEMENTS: Normal sinus rhythm Left ventricular hypertrophy with repolarization abnormality Abnormal ECG Compared to ECG 01/15/2024 01:24:10 No significant changes Electronically Signed On 01-22-24 14:14:28 CDT by Arie Bragg
== END 2024-01-19 17:07 | disposition home or self-care (01) ==
LOC: ER 13:24
DX: R10.84 Generalized abdominal pain (principal); E11.22 Type 2 diabetes mellitus with diabetic chronic kidney disease; I13.0 Hypertensive heart and chronic kidney disease with heart failure and stage 1 through stage 4 chronic kidney disease, or unspecified chronic kidney disease; N18.30 Chronic kidney disease, stage 3 unspecified; I50.9 Heart failure, unspecified; D63.1 Anemia in chronic kidney disease; Z95.818 Presence of other cardiac implants and grafts
CPT/HCPCS: 36415; 74176; 80053; 83690; 85025; 93005; 99284

== ENCOUNTER 2024-02-01 04:02 | Inpatient (IN) | payer OTHER ==
[2024-02-01 04:39] LABS: Absolute Basophils 0.1 K/uL (0-0.5); Absolute Eosinophils 0.3 K/uL (0-0.5); Absolute Monocytes 0.5 K/uL (0.1-1.3); Absolute Neutrophil 5.7 K/uL (1.8-8.0); Basophils % 0.7 % (0-1.3); Eosinophils % 3.7 % (0-4.4); Hematocrit 28.2 % (39.6-49.0); Hemoglobin 9.4 g/dL (13.6-17.9); Lymphocytes % 13.4 % (15.3-44.8); MCH 27.7 pg (27.0-35.0); MCHC 33.4 g/dL (32.0-36.0); MPV 8.1 fL (7.6-11.3); Monocytes % 6.1 % (3.3-12.3); Neutrophils % 76.1 % (41.7-73.7); Platelets 208 thou/uL (152-406); RBC Red Blood Cell Count 3.39 M/uL (4.33-5.43); Red Cell Distribution Width 18.3 % (12.1-15.2)
[2024-02-01 04:45] LABS: PT Prothrombin Time 12.1 SECONDS (9.5-12.5); PTT, Activated Partial Thromb 36.1 SECONDS (24.3-36.9); Protime INR 1.1
[2024-02-01 04:56] LABS: ALT/SGPT 24 U/L (16-61); AST/SGOT 14 U/L (15-37); Albumin 3.6 g/dL (3.4-5.0); Albumin/Globulin Ratio 0.9 (1.1-1.8); Alkaline Phosphatase 145 U/L (45-117); Anion Gap 9.4 mEq/L (5.0-15.0); BUN Blood Urea Nitrogen 56 mg/dL (7-18); Bicarbonate 17 mEq/L (21-32); Bilirubin Total 0.4 mg/dL (0.2-1.0); Creatine Phosphokinase 174 U/L (39-308); Globulin 3.8 g/dL (2.3-3.5); Glomerular Filtration Rate 21 ml/min (=/>90); Glucose Level 111 mg/dL (74-106); Lipase 69 U/L (13-75); Magnesium 2.1 mg/dL (1.6-2.4); NT PRO-BNP 9469 pg/mL (<125); Potassium 4.4 mEq/L (3.5-5.1); Protein, Total 7.4 g/dL (6.4-8.2); Sodium Level 139 mEq/L (136-145)
[2024-02-01 05:00] LABS: Bilirubin Direct < 0.2 mg/dL (0-0.2); Bilirubin Indirect, Calculated 0.2 mg/dL (0.2-0.8); C-Reactive Protein < 2.90 mg/L (<3.00)
[2024-02-01] MEDS ORDERED: HYDRALAZINE HCL 20 MG/ML VIAL ONE (05:25)
[2024-02-01] MEDS ORDERED: FUROSEMIDE 40 MG/4 ML VIAL ONE ×2 (05:26→07:45)
--- NOTE | 2024-02-01 05:41 | ER ---
Nurse's Notes [facility] Name: Sylvain Veronica Age: 73 yrs Sex: Male : 1950 Arrival Date: 02/01/2024 Time: 04:02 Bed 7 Private MD: Diagnosis: Unstable angina;NSTEMI Presentation: 01/31 04:28 Chief complaint: Patient states: I had a heart stent placed 2 weeks ago. Tonight I woke jb4 up about an hour ago with SOB. Coronavirus screen: At this time, the client does not indicate any symptoms associated with coronavirus-19. Ebola Screen: No symptoms or risks identified at this time. Initial Sepsis Screen: Does the patient meet any 2 criteria? No. Patient's initial sepsis screen is negative. Does the patient have a suspected source of infection? No. Patient's initial sepsis screen is negative. Risk Assessment: Do you want to hurt yourself or someone else? Patient reports no desire to harm self or others. Onset of symptoms was February 01, 2024. Transition of care: patient was not received from another setting of care. 04:28 Method Of Arrival: Wheelchair jb4 04:28 Acuity: JACKIE 2 jb4 Historical: - Allergies: 04:30 No Known Allergies; jb4 - Home Meds: 05:35 Furosemide Oral [Active]; Coreg Oral [Active]; Brilinta oral [Active]; kb3 - PMHx: 04:30 Congestive heart failure; Systolic; Diabetes - IDDM; Hypertensive disorder; kidney jb4 disease; CKD 3; - PSHx: 04:30 Appendectomy; cardiac stents; Cholecystectomy; jb4 - Immunization history:: Adult Immunizations. - Infectious Disease History:: Denies. - Social history:: Smoking status: Patient denies any tobacco usage or history of. - Family history:: not pertinent. Screenin:30 [facility] ED Fall Risk Assessment (Adult) History of falling in the last 3 months, jb4 including since admission No falls in past 3 months (0 pts) Confusion or Disorientation No (0 pts) Intoxicated or Sedated No (0 pts) Impaired Gait No (0 pts) Mobility Assist Device Used No (0 pt) Altered Elimination Yes (1 pt) Score/Fall Risk Level 0 - 2 = Low Risk Oriented to surroundings, Maintained a safe environment. Abuse screen: Denies threats or abuse. Nutritional screening: No deficits noted. Tuberculosis screening: No symptoms or risk factors identified. Assessment: 04:30 General: Appears in no apparent distress. comfortable, Behavior is calm, cooperative, jb4 appropriate for age. Pain: Denies pain. Neuro: Level of Consciousness is awake, alert, obeys commands, Oriented to person, place, time, situation. Cardiovascular: Patient's skin is warm and dry. Rhythm is sinus tachycardia. Respiratory: Airway is patent Respiratory effort is even, labored, Respiratory pattern is symmetrical, tachypnea. GI: No signs and/or symptoms were reported involving the gastrointestinal system. : No signs and/or symptoms were reported regarding the genitourinary system. EENT: No signs and/or symptoms were reported regarding the EENT system. Derm: Skin is intact, Skin is pink, warm \T\ dry. Musculoskeletal: Circulation, motion, and sensation intact. Range of motion: intact in all extremities. 05:13 Reassessment: Patient appears in no apparent distress at this time. Patient and/or jb4 family updated on plan of care and expected duration. Pain level reassessed. Pt remains A\T\Ox4 with labored respirations. 06:00 Reassessment: Pt become notably more short of breath upon exertion. Hospitalist at the [facility] bedside. Pt placed on 1L NC. See MAR for additional orders. Vital Signs: 04:28 BP 190 / 104; Pulse 106; Resp 24; Temp 97.2(TE); Pulse Ox 100% on R/A; Weight 72.57 kg jb4 (R); Height 5 ft. 10 in. (R); Pain 0/10; 05:00 BP 198 / 96; Pulse 106; Resp 16; Pulse Ox 100% on R/A; jb4 06:00 BP 179 / 95; Pulse 101; Resp 17; Pulse Ox 100% on 1 lpm NC; Weight 81.7 kg (M); jb4 06:20 BP 176 / 86; Pulse 105; Resp 15; Pulse Ox 100% on 1 lpm NC; jb4 06:25 BP 178 / 90; Pulse 103; Resp 24; Pulse Ox 100% on 1 lpm NC; jb4 06:30 BP 178 / 90; Pulse 101; Resp 24; Pulse Ox 100% on 1 lpm NC; jb4 06:35 BP 168 / 98; Pulse 92; Resp 22; Pulse Ox 100% on 1 lpm NC; jb4 06:45 BP 133 / 82; Pulse 81; Resp 20; Pulse Ox 100% on 1 lpm NC; jb4 04:28 Body Mass Index 22.96 (81.70 kg, 177.8 cm) jb4 04:28 Pain Scale: Adult jb4 ED Course: 04:04 Patient arrived in ED. jj6 04:06 Wai Harper, RN is Primary Nurse. jb4 04:19 Dashawn Rojas MD is Attending Physician. sp4 04:30 Triage completed. jb4 04:30 Arm band placed on right wrist. jb4 04:30 Patient has correct armband on for positive identification. Bed in low position. Call [facility] light in reach. Side rails up X 1. Provided Education on: Plan of care. 04:30 No provider procedures requiring assistance completed. Missed attempt(s): 18 gauge in jb4 right forearm. 20 gauge in right forearm. Bleeding controlled, band aid applied, catheter tip intact. 04:31 Inserted saline lock: 20 gauge in left forearm, using aseptic technique. Blood lg3 collected. 04:36 XRAY CXR (1 view) In Process Unspecified. EDMS 05:40 Delfina Nuñez MD is Hospitalizing Provider. sp4 05:58 Inserted saline lock: 22 gauge in right antecubital area, using aseptic technique. rv1 06:03 Missed attempt(s): 20 gauge in right forearm. Bleeding controlled, band aid applied, rv1 catheter tip intact. 07:00 Patient admitted, IV remains in place. aa5 Administered Medications: 05:30 Drug: hydrALAZINE IVP 10 mg IVP once Route: IVP; Site: left forearm; jb4 05:30 Drug: Furosemide IVP 40 mg IVP once; give over 2 minutes Route: IVP; Site: left forearm;jb4 06:07 Drug: HEParin IV 5000 units IV at bolus once {Co-Signature: lg3 (Kathy Perez RN).} jb4 Route: IV; Rate: bolus; Site: left forearm; 06:07 Drug: Heparin (DE Drip) 12 units/kg/[place] - ([place] [address] units, D5W IV 500 ml) IV at jb4 calculated rate Per protocol; Max initial rate 1000 units/hr {Co-Signature: lg3 (Kathy Perez RN).} Route: IV; Rate: calculated rate; Site: left forearm; 06:18 Drug: Nitro Drip 5 mcg/min - (Nitroglycerin IV 50 mg, D5W IV 250 ml) IV at 5 mcg/min jb4 See Administration Instructions; Recommended max rate 400 mcg/min; Titrate 5 to 20 mcg/min as often as every 5 minutes to achieve goal; Goal parameter SBP less than 160 bpm; Use low-sorbing IV tubing. {Note: Started at 2.5 mcg/min per hospitalist..} Route: IV; Rate: 2.5 mcg/min; Site: right antecubital; 06:20 Follow up: Rate change 5 mcg/min jb4 06:30 Follow up: Rate change 10 mcg/min jb4 06:35 Follow up: Rate change 15 mcg/min jb4 06:47 Follow up: Rate change 12.5 mcg/min jb4 Medication: 04:30 VIS not applicable for this client. jb4 Outcome: 05:41 Decision to Hospitalize by Provider. sp4 07:00 Admitted to ER Hold. Please see [facility] for further documentation. aa5 07:00 Condition: stable 07:00 Instructed on the need for admit, Demonstrated understanding of instructions, 14:56 Patient left the ED. aa5 Signatures: Dispatcher [employer] EDMS Meggan Yang RN CHUCK aa5 Wai Harper RN CHUCK jb4 Kathy Perez RN RN lg3 Jeanne Restrepoj6 Veronique Lazaro, RN RN Ita Deal1 Dashawn Rojas MD MD sp4 Kathy Perez RN lg3 Corrections: (The following items were deleted from the chart) 06:28 05:13 Reassessment: Patient appears in no apparent distress at this time. Patient jb4 and/or family updated on plan of care and expected duration. Pain level reassessed. Patient is alert, oriented x 3, equal unlabored respirations, skin warm/dry/pink. jb4 06:25 Rate change 5 mcg/min jb4 jb4 29 06:00 BP 179 / 95; Pulse 101bpm; Resp 17bpm; Pulse Ox 100% 2 lpm Nasal Cannula; jb4 jb4 06:25 BP 176 / 86; Pulse 105bpm; Resp 15bpm; Pulse Ox 100% 2 lpm Nasal Cannula; jb4 jb4 06:00 BP 179 / 95; Pulse 101bpm; Resp 17bpm; Pulse Ox 100% 1 lpm Nasal Cannula; jb4 jb4
--- NOTE | 2024-02-01 05:41 | EDPHYS ---
Physician Documentation [facility] Name: Sylvain Veronica Age: 73 yrs Sex: Male : 1950 Arrival Date: 02/01/2024 Time: 04:02 Bed 7 Private MD: ED Physician Dashawn Rojas HPI: 01/31 04:19 This 73 yrs old Male presents to ER via Unassigned with complaints of sp4 Shortness Of Breath, Cough, 2 WKS POST OP FOR STINT. 06:01 73-year-old male with history of pleural effusion, CHF, CKD stage III, hypertension sp4 diabetes hyperlipidemia history of recent stent recent admission 01/16/2024 for acute coronary artery syndrome, presents with worsening shortness of breath and chest discomfort.. 06:01 There is a list of medications aspirin 81 daily, atorvastatin 40 daily, furosemide 20 sp4 daily, Brilinta 90 mg p.o. twice daily, Coreg 3.125 p.o. twice daily. Historical: - Allergies: 04:30 No Known Allergies; jb4 - Home Meds: 05:35 Furosemide Oral [Active]; Coreg Oral [Active]; Brilinta oral [Active]; kb3 - PMHx: 04:30 Congestive heart failure; Systolic; Diabetes - IDDM; Hypertensive disorder; kidney jb4 disease; CKD 3; - PSHx: 04:30 Appendectomy; cardiac stents; Cholecystectomy; jb4 - Immunization history:: Adult Immunizations. - Infectious Disease History:: Denies. - Social history:: Smoking status: Patient denies any tobacco usage or history of. - Family history:: not pertinent. ROS: 06:01 Constitutional: Negative for fever, chills, and weight loss, Cardiovascular: Positive sp4 chest pain positive dyspnea 06:01 All other systems are negative, Exam: 06:01 Constitutional: This is a well developed, well nourished patient who is awake, alert, sp4 ill-appearing, dyspneic, hypertensive, tachycardic Head/Face: Normocephalic, atraumatic. Eyes: Pupils equal round and reactive to light, extra-ocular motions intact. Lids and lashes normal. Conjunctiva and sclera are not injected. Cornea within normal limits. Periorbital areas with no swelling, redness, or edema. ENT: Nares patent. No nasal discharge, no septal abnormalities noted. Tympanic membranes are normal and external auditory canals are clear. Oropharynx with no redness, swelling, or masses, exudates, or evidence of obstruction, uvula midline. Mucous membranes moist. Neck: Trachea midline, no thyromegaly or masses palpated, and no cervical lymphadenopathy. Supple, full range of motion without nuchal rigidity, or vertebral point tenderness. Positive jugular venous distention Chest/axilla: Normal chest wall appearance and motion. Nontender with no deformity. No lesions are appreciated. Cardiovascular: Regular rate and rhythm with a normal S1 and S2. No gallops, murmurs, or rubs. Normal PMI, positive jugular venous distention no pulse deficits. Respiratory: Lungs have equal breath sounds bilaterally, clear to auscultation and percussion. No rales, rhonchi or wheezes noted. No increased work of breathing, no retractions or nasal flaring. Abdomen/GI: Soft, with normal bowel sounds. No distension or tympany. No guarding or rebound. No evidence of tenderness throughout. Back: No spinal tenderness. No costovertebral tenderness. Skin: Warm, dry with normal turgor. Normal color with no rashes, no lesions, and no evidence of cellulitis. MS/ Extremity: Pulses equal, no cyanosis. Neurovascular intact. Full, normal range of motion. Neuro: Awake and alert, GCS 15, oriented to person, place, time, and situation. Cranial nerves II-XII grossly intact. Motor strength 5/5 in all extremities. Sensory grossly intact. Psych: Awake, alert, with orientation to person, place and time. Behavior, mood, and affect are within normal limits 06:01 ECG was reviewed by the Attending Physician. Vital Signs: 04:28 BP 190 / 104; Pulse 106; Resp 24; Temp 97.2(TE); Pulse Ox 100% on R/A; Weight 72.57 kg jb4 (R); Height 5 ft. 10 in. (R); Pain 0/10; 05:00 BP 198 / 96; Pulse 106; Resp 16; Pulse Ox 100% on R/A; jb4 06:00 BP 179 / 95; Pulse 101; Resp 17; Pulse Ox 100% on 1 lpm NC; Weight 81.7 kg (M); jb4 06:20 BP 176 / 86; Pulse 105; Resp 15; Pulse Ox 100% on 1 lpm NC; jb4 06:25 BP 178 / 90; Pulse 103; Resp 24; Pulse Ox 100% on 1 lpm NC; jb4 06:30 BP 178 / 90; Pulse 101; Resp 24; Pulse Ox 100% on 1 lpm NC; jb4 06:35 BP 168 / 98; Pulse 92; Resp 22; Pulse Ox 100% on 1 lpm NC; jb4 06:45 BP 133 / 82; Pulse 81; Resp 20; Pulse Ox 100% on 1 lpm NC; jb4 04:28 Body Mass Index 22.96 (81.70 kg, 177.8 cm) jb4 04:28 Pain Scale: Adult jb4 MDM: 04:20 Patient medically screened. sp4 05:30 ED course: Old record review - Findings: 01/17/2024 1. Left main is normal. 2. LAD, sp4 proximal to mid stent that is patent with diffuse 30% mid stent ISR, distal mild LI. 3. Left circ, mild LI, gives large OM that got mid 40% to 50% disease, then mild LI. 4. RCA, dominant, proximal 70% disease just at the proximal portions of the mid RCA stent. So, PCI was done with Synergy 3.0 x 20 mm drug-eluting stent, which overlapped with the mid RCA stent that was patent. Distal mild LI. 5. RPDA, RPLV, mild LI. Right Heart Catheterization Findings: 1. Right atrial pressure is 5 mmHg. 2. RV is 35/3. 3. PA pressure is 36/15 with mean of 22. 4. Pulmonary capillary wedge pressure is 10. 5. Cardiac output is 6.18, average by thermal. 6. LVEDP is 20 mmHg. Assessment And Plan: 1. Significant proximal RCA disease, PCI done with Synergy 3.0 x 20 mm drug-eluting stent that was overlapped with mid RCA stent. 2. Awni-jm-[id number] OM disease. 3. Mild mid LAD ISR. 4. Normal filling pressures and normal cardiac output. Plan: 1. Aspirin 81 mg daily for life, aspirin 325 x1 was given in the laborer drying department. 2. Brilinta 180 x1 was given in the laborer drying department, continue Brilinta 90 mg p.o. b.i.d. for 12 months. BRAY/NEYDA Voice ID: [id number] Report ID: [id number]. 06:06 ED course: EXAMINATION: XR CHEST 1 VIEW INDICATION: Male, 73 years old, CONGESTION sp4 TECHNIQUE: 1 view COMPARISON(S): 01/14/2024 FINDINGS: SUPPORT DEVICES: Overlying leads. LUNGS/PLEURA: Perihilar interstitial prominence. No definite pleural effusion. No consolidation or pneumothorax. HEART/MEDIASTINUM: Enlarged heart size with central pulmonary vascular prominence. OTHER: No acute osseous findings. IMPRESSION: Heart failure pattern without significant change from prior. . 06:06 Differential diagnosis: Anemia asthma, Bronchitis CHF exacerbation, Chronic Obstructive sp4 Pulmonary Disease Myocardial Infarction. Data reviewed: vital signs, nurses notes, old medical records, lab test result(s), EKG, radiologic studies, plain films. Consideration of Admission/Observation Patient was admitted/placed on observation. Escalation of care including admission/observation considered. Management of patient was discussed with the following: Hospitalist: Hospital admission team.. 01/31 04:19 Order name: BMP; Complete Time: 05:12 sp4 01/31 04:19 Order name: CBC with Diff; Complete Time: 05:12 sp4 01/31 04:19 Order name: CPK; Complete Time: 05:12 sp4 01/31 04:19 Order name: Hepatic Function; Complete Time: 05:12 sp4 01/31 04:19 Order name: Lipase; Complete Time: 05:12 sp4 01/31 04:19 Order name: Magnesium; Complete Time: 05:12 sp4 01/31 04:19 Order name: NT PRO-BNP; Complete Time: 05:12 sp4 01/31 04:19 Order name: PT-INR; Complete Time: 05:12 sp4 01/31 04:19 Order name: Ptt, Activated; Complete Time: 05:12 sp4 01/31 04:19 Order name: Troponin HS; Complete Time: 05:12 sp4 01/31 04:20 Order name: CRP; Complete Time: 05:12 sp4 01/31 06:06 Order name: CBC with Automated Diff EDMS 01/31 06:06 Order name: PTT, Activated Partial Thromb EDMS 01/31 06:06 Order name: Lipid Profile EDMS 01/31 06:06 Order name: Lipid Profile EDMS 01/31 06:06 Order name: Troponin High Sensitivity EDMS 01/31 06:06 Order name: Troponin High Sensitivity EDID 01/31 06:06 Order name: Troponin High Sensitivity EDMS 01/31 06:06 Order name: Troponin High Sensitivity EDMS 01/31 07:35 Order name: Glucose, Ancillary Testing EDMS 01/31 11:25 Order name: PTT, Activated Partial Thromb EDMS 01/31 12:43 Order name: Glucose, Ancillary Testing EDID 01/31 04:19 Order name: XRAY CXR (1 view) sp4 01/31 04:19 Order name: EKG; Complete Time: 04:20 sp4 01/31 06:06 Order name: CONS Physician Consult EDMS 01/31 04:19 Order name: Cardiac monitoring; Complete Time: 04:33 sp4 01/31 04:19 Order name: EKG - Nurse/Tech; Complete Time: 04:33 sp4 01/31 04:19 Order name: IV Saline Lock; Complete Time: 04:33 sp4 01/31 04:19 Order name: Labs collected and sent; Complete Time: 04:33 sp4 01/31 04:19 Order name: O2 Per Protocol; Complete Time: 04:33 sp4 01/31 04:19 Order name: O2 Sat Monitoring; Complete Time: 04:33 sp4 EC:01 Rate is 110 beats/min. Rhythm is regular, Sinus tachycardia. QRS [place] is Normal. [place] sp4 interval is normal. QRS interval is normal. QT interval is normal. No Q waves. T waves are Normal. No ST changes noted. Clinical impression: No evidence of ischemia. Interpreted by me. Reviewed by me. Administered Medications: 05:30 Drug: hydrALAZINE IVP 10 mg IVP once Route: IVP; Site: left forearm; jb4 05:30 Drug: Furosemide IVP 40 mg IVP once; give over 2 minutes Route: IVP; Site: left forearm;jb4 06:07 Drug: HEParin IV 5000 units IV at bolus once {Co-Signature: lg3 (Kathy Perez RN).} jb4 Route: IV; Rate: bolus; Site: left forearm; 06:07 Drug: Heparin ([place] Drip) 12 units/kg/[place] - ([place] [address] units, D5W IV 500 ml) IV at jb4 calculated rate Per protocol; Max initial rate 1000 units/hr {Co-Signature: lg3 (Kathy Perez RN).} Route: IV; Rate: calculated rate; Site: left forearm; 06:18 Drug: Nitro Drip 5 mcg/min - (Nitroglycerin IV 50 mg, D5W IV 250 ml) IV at 5 mcg/min jb4 See Administration Instructions; Recommended max rate 400 mcg/min; Titrate 5 to 20 mcg/min as often as every 5 minutes to achieve goal; Goal parameter SBP less than 160 bpm; Use low-sorbing IV tubing. {Note: Started at 2.5 mcg/min per hospitalist..} Route: IV; Rate: 2.5 mcg/min; Site: right antecubital; 06:20 Follow up: Rate change 5 mcg/min jb4 06:30 Follow up: Rate change 10 mcg/min jb4 06:35 Follow up: Rate change 15 mcg/min jb4 06:47 Follow up: Rate change 12.5 mcg/min jb4 Disposition: 06:07 Critical Care:. sp4 Disposition Summary: 02/01/24 05:41 Hospitalization Ordered Notes: Hospitalization Status: Inpatient Admission sp4 Provider: Delfina Nuñez spMirza Condition: Stable sp4 Problem: new sp4 Symptoms: have improved sp4 Bed/Room Type: Standard sp4 Location: Intensive Care Unit(02/01/24 14:01) [facility] Room Assignment: 1-(02/01/24 14:01) [facility] Diagnosis - Unstable angina sp4 - NSTEMI sp4 Forms: - Medication Reconciliation Form sp4 - SBAR form sp4 - Leadership Thank You Letter sp4 Critical care time excluding procedures: 06:07 Critical care time: Bedside Care: 36 minutes, Consultation: 12 minutes, Family sp4 Intervention: 12 minutes. Total time: 60 minutes Signatures: Dispatcher [employer] EDMS Wai Harper RN RN jb4 Jose Juan Crockett RN CHUCK keating1 Kathy Perez RN RN lg3 Veronique Lazaro, Dashawn Fitzgerald RN, MD MD sp4 Kathy Perez RN lg3 Corrections: (The following items were deleted from the chart) 04:20 04:20 BASIC METABOLIC PANEL+C.LAB.BRZ ordered. EDMS EDMS 04:20 04:20 CBC+H.LAB.BRZ ordered. EDMS EDMS 04:20 04:20 CREATINE PHOSPHOKINASE+C.LAB.BRZ ordered. EDMS EDMS 04:20 04:20 HEPATIC FUNCTION+C.LAB.BRZ ordered. EDMS EDMS 04:20 04:20 LIPASE+C.LAB.BRZ ordered. EDMS EDMS 04:20 04:20 MAGNESIUM+C.LAB.BRZ ordered. EDMS EDMS 04:20 04:20 PROBNP+C.LAB.BRZ ordered. EDMS EDMS 04:20 04:20 PROTIME (+INR)+COAG.LAB.BRZ ordered. EDMS EDMS 04:20 04:20 PTT, ACTIVATED+COAG.LAB.BRZ ordered. EDMS EDMS 04:20 04:20 Troponin High Sensitivity+C.LAB.BRZ ordered. EDMS EDMS 06:50 05:41 Telemetry/MedSurg (Inpatient) sp4 lg3 06:50 05:41 sp4 lg3 14:01 06:50 [facility] ER HOLD lg3 ja1 14:01 06:50 ERHOLD- lg3 ja1
[2024-02-01] MEDS ORDERED: HEPARIN 5000 UNIT/ML 1 ML VIAL ONE (05:53)
[2024-02-01] MEDS ORDERED: NITROGLYCERIN/D5W 50 MG/250 ML BTL IV ONE (05:54)
[2024-02-01] MEDS ORDERED: HEPARIN/D5W 25,000 UNIT/500 ML BAG IV ONE (05:54)
[2024-02-01] MEDS ORDERED: MORPHINE 4 MG/ML SYR IV PRN (05:55)
[2024-02-01] MEDS ORDERED: NITROGLYCERIN/D5W 50 MG/250 ML BTL IV SCH (06:00)
--- NOTE | 2024-02-01 06:52 | P.HP ---
Certification for Inpatient Patient admitted to: Inpatient With expected LOS: >2 Midnights <Phoebe Dolan - Last Filed: 02/01/24 07:35> Patient History Date of Service: 02/01/24 Home medications list reviewed: Yes - Past Medical/Surgical History Diabetic: Yes -: Diabetes mellitus type 2insulin-dependent -: Hypertension -: Chronic systolic CHF with EF=40% -: CAD -: CKD III -: Cholecystectomy -: Cardiac catheterization: 2 stents -: appy Psychosocial/ Personal History: Patient is . Lives at home. - Family History Father -: Diabetes Mother -: Diabetes - Social History Smoking Status: Unknown if ever smoked Alcohol use: Yes CD- Drugs: No Caffeine use: Yes Place of Residence: Home <Phoebe Dolan - Last Filed: 02/01/24 07:35> Date of Service: 02/01/24 <Delfina Nuñez - Last Filed: 02/01/24 15:00> Allergies No Known Allergies Allergy (Verified 12/12/23 13:49) Home Medications: Aspirin [Aspirin EC] 81 mg PO DAILY #30 tab 11/13/23 Atorvastatin Calcium [Lipitor] 40 mg PO BEDTIME #30 tab 11/13/23 Furosemide [Lasix] 20 mg PO DAILY #90 tab 01/17/24 Ticagrelor [Brilinta*] 90 mg PO BID #180 tab 01/17/24 carvediloL [Coreg] 3.125 mg PO BID #180 tab 01/17/24 Review of Systems 10-point ROS is otherwise unremarkable General: Malaise Respiratory: Shortness of Breath, SOB with Excertion Cardiovascular: Chest Pain <Phoebe Dolan - Last Filed: 02/01/24 07:35> Physical Examination - Physical Exam General: Alert, Mild distress HEENT: Atraumatic, Normocephalic Neck: Supple Respiratory: Diminished, Crackles/rales, Other (increased work of breathing) Cardiovascular: Regular rate/rhythm (tachycardic) Capillary refill: <2 Seconds Gastrointestinal: Soft and benign Musculoskeletal: No clubbing Integumentary: No rashes Neurological: Normal speech, Normal tone Lymphatics: No axilla or inguinal lymphadenopathy External genitalia: Deferred Rectal: Deferred - Studies Laboratory Data (last 24 hrs) 02/01/24 02/01/24 02/01/24 04:30 04:30 04:30 WBC 7.50 Hgb 9.4 L Hct 28.2 L Plt Count 208 PT 12.1 INR 1.10 APTT 36.1 Sodium 139 Potassium 4.4 BUN 56 H Creatinine 3.10 H Glucose 111 H Magnesium 2.1 Total Bilirubin 0.4 AST 14 L ALT 24 Alkaline Phosphatase 145 H Lipase 69 <Phoebe Dolan - Last Filed: 02/01/24 07:35> - Studies Laboratory Data (last 24 hrs) 02/01/24 02/01/24 02/01/24 04:30 04:30 04:30 WBC 7.50 Hgb 9.4 L Hct 28.2 L Plt Count 208 PT 12.1 INR 1.10 APTT 36.1 Sodium 139 Potassium 4.4 BUN 56 H Creatinine 3.10 H Glucose 111 H Magnesium 2.1 Total Bilirubin 0.4 AST 14 L ALT 24 Alkaline Phosphatase 145 H Lipase 69 <Delfina Nuñez C - Last Filed: 02/01/24 15:00> Assessment and Plan - Plan ACS with HFrEF s/p LHC/RHC with PCI 01/17/24 ASA EC 81mg po daily Heparin drip Brilinta 90mg po BID - changed to Plavix 75mg daily post 300mg load NTG drip Morphine Oxygen Consult Dr. Peralta - Dr. Peralta saw pt in ED at 0700 HTN NTG drip for now Coreg 3.125mg BID DM FSBS q6h with SSI CKD monitor and trend Lasix 20mg IV BID HLD Atorvastatin GI prophylaxis Protonix - Advance Directives Does patient have a Living Will: No Does patient have a Durable POA for Healthcare: No <Phoebe Dolan - Last Filed: 02/01/24 07:35> Physician Review Additional Text: Pt seen and examined. I agree with the note by the DRAPERY INSPECTOR. Pt is a 73 yo male with past medical history of DM II, Htn, CHF, and CKD who presents with cough and SOB. Of note had stent placement about 2 weeks ago and he was discharged with b rilinta and aspirin. Pt complained of sleeping while sitting up. On admission, Cardiology changed brilinta to Plavix. Lab studies show wbc 7.5, Hgb 9.4, K 4.4, K 3.1 and BUN 56. At bedside, pt is in NAD. A/P: CHF exacerbation: Will continue Lasix 40mg iv BID, coreg and nitroglycern drip for 24hrs. Elevated troponin: Switched brilinta to Plavix. Will continue aspirin. Recent stent placement to the RCA. Htn Continue home med CKD stage 3: Cr is 3.1. Will avoid nephrotoxins and monitor renal function. DVT ppx: SCD Code: full <Delfina Nuñez - Last Filed: 02/01/24 15:00>
[2024-02-01] MEDS: HEPARIN 5000 UNIT/ML 1 ML VIAL IV ONE (06:54)
[2024-02-01] MEDS ORDERED: SODIUM CHLORIDE 0.9% 10ML INJ IV PRN (07:37)
[2024-02-01] MEDS ORDERED: PANTOPRAZOLE 40 MG INJ ONE (07:43)
[2024-02-01] MEDS ORDERED: CLOPIDOGREL 75 MG TABLET ONE (07:44)
[2024-02-01] MEDS ORDERED: ASPIRIN EC 81 MG TAB PO ONE (07:45)
[2024-02-01] MEDS: CLOPIDOGREL 75 MG TABLET PO ONE (07:58)
--- NOTE | 2024-02-01 08:53 | P.CNS ---
Date of Consult: 02/01/24 Chief Complaint: SOB, Abdominal pain History of Present Illness: Patient with PMH of CAD s/p recent PCI RCA, systolic heart failure, presented with SOB and abdominal pain, that has been going for 2 weeks, got worse recently, he also report lower extremities swelling and abdominal pain/bloating, denies having any chest pain, no palpitations, no syncope. Allergies No Known Allergies Allergy (Verified 12/12/23 13:49) Home Medications: Aspirin [Aspirin EC] 81 mg PO DAILY #30 tab 11/13/23 Atorvastatin Calcium [Lipitor] 40 mg PO BEDTIME #30 tab 11/13/23 Furosemide [Lasix] 20 mg PO DAILY #90 tab 01/17/24 Ticagrelor [Brilinta*] 90 mg PO BID #180 tab 01/17/24 carvediloL [Coreg] 3.125 mg PO BID #180 tab 01/17/24 - Past Medical/Surgical History Diabetic: Yes -: Diabetes mellitus type 2insulin-dependent -: Hypertension -: Chronic systolic CHF with EF=40% -: CAD -: CKD III -: Cholecystectomy -: Cardiac catheterization: 2 stents -: appy Psychosocial/ Personal History: Patient is . Lives at home. - Family History Father Medical History: Diabetes Mother Medical History: Diabetes - Social History Smoking Status: Former smoker Alcohol use: Yes CD- Drugs: No Caffeine use: Yes Place of Residence: Home Review of Systems 10-point ROS is otherwise unremarkable Physical Examination General: Alert, In no apparent distress HEENT: Atraumatic, PERRLA, Mucous membr. moist/pink, EOMI, Sclerae nonicteric Neck: Supple, 2+ carotid pulse no bruit, No LAD, Without JVD or thyroid abnormality Respiratory: Normal air movement, Crackles/rales Cardiovascular: Regular rate/rhythm, Normal S1 S2, Edema Gastrointestinal: Normal bowel sounds, No tenderness Musculoskeletal: No tenderness Integumentary: No rashes Neurological: Normal gait, Normal speech, Normal tone, Normal affect Lymphatics: No axilla or inguinal lymphadenopathy Laboratory Data (last 24 hrs) 02/01/24 02/01/24 02/01/24 04:30 04:30 04:30 WBC 7.50 Hgb 9.4 L Hct 28.2 L Plt Count 208 PT 12.1 INR 1.10 APTT 36.1 Sodium 139 Potassium 4.4 BUN 56 H Creatinine 3.10 H Glucose 111 H Magnesium 2.1 Total Bilirubin 0.4 AST 14 L ALT 24 Alkaline Phosphatase 145 H Lipase 69 - Problems (1) Acute on chronic systolic heart failure Current Visit: No Status: Acute Plan: Patient looks volume overloaded, NYHA 3, stage C, IV diuresis with Lasix 40 mg IV BID Continue Coreg 3.125 mg po BID can continue NTG drip for 24 hours to help with reducing afterload. no u ptitration needed. Monitor input and output and correct electrolytes (2) Elevated troponin Current Visit: No Status: Acute Plan: recent PCI of RCA ISR, with mild to moderate mid LAD and OM disease. Continue to trend Troponin agree with Heparin drip Continue ASA 81 mg daily Stop Brilinta as it might be contributing to his SOB Plavix 300 mg po x1 now then continue Plavix 75 mg daily for 12 months (3) HTN (hypertension) Current Visit: No Status: Chronic Plan: continue medications as above. Qualifiers: Hypertension type: primary hypertension Qualified Code(s): I10 - Essential (primary) hypertension
[2024-02-01] MEDS: ASPIRIN EC 81 MG TAB PO SCH (09:00)
[2024-02-01] MEDS ORDERED: TICAGRELOR 90 MG TABLET PO SCH (09:00)
[2024-02-01] MEDS: FUROSEMIDE 40 MG/4 ML VIAL IV SCH (09:00)
[2024-02-01] MEDS: PANTOPRAZOLE 40 MG INJ IVP SCH (09:00)
[2024-02-01] MEDS: INSULIN REGULAR (HUMAN) 100 UNIT/ML SQ SCH (12:00)
--- NOTE | 2024-02-01 13:20 | RAD REPORT ---
EXAM DESCRIPTION: RAD - Chest Single View - 02/01/2024 4:34 am CLINICAL HISTORY: COUGH COMPARISON: None. FINDINGS: Single frontal radiograph view of the chest. Cardiomediastinal silhouette: Normal size and contour. Lungs: No consolidation, pneumothorax, or pleural effusion. Bones: No acute osseous abnormality. Upper abdomen: No abnormality identified. IMPRESSION: 1. No acute pulmonary process identified. Electronically signed by: Cristian Tavares DO 10/01/2023 11:47 PM PATIENT SERVICES TECHNICIAN M Due to temporary technical issues with the PACS/Fluency reporting system, reports are being signed by the in house radiologists without review as a courtesy to insure prompt reporting. The interpreting radiologist is fully responsible for the content of the report.
[2024-02-01] MEDS: carvediloL 3.125 MG TAB PO SCH (16:43)
[2024-02-01] MEDS: PNEUMOCOCCAL VACCINE 0.5 ML IMVAC ONE (18:00)
[2024-02-01] MEDS: ATORVASTATIN 40 MG TAB PO SCH (21:02)
[2024-02-02 05:09] LABS: Absolute Basophils 0.1 K/uL (0-0.5); Absolute Eosinophils 0.2 K/uL (0-0.5); Absolute Lymphocytes (CBC) 0.9 K/uL (0.7-4.9); Absolute Monocytes 0.7 K/uL (0.1-1.3); Absolute Neutrophil 4.4 K/uL (1.8-8.0); Basophils % 0.9 % (0-1.3); Eosinophils % 2.7 % (0-4.4); Hematocrit 28.1 % (39.6-49.0); Hemoglobin 9.6 g/dL (13.6-17.9); MCV 82.5 fL (80-100); MPV 8.2 fL (7.6-11.3); Monocytes % 10.7 % (3.3-12.3); Neutrophils % 71.7 % (41.7-73.7); Nucleated Red Blood Cells % 0.1 % (0-0); Platelets 224 thou/uL (152-406); RBC Red Blood Cell Count 3.41 M/uL (4.33-5.43); Red Cell Distribution Width 18.4 % (12.1-15.2)
[2024-02-02 05:24] LABS: ALT/SGPT 20 U/L (16-61); Albumin 3.5 g/dL (3.4-5.0); Albumin/Globulin Ratio 0.9 (1.1-1.8); Alkaline Phosphatase 118 U/L (45-117); Anion Gap 10.8 mEq/L (5.0-15.0); BUN Blood Urea Nitrogen 57 mg/dL (7-18); Bicarbonate 20 mEq/L (21-32); Bilirubin Total 0.6 mg/dL (0.2-1.0); Globulin 3.7 g/dL (2.3-3.5); Glomerular Filtration Rate 18 ml/min (=/>90); Glucose Level 102 mg/dL (74-106); Potassium 3.8 mEq/L (3.5-5.1); Protein, Total 7.2 g/dL (6.4-8.2); Sodium Level 138 mEq/L (136-145)
[2024-02-02 05:25] LABS: AST/SGOT < 10 U/L (15-37)
[2024-02-02] MEDS: CLOPIDOGREL 75 MG TABLET PO SCH (08:12)
--- NOTE | 2024-02-02 08:27 | P.PN ---
Subjective Date of Service: 02/02/24 Chief Complaint: SOB, Abdominal pain Subjective: Improving (resting comfortably, no increased work of breathing, vss. O2 at 2L via N/C) <DolanPhoebe Jorgensen - Last Filed: 02/02/24 08:22> Date of Service: 02/02/24 <Delfina Nuñez Wilton - Last Filed: 02/02/24 09:12> Review of Systems 10-point ROS is otherwise unremarkable Respiratory: As per HPI Cardiovascular: As per HPI <Phoebe Dolanlen - Last Filed: 02/02/24 08:22> Physical Examination - Vital Signs Temperature: 97.2 F Blood Pressure: 117/59 Pulse: 80 Respirations: 20 Pulse Ox (%): 99 - Physical Exam General: In no apparent distress, Other (sleeping peacefully) HEENT: Atraumatic, Normocephalic Neck: Supple Respiratory: Normal air movement Cardiovascular: Normal pulses, Regular rate/rhythm Capillary refill: <2 Seconds Gastrointestinal: Soft and benign Musculoskeletal: No clubbing, No swelling Neurological: Normal tone, Normal affect Lymphatics: No axilla or inguinal lymphadenopathy External genitalia: Deferred Rectal: Deferred <DolanPhoebe Jameel - Last Filed: 02/02/24 08:22> Assessment And Plan - Plan ACS with HFrEF s/p LHC/RHC with PCI 01/17/24 elevated trop 119, 288.4, 02/02/24 349.2 ASA EC 81mg po daily Heparin drip Brilinta 90mg po BID - changed to Plavix 75mg daily post 300mg load NTG drip 02/[address] Peralta following - Dr. Peralta saw pt in ED at 0700 HTN NTG drip for now - 02/01 stopped Coreg 3.125mg BID DM FSBS q6h with SSI CKD monitor and trend creatinine 01/31 3.1; 02/01 3.41 Lasix 40mg IV BID HLD Atorvastatin GI prophylaxis Protonix <Phoebe Dolanlen - Last Filed: 02/02/24 08:22> - Plan Pt seen and examined. I agree with the note by the CORE CARRIER. Pt is feeling better. Continue to diurese. Fluid balance is - 3301cc. Continue plavix and aspirin. Off nitroglycerin drip. Continue coreg and DM regimen. Waiting for cardiology to clear pt for discharge. <Delfina Nuñez - Last Filed: 02/02/24 09:12>
[2024-02-02] MEDS: HEPARIN/D5W 25,000 UNIT/500 ML BAG IV SCH (08:37)
--- NOTE | 2024-02-02 10:47 | P.PN ---
Subjective Date of Service: 02/02/24 Chief Complaint: SOB, Abdominal pain Subjective: Improving, Doing well Review of Systems 10-point ROS is otherwise unremarkable Physical Examination - Vital Signs Temperature: 97.2 F Blood Pressure: 125/67 Pulse: 81 Respirations: 19 Pulse Ox (%): 100 - Physical Exam General: Alert, In no apparent distress HEENT: Atraumatic, PERRLA, EOMI Neck: Supple, JVD not distended Respiratory: Clear to auscultation bilaterally, Normal air movement Cardiovascular: Regular rate/rhythm, Normal S1 S2 Gastrointestinal: Normal bowel sounds, No tenderness Musculoskeletal: No tenderness Integumentary: No rashes Neurological: Normal speech, Normal tone, Normal affect Lymphatics: No axilla or inguinal lymphadenopathy - Studies Medications List Reviewed: Yes Assessment And Plan - Current Problems (Diagnosis) (1) Acute on chronic systolic heart failure Current Visit: No Status: Acute Plan: Patient looks volume overloaded, NYHA 3, stage C, diursed well overnight and Improving IV diuresis with Lasix 40 mg IV BID Continue Coreg 3.125 mg po BID Monitor input and output and correct electrolytes (2) Elevated troponin Current Visit: No Status: Acute Plan: recent PCI of RCA ISR, with mild to moderate mid LAD and OM disease. Continue Heparin drip for 48 hours total since admission Continue ASA 81 mg daily Patient was switched from Brilinta to Plavix and he likes it better, breathing is better and less stomach upset. (3) HTN (hypertension) Current Visit: No Status: Chronic Plan: continue medications as above. Qualifiers: Hypertension type: primary hypertension Qualified Code(s): I10 - Essential (primary) hypertension
--- NOTE | 2024-02-02 11:43 | EKG ---
Test Date: 2024-02-01 Test Time: 04:14:31 Equipment Validation Specialist: RV MEASUREMENT RESULTS: Intervals: Rate: 110 VT: 182 QRSD: 90 QT: 326 QTc: 441 [place]: P: 55 VT: 182 QRS: 33 T: 73 INTERPRETIVE STATEMENTS: Sinus tachycardia Possible Anterior infarct, age undetermined Abnormal ECG Compared to ECG 01/19/2024 15:24:24 Myocardial infarct finding now present Sinus rhythm no longer present Left ventricular hypertrophy no longer present Early repolarization no longer present Electronically Signed On 02-02-24 11:43:23 CDT by Matty Peralta
[2024-02-02] MEDS: INSULIN REGULAR (HUMAN) 100 UNIT/ML SQ SCH (20:20)
[2024-02-03 05:03] LABS: Anion Gap 11.9 mEq/L (5.0-15.0); Potassium 3.9 mEq/L (3.5-5.1)
--- NOTE | 2024-02-03 07:59 | P.DS ---
Admission Date: 02/01/24 Discharge Date: 02/11/24 Disposition: ROUTINE DISCHARGE Discharge Condition: GOOD Reason for Admission: SOB, Abdominal pain Brief History of Present Illness: Pt is a 73 yo male with past medical history of DM II, Htn, CHF, and CKD who presents with cough and SOB. Of note had stent placement about 2 weeks ago and he was discharged with brilinta and aspirin. Pt complained of sleeping while sitting up. On admission, Cardiology changed brilinta to Plavix. Lab studies show wbc 7.5, Hgb 9.4, K 4.4, K 3.1 and BUN 56. At bedside, pt is in NAD. Hospital Course: Pt is a 73 yo male with past medical history of DM II, Htn, CHF, and CKD who presented with cough and SOB. Of note, had stent placement about 2 weeks ago and he was discharged with brilinta and aspirin. Pt complained of inability to lay flat on his back. He slept while sitting up. On admission, Cardiology changed brilinta to Plavix. Lab studies show wbc 7.5, Hgb 9.4, K 4.4, K 3.1, BNP 9469, troponin 119 -> 349,and BUN 56. We admitted pt in the ICU for NSTEMI and acute resp failure with hypoxia due to acute CHF exacerbation. We gave heparin drip, nitroglycerin drip, lasix 40mg iv BID and continued strict I/O and daily weight. Pt diuresed well and Cardiology cleared him for discharge. We consulted Nephrology due to SANTOS on CKD. He was advised to take plavix and aspirin for at l east 1 year. We stopped brilinta. Pt was in NAD prior to discharge. Vital Signs/Physical Exam: Temp Pulse Resp BP Pulse Ox 97.5 F 72 22 H 112/61 98 02/03/24 04:00 02/03/24 07:00 02/03/24 07:00 02/03/24 07:00 02/03/24 07:00 Laboratory Data at Discharge: WBC 6.20 thou/uL (4.3-10.9) 02/02/24 04:18 Hgb 9.6 g/dL (13.6-17.9) L 02/02/24 04:18 Hct 28.1 % (39.6-49.0) L 02/02/24 04:18 Plt Count 224 thou/uL (152-406) 02/02/24 04:18 PT 12.1 SECONDS (9.5-12.5) 02/01/24 04:30 INR 1.10 02/01/24 04:30 APTT 78.0 SECONDS (24.3-36.9) H 02/03/24 04:26 Sodium 135 mEq/L (136-145) L 02/03/24 04:26 Potassium 3.9 mEq/L (3.5-5.1) 02/03/24 04:26 BUN 73 mg/dL (7-18) H 02/03/24 04:26 Creatinine 3.93 mg/dL (0.70-1.30) H 02/03/24 04:26 Glucose 123 mg/dL (74-106) H 02/03/24 04:26 Magnesium 2.1 mg/dL (1.6-2.4) 02/01/24 04:30 Total Bilirubin 0.6 mg/dL (0.2-1.0) 02/02/24 04:18 AST < 10 U/L (15-37) L 02/02/24 04:18 ALT 20 U/L (16-61) 02/02/24 04:18 Alkaline Phosphatase 118 U/L (45-117) H 02/02/24 04:18 Triglycerides Cancelled 02/01/24 05:55 Cholesterol Cancelled 02/01/24 05:55 HDL Cholesterol Cancelled 02/01/24 05:55 Cholesterol/HDL Ratio Cancelled 02/01/24 05:55 Lipase 69 U/L (13-75) 02/01/24 04:30 Home Medications: Aspirin [Aspirin EC] 81 mg PO DAILY #30 tab 11/13/23 Atorvastatin Calcium [Lipitor] 40 mg PO BEDTIME #30 tab 11/13/23 Furosemide [Lasix*] 20 mg PO DAILY #90 tab 01/17/24 carvediloL [Coreg*] 3.125 mg PO BID #180 tab 01/17/24 Clopidogrel Bisulfate [Plavix*] 75 mg PO DAILY 90 Days #90 tab 02/03/24 Furosemide [Lasix] 40 mg PO DAILY 90 Days #90 tab 02/03/24 Pantoprazole [Protonix Tab] 40 mg PO DAILY 30 Days #30 tab 02/03/24 New Medications: Furosemide [Lasix] 40 mg PO DAILY 90 Days #90 tab Clopidogrel Bisulfate [Plavix*] 75 mg PO DAILY 90 Days #90 tab Pantoprazole [Protonix Tab] 40 mg PO DAILY 30 Days #30 tab Physician Discharge Instructions: COntinue ad nikhil activity. Take coreg, lasix, plavix and other home meds as prescribed. Stop taking brilinta. Follow up with PCP, Nephrology, and cardiology within 2 weeks. Pt is a 73 yo male with past medical history of DM II, Htn, CHF, and CKD who presented with cough and SOB. Of note, had stent placement about 2 weeks ago and he was discharged with brilinta and aspirin. Pt complained of inability to lay flat on his back. He slept while sitting up. On admission, Cardiology changed brilinta to Plavix. Lab studies show wbc 7.5, Hgb 9.4, K 4.4, K 3.1, BNP 9469, troponin 119 -> 349,and BUN 56. We admitted pt in the ICU for NSTEMI and acute resp failure with hypoxia due to acute CHF exacerbation. We gave heparin drip, nitroglycerin drip, lasix 40mg iv BID and continued strict I/O and daily weight. Pt diuresed well and Cardiology cleared him for discharge. We consulted Nephrology due to SANTOS on CKD. He was advised to take plavix and aspirin for at least 1 year. We stopped brilinta. Pt was in NAD prior to discharge. Plan to discharge home with daughter, patient will follow-up with cardiology after Follow up with nephrology in 3 wks Assessment Acute on chronic heart failure 01/31 Elevated troponin was evaluated by cardiology, had medication changed from Brilinta to Plavix weaned off of heparin drip, History of diabetes resume home meds History of hypertension, resume antilipid, Diabetes, resume home Accu-Cheks, blood glucose monitoring, diabetic diet, resume home diabetic medication Continue home medicines as previously prescribed GOAL: Clear understanding of disease process INSTRUCTIONS: Physician Discharge Instructions: -Follow-up with PCP in 1 to 2 weeks -Please call Dr. Kemp at [phone] if any questions regarding hospital stay -Please call nursing station at [phone] if any nursing or medication questions -Return to the emergency room if symptoms worsen Diet: ADA, low sodium Activity: Fall precautions Diet: AHA Activity: Ad nikhil Followup: Rosario Wu MD [COURTESY - CAN ADMIT] - Nel Henley [Primary Care Provider] -
--- NOTE | 2024-02-03 11:43 | P.PN ---
Subjective Date of Service: 02/03/24 Chief Complaint: SOB, Abdominal pain Pt is resting comfortably in bed. He is feeling better. Cr is worsening (3.93 <- 3.44). COnsulted Nephrology. No other complaints. Will stop heparin drip. Review of Systems General: Unremarkable Eyes: Unremarkable ENT: Unremarkable Respiratory: Unremarkable Cardiovascular: Unremarkable Gastrointestinal: Unremarkable Genitourinary: Unremarkable Musculoskeletal: Unremarkable Integumentary: Unremarkable Neurological: Unremarkable Lymphatics: Unremarkable Physical Examination - Vital Signs Temperature: 97.0 F Blood Pressure: 109/60 Pulse: 81 Respirations: 22 Pulse Ox (%): 98 - Physical Exam General: Alert, In no apparent distress, Oriented x3 HEENT: Atraumatic, Normocephalic, PERRLA Neck: Supple, 2+ carotid pulse no bruit, JVD not distended Respiratory: Clear to auscultation bilaterally, Normal air movement, Diminished Cardiovascular: No edema, Normal pulses, Regular rate/rhythm, Normal S1 S2 Capillary refill: <2 Seconds Gastrointestinal: Normal bowel sounds, Soft and benign, Non-distended Musculoskeletal: No clubbing, No swelling, No contractures Integumentary: No rashes, No breakdown, No significant lesion Neurological: Normal speech, Normal strength at 5/5 x4 extr, Normal tone, Sensation intact Lymphatics: No axilla or inguinal lymphadenopathy - Studies Medications List Reviewed: Yes Assessment And Plan - Plan NSTEMI: Pt has ACS with HFrEF. s/p LHC/RHC with PCI 01/17/24. Cardiology changed brilinta to Plavix. Will continue aspirin and atorvastatin. elevated trop 119-> 288.4-> 349.2. Off heparin drip and nitroglycerin drip. Cardiology is following. CHF exacerbation: Will continue lasix, strict I/O and daily weight. HTN: off NTG drip. Will continue coreg 3.125mg BID DM: Continue accuchek, SSI and ADA diet. Toni on CKD: Cr is trending up 3.93 <- 3.44. COnsulted Nephrology. Will get renal ultrasound. HLD: Atorvastatin GI ppx: heparin GI ppx: Protonix Dispo: Pending hospital course. Will transfer pt out of the ICU.
[2024-02-03] MEDS: FUROSEMIDE 40 MG TABLET PO ONE (14:10)
--- NOTE | 2024-02-03 15:22 | P.PN ---
Subjective Date of Service: 02/03/24 Chief Complaint: SOB, Abdominal pain Subjective: No new changes, No C/O voiced, Tolerating diet, Ambulating, Improving Review of Systems 10-point ROS is otherwise unremarkable Physical Examination - Vital Signs Temperature: 97.0 F Blood Pressure: 135/63 Pulse: 83 Respirations: 22 Pulse Ox (%): 100 - Physical Exam General: Alert, In no apparent distress HEENT: Atraumatic, PERRLA, EOMI Neck: Supple, JVD not distended Respiratory: Clear to auscultation bilaterally, Normal air movement Cardiovascular: Regular rate/rhythm, Normal S1 S2 Gastrointestinal: Normal bowel sounds, No tenderness Musculoskeletal: No tenderness Integumentary: No rashes Neurological: Normal speech, Normal tone, Normal affect Lymphatics: No axilla or inguinal lymphadenopathy - Studies Medications List Reviewed: Yes Assessment And Plan - Current Problems (Diagnosis) (1) Acute on chronic systolic heart failure Current Visit: No Status: Acute Plan: Patient looks volume overloaded, NYHA 3, stage C, switch Lasix to 40 mg po daily as patient looks better compensated and kidney function continue to worsen. Continue Coreg 3.125 mg po BID Monitor input and output and correct electrolytes (2) Elevated troponin Current Visit: No Status: Acute Plan: recent PCI of RCA ISR, with mild to moderate mid LAD and OM disease. finished 48 hours of heparin drip. Continue ASA 81 mg daily Patient was switched from Brilinta to Plavix and he likes it better, breathing is better and less stomach upset. (3) HTN (hypertension) Current Visit: No Status: Chronic Plan: continue medications as above. Qualifiers: Hypertension type: primary hypertension Qualified Code(s): I10 - Essential (primary) hypertension (4) SANTOS (acute kidney injury) Current Visit: No Status: Acute Plan: lower lasix dose as above appreciate Nephrology input.
[2024-02-03 19:16] VITALS: BMI 23.6
--- NOTE | 2024-02-03 19:41 | RAD REPORT ---
EXAM DESCRIPTION: US - Renal Ultrasound-Complete - 02/03/2024 7:30 pm CLINICAL HISTORY: [facility] COMPARISON: Abdomen Pelvis Wo Contrast dated 01/19/2024 FINDINGS: Both kidneys are normal in size, shape and echotexture. The right kidney measures 10.4 cm. No hydronephrosis, focal mass or perinephric fluid. The left kidney measures 10.2 cm. No hydronephrosis, focal mass or perinephric fluid. The urinary bladder is incompletely distended without gross abnormality seen. IMPRESSION: Unremarkable renal sonogram. No hydronephrosis.
[2024-02-04 01:21] LABS: Specific Gravity 1.016 (1.005-1.030); Sqamous Epithelial <5 /HPF (None Seen); Urine Bacteria None Seen /HPF (<20); Urine Bilirubin NEGATIVE (Negative); Urine Blood Trace (Negative); Urine Clarity Turbid (Clear); Urine Color Light-Yellow (Yellow); Urine Culture Reflex Order NOT NEEDED; Urine Glucose NEGATIVE (Negative); Urine Ketones NEGATIVE (Negative); Urine Micro Reflex YN NO BILL MICROSCOPIC; Urine Mucus Slight /HPF (None Seen); Urine Nitrite NEGATIVE (Negative); Urine Protein 2+ (Negative); Urine RBC <5 /HPF (None Seen); Urine Urobilinogen Normal (Normal); Urine WBC <5 /HPF (<5); Urine pH 5.5 (5.0-7.0)
[2024-02-04 04:24] LABS: ALT/SGPT 18 U/L (16-61); Albumin 3.6 g/dL (3.4-5.0); Albumin/Globulin Ratio 0.9 (1.1-1.8); Alkaline Phosphatase 119 U/L (45-117); Anion Gap 13.1 mEq/L (5.0-15.0); BUN Blood Urea Nitrogen 85 mg/dL (7-18); Bicarbonate 20 mEq/L (21-32); Bilirubin Total 0.3 mg/dL (0.2-1.0); Creatine Phosphokinase 96 U/L (39-308); Globulin 3.9 g/dL (2.3-3.5); Glomerular Filtration Rate 13 ml/min (=/>90); Glucose Level 109 mg/dL (74-106); Potassium 4.1 mEq/L (3.5-5.1); Protein, Total 7.5 g/dL (6.4-8.2); Sodium Level 135 mEq/L (136-145); Thyroid Stimulating Hormone 0.591 uIU/mL (0.358-3.740)
[2024-02-04 04:26] LABS: AST/SGOT < 10 U/L (15-37)
--- NOTE | 2024-02-04 05:05 | CON ---
Date of Consultation: 02/03/2024 Chief Complaint: Acute on chronic kidney injury, cardiorenal syndrome. Nephrology consultation was requested for worsening of the renal function. History Of Present Illness: The patient has multiple medical problems, including history of diabetic kidney disease; insulin-dependent diabetes mellitus; hypertension; cardiorenal syndrome with congest gilbert heart failure exacerbation, ejection fraction 40%; coronary artery disease, status post stent; ch ronic kidney disease stage 3, advancing to stage 4. The patient presented to the hospital and is adm itted to ICU. Lab work on arrival to the hospital showed BUN of 56, creatinine of 3.1. During this admission, serum creatinine level has increased and urine output did not change. The patient was david ated with diuretic during this admission for acute coronary syndrome with heart failure and systolic dysfunction. Back in December, the patient underwent PCI and Cardiology is consulted during this admissio n for management of coronary artery disease. Renal ultrasound was ordered to rule out obstructive ur opathy although the patient denies lower urinary tract symptoms. During this admission, the patient was treated with heparin drip, morphine, oxygen, nitroglycerin drip. Received Coreg and Lasix was us ed IV. Today, the patient denies chest pain, palpitation, cough. Review of Systems: General: Denies fever, chills. Eyes: Denies vision changes. Ears, Nose, Mouth, and Throat: Denies sore throat, earache. Respiratory: Denies PND, orthopnea. Cardiovascular: Denies palpitation, syncope. GI: Denies melena, hematemesis. : Denies dysuria, hematuria, incomplete voiding. Extremities: Leg edema has improved. Neurologic: Denies paresthesia. Past Medical History: Diabetes mellitus type 2, insulin dependent; hypertension; chronic systolic co ngestive heart failure, ejection fraction 40%; coronary artery disease; chronic kidney disease stage 3; cholecystectomy; cardiac catheterization/stent; appendectomy. Family History: Father, diabetes. Mother, diabetes. Social History: Former smoker. Denies alcohol. Denies drugs. Physical Examination: General: The patient is awake, alert, follows commands. Eyes: Anicteric sclerae. EOMI. Ears, Nose, Mouth, and Throat: Oral mucosa moist. No pallor. Neck: Supple. No bruits. Lungs: Diminished breath sounds at bases. Heart: S1, S2. Abdomen: Soft. Extremities: Minimal ankle edema. Diagnostic Data: WBC 7.5, hemoglobin 9.4, platelet count 208,000. Sodium 139, potassium 4.4, BUN 56 , creatinine 3.1. Blood work today showed BUN of 73, creatinine 3.93, estimated GFR 16, glucose 123, calcium 7.9, sodium 135, potassium 3.9, chloride 105, CO2 22, anion gap 11.9. Impression And Plan: 1.Acute on chronic kidney injury. Renal ultrasound was ordered to rule out obstructive uropathy. T he patient was treated with diuretic, and he presents with acute on chronic cardiorenal syndrome. Pl an is to continue diuretics. The renal ultrasound did not show obstructive uropathy. There is no ev idence of hydronephrosis. Urinalysis will be obtained to evaluate for possible abnormal urinary sedi ment. The patient has mild hyponatremia, which corresponds with fluid overload. Continue diuretic a nd dose was adjusted to prevent prerenal azotemia. 2.Hypertension. Continue blood pressure medication. 3.Renal function has declined and the patient will be evaluated with renal panel. Continue adequate hydration by mouth. 4.Diabetes mellitus. Continue insulin. EB/MODL Voice ID: [id number] Report ID: [id number]
--- NOTE | 2024-02-04 08:27 | P.PN ---
Subjective Date of Service: 02/04/24 Chief Complaint: SOB, Abdominal pain Admitted with NSTEMI, history of heart failure, cardiology change Brilinta to Plavix, Trend troponins, cardiology following, - Physical Exam General: Alert, In no apparent distress, Oriented x3 HEENT: Atraumatic, Normocephalic, PERRLA Neck: Supple, 2+ carotid pulse no bruit, JVD not distended Respiratory: Clear to auscultation bilaterally, Normal air movement, Diminished Cardiovascular: No edema, Normal pulses, Regular rate/rhythm, Normal S1 S2 Capillary refill: <2 Seconds Gastrointestinal: Normal bowel sounds, Soft and benign, Non-distended Musculoskeletal: No clubbing, No swelling, No contractures Integumentary: No rashes, No breakdown, No significant lesion Neurological: Normal speech, Normal strength at 5/5 x4 extr, Normal tone, Sensation intact Lymphatics: No axilla or inguinal lymphadenopathy Review of Systems Per HPI Physical Examination - Vital Signs Temperature: 97.7 F Blood Pressure: 108/62 Pulse: 80 Respirations: 18 Pulse Ox (%): 100 - Studies Medications List Reviewed: Yes Assessment And Plan - Plan Assessment plan NSTEMI: ACS with HFrEF. s/p LHC/RHC with PCI 01/17/24. Cardiology changed brilinta to Plavix. Will continue aspirin and atorvastatin. elevated trop 119-> 288.4-> 349.2. Off heparin drip and nitroglycerin drip. Cardiology is following. CHF exacerbation: Will continue lasix, strict I/O and daily weight. Lasix 20 mg p.o. daily Coreg 3.125 p.o. twice daily, aspirin 81 mg daily DC Brilinta switched to Plavix daily HTN: off NTG drip. Will continue coreg 3.125mg BID DM: Continue accuchek, SSI and ADA diet. Toni on CKD: Cr is trending up 3.93 <- 3.44. COnsulted Nephrology. Will get renal ultrasound. GFR 16, 13 BUN 73,85 Creatinine 3.93, 4.5 Anemia of chronic disease hemoglobin 9.49.6 HLD: Atorvastatin DVT ppx: heparin GI ppx: Protonix Dispo: Pending hospital course. Will transfer pt out of the ICU. Patient resides at home with daughter, independent Discharge Plan: Home - Code Status/Comfort Care Code Status: Full Code Critical Care: No Time Spent Managing PTS Care (In Minutes): 35
--- NOTE | 2024-02-04 08:30 | P.DS ---
Admission Date: 02/01/24 Discharge Date: 02/05/24 Disposition: ROUTINE DISCHARGE Discharge Condition: GOOD Reason for Admission: SOB, Abdominal pain Brief History of Present Illness: Pt is a 73 yo male with past medical history of DM II, Htn, CHF, and CKD who presents with cough and SOB. Of note had stent placement about 2 weeks ago and he was discharged with brilinta and aspirin. Pt complained of sleeping while sitting up. On admission, Cardiology changed brilinta to Plavix. Lab studies show wbc 7.5, Hgb 9.4, K 4.4, K 3.1 and BUN 56. At bedside, pt is in NAD. - Physical Exam General: Alert, In no apparent distress, Oriented x3 HEENT: Atraumatic, Normocephalic, PERRLA Neck: Supple, 2+ carotid pulse no bruit, JVD not distended Respiratory: Clear to auscultation bilaterally, Normal air movement, Diminished Cardiovascular: No edema, Normal pulses, Regular rate/rhythm, Normal S1 S2 Capillary refill: <2 Seconds Gastrointestinal: Normal bowel sounds, Soft and benign, Non-distended Musculoskeletal: No clubbing, No swelling, No contractures Integumentary: No rashes, No breakdown, No significant lesion Neurological: Normal speech, Normal strength at 5/5 x4 extr, Normal tone, Sensation intact Hospital Course: Pt is a 73 yo male with past medical history of DM II, Htn, CHF, and CKD who presented with cough and SOB. Of note, had stent placement about 2 weeks ago and he was discharged with brilinta and aspirin. Pt complained of inability to lay flat on his back. He slept while sitting up. On admission, Cardiology changed brilinta to Plavix. Lab studies show wbc 7.5, Hgb 9.4, K 4.4, K 3.1, BNP 9469, troponin 119 -> 349,and BUN 56. We admitted pt in the ICU for NSTEMI and acute resp failure with hypoxia due to acute CHF exacerbation. We gave heparin drip, nitroglycerin drip, lasix 40mg iv BID and continued strict I/O and daily weight. Pt diuresed well and Cardiology cleared him for discharge. We consulted Nephrology due to SANTOS on CKD. He was advised to take plavix and aspirin for at least 1 year. We stopped brilinta. Pt was in NAD prior to discharge. Plan to discharge home with daughter, patient will follow-up with cardiology after Assessment Acute on chronic heart failure 01/31 Elevated troponin was evaluated by cardiology, had medication changed from Brilinta to Plavix weaned off of heparin drip, History of diabetes resume home meds History of hypertension, resume antilipid, Diabetes, resume home Accu-Cheks, blood glucose monitoring, diabetic diet, resume home diabetic medication Continue home medicines as previously prescribed GOAL: Clear understanding of disease process INSTRUCTIONS: Physician Discharge Instructions: -Follow-up with PCP in 1 to 2 weeks -Please call Dr. Kemp at [phone] if any questions regarding hospital stay -Please call nursing station at [phone] if any nursing or medication questions -Return to the emergency room if symptoms worsen Diet: ADA, low sodium Activity: Fall precautions Vital Signs/Physical Exam: Temp Pulse Resp BP Pulse Ox 97.7 F 80 18 108/62 100 02/04/24 08:26 02/04/24 08:26 02/04/24 08:26 02/04/24 08:26 02/04/24 08:26 Laboratory Data at Discharge: WBC 6.20 thou/uL (4.3-10.9) 02/02/24 04:18 Hgb 9.6 g/dL (13.6-17.9) L 02/02/24 04:18 Hct 28.1 % (39.6-49.0) L 02/02/24 04:18 Plt Count 224 thou/uL (152-406) 02/02/24 04:18 PT 12.1 SECONDS (9.5-12.5) 02/01/24 04:30 INR 1.10 02/01/24 04:30 APTT 33.5 SECONDS (24.3-36.9) 02/04/24 03:18 Sodium 135 mEq/L (136-145) L 02/04/24 03:18 Potassium 4.1 mEq/L (3.5-5.1) 02/04/24 03:18 BUN 85 mg/dL (7-18) H 02/04/24 03:18 Creatinine 4.56 mg/dL (0.70-1.30) H 02/04/24 03:18 Glucose 109 mg/dL (74-106) H 02/04/24 03:18 Magnesium 2.1 mg/dL (1.6-2.4) 02/01/24 04:30 Total Bilirubin 0.3 mg/dL (0.2-1.0) 02/04/24 03:18 AST < 10 U/L (15-37) L 02/04/24 03:18 ALT 18 U/L (16-61) 02/04/24 03:18 Alkaline Phosphatase 119 U/L (45-117) H 02/04/24 03:18 Triglycerides Cancelled 02/01/24 05:55 Cholesterol Cancelled 02/01/24 05:55 HDL Cholesterol Cancelled 02/01/24 05:55 Cholesterol/HDL Ratio Cancelled 02/01/24 05:55 Lipase 69 U/L (13-75) 02/01/24 04:30 Home Medications: Aspirin [Aspirin EC] 81 mg PO DAILY #30 tab 11/13/23 Atorvastatin Calcium [Lipitor] 40 mg PO BEDTIME #30 tab 11/13/23 Furosemide [Lasix*] 20 mg PO DAILY #90 tab 01/17/24 carvediloL [Coreg*] 3.125 mg PO BID #180 tab 01/17/24 Clopidogrel Bisulfate [Plavix*] 75 mg PO DAILY 90 Days #90 tab 02/03/24 Furosemide [Lasix] 40 mg PO DAILY 90 Days #90 tab 02/03/24 Pantoprazole [Protonix Tab] 40 mg PO DAILY 30 Days #30 tab 02/03/24 New Medications: Furosemide [Lasix] 40 mg PO DAILY 90 Days #90 tab Clopidogrel Bisulfate [Plavix*] 75 mg PO DAILY 90 Days #90 tab Pantoprazole [Protonix Tab] 40 mg PO DAILY 30 Days #30 tab Physician Discharge Instructions: COntinue ad nikhil activity. Take coreg, lasix, plavix and other home meds as prescribed. Stop taking brilinta. Follow up with PCP, Nephrology, and cardiology within 2 weeks. Diet: AHA Activity: Ad nikhil Followup: Rosario Wu MD [COURTESY - CAN ADMIT] - Nel Henley [Primary Care Provider] - Physician Review: Patient Assessed, Agree with Above Assessment and Plan (55) Time spent managing pt's care (in minutes): 55
[2024-02-04] MEDS: FUROSEMIDE 40 MG TABLET PO SCH (08:36)
--- NOTE | 2024-02-04 11:44 | P.PN ---
Subjective Date of Service: 02/04/24 Chief Complaint: SOB, Abdominal pain Subjective: No new changes, No C/O voiced, Tolerating diet, Ambulating, Improving Review of Systems 10-point ROS is otherwise unremarkable Physical Examination - Vital Signs Temperature: 97.7 F Blood Pressure: 114/64 Pulse: 83 Respirations: 18 Pulse Ox (%): 100 - Physical Exam General: Alert, In no apparent distress HEENT: Atraumatic, PERRLA, EOMI Neck: Supple, JVD not distended Respiratory: Clear to auscultation bilaterally, Normal air movement Cardiovascular: Regular rate/rhythm, Normal S1 S2 Gastrointestinal: Normal bowel sounds, No tenderness Musculoskeletal: No tenderness Integumentary: No rashes Neurological: Normal speech, Normal tone, Normal affect Lymphatics: No axilla or inguinal lymphadenopathy - Studies Medications List Reviewed: Yes Assessment And Plan - Current Problems (Diagnosis) (1) Acute on chronic systolic heart failure Current Visit: No Status: Acute Plan: Patient looks volume overloaded, NYHA 3, stage C, switch Lasix to 20 mg daily as patient looks better compensated and kidney function continue to worsen. Continue Coreg 3.125 mg po BID Monitor input and output and correct electrolytes (2) Elevated troponin Current Visit: No Status: Acute Plan: recent PCI of RCA ISR, with mild to moderate mid LAD and OM disease. finished 48 hours of heparin drip. Continue ASA 81 mg daily Patient was switched from Brilinta to Plavix and he likes it better, breathing is better and less stomach upset. (3) HTN (hypertension) Current Visit: No Status: Chronic Plan: continue medications as above. Qualifiers: Hypertension type: primary hypertension Qualified Code(s): I10 - Essential (primary) hypertension (4) SANTOS (acute kidney injury) Current Visit: No Status: Acute Plan: lower lasix dose as above appreciate Nephrology input. Physician Review: Patient Assessed, Agree with Above Assessment and Plan (55)
[2024-02-04] MEDS: NA CHLORIDE 0.9% 1,000 ML IV SCH (12:19)
--- NOTE | 2024-02-04 18:43 | CON ---
Date of Consultation: 02/04/2024 Chief Complaint: Acute on chronic kidney injury, cardiorenal syndrome. Nephrology consultation was requested for worsening of the renal function. History Of Present Illness: The patient has multiple medical problems including history of diabetic kidney disease, proteinuria, insulin-dependent diabetes mellitus, hypertension, cardiorenal syndrome with congestive heart failure. He presented with acute on chronic systolic and diastolic congestive heart failure. He was admitted to the hospital and received IV diuretic when in ICU. Patient has no noliguric urine output. Patient had lab work done and serum creatinine level has increased during th is admission and renal function declined over the last 48 hours. Yesterday, diuretic dose was adjust ed and the patient was instructed to increase p.o. fluid intake. Today, patient is started on IV nor mal saline. The patient denies PND or orthopnea. Denies chest pain, palpitation, syncope. Physical Examination: General: Not in acute distress. Lungs: Few rhonchi. Heart: S1, S2. Abdomen: Soft. Extremities: No edema. Impression And Plan: 1.Acute on chronic kidney injury. Renal ultrasound did not show obstructive uropathy. There is no urinary retention due to prerenal azotemia secondary to diuretic. Diuretic is currently on hold. Dudley pisano will continue p.o. fluid intake. IV normal saline 50 cc/hour was started for hydration in view of acute kidney injury secondary to diuretic. Patient denies nonsteroidal antiinflammatory medicati on. Patient had urinalysis done which did not show any evidence of nephritis. There is no hematuria , no leukocyturia. 2.Hypertension. Continue blood pressure medication. 3.Renal function has declined due to diuretic effect and in setting of treatment of cardiorenal synd arthur and congestive heart failure. Continue adequate hydration by mouth. Continue low-sodium diet. 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 GRACE inhibitor, angiotensin receptor dannielle will not be used during acute kidney injury. Continue to monitor electrolytes. EB/MODL Voice ID: [id number] Report ID: [id number]
[2024-02-05 03:57] LABS: Albumin 3.4 g/dL (3.4-5.0); Anion Gap 11.7 mEq/L (5.0-15.0); Magnesium 2.3 mg/dL (1.6-2.4); Phosphorus 6.9 mg/dL (2.5-4.9); Potassium 3.7 mEq/L (3.5-5.1)
--- NOTE | 2024-02-05 13:53 | PN ---
Date of Progress Note: 02/05/2024 Subjective: The patient was admitted to the hospital with the acute kidney injury, GI bleed. The patient was treated. Apparently, his GI bleed was secondary to anticoagulation, seen by Cardiology, changed Brilinta. Patient feeling better. Kidney function stable. Objective: Vital Signs: Blood pressure 113/60, pulse of 84, afebrile. Chest: Clear to auscultation. Heart: S1, S2. Regular. Abdomen: Soft, nontender. Extremities: No edema. Neuro: Alert. No focality. No tremor. Laboratory Data: Hemoglobin 9.6, sodium 136, potassium 3.7, bicarb 21, BUN 83, creatinine 4.4, trending down. Calcium 7.3, phosphorus 6.8. Current Medications: The patient on include atorvastatin, carvedilol, pantoprazole, IV fluid. Assessment And Plan: 1. Acute kidney injury on advanced chronic kidney disease secondary to prerenal, no uremic symptoms, no hyperkalemia, no acidosis. I am going to hold IV fluid and we will monitor. 2. Hypertension, controlled, optimal. Continue current treatment. 3. Diabetes, as by Primary. 4. Congestive heart failure with cardiorenal syndrome, currently normal volume. Discontinue IV fluid. We will follow up. Time spent examining the patient ukap-[id number] reviewing data lab and the radiology placing orders and discussing the case with the patient discussing the case with the steam room attendant including hospitalist and nursing staff more than 55 minutes EFRAIN Voice ID: [id number] Report ID: [id number] DRU
[2024-02-06 07:26] LABS: Albumin 3.4 g/dL (3.4-5.0); Magnesium 2.1 mg/dL (1.6-2.4); Phosphorus 5.7 mg/dL (2.5-4.9)
--- NOTE | 2024-02-06 08:01 | P.PN ---
Subjective Date of Service: 02/06/24 Chief Complaint: SOB, Abdominal pain Admitted with NSTEMI, history of heart failure, cardiology change Brilinta to Plavix, Trend troponins, cardiology following, Renal failure, nephrology following GFR 14, 16 - Physical Exam General: Alert, In no apparent distress, Oriented x3 HEENT: Atraumatic, Normocephalic, PERRLA Neck: Supple, 2+ carotid pulse no bruit, JVD not distended Respiratory: Clear to auscultation bilaterally, Normal air movement, Diminished Cardiovascular: No edema, Normal pulses, Regular rate/rhythm, Normal S1 S2 Capillary refill: <2 Seconds Gastrointestinal: Normal bowel sounds, Soft and benign, Non-distended Musculoskeletal: No clubbing, No swelling, No contractures Integumentary: No rashes, No breakdown, No significant lesion Neurological: Normal speech, Normal strength at 5/5 x4 extr, Normal tone, Sensation intact Lymphatics: No axilla or inguinal lymphadenopathy Review of Systems Per HPI Physical Examination - Vital Signs Temperature: 98.2 F Blood Pressure: 131/70 Pulse: 89 Respirations: 15 Pulse Ox (%): 100 - Studies Medications List Reviewed: Yes Assessment And Plan - Plan Assessment plan NSTEMI: ACS with HFrEF. s/p LHC/RHC with PCI 01/17/24. Cardiology changed brilinta to Plavix. Will continue aspirin and atorvastatin. elevated trop 119-> 288.4-> 349.2. Off heparin drip and nitroglycerin drip. Cardiology is following. CHF exacerbation: Will continue lasix, strict I/O and daily weight. Lasix 20 mg p.o. daily Coreg 3.125 p.o. twice daily, aspirin 81 mg daily DC Brilinta switched to Plavix daily HTN: off NTG drip. Will continue coreg 3.125mg BID DM: Continue accuchek, SSI and ADA diet. Toni on CKD: Cr is trending up 3.93 <- 3.44. COnsulted Nephrology. Will get renal ultrasound. GFR 16, 13 BUN 73,85 Creatinine 3.93, 4.5 Anemia of chronic disease hemoglobin 9.49.6 HLD: Atorvastatin DVT ppx: heparin GI ppx: Protonix Dispo: Pending hospital course. Patient resides at home with daughter, independent Discharge Plan: Home Critical Care: No Time Spent Managing PTS Care (In Minutes): 35
[2024-02-06 09:07] VITALS: O2SAT 98
[2024-02-06 13:41] VITALS: BP 152/75; TEMP 97.7
--- NOTE | 2024-02-06 16:50 | PN ---
Date of Progress Note: 02/06/2024 Subjective: The patient was admitted to the hospital with the acute kidney injury and acidosis secon francisco to prerenal. Patient's kidney function started to recover. IV fluid was discontinued yesterday . Objective: Vital Signs: Blood pressure 131/70, pulse of 89, afebrile. Chest: Clear to auscultation. Heart: S1, S2. Regular. Abdomen: Soft, nontender. Extremity: No edema. Neuro: Alert. No focality. Laboratory Data: Hemoglobin 9.6, sodium 137, potassium 4, bicarb 18, BUN 75, creatinine 3.8, continu e to trend down. Calcium 7.7, phosphorus 5.7, magnesium 2.1. Current Medications: The patient on include aspirin, Plavix, atorvastatin, pantoprazole, carvedilol 3.125 b.i.d. Assessment And Plan: 1.Acute kidney injury secondary to prerenal, recovered, resolved, off IV fluid. I am going to keep holding IV fluid. The patient cleared from the Renal standpoint for discharge planning. 2.Hypertension, controlled, optimal. Continue current treatment. 3.Diabetes, as by Primary. 4.Congestive heart failure with cardiorenal, currently normal volume. The patient is going to be di scharged. Okay to resume low dose of Lasix at 20 mg. 5.Acidosis. We will resume sodium bicarb. The patient cleared from the Renal standpoint for discharge planning. KEYANA/NEYDA Voice ID: [id number] Report ID: [id number]
[2024-02-06] MEDS ORDERED: SODIUM BICARB 325 MG TAB PO SCH (21:00)
== END 2024-02-06 15:48 | disposition home or self-care (01) | DRG 280 ==
LOC: ER 04:02 → ERHOLD 05:55 → 3RD-ICU 14:36 → 2ND 02-03 18:31
PROVIDERS: ADMIT Hospitalist; ATTEND Hospitalist
DX: I13.0 Hypertensive heart and chronic kidney disease with heart failure and stage 1 through stage 4 chronic kidney disease, or unspecified chronic kidney disease (principal); I50.23 Acute on chronic systolic (congestive) heart failure; I21.4 Non-ST elevation (NSTEMI) myocardial infarction; J96.01 Acute respiratory failure with hypoxia; N17.9 Acute kidney failure, unspecified; E87.20 Acidosis, unspecified; N18.30 Chronic kidney disease, stage 3 unspecified; E11.22 Type 2 diabetes mellitus with diabetic chronic kidney disease; D63.1 Anemia in chronic kidney disease; E78.5 Hyperlipidemia, unspecified; I25.110 Atherosclerotic heart disease of native coronary artery with unstable angina pectoris; Z95.5 Presence of coronary angioplasty implant and graft; Z79.82 Long term (current) use of aspirin; Z79.02 Long term (current) use of antithrombotics/antiplatelets; Z90.49 Acquired absence of other specified parts of digestive tract; Z79.899 Other long term (current) drug therapy; Z87.891 Personal history of nicotine dependence
CPT/HCPCS: 36415; 71045; 76770; 80048; 80053; 80069; 80076; 81001; 82550; 82947; 83690; 83735; 83880; 84443; 84484; 85025; 85610; 85730; 86140; 93005; 99285; C9113; J0360; J1644; J1940; J7030

== ENCOUNTER 2024-11-06 11:46 | Inpatient (IN) | payer OTHER ==
[2024-11-06] MEDS ORDERED: ONDANSETRON 4 MG/2 ML VIAL ONE (12:36)
[2024-11-06 12:50] LABS: Influenza A Ag Negative; Influenza B Ag Negative; SARS-CoV-2 Antigen Rapid Res Negative (Negative)
[2024-11-06 12:54] LABS: Absolute Eosinophils 0.1 K/uL (0-0.5); Absolute Lymphocytes (CBC) 0.7 K/uL (0.7-4.9); Absolute Monocytes 0.5 K/uL (0.1-1.3); Absolute Neutrophil 6.4 K/uL (1.8-8.0); Basophils % 0.6 % (0-1.3); Eosinophils % 1.4 % (0-4.4); Hematocrit 27.8 % (39.6-49.0); Hemoglobin 9.5 g/dL (13.6-17.9); Lymphocytes % 9.6 % (15.3-44.8); MCH 29.6 pg (27.0-35.0); MCHC 34.1 g/dL (32.0-36.0); MCV 86.7 fL (80-100); MPV 8.6 fL (7.6-11.3); Monocytes % 5.8 % (3.3-12.3); Neutrophils % 82.6 % (41.7-73.7); Platelets 188 thou/uL (152-406); Red Cell Distribution Width 14.5 % (12.1-15.2)
[2024-11-06 12:56] LABS: Anion Gap 10.3 mEq/L (5.0-15.0); Potassium 4.3 mEq/L (3.5-5.1)
[2024-11-06] MEDS ORDERED: FAMOTIDINE 20 MG/2 ML VIAL IV ONE (13:11)
--- NOTE | 2024-11-06 13:18 | RAD REPORT ---
EXAMINATION: ONE VIEW CHEST XR CLINICAL INDICATION: COUGH TECHNIQUE: Frontal chest projection is submitted. Examination is limited by patient positioning and t echnique. COMPARISON: 02/01/2024 FINDINGS: Extensive bilateral pulmonary opacities are present likely pulmonary edema or infection/pneumonia. Th e heart is mildly prominent in size. No displaced fractures identified.
[2024-11-06] MEDS ORDERED: FUROSEMIDE 40 MG/4 ML VIAL ONE (13:55)
[2024-11-06] MEDS ORDERED: ASPIRIN 81 MG CHEWABLE TABLET ONE (13:55)
--- NOTE | 2024-11-06 14:42 | EDPHYS ---
Physician Documentation [facility] Name: Sylvain Veronica Age: 74 yrs Sex: Male : 1950 Arrival Date: 11/06/2024 Time: 11:46 Bed 13 Private MD: ED Physician Abisai Guzman HPI: 11/06 12:13 This 74 yrs old Male presents to ER via Ambulatory with complaints of ec2 Shortness Of Breath, Nausea. 12:13 Patient arrives today for URI symptoms. Patient reports cough and congestion as well as ec2 nausea, headache and body pain. Patient reports no vomiting, no diarrhea. Reports some shortness of breath with a cough.. Historical: - Allergies: 12:12 Brilinta; aa5 - PMHx: 12:10 Congestive heart failure; Systolic; Diabetes - IDDM; Hypertensive disorder; kidney aa5 disease; CKD 3; - PSHx: 12:10 Appendectomy; cardiac stents; Cholecystectomy; aa5 - Immunization history:: Adult Immunizations unknown. - Infectious Disease History:: Denies. - Social history:: Smoking status: Patient denies any tobacco usage or history of. ROS: 12:14 Constitutional: as per hpi ec2 Exam: 12:14 Constitutional: GEN: NAD Head: atraumatic Eyes: EOMI Ears: External ears are ec2 normal. CV: regular rate LUNGS: no respiratory distress, no wheezes or rales or rhonchi ABD: non-distended SKIN: no evidence of rashes MSK: no evidence of trauma Vital Signs: 12:10 BP 155 / 102; Pulse 107; Resp 18 S; Temp 98.6(O); Pulse Ox 100% on R/A; Weight 127.01 aa5 kg (R); Height 5 ft. 10 in. (R); 12:10 Body Mass Index 40.18 (127.01 kg, 177.8 cm) aa5 MDM: 12:12 Medical Screening Exam initiated ec2 12:14 Data reviewed: vital signs, nurses notes. ED course: Patient arrives today for ec2 evaluation of cough and cold symptoms along with feeling unwell. Will obtain lab work, chest x-ray, viral swabs.. 13:10 ED course: EKG independently reviewed and interpreted by me, shows sinus tachycardia, ec2 rate 108, no acute ST segment elevations, intervals are nonactionable.. 13:23 ED course: Chest x-ray shows volume overload. This to be consistent with marked BNP ec2 elevation at 18,000. Patient with renal dysfunction with a creatinine of 3.88 as well. Will give the patient Lasix for diuresis given the shortness of breath.. 13:42 ED course: Troponin elevated at 156.9, previous troponins also elevated, ultimately ec2 suspect patient with volume overload, will admit for diuresis, give the patient full dose aspirin as well.. 14:40 ED course: Discussed with hospitalist, pending admission.. ec2 11/06 12:13 Order name: CBC with Diff; Complete Time: 13:11 ec2 11/06 12:13 Order name: BMP; Complete Time: 13:11 ec2 11/06 12:13 Order name: COVID-19 Ag + Flu A+B Ag; Complete Time: 13:11 ec2 11/06 12:13 Order name: BNP; Complete Time: 13:11 ec2 11/06 13:11 Order name: Troponin High Sensitivity; Complete Time: 13:41 ec2 11/06 16:07 Order name: Liver (Hepatic) Function EDMS 11/06 16:07 Order name: NT PRO-BNP EDMS 11/06 16:07 Order name: T4 Free EDMS 11/06 16:07 Order name: Thyroid Stimulating Hormone EDMS 11/06 16:07 Order name: Urinalysis w/ reflexes EDMS 11/06 16:07 Order name: Basic Metabolic Panel EDMS 11/06 16:07 Order name: Basic Metabolic Panel EDMS 11/06 16:07 Order name: Basic Metabolic Panel EDMS 11/06 16:07 Order name: Basic Metabolic Panel EDMS 11/06 16:07 Order name: CBC with Automated Diff EDMS 11/06 16:07 Order name: CBC with Automated Diff EDMS 11/06 16:07 Order name: CBC with Automated Diff EDMS 11/06 16:07 Order name: CBC with Automated Diff EDMS 11/06 16:07 Order name: Magnesium EDMS 11/06 16:07 Order name: Magnesium EDMS 11/06 16:07 Order name: Phosphorus EDMS 11/06 16:07 Order name: Phosphorus EDMS 11/06 16:07 Order name: Troponin High Sensitivity EDMS 11/06 16:07 Order name: Troponin High Sensitivity EDMS 11/06 16:07 Order name: Troponin High Sensitivity EDMT 11/06 16:07 Order name: Troponin High Sensitivity [facility] 11/06 16:12 Order name: Hemoglobin A1c EDMT 11/06 12:13 Order name: CXR XRAY; Complete Time: 13:23 ec2 11/06 14:25 Order name: EKG Electrocardiogram; Complete Time: 16:31 EDMS 11/06 16:07 Order name: CONS Physician Consult EDMT 11/06 12:13 Order name: IV; Complete Time: 12:39 ec2 11/06 12:14 Order name: EKG - Nurse/Tech; Complete Time: 13:09 ec2 Administered Medications: 12:39 Drug: Ondansetron IVP 4 mg IVP once; over 2 minutes Route: IVP; Site: right wrist; aa5 13:09 Follow up: Response: No adverse reaction aa5 13:13 Drug: Famotidine IVP 20 mg IVP once; dilute with 10 mL 0.9% NaCl; give over 2 minutes aa5 Route: IVP; Site: right wrist; 16:45 Follow up: Response: No adverse reaction kj2 13:59 Drug: Furosemide IVP 40 mg IVP once; give over 2 minutes Route: IVP; Site: right hand; kj2 16:32 Follow up: Response: No adverse reaction kj2 13:59 Drug: Aspirin PO Chewable Tablet 324 mg PO once; 81 mg tablets x 4 Route: PO; kj2 16:31 Follow up: Response: No adverse reaction kj2 Disposition Summary: 11/06/24 14:41 Hospitalization Ordered Notes: Hospitalization Status: Inpatient Admission ec2 Provider: Jeanna Branham ec2 Location: Telemetry/MedSurg (Inpatient) ec2 Condition: Stable ec2 Problem: an acute exacerbation ec2 Symptoms: are unchanged ec2 Bed/Room Type: Standard ec2 Room Assignment: 229(11/06/24 16:11) bc6 Diagnosis - Volume Overload, CHF exacerbation ec2 Forms: - Medication Reconciliation Form ec2 - SBAR form ec2 - Leadership Thank You Letter ec2 Signatures: Dispatcher [employer] Meggan Gorman RN RN aa5 Jose Juan Crockett RN RN ja1 Mariam Viveros bc6 Abisai Guzman MD MD ec2 Tammy Sommers RN RN kj2 Corrections: (The following items were deleted from the chart) 12:12 12:12 Allergies: No Known Allergies; aa5 aa5 13:11 13:11 Troponin High Sensitivity+C.LAB.BRZ ordered. EDMS EDMS 13:12 13:12 LAB ADD ON+C.LAB.BRZ ordered. EDMS EDMS 15:44 14:41 ec2 ja1 15:44 15:44 225 ja1 ja1 16:11 15:44 ja1 bc6
--- NOTE | 2024-11-06 14:42 | ER ---
Nurse's Notes [facility] Name: Sylvain Veronica Age: 74 yrs Sex: Male : 1950 Arrival Date: 11/06/2024 Time: 11:46 Bed 13 Private MD: Diagnosis: Volume Overload, CHF exacerbation Presentation: 11/06 12:10 Chief complaint: Patient states: SOB since last night. Slight cough, nausea, and sore aa5 throat. Coronavirus screen: cough unrelated to allergies. Ebola Screen: Patient denies travel to an Ebola-affected area in the 21 days before illness onset. Risk Assessment: Do you want to hurt yourself or someone else? Patient reports no desire to harm self or others. Onset of symptoms was October 2024. 12:10 Acuity: JACKIE 3 aa5 12:10 Method Of Arrival: Ambulatory aa5 12:10 Initial Sepsis Screen: Does the patient meet any 2 criteria? HR > 90 bpm. Does the aa5 patient have a suspected source of infection? No. Patient's initial sepsis screen is negative. Triage Assessment: 14:00 General: Appears in no apparent distress. Behavior is calm, cooperative. Respiratory: kj2 Onset: The symptoms/episode began/occurred gradually, the patient has mild shortness of breath. Respiratory: Airway is patent Respiratory effort is even, unlabored. Historical: - Allergies: 12:12 Brilinta; aa5 - PMHx: 12:10 Congestive heart failure; Systolic; Diabetes - IDDM; Hypertensive disorder; kidney aa5 disease; CKD 3; - PSHx: 12:10 Appendectomy; cardiac stents; Cholecystectomy; aa5 - Immunization history:: Adult Immunizations unknown. - Infectious Disease History:: Denies. - Social history:: Smoking status: Patient denies any tobacco usage or history of. Screenin:10 [facility] ED Fall Risk Assessment (Adult) History of falling in the last 3 months, aa5 including since admission No falls in past 3 months (0 pts) Confusion or Disorientation No (0 pts) Intoxicated or Sedated No (0 pts) Impaired Gait No (0 pts) Mobility Assist Device Used No (0 pt) Altered Elimination No (0 pt) Score/Fall Risk Level 0 - 2 = Low Risk Oriented to surroundings, Maintained a safe environment, Educated pt \\T\\ family on fall prevention, incl call for assistance when getting out of bed, Assessed \\T\\ reinforced patient's understanding of fall precautions. Abuse screen: Denies threats or abuse. Nutritional screening: No deficits noted. Tuberculosis screening: No symptoms or risk factors identified. Assessment: 12:10 General: Appears uncomfortable, Behavior is calm, cooperative. Pain: Complains of pain aa5 in back and abdomen Pain currently is 4 out of 10 on a pain scale. Quality of pain is described as aching, Pain began 1 day ago. Is continuous. Neuro: Level of Consciousness is awake, alert, obeys commands, Oriented to person, place, time, situation. Cardiovascular: Heart tones S1 S2 present Rhythm is regular. Respiratory: Reports SOB and slight cough Airway is patent Respiratory effort is even, unlabored, Respiratory pattern is regular, symmetrical, Breath sounds are clear bilaterally. GI: Abdomen is round non-distended, Bowel sounds present X 4 quads. Abd is soft and non tender X 4 quads. Reports nausea, Patient currently denies vomiting. : No signs and/or symptoms were reported regarding the genitourinary system. EENT: Reports "scratchy throat" . Derm: Skin is pink, warm \\T\\ dry. Musculoskeletal: Range of motion: intact in all extremities. 13:09 Reassessment: Patient is alert, oriented x 3, equal unlabored respirations, skin aa5 warm/dry/pink. Patient states symptoms have not improved. was notified. . 13:09 GI: Reports nausea. aa5 13:35 Reassessment: Pt's care will be continued by CHUCK Munoz. aa5 14:00 Reassessment: Patient appears in no apparent distress at this time. Patient and/or kj2 family updated on plan of care and expected duration. Pain level reassessed. Patient is alert, oriented x 3, equal unlabored respirations, skin warm/dry/pink. 16:31 Reassessment: Patient appears in no apparent distress at this time. Patient and/or kj2 family updated on plan of care and expected duration. Pain level reassessed. Patient is alert, oriented x 3, equal unlabored respirations, skin warm/dry/pink. Vital Signs: 12:10 BP 155 / 102; Pulse 107; Resp 18 S; Temp 98.6(O); Pulse Ox 100% on R/A; Weight 127.01 aa5 kg (R); Height 5 ft. 10 in. (R); 12:10 Body Mass Index 40.18 (127.01 kg, 177.8 cm) aa5 ED Course: 11:48 Patient arrived in ED. mr 11:48 Abisai Guzman MD is Attending Physician. ec2 12:10 Triage completed. aa5 12:10 Arm band placed on. aa5 12:10 Patient has correct armband on for positive identification. placed in internal waiting, aa5 sitting in recliner. 12:30 Initial lab(s) drawn, by me, sent to lab. COVID swab sent to lab. Flu and/or RSV swab aa5 sent to lab. Inserted saline lock: 20 gauge in right wrist, using aseptic technique. Blood collected. Flushed with 10 mL NS. 12:39 Meggan Yang, RN is Primary Nurse. aa5 13:08 CXR XRAY In Process Unspecified. EDMS 13:09 EKG done, by ED staff, reviewed by Abisai Guzman MD. aa5 13:40 Notified ED physician of a critical lab result(s). troponin 156.9. aa5 14:01 No provider procedures requiring assistance completed. kj2 14:41 Jeanna Branham MD is Hospitalizing Provider. ec2 16:31 Tammy Sommers, CHUCK is Primary Nurse. kj2 17:38 Patient admitted, IV remains in place. kj2 17:39 Provided Education on: need for admit. kj2 Administered Medications: 12:39 Drug: Ondansetron IVP 4 mg IVP once; over 2 minutes Route: IVP; Site: right wrist; aa5 13:09 Follow up: Response: No adverse reaction aa5 13:13 Drug: Famotidine IVP 20 mg IVP once; dilute with 10 mL 0.9% NaCl; give over 2 minutes aa5 Route: IVP; Site: right wrist; 16:45 Follow up: Response: No adverse reaction kj2 13:59 Drug: Furosemide IVP 40 mg IVP once; give over 2 minutes Route: IVP; Site: right hand; kj2 16:32 Follow up: Response: No adverse reaction kj2 13:59 Drug: Aspirin PO Chewable Tablet 324 mg PO once; 81 mg tablets x 4 Route: PO; kj2 16:31 Follow up: Response: No adverse reaction kj2 Medication: 13:15 VIS not applicable for this client. aa5 Outcome: 14:41 Decision to Hospitalize by Provider. ec2 17:35 Patient left the ED. ll1 17:38 Admitted to Med/surg accompanied by tech, via wheelchair, kj2 17:38 Condition: stable 17:38 Instructed on the need for admit, Signatures: Dispatcher [employer] EDTX DlVerna, Reg Reg mr YangMeggan patel RN RN aa5 Janae Oakes RN RN ll1 Abisai Guzman MD MD ec2 Tammy Sommers RN RN kj2 Corrections: (The following items were deleted from the chart) 12:12 12:12 Allergies: No Known Allergies; aa5 5 12:13 12:10 127.01 kg Reported; Height 5 ft. 10 in. Reported; BMI: 40.1; aa5 5
--- NOTE | 2024-11-06 15:58 | P.HP ---
Certification for Inpatient Patient admitted to: Observation With expected LOS: <2 Midnights Patient will require the following post-hospital care: None Practitioner: I am a practitioner with admitting privileges, knowledge of patient current condition, hospital course, and medical plan of care. Services: Services provided to patient in accordance with Admission requirements found in Title 42 Section 412.3 of the Code of Federal Regulations <Butch Hornmatlila - Last Filed: 11/06/24 16:18> Patient History Date of Service: 11/06/24 History of Present Illness: Patient is a 74-year-old male with past medical history of diabetes type 2, hypertension, CHF, cardiac stent x 1 in 2022, CKD, Zentz to the ED with abdominal distention and shortness of breath X1week. Patient also reports having intermittent constipation/diarrhea but denies nausea or vomiting. Patient states that approximately 8 months ago he discontinued use of Lasix as he was told he did not need it anymore and was only started on it after he was diagnosed with COVID-19. Patient reports being cleared from all of his diagnoses and discontinuing all of his home meds. Workup includes troponin 156, creatinine 3.88, BNP 18K, and chest x-ray with extensive bilateral pulmonary opacities are present likely pulmonary edema or infection/pneumonia. The heart is mildly prominent in size. No displaced fractures identified. Patient received IV Lasix and aspirin while in the ED and is now being admitted for volume overload this time. Home medications list reviewed: Yes (Denies home meds) - Past Medical/Surgical History Has patient received pneumonia vaccine in the past: No Diabetic: Yes -: Diabetes mellitus type 2insulin-dependent -: Hypertension -: Chronic systolic CHF with EF=40% -: CAD -: CKD III -: Cholecystectomy -: Cardiac catheterization: 2 stents -: appy Psychosocial/ Personal History: Patient is . Lives at home. - Family History Father -: Diabetes Mother -: Diabetes - Social History Alcohol use: Yes CD- Drugs: No Caffeine use: Yes <Swetha Horn - Last Filed: 11/06/24 16:18> Date of Service: 11/06/24 <Jeanna Branham - Last Filed: 11/06/24 21:35> Allergies No Known Allergies Allergy (Verified 02/03/24 19:10) Home Medications: Aspirin [Aspirin EC] 81 mg PO DAILY #30 tab 11/13/23 Atorvastatin Calcium [Lipitor] 40 mg PO BEDTIME #30 tab 11/13/23 Furosemide [Lasix*] 20 mg PO DAILY #90 tab 01/17/24 carvediloL [Coreg*] 3.125 mg PO BID #180 tab 01/17/24 Clopidogrel Bisulfate [Plavix*] 75 mg PO DAILY 90 Days #90 tab 02/03/24 Furosemide [Lasix] 40 mg PO DAILY 90 Days #90 tab 02/03/24 Pantoprazole [Protonix Tab] 40 mg PO DAILY 30 Days #30 tab 02/03/24 Review of Systems 10-point ROS is otherwise unremarkable Respiratory: Shortness of Breath, SOB with Excertion Cardiovascular: Chest Pain (Chest pressure) Gastrointestinal: Diarrhea, Distention, Constipation <Swetha Horn - Last Filed: 11/06/24 16:18> Physical Examination - Physical Exam General: Alert, In no apparent distress HEENT: Atraumatic, PERRLA, Mucous membr. moist/pink, EOMI, Sclerae nonicteric Neck: Supple, 2+ carotid pulse no bruit, No LAD, Without JVD or thyroid abnormality Respiratory: Normal air movement, Diminished Cardiovascular: Regular rate/rhythm, Normal S1 S2, Edema Capillary refill: <2 Seconds Gastrointestinal: Hypoactive, No tenderness, No rebound, No guarding, Distended Musculoskeletal: No tenderness Integumentary: No rashes Neurological: Normal gait, Normal speech, Normal strength at 5/5 x4 extr, Normal tone, Normal affect Lymphatics: No axilla or inguinal lymphadenopathy External genitalia: Deferred Rectal: Deferred - Studies Laboratory Data (last 24 hrs) 11/06/24 11/06/24 12:31 12:31 WBC 7.80 Hgb 9.5 L Hct 27.8 L Plt Count 188 Sodium 138 Potassium 4.3 BUN 48 H Creatinine 3.88 H Glucose 159 H <Swetha Horn - Last Filed: 11/06/24 16:18> - Studies Laboratory Data (last 24 hrs) 11/06/24 11/06/24 12:31 12:31 WBC 7.80 Hgb 9.5 L Hct 27.8 L Plt Count 188 Sodium 138 Potassium 4.3 BUN 48 H Creatinine 3.88 H Glucose 159 H <Jeanna Branham - Last Filed: 11/06/24 21:35> Assessment and Plan - Plan Volume overload Chest pressure/SOB Hx of cardiac stent (2022) -CXR reviewed with extensive bilateral pulmonary opacities are present likely pulmonary edema or infection/pneumonia. The heart is mildly prominent in size. No displaced fractures identified. -Patient reports past use of Lasix 8 months ago -Troponin 156, continue to trend -BNP 18,776 -Monitor daily weights -Strict I&O -Cardiac diet for now Fluid restriction 1200mL -Received IV Lasix 40mg and ASA while in ED, consider more Lasix after re-eval -Monitor kidney function and electrolytes -Consider Echo -Cardiology consult ordered, appreciate recs -Denies all home meds Abdominal Distention -Reported constipation/diarrhea -Covid/Flu; negative -LFT's ordered -Denies Abd pain, N/V -KUB ordered for now Hx of Diabetes Type II -Patient denies home meds and states he was cleared by PCP -A1C ordered -Accu-checks ACHS for now -Serum glucose R/o Urinary Tract Infection Hx of CKD -Reports Hx of UTI's and followed by outpatient Nuclear Medicine Tech -UA ordered and pending result -Admission Creatinine 3.88, previous admit (2.8-4.2) -Monitor Kidney function q6h for now -Monitor electrolytes, mag &phos ordered -Consider Nephro consult if worsening Hx of HTN -Monitor BP per unit protocol -Denies home meds DVT Ppx: SCD's for now GI Ppx: PO Protonix Code Status: Full Code Discharge Plan: Home Plan to discharge in: 48 Hours - Advance Directives Does patient have a Living Will: No Does patient have a Durable POA for Healthcare: No - Code Status/Comfort Care Code Status Assessed: Yes (FULL CODE) <Swetha Horn - Last Filed: 11/06/24 16:18> Physician Review: Patient Assessed, Agree with Above Assessment and Plan <Jeanna Branham - Last Filed: 11/06/24 21:35>
[2024-11-06] MEDS ORDERED: ACETAMINOPHEN 325 MG TABLET PO PRN (15:59)
[2024-11-06 17:34] VITALS: BMI 4576.7
[2024-11-06] MEDS: ATORVASTATIN 40 MG TAB PO SCH (21:32)
[2024-11-06] MEDS: carvediloL 3.125 MG TAB PO SCH (21:32)
[2024-11-06] MEDS: LACTULOSE 20 GM/30 ML UCUP PO PRN (22:45)
[2024-11-06] MEDS: CALCIUM CARBONATE CHEW 500MG TAB PO PRN (22:45)
[2024-11-07 01:56] LABS: ALT/SGPT 16 U/L (16-61); Albumin 3.3 g/dL (3.4-5.0); Albumin/Globulin Ratio 0.8 (1.1-1.8); Alkaline Phosphatase 128 U/L (45-117); Bilirubin Direct 0.2 mg/dL (0-0.2); Bilirubin Indirect, Calculated 0.6 mg/dL (0.2-0.8); Bilirubin Total 0.8 mg/dL (0.2-1.0); Protein, Total 7.3 g/dL (6.4-8.2); Thyroid Stimulating Hormone 0.359 uIU/mL (0.358-3.740)
[2024-11-07 02:04] LABS: AST/SGOT < 10 U/L (15-37)
[2024-11-07 06:04] LABS: Absolute Eosinophils 0.2 K/uL (0-0.5); Absolute Lymphocytes (CBC) 1.1 K/uL (0.7-4.9); Absolute Monocytes 0.5 K/uL (0.1-1.3); Absolute Neutrophil 4.8 K/uL (1.8-8.0); Basophils % 0.7 % (0-1.3); Eosinophils % 2.4 % (0-4.4); Hematocrit 24.1 % (39.6-49.0); Hemoglobin 8.4 g/dL (13.6-17.9); MCH 30.3 pg (27.0-35.0); MCHC 34.9 g/dL (32.0-36.0); MCV 86.8 fL (80-100); MPV 8.6 fL (7.6-11.3); Monocytes % 7.7 % (3.3-12.3); Neutrophils % 72.2 % (41.7-73.7); Platelets 179 thou/uL (152-406); RBC Red Blood Cell Count 2.78 M/uL (4.33-5.43); Red Cell Distribution Width 14.2 % (12.1-15.2)
[2024-11-07 06:22] LABS: Anion Gap 12.1 mEq/L (5.0-15.0); Phosphorus 3.8 mg/dL (2.5-4.9); Potassium 4.1 mEq/L (3.5-5.1)
[2024-11-07] MEDS: PNEUMOCOCCAL VACCINE 0.5 ML IMVAC ONE (08:00)
[2024-11-07] MEDS: ASPIRIN EC 81 MG TAB PO SCH (08:43)
[2024-11-07] MEDS: CLOPIDOGREL 75 MG TABLET PO SCH (08:43)
--- NOTE | 2024-11-07 10:59 | P.PN ---
Subjective Date of Service: 11/07/24 Subjective: No new changes, Tolerating diet, C/O voiced (Patient reports decreased shortness of breath and abdominal distention along with having a bowel movement overnight. Denies new complaints at this time.) Review of Systems 10-point ROS is otherwise unremarkable Respiratory: SOB with Excertion Gastrointestinal: Distention, Constipation Physical Examination - Vital Signs Temperature: 97.8 F Blood Pressure: 112/59 Pulse: 87 Respirations: 16 Pulse Ox (%): 97 - Physical Exam General: Alert, In no apparent distress HEENT: Atraumatic, PERRLA, EOMI Neck: Supple, JVD not distended Respiratory: Normal air movement, Diminished Cardiovascular: Regular rate/rhythm, Normal S1 S2 Capillary refill: <2 Seconds Gastrointestinal: Normal bowel sounds, No tenderness, Distended (mild) Musculoskeletal: No tenderness Integumentary: No rashes Neurological: Normal speech, Normal tone, Normal affect Lymphatics: No axilla or inguinal lymphadenopathy - Studies Laboratory Data (last 24 hrs) 11/06/24 11/06/24 12:31 12:31 WBC 7.80 Hgb 9.5 L Hct 27.8 L Plt Count 188 Sodium 138 Potassium 4.3 BUN 48 H Creatinine 3.88 H Glucose 159 H Assessment And Plan - Plan CHF exacerbation Hx of cardiac stent (2022) -CXR reviewed with extensive bilateral pulmonary opacities are present likely pulmonary edema or infection/pneumonia. The heart is mildly prominent in size. No displaced fractures identified. -Patient reports past use of Lasix 8 months ago -Troponin 156, continue to trend -BNP 18,776 -Monitor daily weights -Strict I&O -Cardiac diet for now Fluid restriction 1200mL -Monitor kidney function and electrolytes -Consider Echo -Cardiology consult ordered with recs 11/07: lower lasix to 40 mg IV BID, Continue Coreg 3.125 mg po BID. 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
[2024-11-07] MEDS: FUROSEMIDE 40 MG/4 ML VIAL IV SCH ×2 (12:39→21:44)
--- NOTE | 2024-11-07 14:16 | P.CNS ---
Date of Consult: 11/07/24 Chief Complaint: Heart failure, NSTEMI History of Present Illness: Patient with PMH of CAD, most recent PCI RCA 12/2023, combined heart failure, CKD presented with worsening [place], abdominal pain, constipation for the last few days, denies chest pain, no palpitations, no syncope, patient stopped all his medications for un obvious reason. Allergies No Known Allergies Allergy (Verified 02/03/24 19:10) Home medications list reviewed: Yes Home Medications: Aspirin [Aspirin EC] 81 mg PO DAILY #30 tab 11/13/23 Atorvastatin Calcium [Lipitor] 40 mg PO BEDTIME #30 tab 11/13/23 Furosemide [Lasix*] 20 mg PO DAILY #90 tab 01/17/24 carvediloL [Coreg*] 3.125 mg PO BID #180 tab 01/17/24 Clopidogrel Bisulfate [Plavix*] 75 mg PO DAILY 90 Days #90 tab 02/03/24 Furosemide [Lasix] 40 mg PO DAILY 90 Days #90 tab 02/03/24 Pantoprazole [Protonix Tab] 40 mg PO DAILY 30 Days #30 tab 02/03/24 - Past Medical/Surgical History Diabetic: Yes -: Diabetes mellitus type 2insulin-dependent -: Hypertension -: Chronic systolic CHF with EF=40% -: CAD -: CKD III -: Cholecystectomy -: Cardiac catheterization: 2 stents -: appy Psychosocial/ Personal History: Patient is . Lives at home. - Family History Father Medical History: Diabetes Mother Medical History: Diabetes - Social History Smoking Status: Former smoker Alcohol use: No CD- Drugs: No Caffeine use: No Place of Residence: Home Review of Systems 10-point ROS is otherwise unremarkable Physical Examination Temp Pulse Resp BP Pulse Ox 98.0 F 88 16 128/68 97 11/07/24 11:38 11/07/24 12:39 11/07/24 11:38 11/07/24 12:39 11/07/24 11:38 General: Alert, In no apparent distress HEENT: Atraumatic, PERRLA, Mucous membr. moist/pink, EOMI, Sclerae nonicteric Neck: Supple, 2+ carotid pulse no bruit, No LAD, Without JVD or thyroid abnormality Respiratory: Clear to auscultation bilaterally, Normal air movement Cardiovascular: Regular rate/rhythm, Normal S1 S2 Gastrointestinal: Normal bowel sounds, No tenderness Musculoskeletal: No tenderness Integumentary: No rashes Neurological: Normal gait, Normal speech, Normal tone, Normal affect Lymphatics: No axilla or inguinal lymphadenopathy - Problems (1) Acute on chronic combined systolic (congestive) and diastolic (congestive) heart failure Current Visit: Yes Status: Acute Plan: although paitent labs are significantly abnormal, he does not look like very volume overloaded lower lasix to 40 mg IV BID Continue Coreg 3.125 mg po BID continue to monitor input and output and electrolytes. (2) SANTOS (acute kidney injury) Current Visit: No Status: Acute Plan: Patient kidney function is worsening, recommend to slow down diuresis and get Nephrology consult. (3) CAD (coronary artery disease) Current Visit: No Status: Chronic Plan: patient with PCI of RCA stent ISR back in 12/2023, moderate OM and LAD ISR, patient has not been complaint with ASA and Plavix, denies chest pain cardiac e nzymes are trending down, talked to him in details about medications compliance. ASA 81 mg daily Plavix 75 mg daily Qualifiers: Coronary Disease-Associated Artery/Lesion type: [place] artery [place] vs. transplanted heart: [place] heart Associated angina: without angina Qualified Code(s): I25.10 - Atherosclerotic heart disease of [place] coronary artery without angina pectoris
--- NOTE | 2024-11-07 14:41 | EKG ---
Test Date: 2024-11-06 Test Time: 13:06:41 Head [employer] Reactor Operator: CHANO MEASUREMENT RESULTS: Intervals: Rate: 108 [place]: 172 QRSD: 84 QT: 352 QTc: 471 [place]: P: 40 [place]: 172 QRS: 57 T: 46 INTERPRETIVE STATEMENTS: Sinus tachycardia ST & T wave abnormality, consider lateral ischemia Abnormal ECG Compared to ECG 02/01/2024 04:14:31 ST (T wave) deviation now present Possible ischemia now present Myocardial infarct finding no longer present Electronically Signed On 11-07-24 14:39:54 CDT by Matty Peralta
[2024-11-07 15:18] VITALS: O2SAT 97
[2024-11-07 17:40] LABS: Specific Gravity 1.009 (1.005-1.030); Sqamous Epithelial <5 /HPF (None Seen); Urine Bacteria None Seen /HPF (<20); Urine Bilirubin NEGATIVE (Negative); Urine Blood 1+ (Negative); Urine Clarity Turbid (Clear); Urine Color Colorless (Yellow); Urine Crystals Unidentified Few /HPF (None Seen); Urine Culture Reflex Order NOT NEEDED; Urine Glucose NEGATIVE (Negative); Urine Ketones NEGATIVE (Negative); Urine Microscopic Reflex YN ORDER UMIC; Urine Mucus Slight /HPF (None Seen); Urine Nitrite NEGATIVE (Negative); Urine Protein TRACE (Negative); Urine RBC <5 /HPF (None Seen); Urine Urobilinogen Normal (Normal); Urine WBC <5 /HPF (<5); Urine Yeast (Budding) Trace /HPF (None Seen)
--- NOTE | 2024-11-07 22:55 | RAD REPORT ---
EXAMINATION: US RETROPERITONEUM CLINICAL INDICATION: [facility] Renal failure TECHNIQUE: Real-time ultrasonography of the retroperitoneum was performed. COMPARISON: No prior exam. FINDINGS: RIGHT KIDNEY: Right renal length measurement: 10.1 cm. Normal in echogenicity and size. No calculus, solid mass or hydronephrosis. LEFT KIDNEY: Left renal length measurement: 9.9 cm. Normal in echogenicity and size. No calculus, karen id mass or hydronephrosis. URINARY BLADDER: No focal abnormality. Ureteral jets visualized. No echogenic calculi. ADDITIONAL FINDINGS: None. IMPRESSION: No acute or significant abnormalities.
[2024-11-08 05:36] LABS: Absolute Eosinophils 0.3 K/uL (0-0.5); Absolute Lymphocytes (CBC) 0.7 K/uL (0.7-4.9); Absolute Monocytes 0.4 K/uL (0.1-1.3); Absolute Neutrophil 3.7 K/uL (1.8-8.0); Basophils % 0.7 % (0-1.3); Eosinophils % 5.7 % (0-4.4); Hematocrit 25.7 % (39.6-49.0); Hemoglobin 8.7 g/dL (13.6-17.9); Lymphocytes % 13.9 % (15.3-44.8); MCH 29.3 pg (27.0-35.0); MCHC 33.8 g/dL (32.0-36.0); MCV 86.6 fL (80-100); MPV 8.2 fL (7.6-11.3); Monocytes % 8.5 % (3.3-12.3); Neutrophils % 71.2 % (41.7-73.7); Platelets 199 thou/uL (152-406); RBC Red Blood Cell Count 2.96 M/uL (4.33-5.43)
[2024-11-08 06:04] LABS: Anion Gap 15.1 mEq/L (5.0-15.0); Potassium 4.1 mEq/L (3.5-5.1)
[2024-11-08 06:06] LABS: Troponin High Sensitivity 141.5 pg/mL (<58.9)
--- NOTE | 2024-11-08 07:56 | P.PN ---
Subjective Date of Service: 11/08/24 Chief Complaint: Heart failure, NSTEMI Subjective: No new changes, Tolerating diet, Ambulating Review of Systems 10-point ROS is otherwise unremarkable Physical Examination - Vital Signs Temperature: 97.6 F Blood Pressure: 127/70 Pulse: 81 Respirations: 16 Pulse Ox (%): 97 - Physical Exam General: Alert, In no apparent distress HEENT: Atraumatic, PERRLA, EOMI Neck: Supple, JVD not distended Respiratory: Normal air movement, Diminished Cardiovascular: Regular rate/rhythm, Normal S1 S2 Capillary refill: <2 Seconds Gastrointestinal: Normal bowel sounds, No tenderness Musculoskeletal: No tenderness Integumentary: No rashes Neurological: Normal speech, Normal tone, Normal affect Lymphatics: No axilla or inguinal lymphadenopathy Assessment And Plan - Plan CHF exacerbation Hx of cardiac stent (2022) -CXR reviewed with extensive bilateral pulmonary opacities are present likely pulmonary edema or infection/pneumonia. The heart is mildly prominent in size. No displaced fractures identified. -Patient reports past use of Lasix 8 months ago -Troponin 156/166/141 -BNP 18,776 -Monitor daily weights -Strict I&O -Cardiac diet for now Fluid restriction 1200mL -Monitor kidney function and electrolytes -Echo: -Cardiology consult ordered with recs 11/07: lower lasix to 40 mg IV BID, Continue Coreg 3.125 mg po BID. Patient with PCI of RCA stent ISR back in 12/2023, moderate OM and LAD ISR, continue home meds ASA 81 mg daily Plavix 75 mg daily -11/08: Lasix stopped after IV40mg given today per Nephro recs -non-compliance with home meds Abdominal Distention,improving Constipation, resolved -Reported constipation/diarrhea -Covid/Flu; negative -Denies Abd pain, N/V -Lactulose X1 dose given Hx of Diabetes Type II -Patient denies home meds and states he was cleared by PCP -A1C; 5.2% -Accu-checks ACHS for now R/o Urinary Tract Infection Hx of CKD stage IV -Reports Hx of UTI's and followed by outpatient Law Writer -Creatinine worsening 4.88, previous admit (2.8-4.2) -Monitor Kidney function -Renal US completed:without acute abnormalities -Monitor electrolytes, mag &phos ordered -Nephrology consult ordered, and discussed plan to have IV40mg once today then re-evaluate need for more Lasix tomorrow. Repeat UA recommended. -Repeat UA ordered and needs F/u Hx of HTN -Monitor BP per unit protocol -Denies home meds DVT Ppx: ASA/Plavix GI Ppx: PO Protonix Code Status: Full Code Discharge Plan: Home Plan to discharge in: 24 Hours - Code Status/Comfort Care Code Status Assessed: Yes (FULL CODE) Physician Review: Patient Assessed, Agree with Above Assessment and Plan
[2024-11-08] MEDS: ALBUMIN HUMAN 25% 100 ML IV SCH (12:57)
--- NOTE | 2024-11-08 14:02 | CON ---
Date of Consultation: 11/08/2024 Chief Complaint: Abdominal pain, shortness of breath. Reason For Consult: Acute on chronic kidney disease. 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 The patient presented to ER complaining of abdo hipoltio distention and shortness of breath of one day duration. Upon presentation, his troponin was el evated to 155, creatinine 3.8. Chest x-ray with extensive opacities. The patient received IV Lasix. His creatinine increased to 3.8. Currently, the patient has no rales on examination and not requir ing oxygen support. Past Medical History: Diabetes mellitus with nephropathy, heart failure, reduced ejection fraction, coronary artery disease, and diabetes mellitus. Past Surgical History: Cholecystectomy, cardiac catheterization. Family History: Father and mother have diabetes mellitus. Social History: History of occasional alcohol abuse. Denied tobacco use. Allergies: NO KNOWN DRUG ALLERGIES. Home Medications: See MAR. Review of Systems: Positive for weakness, shortness of breath that resolved, abdominal discomfort that resolved. Denied nausea, vomiting, diarrhea, chest pain, or palpitation. Physical Examination: Vital Signs: Temperature 98, pulse rate 82, blood pressure 114/58. General: Awake and alert, oriented x3, not in distress. Neck: Supple. No elevated JVD. Heart: Regular rate and rhythm. Normal S1, S2. Chest: Clear to auscultation bilaterally. No rales or wheezes. Abdomen: Soft and nontender. Extremities: No edema. Medications: Include aspirin, Lipitor, carvedilol, Plavix, and Lasix. Imaging Study: Renal ultrasound showed no hydronephrosis. Assessment And Plan: 1. Acute on diabetic chronic kidney disease stage 4-5 versus progressive kidney disease, creatinine u p to 4.8 with GFR of 12. Renal ultrasound showed no hydronephrosis. The patient has no sign of flui d overload. We will stop Lasix today and resume as oral tomorrow. Renal dose medication. If no imp rovement in his renal function, the patient might require renal replacement therapy. Discussed with the patient. 2. CHF exacerbation. Currently looks euvolemic. We will discontinue Lasix and consider to start ora l Lasix tomorrow. Low salt diet. 3. Diabetes mellitus. Continue insulin. AA/MODL Voice ID: [id number] Report ID: [id number]
[2024-11-08 15:23] LABS: Specific Gravity 1.011 (1.005-1.030); Sqamous Epithelial <5 /HPF (None Seen); Urine Bacteria None Seen /HPF (<20); Urine Bilirubin NEGATIVE (Negative); Urine Blood 1+ (Negative); Urine Clarity Turbid (Clear); Urine Color Light-Yellow (Yellow); Urine Crystals Unidentified Few /HPF (None Seen); Urine Culture Reflex Order NOT NEEDED; Urine Glucose NEGATIVE (Negative); Urine Ketones NEGATIVE (Negative); Urine Microscopic Reflex YN ORDER UMIC; Urine Mucus Slight /HPF (None Seen); Urine Nitrite NEGATIVE (Negative); Urine Protein 1+ (Negative); Urine RBC <5 /HPF (None Seen); Urine Urobilinogen Normal (Normal); Urine WBC <5 /HPF (<5); Urine WBC Clump Rare /HPF (None Seen); Urine Yeast (Budding) Occasional /HPF (None Seen)
[2024-11-09 05:41] LABS: Absolute Eosinophils 0.4 K/uL (0-0.5); Absolute Lymphocytes (CBC) 0.8 K/uL (0.7-4.9); Absolute Monocytes 0.6 K/uL (0.1-1.3); Absolute Neutrophil 4.2 K/uL (1.8-8.0); Basophils % 0.7 % (0-1.3); Hemoglobin 8.7 g/dL (13.6-17.9); Lymphocytes % 13.2 % (15.3-44.8); MCH 29.5 pg (27.0-35.0); MCHC 34.6 g/dL (32.0-36.0); MCV 85.4 fL (80-100); MPV 8.4 fL (7.6-11.3); Monocytes % 9.6 % (3.3-12.3); Neutrophils % 70.5 % (41.7-73.7); Platelets 201 thou/uL (152-406); RBC Red Blood Cell Count 2.93 M/uL (4.33-5.43); Red Cell Distribution Width 14.4 % (12.1-15.2)
[2024-11-09 06:39] LABS: ALT/SGPT 16 U/L (16-61); Albumin 3.7 g/dL (3.4-5.0); Alkaline Phosphatase 119 U/L (45-117); Anion Gap 15.1 mEq/L (5.0-15.0); BUN Blood Urea Nitrogen 77 mg/dL (7-18); Bicarbonate 19 mEq/L (21-32); Bilirubin Direct 0.2 mg/dL (0-0.2); Bilirubin Indirect, Calculated 0.2 mg/dL (0.2-0.8); Bilirubin Total 0.4 mg/dL (0.2-1.0); Globulin 3.8 g/dL (2.3-3.5); Glomerular Filtration Rate 11 ml/min (=/>90); Glucose Level 109 mg/dL (74-106); Magnesium 2.1 mg/dL (1.6-2.4); Phosphorus 6.8 mg/dL (2.5-4.9); Potassium 4.1 mEq/L (3.5-5.1); Protein, Total 7.5 g/dL (6.4-8.2); Sodium Level 138 mEq/L (136-145); Troponin High Sensitivity 93.5 pg/mL (<58.9)
[2024-11-09 06:40] LABS: AST/SGOT < 10 U/L (15-37)
[2024-11-09] MEDS: FUROSEMIDE 40 MG TABLET PO SCH (08:26)
--- NOTE | 2024-11-09 10:54 | P.PN ---
Subjective Date of Service: 11/09/24 Chief Complaint: Non-STEMI acute on chronic renal failure pulmonary edema Subjective: Improving (Patient is improving he is doing better denies any shortness of breath or chest pain significant history of coronary artery disease sending renal function) Review of Systems 10-point ROS is otherwise unremarkable Physical Examination - Vital Signs Temperature: 97.8 F Blood Pressure: 115/62 Pulse: 82 Respirations: 20 Pulse Ox (%): 99 - Physical Exam General: Alert, Oriented x3 Neck: Supple Respiratory: Clear to auscultation bilaterally Cardiovascular: No edema, Regular rate/rhythm, Normal S1 S2 Assessment And Plan - Current Problems (Diagnosis) (1) Acute on chronic renal failure Current Visit: Yes Status: Acute Plan: Patient is doing better denies any shortness of breath his renal function is worse seen by nephrology most likely is going to have to undergo dialysis non- STEMI troponins probably elevated from his underlying heart failure possible cardiac cath after his started on dialysis Qualifiers: Chronic kidney disease stage: stage 4 (GFR 15-29) Physician Review: Patient Assessed, Agree with Above Assessment and Plan
[2024-11-09] MEDS: CALCIUM ACETATE 667 MG TAB PO SCH (11:15)
--- NOTE | 2024-11-09 11:40 | RAD REPORT ---
EXAM: XR Abdomen 1 View (KUB) HISTORY: [facility] MA[facility] Abd distention COMPARISON: None FINDINGS: Single view of the abdomen shows a nonspecific, nonobstructive bowel gas pattern. Up to mod erate stool burden along the ascending colon. No suspicious calcifications are seen. The bones are unremarkable. IMPRESSION: Up to moderate stool burden along the ascending colon.
[2024-11-10 05:16] LABS: Hepatitis B Core Ab, Total Nonreactive (Nonreactive); Hepatitis B surface AG Interp. Nonreactive (Nonreactive)
[2024-11-10 05:17] LABS: HBsAG Nonreactive Report Report
[2024-11-10 06:39] LABS: Absolute Basophils 0.1 K/uL (0-0.5); Absolute Eosinophils 0.2 K/uL (0-0.5); Absolute Lymphocytes (CBC) 1.1 K/uL (0.7-4.9); Absolute Monocytes 0.6 K/uL (0.1-1.3); Absolute Neutrophil 3.6 K/uL (1.8-8.0); Basophils % 0.9 % (0-1.3); Eosinophils % 4.1 % (0-4.4); Hematocrit 25.8 % (39.6-49.0); Hemoglobin 8.8 g/dL (13.6-17.9); MCH 29.2 pg (27.0-35.0); MCHC 34.1 g/dL (32.0-36.0); MCV 85.7 fL (80-100); MPV 8.2 fL (7.6-11.3); Monocytes % 10.9 % (3.3-12.3); Neutrophils % 64.1 % (41.7-73.7); Nucleated Red Blood Cells % 0.1 % (0-0); Platelets 222 thou/uL (152-406); RBC Red Blood Cell Count 3.01 M/uL (4.33-5.43); Red Cell Distribution Width 14.3 % (12.1-15.2)
--- NOTE | 2024-11-10 06:52 | ECHO ---
HEIGHT: 0 ft 5.11 in WEIGHT: 170 lb 0 oz DATE OF STUDY: 11/07/[address]: Meliton Mirza MD 2-DIMENSIONAL: YES M.MODE: YES DOPPLER: YES COLOR FLOW: YES TDS: PORTABLE: YES DEFINITY: BUBBLE STUDY: DIAGNOSIS: CONGESTIVE HEART FAILURE CARDIAC HISTORY: CATHERIZATION: YES SURGERY: NO PROSTHETIC VALVE: NO PACEMAKER: NO MEASUREMENTS (cm) DIASTOLIC (NORMALS) SYSTOLIC (NORMALS) IVSd 1.2 (0.6-1.2) LA Diam 4.2 (1.9-4.0) LVEF 35-40% LVIDd 6.3 (3.5-5.7) LVIDs 4.7 (2.0-3.5) %FS 25% LVPWd 1.3 (0.6-1.2) Ao Diam 3.0 (2.0-3.7) 2 DIMENSIONAL ASSESSMENT: RIGHT ATRIUM: NORMAL LEFT ATRIUM: NORMAL RIGHT VENTRICLE: NORMAL LEFT VENTRICLE: MILDLY DILATED TRICUSPID VALVE: TRACE TRICUSPID REGURGITATION MITRAL VALVE: TRACE MITRAL REGURGITATION PULMONIC VALVE: NORMAL AORTIC VALVE: TRACE AORTIC REGURGITATION PERICARDIAL EFFUSION: NONE AORTIC ROOT: NORMAL LEFT VENTRICULAR WALL MOTION: MODERATELY GLOBAL HYPOKINESIS DOPPLER/COLOR FLOW: GRADE II DIASTOLIC DYSFUNCTION COMMENTS: 1. MODERATELY REDUCED LEFT VENTRICULAR SYSTOLIC FUNCTION, EJECTION FRACTION 35-40%, MODERATE GLOBAL HYPOKINESIS 2. GRADE II DIASTOLIC DYSFUNCTION 3. NORMAL FILLING PRESSURE (RIGHT ATRIAL PRESSURE 0-5 mmHg) TECHNOLOGIST: OMAR DONOVAN
[2024-11-10 07:16] LABS: Ferritin 204.3 ng/mL (26-388)
[2024-11-10] MEDS: CALCITROL 0.25 MCG CAP PO SCH (09:10)
[2024-11-10] MEDS: NA CHLORIDE 0.9% 1,000 ML IV SCH (13:25)
--- NOTE | 2024-11-10 13:37 | RAD REPORT ---
EXAMINATION: ONE VIEW CHEST XR CLINICAL INDICATION: chf vs pneumonia TECHNIQUE: Frontal chest projection is submitted. Examination is limited by patient positioning and t echnique. COMPARISON: 11/06/2024 FINDINGS: Mild interstitial pulmonary edema. The heart is mildly to moderately enlarged. No displaced fractures identified. IMPRESSION: Mild CHF. Findings are mildly improved since comparison study.
[2024-11-10] MEDS: SODIUM BICARB 325 MG TAB PO SCH (21:15)
--- NOTE | 2024-11-10 22:08 | PN ---
Date of Progress Note: 11/10/2024 Chief Complaint: Shortness of breath, abdominal pain. Subjective: The patient presented to the hospital because of shortness of breath. He was found to h ave pulmonary edema, congestive heart failure exacerbation. The patient has history of chronic kidne y disease stage 4, advancing to stage 5. Serum creatinine increased during this admission, and GFR d ropped from 16 to 11. The patient was treated with diuretics. He received IV Lasix. The patient de nies PND or orthopnea. Chest x-ray showed improvement of pulmonary edema. Physical Examination: Lungs: Clear to auscultation bilaterally. Heart: S1, S2. Abdomen: Soft, benign. Extremities: No edema. Review of Systems: Denies chest pain, palpitations. Denies syncope. Denies . Impression And Plan: Acute kidney injury on chronic kidney disease stage 4. GFR dropped to 10. The patient was started on mild hydration with normal saline. Renal ultrasound showed no hydronephrosis . The patient denies lower urinary tract symptom. Congestive heart failure exacerbation. Currently , the patient is slightly hypovolemic. Lasix was discontinued. The patient will continue IV fluids. Monitor renal function. Re-evaluate electrolytes and renal panel. EB/MODL Voice ID: [id number] Report ID: [id number]
[2024-11-11 06:28] LABS: Absolute Basophils 0.1 K/uL (0-0.5); Absolute Eosinophils 0.3 K/uL (0-0.5); Absolute Lymphocytes (CBC) 1.1 K/uL (0.7-4.9); Absolute Monocytes 0.7 K/uL (0.1-1.3); Absolute Neutrophil 3.4 K/uL (1.8-8.0); Basophils % 1.3 % (0-1.3); Eosinophils % 5.4 % (0-4.4); Hematocrit 25.7 % (39.6-49.0); Hemoglobin 8.8 g/dL (13.6-17.9); Lymphocytes % 19.5 % (15.3-44.8); MCH 29.5 pg (27.0-35.0); MCHC 34.2 g/dL (32.0-36.0); MCV 86.2 fL (80-100); Monocytes % 12.1 % (3.3-12.3); Neutrophils % 61.7 % (41.7-73.7); Nucleated Red Blood Cells % 0.1 % (0-0); Platelets 216 thou/uL (152-406); RBC Red Blood Cell Count 2.98 M/uL (4.33-5.43); Red Cell Distribution Width 13.7 % (12.1-15.2)
[2024-11-11 06:53] LABS: ALT/SGPT 16 U/L (16-61); Albumin 3.6 g/dL (3.4-5.0); Alkaline Phosphatase 112 U/L (45-117); Anion Gap 14.3 mEq/L (5.0-15.0); BUN Blood Urea Nitrogen 93 mg/dL (7-18); Bicarbonate 18 mEq/L (21-32); Bilirubin Total 0.4 mg/dL (0.2-1.0); Globulin 3.6 g/dL (2.3-3.5); Glucose Level 96 mg/dL (74-106); Magnesium 2.2 mg/dL (1.6-2.4); NT PRO-BNP 11976 pg/mL (<125); Potassium 4.3 mEq/L (3.5-5.1); Protein, Total 7.2 g/dL (6.4-8.2); Sodium Level 139 mEq/L (136-145)
[2024-11-11 06:55] LABS: Glomerular Filtration Rate 11 ml/min (=/>90)
[2024-11-11 06:59] LABS: AST/SGOT < 10 U/L (15-37)
[2024-11-11] MEDS ORDERED: CALCITROL 0.25 MCG CAP PO SCH (10:00)
[2024-11-11 13:03] VITALS: BP 131/76; TEMP 977
--- NOTE | 2024-11-11 21:29 | PN ---
Date of Progress Note: 11/11/2024 Chief Complaint: Acute on chronic kidney injury, cardiorenal syndrome. Subjective: The patient presented to the hospital because of shortness of breath. He was found to h ave pulmonary edema. Received Lasix and serum creatinine level increased. The patient afterwards veliz d IV fluids for gentle hydration and over 24 hours serum creatinine level has improved. The patient has nonoliguric urine output. He does not have uremic symptomatology. Review of Systems: Denies chest pain, palpitations. Physical Examination: Lungs: Clear to auscultation bilaterally. Heart: S1, S2. Abdomen: Soft. Extremities: No edema. Impression And Plan: Acute kidney injury, cardiorenal syndrome, prerenal azotemia. The patient was over diuresed. GFR dropped to 10. Over last 24 hours, serum creatinine level is improving. The pat ient is asymptomatic. Renal ultrasound did not show hydronephrosis. The patient denies lower urinar y tract symptoms. Congestive heart failure exacerbation improved with Lasix treatment. Currently, L asix on hold and the patient is tolerating IV fluids for control of prerenal azotemia. Continue low- sodium diet. The patient will have maintenance Lasix for management of chronic congestive heart fail ure. EB/MODL Voice ID: [id number] Report ID: [id number]
[2024-11-13 17:25] LABS: Ionized Calcium 3.9 mg/dL (4.7-5.5)
[2024-11-15 15:12] LABS: 1,25 Dihydroxy Vitamin D3 25 pg/mL; Vitamin D 1,25-Dihydroxy Total 25 pg/mL (18-72); Vitamin D,1,25-OH2, D2 <8 pg/mL
--- NOTE | 2024-11-19 01:06 | P.PN ---
Subjective Date of Service: 11/10/24 Patient looks to be doing well. Volume status is stable. Patient's diuresing effectively. Anticipate discharge in a.m. Review of Systems 10-point ROS is otherwise unremarkable Physical Examination - Vital Signs Temperature: 977 F Blood Pressure: 131/76 Pulse: 85 Respirations: 16 Pulse Ox (%): 100 - Physical Exam General: Alert, In no apparent distress, Oriented x3 Respiratory: Clear to auscultation bilaterally, Normal air movement Cardiovascular: Regular rate/rhythm, Normal S1 S2, No murmurs Gastrointestinal: Normal bowel sounds, Soft and benign, Non-distended, No tenderness, No rebound, No guarding Musculoskeletal: No clubbing, No swelling, No tenderness Neurological: Sensation intact, Cranial nerves 3-12 intact - Studies Medications List Reviewed: Yes Assessment & Plan - Problems (Diagnosis) (1) SANTOS (acute kidney injury) Status: Acute (2) Acute on chronic combined systolic (congestive) and diastolic (congestive) heart failure Status: Acute (3) Essential hypertension Status: Acute (4) Morbid obesity Status: Acute (5) Type 2 myocardial infarction due to heart failure Status: Acute (6) CAD (coronary artery disease) Status: Chronic Qualifiers: Coronary Disease-Associated Artery/Lesion type: [place] artery [place] vs. transplanted heart: [place] heart Associated angina: without angina Qualified Code(s): I25.10 - Atherosclerotic heart disease of [place] coronary artery without angina pectoris (7) Type 2 diabetes mellitus Status: Chronic Qualifiers: Diabetes mellitus chcf insulin use: without moth exterminator use Diabetes mellitus complication status: with kidney complications Diabetes mellitus complication detail: with chronic kidney disease Chronic kidney disease stage: stage 4 (severe) Qualified Code(s): E11.22 - Type 2 diabetes mellitus with diabetic chronic kidney disease; N18.4 - Chronic kidney disease, stage 4 (severe) (8) Metabolic syndrome Status: Acute - Plan Plan: 1. Acute CHF exacerbation; continue with diuresing. Continue with cardiac meds 2. SANTOS; patient renal function has stabilized. Patient felt to have cardio renal syndrome and possibly was over diuresed. Nephrology recommends Continuing with IV hydration. 3. Metabolic syndrome; strict blood pressure and blood sugar control 4. GI DVT prophylaxis Discharge Plan: Home Plan to discharge in: Greater than 2 days - Advance Directives Does patient have a Living Will: No Does patient have a Durable POA for Healthcare: No Physician Review: Patient Assessed, Agree with Above Assessment and Plan Critical Care: No Time Spent Managing PTS Care (In Minutes): 35
--- NOTE | 2024-11-19 01:09 | P.DS ---
Discharge Date: 11/11/24 Disposition: ROUTINE DISCHARGE Discharge Condition: GOOD Reason for Admission: Non-STEMI acute on chronic renal failure pulmonary edema - Problems (1) SANTOS (acute kidney injury) Status: Acute (2) Acute on chronic combined systolic (congestive) and diastolic (congestive) heart failure Status: Acute (3) Essential hypertension Status: Acute (4) Morbid obesity Status: Acute (5) Type 2 myocardial infarction due to heart failure Status: Acute (6) CAD (coronary artery disease) Status: Chronic Qualifiers: Coronary Disease-Associated Artery/Lesion type: [place] artery [place] vs. transplanted heart: [place] heart Associated angina: without angina Qualified Code(s): I25.10 - Atherosclerotic heart disease of [place] coronary artery without angina pectoris (7) Type 2 diabetes mellitus Status: Chronic Qualifiers: Diabetes mellitus intermediate insulin use: without exterminator use Diabetes mellitus complication status: with kidney complications Diabetes mellitus complication detail: with chronic kidney disease Chronic kidney disease stage: stage 4 (severe) Qualified Code(s): E11.22 - Type 2 diabetes mellitus with diabetic chronic kidney disease; N18.4 - Chronic kidney disease, stage 4 (severe) (8) Metabolic syndrome Status: Acute Brief History of Present Illness: Patient is a 74-year-old male with past medical history of diabetes type 2, hypertension, CHF, cardiac stent x 1 in 2022, CKD, [facility] to the ED with abdominal distention and shortness of breath X1week. Patient also reports having intermittent constipation/diarrhea but denies nausea or vomiting. Patient states that approximately 8 months ago he discontinued use of Lasix as he was told he did not need it anymore and was only started on it after he was diagnosed with COVID-19. Patient reports being cleared from all of his diagnoses and discontinuing all of his home meds. Workup includes troponin 156, creatinine 3.88, BNP 18K, and chest x-ray with extensive bilateral pulmonary opacities are present likely pulmonary edema or infection/pneumonia. The heart is mildly prominent in size. No displaced fractures identified. Patient received IV Lasix and aspirin while in the ED and is now being admitted for volume overload this time. Hospital Course: Patient was diuresed and patient is volume status improved initially. However patient was over diuresed and patient went into renal failure. Patient was given IV fluids and renal function is improving. At this time patient is doing well and patient is clinically stable for discharge. Vital Signs/Physical Exam: Temp Pulse Resp BP Pulse Ox 977 F H 85 16 131/76 100 11/19/24 01:06 11/19/24 01:06 11/19/24 01:06 11/19/24 01:06 11/19/24 01:06 General: Alert, In no apparent distress, Oriented x3 Laboratory Data at Discharge: WBC 5.50 thou/uL (4.3-10.9) 11/11/24 06:07 Hgb 8.8 g/dL (13.6-17.9) L 11/11/24 06:07 Hct 25.7 % (39.6-49.0) L 11/11/24 06:07 Plt Count 216 thou/uL (152-406) 11/11/24 06:07 Sodium 139 mEq/L (136-145) 11/11/24 06:07 Potassium 4.3 mEq/L (3.5-5.1) 11/11/24 06:07 BUN 93 mg/dL (7-18) H 11/11/24 06:07 Creatinine 5.18 mg/dL (0.70-1.30) H 11/11/24 06:07 Glucose 96 mg/dL (74-106) 11/11/24 06:07 Phosphorus Cancelled 11/09/24 07:00 Magnesium 2.2 mg/dL (1.6-2.4) 11/11/24 06:07 Total Bilirubin 0.4 mg/dL (0.2-1.0) 11/11/24 06:07 AST < 10 U/L (15-37) L 11/11/24 06:07 ALT 16 U/L (16-61) 11/11/24 06:07 Alkaline Phosphatase 112 U/L (45-117) 11/11/24 06:07 Home Medications: Aspirin [Aspirin EC] 81 mg PO DAILY #30 tab 11/13/23 Atorvastatin Calcium [Lipitor] 40 mg PO BEDTIME #30 tab 11/13/23 Furosemide [Lasix*] 20 mg PO DAILY #90 tab 01/17/24 carvediloL [Coreg*] 3.125 mg PO BID #180 tab 01/17/24 Clopidogrel Bisulfate [Plavix*] 75 mg PO DAILY 90 Days #90 tab 06/09/24 Furosemide [Lasix*] 40 mg PO DAILY 90 Days #90 tab 02/03/24 Pantoprazole [Protonix Tab*] 40 mg PO DAILY 30 Days #30 tab 02/03/24 Calcitrol [Rocaltrol*] 0.5 mcg PO DAILY #60 cap 11/11/24 Calcium Acetate [Phoslo*] 1,334 mg PO TIDWM #90 tab 11/11/24 Calcium Carbonate [Tums Regular*] 500 mg PO QID PRN #120 tab 11/11/24 Na Bicarb Tab [Sodium Bicarb 325 MG Tab*] 650 mg PO BID #120 tab 11/11/24 New Medications: Calcium Acetate [Phoslo*] 1,334 mg PO TIDWM #90 tab Calcitrol [Rocaltrol*] 0.5 mcg PO DAILY #60 cap Na Bicarb Tab [Sodium Bicarb 325 MG Tab*] 650 mg PO BID #120 tab Calcium Carbonate [Tums Regular*] 500 mg PO QID PRN #120 tab PRN Reason: Indigestion Physician Discharge Instructions: -DC IV and DC home -Follow-up with PCP in 1 to 2 weeks -Follow-up with Nephrology in 1 to 2 weeks -Please call Dr. Kemp at [phone] if any questions regarding hospital stay -Please call nursing station at [phone] if any nursing or medication questions -Return to the emergency room if symptoms worsen Diet: Renal Activity: Fall precautions Followup: Rosario Wu MD [COURTESY - CAN ADMIT] - 1-2 Weeks Nel Henley [Primary Care Provider] - 1-2 Weeks Time spent managing pt's care (in minutes): 35
== END 2024-11-11 15:37 | disposition home or self-care (01) | DRG 280 ==
LOC: ER 11:46 → ERHOLD 15:59 → 2ND 16:46 → OBSVTOIN 11-08 09:31
PROVIDERS: ADMIT Family Medicine; ATTEND Hospitalist
DX: I13.0 Hypertensive heart and chronic kidney disease with heart failure and stage 1 through stage 4 chronic kidney disease, or unspecified chronic kidney disease (principal); I50.23 Acute on chronic systolic (congestive) heart failure; I21.A1 Myocardial infarction type 2; N17.9 Acute kidney failure, unspecified; Z68.41 Body mass index [BMI] 40.0-44.9, adult; N18.4 Chronic kidney disease, stage 4 (severe); E66.01 Morbid (severe) obesity due to excess calories; E11.22 Type 2 diabetes mellitus with diabetic chronic kidney disease; K59.00 Constipation, unspecified; Z88.8 Allergy status to other drugs, medicaments and biological substances; Z90.49 Acquired absence of other specified parts of digestive tract; Z95.5 Presence of coronary angioplasty implant and graft; Z86.16 Personal history of COVID-19; Z79.82 Long term (current) use of aspirin; Z79.02 Long term (current) use of antithrombotics/antiplatelets; Z79.899 Other long term (current) drug therapy; Z11.52 Encounter for screening for COVID-19
CPT/HCPCS: 36415; 71045; 74018; 76770; 80048; 80053; 80076; 81001; 82306; 82330; 82652; 82728; 82947; 83036; 83540; 83735; 83880; 83970; 84100; 84145; 84439; 84443; 84466; 84484; 85025; 86704; 86706; 87340; 87428; 93005; 93306; 99285; G0378; J1940; J2405; J7030; P9047

== ENCOUNTER 2024-11-26 10:24 | Observation (INO) | payer OTHER ==
[2024-11-26] MEDS ORDERED: ASPIRIN 81 MG CHEWABLE TABLET ONE (10:44)
[2024-11-26 10:53] LABS: Absolute Basophils 0.1 K/uL (0-0.5); Absolute Eosinophils 0.2 K/uL (0-0.5); Absolute Lymphocytes (CBC) 0.9 K/uL (0.7-4.9); Absolute Monocytes 0.5 K/uL (0.1-1.3); Absolute Neutrophil 5.9 K/uL (1.8-8.0); Basophils % 0.7 % (0-1.3); Eosinophils % 2.6 % (0-4.4); Hematocrit 24.5 % (39.6-49.0); Hemoglobin 8.3 g/dL (13.6-17.9); Lymphocytes % 12.5 % (15.3-44.8); MCHC 33.7 g/dL (32.0-36.0); MCV 86.2 fL (80-100); MPV 8.2 fL (7.6-11.3); Monocytes % 6.3 % (3.3-12.3); Neutrophils % 77.9 % (41.7-73.7); Platelets 217 thou/uL (152-406); RBC Red Blood Cell Count 2.85 M/uL (4.33-5.43); Red Cell Distribution Width 14.7 % (12.1-15.2)
[2024-11-26 10:58] LABS: PT Prothrombin Time 13.9 SECONDS (10-13.0); Protime INR 1.23
--- NOTE | 2024-11-26 11:14 | RAD REPORT ---
EXAM: Chest Single View HISTORY: 74 years Male CHEST PAIN COMPARISON: 11/10/2024 FINDINGS: LUNGS/PLEURA: Similar prominence of the pulmonary interstitium. CARDIAC/MEDIASTINUM: Mild cardiomegaly UPPER ABDOMEN: No significant abnormality. BONES: No acute abnormality. LINES/TUBES/OTHER: N/A IMPRESSION: Unchanged interstitial prominence which may reflect edema.
[2024-11-26 11:44] LABS: Anion Gap 13.4 mEq/L (5.0-15.0); Magnesium 1.9 mg/dL (1.6-2.4); Potassium 4.4 mEq/L (3.5-5.1)
--- NOTE | 2024-11-26 12:09 | EDPHYS ---
Physician Documentation [facility] [place] Name: Sylvain Veronica Age: 74 yrs Sex: Male : 1950 Arrival Date: 11/26/2024 Time: 10:24 Bed 27 Private MD: Nel Henley ED Physician Tristin Ricks HPI: 11/26 10:32 This 74 yrs old Male presents to ER via Ambulatory with complaints of Chest ms3 Tightness, Nausea. 10:32 74-year-old male with past medical history of congestive heart failure, diabetes, ms3 hypertension, kidney disease presents to the emergency department for chest pain, nausea, diarrhea that began last night. Patient states his discomfort is a 2/10. He denies any alleviating or inciting factors.. Historical: - Allergies: 10:29 Brilinta; ld1 - PMHx: 10:29 Congestive heart failure; Systolic; Diabetes - IDDM; Hypertensive disorder; kidney ld1 disease; CKD 3; - PSHx: 10:29 Appendectomy; cardiac stents; Cholecystectomy; ld1 - Immunization history:: Adult Immunizations up to date. - Infectious Disease History:: Denies. - Social history:: Smoking status: Patient denies any tobacco usage or history of. ROS: 10:32 Constitutional: Negative for fever, and chills. ms3 10:32 Respiratory: Negative for shortness of breath, cough, wheezing, and pleuritic chest pain, 10:32 MS/Extremity: Negative for injury and deformity, Skin: Negative for injury, rash, and discoloration, 10:32 Cardiovascular: Positive for chest pain, 10:32 Abdomen/GI: Positive for nausea, diarrhea, Negative for vomiting, Exam: 10:32 Constitutional: This is a well developed, well nourished patient who is awake, alert, ms3 and in no acute distress. Cardiovascular: Regular rate and rhythm with a normal S1 and S2. No gallops, murmurs, or rubs. Normal PMI, no JVD. No pulse deficits. Respiratory: Lungs have equal breath sounds bilaterally, clear to auscultation and percussion. No rales, rhonchi or wheezes noted. No increased work of breathing, no retractions or nasal flaring. Abdomen/GI: Soft, non-tender, with normal bowel sounds. No distension or tympany. No guarding or rebound. No evidence of tenderness throughout. Skin: Warm, dry with normal turgor. Normal color with no rashes, no lesions, and no evidence of cellulitis. MS/ Extremity: Pulses equal, no cyanosis. Neurovascular intact. Full, normal range of motion. 11:48 ECG was reviewed by the Attending Physician. ms3 Vital Signs: 10:31 Weight 86.18 kg; Height 5 ft. 10 in. ; Pain 7/10; ld1 10:45 BP 159 / 91; Pulse 96; Resp 18; Pulse Ox 100% on R/A; ld1 10:45 Temp 98.2(O); ld1 10:31 Body Mass Index 27.26 (86.18 kg, 177.8 cm) ld1 10:31 Pain Scale: Adult ld1 MDM: 10:32 Medical Screening Exam initiated ms3 10:32 Differential diagnosis: abnormal EKG, acute pericarditis, coronary artery disease. The ms3 patient was given aspirin in the Emergency Department. 14:13 Data reviewed: vital signs, nurses notes, lab test result(s), EKG, radiologic studies, ms3 and as a result, I will admit patient. Consideration of Admission/Observation Patient was admitted/placed on observation. Management of patient was discussed with the following: Hospitalist: Dr Pires. Salesperson Wigs: Dr Peralta. I considered the following discharge prescriptions or medication management in the emergency department Medications were administered in the Emergency Department. See MAR. Independent interpretation of the following test(s) in the Emergency Department EKG: See my EKG interpretation above. Counseling: I had a detailed discussion with the patient and/or guardian regarding the historical points, exam findings, and any diagnostic results supporting the discharge/admit diagnosis, lab results, radiology results, the need for further work-up and treatment in the hospital. ED course: Discussed necessity for admission with patient. Patient understands and agrees with plan. All questions were answered.. 11/26 10:27 Order name: Basic Metabolic Panel; Complete Time: 12:00 ms3 11/26 10:27 Order name: CBC with Diff; Complete Time: 10:57 ms3 11/26 10:27 Order name: Magnesium; Complete Time: 12:00 ms3 11/26 10:27 Order name: NT PRO-BNP; Complete Time: 12:00 ms3 11/26 10:27 Order name: PT-INR; Complete Time: 11:15 ms3 11/26 10:27 Order name: Troponin HS; Complete Time: 12:00 ms3 11/26 10:49 Order name: Lipase; Complete Time: 12:00 EDMS 11/26 13:00 Order name: Basic Metabolic Panel EDMS 11/26 13:00 Order name: Basic Metabolic Panel EDMS 11/26 13:00 Order name: Basic Metabolic Panel EDMS 11/26 13:00 Order name: Basic Metabolic Panel EDMS 11/26 13:00 Order name: T4 Free EDMS 11/26 13:00 Order name: Thyroid Stimulating Hormone EDMS 11/26 13:01 Order name: Urinalysis w/ reflexes EDMS 11/26 13:01 Order name: Basic Metabolic Panel EDMS 11/26 13:01 Order name: Basic Metabolic Panel EDMS 11/26 13:01 Order name: CBC with Automated Diff EDMS 11/26 13:01 Order name: CBC with Automated Diff EDMS 11/26 13:01 Order name: CBC with Automated Diff EDMS 11/26 13:01 Order name: CBC with Automated Diff EDMS 11/26 13:01 Order name: CBC with Automated Diff EDMS 11/26 13:01 Order name: CBC with Automated Diff EDMS 11/26 13:01 Order name: Lipid Profile EDMS 11/26 13:01 Order name: Lipid Profile EDMS 11/26 13:01 Order name: Magnesium EDMS 11/26 13:01 Order name: Magnesium EDMS 11/26 13:01 Order name: Magnesium EDMS 11/26 13:01 Order name: Magnesium EDMS 11/26 13:01 Order name: Magnesium EDMS 11/26 13:01 Order name: Magnesium EDMS 11/26 13:01 Order name: Phosphorus EDMS 11/26 13:01 Order name: Phosphorus EDMS 11/26 13:01 Order name: Phosphorus EDMS 11/26 13:01 Order name: Phosphorus EDMS 11/26 13:01 Order name: Phosphorus EDMS 11/26 13:01 Order name: Phosphorus EDMS 11/26 13:01 Order name: Troponin High Sensitivity EDMS 11/26 13:01 Order name: Troponin High Sensitivity EDMS 11/26 13:01 Order name: Troponin High Sensitivity EDMS 11/26 18:55 Order name: Troponin High Sensitivity EDMS 11/26 10:27 Order name: XRAY Chest (1 view); Complete Time: 11:15 ms3 11/26 13:00 Order name: Echo with Doppler EDMS 11/26 10:27 Order name: EKG; Complete Time: 10:27 ms3 11/26 13:03 Order name: CONS Physician Consult EDMS 11/26 10:27 Order name: Cardiac monitoring; Complete Time: 10:43 ms3 11/26 10:27 Order name: EKG - Nurse/Tech; Complete Time: 10:45 ms3 11/26 10:27 Order name: IV Saline Lock; Complete Time: 10:43 ms3 11/26 10:27 Order name: Labs collected and sent; Complete Time: 10:43 ms3 11/26 10:27 Order name: O2 Per Protocol; Complete Time: 10:43 ms3 11/26 10:27 Order name: O2 Sat Monitoring; Complete Time: 10:43 ms3 EC:48 Rate is 98 beats/min. Rhythm is regular. QRS [place] is Normal. [place] interval is normal. ST ms3 Segment is depressed in leads II, III, aVF, V5, V6. Clinical impression: Abnormal EKG without significant change. Interpreted by me. Reviewed by me. Administered Medications: 10:45 Drug: Aspirin PO Chewable Tablet 324 mg PO once; 81 mg tablets x 4 Route: PO; ld1 11:26 Follow up: Response: No adverse reaction ld1 12:20 Drug: Furosemide IVP 40 mg IVP once; give over 2 minutes Route: IVP; Site: right ld1 antecubital; Disposition Summary: 11/26/24 12:09 Hospitalization Ordered Notes: Hospitalization Status: Inpatient Admission ms3 Provider: Walter Pires ms3 Condition: Stable ms3 Problem: new ms3 Symptoms: are unchanged ms3 Bed/Room Type: Standard ms3 Location: Telemetry/MedSurg (Inpatient)(11/26/24 17:29) sp Room Assignment: 204(11/26/24 17:29) sp Diagnosis - Heart failure, unspecified ms3 - Chest pain, unspecified ms3 - Essential (primary) hypertension ms3 - Elevated troponin ms3 - Anemia, unspecified ms3 Forms: - Medication Reconciliation Form ms3 - SBAR form ms3 - Leadership Thank You Letter ms3 Signatures: Dispatcher [employer] EDMS LmNixonSamantha sp Ricks, Tristin, DO DO ms3 Nelly Ricks, RN RN ld1 Veronique Lazaro, RN RN kb3 Corrections: (The following items were deleted from the chart) 10:27 10:27 BASIC METABOLIC PANEL+C.LAB.BRZ ordered. EDMS EDMS 10:27 10:27 CBC+H.LAB.BRZ ordered. EDMS EDMS 10:27 10:27 MAGNESIUM+C.LAB.BRZ ordered. EDMS EDMS 10:27 10:27 PROBNP+C.LAB.BRZ ordered. EDMS EDMS 10:27 10:27 PROTIME (+INR)+COAG.LAB.BRZ ordered. EDMS EDMS 10:27 10:27 Troponin High Sensitivity+C.LAB.BRZ ordered. EDMS EDMS 10:49 10:33 LIPASE+C.LAB.BRZ ordered. EDMS EDMS 13:14 12:09 Telemetry/MedSurg (Inpatient) ms3 kb3 13:14 12:09 ms3 kb3 17:29 13:14 BR ER HOLD kb3 sp 17:29 13:14 ERHOLD- kb3 sp
--- NOTE | 2024-11-26 12:09 | ER ---
Nurse's Notes [facility] Name: Sylvain Veronica Age: 74 yrs Sex: Male : 1950 Arrival Date: 11/26/2024 Time: 10:24 Bed 27 Private MD: Nel Henley Diagnosis: Heart failure, unspecified;Chest pain, unspecified;Essential (primary) hypertension;Elevated troponin;Anemia, unspecified Presentation: 11/26 10:30 Chief complaint: Patient states: Chest pain since last night. High blood pressure. ld1 Diarrhea, nausea. Coronavirus screen: At this time, the client does not indicate any symptoms associated with coronavirus-19. Ebola Screen: No symptoms or risks identified at this time. Risk Assessment: Do you want to hurt yourself or someone else? Patient reports no desire to harm self or others. Onset of symptoms was November 26, 2024. 10:30 Method Of Arrival: Ambulatory ld1 10:30 Acuity: JACKIE 3 ld1 13:20 Initial Sepsis Screen: Does the patient meet any 2 criteria? No. Patient's initial kc6 sepsis screen is negative. Does the patient have a suspected source of infection? No. Patient's initial sepsis screen is negative. Triage Assessment: 10:30 General: Appears in no apparent distress. comfortable, Behavior is calm, cooperative, ld1 appropriate for age. Pain: Complains of pain in anterior aspect of left upper chest and left breast Pain does not radiate. Pain currently is 7 out of 10 on a pain scale. Quality of pain is described as throbbing, Pain began suddenly, Is continuous. EENT: No signs and/or symptoms were reported regarding the EENT system. Neuro: Level of Consciousness is awake, alert, obeys commands, Oriented to person, place, time, situation. Cardiovascular: Reports chest pain, Capillary refill < 3 seconds Patient's skin is warm and dry. Respiratory: Airway is patent Respiratory effort is even, unlabored. GI: Abdomen is round non-distended. : No signs and/or symptoms were reported regarding the genitourinary system. Derm: No signs and/or symptoms reported regarding the dermatologic system. Musculoskeletal: No signs and/or symptoms reported regarding the musculoskeletal system. Historical: - Allergies: 10:29 Brilinta; ld1 - PMHx: 10:29 Congestive heart failure; Systolic; Diabetes - IDDM; Hypertensive disorder; kidney ld1 disease; CKD 3; - PSHx: 10:29 Appendectomy; cardiac stents; Cholecystectomy; ld1 - Immunization history:: Adult Immunizations up to date. - Infectious Disease History:: Denies. - Social history:: Smoking status: Patient denies any tobacco usage or history of. Screenin:46 [facility] ED Fall Risk Assessment (Adult) History of falling in the last 3 months, ld1 including since admission No falls in past 3 months (0 pts) Confusion or Disorientation No (0 pts) Intoxicated or Sedated No (0 pts) Impaired Gait No (0 pts) Mobility Assist Device Used No (0 pt) Altered Elimination No (0 pt) Score/Fall Risk Level 0 - 2 = Low Risk Oriented to surroundings, Hourly rounding (assess needs \T\ fall precautionary measures) done. Abuse screen: Denies threats or abuse. Denies injuries from another. Nutritional screening: No deficits noted. Tuberculosis screening: No symptoms or risk factors identified. Assessment: 10:45 Reassessment: See triage assessment. General:. ld1 13:19 Reassessment: Patient appears in no apparent distress at this time. Patient and/or kc6 family updated on plan of care and expected duration. Pain level reassessed. Patient is alert, oriented x 3, equal unlabored respirations, skin warm/dry/pink. Vital Signs: 10:31 Weight 86.18 kg; Height 5 ft. 10 in. ; Pain 7/10; ld1 10:45 BP 159 / 91; Pulse 96; Resp 18; Pulse Ox 100% on R/A; ld1 10:45 Temp 98.2(O); ld1 10:31 Body Mass Index 27.26 (86.18 kg, 177.8 cm) ld1 10:31 Pain Scale: Adult ld1 ED Course: 10:24 Patient arrived in ED. as 10:26 Nel Henley is Private Physician. as 10:26 Tristin Ricks DO is Attending Physician. ms3 10:30 Arm band placed on right wrist. ld1 10:31 Triage completed. ld1 10:39 XRAY Chest (1 view) In Process Unspecified. EDMS 10:43 Nelly Ricks, RN is Primary Nurse. ld1 10:46 Patient has correct armband on for positive identification. Placed in gown. Bed in low ld1 position. Call light in reach. Side rails up X2. desk monitor on. Pulse ox on. NIBP on. Door closed. Noise minimized. Warm blanket given. 10:46 No provider procedures requiring assistance completed. Inserted saline lock: 20 gauge ld1 in right forearm, using aseptic technique. Blood collected. Flushed with 10 mL NS. Patient maintains SpO2 saturation greater than 95% on room air. 11:04 EKG done, by ED staff, reviewed by Tristin Ricks DO. am7 11:55 Notified ED physician of a critical lab result(s). Troponin 89.0. kc6 12:07 Watler Pires is Hospitalizing Provider. ms3 13:20 Patient admitted, IV remains in place. kc6 Administered Medications: 10:45 Drug: Aspirin PO Chewable Tablet 324 mg PO once; 81 mg tablets x 4 Route: PO; ld1 11:26 Follow up: Response: No adverse reaction ld1 12:20 Drug: Furosemide IVP 40 mg IVP once; give over 2 minutes Route: IVP; Site: right ld1 antecubital; Medication: 10:46 VIS not applicable for this client. ld1 Outcome: 12:09 Decision to Hospitalize by Provider. ms3 13:20 Admitted to ER Hold. Please see [facility] for further documentation. kc6 13:20 Condition: good 13:20 Instructed on the need for admit, 19:46 Patient left the ED. lg3 Signatures: Dispatcher [employer] EDMS Patti Rucker Lacie, RN RN lg3 Tristin Ricks DO DO ms3 Nelly Ricks RN RN ld1 Xuan Calhoun RN RN kc6 Vika Pat am7 Corrections: (The following items were deleted from the chart) 10:49 10:43 LIPASE+C.LAB.BRZ drawn and sent. ld1 EDMS
[2024-11-26] MEDS ORDERED: FUROSEMIDE 40 MG/4 ML VIAL ONE ×2 (12:15→17:15)
[2024-11-26] MEDS ORDERED: ACETAMINOPHEN 325 MG TABLET PO PRN (12:51)
--- NOTE | 2024-11-26 13:13 | P.HP ---
Certification for Inpatient Patient admitted to: Observation With expected LOS: <2 Midnights Patient will require the following post-hospital care: None Practitioner: I am a practitioner with admitting privileges, knowledge of patient current condition, hospital course, and medical plan of care. Services: Services provided to patient in accordance with Admission requirements found in Title 42 Section 412.3 of the Code of Federal Regulations Patient History Date of Service: 11/26/24 History of Present Illness: Sylvain Veronica is a 74 year old male with Pmhx Congestive heart failure; Systolic; Diabetes - IDDM; Hypertensive disorder; kidney disease; CKD 3 who presents to the ED with Chest pain that began last night. He reports the chest pain has become intermittent. EKG showing ST depressions at leads II, AVF, V5, V6. Laboratory evaluation significant for troponin 89, BUN/creatinine 52/3.68, GFR 17, H&H 8.3/24.5. Chest x-ray reports "Unchanged interstitial prominence which may reflect edema." Sylvain will be admitted to hospitalist service for further evaluation and treatment of NSTEMI with ST depressions, Cardiology consulted. Allergies No Known Allergies Allergy (Verified 02/03/24 19:10) Home Medications: Aspirin [Aspirin EC] 81 mg PO DAILY #30 tab 11/13/23 Pantoprazole [Protonix Tab*] 40 mg PO DAILY 30 Days #30 tab 02/03/24 Calcium Acetate [Phoslo*] 1,334 mg PO TIDWM #90 tab 11/11/24 Calcitrol [Rocaltrol*] 0.5 mcg PO DAILY 11/26/24 - Past Medical/Surgical History Diabetic: Yes -: Diabetes mellitus type 2insulin-dependent -: Hypertension -: Chronic systolic CHF with EF=40% -: CAD -: CKD III -: Cholecystectomy -: Cardiac catheterization: 2 stents -: appy Psychosocial/ Personal History: Patient is . Lives at home. - Family History Father -: Diabetes Mother -: Diabetes - Social History Smoking Status: Never smoker Alcohol use: No CD- Drugs: No Caffeine use: No Review of Systems Other: per HPI Physical Examination - Physical Exam General: Alert, In no apparent distress, Oriented x3 HEENT: Atraumatic, Normocephalic Neck: 2+ carotid pulse no bruit, JVD not distended Respiratory: Clear to auscultation bilaterally Cardiovascular: Normal pulses, Regular rate/rhythm, Normal S1 S2 Capillary refill: <2 Seconds Gastrointestinal: Normal bowel sounds, Soft and benign Musculoskeletal: No clubbing Integumentary: No rashes Neurological: Normal speech, Normal tone - Studies Laboratory Data (last 24 hrs) 11/26/24 11/26/24 11/26/24 10:41 10:41 10:41 WBC 7.60 Hgb 8.3 L Hct 24.5 L Plt Count 217 PT 13.9 H INR 1.23 Sodium 141 Potassium 4.4 BUN 52 H Creatinine 3.68 H Glucose 96 Magnesium 1.9 Lipase 41 11/26/24 10:32 WBC Hgb Hct Plt Count PT INR Sodium Potassium BUN Creatinine Glucose Magnesium Lipase Cancelled Assessment and Plan - Plan Assessment and Plan ST depression NSTEMI Systolic Congestive heart failure - EKG: ST depressions II, AVF,V5,V6 - troponin 89, Serial pending - Ordered transthoracic echocardiogram - chest x-ray "Unchanged interstitial prominence which may reflect edema." - Consult Cardiology - recommendations appreciated - S/P aspirin 324 mg PO x 1 in ED - Start daily baby aspirin and statin - Symptom control with PRN acetaminophen, morphine - continuous telemetry -TSH/FreeT4, A1C, lipid panel pending Diabetes - IDDM -Accu-Chek with sliding scale insulin CKD 3 -Consult nephrology Hypertensive disorder -Continue home medication DVT PPx heparin Full code LOS 24-hour OBS Discharge Plan: Home Plan to discharge in: 24 Hours - Advance Directives Does patient have a Living Will: No Does patient have a Durable POA for Healthcare: No
[2024-11-26 14:53] VITALS: BMI 27.1
[2024-11-26 15:23] LABS: Specific Gravity 1.009 (1.005-1.030); Sqamous Epithelial None Seen /HPF (None Seen); Urine Bacteria <20 /HPF (<20); Urine Bilirubin NEGATIVE (Negative); Urine Blood Trace (Negative); Urine Clarity Turbid (Clear); Urine Color Colorless (Yellow); Urine Crystals Unidentified Few /HPF (None Seen); Urine Culture Reflex Order NOT NEEDED; Urine Glucose NEGATIVE (Negative); Urine Ketones NEGATIVE (Negative); Urine Microscopic Reflex YN ORDER UMIC; Urine Nitrite NEGATIVE (Negative); Urine Protein TRACE (Negative); Urine RBC <5 /HPF (None Seen); Urine Urobilinogen Normal (Normal); Urine WBC <5 /HPF (<5)
[2024-11-26] MEDS: FUROSEMIDE 40 MG/4 ML VIAL IV SCH (17:00)
[2024-11-26] MEDS: HEPARIN 5000 UNIT/ML 1 ML VIAL SQ SCH (17:00)
[2024-11-26] MEDS ORDERED: HEPARIN 5000 UNIT/ML 1 ML VIAL ONE (17:15)
[2024-11-26] MEDS: ATORVASTATIN 40 MG TAB PO SCH (21:14)
[2024-11-27 05:06] LABS: Absolute Basophils 0.1 K/uL (0-0.5); Absolute Eosinophils 0.3 K/uL (0-0.5); Absolute Monocytes 0.4 K/uL (0.1-1.3); Absolute Neutrophil 3.6 K/uL (1.8-8.0); Basophils % 1.2 % (0-1.3); Eosinophils % 5.2 % (0-4.4); Hematocrit 24.2 % (39.6-49.0); Lymphocytes % 18.2 % (15.3-44.8); MCH 28.5 pg (27.0-35.0); MCHC 33.1 g/dL (32.0-36.0); MCV 85.9 fL (80-100); MPV 7.7 fL (7.6-11.3); Monocytes % 8.3 % (3.3-12.3); Neutrophils % 67.1 % (41.7-73.7); Platelets 235 thou/uL (152-406); RBC Red Blood Cell Count 2.82 M/uL (4.33-5.43); Red Cell Distribution Width 14.6 % (12.1-15.2)
[2024-11-27 05:33] LABS: Anion Gap 9.2 mEq/L (5.0-15.0); Magnesium 1.8 mg/dL (1.6-2.4); Phosphorus 4.8 mg/dL (2.5-4.9); Potassium 4.2 mEq/L (3.5-5.1); Thyroid Stimulating Hormone 0.631 uIU/mL (0.358-3.740)
[2024-11-27] MEDS ORDERED: CALCIUM ACETATE 667 MG TAB PO SCH (08:00)
--- NOTE | 2024-11-27 09:28 | P.CNS ---
Date of Consult: 11/27/24 Chief Complaint: NSTEMI History of Present Illness: Patient with PMH of CAD s/p PCI RCA ISR back in 12/2023, advanced CKD, diastolic HF, presented with fluttery sensation in chest, burning in epiagstric area, after he was prescribed some pill, most likely calcium that he has been taking 3 times a day, no palpitations, no syncope, no breathing problems. Allergies No Known Allergies Allergy (Verified 02/03/24 19:10) Home medications list reviewed: Yes Home Medications: Aspirin [Aspirin EC] 81 mg PO DAILY #30 tab 11/13/23 Pantoprazole [Protonix Tab*] 40 mg PO DAILY 30 Days #30 tab 02/03/24 Calcium Acetate [Phoslo*] 1,334 mg PO TIDWM #90 tab 11/11/24 Calcitrol [Rocaltrol*] 0.5 mcg PO DAILY 11/26/24 - Past Medical/Surgical History Diabetic: Yes -: Diabetes mellitus type 2insulin-dependent -: Hypertension -: Chronic systolic CHF with EF=40% -: CAD -: CKD III -: Cholecystectomy -: Cardiac catheterization: 2 stents -: appy Psychosocial/ Personal History: Patient is . Lives at home. - Family History Father Medical History: Diabetes Mother Medical History: Diabetes - Social History Smoking Status: Former smoker Alcohol use: No CD- Drugs: No Caffeine use: No Place of Residence: Home Review of Systems 10-point ROS is otherwise unremarkable Physical Examination Temp Pulse Resp BP Pulse Ox 97.9 F 88 18 133/74 95 11/27/24 08:00 11/27/24 08:00 11/27/24 08:00 11/27/24 08:00 11/27/24 08:00 General: Alert, In no apparent distress HEENT: Atraumatic, PERRLA, Mucous membr. moist/pink, EOMI, Sclerae nonicteric Neck: Supple, 2+ carotid pulse no bruit, No LAD, Without JVD or thyroid abnormality Respiratory: Clear to auscultation bilaterally, Normal air movement Cardiovascular: Regular rate/rhythm, Normal S1 S2 Gastrointestinal: Normal bowel sounds, No tenderness Musculoskeletal: No tenderness Integumentary: No rashes Neurological: Normal gait, Normal speech, Normal tone, Normal affect Lymphatics: No axilla or inguinal lymphadenopathy Laboratory Data (last 24 hrs) 11/26/24 11/26/24 11/26/24 10:41 10:41 10:41 WBC 7.60 Hgb 8.3 L Hct 24.5 L Plt Count 217 PT 13.9 H INR 1.23 Sodium 141 Potassium 4.4 BUN 52 H Creatinine 3.68 H Glucose 96 Magnesium 1.9 Lipase 41 11/26/24 10:32 WBC Hgb Hct Plt Count PT INR Sodium Potassium BUN Creatinine Glucose Magnesium Lipase Cancelled - Problems (1) CAD (coronary artery disease) Current Visit: No Status: Chronic Plan: Patient with PMH of mild LAD/LCX disease and PCI RCA ISR on 12/2023, enzymes are mild elevated, most likely type 2 [place] from [place] continue ASA 81 mg daily continue Plavix 75 mg daily continue Lipitor 40 mg daily start coreg 3.125 mg po BID No further inpatient cardiac work up needed outpatient follow up with cardiology. Qualifiers: Coronary Disease-Associated Artery/Lesion type: [place] artery [place] vs. transplanted heart: [place] heart Associated angina: without angina Qualified Code(s): I25.10 - Atherosclerotic heart disease of [place] coronary artery without angina pectoris (2) Chronic combined systolic and diastolic heart failure Current Visit: Yes Status: Acute Plan: patient looks euvolemic on exam, his elevated BNP is mot likely from advanced kidney disease, start Coreg 3.125 mg po BID Stop Lasix Get nephrology consult as his kidney function is worsening can not use GRACE inhibitors due to low GFR, pending nephrology team mike mmendations
[2024-11-27] MEDS: ASPIRIN EC 81 MG TAB PO SCH (10:00)
[2024-11-27] MEDS: CLOPIDOGREL 75 MG TABLET PO SCH (10:00)
[2024-11-27] MEDS: PANTOPRAZOLE 40MG TABLET PO SCH (10:00)
[2024-11-27] MEDS: CALCITROL 0.25 MCG CAP PO SCH (10:01)
[2024-11-27] MEDS: MAGNESIUM SULFATE 1 gm IVPB 1 GM/100 ML BAG IV ONE (10:01)
[2024-11-27] MEDS: EPOETIN ALFA-EPBX 10,000 UNIT/ML VIAL SQ ONE (10:13)
--- NOTE | 2024-11-27 10:14 | CON ---
Date of Consultation: 11/27/2024 Additional Consulting Physician: Dr. Pires. Reason For Consultation: Elevated BUN and creatinine, fluid management. 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 According to the patient, the patient started having chest heav iness and palpitation. For that reason, he reported to the hospital. The patient also complaining f rom nausea and diarrhea for the last couple of days. Denied any fever or chills. Upon arrival to [facility], found to have EKG changes and elevation in BUN and creatinine. For that reason, we have been consulted. The patient deny any recent change in his medication, deny any IV contrast. The [facility] visited with Dr. Fan recently, creatinine 4 in October with GFR of 15. Past Medical History: 1. Chronic kidney disease stage 5 secondary to diabetes nephropathy, hypertension, nephrosclerosis. Baseline creatinine 4 with GFR of 15 as of October 2024. 2. Hypertension. 3. Hyperlipidemia. 4. Diabetes since 1999, complicated with neuropathy and nephropathy. 5. CAD, complicated with congestive heart failure with ejection fraction of 30%. Allergies: NO KNOWN DRUGS ALLERGY. Home Medications: Includes aspirin, pantoprazole, PhosLo, calcitriol. Past Surgical History: Include cardiac cath with PTCA, cholecystectomy, appendectomy. Family History: Positive for diabetes and hypertension. Social History: Denied smoking. Denied drinking. Denied drugs abuse. Review of Systems: Head and Neck: No red eye. No ear pain. GI: Has diarrhea. Has decreased intake. : No polyuria. No dysuria. No hematuria. TEST TECH: Not applicable. Respiratory: No shortness of breath. Cardiovascular: Has chest pain. Has palpitation. Neuro: Has neuropathy. Musculoskeletal: Generalized fatigue. Endocrine: No polydipsia. Physical Examination: General: When I saw the patient, the patient is sitting in bed comfortable, not in any distress. Vital Signs: Blood pressure 133/74, pulse of 88, afebrile. Chest: Clear to auscultation. Heart: S1, S2. Systolic murmur. Abdomen: Soft, nontender. Extremities: No edema. Neurologic: Alert. No focality. Laboratory Data: Sodium 137, potassium 4.2, bicarb 18, BUN 59, creatinine 4.1, GFR of 14, calcium 7. 6, phosphorus 4.8, albumin 3.6. Back in October, creatinine 4, GFR of 15, WBC 5.3, hemoglobin of 8, ir on saturation of 14, ferritin 204, BNP 19,000. Current chest x-ray, cardiomegaly with congestion. Current Medications: Include aspirin, Plavix, atorvastatin, Tylenol, pantoprazole, PhosLo, calcitrio l. Assessment And Plan: 1. Chronic kidney disease, advanced secondary to diabetes nephropathy and cardiorenal, slightly on th e wet side to the normal volume. I am going to go ahead and resume his Lasix as 40 mg daily and we w ill follow up the patient. 2. Non-anion gap metabolic acidosis. We will start the patient on Tums. 3. Secondary hyperparathyroidism. Continue calcitriol. The patient did not tolerate PhosLo, calcium acetate. I will discontinue the calcium acetate and start the patient on Tums to help with acidosis and hyperphosphatemia. 4. Iron deficiency anemia. We will start the patient on IV iron and I will give the patient a single dose of Epogen and we will follow up the patient. 5. Congestive heart failure. Resume Lasix. 6. CAD, seen by Cardiology, cleared. We will follow up. 7. Hypertension, to utilize blood pressure for more diuresis. Thank you, Dr. Pires, for allowing us to participate in the care of your patient. EFRAIN Voice ID: [id number] Report ID: [id number]
[2024-11-27] MEDS ORDERED: FUROSEMIDE 40 MG/4 ML VIAL ONE (10:20)
--- NOTE | 2024-11-27 10:29 | P.DS ---
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 He reports the chest pain has become intermittent. EKG showing ST depressions at leads II, AVF, V5, V6. Laboratory evaluation significant for troponin 89, BUN/creatinine 52/3.68, GFR 17, H&H 8.3/24.5. Chest x-ray reports "Unchanged interstitial prominence which may reflect edema." Sylvain will be admitted to hospitalist service for further evaluation and treatment of NSTEMI with ST depressions, Cardiology consulted. Hospital Course: Sylvain was admitted and treated for the following diagnosis ST depression NSTEMI Systolic Congestive heart failure - EKG: ST depressions II, AVF,V5,V6 - troponin 89, Serial pending - Ordered transthoracic echocardiogram- cardiology did not need for evaluation - chest x-ray "Unchanged interstitial prominence which may reflect edema." - Consult Cardiology - cleared for discharge and continued home medications - S/P aspirin 324 mg PO x 1 in ED - Start daily baby aspirin and statin - Symptom control with PRN acetaminophen, morphine - continuous telemetry -TSH/FreeT4 and lipid panel WNL Diabetes - IDDM -Accu-Chek with sliding scale insulin CKD 3 -Consult nephrology -at baseline Hypertensive disorder -Continue home medication On 11/27/24, Sylvain was seen on morning rounds hemodynamically stable. Dr. Peralta and Dr. Martinez have evaluated him and cleared him for discharge with follow up visits for continued medical management. Physical Exam General: Alert, In no apparent distress, Oriented x3 HEENT: Atraumatic, Normocephalic Neck: 2+ carotid pulse no bruit, JVD not distended Respiratory: Clear to auscultation bilaterally Cardiovascular: Normal pulses, Regular rate/rhythm, Normal S1 S2 Capillary refill: <2 Seconds Gastrointestinal: Normal bowel sounds, Soft and benign Musculoskeletal: No clubbing Integumentary: No rashes Neurological: Normal speech, Normal tone Vital Signs/Physical Exam: Temp Pulse Resp BP Pulse Ox 97.9 F 88 18 133/74 95 11/27/24 08:00 11/27/24 08:00 11/27/24 08:00 11/27/24 08:00 11/27/24 08:00 Laboratory Data at Discharge: WBC 5.30 thou/uL (4.3-10.9) 11/27/24 04:51 Hgb 8.0 g/dL (13.6-17.9) L 11/27/24 04:51 Hct 24.2 % (39.6-49.0) L 11/27/24 04:51 Plt Count 235 thou/uL (152-406) 11/27/24 04:51 PT 13.9 SECONDS (10-13.0) H 11/26/24 10:41 INR 1.23 11/26/24 10:41 Sodium Cancelled 11/27/24 Unknown Potassium Cancelled 11/27/24 Unknown BUN Cancelled 11/27/24 Unknown Creatinine Cancelled 11/27/24 Unknown Glucose Cancelled 11/27/24 Unknown Phosphorus 4.8 mg/dL (2.5-4.9) 11/27/24 04:51 Magnesium 1.8 mg/dL (1.6-2.4) 11/27/24 04:51 Triglycerides 104 mg/dL (<150) 11/27/24 04:51 Cholesterol 124 mg/dL (<200) 11/27/24 04:51 HDL Cholesterol 52 mg/dL (40-60) 11/27/24 04:51 Cholesterol/HDL Ratio 2.38 11/27/24 04:51 Lipase 41 U/L (13-75) 11/26/24 10:41 Home Medications: Aspirin [Aspirin EC] 81 mg PO DAILY #30 tab 11/13/23 Pantoprazole [Protonix Tab*] 40 mg PO DAILY 30 Days #30 tab 02/03/24 Calcium Acetate [Phoslo*] 1,334 mg PO TIDWM #90 tab 11/11/24 Calcitrol [Rocaltrol*] 0.5 mcg PO DAILY 11/26/24 Physician Discharge Instructions: 1. Please call and schedule a follow-up appointment with your PCP in 3-5 days - Please follow-up with your PCP for medication refills/adjustments 2. Please call and schedule a follow-up appointment with Dr. Peralta in 3-5 days 3. Please call and schedule a follow-up appointment with /Mita in one week 4. Continue renal diet 5. activity restrictions fall precautions 6. Return to the ED if symptoms worsen Stop Lasix Diet: Renal Activity: Fall precautions Followup: Deisy Martinez MD [ACTIVE - CAN ADMIT] - 1 Week Matty Peralta MD [ACTIVE - CAN ADMIT] - 1 Week Nel Henley [Primary Care Provider] - 1 Week
[2024-11-27] MEDS: SOD FERRIC GLUC COMPLX/SUCROSE 250 MG in NA CHLORIDE 0.9% 250 ML IV SCH (11:06)
[2024-11-27] MEDS ORDERED: CALCIUM CARBONATE CHEW 500MG TAB PO SCH (11:30)
[2024-11-27 12:19] VITALS: BP 114/61; TEMP 97.5
[2024-11-27 14:02] VITALS: O2SAT 99
[2024-11-28] MEDS ORDERED: FUROSEMIDE 40 MG TABLET PO SCH (09:00)
--- NOTE | 2024-11-28 13:33 | EKG ---
Test Date: 2024-11-26 Test Time: 10:58:59 Anesthesiology Tech: AM MEASUREMENT RESULTS: Intervals: Rate: 98 MI: 180 QRSD: 88 QT: 356 QTc: 454 [place]: P: 42 MI: 180 QRS: 40 T: 179 INTERPRETIVE STATEMENTS: Normal sinus rhythm ST & T wave abnormality, consider inferolateral ischemia Abnormal ECG Compared to ECG 11/06/2024 13:06:41 Sinus tachycardia no longer present ST (T wave) deviation still present Possible ischemia still present Electronically Signed On 11-28-24 13:20:18 CDT by Matty Peralta
== END 2024-11-27 14:11 | disposition home or self-care (01) ==
LOC: ER 10:24 → ERHOLD 12:51 → 2ND 19:03
PROVIDERS: ADMIT Internal Medicine; ATTEND Internal Medicine
DX: I21.4 Non-ST elevation (NSTEMI) myocardial infarction (principal); R07.9 Chest pain, unspecified; I50.42 Chronic combined systolic (congestive) and diastolic (congestive) heart failure; I10 Essential (primary) hypertension; E11.22 Type 2 diabetes mellitus with diabetic chronic kidney disease; I12.9 Hypertensive chronic kidney disease with stage 1 through stage 4 chronic kidney disease, or unspecified chronic kidney disease; N18.30 Chronic kidney disease, stage 3 unspecified; D50.9 Iron deficiency anemia, unspecified; E21.3 Hyperparathyroidism, unspecified; E87.20 Acidosis, unspecified; Z79.82 Long term (current) use of aspirin; Z79.4 Long term (current) use of insulin
CPT/HCPCS: 36415; 71045; 80048; 80061; 81001; 83690; 83735; 83880; 84100; 84439; 84443; 84484; 85025; 85610; 93005; 96374; 99285; G0378; J1644; J1940; J2916; J3475; J7050; Q5106